=== PATIENT | male | born 1970 | race Caucasian/White ===

== ENCOUNTER 2021-11-05 10:22 | Emergency (ER) | payer SELFPAY ==
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
[2021-11-05 11:45] VITALS: BP 143/88; PULSE 98; RESP 16; TEMP 36.8; O2SAT 99; BMI 24.5
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
== END 2021-11-05 15:49 | disposition home or self-care (01) ==
PROVIDERS: Emergency Provider Student in an Organized Health Care Education/Training Program
DX: S06.0X9A Concussion with loss of consciousness of unspecified duration, initial encounter (principal); V89.2XXA Person injured in unspecified motor-vehicle accident, traffic, initial encounter; Y93.9 Activity, unspecified; Y92.410 Unspecified street and highway as the place of occurrence of the external cause; Y99.9 Unspecified external cause status
CPT/HCPCS: 70450; 72125; 99283; 99284

== ENCOUNTER → 2022-09-23 09:11 | Outpatient (BNVA) | payer OTHER, SELFPAY | PROVIDERS: Visit Provider Physician Assistant Medical | DX: S83.92XA Sprain of unspecified site of left knee, initial encounter (principal); X50.1XXA Overexertion from prolonged static or awkward postures, initial encounter | CPT/HCPCS: 73564; 99203 ==

== ENCOUNTER → 2022-09-30 14:13 | Outpatient (BNVA) | payer OTHER, SELFPAY | PROVIDERS: Visit Provider Physician Assistant Medical | DX: S83.92XA Sprain of unspecified site of left knee, initial encounter (principal); X50.1XXA Overexertion from prolonged static or awkward postures, initial encounter | CPT/HCPCS: 99213 ==

== ENCOUNTER 2022-10-08 19:29 | Outpatient (REF) | payer OTHER, SELFPAY ==
--- NOTE | ~2022-10-08 | MR_ITS ---
EXAMINATION: MR KNEE WITHOUT CONTRAST, LEFT CLINICAL INFORMATION: Left knee pain, swelling, numbness. Fall with twisting injury. COMPARISON: Left knee radiographs dated 09/23/2022. TECHNIQUE: MRI of the knee without contrast was performed using routine sequences on a high-field scanner. FINDINGS: MENISCI: Medial Meniscus: Nondisplaced oblique tibial articular surface tear through the posterior meniscal body extending to the posterior horn where there is minimal inner margin fraying. Lateral Meniscus: Intact. LIGAMENTS: Cruciate: Intact. Collateral: Edema adjacent to the medial collateral ligament consistent with a grade 1 sprain. Intact fibular collateral ligament. EXTENSOR MECHANISM: Intact. ARTICULAR CARTILAGE/BONE: Patellofemoral Compartment: Normal. Medial Compartment: Intact articular cartilage. Anterior marrow edema consistent with an osseous contusion. Lateral Compartment: Normal. JOINT FLUID AND BURSAE: Trace joint effusion and trace Neri's cyst. MR/MR knee LT wo con IMPRESSION: Nondisplaced oblique tibial articular surface tear through the posterior medial meniscal body extending to the posterior horn with minimal inner margin fraying. Grade 1 sprain of the medial collateral ligament. Osseous contusion at the anterior aspect of the medial femoral condyle. No articular cartilage defect. Trace joint effusion and trace Neri's cyst.
== END 2022-10-08 19:30 | disposition home or self-care (01) ==
LOC: HO.MRI 19:29
PROVIDERS: Visit Provider Internal Medicine
DX: M25.562 Pain in left knee (principal); R60.0 Localized edema
CPT/HCPCS: 73721

== ENCOUNTER → 2022-10-14 13:59 | Outpatient (BNVA) | payer OTHER, SELFPAY | PROVIDERS: Visit Provider Physician Assistant Medical | DX: M23.92 Unspecified internal derangement of left knee (principal); S86.21 Strain of muscle(s) and tendon(s) of anterior muscle group at lower leg level; S76.312D Strain of muscle, fascia and tendon of the posterior muscle group at thigh level, left thigh, subsequent encounter; X50.1XXD Overexertion from prolonged static or awkward postures, subsequent encounter | CPT/HCPCS: 73502; 99214 ==

== ENCOUNTER 2022-10-29 13:35 | Outpatient (REF) | payer OTHER, SELFPAY ==
--- NOTE | ~2022-10-29 | MR_ITS ---
EXAMINATION: MR HIP WITHOUT CONTRAST, LEFT CLINICAL INFORMATION: Fall. Pain. Numbness. COMPARISON: Pelvic and left hip radiograph dated 10/14/2022. TECHNIQUE: MRI of the left hip was obtained using routine sequences on a high-field magnet. FINDINGS: ACETABULAR LABRUM: No displaced labral tear. ARTICULAR CARTILAGE/BONE: Intact articular cartilage. No stress reaction, fracture, or avascular necrosis. No concerning lytic or blastic osseous lesion. The acetabular depth is within normal limits. MUSCLES/TENDONS: The visualized muscles and tendons are intact. No evidence of acute injury. JOINT FLUID/BURSA: No significant joint effusion. INTRAPELVIC STRUCTURES: Unremarkable. MR/MR hip LT wo con IMPRESSION: No displaced several tear. No acute osseous injury. No stress reaction, fracture, or avascular necrosis.
== END 2022-10-29 13:36 | disposition home or self-care (01) ==
LOC: HO.MRI 13:35
PROVIDERS: Visit Provider Internal Medicine
DX: M25.552 Pain in left hip (principal); Z91.81 History of falling
CPT/HCPCS: 73721

== ENCOUNTER 2022-10-30 10:00 | Outpatient (RCR) | payer OTHER, SELFPAY ==
--- NOTE | 2022-10-21 18:37 | MHC.PT.EP ---
[facility] [place] Office [place] Office [place] Office [address] Fany Gastelum [address] [phone] F: [phone] F: [phone] F: [phone] F: [phone] Physical Therapy Plan of Care Date of Evaluation: Date of Surgery: Diagnosis: L hip and thigh contusion/ sprain Assessment: Pt is a 52 y/o male referred to PT for eval and treat of L hip and thigh pain resulting in decreased tolerance for walking, standing, squatting, performing heavy HH chores, negotiating stairs as well as sitting for duration secondary to decreased L knee and hip ROM, gait abnormality, increased LE tissue tension, evidence of osseous contusion, MCL and medial meniscus involvement in L knee on MRI, and pain. Pt is deemed an appropriate candidate to receive skilled PT services to address their physical impairments in order to improve their functional ability. Frequency and Duration: The patient will be seen 2x/ wk x 8 wks Short Term Goals: Initiate HEP. Pt will ambulate w/o AD; current: x1 axillary crutch. Fci Goals: I with HEP. Improve L knee flexion and extension MMT by at least 1/2 MMT grade. Pt will negotiate 1 fl of stairs reciprocally; initial: non reciprocal. Pt will be able to walk 2 blocks with at most a little bit of difficulty; initial: unable or with extreme difficulty. Treatment Plan: Modalities to reduce pain, spasms and effusion. Manual therapy to restore motion and function. Therapeutic exercise to improve strength and flexibility. Neuromuscular re-education for posture and balance. Therapeutic activities to return to functional activities of daily living. Electronically signed by: Ray Douglas PT Please sign and return to therapist. Thank you for your referral.
--- NOTE | 2022-11-13 07:20 | MHC.PT.DC ---
[facility] [place] Office [place] Office [place] Office [address] Fany Gastelum [address] [phone] F: [phone] F: [phone] F: [phone] F: [phone] Physical Therapy Discharge Report Diagnosis: L hip and thigh contusion/ sprain Date of Surgery: Date of Evaluation: 10/21/22 Date of Discharge: 11/13/22 Treatments to Date: 2 Cancellations to Date: No Shows to Date: Discharge Status: Patient Elected to Stop Discharge Summary: Therapy informed Pt will be having surgery. Electronically signed by: Ray Douglas PT. Please sign and return to therapist. Thank you for your referral.
== END 2022-11-13 07:21 | disposition home or self-care (01) ==
LOC: HO.PTCHIC 10:00
PROVIDERS: Visit Provider Physician Assistant Medical
DX: S70.02XD Contusion of left hip, subsequent encounter (principal); S70.12XD Contusion of left thigh, subsequent encounter; S76.912D Strain of unspecified muscles, fascia and tendons at thigh level, left thigh, subsequent encounter
CPT/HCPCS: 97110; 97116; 97161

== ENCOUNTER → 2022-11-03 11:01 | Outpatient (BNVA) | payer OTHER, SELFPAY | PROVIDERS: Visit Provider Physician Assistant Medical | DX: S76.012D Strain of muscle, fascia and tendon of left hip, subsequent encounter (principal); S83.92XD Sprain of unspecified site of left knee, subsequent encounter; X50.1XXD Overexertion from prolonged static or awkward postures, subsequent encounter | CPT/HCPCS: 99213 ==

== ENCOUNTER 2022-12-17 10:00 | Outpatient (RCR) | payer OTHER, SELFPAY | END 2022-12-18 10:42 | disposition home or self-care (01) | LOC: HO.PTCHIC 10:00 | PROVIDERS: Visit Provider Orthopaedic Surgery | DX: S70.02XD Contusion of left hip, subsequent encounter (principal) | CPT/HCPCS: 97110; 97161 ==

== ENCOUNTER 2023-04-26 07:00 | Outpatient (RCR) | payer OTHER, SELFPAY | END 2023-05-07 14:40 | disposition home or self-care (01) | LOC: HO.PTCHIC 07:00 | PROVIDERS: Visit Provider Orthopaedic Surgery | DX: Z98.890 Other specified postprocedural states (principal) | CPT/HCPCS: 97110; 97112; 97140; 97161 ==

== ENCOUNTER 2023-11-23 10:50 | Emergency (ER) | payer MEDICAID, SELFPAY ==
--- NOTE | ~2023-11-23 | XR_ITS ---
EXAMINATION: XR CHEST 2 VIEW CLINICAL INFORMATION: Cough and fevers COMPARISON: None TECHNIQUE: PA and lateral views of the chest obtained. FINDINGS: The lungs are clear. There are no pleural effusions. The cardiomediastinal silhouette is normal. XR/XR chest 2V IMPRESSION: No acute cardiopulmonary disease.
[2023-11-23 10:53] VITALS: BP 146/97; PULSE 96; RESP 19; TEMP 36.6; O2SAT 98; BMI 22.7
[2023-11-23 11:31] LABS: IDNOW Serial# 08D9AD1C
[2023-11-23 11:32] LABS: COVID-19 Test Negative (Negative); IDNOW Serial# 152EDE1D; Influenza A Negative (Negative); Influenza B2 Negative (Negative)
--- NOTE | 2023-11-23 11:41 | ED_ITS ---
HPI - URI/Sore Throat General Chief Complaint: Upper Respiratory Symptoms Stated Complaint: Fever Body Aches Time Seen by Provider: 11/23/23 12:46 Source: patient Mode of arrival: ambulatory Limitations: no limitations History of Present Illness HPI Narrative: Patient is a 53-year-old male presenting to the emergency department with complaint of night sweats and chills for the past 4 days as well as nonproductive cough and body aches. Did not check temperature with thermometer. States that since November 01 he has had a an unintentional 10 lb weight loss as well as decreased appetite. Reports intermittent abdominal pain to all different quadrants of his abdomen. Reports 1 episode of diarrhea in the morning for the past 4 mornings, denies any nausea, vomiting, constipation. States that he was seen in [facility] Emergency Department on / and was referred to an outpatient doctor who ordered an ultrasound which he has scheduled for Wednesday. Currently does not have a PCP but is attempting to establish one. Denies chest pain, palpitations, dizziness, lightheadedness. Does report some dysuria, denies back or flank pain. MD elicited complaint: fever and cough Onset (ago): day(s) Associated symptoms: fever, chills and myalgias Treatments prior to arrival: none Related Data Allergies Allergy/AdvReac Type Severity Reaction Status Date / Time No Known Allergies Allergy Verified 11/05/21 11:48 Review of Systems 2 Review of Systems: As per HPI. Yes all other systems are reviewed and are negative Constitutional: Constitutional: Reports as per HPI [facility] Past Medical History Medical History (Updated 11/23/23 @ 14:14 by Ruthie Mccabe NP) No known health problems Social History Social History Smoked in Last 30 Days: No Use of substances other than those prescribed or required for medical reasons: No Advance Directives: No Physical Exam 2 Vital Signs: Vital Signs: Last Vital Signs Temp 98 F 11/23/23 10:53 Pulse 96 11/23/23 10:53 Resp 19 11/23/23 10:53 BP 146/97 H 11/23/23 10:53 Pulse Ox 98 11/23/23 10:53 O2 Del Method Room Air 11/23/23 10:53 BMI result Body Mass Index 22.7 Vital signs have been reviewed and appear to be correct. Blood pressure elevated. Heart rate normal. Respiratory rate normal. Temperature normal. Oxygen saturation normal. Const: General: cooperative, healthy appearing and no acute distress O rientation/consciousness: oriented to person, oriented to place, oriented to time and patient oriented x3 Limitations: no limitations HEENT: Head: Yes normocephalic and Yes atraumatic Ears: external ears normal General nose exam: Normal external nose present Face and sinus: Yes face symmetric Mouth: oropharynx normal and moist mucous membranes Throat: Yes uvula midline Eyes: Pupils: Equal, round and reactive pupils present Neck: Neck: Yes normal visual inspection and Yes supple Resp: Effort & Inspection: normal respiratory effort and able to speak in complete sentences Auscultation: clear to auscultation bilaterally and wheezes scattered wheezes Cardio: Rate: regular rate Rhythm: regular rhythm Heart sounds: S1 normal heart sound present and S2 normal heart sound present GI: Inspection: Yes normal to inspection Palpation (GI): Soft to palpation and nontender Auscultation: normoactive bowel sounds : General: Yes no CVA tenderness Back/Spine/Pelvis: Back: no CVA tenderness Skin: Other: very slight erythematous excoriation to right lateral ribs, no vesicles, no warmth General skin exam: elasticity normal and turgor normal Neuro: General: oriented to person, oriented to place, oriented to time, patient oriented x3, moves all extremities, no focal motor deficits and CN's II- XI intact bilaterally Cranial nerves: Yes Equal, round and reactive pupils present Cognition (Neuro): normal cognition Extrem: General: Yes full ROM, Yes no pedal edema and Yes no calf tenderness Psych: Mental Status: mental status grossly normal Affect: normal affect Thought process: Normal thought process present Course Course Course Narrative: RME: 53 year-old M w/ no sig PMHx presenting to the ED c/o chills, night sweats, mild SOB, rash x few days and 10lb weight loss since XM. Lungs CTA COVID & FLU neg tpday EKG, Labs, UA ordered Full HPI, ROS and PE to be performed by primary ED provider. Medical Decision Making Medical Decision Making [facility] Narrative: Patient is a 53-year-old male presenting to the emergency department with complaint of night sweats and chills for the past 4 days as well as nonproductive cough and body aches. On exam patient is awake, A+Ox3, VS WNL, afebrile, normal neurological exam without focal deficits, physical exam findings as above. Given reported symptoms and physical exam findings, initial differential includes viral illness, covid, influenza, UTI, bronchitis, pneumonia, contact dermatitis versus superficial abrasion. Rash not consistent with folliculitis, herpes zoster, bed bugs, scabies. Labs unremarkable. X-ray chest notable for no evidence of pneumonia. My interpretation is in agreement with the radiologist's interpretation. UA notable for trace blood, 6-10 RBCs. Results discussed with patient and all questions answered. Recent symptoms most consistent with viral illness however feel patient should be followed by PCP. Patient provided with resources for this in the ED. Advised patient to alternate Tylenol and ibuprofen for fever/discomfort. Return precautions discussed at bedside. Patient verbalized understanding of and agreement with plan. Differential Diagnosis Differential Diagnoses: The differential diagnosis associated with the presentation includes As per MDM. Lab Data [facility] Lab Attestation statement: I reviewed the patient's lab results. As per [facility]. 11/23/23 12:06 11/23/23 12:06 Labs: Lab Results 11/23/23 11/23/23 11/23/23 Range/Units 11:00 12:06 13:21 WBC 4.4 L (4.8-10.8) X10*3/uL RBC 5.08 (4.60-5.80) X10*6/uL Hgb 15.4 (14.0-18.0) g/dl Hct 44.7 (42.0-52.0) % MCV 88.0 (80.0-98.0) fL MCH 30.3 (27.0-33.0) pg MCHC 34.5 (31.0-36.0) g/dl RDW 12.3 (11.0-16.0) % Plt Count 214 (160-400) X10*3/uL MPV 9.4 (9.4-12.4) fL Immature Gran % (Auto) 0.2 (0.0-0.4) % Neut % (Auto) 50.0 (45-73) % Lymph % (Auto) 35.2 (20-40) % [place] % (Auto) 13.9 H (2-11) % Eos % (Auto) 0.5 (0-4) % Baso % (Auto) 0.2 (0-2) % Lymph # (Auto) 1.5 (1.2-4.9) X10*3/uL [place] # (Auto) 0.6 (0.1-1.2) X10*3/uL Eos # (Auto) 0.0 (0.0-0.4) X10*3/uL Baso # (Auto) 0.0 (0.0-0.2) X10*3/uL Abs Immat Gran (auto) 0.01 (0.00-0.03) X10*3/uL Absolute Neuts (auto) 2.2 (2.0-8.3) x10*3/uL Absolute Nucleated RBC 0.000 (0.0-0.012) X10*3/uL Nucleated RBC % (auto) 0.0 (0.0-0.2) /100WBC Sodium 141 (135-145) mmol/L Potassium 3.8 (3.3-5.1) mmol/L Chloride 108 (96-108) mmol/L Carbon Dioxide 27 (22-29) mmol/L Anion Gap 10 L (12-20) BUN 16 (9-16) mg/dL Creatinine 0.84 (0.5-1.4) mg/dL Estim Creat Clear Calc 96.7 Estimated GFR > 60 Random Glucose 103 (60-115) mg/dL Calcium 9.2 (8.4-10.2) mg/dL Magnesium 1.9 (1.6-2.6) mg/dL Total Bilirubin 0.8 (0.0-1.0) mg/dL Direct Bilirubin 0.3 (0.0-0.5) mg/dL AST 18 (5-37) U/L ALT 29 (0-40) U/L Alkaline Phosphatase 58 (39-117) U/L Total Protein 7.3 (6.5-8.0) g/dL Albumin 4.0 (3.5-5.0) g/dL Lipase 35 (8-78) U/L Urine Color Dark Yellow Urine Appearance Clear Urine pH 5.5 (5.0-9.0) Ur Specific [place] 1.025 (1.005-1.025) Urine Protein Trace (Neg-Trace) mg/dL Urine Glucose (UA) Negative (Negative) mg/dL Urine Ketones 15 (Negative) mg/dL Urine Blood Trace H (Negative) Urine Nitrite Negative (Negative) Ur Leukocyte Esterase Negative (Negative) Urine RBC 6-10 H (0-2) /HPF Urine WBC 0-5 (0-5) /HPF Ur Squamous Epith Cells 0-2 (0-2) /HPF Urine Bacteria None Seen (None Seen) Hyaline Casts 3-5 (0-2) /LPF COVID-19 (JOSE [facility] JESUS) Negative (Negative) COVID-19 Clin Com See Note Influenza Type A (MARIELA) Negative (Negative) Influenza Type B (MARIELA) Negative (Negative) Influenza A & B Note See Note Independent Interpretation I performed an independent interpretation of an: Plain X-Ray Interpretation: No evidence of pneumonia Radiology Impression Discussion of test interpretation with radiology: I have reviewed the radiologist's reading. Radiologist Impression: XR/XR chest 2V IMPRESSION: No acute cardiopulmonary disease. External Record Review External record reviewed: Inpatient record, Office record and Outpatient record Discharge Plan Discharge Clinical Impression: Viral infection Patient Disposition: Home, Self-Care Instructions: Viral Syndrome (ED) Additional Instructions: You were evaluated in the emergency department today for fever and cough. Your Covid and flu tests were negative. Your urinalysis did not show signs of infection. Your chest x-ray did not show evidence of pneumonia. Your symptoms are likely related to a viral illness which will resolve on its own with time and rest. You should ensure adequate fluid intake, and can use Tylenol 650 mg or ibuprofen 600 mg every 6 hours as needed for fever or discomfort. Please continue to attempt to establish care with a primary care for further evaluation of your ongoing symptoms. Return to the emergency department if you develop chest pain, worsening shortness of breath, difficulty swallowing, fever 100.4? F or greater or any other concerning symptoms.
[2023-11-23 12:11] LABS: MANUAL DIFF FLAG NO
[2023-11-23 12:14] LABS: Basophils Percent Auto 0.2 % (0-2); Eosinophils Percent Auto 0.5 % (0-4); Hematocrit 44.7 % (42.0-52.0); Hemoglobin 15.4 g/dl (14.0-18.0); Imm Gran Abs Auto 0.01 X10*3/uL (0.00-0.03); Imm Gran Pct Auto 0.2 % (0.0-0.4); Lymphocytes Absolute Auto 1.5 X10*3/uL (1.2-4.9); Lymphocytes Percent Auto 35.2 % (20-40); Mean Corpuscular HGB Conc 34.5 g/dl (31.0-36.0); Mean Corpuscular Hemoglobin 30.3 pg (27.0-33.0); Mean Platelet Volume 9.4 fL (9.4-12.4); Monocytes Absolute Auto 0.6 X10*3/uL (0.1-1.2); Monocytes Percent Auto 13.9 % (2-11); Neutrophils Absolute Auto 2.2 x10*3/uL (2.0-8.3); Platelet Count 214 X10*3/uL (160-400); Red Blood Count 5.08 X10*6/uL (4.60-5.80); Red Cell Distribution Width 12.3 % (11.0-16.0); White Blood Count 4.4 X10*3/uL (4.8-10.8)
[2023-11-23 12:29] LABS: Alanine Aminotransferase 29 U/L (0-40); Alkaline Phosphatase 58 U/L (39-117); Anion Gap 10 (12-20); Aspartate Amino Transferase 18 U/L (5-37); Bilirubin Direct 0.3 mg/dL (0.0-0.5); Bilirubin Total 0.8 mg/dL (0.0-1.0); Blood Urea Nitrogen 16 mg/dL (9-16); Calcium 9.2 mg/dL (8.4-10.2); Carbon Dioxide 27 mmol/L (22-29); Chloride 108 mmol/L (96-108); Creatinine Clr Calc Pharmacy 96.7; Estimated Glomerular Filt Rate > 60; Glucose Random 103 mg/dL (60-115); Lipase 35 U/L (8-78); Magnesium 1.9 mg/dL (1.6-2.6); Potassium 3.8 mmol/L (3.3-5.1); Sodium 141 mmol/L (135-145); Total Protein 7.3 g/dL (6.5-8.0)
--- NOTE | 2023-11-23 13:25 | PC.NURSE ---
pt from home reporting 4 nights of sweating, chills and red spots on ribs. pt noted to have a rash under the right armpit. pt reports he was told by a pcp he may have shingle. pt respirations even and unlabored.
--- NOTE | 2023-11-23 13:25 | PC.NURSE ---
urine sample obtained and sent at this time.
[2023-11-23 13:29] LABS: Appearance Urine Clear; Color Urine Dark Yellow; Glucose Urine UA Negative (Negative); Leukocyte Esterase Urine Negative (Negative); Nitrite Urine Negative (Negative); PH 5.5 (5.0-9.0); Specific Gravity - Urine 1.025 (1.005-1.025); UMIC TRIGGER UACC YES; Urine Blood Trace (Negative); Urine Ketones 15 mg/dL (Negative); Urine Protein Trace mg/dL (Neg-Trace)
[2023-11-23 13:31] LABS: Bacteria Urine None Seen (None Seen); Squamous Epithelial Cell Urine 0-2 /HPF (0-2); WBC Urine 0-5 /HPF (0-5)
== END 2023-11-23 16:12 | disposition home or self-care (01) ==
PROVIDERS: Physician Assistant; Emergency Provider Emergency Medicine Emergency Medical Services
DX: B34.9 Viral infection, unspecified (principal); Z11.52 Encounter for screening for COVID-19; R06.02 Shortness of breath; R30.0 Dysuria
CPT/HCPCS: 36415; 71046; 80048; 80076; 81001; 83690; 83735; 85025; 87502; 87635; 99283; 99284

== ENCOUNTER 2024-02-02 10:40 | Outpatient (REF) | payer MEDICAID, SELFPAY ==
[2024-02-02 14:15] LABS: MANUAL DIFF FLAG NO
[2024-02-02 14:18] LABS: Basophils Percent Auto 0.5 % (0-2); Eosinophils Absolute Auto 0.2 X10*3/uL (0.0-0.4); Eosinophils Percent Auto 4.2 % (0-4); Hematocrit 45.3 % (42.0-52.0); Hemoglobin 15.2 g/dl (14.0-18.0); Imm Gran Abs Auto 0.02 X10*3/uL (0.00-0.03); Imm Gran Pct Auto 0.3 % (0.0-0.4); Lymphocytes Absolute Auto 1.4 X10*3/uL (1.2-4.9); Lymphocytes Percent Auto 23.8 % (20-40); Mean Corpuscular HGB Conc 33.6 g/dl (31.0-36.0); Mean Corpuscular Hemoglobin 30.3 pg (27.0-33.0); Mean Corpuscular Volume 90.4 fL (80.0-98.0); Mean Platelet Volume 10.6 fL (9.4-12.4); Monocytes Absolute Auto 0.6 X10*3/uL (0.1-1.2); Monocytes Percent Auto 9.6 % (2-11); Neutrophils Absolute Auto 3.5 x10*3/uL (2.0-8.3); Neutrophils Percent Auto 61.6 % (45-73); Platelet Count 260 X10*3/uL (160-400); Red Blood Count 5.01 X10*6/uL (4.60-5.80); Red Cell Distribution Width 12.7 % (11.0-16.0); White Blood Count 5.8 X10*3/uL (4.8-10.8)
[2024-02-02 14:50] LABS: Alanine Aminotransferase 18 U/L (0-40); Albumin Level 4.2 g/dL (3.5-5.0); Alkaline Phosphatase 54 U/L (39-117); Anion Gap 10 (12-20); Aspartate Amino Transferase 13 U/L (5-37); Bilirubin Direct 0.3 mg/dL (0.0-0.5); Bilirubin Total 1.1 mg/dL (0.0-1.0); Blood Urea Nitrogen 18 mg/dL (9-16); Calcium 9.6 mg/dL (8.4-10.2); Carbon Dioxide 31 mmol/L (22-29); Chloride 104 mmol/L (96-108); Cholesterol 174 mg/dL (<200); Estimated Glomerular Filt Rate > 60; Glucose Random 101 mg/dL (60-115); HDL Cholesterol 41 mg/dL (>40); LDL Cholesterol Calculated 105 mg/dL (<100); Sodium 141 mmol/L (135-145); Total Protein 7.4 g/dL (6.5-8.0); Triglycerides 143 mg/dL (<150)
[2024-02-02 15:00] LABS: PSA,Total (Free>4and<10) 1.82 ng/mL (0.00-4.00)
[2024-02-02 15:06] LABS: TSH reflex Free T4 0.16 uIU/mL (0.32-4.0)
[2024-02-02 15:28] LABS: Appearance Urine Cloudy; Color Urine Yellow; Glucose Urine UA Negative (Negative); Leukocyte Esterase Urine Negative (Negative); Nitrite Urine Negative (Negative); PH 7.5 (5.0-9.0); Urine Blood Negative (Negative); Urine Ketones Negative (Negative); Urine Protein Negative (Neg-Trace)
[2024-02-02 16:04] LABS: Free T4 (Free Thyroxine) 0.93 ng/dL (0.71-1.85)
[2024-02-02 16:17] LABS: CT PCR NOT DETECTED (Not Detect.); NG PCR NOT DETECTED (Not Detect.)
[2024-02-03 07:05] LABS: HBc Num1 0.08 S/CO (0.00-0.79); HBsAGNum1 0.37 S/CO (0.00-0.99); HIV AB/AG Nonreactive (Nonreactive); HIV Num 1 0.05 S/CO (0.00-0.99); Hepatitis A Antibody IgM 0.12 Index (0-0.79); Hepatitis B Core Antibody Nonreactive (Nonreactive); Hepatitis B Surface Antigen Negative (Negative); ~HepC Num1 0.08 S/CO (0.00-0.79); ~Hepatitis A Antibody IgM Nonreactive (Nonreactive); ~Hepatitis B Surface Antibody NONREACTIVE (Nonreactive); ~Hepatitis C Antibody Nonreactive (Nonreactive)
[2024-02-03 07:17] LABS: Syphilis Screen Nonreactive (Nonreactive)
== END 2024-02-02 10:41 | disposition home or self-care (01) ==
LOC: HO.CHCLDS 10:40
PROVIDERS: Visit Provider Pediatrics
DX: Z11.4 Encounter for screening for human immunodeficiency virus [HIV] (principal); Z11.3 Encounter for screening for infections with a predominantly sexual mode of transmission; N20.0 Calculus of kidney; K40.90 Unilateral inguinal hernia, without obstruction or gangrene, not specified as recurrent
CPT/HCPCS: 0353U; 36415; 80053; 80061; 81003; 82248; 84153; 84439; 84443; 85025; 86704; 86706; 86709; 86780; 86803; 87340; 87389

== ENCOUNTER 2024-02-09 11:54 | Emergency (ER) | payer MEDICAID, SELFPAY ==
--- NOTE | ~2024-02-09 | CT_ITS ---
EXAMINATION: CT ABDOMEN AND PELVIS WITH CONTRAST CLINICAL INFORMATION: Right groin pain. COMPARISON: None available. TECHNIQUE: Multidetector volumetric images were obtained from the superior aspect of the liver through the pubic symphysis following administration 85 mL of Omnipaque 350 intravenous contrast. Sagittal and coronal reformatted images were obtained on the technologist's workstation. Oral contrast: No This CT examination was performed using dose optimization techniques as appropriate, variously including the following: *Automated exposure control *Adjustment of mA and/or kV according to patient size (this includes techniques or standardized protocols for targeted exams where dose is matched to indication/reason for exam; i.e. extremities or head) *Use of iterative reconstruction technique DLP: 415 mGy-cm FINDINGS: LUNG BASES: The visualized lung bases are unremarkable. LIVER, GALLBLADDER, AND BILIARY TREE: There are subcentimeter hypodensities within the liver too small to characterize but likely small cysts. There is no intrahepatic biliary duct dilatation. The gallbladder is unremarkable with no evidence of radiopaque gallstones, gallbladder wall thickening, or obvious pericholecystic inflammatory changes. PANCREAS: Unremarkable. SPLEEN: Unremarkable. ADRENAL GLANDS: Unremarkable. KIDNEYS AND URETERS: The kidneys are normal in size, shape, and attenuation. No hydronephrosis, hydroureter, or calculi seen. No perinephric stranding. There is a 3.1 cm cyst midpole right kidney and a 2 cm cyst lower pole left kidney. There is a subcentimeter hypodensity lower pole left kidney also likely a cyst. BLADDER: Unremarkable. GASTROINTESTINAL TRACT: The small and large bowel are unremarkable. The appendix is not seen. There is minimal infiltrative changes in the right lower quadrant extending toward the right groin likely postprocedural. ABDOMINAL WALL: There are surgical clips in the region of the right groin. There is no evidence for hernia recurrence or fluid collection. LYMPH NODES: Normal. VASCULAR: Unremarkable. PELVIC VISCERA: Unremarkable. OSSEOUS STRUCTURES: Unremarkable. CT/CT abdomen pelvis w IV con IMPRESSION: 1. Postsurgical changes in the right groin. No evidence for hernia recurrence or fluid collection. 2. Bilateral renal cysts. 3. Subcentimeter hypodensities in the liver too small to characterize but likely small cysts. Fleischner guidelines were followed.
[2024-02-09 12:30] VITALS: BP 151/92; PULSE 81; RESP 18; TEMP 36.6; O2SAT 98; BMI 23.4
--- NOTE | 2024-02-09 12:32 | ED_ITS ---
HPI - General Adult General Chief complaint: Abdominal Pain Stated complaint: Pain R Groin Area Time Seen by Provider: 02/09/24 22:05 Source: patient Mode of arrival: ambulatory Limitations: no limitations History of Present Illness HPI narrative: 54-year-old male who had a right groin hernia repair on 01/19/2024 (2 weeks prior) at [facility]. Patient states that since the surgery he has had constant right groin pain and he now believes that there is a mass in his right groin area. The patient is concerned that his hernia has recurred. He states he has not followed up with a surgeon yet. Patient states the pain is a constant, tightness which is 9/10 at its worst. Patient denied nausea vomiting. He states he did have a bowel movement today but otherwise as felt very constipated. He denies feeling bloated. Patient has been taking tramadol with only minimal relief his pain. Related Data Previous Rx's ?Medication ?Instructions ?Recorded oxycodone 5 mg tablet 5 mg PO Q6H PRN pain #10 tabs 02/10/24 Allergies Allergy/AdvReac Type Severity Reaction Status Date / Time No Known Allergies Allergy Verified 02/09/24 12:33 Review of Systems 2 Review of Systems: Yes all other systems are reviewed and are negative [facility] Past Medical History [facility] Narrative: Past medical history: None. Surgical history: Appendectomy, right groin hernia repair 2 weeks prior at [facility], 2 previous hernia repairs, testicular torsion. Social history: He denies tobacco use. He occasionally drinks alcohol. He denies drug use. Medical History (Updated 02/10/24 @ 02:49 by Salas Wasserman MD) No known health problems Social History Social History Advance Directives: No Advance Directives Information Provided: No Physical Exam ED Vital Signs: Vital Signs - 24 hr 02/09/24 12:30 02/09/24 16:56 02/09/24 21:50 Temperature 97.9 F 98.1 F 98.2 F Pulse Rate 81 73 83 Respiratory Rate 18 16 16 Blood Pressure 151/92 H 150/92 H 154/102 H Pulse Oximetry 98 100 98 Oxygen Delivery Method Room Air Room Air Room Air 02/10/24 00:11 Temperature 98.0 F Pulse Rate 79 Respiratory Rate 14 Blood Pressure 134/83 Pulse Oximetry 98 Oxygen Delivery Method Room Air BMI result Body Mass Index 23.4 Vital signs revealed an elevated blood pressure of 151/92 otherwise unremarkable Exam: General: Awake, alert in no distress Head: Normocephalic, atraumatic Lung: breath sounds symmetric, no wheezing, rales or rhonchi Heart: regular rate and rhythm, normal S1, S2 no murmurs or rubs Abdomen: Patient has evidence of laparoscopic surgery with ecchymosis in the periumbilical area, patient's right groin area does have a 2 x 2 cm mass which is tender to palpation. Patient's penis is uncircumcised and appears to be normal. There has no scrotal masses, testicles are descended bilaterally and nontender. Hernia exam revealed no indirect pulsation bilaterally Psych: Pleasant, cooperative Course Course Course Narrative: RME: 54 yo male here w/ right groin pain x weeks. had hernia repair on 01/27/24, had f/u appointment yesterday regarding continued right groin pain. he was discharged home with follow up appointment in march. here today with continued pain.?denies penile discharge, dysuria, hematuria, abdominal pain. exam limited in triage. labs ordered, UA +/- imaging per primary provider. Full HPI, ROS and PE to be performed by the primary ED provider. Medications Administered Discontinued Medications Generic Name Dose Route Start Last Admin Trade Name Savanna PRN Reason Stop Dose Admin Acetaminophen 650 mg 02/09/24 16:58 02/09/24 17:02 Acetaminophen 325 Mg Tablet PO 02/09/24 16:59 650 mg ONCE ONE Administration Sodium Chloride 1,000 mls @ 999 mls/hr 02/09/24 22:25 02/09/24 23:34 Ns IV 02/09/24 23:25 999 mls/hr .Q1H1M STA Administration Iohexol 85 ml 02/09/24 23:10 02/09/24 23:10 Iohexol 350 Mg/Ml 100 Ml Infus..Btl IV 02/09/24 23:11 85 ml ONCE ONE Administration Ketorolac Tromethamine 15 mg 02/09/24 22:25 02/09/24 23:33 Ketorolac Tromethamine 15 Mg/Ml Vial IVPUSH 02/09/24 22:26 15 mg ONCE STA Administration Ondansetron HCl 4 mg 02/09/24 22:30 02/09/24 23:33 Ondansetron Hcl 4 Mg/2 Ml Vial IVPUSH 02/09/24 22:31 4 mg ONCE ONE Administration Medical Decision Making Medical Decision Making [facility] Narrative: 54-year-old male 2 weeks status post right inguinal hernia repair at [facility] who presents emergency department for evaluation of constant right lower groin pain with a mass in the right groin area. Patient is concerned that his hernias repair was unsuccessfully now has a hernia again. Vital signs did reveal an elevated blood pressure otherwise unremarkable. The patient does have a mass in his right groin area which is tender but he does not have evidence for an indirect hernia. Differential diagnosis: ?Includes but is not limited to inguinal hernia, incarcerated inguinal hernia, hematoma, seroma Following evaluation was ordered: CBC, CMP, urinalysis, CT scan of the abdomen pelvis with IV contrast Patient was initially treated with the following: Normal saline IV x1 L, Toradol 15 mg IV, Zofran 4 mg IV Course: 22:38 My interpretation patient's laboratory evaluation as follows: CBC was normal. CMP was normal. Urinalysis was negative 02:46 Radiology interpretation of the patient's CT scan of the abdomen pelvis revealed no hernia, the patient has post surgical changes in the right groin with no hernia recurrence or fluid collection. I did discuss this with the patient. Patient was advised to continue taking ibuprofen for pain and for pain not relieved by ibuprofen he was prescribed oxycodone. He was given printed and verbal instructions and discharged home. Admission/Observation Consideration of admission/observation: Escalation of care including admission/observation considered Lab Data [facility] Lab Attestation statement: I reviewed the patient's lab results. 02/09/24 13:04 02/09/24 13:04 Labs: Lab Results 02/09/24 02/09/24 Range/Units 13:04 17:07 WBC 7.4 (4.8-10.8) X10*3/uL RBC 5.02 (4.60-5.80) X10*6/uL Hgb 15.2 (14.0-18.0) g/dl Hct 44.6 (42.0-52.0) % MCV 88.8 (80.0-98.0) fL MCH 30.3 (27.0-33.0) pg MCHC 34.1 (31.0-36.0) g/dl RDW 12.5 (11.0-16.0) % Plt Count 252 (160-400) X10*3/uL MPV 9.5 (9.4-12.4) fL Immature Gran % (Auto) 0.4 (0.0-0.4) % Neut % (Auto) 66.9 (45-73) % Lymph % (Auto) 22.6 (20-40) % [place] % (Auto) 8.1 (2-11) % Eos % (Auto) 1.3 (0-4) % Baso % (Auto) 0.7 (0-2) % Lymph # (Auto) 1.7 (1.2-4.9) X10*3/uL Alpine # (Auto) 0.6 (0.1-1.2) X10*3/uL Eos # (Auto) 0.1 (0.0-0.4) X10*3/uL Baso # (Auto) 0.1 (0.0-0.2) X10*3/uL Abs Immat Gran (auto) 0.03 (0.00-0.03) X10*3/uL Absolute Neuts (auto) 5.0 (2.0-8.3) x10*3/uL Absolute Nucleated RBC 0.000 (0.0-0.012) X10*3/uL Nucleated RBC % (auto) 0.0 (0.0-0.2) /100WBC Sodium 142 (135-145) mmol/L Potassium 4.7 (3.3-5.1) mmol/L Chloride 108 (96-108) mmol/L Carbon Dioxide 28 (22-29) mmol/L Anion Gap 11 L (12-20) BUN 20 H (9-16) mg/dL Creatinine 0.89 (0.5-1.4) mg/dL Estim Creat Clear Calc 87.6 Estimated GFR > 60 Random Glucose 106 (60-115) mg/dL Calcium 9.2 (8.4-10.2) mg/dL Total Bilirubin 0.6 (0.0-1.0) mg/dL AST 16 (5-37) U/L ALT 22 (0-40) U/L Alkaline Phosphatase 60 (39-117) U/L Total Protein 7.4 (6.5-8.0) g/dL Albumin 4.1 (3.5-5.0) g/dL Urine Color Yellow Urine Appearance Clear Urine pH 6.0 (5.0-9.0) Ur Specific [place] >= 1.030 H (1.005-1.025) Urine Protein Negative (Neg-Trace) mg/dL Urine Glucose (UA) Negative (Negative) mg/dL Urine Ketones Trace (Negative) mg/dL Urine Blood Negative (Negative) Urine Nitrite Negative (Negative) Ur Leukocyte Esterase Negative (Negative) Radiology Impression Discussion of test interpretation with radiology: I have reviewed the radiologist's reading. Radiologist Impression: CT abdomen pelvis w IV con IMPRESSION: 1. Postsurgical changes in the right groin. No evidence for hernia recurrence or fluid collection. 2. Bilateral renal cysts. 3. Subcentimeter hypodensities in the liver too small to characterize but likely small cysts. Fleischner guidelines were followed. Dictated By: Gopal Arroyo Discharge Plan Discharge Clinical Impression: Severe right groin pain Patient Disposition: Home, Self-Care Additional Instructions: Your blood work was normal The CT scan of your abdomen pelvis did not reveal recurrence of the hernia, fluid collection or infection in the right groin area which is reassuring. The bump and pain is consistent with postsurgical changes and should get better over time. Take ibuprofen 200 mg pills, 3 pills every 6 hours as needed for pain. For pain not relieved by ibuprofen or take oxycodone 5 mg pills, 1 pill every 4 hours as needed for pain. Do not drive or work while taking this medication since they can cause sleepiness. Oxycodone is a narcotic medication that can be addicting. If you are concerned about addiction you can ask the pharmacist for less pills or do not get this prescription filled. Apply ice to the groin area for 15 minutes 4 to 6 times a day that should help reduce the pain and swelling Follow-up with your doctor in 2 days. Please return to the emergency department if your symptoms get worse or if you develop any symptoms that are concerning to you. CT abdomen pelvis w IV con IMPRESSION: 1. Postsurgical changes in the right groin. No evidence for hernia recurrence or fluid collection. 2. Bilateral renal cysts. 3. Subcentimeter hypodensities in the liver too small to characterize but likely small cysts. Fleischner guidelines were followed. Dictated By: Gopal Arroyo Prescriptions: New oxycodone 5 mg tablet 5 mg PO Q6H PRN (Reason: pain) Qty: 10 0RF Rx Instructions: Patient may request partial refill; Partial Fill upon patient request. Print Language: Singaporean
[2024-02-09 13:09] LABS: MANUAL DIFF FLAG NO
[2024-02-09 13:11] LABS: Basophils Absolute Auto 0.1 X10*3/uL (0.0-0.2); Basophils Percent Auto 0.7 % (0-2); Eosinophils Absolute Auto 0.1 X10*3/uL (0.0-0.4); Eosinophils Percent Auto 1.3 % (0-4); Hematocrit 44.6 % (42.0-52.0); Hemoglobin 15.2 g/dl (14.0-18.0); Imm Gran Abs Auto 0.03 X10*3/uL (0.00-0.03); Imm Gran Pct Auto 0.4 % (0.0-0.4); Lymphocytes Absolute Auto 1.7 X10*3/uL (1.2-4.9); Lymphocytes Percent Auto 22.6 % (20-40); Mean Corpuscular HGB Conc 34.1 g/dl (31.0-36.0); Mean Corpuscular Hemoglobin 30.3 pg (27.0-33.0); Mean Corpuscular Volume 88.8 fL (80.0-98.0); Mean Platelet Volume 9.5 fL (9.4-12.4); Monocytes Absolute Auto 0.6 X10*3/uL (0.1-1.2); Monocytes Percent Auto 8.1 % (2-11); Neutrophils Percent Auto 66.9 % (45-73); Platelet Count 252 X10*3/uL (160-400); Red Blood Count 5.02 X10*6/uL (4.60-5.80); Red Cell Distribution Width 12.5 % (11.0-16.0); White Blood Count 7.4 X10*3/uL (4.8-10.8)
[2024-02-09 13:32] LABS: Alanine Aminotransferase 22 U/L (0-40); Albumin Level 4.1 g/dL (3.5-5.0); Alkaline Phosphatase 60 U/L (39-117); Anion Gap 11 (12-20); Aspartate Amino Transferase 16 U/L (5-37); Bilirubin Total 0.6 mg/dL (0.0-1.0); Blood Urea Nitrogen 20 mg/dL (9-16); Calcium 9.2 mg/dL (8.4-10.2); Carbon Dioxide 28 mmol/L (22-29); Chloride 108 mmol/L (96-108); Creatinine Clr Calc Pharmacy 87.6; Estimated Glomerular Filt Rate > 60; Glucose Random 106 mg/dL (60-115); Potassium 4.7 mmol/L (3.3-5.1); Sodium 142 mmol/L (135-145); Total Protein 7.4 g/dL (6.5-8.0)
[2024-02-09 16:56] VITALS: BP 150/92; PULSE 73; RESP 16; TEMP 36.7; O2SAT 100
[2024-02-09] MEDS: Acetaminophen 325 MG TABLET 650 MG PO (17:02)
[2024-02-09 17:25] LABS: Appearance Urine Clear; Color Urine Yellow; Glucose Urine UA Negative (Negative); Leukocyte Esterase Urine Negative (Negative); Nitrite Urine Negative (Negative); Specific Gravity - Urine >= 1.030 (1.005-1.025); Urine Blood Negative (Negative); Urine Ketones Trace mg/dL (Negative); Urine Protein Negative (Neg-Trace)
[2024-02-09 21:50] VITALS: BP 154/102; PULSE 83; RESP 16; TEMP 36.8; O2SAT 98
[2024-02-09] MEDS: iohexoL 350 MG/ML 100 ML INFUS..BTL 85 ML IV (23:10)
[2024-02-09] MEDS: ondansetron HCL 4 MG/2 ML VIAL IVPUSH (23:33)
[2024-02-09] MEDS: Ketorolac Tromethamine 15 MG/ML VIAL IVPUSH (23:33)
[2024-02-09] MEDS: 0.9 % Sodium Chloride 1,000 ML 999 ML IV (23:34)
[2024-02-10 00:11] VITALS: BP 134/83; PULSE 79; RESP 14; TEMP 36.7; O2SAT 98
[2024-02-10 03:26] VITALS: BP 141/95; PULSE 67; RESP 18; TEMP 36.6; O2SAT 98
== END 2024-02-10 03:27 | disposition home or self-care (01) ==
PROVIDERS: Physician Assistant Medical; Emergency Provider Emergency Medicine Emergency Medical Services; PCP Pediatrics
DX: R10.30 Lower abdominal pain, unspecified (principal); K59.00 Constipation, unspecified; N28.1 Cyst of kidney, acquired; Z79.899 Other long term (current) drug therapy
CPT/HCPCS: 36415; 74177; 80053; 81003; 85025; 96374; 96375; 99284; J1885; J2405; Q9967

== ENCOUNTER → 2024-04-14 08:33 | Outpatient (REF) | payer MEDICAID, SELFPAY ==
--- NOTE | 2024-04-14 08:36 | CA_ITS ---
Transthoracic Echocardiogram Patient (Last, First, Middle): Osei Fink, Gender: Male Date of : 1970 Age: 54 Procedure Date: 04/14/2024 Procedure Type: Transthoracic Echocardiogram Location: OP Height: 167.64 cm Weight: 65.77 kg BSA: 1.74 m2 Heart Rate: 72 bpm BP: 132 / 85 mmHg Fox Raiser: SB Referring MD: Nai Menendez MD Symptoms: I10 HTN R07.89 CHEST PAIN Study Quality: Adequate ECG Rhythm: Sinus Conclusions: - The left ventricular systolic function is normal. The calculated ejection fraction is 57% by biplane method. - There is moderate septal asymmetric hypertrophy. - No obvious valvular pathology seen on this study. Findings Left Ventricle Normal left ventricular cavity size. There is mildly increased left ventricular wall thickness. The left ventricular systolic function is normal. The calculated ejection fraction is 57% by biplane method. There is no evidence of regional wall motion abnormalities. Diastolic function is normal for age. There is moderate septal asymmetric hypertrophy. Right Ventricle Mildly increased right ventricular cavity size. There is normal right ventricular systolic function. Atria Both atria are normal in size. Aortic Valve There is a normal trileaflet aortic valve. There is no aortic valve stenosis. There is no aortic valve regurgitation. Mitral Valve The mitral valve appears normal. There is no mitral valve regurgitation. There is no mitral valve stenosis. Pulmonic Valve The pulmonic valve is likely normal. Tricuspid Valve Normal tricuspid valve structure. There is trace tricuspid valve regurgitation. There is no evidence of pulmonary hypertension. Great Vessels The asc aorta and aortic arch are normal in size. Venous The inferior vena cava is normal in size and collapses greater than 50% with inspiration. Pericardium/Pleural There is no evidence of pericardial effusion. Prior Study Comparison No prior study available for comparison. Recommendations, Care & Conclusions No obvious valvular pathology seen on this study. Measurements 2D Linear Measurements IVSd: 1.31 0.6-0.9/0.6-1.0 cm LVIDd: 4.22 3.9-5.3/4.2-5.9 cm LVIDd Index: 2.43 2.4-3.2/2.2-3.1 cm/m2 LVIDs: 3.00 2.0-3.6 cm LVPWd: 1.14 0.7-1.1 cm LA Diam: 3.00 2.7-3.8/3.0-4.0 cm LAIDs Index: 1.72 1.5-2.3 cm/m2 LV Mass: 230.45 67-162/88-224 g LV Mass Index: 132.44 43-95/49-115 g/m2 LVOT Diam: 2.30 3.0+(-)1.3 cm 2D Systolic Function EF 4C: 56.70 >55% EF 2C: 59.30 >55% EF BiP: 56.70 >55% Mitral Valve MV Pk E: 0.57 MV PK A: 0.51 MV Decel Time: 177.00 E/A: 1.10 E'Lateral: 8.16 E'Medial: 6.42 E/E' Med: 8.90 E/E' Lat: 7.00 PHT: 52.00 MVA PHT: 4.23 Decel [place]: 3.24 Aortic Valve AoV Pk Avinash: 1.28 AoV Pk Grad: 7.00 KIKE: 3.13 LVOT LVOT Pk Avinash: 0.98 LVOT Mn Avinash: 0.65 LVOT VTI: 0.18 LVOT Pk Grad: 4.00 LVOT Mn Grad: 2.00 LVOT Diam: 2.30 LVOT Area: 4.15 Diastolic Function MV Pk E: 0.57 MV Pk A: 0.51 E/A: 1.10 E'Medial: 6.42 E/E' Med: 8.90 E' Laterial: 8.16 E/E' Lat: 7.00 Right Ventricle TAPSE (mm): 17.80 TVS' Avinash: 11.00 Tricuspid Valve RA Press: 3.00 Great Vessels Aorta Sinus of Valsalva: 3.40 2.0-3.5 cm Ao Asc: 3.10 2.1-3.4 cm Ao Arch: 2.50 Pulmonary Veins Pulm Vein S/D 0.70 Pulmonary Valve PV Pk Avinash: 1.11 Peak PV Grad: 5.00 Updated in Other Vendor System with Status of Final Kyle Marr MD electronically signed on 04/15/2024 1:20:40 PM with status of Final
== END ==
LOC: HO.CARD 08:33
PROVIDERS: PCP Pediatrics; Visit Provider Internal Medicine
DX: R07.89 Other chest pain (principal); I10 Essential (primary) hypertension
CPT/HCPCS: 93306

== ENCOUNTER → 2024-04-14 08:36 | Outpatient (BNV) | payer MEDICAID, SELFPAY | PROVIDERS: PCP Pediatrics; Visit Provider Internal Medicine | DX: I42.2 Other hypertrophic cardiomyopathy (principal) | CPT/HCPCS: 93306 ==

== ENCOUNTER 2024-05-20 13:38 | Emergency (ER) | payer MEDICAID, SELFPAY ==
--- NOTE | ~2024-05-20 | XR_ITS ---
EXAMINATION: XR CHEST CLINICAL INFORMATION: Chest pain. COMPARISON: Chest radiograph 11/23/2023. TECHNIQUE: 2 views of the chest were obtained. FINDINGS: Normal appearance of the cardiomediastinal silhouette. No focal consolidation, pleural effusion or pneumothorax. No acute osseous findings. Visualized upper abdomen is within normal limits. XR/XR chest 2V IMPRESSION: No acute cardiopulmonary findings.
--- NOTE | 2024-05-20 13:39 | ECG_ITS ---
Test Reason : CHEST PAIN Blood Pressure : / mmHG Vent. Rate : 095 BPM Atrial Rate : 095 BPM P-R Int : 140 ms QRS Dur : 098 ms QT Int : 332 ms P-R-T Axes : 044 -31 027 degrees QTc Int : 417 ms Normal sinus rhythm Left axis deviation Incomplete right bundle branch block Minimal voltage criteria for LVH, may be normal variant ( R in aVL ) Abnormal ECG No previous ECGs available Referred By: Keshia Thurman Electronically Signed By:ERIK MCCONNELL MD
[2024-05-20 13:43] VITALS: BP 138/93; PULSE 94; RESP 18; TEMP 37.1; O2SAT 97; BMI 23.8
[2024-05-20 14:04] LABS: MANUAL DIFF FLAG NO
[2024-05-20 14:06] LABS: Basophils Percent Auto 0.4 % (0-2); Eosinophils Absolute Auto 0.1 X10*3/uL (0.0-0.4); Eosinophils Percent Auto 1.5 % (0-4); Hematocrit 41.8 % (42.0-52.0); Hemoglobin 14.6 g/dl (14.0-18.0); Imm Gran Abs Auto 0.02 X10*3/uL (0.00-0.03); Imm Gran Pct Auto 0.4 % (0.0-0.4); Lymphocytes Absolute Auto 1.6 X10*3/uL (1.2-4.9); Lymphocytes Percent Auto 29.1 % (20-40); Mean Corpuscular HGB Conc 34.9 g/dl (31.0-36.0); Mean Corpuscular Volume 88.7 fL (80.0-98.0); Mean Platelet Volume 9.7 fL (9.4-12.4); Monocytes Absolute Auto 0.4 X10*3/uL (0.1-1.2); Monocytes Percent Auto 7.8 % (2-11); Neutrophils Absolute Auto 3.4 x10*3/uL (2.0-8.3); Neutrophils Percent Auto 60.8 % (45-73); Platelet Count 218 X10*3/uL (160-400); Red Blood Count 4.71 X10*6/uL (4.60-5.80); Red Cell Distribution Width 12.9 % (11.0-16.0); White Blood Count 5.5 X10*3/uL (4.8-10.8)
--- NOTE | 2024-05-20 14:12 | ED_ITS ---
HPI - Chest Pain General Chief Complaint: Chest Pain Stated Complaint: Chest Pain Time Seen by Provider: 05/20/24 14:12 Source: patient Mode of arrival: ambulatory Limitations: no limitations History of Present Illness ED Provider: Keshia Thurman PA-C HPI narrative: Patient is a 54 year old assigned male at with a history of anxiety presenting to the emergency department today with chest pain. Patient states that he woke up with chest pain, left sided neck pain, and pain in his left arm. Patient states that it comes and goes, nothing makes it better and nothing makes it worse. Patient denies any dizziness, lightheadedness, abdominal pain, nausea, vomiting, fever, chills, blurry vision, double vision, loss of vision, difficulty breathing, shortness of breath, back pain, night sweats, pain with urination, increased urinary frequency, increased urinary urgency, blood in his urine or stool, syncope or a near syncopal episode, recent trauma or falls, bowel incontinence, bladder incontinence, or any other complaints at this time. Relieving factors: nothing Exacerbating factors: nothing Treatment prior to arrival: none Risk Factors Coronary artery disease risk factors: none Thoracic aortic dissection risk factors: none Related Data Previous Rx's ?Medication ?Instructions ?Recorded oxycodone 5 mg tablet 5 mg PO Q6H PRN pain #10 tabs 02/10/24 Allergies Allergy/AdvReac Type Severity Reaction Status Date / Time No Known Allergies Allergy Verified 05/20/24 13:44 Review of Systems 2 Constitutional: Constitutional: Reports no additional constitutional complaints, Denies chills, Denies fever(s) and Denies night sweats Eyes: Eyes: Reports no additional eye complaints, Denies blurry vision, Denies change in vision, Denies diplopia, Denies eye discharge, Denies loss of vision and Denies eye pain ENT: Denies dizziness and Reports neck pain Cardiovascular: Cardiovascular: Reports no additional cardiovascular complaints, Reports chest pain, Denies lightheadedness, Denies Loss of Consciousness and Denies dyspnea Respiratory: Respiratory: Reports no additional respiratory complaints and Denies dyspnea Gastrointestinal: Gastrointestinal: Reports no additional gastrointestinal complaints, Denies abdominal pain, Denies melena, Denies hematochezia, Denies change in bowel habits and Denies change in stool character Genitourinary: Genitourinary: Reports no additional male genitourinary complaints, Denies hematuria, Denies oliguria, Denies difficulty urinating, Denies dysuria, Denies urinary frequency, Denies urinary hesitancy, Denies urinary incontinence and Denies urinary urgency Musculoskeletal: Musculoskeletal: Reports no additional musculoskeletal complaints, Reports neck pain, Denies numbness and Denies tingling Neurologic: Denies dizziness, Denies loss of vision, Denies numbness and Denies tingling Psychiatric: Psychiatric: Reports no additional psychiatric complaints Endocrine: Endocrine: Reports no additional endocrine complaints Hematologic/Lymphatic: Hematologic/Lymphatic: Reports no additional hematologic/lymphatic complaints Allergic/Immunologic: Allergic/Immunologic: Reports no additional allergic/immunologic complaints PMFSH Past Medical History Attestation statement: The following information was validated with the patient. Source: old records reviewed and nursing notes reviewed Medical History No known health problems Social History Social History Advance Directives: No Advance Directives Information Provided: No Physical Exam 2 Vital Signs: Vital Signs: Last Vital Signs Temp 97.4 F 05/20/24 16:00 Pulse 55 05/20/24 16:00 Resp 12 05/20/24 16:00 BP 114/74 05/20/24 16:00 Pulse Ox 99 05/20/24 16:00 O2 Del Method Room Air 05/20/24 16:00 BMI result Body Mass Index 23.8 Const: General: cooperative, no acute distress, alert and awake Nutritional Appearance: well nourished Orientation/consciousness: patient oriented x3 Limitations: no limitations HEENT: Head: Yes normal to inspection and Yes atraumatic Ears: hearing grossly normal bilaterally and external ears normal General nose exam: Normal external nose present, no nasal discharge noted and no epistaxis Face and sinus: Yes normal facial exam, No abrasion and No laceration Mouth: Normal oral and palatal mucosa present, no drooling and no muffled voice Eyes: General: appearance normal, both eyes and all related structures P eriorbital: periorbital findings normal Eyelids: Yes eyelids normal C onjunctivae: conjunctivae normal Pupils: Equal, round and reactive pupils present EOM: EOMs intact bilaterally Neck: Neck: Yes normal visual inspection, Yes full ROM and Yes no lymphadenopathy Chest: Chest palpation & inspection: normal inspection of the chest Resp: Effort & Inspection: normal respiratory effort and able to speak in complete sentences GI: Inspection: Yes normal to inspection Neuro: General: patient oriented x3 and moves all extremities Cranial nerves: Yes Equal, round and reactive pupils present Cognition (Neuro): n ormal cognition Extrem: General: Yes normal to inspection, Yes full ROM and Yes capillary refill normal Psych: Appearance: grossly normal Mental Status: mental status grossly normal Affect: normal affect Attitude: cooperative Thought process: N ormal thought process present Thought content: Normal thought content present Insight: Good insight present (Psych) Medications Administered Discontinued Medications Generic Name Dose Route Start Last Admin Trade Name Freq PRN Reason Stop Dose Admin Ketorolac Tromethamine 15 mg 05/20/24 14:42 05/20/24 14:51 Ketorolac Tromethamine 15 Mg/Ml Vial IVPUSH 05/20/24 14:43 15 mg ONCE ONE Administration Medical Decision Making Medical Decision Making MDM Narrative: Patient is a 54 year old assigned male at with a history of anxiety presenting to the emergency department today with chest pain. Patient's physical exam was unremarkable. Patient's blood work was unremarkable. Patient's chest x- ray showed no acute process. I explained my physical exam findings as well as all test results to the patient. I answered all questions asked by the patient. I stressed the importance of the patient taking his medication as directed (either prescribed or as the over the counter packaging recommends). I stressed the importance of the patient following up with his primary care provider. I stressed the importance of the patient returning to the emergency department immediately if his symptoms were to worsen or if he were to develop any dizziness, shortness of breath, difficulty breathing, chest pain, blurry vision, loss of vision, nausea, vomiting, abdominal pain, fever, chills, back pain, or any other complaints. Patient verbalized agreement and understanding with this treatment plan and discharge. Differential Diagnosis Differential Diagnoses: The differential diagnosis associated with the presentation includes Chest pain NSTEMI STEMI Admission/Observation Consideration of admission/observation: Escalation of care including admission/observation considered Patient would have been admitted to the hospital had his work up had any findings where hospital admission was appropriate and his clinical presentation warranted hospital admission. Lab Data [facility] Lab Attestation statement: I reviewed the patient's lab results. My interpretation of these results are in the MDM Rationale portion of this note. 05/20/24 14:00 05/20/24 14:00 Labs: Lab Results 05/20/24 05/20/24 Range/Units 13:57 14:00 WBC 5.5 (4.8-10.8) X10*3/uL RBC 4.71 (4.60-5.80) X10*6/uL Hgb 14.6 (14.0-18.0) g/dl Hct 41.8 L (42.0-52.0) % MCV 88.7 (80.0-98.0) fL MCH 31.0 (27.0-33.0) pg MCHC 34.9 (31.0-36.0) g/dl RDW 12.9 (11.0-16.0) % Plt Count 218 (160-400) X10*3/uL MPV 9.7 (9.4-12.4) fL Immature Gran % (Auto) 0.4 (0.0-0.4) % Neut % (Auto) 60.8 (45-73) % Lymph % (Auto) 29.1 (20-40) % [place] % (Auto) 7.8 (2-11) % Eos % (Auto) 1.5 (0-4) % Baso % (Auto) 0.4 (0-2) % Lymph # (Auto) 1.6 (1.2-4.9) X10*3/uL [place] # (Auto) 0.4 (0.1-1.2) X10*3/uL Eos # (Auto) 0.1 (0.0-0.4) X10*3/uL Baso # (Auto) 0.0 (0.0-0.2) X10*3/uL Abs Immat Gran (auto) 0.02 (0.00-0.03) X10*3/uL Absolute Neuts (auto) 3.4 (2.0-8.3) x10*3/uL Absolute Nucleated RBC 0.000 (0.0-0.012) X10*3/uL Nucleated RBC % (auto) 0.0 (0.0-0.2) /100WBC Sodium 142 (135-145) mmol/L Potassium 4.0 (3.3-5.1) mmol/L Chloride 109 H (96-108) mmol/L Carbon Dioxide 21 L (22-29) mmol/L Anion Gap 16 (12-20) BUN 18 H (9-16) mg/dL Creatinine 1.03 (0.5-1.4) mg/dL Estim Creat Clear Calc 75.7 Estimated GFR > 60 Random Glucose 117 H (60-115) mg/dL Calcium 9.6 (8.4-10.2) mg/dL Total Bilirubin 0.8 (0.0-1.0) mg/dL AST 16 (5-37) U/L ALT 24 (0-40) U/L Alkaline Phosphatase 57 (39-117) U/L Troponin I High Sens < 2.7 (<3.5-35.0) ng/L B-Natriuretic Peptide < 10 (<100) pg/mL Total Protein 7.1 (6.5-8.0) g/dL Albumin 4.1 (3.5-5.0) g/dL Influenza Type A (PCR) NEGATIVE (Negative) Influenza Type B (PCR) NEGATIVE (Negative) RSV RNA Qual (PCR) NEGATIVE (Negative) SARS-CoV-2 RNA (RT-PCR) NEGATIVE (Negative) Independent Interpretation I performed an independent interpretation of an: EKG and Plain X-Ray Interpretation: My interpretation is in agreement with the radiologist's impression of this imaging study. - EXAMINATION: XR CHEST CLINICAL INFORMATION: Chest pain. COMPARISON: Chest radiograph 11/23/2023. TECHNIQUE: 2 views of the chest were obtained. FINDINGS: Normal appearance of the cardiomediastinal silhouette. No focal consolidation, pleural effusion or pneumothorax. No acute osseous findings. Visualized upper abdomen is within normal limits. XR/XR chest 2V IMPRESSION: No acute cardiopulmonary findings. Dictated By: Elisha Coulter Signed By: Electronically signed by Elisha Coulter 05/20/24 1550 - Vent. Rate: 095 BPM Atrial Rate: 095 BPM P-R Int: 140 ms QRS Dur: 098 ms QT Int: 332 ms P-R-T Axes: 044 -31 027 degrees QTc Int: 417 ms Normal sinus rhythm Left axis deviation Incomplete right bundle branch block Minimal voltage criteria for LVH, may be normal variant (R in aVL) Abnormal ECG No previous ECGs available DD/ 1336 Radiology Impression Discussion of test interpretation with radiology: I have reviewed the radiologist's reading. Discharge Plan Discharge Clinical Impression: Atypical chest pain Patient Disposition: Home, Self-Care Instructions: Chest Pain (ED) Additional Instructions: Follow up with your primary care provider. Return to the emergency department immediately if your symptoms worsen or if you develop any dizziness, shortness of breath, difficulty breathing, chest pain, blurry vision, loss of vision, nausea, vomiting, abdominal pain, fever, chills, back pain, or any other complaints. Prescriptions: No Action oxycodone 5 mg tablet 5 mg PO Q6H PRN (Reason: pain) Qty: 10 0RF Rx Instructions: Patient may request partial refill; Partial Fill upon patient request. Referrals: Analy Chen MD [Primary Care Provider] - Print Language: Georgian
[2024-05-20 14:22] LABS: Alanine Aminotransferase 24 U/L (0-40); Albumin Level 4.1 g/dL (3.5-5.0); Alkaline Phosphatase 57 U/L (39-117); Anion Gap 16 (12-20); Aspartate Amino Transferase 16 U/L (5-37); Bilirubin Total 0.8 mg/dL (0.0-1.0); Blood Urea Nitrogen 18 mg/dL (9-16); Calcium 9.6 mg/dL (8.4-10.2); Carbon Dioxide 21 mmol/L (22-29); Chloride 109 mmol/L (96-108); Creatinine Clr Calc Pharmacy 75.7; Estimated Glomerular Filt Rate > 60; Glucose Random 117 mg/dL (60-115); Sodium 142 mmol/L (135-145); Total Protein 7.1 g/dL (6.5-8.0)
[2024-05-20 14:28] LABS: B Type Natriuretic Peptide < 10 pg/mL (<100)
[2024-05-20 14:32] LABS: Troponin-I High Sensitivity < 2.7 ng/L (<3.5-35.0)
[2024-05-20] MEDS: Ketorolac Tromethamine 15 MG/ML VIAL IVPUSH (14:51)
[2024-05-20 15:36] LABS: Influenza A PCR NEGATIVE (Negative); Influenza B PCR NEGATIVE (Negative); Resp Syncy Virus RNA Qual PCR NEGATIVE (Negative); SARS COV2 PCR INHOUSE NEGATIVE (Negative)
[2024-05-20 16:00] VITALS: BP 114/74; PULSE 55; RESP 12; TEMP 36.3; O2SAT 99
[2024-05-20 16:15] VITALS: BP 114/74; PULSE 54; RESP 16; TEMP 36.9; O2SAT 100
== END 2024-05-20 16:20 | disposition home or self-care (01) ==
PROVIDERS: Emergency Provider Emergency Medicine; PCP Pediatrics
DX: R07.89 Other chest pain (principal); I45.10 Unspecified right bundle-branch block; Z03.818 Encounter for observation for suspected exposure to other biological agents ruled out
CPT/HCPCS: 0241U; 71046; 80053; 83880; 84484; 85025; 93005; 96374; 99284; J1885

== ENCOUNTER → 2024-05-20 13:39 | Outpatient (BNV) | payer MEDICAID, SELFPAY | PROVIDERS: Emergency Provider Emergency Medicine; PCP Pediatrics; Visit Provider Internal Medicine Cardiovascular Disease | DX: R94.31 Abnormal electrocardiogram [ECG] [EKG] (principal) | CPT/HCPCS: 93010 ==

== ENCOUNTER 2024-05-31 09:13 | Outpatient (REF) | payer MEDICAID, SELFPAY ==
[2024-05-31 15:14] LABS: PSA,Total (Free>4and<10) 1.62 ng/mL (0.00-4.00)
[2024-06-04 16:08] LABS: Testosterone, Free 90.3 pg/mL (35.0-155.0); Testosterone, Total 544 ng/dL (250-1100)
== END 2024-05-31 09:14 | disposition home or self-care (01) ==
LOC: HO.CHCLDS 09:13
PROVIDERS: Visit Provider Internal Medicine
DX: R39.9 Unspecified symptoms and signs involving the genitourinary system (principal); N52.8 Other male erectile dysfunction
CPT/HCPCS: 36415; 84153; 84402; 84403

== ENCOUNTER 2024-06-13 09:54 | Outpatient (REF) | payer MEDICAID, SELFPAY ==
[2024-06-13 15:26] LABS: TSH reflex Free T4 0.16 uIU/mL (0.32-4.0)
[2024-06-13 15:56] LABS: Free T4 (Free Thyroxine) 0.96 ng/dL (0.71-1.85)
== END 2024-06-13 09:55 | disposition home or self-care (01) ==
LOC: HO.CHCLDS 09:54
PROVIDERS: Visit Provider Internal Medicine
DX: R25.1 Tremor, unspecified (principal); R06.02 Shortness of breath; R07.9 Chest pain, unspecified; R00.2 Palpitations
CPT/HCPCS: 36415; 84439; 84443; 99212

== ENCOUNTER 2024-06-13 13:43 | Outpatient (AMB) | payer MEDICAID, SELFPAY ==
[2024-06-13 14:20] VITALS: BP 132/80; PULSE 63; BMI 23.8
--- NOTE | 2024-06-13 14:20 | A.OFFVIS_ITS ---
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 He was seen in the emergency room on 05/20/2024 for atypical chest pains. He has been experiencing some left-sided chest heaviness and discomfort that radiates to the neck and occasionally the arm accompanied with shortness of breath and blurry vision. He reports he gets fatigued quickly allow shortness of breath. He has occasional marijuana use, no alcohol or nicotine use. He no longer works due to injury. Reports otherwise healthy other than chronic pain from his injury. He is on lisinopril for high blood pressure. He reports his blood pressures are mostly systolic 120-150. Reports a family history in his grandmothers on both sides of cardiac issues. He does report he was told he had a small myocardial infarction when he was in his early 20s but does not have many details on that. Reports today he went to go get blood work and his shirt and chest felt a bubbling sensation and he could see his shirt moving. [facility] Medical History Palpitation Shortness of breath Chest pain Hernia No known health problems Surgical History H/O knee surgery Family History Maternal Grandmother Heart problem Paternal Grandmother Heart problem Social History Alcohol intake: never Patient Tobacco Use Status: Never used Tobacco Review of Systems Const Denies weakness ENT Denies dizziness Card Denies chest pain, Denies chest pain with activity, Denies syncope, Denies rapid heart rate, Denies pedal edema, Denies edema, Denies leg edema, Denies lightheadedness, Reports palpitations, Denies dyspnea, Denies dyspnea on exertion and Denies orthopnea Resp Denies cough, Denies dyspnea and Denies dyspnea on exertion GI Denies hematochezia and Denies change in stool character Musc Denies abnormal gait, Denies muscle cramps, Denies muscle weakness, Denies numbness, Denies radiating pain into limb and Denies tingling Neuro Denies abnormal gait, Denies dizziness, Denies syncope, Denies numbness, Denies tingling and Denies weakness Endo Reports palpitations Physical Exam Vital Signs: Last Vital Signs Pulse 63 06/13/24 14:20 BP 132/80 06/13/24 14:20 BMI result Body Mass Index 23.8 Const General: healthy appearing and no acute distress Orientation/consciousness: patient oriented x3 HEENT Head: Yes normal to inspection Eyes General: appearance normal, both eyes and all related structures Neck Neck: Yes normal visual inspection Chest Chest palpation & inspection: normal inspection of the chest Resp Effort & Inspection: normal respiratory effort Auscultation: clear to auscultation bilaterally Cardio Jugular venous distension: no JVD Palpation: normal PMI Rate: regular rate Rhythm: regular rhythm Heart sounds: S1 normal heart sound present, S2 normal heart sound present, no click, no gallops, no murmurs and no rubs GI Inspection: Yes normal to inspection Palpation (GI): Soft to palpation Skin General skin exam: no rashes or lesions noted Neuro General: patient oriented x3 Extrem General: Yes normal to inspection Psych Appearance: grossly normal Assessment & Plan Assessment & Plan (1) Shortness of breath: Code(s): R06.02 - Shortness of breath Category: Medical (2) Chest pain: Code(s): R07.9 - Chest pain, unspecified Category: Medical (3) Palpitation: Code(s): R00.2 - Palpitations Category: Medical Plan We will obtain echocardiogram to assess for structural changes, stress test with nuclear imaging to assess for ischemia, and Holter monitor to see if bubble sensation was related to arrhythmia. Patient has history of hip and knee injury and report of small TX in his 20s, we will do myocardial nuclear imaging to assess and possibly switch to pharmacological stress test if needed. Signs and symptoms of angina reviewed. Will follow-up after testing is completed. Emergency care if needed. Orders: Orders CA stress test 06/13/24 R06.02 - Shortness of breath, R07.9 - Chest pain, unspecified NM cardiolite stress test 06/13/24 R06.02 - Shortness of breath, R07.9 - Chest pain, unspecified CA echo transthoracic complete 06/13/24 R00.2 - Palpitations, R06.02 - Shortness of breath, R07.9 - Chest pain, unspecified ECG holter monitor 48 hour 06/13/24 R00.2 - Palpitations Coding Level of Care Code New Pt Level 4 (41171) Diagnoses Shortness of breath R06.02 Chest pain R07.9 Palpitation R00.2
== END 2024-06-13 15:26 | disposition home or self-care (01) ==
PROVIDERS: PCP Pediatrics; Visit Provider Nurse Practitioner
DX: R06.02 Shortness of breath (principal); R07.9 Chest pain, unspecified; R00.2 Palpitations
CPT/HCPCS: 99204

== ENCOUNTER → 2024-06-15 13:04 | Outpatient (REF) | payer MEDICAID, SELFPAY ==
--- NOTE | 2024-06-15 13:08 | HM_ITS ---
* Total monitoring time 2 days. * Underlying rhythm is sinus with an average rate of 76/Min. * Rare supraventricular and ventricular ectopy. * Possible junctional rhythm during sleep hours. * No significant pauses or AV blocks. * Patient markers used in association with sinus rhythm and sinus tachycardia. * Pain described in patient diary correlates with sinus rhythm and sinus tachycardia. MTDD
== END ==
LOC: HO.CARD 13:04
PROVIDERS: PCP Pediatrics; Visit Provider Nurse Practitioner
DX: R00.2 Palpitations (principal)
CPT/HCPCS: 93225

== ENCOUNTER → 2024-06-15 13:08 | Outpatient (BNV) | payer MEDICAID, SELFPAY | PROVIDERS: PCP Pediatrics; Visit Provider Internal Medicine | DX: R00.0 Tachycardia, unspecified (principal) | CPT/HCPCS: 93227 ==

== ENCOUNTER 2024-06-27 13:38 | Outpatient (AMB) | payer MEDICAID, SELFPAY ==
--- NOTE | 2024-06-27 13:39 | A.OFFVIS_ITS ---
Vital Signs 06/27/24 13:42 Height 5 ft 6 in Weight 152 lb 1.903 oz BMI 24.5 BP 134/84 Blood Pressure Location Rt brachial Position Sitting Pulse 75 Pulse Source Pulse Oximeter Intake Visit Reasons: Low TSH/CONFIRMED Intake Note: NEW Patient presents today to establish treatment for Low TSH Ethics Instructor Required: No Accompanied by: Self / Same As Patient Allergies No Known Allergies Allergy (Verified 06/27/24 13:49) HPI Comments Details: 54-year-old male coming in today for initial evaluation of subclinical hyperthyroidism. Lab workup from 06/13/2024 showed low TSH of 0.16 with normal free T4 of 0.96. Was checked because of tremors that have been worsening for a couple of years. Denies any exposure to contrast. No preceding viral illness. 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 Chest discomfort starts in jaw and radiates down. also endorses palpitations. No heat or cold intolerance. gets loose stools but he says this has been going on for 3 months. no diaphoresis. Feels tired. No skin or hair changes. ? Patient denies any difficulty swallowing, pain on swallowing. Feels voice is more raspy. difficulty breathing with walking but not at rest. Patient denies any history of childhood neck radiation. Denies having ever used lithium, amiodarone or biotin supplements. Patient denies any family history of thyroid cancer . Mother has thyroid disease. sister has thyroid disease. Maternal grandmother has some sort of cancer. No fractures recently. Broken humerus at the age of 12 years by slipping from a slide. Review of systems Constitutional: no fevers, chills or weight loss HEENT: no changes in vision Cardiac: Does have chest discomfort Pulmonary: Endorses dyspnea on exertion GI:No abdominal pain, no nausea or vomiting, no anorexia, no blood in stool : Has lower urinary tract symptoms, planning to see a urologist Neurologic: No dizziness, no weakness in extremities MSK: Back pain from herniated disc Physical exam General: sitting comfortably in bed in no acute distress HEENT: normocephalic/atraumatic, EOM intact, moist oral mucosa Neck: supple, symmetrical, palpable 1 cm left-sided thyroid nodule palpated medially , no dorsocervical or supraclavicular fat pads Cardiac: normal heart sounds Pulm: normal breath sounds B/L, no added breath sounds Abd: not distended, no tenderness Extremities: no edema, no signs of myxedema Neuro: AAO x3, Speech: normal, no facial droop, moving all 4 extremities Skin: no rash PFSH Medical History (Updated 06/27/24 @ 14:23 by Virginie Durate MD) Subclinical hyperthyroidism Palpitation Shortness of breath Chest pain Hernia No known health problems Surgical History (Updated 06/27/24 @ 13:51 by TIMO Jeffrey) Hx of hernia repair H/O knee surgery Family History Maternal Grandmother Heart problem Paternal Grandmother Heart problem Social History Alcohol intake: never Patient Tobacco Use Status: Never used Tobacco Results Reviewed Results Reviewed: Laboratory Tests 02/02/24 06/13/24 10:43 09:55 TSH 0.16 L 0.16 L Free T4 0.93 0.96 Assessment & Plan Assessment & Plan (1) Subclinical hyperthyroidism: Code(s): E05.90 - Thyrotoxicosis, unspecified without thyrotoxic crisis or storm Category: Medical Plan: Patient with low TSH of 0.1 size with normal free T4 of 0.96 from June 2024, w ith similar labs from December 2023, who is also reporting significant symptoms with palpitations, tremors. Explained to the patient that he has subclinical hyperthyroidism. We will also check a T3 level given his significant symptoms to assess for possibly T3 toxicosis. He is denying taking any exogenous supplementation. No goiter palpated. He does have a palpable 1 cm left-sided thyroid nodule that I could feel on my exam today. Explained to the patient that most common reason for subclinical hyperthyroidism is toxic thyroid nodules. Other differential includes Graves disease. I explained to him that well criteria for investigation and treatment of subclinical hyperthyroidism is TSH less than 0.1, cardiovascular disease, osteoporosis or age greater than 65 and though he does not fit in that criteria, he has been having significant symptoms plus he is getting evaluated by Cardiology. We will repeat his thyroid function tests along with TSI and total T3 levels. I will also order a thyroid ultrasound. Plan: -ordered thyroid ultrasound -ordered TSH, free T4, total T3, TSI -follow up in 8 weeks Plan I spent 30 minutes in reviewing the record, seeing the patient and documenting in the medical record. Orders: Orders Free T4 (Free Thyroxine) Today E05.90 - Thyrotoxicosis, unspecified without thyrotoxic crisis or storm, R00.2 - Palpitations Thyroid Stimulating Immunoglob Today E05.90 - Thyrotoxicosis, unspecified without thyrotoxic crisis or storm, R00.2 - Palpitations US thyroid Today E05.90 - Thyrotoxicosis, unspecified without thyrotoxic crisis or storm, R00.2 - Palpitations Triiodothyronine T3 Total Today E05.90 - Thyrotoxicosis, unspecified without thyrotoxic crisis or storm, R00.2 - Palpitations Thyroid Stimulating Hormone Today E05.90 - Thyrotoxicosis, unspecified without thyrotoxic crisis or storm, R00.2 - Palpitations Patient Instructions: Do blood work Do thyroid ultrasound Coding Level of Care Code New Pt Level 4 (12162) Diagnoses Subclinical hyperthyroidism E05.90 Time Spent (min) 30
[2024-06-27 13:42] VITALS: BP 134/84; PULSE 75; BMI 24.5
== END 2024-06-27 14:32 | disposition home or self-care (01) ==
PROVIDERS: PCP Pediatrics; Visit Provider Student in an Organized Health Care Education/Training Program
DX: E05.90 Thyrotoxicosis, unspecified without thyrotoxic crisis or storm (principal)
CPT/HCPCS: 99204

== ENCOUNTER → 2024-06-27 13:38 | Outpatient (BNVA) | payer MEDICAID, SELFPAY | PROVIDERS: PCP Pediatrics; Visit Provider Student in an Organized Health Care Education/Training Program | DX: E05.90 Thyrotoxicosis, unspecified without thyrotoxic crisis or storm (principal) | CPT/HCPCS: 99202 ==

== ENCOUNTER 2024-06-28 09:16 | Outpatient (REF) | payer MEDICAID, SELFPAY ==
[2024-06-28 15:22] LABS: Free T4 (Free Thyroxine) 0.84 ng/dL (0.71-1.85); Thyroid Stimulating Hormone 0.36 uIU/mL (0.32-4.0)
[2024-06-29 12:49] LABS: Triiodothyronine T3 Total 104 ng/dL (76-181)
[2024-07-04 15:53] LABS: Thyroid Stimulating Immunoglob <89 % baseline (<140)
== END 2024-06-28 09:17 | disposition home or self-care (01) ==
LOC: HO.CHCLDS 09:16
PROVIDERS: Visit Provider Student in an Organized Health Care Education/Training Program
DX: R00.2 Palpitations (principal); E05.90 Thyrotoxicosis, unspecified without thyrotoxic crisis or storm
CPT/HCPCS: 36415; 84439; 84443; 84445; 84480

== ENCOUNTER 2024-07-04 07:15 | Outpatient (REF) | payer MEDICAID, SELFPAY ==
--- NOTE | ~2024-07-04 | US_ITS ---
EXAMINATION: US THYROID CLINICAL INFORMATION: Low TSH. COMPARISON: None available. TECHNIQUE: Linear transducer grayscale and color Doppler examination with attention to the region of the thyroid. FINDINGS: SIZE: Measurements of the thyroid lobes and nodules are given in sagittal, anteroposterior and transverse dimensions respectively. Right Thyroid Lobe: 5.6 x 1.3 x 2.0 cm, volume 7.6 mL. Parenchyma: The gland echotexture is homogeneous. Thyroid vascularity is increased. Left Thyroid Lobe: 5.0 x 1.2 x 2.2 cm, volume 6.9 mL. Parenchyma: The gland echotexture is homogeneous. Thyroid vascularity is increased. Isthmus: 0.6 cm in maximum AP dimension. No focal thyroid nodule is seen. NODES: No lymphadenopathy is seen in the tissue surrounding the thyroid gland. US/US thyroid IMPRESSION: Normal-sized gland with hypervascularity and no nodule seen. ACR TI-RADS RECOMMENDATION REFERENCE: Ultrasound-guided fine-needle aspiration, followup ultrasound, no further follow up. * TR1 (0 point) and TR2 (2 points): No FNA or follow up. * TR3 (3 points): FNA if more than or equal to 2.5 cm in maximum dimension, followup ultrasound in 1, 3 and 5 years if 1.5 to 2.4 cm in maximum dimension. * TR4 (4-6 points): FNA if more than or equal to 1.5 cm in maximum dimension, followup ultrasound in 1, 2, 3 and 5 years if 1 to 1.4 cm in maximum dimension. * TR5 (more than or equal to 7 points): FNA if more than or equal to 1 cm in maximum dimension, followup ultrasound every year for 5 years if 0.5 to 0.9 cm in maximum dimension. * TR3, TR4 or TR5 nodules that are below the size threshold for followup receive no follow up. Electronically signed by: Ben Arroyo MD 07/12/2024 02:27 PM EDT
== END 2024-07-04 07:16 | disposition home or self-care (01) ==
LOC: HO.US 07:15
PROVIDERS: PCP Pediatrics; Visit Provider Student in an Organized Health Care Education/Training Program
DX: E05.90 Thyrotoxicosis, unspecified without thyrotoxic crisis or storm (principal); R00.2 Palpitations
CPT/HCPCS: 76536

== ENCOUNTER 2024-07-05 07:01 | Outpatient (AMB) | payer MEDICAID, SELFPAY ==
--- NOTE | 2024-07-05 07:35 | MHC.OFFVIS ---
Vital Signs 07/05/24 07:42 Height 5 ft 6 in Weight 151 lb BMI 24.4 BP 148/87 H Blood Pressure Location Rt brachial Position Sitting Pulse 69 Intake Visit Reasons: Unilateral inguinal hernia Intake Note: Patient referred by pcp Dr. Analy Chen for unilateral hernia. Patient c/o: pain while urinating. [employer] Required: No Accompanied by: Self / Same As Patient Allergies No Known Allergies Allergy (Verified 07/05/24 07:52) HPI Comments Details: Patient since her for evaluation of chronic right groin pain. Patient had laparoscopic inguinal hernia repair at [facility] in December. This was preceded in his youth with a pediatric hernia repair of the right groin. Patient also had an open appendectomy. Currently, patient has had persistent right inguinal pain radiating to the scrotum/right testicle. This symptom has been since prior to his laparoscopic hernia repair. He does not feel the original surgery corrected his symptoms. Patient also has associated urologic symptoms in the form of difficulty voiding as well as erectile dysfunction. He is scheduled to see Urology in early August. In the Meantime, patient is tolerating a diet, he is having regular bowel habits. He is not due overly strenuous activities. Patient was seen in the ER here and had a CT scan in December of this year which demonstrated no evidence of any recurrent hernia or any other abdominal wall and intra-abdominal pathology. Chart was reviewed and patient evaluated [facility] Medical History Subclinical hyperthyroidism Palpitation Shortness of breath Chest pain Hernia No known health problems Surgical History Hx of hernia repair H/O knee surgery Family History Maternal Grandmother Heart problem Paternal Grandmother Heart problem Social History Alcohol intake: never Patient Tobacco Use Status: Never used Tobacco Physical Exam Vital Signs: Last Vital Signs Pulse 69 07/05/24 07:42 BP 148/87 H 07/05/24 07:42 BMI result Body Mass Index 24.4 GI Other: Patient was examined both supine and standing with Valsalva. Abdomen is soft. Laparoscopic and open appendectomy and open right inguinal hernia scars well healed. Left groin negative. Genitalia within normal limits. Right groin no evidence of any hernia. Tender to palpation along spermatic cord. Assessment & Plan Assessment & Plan (1) Inguinodynia, right: Code(s): R10.31 - Right lower quadrant pain Category: Surgical Plan Discussed with the patient that at present there was no evidence of recurrent hernia. His symptoms may be related to scar tissue from the laparoscopic hernia repair, perhaps a misplaced Tacker, or totally unrelated to his hernia. He had these same symptoms prior to the hernia repair laparoscopically so precise etiology is unclear. At present, no acute surgical issues to be addressed. Patient is encouraged to see his urologist as scheduled. One option is that if his symptoms persist, he can consider chronic Pain Management evaluation. All questions answered. Patient will otherwise follow-up p.r.n. Coding Level of Care Code New Pt Level 4 (98252) Diagnoses Inguinodynia, right R10.31
[2024-07-05 07:42] VITALS: BP 148/87; PULSE 69; BMI 24.4
== END 2024-07-05 07:43 | disposition home or self-care (01) ==
PROVIDERS: PCP Pediatrics; Visit Provider Surgery
DX: R10.31 Right lower quadrant pain (principal)
CPT/HCPCS: 99203

== ENCOUNTER → 2024-07-05 07:01 | Outpatient (BNVA) | payer MEDICAID, SELFPAY | PROVIDERS: PCP Pediatrics; Visit Provider Surgery | DX: R10.31 Right lower quadrant pain (principal) | CPT/HCPCS: 99202 ==

== ENCOUNTER 2024-07-06 14:16 | Outpatient (REF) | payer MEDICAID, SELFPAY ==
[2024-07-06 17:46] LABS: Appearance Urine Clear; Color Urine Yellow; Glucose Urine UA Negative (Negative); Leukocyte Esterase Urine Negative (Negative); Nitrite Urine Negative (Negative); Specific Gravity - Urine 1.025 (1.005-1.025); Urine Blood Negative (Negative); Urine Ketones Negative (Negative); Urine Protein Negative (Neg-Trace)
[2024-07-06 17:52] LABS: Bacteria Urine None Seen (None Seen); Hyaline Casts Urine 0-2 /LPF (0-2); RBC Urine 0-2 /HPF (0-2); Squamous Epithelial Cell Urine 0-2 /HPF (0-2); WBC Urine 0-5 /HPF (0-5)
== END 2024-07-06 14:17 | disposition home or self-care (01) ==
LOC: HO.CHCLDS 14:16
PROVIDERS: Visit Provider Internal Medicine
DX: R30.0 Dysuria (principal)
CPT/HCPCS: 81001

== ENCOUNTER → 2024-07-19 08:47 | Outpatient (REF) | payer MEDICAID, SELFPAY ==
--- NOTE | ~2024-07-19 | NM_ITS ---
Lexiscan Myocardial perfusion study Indication: Chest pain Technique: The patient was brought in for a Lexiscan perfusion study on 07/19/2024 and was injected 0.4 mg of Lexiscan intravenously. Within a minute of this injection 25 mCi of sestamibi was given intravenously. Images were obtained using the SPECT gamma camera interlaced with the gating device. Images were obtained in supine position. Resting perfusion study was performed on 07/20/2024. Patient was administered 25 mCi of sestamibi intravenously at rest. Images were then obtained in supine position. Total DLP 91 mGy-cm. Images were processed with the software and compared side to side in short axis, horizontal long axis and vertical long axis views. Findings: Raw aquisition reviewed. The stress perfusion study showed diminished tracer uptake along the inferior wall. There is improvement in CT attenuation correction and hence could have components of diaphragmatic attenuation artifact. There is also adjacent subdiaphragmatic tracer uptake. The gated study shows normal LV systolic function with calculated LVEF of 56%. LV cavity is normal in size. The gated study shows diminished contractility in the basal inferior wall. Resting study shows decreased tracer uptake in the basal to mid part of inferior wall. There is some improvement with CT attenuation correction. There is also adjacent subdiaphragmatic tracer uptake. Gating at rest reveals possible diminished contractility in the basal part of inferior wall and LVEF 47%. The findings are consistent with fixed appearing perfusion defect.. Could be related to diaphragmatic attenuation artifact as well as subdiaphragmatic uptake. No clear was no defects. NM/NM cardiolite stress test Impression: 1. Myocardial perfusion imaging study shows no clear evidence of ischemia. Fixed inferior perfusion defect that could be related to diaphragmatic attenuation artifact, subdiaphragmatic uptake but cannot exclude any nontransmural infarct. 2. Gated LVEF is 56% during stress and 47% during rest. Correlate with echocardiogram. 3. Transient ischemic dilatation not present. EKG component of the test reported separately. Electronically signed by: Kyle Marr MD 07/20/2024 03:41 PM EDT
--- NOTE | 2024-07-19 08:49 | CA_ITS ---
Acquisition Time: 2024-07-19 08:48:08 Total Exercise Time: 00:01:08 Test Indications: CP, SOB Medications: SEE H Protocol: RAE Max HR: 120 BPM 71% of Pred: 168 BPM Max BP: 160/100 mmHG Max Work Load: 3.0 METS Exercise stress test exercise 1 min 8 sec of Rae protocol achieving 56% MPHR, with request to stop due to hip pain, with 4/10 stabbing left side chest, without arrythmias, with normotensive response. Test changed to pharmacolgical stress test. Pharmacolgical stress test with Lexiscan injection while walking slowly on the treadmill, with mild to modeate SOB, 4/10 stabbing left side chest at baseline with increase to 9/10 stabbing, without arrhythmias, with normotensive response to injection, with nondiagnosiitc EKGs. Aminophylline 75mg IVP given to reverse Lexiscan. Chest pain and breathing returned to baseline. Patient got diabetic BP of 100. He was shivering from the cold,anxious, along with back and hip pain. Nuclear images pending. Test reviewed with Dr. Batista Referred By: Alma Rosa Cruz Overread By: Alma Rosa Cruz
== END ==
LOC: HO.CARD 08:47
PROVIDERS: PCP Pediatrics; Visit Provider Nurse Practitioner
DX: R07.9 Chest pain, unspecified (principal); R06.02 Shortness of breath; R00.2 Palpitations
CPT/HCPCS: 78452; 93017; A9500; J0280; J2785

== ENCOUNTER → 2024-07-19 08:49 | Outpatient (BNV) | payer MEDICAID, SELFPAY | PROVIDERS: PCP Pediatrics; Visit Provider Nurse Practitioner | DX: R07.9 Chest pain, unspecified (principal) | CPT/HCPCS: 78452; 93016; 93018 ==

== ENCOUNTER 2024-08-01 08:45 | Outpatient (AMB) | payer MEDICAID, SELFPAY ==
--- NOTE | 2024-08-01 08:57 | A.OFFVIS_ITS ---
Intake Visit Reasons: erectile dysfunction/ urinary dribbling Intake Note: New Patient presents for initial visit for erectile dysfunction and urinary dribbling Urology Medications: Tamsulosin Blood Thinner: none PVR: 20ml's Clean In Places Operator Required: No Accompanied by: Self / Same As Patient Allergies No Known Allergies Allergy (Verified 08/01/24 09:36) Medication List - Last Reconciled 08/01/24 by RENO Urban diclofenac sodium 1% topical TID gabapentin 300 mg PO TID lidocaine 5% 1 patch topical DAILY lisinopril 20 mg PO DAILY mirtazapine 7.5 mg PO BEDTIME omeprazole 20 mg PO BID sumatriptan succinate mg PO DAILY tamsulosin mg PO DAILY tramadol 50 mg PO TID PRN HPI Comments Details: Osei is a 54-year-old male patient of . He has a past medical history of subclinical hyper thyroidism, palpitations, and hernia. He presents to the office today as a new patient for ongoing urological issues he has been experiencing. In discussion with the patient today he reports noting issues maintaining his erections, dysuria, and ongoing right groin pain that radiates to his right testicle. He reports symptoms have been present for quite some time. He discusses his history of a laparoscopic inguinal hernia repair at [facility] in December with Dr. Hart. This was preceded in his youth with a pediatric hernia repair of the right groin. Patient also had an open appendectomy. He reports having seeked emergency room care twice for ongoing right groin pain at which time a CT of the abdomen was ordered performed. These results were reviewed with the patient today. Postsurgical changes in the right groin. No evidence of hernia or recurrence fluid collection. Bilateral renal cysts. In assessment of the patient today upon palpation of right groin patient reporting significant pain however no abnormalities palpated. The penis is uncircumcised. No masses and or lumps palpated within the scrotum. We discussed at length potential causes of right groin and scrotal pain he has been experiencing as well as dysuria. In review of patient's chart it appears testosterone was ordered and performed. These results reviewed with the patient today. Testosterone 05/24 544 Free testosterone 05/24 90.3. He denies any previous trauma to the area. We discussed potential causes of dysuria as well as erectile dysfunction. In office urinalysis results reviewed with the patient today microscopic hematuria noted. Discussed further workup to include urine cytology, CT, and office cystoscopy for further assessment evaluation. When asked he does report smoking recreational marijuana daily. He denies any previous workplace chemical exposure. Patient with recent CT that notes the bladder is unremarkable. He discusses noting retrograde ejaculation however we discussed potential retrograde ejaculation with Flomax. PVR 20 mL. He denies incontinence, nocturia, hematuria, dysuria, foul smelling urine, changes to urinary stream, flank pain, fever, and or chills. He does report noting episodes of urinary urgency and frequency. He otherwise offers no other issues or concerns at this time. [facility] Medical History Subclinical hyperthyroidism Palpitation Shortness of breath Chest pain Hernia No known health problems Surgical History Hx of hernia repair H/O knee surgery Family History Maternal Grandmother Heart problem Paternal Grandmother Heart problem Social History Alcohol intake: never Patient Tobacco Use Status: Never used Tobacco Review of Systems Const All systems reviewed & are unremarkable except as noted in HPI and below Physical Exam Const General: cooperative, healthy appearing, comfortable, no acute distress, well developed, alert and awake Orientation/consciousness: patient oriented x3 Limitations: no limitations HEENT Head: Yes normal to inspection, Yes normocephalic and Yes atraumatic Ears: hearing grossly normal bilaterally Eyes General: appearance normal, both eyes and all related structures Neck Neck: Yes normal visual inspection and Yes trachea midline Chest Chest palpation & inspection: normal inspection of the chest Resp Effort & Inspection: normal respiratory effort and able to speak in complete sentences Cardio Rate: regular rate GI Inspection: Yes normal to inspection General: Yes no CVA tenderness Back/Spine/Pelvis Back: no CVA tenderness Skin General skin exam: no rashes or lesions noted Neuro General: patient oriented x3 Extrem General: Yes normal to inspection Psych Appearance: grossly normal and well kempt Mental Status: mental status grossly normal Speech and movement: Normal speech and movement present and Clear speech present Affect: normal affect Attitude: cooperative Thought process: Normal thought process present Thought content: Normal thought content present Insight: Fair insight present (Psych) Judgement: Fair judgement present (Psych) Office Procedures Post Void Residual Post Residual Void Post Void Residual (PVR): 20 [id number] Void Residual by ultrasound Results AMB Urinalysis, Automated UA Leukoctes 0 Lizabeth/uL Last Edit by SupplyBidabbe Daniellerogelio on 08/01/24 09:21 UA Nitrite Last Edit by Pako Lima on 08/01/24 09:21 UA Urobilinogen 0.2 mg/dL Last Edit by LeonAirtaskerabbe Daniellerogelio on 08/01/24 09:21 UA Protein 15 mg/dL Last Edit by LeonAirtaskerabbe Daniellerogelio on 08/01/24 09:21 UA pH 6.0 Last Edit by LeonAirtaskerabbe Daniellerogelio on 08/01/24 09:21 UA Blood 25 Julian/uL Last Edit by InstraGrok Lolisrogelio on 08/01/24 09:21 UA Specific [place] 1.025 Last Edit by SupplyBidabbe Daniellerogelio on 08/01/24 09:21 UA Ketone Negative Last Edit by LeonAirtaskerabbe Daniellerogelio on 08/01/24 09:21 UA Bilirubin 0 mg/dL Last Edit by SupplyBidabbe Daniellerogelio on 08/01/24 09:21 UA Glucose 0 mg/dL Last Edit by SupplyBidabbe Daniellerogelio on 08/01/24 09:21 Results Reviewed Results Reviewed: Laboratory Last Values Urine pH (Auto) 6.0 08/01/24 09:19 Specific [place] (Auto) 1.025 08/01/24 09:19 Urine Protein (Auto) 15 mg/dL 08/01/24 09:19 Glucose (UA)(Auto) 0 mg/dL 08/01/24 09:19 Urine Ketones (Auto) Negative 08/01/24 09:19 Urine Blood (Auto) 25 Julian/uL 08/01/24 09:19 Urine Bilirubin (Auto) 0 mg/dL 08/01/24 09:19 Urine Urobilinogen (Auto) 0.2 mg/dL 08/01/24 09:19 Leukocyte Esterase (Auto) 0 Lizabeth/uL 08/01/24 09:19 Date of Service: 02/09/24 EXAMINATION: CT ABDOMEN AND PELVIS WITH CONTRAST FINDINGS: LUNG BASES: The visualized lung bases are unremarkable. LIVER, GALLBLADDER, AND BILIARY TREE: There are subcentimeter hypodensities within the liver too small to characterize but likely small cysts. There is no intrahepatic biliary duct dilatation. The gallbladder is unremarkable with no evidence of radiopaque gallstones, gallbladder wall thickening, or obvious pericholecystic inflammatory changes. PANCREAS: Unremarkable. SPLEEN: Unremarkable. ADRENAL GLANDS: Unremarkable. KIDNEYS AND URETERS: The kidneys are normal in size, shape, and attenuation. No hydronephrosis, hydroureter, or calculi seen. No perinephric stranding. There is a 3.1 cm cyst midpole right kidney and a 2 cm cyst lower pole left kidney. There is a subcentimeter hypodensity lower pole left kidney also likely a cyst. BLADDER: Unremarkable. GASTROINTESTINAL TRACT: The small and large bowel are unremarkable. The appendix is not seen. There is minimal infiltrative changes in the right lower quadrant extending toward the right groin likely postprocedural. ABDOMINAL WALL: There are surgical clips in the region of the right groin. There is no evidence for hernia recurrence or fluid collection. LYMPH NODES: Normal. VASCULAR: Unremarkable. PELVIC VISCERA: Unremarkable. OSSEOUS STRUCTURES: Unremarkable. IMPRESSION: 1. Postsurgical changes in the right groin. No evidence for hernia recurrence or fluid collection. 2. Bilateral renal cysts. 3. Subcentimeter hypodensities in the liver too small to characterize but likely small cysts. Assessment & Plan Assessment & Plan (1) Inguinodynia, right: Code(s): R10.31 - Right lower quadrant pain Category: Surgical (2) Microscopic hematuria: Code(s): R31.29 - Other microscopic hematuria Category: Medical (3) Marijuana dependence: Code(s): F12.20 - Cannabis dependence, uncomplicated Category: Medical Plan In office urinalysis results reviewed with the patient today; as noted above; will send for urine cytology. Discussed at length potential causes of right groin pain, scrotal pain, lower urinary tract symptoms, and erectile dysfunction. Will obtain right-sided groin ultrasound as well as scrotal ultrasound for further assessment evaluation. Start Cialis 5 mg daily Prescription provided for p.r.n. dosing prior to sexual activity. Discussed, educated, and stressed the importance of limiting/quitting recreational marijuana for urological issues as well as overall health and well- being. Reviewed recent testosterone results with the patient today; as noted above. Reviewed most recent CT results with the patient today; as noted above. Discussed lifestyle modifications to assist with ED. Follow-up in 3 months with imaging to be completed prior; or sooner with any issues, concerns, and or questions. Orders: Orders AMB Urinalysis Automated Today Z13.9 - Encounter for screening, unspecified US scrotum Today N50.82 - Scrotal pain US extremity nonvascular ramirez Today R10.31 - Right lower quadrant pain AMB Post Void Residual by ultrasound Today Z13.9 - Encounter for screening, unspecified Medications: New tadalafil (Cialis) [facility] Group [facility] [address] [id number] 5 mg PO DAILY 30 tabs 3RF 30 days tadalafil (Cialis) Take 1-2 tablets administer approximately 30-60min before sexual activity; do not use more than 2 tablets per 24hrs [facility] Group [facility] [address] [id number] 10 mg PO DAILY PRN 30 tabs 2RF sexual activity 30 days Patient Instructions: The patient had an opportunity to ask questions regarding the treatment plan. All questions were answered. Physical exam, labs, and imaging were discussed and reviewed in detail. As well as risks, benefits, and discussion of treatment choices. No major barriers to understanding were identified. The patient expressed understanding and agreement with the above treatment plan. The patient was made aware they should contact our office by phone for worsening of their current condition, the appearance of new symptoms, or with any questions or concerns. Compliance is encouraged with any medications and follow up testing that is ordered. It is a privilege to be allowed the opportunity to participate in? your urological care.? Again, if you have any questions or concerns If you have any questions or concerns please do not hesitate to contact me. The office is [phone]. This note is constructed using voice recognition software. While every effort has been made to ensure accuracy laundry assistant errors may have been included. Yours sincerely, MARKUS Urban-BC Coding Level of Care Code New Pt Level 4 (29840) Diagnoses Inguinodynia, right R10.31 Microscopic hematuria R31.29 Marijuana dependence F12.20 CPT Codes Post Residual Void - PVR CPT Code: 78405-Yfby Void Residual by ultrasound ([id number])
== END 2024-08-01 09:39 | disposition home or self-care (01) ==
PROVIDERS: PCP Pediatrics; Visit Provider Nurse Practitioner Family
DX: R10.31 Right lower quadrant pain (principal); R31.29 Other microscopic hematuria; F12.20 Cannabis dependence, uncomplicated; Z13.9 Encounter for screening, unspecified
CPT/HCPCS: 99204

== ENCOUNTER 2024-08-01 08:45 | Outpatient (REF) | payer MEDICAID, SELFPAY ==
[2024-08-01 16:33] LABS: Urine Cytology See Pathology rpt
== END 2024-08-01 08:46 | disposition home or self-care (01) ==
LOC: HO.LNP 08:45
PROVIDERS: PCP Pediatrics; Visit Provider Nurse Practitioner Family
DX: R31.29 Other microscopic hematuria (principal); N52.9 Male erectile dysfunction, unspecified; R39.198 Other difficulties with micturition; R30.0 Dysuria; R10.31 Right lower quadrant pain; N50.82 Scrotal pain; F12.20 Cannabis dependence, uncomplicated; Z79.899 Other long term (current) drug therapy
CPT/HCPCS: 51798; 81003; 88112; 99212

== ENCOUNTER 2024-08-22 07:08 | Outpatient (AMB) | payer MEDICAID, SELFPAY ==
--- NOTE | 2024-08-22 07:30 | MHC.OFFVIS ---
Vital Signs 08/22/24 07:31 Height 5 ft 6 in Weight 153 lb 0.013 oz BMI 24.7 BP 118/90 H Blood Pressure Location Lt brachial Position Sitting Pulse 76 Pulse Source Pulse Oximeter Intake Visit Reasons: Low TSH Intake Note: Patient present today for low TSH. [employer] Required: No Accompanied by: Self / Same As Patient Allergies No Known Allergies Allergy (Verified 08/22/24 07:37) Medication List - Last Reconciled 08/22/24 by Virginie Duarte MD diclofenac sodium 1% topical TID gabapentin 300 mg PO TID lidocaine 5% 1 patch topical DAILY lisinopril 20 mg PO DAILY mirtazapine 7.5 mg PO BEDTIME omeprazole 20 mg PO BID sumatriptan succinate mg PO DAILY tadalafil (Cialis) 5 mg PO DAILY 30 days tadalafil (Cialis) 10 mg PO DAILY PRN 30 days tamsulosin mg PO DAILY tramadol 50 mg PO TID PRN HPI Comments Details: 54-year-old male coming in today for follow up of subclinical hyperthyroidism. HPI from prior visit Lab workup from 06/13/2024 showed low TSH of 0.16 with normal free T4 of 0.96. Was checked because of tremors that have been worsening for a couple of years. Denies any exposure to contrast. No preceding viral illness. 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 Chest discomfort starts in jaw and radiates down. also endorses palpitations. Workup reportedly has been unremarkable. No heat or cold intolerance. gets loose stools but he says this has been going on for 3 months. no diaphoresis. Feels tired. No skin or hair changes. ? Patient denies any difficulty swallowing, pain on swallowing. Feels voice is more raspy. difficulty breathing with walking but not at rest. Patient denies any history of childhood neck radiation. Denies having ever used lithium, amiodarone or biotin supplements. Patient denies any family history of thyroid cancer . Mother has thyroid disease. sister has thyroid disease. Maternal grandmother has some sort of cancer. No fractures recently. Broken humerus at the age of 12 years by slipping from a slide. Interval history Repeat lab workup from June 2024 showed all of his labs had normalized with normal TSH of 0.36 with free T4 of 0.84. TSI was undetectable. He also underwent thyroid ultrasound in July 2024, I reviewed the images myself and no nodules were seen, the gland is slightly hypervascular but homogeneous. He continues to have the tremors. He is pending an appointment with the Neurology. Review of systems Constitutional: no fevers, chills or weight loss HEENT: no changes in vision Cardiac: Does have chest discomfort Pulmonary: Endorses dyspnea on exertion GI:No abdominal pain, no nausea or vomiting, no anorexia, no blood in stool : Has lower urinary tract symptoms, planning to see a urologist Neurologic: No dizziness, no weakness in extremities MSK: Back pain from herniated disc Physical exam General: sitting comfortably in bed in no acute distress HEENT: normocephalic/atraumatic, EOM intact, moist oral mucosa Neck: supple, symmetrical, no thyromegaly , no dorsocervical or supraclavicular fat pads Cardiac: normal heart sounds Pulm: normal breath sounds B/L, no added breath sounds Abd: not distended, no tenderness Extremities: no edema, no signs of myxedema, does have a very mild tremor Neuro: AAO x3, Speech: normal, no facial droop, moving all 4 extremities Skin: no rash PFSH Medical History Subclinical hyperthyroidism Palpitation Shortness of breath Chest pain Hernia No known health problems Surgical History Hx of hernia repair H/O knee surgery Family History Maternal Grandmother Heart problem Paternal Grandmother Heart problem Social History Alcohol intake: never Patient Tobacco Use Status: Never used Tobacco Physical Exam Vital Signs: Last Vital Signs Pulse 76 08/22/24 07:31 BP 118/90 H 08/22/24 07:31 BMI result Body Mass Index 24.7 Results Reviewed Results Reviewed: Laboratory Tests 06/13/24 06/28/24 09:55 09:17 TSH 0.16 L 0.36 Free T4 0.96 0.84 Total T3 104 Laboratory Tests 06/28/24 09:17 Thyroid Stim Immunoglob <89 US THYROID 07/25 CLINICAL INFORMATION: Low TSH. COMPARISON: None available. TECHNIQUE: Linear transducer grayscale and color Doppler examination with attention to the region of the thyroid. FINDINGS: SIZE: Measurements of the thyroid lobes and nodules are given in sagittal, anteroposterior and transverse dimensions respectively. Right Thyroid Lobe: 5.6 x 1.3 x 2.0 cm, volume 7.6 mL. Parenchyma: The gland echotexture is homogeneous. Thyroid vascularity is increased. Left Thyroid Lobe: 5.0 x 1.2 x 2.2 cm, volume 6.9 mL. Parenchyma: The gland echotexture is homogeneous. Thyroid vascularity is increased. Isthmus: 0.6 cm in maximum AP dimension. No focal thyroid nodule is seen. NODES: No lymphadenopathy is seen in the tissue surrounding the thyroid gland. US/US thyroid IMPRESSION: Normal-sized gland with hypervascularity and no nodule seen. Assessment & Plan Assessment & Plan (1) Subclinical hyperthyroidism: Code(s): E05.90 - Thyrotoxicosis, unspecified without thyrotoxic crisis or storm Category: Medical Plan: Patient with labs from 06/13/2024 that showed low TSH of 0.16 with normal free T4 of 0.96 , with similar labs from December 2023, who is also reporting significant symptoms with palpitations, tremors. Least labs were consistent with subclinical hyperthyroidism and given significant symptoms of chest discomfort intermittently plus tremors that has been worsening with possible need for treatment needed further evaluation to figure out the etiology. TSI was negative. Also repeat labs from late June 2024 showed normalization of TSH to 0.36. He could have possibly had thyroiditis that has now resolved. He also underwent thyroid ultrasound in July 2024 that did not show any discrete nodules, showed a hypervascular gland however homogeneous in appearance. He is denying taking any exogenous supplementation. No goiter palpated. At this point given resolution of abnormalities on blood work, we will plan to repeat blood work in 5 months with follow up in 6 months' time. If at that time his blood work is still normal we will discharge back to primary care physician. I did food counselor him that if he starts having significantly worsening palpitations, worsening tremors, major weight changes, loose stools, heat intolerance or diaphoresis, he can get labs done sooner as these are signs of hyperthyroidism. Patient verbalized understanding. All questions were answered. Plan: -ordered TSH, free T4, total T3, to be done in 5 months -follow up in 6 months Plan see above Orders: Orders Thyroid Stimulating Hormone 5 Months E0. - Thyrotoxicosis, unspecified without thyrotoxic crisis or storm, R00.2 - Palpitations Free T4 (Free Thyroxine) 5 Months E0. - Thyrotoxicosis, unspecified without thyrotoxic crisis or storm, R00.2 - Palpitations Triiodothyronine T3 Total 5 Months E0. - Thyrotoxicosis, unspecified without thyrotoxic crisis or storm, R00.2 - Palpitations Coding Level of Care Code Est Pt Level 3 (15508) Diagnoses Subclinical hyperthyroidism E0
[2024-08-22 07:31] VITALS: BP 118/90; PULSE 76; BMI 24.7
== END 2024-08-22 07:57 | disposition home or self-care (01) ==
PROVIDERS: PCP Pediatrics; Visit Provider Student in an Organized Health Care Education/Training Program
DX: E05.90 Thyrotoxicosis, unspecified without thyrotoxic crisis or storm (principal)
CPT/HCPCS: 99213

== ENCOUNTER → 2024-08-22 07:08 | Outpatient (BNVA) | payer MEDICAID, SELFPAY | PROVIDERS: PCP Pediatrics; Visit Provider Student in an Organized Health Care Education/Training Program | DX: E05.90 Thyrotoxicosis, unspecified without thyrotoxic crisis or storm (principal); R00.2 Palpitations | CPT/HCPCS: 99212 ==

== ENCOUNTER 2024-09-20 13:44 | Outpatient (AMB) | payer MEDICAID, SELFPAY ==
--- NOTE | 2024-09-20 13:55 | MHC.OFFVIS ---
Vital Signs 09/20/24 13:56 Height 5 ft 6 in Weight 154 lb 5.177 oz BMI 24.9 BP 130/68 Blood Pressure Location Lt brachial Position Sitting Pulse 88 Pulse Source Pulse Oximeter Intake Visit Reasons: 3 mth fu echo/stress/holter Allergies No Known Allergies Allergy (Verified 08/22/24 07:37) Medication List - Last Reconciled 09/20/24 by Kyle Marr MD diclofenac sodium 1% topical TID gabapentin 300 mg PO TID lidocaine 5% 1 patch topical DAILY lisinopril 20 mg PO DAILY mirtazapine 7.5 mg PO BEDTIME omeprazole 20 mg PO BID sumatriptan succinate mg PO DAILY tadalafil (Cialis) 5 mg PO DAILY 30 days tadalafil (Cialis) 10 mg PO DAILY PRN 30 days tamsulosin mg PO DAILY tramadol 50 mg PO TID PRN HPI Comments Details: Osei returns for follow-up. Previously seen by our nurse practitioner. It seems that he has been having some left-sided chest discomfort. He describes a sensation of tightness/pressure that has been ongoing for the last several months. It seems he has been seen in the emergency room and then in our clinic. He still gets the same symptoms. No clear exertional patterns and can happen any time. He went for a stress test and only did just over a minute on the Redd protocol. He was complaining of hip pain and chest pain. Overall, apart from this atypical sounding chest pain no new complaints. No previously diagnosed coronary disease or any other cardiac issues. [facility] Medical History Subclinical hyperthyroidism Palpitation Shortness of breath Chest pain Hernia No known health problems Surgical History Hx of hernia repair H/O knee surgery Family History Maternal Grandmother Heart problem Paternal Grandmother Heart problem Social History Alcohol intake: never Patient Tobacco Use Status: Never used Tobacco Review of Systems Const Denies weakness ENT Reports dizziness Card Reports chest pain, Denies chest pain with activity, Denies syncope, Denies rapid heart rate, Denies pedal edema, Denies edema, Denies leg edema, Denies lightheadedness, Denies palpitations, Reports dyspnea, Denies dyspnea on exertion and Denies orthopnea Resp Denies cough, Reports dyspnea and Denies dyspnea on exertion GI Denies hematochezia and Denies change in stool character Musc Denies abnormal gait, Denies muscle cramps, Denies muscle weakness, Denies numbness, Denies radiating pain into limb and Denies tingling Neuro Denies abnormal gait, Reports dizziness, Denies syncope, Denies numbness, Denies tingling and Denies weakness Endo Denies palpitations Physical Exam Vital Signs: Last Vital Signs Pulse 88 09/20/24 13:56 BP 130/68 09/20/24 13:56 BMI result Body Mass Index 24.9 Const General: comfortable and no acute distress Orientation/consciousness: patient oriented x3 HEENT Other: Unremarkable Head: Yes normal to inspection Neck Neck: Yes normal visual inspection Chest Chest palpation & inspection: normal inspection of the chest Resp Auscultation: clear to auscultation bilaterally Cardio Palpation: normal PMI Heart sounds: S1 normal heart sound present, S2 normal heart sound present, no gallops, no murmurs and no rubs GI Palpation (GI): Soft to palpation Back/Spine/Pelvis Other: unremarkable Skin General skin exam: no rashes or lesions noted Neuro General: patient oriented x3 Extrem General: Yes normal to inspection Psych Mental Status: mental status grossly normal Assessment & Plan Assessment & Plan (1) Chest pain: Code(s): R07.9 - Chest pain, unspecified Category: Medical Plan Cardiac studies reviewed. EKG with underlying sinus rhythm at 95/Min; incomplete right bundle-branch block; leftward axis; normal ME and corrected QT. During the stress test, he did only 1+ minutes on the treadmill and was complaining of hip pain/chest pain. Then converted to pharmacological stress test. There was a fixed inferior defect thought to be artifactual but could not exclude infarct. In the echocardiogram, LVEF is 57%. Moderate septal hypertrophy. No significant valvular findings. Available high sensitivity troponin within normal limits. Overall, atypical sounding but continued chest pain of uncertain etiology with findings on noninvasive testing as above. Suggest proceeding with coronary CTA for definitive diagnosis. Discussed with patient about this and he agrees. Follow-up after the above. Total time spent including review of data, counseling, documentation, coordination of care-31 minutes. Orders: Orders CT Cardiac Coronary Angio Today I25.10 - Atherosclerotic heart disease of [place] coronary artery without angina pectoris Basic Metabolic Panel Today R07.9 - Chest pain, unspecified Coding Level of Care Code Est Pt Level 4 (02263) Diagnoses Chest pain R07.9
[2024-09-20 13:56] VITALS: BP 130/68; PULSE 88; BMI 24.9
== END 2024-09-20 14:18 | disposition home or self-care (01) ==
PROVIDERS: PCP Pediatrics; Visit Provider Internal Medicine
DX: R07.9 Chest pain, unspecified (principal)
CPT/HCPCS: 99214

== ENCOUNTER → 2024-09-20 13:44 | Outpatient (BNVA) | payer MEDICAID, SELFPAY | PROVIDERS: PCP Pediatrics; Visit Provider Internal Medicine | DX: R07.9 Chest pain, unspecified (principal) | CPT/HCPCS: 99212 ==

== ENCOUNTER 2024-09-25 15:35 | Outpatient (REF) | payer MEDICAID, SELFPAY ==
[2024-09-25 18:49] LABS: Anion Gap 12 (12-20); Blood Urea Nitrogen 20 mg/dL (9-16); Calcium 9.3 mg/dL (8.4-10.2); Carbon Dioxide 27 mmol/L (22-29); Chloride 106 mmol/L (96-108); Estimated Glomerular Filt Rate > 60; Glucose Random 96 mg/dL (60-115); Magnesium 2.1 mg/dL (1.6-2.6); Potassium 3.7 mmol/L (3.3-5.1); Sodium 141 mmol/L (135-145)
== END 2024-09-25 15:36 | disposition home or self-care (01) ==
LOC: HO.CHCLDS 15:35
PROVIDERS: Visit Provider Internal Medicine
DX: R25.9 Unspecified abnormal involuntary movements (principal)
CPT/HCPCS: 36415; 80048; 83735

== ENCOUNTER 2024-10-24 08:13 | Outpatient (REF) | payer MEDICAID, SELFPAY | END 2024-10-24 08:14 | disposition home or self-care (01) | LOC: HO.HMGCX 08:13 | PROVIDERS: PCP Internal Medicine; Visit Provider Nurse Practitioner Family | DX: N50.82 Scrotal pain (principal) | CPT/HCPCS: 76870 ==

== ENCOUNTER → 2024-10-24 08:16 | Outpatient (BNV) | payer MEDICAID, SELFPAY | PROVIDERS: PCP Internal Medicine; Visit Provider Radiology Diagnostic Radiology | DX: N50.3 Cyst of epididymis (principal); K46.9 Unspecified abdominal hernia without obstruction or gangrene | CPT/HCPCS: 76870 ==

== ENCOUNTER 2024-10-31 07:59 | Outpatient (AMB) | payer MEDICAID, SELFPAY ==
--- NOTE | 2024-10-31 08:23 | MHC.OFFVIS ---
Intake Visit Reasons: 3m/US/PSA Intake Note: Patient presents today for follow up on: microscopic hematuria and ultrasound results Imaging Completed: 10/24/24 Urology Medications: Tamsulosin, Tadalafil Blood Thinner: none Acidizer Required: No Accompanied by: Self / Same As Patient Allergies No Known Allergies Allergy (Verified 10/31/24 09:06) Medication List - Last Reconciled 10/31/24 by MARKUS Urban- diclofenac sodium 1% topical TID gabapentin 300 mg PO TID lidocaine 5% 1 patch topical DAILY lisinopril 20 mg PO DAILY mirtazapine 7.5 mg PO BEDTIME omeprazole 20 mg PO BID sumatriptan succinate mg PO DAILY tadalafil (Cialis) 5 mg PO DAILY 30 days tadalafil (Cialis) 10 mg PO DAILY PRN 30 days tamsulosin mg PO DAILY tramadol 50 mg PO TID PRN HPI Comments Details: Osei is a 54-year-old male patient of . He has a past medical history of subclinical hyper thyroidism, palpitations, and hernia. He presents to the office today for follow-up. Of note, patient was seen approximately 3 months ago at which time a scrotal ultrasound was ordered for further assessment evaluation. These unofficial results were reviewed with the patient today. Right-sided mildly complex epididymal cyst. Right pelvic lump runs into pelvis/hip from groin. Ultrasound in area of lump shows non complicated/tender mildly hypoechoic mildly vascular tubular structure going into pelvis question vas deferens verses noncomplicated hernia. In discussion with the patient today he continues to report bilateral testicular/scrotal discomfort right side greater than left. He discusses this pain being present for quite some time in discusses his history of a laparoscopic inguinal hernia repair at [facility] in December [address] Hart. This was preceded in his youth with a pediatric hernia repair of the right groin. Patient also had an open appendectomy. He reports having seeked emergency room care twice for ongoing right groin pain at which time a CT of the abdomen was ordered performed. CT 02/22 that notes Postsurgical changes in the right groin. No evidence of hernia or recurrence fluid collection. Bilateral renal cysts. In assessment of the patient today upon palpation of right groin patient reporting significant pain however no abnormalities palpated. The penis is uncircumcised. No masses and or lumps palpated within the scrotum. We discussed at length potential causes of right groin and scrotal pain he has been experiencing as well as dysuria. In review of patient's chart it appears testosterone was ordered and performed. Urological labs are as follows: Testosterone 05/24 544 Free testosterone 05/24 90.3 PSAs: 02/22 1.8, 05/24 1.6 Urine cytology 08/24 Negative for high-grade urothelial carcinoma He denies any previous trauma to the area. In office urinalysis results reviewed with the patient today microscopic hematuria again noted. Discussed further workup to include urine cytology, CT, and office cystoscopy for further assessment evaluation. When asked he does report smoking recreational marijuana daily. He denies any previous workplace chemical exposure. Patient with recent CT that notes the bladder is unremarkable. He discusses noting retrograde ejaculation however we discussed potential retrograde ejaculation with Flomax. He denies incontinence, nocturia,gross/visible hematuria, dysuria, foul smelling urine, changes to urinary stream, flank pain, fever, and or chills. He does report noting episodes of urinary urgency and frequency. During last office visit patient was prescribed low-dose Cialis to assist with maintaining his erections as well as p.r.n. dosing prior to sexual activity. He reports this has been helpful He otherwise offers no other issues or concerns at this time. [facility] Medical History Subclinical hyperthyroidism Palpitation Shortness of breath Chest pain Hernia No known health problems Surgical History Hx of hernia repair H/O knee surgery Family History Maternal Grandmother Heart problem Paternal Grandmother Heart problem Social History Alcohol intake: never Patient Tobacco Use Status: Never used Tobacco Review of Systems Const All systems reviewed & are unremarkable except as noted in HPI and below Physical Exam Const General: cooperative, healthy appearing, comfortable, no acute distress, well developed, alert and awake Orientation/consciousness: patient oriented x3 Limitations: no limitations HEENT Head: Yes normal to inspection, Yes normocephalic and Yes atraumatic Ears: hearing grossly normal bilaterally Eyes General: appearance normal, both eyes and all related structures Neck Neck: Yes normal visual inspection and Yes trachea midline Chest Chest palpation & inspection: normal inspection of the chest Resp Effort & Inspection: normal respiratory effort and able to speak in complete sentences Cardio Rate: regular rate GI Inspection: Yes normal to inspection General: Yes no CVA tenderness Back/Spine/Pelvis Back: no CVA tenderness Skin General skin exam: no rashes or lesions noted Neuro General: patient oriented x3 Extrem General: Yes normal to inspection Psych Appearance: grossly normal and well kempt Mental Status: mental status grossly normal Speech and movement: Normal speech and movement present and Clear speech present Affect: normal affect Attitude: cooperative Thought process: Normal thought process present Thought content: Normal thought content present Insight: Fair insight present (Psych) Judgement: Fair judgement present (Psych) Results AMB Urinalysis, Automated UA Leukoctes 0 Lizabeth/uL Last Edit by [employer] on 10/31/24 08:57 UA Nitrite Last Edit by [employer] on 10/31/24 08:57 UA Urobilinogen 0.2 mg/dL Last Edit by [employer] on 10/31/24 08:57 UA Protein 0 mg/dL Last Edit by [employer] on 10/31/24 08:57 UA pH 7.0 Last Edit by [employer] on 10/31/24 08:57 UA Blood 0 Julian/uL Last Edit by [employer] on 10/31/24 08:57 UA Specific [place] 1.010 Last Edit by [employer] on 10/31/24 08:57 UA Ketone Last Edit by [employer] on 10/31/24 08:57 UA Bilirubin 0 mg/dL Last Edit by [employer] on 10/31/24 08:57 UA Glucose 0 mg/dL Last Edit by [employer] on 10/31/24 08:57 Results Reviewed Results Reviewed: Laboratory Last Values Urine pH (Auto) 7.0 10/31/24 08:54 Specific [place] (Auto) 1.010 10/31/24 08:54 Urine Protein (Auto) 0 mg/dL 10/31/24 08:54 Glucose (UA)(Auto) 0 mg/dL 10/31/24 08:54 Urine Blood (Auto) 0 Julian/uL 10/31/24 08:54 Urine Bilirubin (Auto) 0 mg/dL 10/31/24 08:54 Urine Urobilinogen (Auto) 0.2 mg/dL 10/31/24 08:54 Leukocyte Esterase (Auto) 0 Lizabeth/uL 10/31/24 08:54 Assessment & Plan Assessment & Plan (1) Inguinodynia, right: Code(s): R10.31 - Right lower quadrant pain Category: Surgical (2) Microscopic hematuria: Code(s): R31.29 - Other microscopic hematuria Category: Medical (3) Marijuana dependence: Code(s): F12.20 - Cannabis dependence, uncomplicated Category: Medical Plan In office urinalysis results reviewed with the patient today; as noted above. Previous urine cytology results reviewed with the patient today; as noted above. We discussed at length potential causes of microscopic hematuria as well as further workup to include in office cystoscopy for further assessment evaluation however patient declines at this time and like to continue with surveillance monitoring. We discussed recent scrotal ultrasound results. Continue Cialis 5 mg daily as prescribed; refill provided on daily dosing as well as p.r.n. dosing. Discussed, educated, and stressed the importance of limiting/quitting recreational marijuana for urological issues as well as overall health and well-being. Discussed lifestyle modifications to assist with ED. Follow-up next available appointment with Dr. Dumont to further assess treatment options of scrotal discomfort; or sooner with any issues, concerns, and or questions. Orders: Orders AMB Urinalysis Automated 10/31/24 Z13.9 - Encounter for screening, unspecified Medications: Changed From tadalafil (Cialis) [facility] [employer] [facility]33 [id number] 5 mg PO DAILY 30 days 30 tabs 3RF To tadalafil (Cialis) [employer] N [employer] [facility] [address] [id number] 5 mg PO DAILY 90 days 90 tabs 0RF Patient Instructions: The patient had an opportunity to ask questions regarding the treatment plan. All questions were answered. Physical exam, labs, and imaging were discussed and reviewed in detail. As well as risks, benefits, and discussion of treatment choices. No major barriers to understanding were identified. The patient expressed understanding and agreement with the above treatment plan. The patient was made aware they should contact our office by phone for worsening of their current condition, the appearance of new symptoms, or with any questions or concerns. Compliance is encouraged with any medications and follow up testing that is ordered. It is a privilege to be allowed the opportunity to participate in? your urological care.? Again, if you have any questions or concerns If you have any questions or concerns please do not hesitate to contact me. The office is [phone]. This note is constructed using voice recognition software. While every effort has been made to ensure accuracy state federal relations deputy director errors may have been included. Yours sincerely, RENO Urban Coding Level of Care Code Est Pt Level 3 (98992) Diagnoses Inguinodynia, right R10.31 Microscopic hematuria R31.29 Marijuana dependence F12.20
== END 2024-10-31 09:25 | disposition home or self-care (01) ==
PROVIDERS: PCP Pediatrics; Visit Provider Nurse Practitioner Family
DX: Z13.9 Encounter for screening, unspecified (principal)
CPT/HCPCS: 99213

== ENCOUNTER → 2024-10-31 07:59 | Outpatient (BNVA) | payer MEDICAID, SELFPAY | PROVIDERS: PCP Pediatrics; Visit Provider Nurse Practitioner Family | DX: R31.29 Other microscopic hematuria (principal); R10.31 Right lower quadrant pain; F12.20 Cannabis dependence, uncomplicated | CPT/HCPCS: 81003; 99212 ==

== ENCOUNTER 2024-11-29 12:58 | Outpatient (AMB) | payer MEDICAID, SELFPAY ==
--- NOTE | 2024-11-29 13:01 | A.OFFVIS_ITS ---
Intake Visit Reasons: scrotal discomfort- Gayatri request Intake Note: Patient presents today for scrotal discomfort Urology Medications: Tamsulosin, Tadalafil Blood Thinner: none Petal Shaper Hand Required: No Accompanied by: Self / Same As Patient Allergies No Known Allergies Allergy (Verified 11/29/24 13:25) HPI Comments Details: Osei is a pleasant male. He is a patient of . He is seen for the following urologic conditions - right groin discomfort, testicular discomfort, left groin discomfort Patient reports workplace injury with left labrum damage. Walks with cane. Has pain in right groin and often pain runs down into right testicle Emergence of pain was associated with prior workplace injury per patient report Previously was evaluated for emergent hernia at [facility] and underwent laparoscopic inguinal repair right side 01/19/[address] Christie On exam there does appear to be some mild ballooning of skin over right inguinal area. On examination he has marked tenderness at rectus insertion site to symphysis pubis both the left and the right. The right vas deferens is also tender to palpation. Discussed entity known as inguinal disruption. This refers to micro trauma to structures of the inguinal canal such as the rectus abdominis on the medial wall and conjoined tendon. Disruption may well be secondary to hip injuries. Inguinal hernia repair is known for injury to ilioinguinal nerve and may result in tender vas deferens. We did discuss testicle denervation which is quite successful for managing persistent testicular pain Based on the tendinous and rectus incision sites recommended for trial of local anesthetic steroid injection. These were performed in office today. We will review effect in 2-3 days via my nurse Office procedure - Rectus Insertion Injection bilateral The inguinal ring was palpated with the left hand. Pain was elicited on medial aspect of the inguinal ring at the insertion of the rectus tendon into the symphysis pubis. Alcohol prep was applied. A 22 gauge 3.5 in Chiba needle was advanced and under tactile guidance the tip was placed through rectus tendon insertion. Negative aspiration was performed. A fan-like distribution for injection of a total of 10 cc was made. The injection consisted of 10 cc of 1% bupivacaine and 40 mg Kenalog. The injection was well tolerated with only transient pain. Left insertion managed initially, 2nd injection into right insertion CPT 17321 ICD M77.8 Enthesopathy [facility] Medical History Subclinical hyperthyroidism Palpitation Shortness of breath Chest pain Hernia No known health problems Surgical History Hx of hernia repair H/O knee surgery Family History Maternal Grandmother Heart problem Paternal Grandmother Heart problem Social History Alcohol intake: never Patient Tobacco Use Status: Never used Tobacco Review of Systems Const Denies chills and Denies fever(s) Card Reports no additional complaints and Denies syncope Resp Denies cough GI Denies abdominal pain and Denies heartburn Reports as per HPI and Denies change in libido Neuro Denies syncope Psych Denies change in libido Endo Denies change in libido Physical Exam Const General: cooperative, healthy appearing, comfortable and no acute distress Orientation/consciousness: patient oriented x3 HEENT Face and sinus: Yes normal facial exam Mouth: moist mucous membranes Neck Neck: Yes normal visual inspection, Yes full ROM and Yes trachea midline Chest Chest palpation & inspection: normal inspection of the chest Resp Effort & Inspection: normal respiratory effort, able to speak in complete sentences and no respiratory distress GI Inspection: Yes normal to inspection Back/Spine/Pelvis Cervical Spine: normal cervical lordosis Thoracic/Lumbar Spine: thoracic and lumbar spine normal to inspection Skin General skin exam: no rashes or lesions noted Neuro General: patient oriented x3, gait normal, tone normal and moves all extremities Extrem General: Yes normal to inspection and Yes capillary refill normal Assessment & Plan Assessment & Plan (1) Inguinal bulge: Code(s): R19.09 - Other intra-abdominal and pelvic swelling, mass and lump Category: Medical (2) Inguinal pain of both sides: Code(s): R10.31 - Right lower quadrant pain; R10.32 - Left lower quadrant pain Category: Medical Plan Nurse follow-up Patient Instructions: Imaging studies, laboratory and physical exam results were discussed and reviewed in detail. No major barriers to patient understanding were identified. An opportunity to ask questions regarding the treatment plan was provided. All questions were answered. The patient expressed understanding and agreement with the above treatment plan. The patient is aware they should contact our office by phone for worsening of their current condition or the appearance of new urologic symptoms. Compliance is encouraged with any medications and followup testing that is ordered. It is a privilege to participate in the urologic care of your patient. If you have any questions or concerns regarding treatment for the above conditions, or other urologic issues, please do not hesitate to contact me. The office telephone contact is [phone]. This note is constructed using voice recognition software. While every effort francis s been made to ensure accuracy superintendent seed mill errors may have been included. Yours sincerely, Dr Lew Dumont MD, [facility] - Urology Providers of Expert, Compassionate Care for the Genitourinary System Coding Level of Care Code Est Pt Level 4 (37176) Diagnoses Inguinal bulge R19.09 Inguinal pain of both sides R10.31; R10.32
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
--- OUTSIDE RECORDS SUMMARY | 2024-11-29 15:04 | XMS_ITS | Encounter Summary ---
Author Organization [employer] Address [address] [facility] [address], [place] [address] Care Team Providers Care Bakery Helper Name Role Phone Analy Chen MD Primary Care Provider [phone] Nai Menendez MD Primary Care Provider [phone] Reason for Referral * Consultation (Routine) - Closed Specialty Diagnoses / Procedures Referred By Contac t Referred To Contact Cardiology Diagnoses Primary hypertension Other chest pain Nai Menendez MD [address] [place] [phone] Phone: tel: fax: Stephan Batista MD [address] [place] [phone] Phone: tel: fax: Referral ID Status Reason Start Date Expiration Date V isits Requested Visits Authorized [id number] Closed Specialty Services Required 04/17/2024 04/17/2025 1 1 Encounter Details Date Type Department Care Team (Late st Contact Info) Description 04/17/2024 Orders Only C [facility] [address] [place] [address] [phone] Nai Menendez MD [address] [place] [phone] Primary hypertension (Primary Dx); Other chest pain Social History Tobacco Use Types Packs/Day Years Used Date Smoking Tobacco: Never Smokeless Tobacco: Never Alcohol Use Standard Drinks/Week Comments Never 0 [...] Orientation Straight 01/19/2024 10 :51 AM EDT documented as of this encounter Plan of Treatment Upcoming Encounters Date Type Department Care Team (Late st Contact Info) Description 11/30/2024 1:45 PM EST Office Visit [facility] [address] [place] [address] Nai Menendez MD [address] [place] [address] Scheduled Referrals Name Type Priority Associated Diagnoses Order Schedule Referral to Cardiology Outpatient Referral Routine Primary hypertension Other chest pain Expected: 04/17/2024 (Approximate), Expires: 04/17/2025 documented as of this encounter Visit Diagnoses Diagnosis Primary hypertension- Primary Unspecified essential hypertension Other chest pain documented in this encounter Additional Health Concerns Assessment Noted Time PHQ-9 Depression Total Score: 4 02/02/20 24 9:37 AM EDT documented as of this encounter Care Teams Bakery Helper Relationship Specialty Start Date End Date Analy Chen MD [address] [place] [address] PCP - General Internal Medicine 02/02/24 09/24/24 Nai Menendez MD [address] [place] [address] PCP - General Internal Medicine 09/25/24 documented as of this encounter
--- OUTSIDE RECORDS SUMMARY | 2024-11-29 15:04 | XMS_ITS | Encounter Summary ---
Author Organization [employer] Address [address] [facility] 7t [place] [address] Care Team Providers Care Supervisor Model Making Name Role Phone Analy Chen MD Primary Care Provider [phone] Nai Menendez MD Primary Care Provider [phone] Encounter Details Date Type Department Care Team ([facility] st Contact Info) Description 06/14/2024 Orders Only [facility] MED & PEDS [address] [place], [place] [id number] Nai Menendez MD [address] [place] [address] Tremor (Primary Dx); Low TSH level Social History Tobacco Use Types Packs/Day Years [...] Description 11/30/2024 1:45 PM EST Office Visit [facility] MED & PEDS [address] [place] [address] Nai Menendez MD [address] [place] [address] documented as of this encounter Visit Diagnoses Diagnosis Tremor- Primary Abnormal involuntary movements Low TSH level documented in this encounter Additional Health Concerns Assessment Noted Time PHQ-9 Depression Total Score: 4 02/02/20 24 9:37 AM EDT documented as of this encounter Care Teams Supervisor Model Making Relationship Specialty Start Date End Date Analy Chen MD [address] [place] [address] PCP - General Internal Medicine 02/02/24 09/24/24 Nai Menendez MD [address] [place] [address] PCP - General Internal Medicine 09/25/24 documented as of this encounter
--- OUTSIDE RECORDS SUMMARY | 2024-11-29 15:04 | XMS_ITS | Encounter Summary ---
Author Organization [employer] Address [address] [facility] [address] 7[address] [place] [address] Care Team Providers Care Career Services Director Name Role Phone Nai Menendez MD Primary Care Provider [phone] Encounter Details Date Type Department Care Team (Latest Contact Info) Description 11/24/2024 Travel Social History Tobacco Use Types Packs/Day Years [...] Description 11/30/2024 1:45 PM EST Office Visit [facility] MED & PEDS [address] [place] [address] Nai Menendez MD [address] [place] [address] documented as of this encounter Visit Diagnoses Not on filedocumented in this encounter Additional Health Concerns Assessment Noted Time PHQ-9 Depression Total Score: 4 02/02/20 24 9:37 AM EDT documented as of this encounter Care Teams Career Services Director Relationship Specialty Start Date End Date Nai Menendez MD [address] [place] [address] PCP - General Internal Medicine 09/25/24 documented as of this encounter
--- OUTSIDE RECORDS SUMMARY | 2024-11-29 15:04 | XMS_ITS | Encounter Summary ---
Author Organization [employer] Address [address] [facility] 7t [place] [address] Care Team Providers Care Pattern Generator Operator Name Role Phone Analy Chen MD Primary Care Provider [phone] Nai Menendez MD Primary Care Provider [phone] Reason for Visit * Reason Onset Date Comments ER Follow-up 02/11/2024 Encounter Details Date Type Department Care Team (Late st Contact Info) Description 02/11/2024 Telephone [facility] [address] [place] [address] Analy Chen MD [address] [place], [place] [phone] ER Follow-up Social History Tobacco Use Types Packs/Day Years Used Date Smoking Tobacco: Never Smokeless Tobacco: Never Alcohol Use Standard Drinks/Week Comments Not Currently 0 (1 standard drink = 0.6 oz pur e alcohol) Depression Answer Date Recorded Patient Health Questionnaire-9 Score 4 02/02/2024 Patient Health Questionnaire-9 Score 4 02/02/2024 Last PHQ-9: Questionnaire Data Not on file 0 02/02/2024 Housing Stability Answer Date Recorded What is your housing situation today? I have [place] [employer] [address] you li [...] AM EDT documented as of this encounter Miscellaneous Notes * Telephone Encounter - Wing Marisol RN - 02/11/2024 4:21 PM EDT Tc to pt regarding ED visit on 02/08. Pt states that ED told him there is no recurring hernia and that rest and time will make it feel better. Pt reports pain is not getting better or worse and is using hot pads as recommended by ED along with oxycodone prescribed by ED. Pt reports pain on right testicle to be a 10/10. Scheduled appt with PCP as pt requested to be seen by his PCP specifically for 03/01 at 9:15 am. Advised pt to go back to ED if pain worsens or does not improve. Pt verbalized understanding and agreement with plan. Printed out ED note, will have medical records scan. * Telephone Encounter - Yassine Gonzales - 02/11/2024 8:31 AM EDT Patient calling to report ED visit on : Date: 02/08 Hospital: [facility] Seen for: Skin Lump had surgery on 01/26 for hernia and still had pain with a lump Patient advised will forward to team nurse for follow up documented in this encounter Plan of Treatment Upcoming Encounters Date Type Department Care Team (Late st Contact Info) Description 11/30/2024 1:45 PM EST Office Visit [facility] MED & PEDS [address] [place] [address] Nai Menendez MD [address] [place] [address] documented as of this encounter Visit Diagnoses Not on filedocumented in this encounter Additional Health Concerns Assessment Noted Time PHQ-9 Depression Total Score: 4 02/02/20 24 9:37 AM EDT documented as of this encounter Care Teams Pattern Generator Operator Relationship Specialty Start Date End Date Analy Chen MD [address] [place] [address] PCP - General Internal Medicine 02/02/24 09/24/24 Nai Menendez MD [address] [place] [address] PCP - General Internal Medicine 09/25/24 documented as of this encounter
--- OUTSIDE RECORDS SUMMARY | 2024-11-29 15:04 | XMS_ITS | Clinical Summary ---
Author Organization [facility] Address [address] [place] [address] Care Team Providers Care Merchandise Flow Team Leader Name Role Phone Unavailable Primary Care Provider Unavailabl e Source Comments PLEASE NOTE, if this patient is a minor, it may be UNLAWFUL to discuss sensitive information that is contained in these records (such as FAMILY PLANNING, MENTAL HEALTH or SUBSTANCE ABUSE) with the minor patient's parent or other person without the patient's specific authorization.[facility] Immunizations Name Administration Dates Next Due PFIZER COVID VACCINE, PURPLE CAP, 12+ 04/03/2021 ,03/06/2021 Social History Tobacco Use Types Packs/Day Years Used Date Smoking Tobacco: Never Assessed Social Connections Answer Date Recorded Social Connections and Isolation 0 03/06/2021 Financial Resource Strain Answer Date R ecorded Financial Resource Strain 0 2020 Stress Answer Date Recorded Stress 0 03/06/2021 Physical Activity Answer Date Recorded Physical Activity 0 03/06/2021 Food Insecurity Answer Date Recorded Food 0 03/06/2021 Transportation Needs Answer Date Record ed Transportation 0 03/06/2021 Housing Stability Answer Date Recorded Housing 0 03/06/2021 Safety and Environment Answer Date Hernando rded Safety 0 03/06/2021 Utilities Answer Date Recorded Utilities 0 03/06/2021 Employment Answer Date Recorded Employment 0 03/06/2021 Sex and Gender Information Value Date Recorded Sex Assigned at Not on file Legal Sex Male 1:55 PM PDT Gender Identity Not on file Sexual Orientation Not on file Plan of Treatment Health Maintenance Due Date Last Done Comments Diabetes Screening 1972 Hepatitis C Screening 1972 Lipid Screening 1972 Tobacco Screening 1972 HIV Screening 01/23/1987 Hypertension Screening (#1) 01/23/1990 Imm-DTaP/Tdap/Td (1 - Tdap) 01/23/1991 Imm-Hepatitis B (1 of 3 - 19 + 3-dose series) 01/23/1991 CT Colonography 01/23/2017 Colonoscopy 01/23/2017 Colorectal Cancer Screening 01/23/2017 FIT/gFOBT 01/23/2017 Fecal DNA 01/23/2017 Flexible Sigmoidoscopy 01/23/2017 Imm-Zoster, Recombinant (1 of 2) 01/23/2022 [id number] (3 - season) 2024 021, 03/06/2021 Imm-Influenza (#1) 2024 Alcohol and Drug Screen 11/01/2024 Depression Annual Screen 11/01/2024 Insurance COVID19 [facility] UNINSURED TESTING AND TREATMENT FUND
--- OUTSIDE RECORDS SUMMARY | 2024-11-29 15:04 | XMS_ITS | Encounter Summary ---
Author Organization [employer] Address [address] [facility] 7 [place] [address] Care Team Providers Care Electronic Design Engineer Name Role Phone Nai Menendez MD Primary Care Provider [phone] Reason for Visit * Reason Onset Date Comments PT-1 10/04/2024 Encounter Details Date Type Department Care Team (Late st Contact Info) Description 10/04/2024 Telephone [facility] MEDICINE [address] [place] [address] Nai Menendez MD [address] [place] [address] PT-1 Social History Tobacco Use Types Packs/Day Years [...] encounter Miscellaneous Notes * Telephone Encounter - Shana Abrams - 10/04/2024 10:13 AM EST Patient calling requesting PT1 Home Address verified: Y/N: Yes Provider name or facility name: [facility] Facility Address: [address] [facility] Escort needed: Y/N: Yes Do you have a wheelchair: Y/N: No If yes- Manual or electric: Visits: 3 times a month Provider name or facility name: [facility] Facility Address: [address] [place] [address] Escort needed: Y/N: No Do you have a wheelchair: Y/N: No If yes- Manual or electric: Provider name or facility name: [facility] ( daily building ) Facility Address: [address] [place] [address] Escort needed: Y/N: No Do you have a wheelchair: Y/N: No If yes- Manual or electric: Visits: 3 times a month Date: 12/06/23 Time:9:30am Provider name or facility name: [facility] Facility Address: [address] [place] [address] Escort needed: Y/N: No Do you have a wheelchair: Y/N: No If yes- Manual or electric: Visits: 3 times a month documented in this encounter Plan of Treatment Upcoming Encounters Date Type Department Care Team ([facility] st Contact Info) Description 11/30/2024 1:45 PM EST Office Visit [facility] CH[facility] MED & PEDS [address] [place] [address] Nai Menendez MD [address] [place] [address] documented as of this encounter Visit Diagnoses Not on filedocumented in this encounter Additional Health Concerns Assessment Noted Time PHQ-9 Depression Total Score: 4 02/02/20 24 9:37 AM EDT documented as of this encounter Care Teams Electronic Design Engineer Relationship Specialty Start Date End Date Nai Menendez MD [address] [place] [address] PCP - General Internal Medicine 09/25/24 documented as of this encounter
--- OUTSIDE RECORDS SUMMARY | 2024-11-29 15:04 | XMS_ITS | Encounter Summary ---
Author Organization [employer] Address [address] [facility] 7 [place] [address] Care Team Providers Care Brinell Tester Name Role Phone Nai Menendez MD Primary Care Provider [phone] Reason for Visit * Reason Onset Date Comments Pt1 10/10/2024 Encounter Details Date Type Department Care Team ([facility] Contact Info) Description 10/10/2024 Telephone [facility] CHC MED & PEDS [address] [place] [address] Nai Menendez MD [address] [place] [address] Pt1 Social History Tobacco Use Types Packs/Day Years [...] encounter Miscellaneous Notes * Telephone Encounter - Michelle Garcia - 10/10/2024 1:02 PM EST Patient calling requesting PT1 Home Address verified: Y/N: Yes Provider name or facility name: [facility] Facility Address: [address] [place] [address] [place] [address] Escort needed: Y/N: No Do you have a wheelchair: Y/N: No If yes- Manual or electric: n/a Visits: 2-3 times a month for 6 months documented in this encounter Plan of Treatment Upcoming Encounters Date Type Department Care Team ([facility] st Contact Info) Description 11/30/2024 1:45 PM EST Office Visit [facility] CH[facility] MED & PEDS [address] [place] [address] Nai Menendez MD [address] [place] [address] documented as of this encounter Visit Diagnoses Not on filedocumented in this encounter Additional Health Concerns Assessment Noted Time PHQ-9 Depression Total Score: 4 02/02/20 24 9:37 AM EDT documented as of this encounter Care Teams Brinell Tester Relationship Specialty Start Date End Date Nai Menendez MD [address] [place] [address] PCP - General Internal Medicine 09/25/24 documented as of this encounter
--- OUTSIDE RECORDS SUMMARY | 2024-11-29 15:04 | XMS_ITS | Clinical Summary ---
Author Organization [facility] Address [address] [place] [address] Care Team Providers Care Offset Machine Operator Name Role Phone Unavailable Primary Care Provider Unavailabl e Social History Tobacco Use Types Packs/Day Years Used Date Smoking Tobacco: Never Assessed Sex and Gender Information Value Date Recorded Sex Assigned at Not on file Gender Identity Not on file Sexual Orientation Not on file Plan of Treatment Health Maintenance Due Date Last Done Comments DTaP,Tdap,and Td Vaccines (1 - Tdap) 01/23/1991 Hepatitis B Vaccines (1 of 3 - 19+ 3-dose series) 01/23/1991 Zoster Vaccines (1 of 2) 01/23/2022 COVID-19 Vaccine ( - 2023-2 5 season) 2024 Influenza Vaccine (#1) 2024 Cholesterol Screening (Lipid Panel) 08/09/2024 Colorectal Cancer Screening: Colonoscopy 08/09/2024 Depression Screening 08/09/2024 HIV Screening 08/09/2024 Hepatitis C Screening 08/09/2024 Social Influencers of Health Screening 08/09/2024 HIB Vaccines Aged Out No longer eligi ble based on patient's age to complete this topic HPV Vaccines Aged Out No longer eligi ble based on patient's age to complete this topic Hepatitis A Vaccines Aged Out No long er eligible based on patient's age to complete this topic IPV Vaccines Aged Out No longer eligi ble based on patient's age to complete this topic MMR Vaccines Aged Out No longer eligi ble based on patient's age to complete this topic Meningococcal ACWY Vaccine Aged Out N o longer eligible based on patient's age to complete this topic Pneumococcal Vaccine: Pediat rics (0 to 5 Years) and At-Risk Patients (6 to 64 Years) Aged Out No longer eligible b ased on patient's age to complete this topic RSV Immunization Patients Un jon 20 months Aged Out No longer eligible b ased on patient's age to complete this topic Varicella Vaccines Aged Out No longer eligible based on patient's age to complete this topic
--- OUTSIDE RECORDS SUMMARY | 2024-11-29 15:04 | XMS_ITS | Encounter Summary ---
Author Organization [employer] Address [address] [facility] [address] [place] [address] Care Team Providers Care Travel Ticketing Reviewer Name Role Phone Nai Menendez MD Primary Care Provider [phone] Reason for Visit * Reason Onset Date Comments recall appt 11/23/2024 Pt needs appt Encounter Details Date Type Department Care Team ([facility] st Contact Info) Description 11/23/2024 Telephone [facility] CHC MED & PEDS [address] [place], [place] [phone] Nai Menendez MD [address] [place] [address] recall appt (Pt needs appt) Social History Tobacco Use Types Packs/Day Years [...] encounter Miscellaneous Notes * Telephone Encounter - Dorota Wallace MA - 11/23/2024 9:35 AM EST Called pt to schedule appt wit dr. Menendez f/u htn LVM ok for call center to schedule appt next available documented in this encounter Plan of Treatment Upcoming Encounters Date Type Department Care Team (Late st Contact Info) Description 11/30/2024 1:45 PM EST Office Visit [facility] CH[facility] MED & PEDS [address] [place] [address] Nai Menendez MD [address] [place] [address] documented as of this encounter Visit Diagnoses Not on filedocumented in this encounter Additional Health Concerns Assessment Noted Time PHQ-9 Depression Total Score: 4 02/02/20 9:37 AM EDT documented as of this encounter Care Teams Travel Ticketing Reviewer Relationship Specialty Start Date End Date Nai Menendez MD [address] [place] [address] PCP - General Internal Medicine 09/25/24 documented as of this encounter
--- OUTSIDE RECORDS SUMMARY | 2024-11-29 15:04 | XMS_ITS | Encounter Summary ---
Author Organization [employer] Address [address] [facility] [address] [place] [address] Care Team Providers Care Education Nurse Name Role Phone Analy Chen MD Primary Care Provider [phone] Nai Menendez MD Primary Care Provider [phone] Reason for Visit * Reason Onset Date Comments Nurse Triage 09/12/2024 Encounter Details Date Type Department Care Team (Late st Contact Info) Description 09/12/2024 Telephone [facility] MEDICINE [address] [place] [address] Analy Chen MD [address] [place] [address] Nurse Triage Social History Tobacco Use Types Packs/Day Years [...] encounter Miscellaneous Notes * Telephone Encounter - Maritza Chandra RN - 09/12/2024 9:25 AM EST Triage call Pt reports dizziness and restricted movement of neck which has been happening for months. Pt denies injury. Pt reports was taking a shower and felt a pain shoot up spine and then the neckpain started. Pt is at Physical Therapy at time of call. Pt reports unable to turn head from left to right and vice versa. Pt can try to touch chin to chest but, when lifting head back up has much pain. Pt is neg for fever. Pt reports dizziness comes and goes. Pt reports difficulty with balance as well. Pt reports drinking adequate liquids. Pt is taking motrin for pain which only helps a little.Pt is also using a heating pad on neck at rest with some relief. Pt does have transfer Pt apt 09/25/24 but, requests to be seen for this neck pain as soon as possible. Pt prefers male providers. ASK apt with Dr. Lee. 1115pm 09/12/24. Pt agrees with this disposition. Insurance is verified as active prior to booking. Protocol Used: Neck Pain or Stiffness (Adult) Protocol-Based Disposition: See in Office or Video Visit Today Video visit not offered Positive Triage Question: * Patient wants to be seen * All higher-acuity triage questions were negative Care Advice Discussed: * Reassurance and Education - Neck Pain or Stiffness * Pain Medicines * Pain Medicines - Extra Notes and Warnings * Sleep * Activity * Stretching Exercises * Reasons To Call Back - Moderate pain (such as interferes with normal activities) lasts over 3 days - Pain lasts over 2 weeks - Pain begins to shoot into the arms - Numbness or weakness occurs in your arms or legs - You become worse * Telephone Encounter - Jules Mcqueen - 09/12/2024 8:48 AM EST Symptoms: Headache, Neck Pain - Not From Injury, Dizziness Outcome: Talk to a nurse or provider within 15 minutes Reason: Can't move the neck normally documented in this encounter Plan of Treatment Upcoming Encounters Date Type Department Care Team ([facility] st Contact Info) Description 11/30/2024 1:45 PM EST Office Visit [facility] MED & PEDS [address] [place] [address] Nai Menendez MD [address] [place] [address] documented as of this encounter Visit Diagnoses Not on filedocumented in this encounter Additional Health Concerns Assessment Noted Time PHQ-9 Depression Total Score: 4 02/02/20 24 9:37 AM EDT documented as of this encounter Care Teams Education Nurse Relationship Specialty Start Date End Date Analy Chen MD [address] [place] [address] PCP - General Internal Medicine 02/02/24 09/24/24 Nai Menendez MD [address] [place] [address] PCP - General Internal Medicine 09/25/24 documented as of this encounter
--- OUTSIDE RECORDS SUMMARY | 2024-11-29 15:04 | XMS_ITS | Encounter Summary ---
Author Organization [employer] Address [address] [facility] 7 [place] [address] Care Team Providers Care Bistro Attendant Name Role Phone Nai Menendez MD Primary Care Provider [phone] Reason for Visit * Reason Onset Date Comments CHART PREP 11/29/2024 Encounter Details Date Type Department Care Team ([facility] Contact Info) Description 11/29/2024 Telephone [facility] CHC MED & PEDS [address] [place] [address] Nai Menendez MD [address] [place] [address] CHART PREP Social History Tobacco Use Types Packs/Day Years [...] encounter Miscellaneous Notes * Telephone Encounter - Lucero Curry MA - 11/29/2024 11:40 AM EST Chart Prep Labs: done Images: done Vaccines due: yes Referrals: complete Screenings: Overdue care gaps: Sbirt, SDOH, PHQ-9 documented in this encounter Plan of Treatment Upcoming Encounters Date Type Department Care Team (Late st Contact Info) Description 11/30/2024 1:45 PM EST Office Visit [facility] CH[facility] MED & PEDS [address] [place] [address] Nai Menendez MD [address] [place] [address] documented as of this encounter Visit Diagnoses Not on filedocumented in this encounter Additional Health Concerns Assessment Noted Time PHQ-9 Depression Total Score: 4 02/02/20 9:37 AM EDT documented as of this encounter Care Teams Bistro Attendant Relationship Specialty Start Date End Date Nai Menendez MD [address] [place] [address] PCP - General Internal Medicine 09/25/24 documented as of this encounter
--- OUTSIDE RECORDS SUMMARY | 2024-11-29 15:05 | XMS_ITS | Encounter Summary ---
Author Organization [employer] Address [address] [facility] 7t [place] [address] Care Team Providers Care Connie Scratcher Name Role Phone Analy Chen MD Primary Care Provider [phone] Nai Menendez MD Primary Care Provider [phone] Reason for Visit * Reason Onset Date Comments FYI 05/23/2024 Encounter Details Date Type Department Care Team (Late st Contact Info) Description 05/23/2024 Telephone [facility] MEDICINE [address] [place] [address] Analy Chen MD [address] [place] [address] FYI Social History Tobacco Use Types Packs/Day Years [...] encounter Miscellaneous Notes * Telephone Encounter - Carole Perkins RN - 05/23/2024 12:49 PM EDT Noted. * Telephone Encounter - Shana Abrams - 05/23/2024 12:09 PM EDT Tc from pt would like to inform PCP that they are scheduled at [facility] 06/01/[address] scan =. Advised will leave message as FYI. documented in this encounter Plan of Treatment Upcoming Encounters Date Type Department Care Team (Late st Contact Info) Description 11/30/2024 1:45 PM EST Office Visit [facility] MED & PEDS [address] [place] [address] Nai Menendez MD [address] [place] [address] documented as of this encounter Visit Diagnoses Not on filedocumented in this encounter Additional Health Concerns Assessment Noted Time PHQ-9 Depression Total Score: 4 02/02/20 9:37 AM EDT documented as of this encounter Care Teams Connie Scratcher Relationship Specialty Start Date End Date Analy Chen MD [address] [place] [address] PCP - General Internal Medicine 02/02/24 09/24/24 Nai Menendez MD [address] [place] [address] PCP - General Internal Medicine 09/25/24 documented as of this encounter
--- OUTSIDE RECORDS SUMMARY | 2024-11-29 15:05 | XMS_ITS | Encounter Summary ---
Author Organization [employer] Address [address] [facility] 7t [place] [address] Care Team Providers Care Superintendent Stations Name Role Phone Analy Chen MD Primary Care Provider [phone] Nai Menendez MD Primary Care Provider [phone]- [phone] Reason for Visit * Reason Onset Date Comments Nurse Triage 02/09/2024 Encounter Details Date Type Department Care Team (Late st Contact Info) Description 02/09/2024 Telephone [facility] MEDICINE [address] [place] [address] Analy Chen MD [address] [place] [address] Nurse Triage Social History Tobacco Use Types [...] Telephone Encounter - Maritza Chandra RN - 02/09/2024 9:59 AM EDT Triage call Pt reports hernia repair surgery 01/27/24. Pt reports continues to have lump in right groin area. Pt reports much pain from this area. Pt has seen Dr. Thomas 02/08/24 in regards to this concern. Pt was advised to contact surgeon for follow up. Pt contacted surgeon Dr. Christie and has an apt 03/03/24. Prescription for naproxen was obtained 02/08/24 and taken x2 with good effect especially during the night. In the mean time Pt is reporting much pain, and is very upset about the possibility of the hernia remaining at this time. Pt is requesting an ultra sound and is concerned about effectiveness of previous surgery. No apts available in [facility] today or tomorrow. Pt is advised to come [facility] today for provider to see Pt and Pt agrees with disposition. Insurance is verified as active prior to booking. Protocol Used: Abdominal Pain - Male (Adult) Protocol-Based Disposition: See in Office or Video Visit Today Video visit not offered Positive Triage Question: * Patient wants to be seen * All higher-acuity triage questions were negative Care Advice Discussed: * Rest * Drink Clear Fluids * Diet * Pass a Stool * Reasons To Call Back - Severe pain lasts over 1 hour - Constant pain lasts over 2 hours - Intermittent pains (e.g., comes and goes, cramps) lasts over 48 hours - You become worse * Telephone Encounter - Jules Mcqueen - 02/09/2024 9:10 AM EDT Symptom: Abdominal Pain - Male Outcome: Talk to a nurse or provider within 15 minutes Reason: Pain in the scrotum documented in this encounter Plan of Treatment Upcoming Encounters Date Type Department Care Team (Late st Contact Info) Description 11/30/2024 1:45 PM EST Office Visit [facility] CHC MED & PEDS [address] [place] [address] Nai Menendez MD [address] [place] [address] documented as of this encounter Visit Diagnoses Not on filedocumented in this encounter Additional Health Concerns Assessment Noted Time PHQ-9 Depression Total Score: 4 02/02/20 24 9:37 AM EDT documented as of this encounter Care Teams Superintendent Stations Relationship Specialty Start Date End Date Analy Chen MD [address] [place] [address] PCP - General Internal Medicine 02/02/24 09/24/24 Nai Menendez MD [address] [place] [address] PCP - General Internal Medicine 09/25/24 documented as of this encounter
--- OUTSIDE RECORDS SUMMARY | 2024-11-29 15:05 | XMS_ITS | Encounter Summary ---
Author Organization [employer] Address 75 [facility] 7t [place] [address] Care Team Providers Care Canvas Baster Name Role Phone Analy Chen MD Primary Care Provider [phone] Nai Menendez MD Primary Care Provider [phone]- [phone] Reason for Visit * Reason Onset Date Comments Call Back Request 06/09/2024 Encounter Details Date Type Department Care Team (Late st Contact Info) Description 06/09/2024 Telephone [facility] MEDICINE [address] [place] [address] Analy Chen MD [address] [place] [address] Call Back Request Social History Tobacco Use Types Packs/Day Years [...] Telephone Encounter - Wing Marisol RN - 06/09/2024 12:13 PM EDT FYI to provider, tc from pt reporting continued issue with right lump of testicle. Was seen in ED for this and was referred to Dr. Gary Christie. Dr. Christie did a procedure on pt on 01/26 for a supposed hernia and pt thought it was for the lump. Pt was told by Dr. Christie that he would like to do another procedure on pt after a CAT scan came back normal. Pt refused and does not want to see Dr. Christie again. Pt reports continued right lump pain and will see Dr. Menendez on 06/12 at 11:30 am. Pt verbalized understanding and agreement with plan. * Telephone Encounter - Yassine Gonzales - 06/09/2024 10:49 AM EDT Tc from patient calling request a call back states is very frustrated with the out come of the apptwith the radiologist states had a procedure don moon 01/26 and was told would need to under go the same operation patient feels like it is malpractice and would like to discuss with provider documented in this encounter Plan of Treatment Upcoming Encounters Date Type Department Care Team (Late st Contact Info) Description 11/30/2024 1:45 PM EST Office Visit [facility] CHC MED & PEDS [address] [place] [address] Nai Menendez MD [address] [place] [address] documented as of this encounter Visit Diagnoses Not on filedocumented in this encounter Additional Health Concerns Assessment Noted Time PHQ-9 Depression Total Score: 4 02/02/20 24 9:37 AM EDT documented as of this encounter Care Teams Canvas Baster Relationship Specialty Start Date End Date Analy Chen MD [address] [place] [address] PCP - General Internal Medicine 02/02/24 09/24/24 Nai Menendez MD [address] [place] [address] PCP - General Internal Medicine 09/25/24 documented as of this encounter
== END 2024-11-29 13:56 | disposition home or self-care (01) ==
PROVIDERS: PCP Pediatrics; Visit Provider Urology
DX: R19.09 Other intra-abdominal and pelvic swelling, mass and lump (principal); R10.31 Right lower quadrant pain; R10.32 Left lower quadrant pain
CPT/HCPCS: 99214

== ENCOUNTER → 2024-11-29 12:58 | Outpatient (BNVA) | payer MEDICAID, SELFPAY | PROVIDERS: PCP Pediatrics; Visit Provider Urology | DX: R19.09 Other intra-abdominal and pelvic swelling, mass and lump (principal); R10.31 Right lower quadrant pain; R10.32 Left lower quadrant pain | CPT/HCPCS: 99212 ==

== ENCOUNTER 2024-11-30 14:44 | Outpatient (REF) | payer MEDICAID, SELFPAY ==
[2024-11-30 17:57] LABS: Anion Gap 12 (12-20); Blood Urea Nitrogen 21 mg/dL (9-16); Calcium 9.9 mg/dL (8.4-10.2); Carbon Dioxide 26 mmol/L (22-29); Chloride 107 mmol/L (96-108); Estimated Glomerular Filt Rate > 60; Glucose Random 100 mg/dL (60-115); Potassium 3.7 mmol/L (3.3-5.1); Sodium 141 mmol/L (135-145)
--- OUTSIDE RECORDS SUMMARY | 2024-11-30 18:38 | XMS_ITS | Encounter Summary ---
Author Organization [employer] Address 75 [facility] 7t [place] [address] Care Team Providers Care Ct Technician Name Role Phone Analy Chen MD Primary Care Provider [phone] Nai Menendez MD Primary Care Provider [phone] Reason for Visit * Reason Onset Date Comments Nurse Triage 02/09/2024 Encounter Details Date Type Department Care Team (Late st Contact Info) Description 02/09/2024 Telephone [facility] MEDICINE [address] [place] [address] Analy Chen MD [address] [place] [address] Nurse Triage Social History Tobacco Use Types [...] of previous surgery. No apts available in [facility] today or tomorrow. Pt is advised to come [facility] today for provider to see Pt and [...] documented in this encounter Plan of Treatment Not on file documented as of this encounter Visit Diagnoses Not on filedocumented in this encounter Additional Health Concerns Assessment Noted Time PHQ-9 Depression Total Score: 4 02/02/20 9:37 AM EDT documented as of this encounter Care Teams Ct Technician Relationship Specialty Start Date End Date Analy Chen MD [address] [place] [address] PCP - General Internal Medicine 02/02/24 09/24/24 Nai Menendez MD [address] [place] [address] PCP - General Internal Medicine 09/25/24 documented as of this encounter
--- OUTSIDE RECORDS SUMMARY | 2024-11-30 18:38 | XMS_ITS | Encounter Summary ---
Author Organization [employer] Address 75 [facility] [address] [address] Care Team Providers Care Sports Team Manager Name Role Phone Analy Chen MD Primary Care Provider [phone] Nai Menendez MD Primary Care Provider [phone] Reason for Referral * Consultation (Routine) - Closed Specialty Diagnoses / Procedures Referred By Contac t Referred To Contact Cardiology Diagnoses Primary hypertension Other chest pain Nai Menendez MD [address] [place] [address] Phone: tel: fax: Stephan Batista MD [address] [place] [address] Phone: tel: fax: Referral ID Status Reason Start Date Expiration Date V isits Requested Visits Authorized [id number] Closed Specialty Services Required 04/17/2024 04/17/2025 1 1 Encounter Details Date Type Department Care Team (Late st Contact Info) Description 04/17/2024 Orders Only C [facility]S [address] [place] [address] [phone] Nai Menendez MD [address] [place] [address] Primary hypertension (Primary Dx); Other chest pain [...] as of this encounter Plan of Treatment Scheduled Referrals Name Type Priority Associated Diagnoses [...] documented as of this encounter Care Teams Sports Team Manager Relationship Specialty Start Date End Date Analy Chen MD [address] [place], [place] [phone] PCP - General Internal Medicine 02/02/24 09/24/24 Nai Menendez MD [address] [place] [address] PCP - General Internal Medicine 09/25/24 documented as of this encounter
--- OUTSIDE RECORDS SUMMARY | 2024-11-30 18:38 | XMS_ITS | Encounter Summary ---
Author Organization [employer] Address [address] [facility] [address] 7t [place] [address] Care Team Providers Care Legal Stenographer Name Role Phone Nai Menendez MD Primary Care Provider [phone] Encounter Details Date Type Department Care Team (Latest Contact Info) Description 11/30/2024 Travel Social History Tobacco Use Types Packs/Day [...] as of this encounter Plan of Treatment Not on file documented as of this encounter Visit Diagnoses Not on filedocumented in this encounter Additional Health Concerns Assessment Noted Time PHQ-9 Depression Total Score: 4 02/02/20 9:37 AM EDT documented as of this encounter Care Teams Legal Stenographer Relationship Specialty Start Date End Date Nai Menendez MD [address] [place] [address] PCP - General Internal Medicine 09/25/24 documented as of this encounter
--- OUTSIDE RECORDS SUMMARY | 2024-11-30 18:38 | XMS_ITS | Encounter Summary ---
Author Organization [employer] Address 75 [facility] 7t [place] [address] Care Team Providers Care Ambulance Mechanic Name Role Phone Analy Chen MD Primary Care Provider [phone] Nai Menendez MD Primary Care Provider [phone] Encounter Details Date Type Department Care Team ([facility] st Contact Info) Description 06/14/2024 Orders Only [facility] CHC MED & PEDS [address] [place], [place] [phone] Nai Menendez MD [address] [place] [address] Tremor (Primary Dx); Low TSH level Social [...] documented as of this encounter Care Teams Ambulance Mechanic Relationship Specialty Start Date End Date Analy Chen MD [address] [place] [address] PCP - General Internal Medicine 02/02/24 09/24/24 Nai Menendez MD [address] [place] [address] PCP - General Internal Medicine 09/25/24 documented as of this encounter
--- OUTSIDE RECORDS SUMMARY | 2024-11-30 18:38 | XMS_ITS | Encounter Summary ---
Author Organization [employer] Address 75 [facility] 7 [place] [address] Care Team Providers Care Placement Coordinator Name Role Phone Nai Menendez MD Primary Care Provider [phone] Reason for Visit * Reason Onset Date Comments CHART PREP 11/29/2024 Encounter Details Date Type Department Care Team ([facility] Contact Info) Description 11/29/2024 Telephone [facility] CHC MED & PEDS [address] [place] [address] Nai Menendez MD [address] [place] [address] CHART PREP Social History Tobacco Use Types [...] documented as of this encounter Care Teams Placement Coordinator Relationship Specialty Start Date End Date Nai Menendez MD [address] [place] [address] PCP - General Internal Medicine 09/25/24 documented as of this encounter
--- OUTSIDE RECORDS SUMMARY | 2024-11-30 18:38 | XMS_ITS | Encounter Summary ---
Author Organization [employer] Address [address] 7t [place] [address] Care Team Providers Care Admin Prog Coord Name Role Phone Nai Menendez MD Primary Care Provider [phone] Encounter Details Date Type Department Care Team [...] documented as of this encounter Care Teams Admin Prog Coord Relationship Specialty Start Date End Date Nai Menendez MD [address] [place] [address] PCP - General Internal Medicine 09/25/24 documented as of this encounter
--- OUTSIDE RECORDS SUMMARY | 2024-11-30 18:38 | XMS_ITS | Clinical Summary ---
Author Organization [facility] Address [address] [place] [address] Care Team Providers Care Panel Edge Sealer Name Role Phone Unavailable Primary Care Provider [...]
--- OUTSIDE RECORDS SUMMARY | 2024-11-30 18:38 | XMS_ITS | Encounter Summary ---
Author Organization [employer] Address [address] [facility] 7 [place] [address] Care Team Providers Care Electrical Engineering Designer Name Role Phone Nai Menendez MD Primary Care Provider [phone] Reason for Visit * Reason Onset Date Comments recall appt 11/23/2024 Pt needs appt Encounter Details Date Type Department Care Team ([facility] st Contact Info) Description 11/23/2024 Telephone [facility] CHC MED & PEDS [address] [place], [place] [phone] Nai Menendez MD [address] [place] [address] recall appt (Pt needs appt) Social History [...] documented as of this encounter Care Teams Electrical Engineering Designer Relationship Specialty Start Date End Date Nai Menendez MD [address] [place] [address] PCP - General Internal Medicine 09/25/24 documented as of this encounter
--- OUTSIDE RECORDS SUMMARY | 2024-11-30 18:38 | XMS_ITS | Encounter Summary ---
Author Organization [employer] Address [address] [place] [address] [address] [address] Care Team Providers Care Field Counsel Name Role Phone Nai Menendez MD Primary Care Provider [phone] Reason for Referral * Consultation (Routine) - Pending Review Specialty Diagnoses / Procedures Referred By Contac t Referred To Contact Orthopaedic Surgery Diagnoses Left hip pain Nai Menendez MD [address] [place] [address] Phone: tel: fax: Referral ID Status Reason Start Date Expiration Date Visits Requested Visits Authorized [id number] Pending Review Specialty Services Required 11/30/2024 11/30/2025 1 1 * Consultation (Routine) - Pending Review Specialty Diagnoses / Procedures Referred By Contac t Referred To Contact Otolaryngology Diagnoses Nasal congestion Nai Menendez MD [address] [place] [address] Phone: tel: fax: Referral ID Status Reason Start Date Expiration Date Visits Requested Visits Authorized [id number] Pending Review Specialty Services Required 11/30/2024 11/30/2025 1 1 * Imaging (Routine) - Pending Review Specialty Diagnoses / Procedures Referred By Contac t Referred To Contact Radiology Diagnoses Right upper quadrant pain Procedures US Abdomen Complete Nai Menendez MD [address] [place] [address] Phone: tel: fax: Referral ID Status Reason Start Date Expiration Date V isits Requested Visits Authorized [id number] Pending Review 11/30/2024 11/30/2025 1 1 * Consultation (Routine) - Authorized Specialty Diagnoses / Procedures Referred By Contsarah t Referred To Contact Behavioral Health Diagnoses Anxiety Adjustment insomnia Nai Menendez MD [address] [place] [address] Phone: tel: fax: Referral ID Status Reason Start Date Expiration Date Visits Requested Visits Authorized [id number] Authorized Specialty Services Required 11/30/2024 11/30/2025 1 1 Reason for Visit * Reason Comments Follow-up Encounter Details Date Type Department Care Team ([facility] Contact Info) Description 11/30/2024 1:45 PM EST Office Visit [facility] CHC MED & PEDS [address] [place] [address] Nai Menendez MD [address] [place] [address] Severe right groin pain (Primary Dx); Primary hypertension; Nasal congestion; Gastroesophageal reflux disease without esophagitis; Anxiety; Adjustment insomnia; Left hip pain; Right upper quadrant pain Social History Tobacco Use Types Packs/Day [...] AM EDT documented as of this encounter Last Filed Vital Signs Vital Sign Reading Time Taken Comments Blood Pressure 142/82 11/30/2024 1:35 PM EST Pulse 97 11/30/2024 1:35 PM EST Temperature 36.9 ??C (98.4 ??F) 11/30/2024 1:35 PM ES T Respiratory Rate 20 11/30/2024 1:35 PM EST Oxygen Saturation 98% 11/30/2024 1:35 PM EST Inhaled Oxygen Concentration - - Weight 70.8 kg (156 lb) 11/30/2024 1:35 PM EST Height 167.6 cm (5' 6 ) 11/30/2024 1:35 PM EST Body Mass Index 25.18 11/30/2024 1:35 PM EST documented in this encounter Plan of Treatment Scheduled Orders Name Type Priority Associated Diagnoses Orde r Schedule US Abdomen Complete Imaging Routine Right upper quadrant pain Expected: 11/30/2024, Expires: 11/30/2025 Scheduled Referrals Name Type Priority Associated Diagnoses Order Schedule Referral to Behavioral Health Outpatient Referral Routine Anxiety Adjustment insomnia Expected: 11/30/2024 (Approximate), Expires: 11/30/2025 Referral to ENT Outpatient Referral Routine Nasal congestion Expected: 11/30/2024 (Approximate), Expires: 11/30/2025 Referral to Orthopaedic Surgery Outpatient Referral Routine Left hip pain Expected: 11/30/2024 (Approximate), Expires: 11/30/2025 documented as of this encounter Visit Diagnoses Diagnosis Severe right groin pain- Primary Abdominal pain, right lower quadrant Primary hypertension Unspecified essential hypertension Nasal congestion Other diseases of nasal cavity and sinuses Gastroesophageal reflux disease without esophagitis Esophageal reflux Anxiety Anxiety state, unspecified Adjustment insomnia Insomnia, unspecified Left hip pain Pain in joint, pelvic region and thigh Right upper quadrant pain Abdominal pain, right upper quadrant documented in this encounter Additional Health Concerns Assessment Noted Time PHQ-9 Depression Total Score: 4 02/02/20 24 9:37 AM EDT documented as of this encounter Care Teams Field Counsel Relationship Specialty Start Date End Date Nai Menendez MD [address] [place] [address] PCP - General Internal Medicine 09/25/24 documented as of this encounter
--- OUTSIDE RECORDS SUMMARY | 2024-11-30 18:38 | XMS_ITS | Clinical Summary ---
Author Organization [facility] Address [address] [place] [address] Care Team Providers Care Console Manager Name Role Phone Unavailable Primary Care Provider [...] 01/23/2017 Imm-Zoster, Recombinant (1 of 2) 01/23/2022 Fts-ROSCP-38 (3 - season) 2024 021, 03/06/2021 Imm-Influenza (#1) 2024 Alcohol and Drug Screen 11/01/2024 Depression Annual Screen 11/01/2024 Insurance COVID19 [facility] [employer] [place] [address]
--- OUTSIDE RECORDS SUMMARY | 2024-11-30 18:38 | XMS_ITS | Encounter Summary ---
Author Organization [employer] Address 75 [facility] 7 [place] [address] Care Team Providers Care Voice Network Engineer Name Role Phone Nai Menendez MD Primary Care Provider [phone] Reason for Visit * Reason Onset Date Comments PT-1 10/04/2024 Encounter Details Date Type Department Care Team (Late st Contact Info) Description 10/04/2024 Telephone [facility] MEDICINE [address] [place] [address] Nai Menendez MD [address] [place] [address] PT-1 Social History Tobacco Use Types Packs/Day [...] Y/N: Yes Provider name or facility name: [facility] Facility Address: [address] [place] [address] Escort needed: Y/N: Yes Do you have a wheelchair: Y/N: No If yes- Manual or electric: Visits: 3 times a month Provider name or facility name: [facility] Facility Address: [address] [place] [address] Escort needed: Y/N: No Do you have a wheelchair: Y/N: No If yes- Manual or electric: Provider name or facility name: [facility] ( daily building ) Facility Address: [address] [place] [address] Escort needed: Y/N: No Do you have a wheelchair: Y/N: No If yes- Manual or electric: Visits: 3 times a month Date: 12/06/23 Time:9:30am Provider name or facility name: [facility] Facility Address: [address] [place] [address] Escort needed: Y/N: No Do you have [...] documented as of this encounter Care Teams Voice Network Engineer Relationship Specialty Start Date End Date Nai Menendez MD [address] [place] [address] PCP - General Internal Medicine 09/25/24 documented as of this encounter
--- OUTSIDE RECORDS SUMMARY | 2024-11-30 18:38 | XMS_ITS | Encounter Summary ---
Author Organization [employer] Address 75 [facility] 7 [place] [address] Care Team Providers Care Director Sports Name Role Phone Nai Menendez MD Primary Care Provider [phone] Reason for Visit * Reason Onset Date Comments Pt1 10/10/2024 Encounter Details Date Type Department Care Team ([facility] Contact Info) Description 10/10/[address] [facility] CHC MED & PEDS [address] [place] [address] Nai Menendez MD [address] [place] [address] Pt1 Social History Tobacco Use Types Packs/Day [...] Y/N: Yes Provider name or facility name: [facility] Facility Address: [address] [place] [address] [place] [address] Escort needed: Y/N: No Do you have [...] documented as of this encounter Care Teams Director Sports Relationship Specialty Start Date End Date Nai Menendez MD [address] [place] [address] [place] [address] PCP - General Internal Medicine 09/25/24 documented as of this encounter
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
--- OUTSIDE RECORDS SUMMARY | 2024-11-30 18:38 | XMS_ITS | Encounter Summary ---
Author Organization [employer] Address [address] [facility] [address] [place] [address] Care Team Providers Care Customer Care Associate Name Role Phone Analy Chen MD Primary Care Provider [phone] Nai Menendez MD Primary Care Provider [phone] Reason for Visit * Reason Onset Date Comments Nurse Triage 09/12/2024 Encounter Details Date Type Department Care Team (Late st Contact Info) Description 09/12/2024 Telephone [facility] [address] [place] [address] Analy Chen MD [address] [place] [address] Nurse Triage Social History Tobacco Use Types [...] become worse * Telephone Encounter - Jules Richar - 09/12/2024 8:48 AM EST Symptoms: Headache, [...] documented as of this encounter Care Teams Customer Care Associate Relationship Specialty Start Date End Date Analy Chen MD [address] [place] [address] PCP - General Internal Medicine 02/02/24 09/24/24 Nai Menendez MD [address] [place] [address] PCP - General Internal Medicine 09/25/24 documented as of this encounter
--- OUTSIDE RECORDS SUMMARY | 2024-11-30 18:38 | XMS_ITS | Encounter Summary ---
Author Organization [employer] Address [address] [facility] [address] [place] [address] Care Team Providers Care Dressed Poultry Grader Name Role Phone Analy Chen MD Primary Care Provider [phone] Nai Menendez MD Primary Care Provider [phone] Reason for Visit * Reason Onset Date Comments ER Follow-up 02/11/2024 Encounter Details Date Type Department Care Team (Late st Contact Info) Description 02/11/[address] [facility] [address] [place] [address] Analy Chen MD [address] [place], [place] [phone] ER Follow-up Social History Tobacco Use Types [...] ED visit on : Date: 02/08 [place] [facility] [place] for: Skin Lump had surgery on [...] documented as of this encounter Care Teams Dressed Poultry Grader Relationship Specialty Start Date End Date Analy Chen MD [address] [place] [address] PCP - General Internal Medicine 02/02/24 09/24/24 Nai Menendez MD [address] [place] [address] PCP - General Internal Medicine 09/25/24 documented as of this encounter
--- OUTSIDE RECORDS SUMMARY | 2024-11-30 18:38 | XMS_ITS | Encounter Summary ---
Author Organization [employer] Address [address] [facility] [address] [place] [address] Care Team Providers Care Business Line Controller Name Role Phone Analy Chen MD Primary Care Provider [phone] Nai Menendez MD Primary Care Provider [phone] Reason for Visit * Reason Onset Date Comments FYI 05/23/2024 Encounter Details Date Type Department Care Team (Late st Contact Info) Description 05/23/2024 Telephone [facility] [address] [place] [address] Analy Chen MD [address] [place] [address] FYI Social History Tobacco Use Types Packs/Day [...] inform PCP that they are scheduled at [facility] 06/01/[address] scan =. Advised will leave message as FYI. documented in this encounter Plan of Treatment Not on file documented as of this encounter Visit Diagnoses Not on filedocumented in this encounter Additional Health Concerns Assessment Noted Time PHQ-9 Depression Total Score: 4 02/02/20 9:37 AM EDT documented as of this encounter Care Teams Business Line Controller Relationship Specialty Start Date End Date Analy Chen MD [address] [place] [address] PCP - General Internal Medicine 02/02/24 09/24/24 Nai Menendez MD [address] [place] [address] PCP - General Internal Medicine 09/25/24 documented as of this encounter
--- OUTSIDE RECORDS SUMMARY | 2024-11-30 18:39 | XMS_ITS | Encounter Summary ---
Author Organization [employer] Address [address] [facility] [address] [place] [address] Care Team Providers Care Barrel Burner Name Role Phone Analy Chen MD Primary Care Provider [phone] Nai Menendez MD Primary Care Provider [phone] Reason for Visit * Reason Onset Date Comments Call Back Request 06/09/2024 Encounter Details Date Type Department Care Team (Late st Contact Info) Description 06/09/2024 Telephone [facility] [address] [place] [address] Analy Chen MD [address] [place] [address] Call Back Request Social History Tobacco Use [...] documented as of this encounter Care Teams Barrel Burner Relationship Specialty Start Date End Date Analy Chen MD [address] [place] [address] PCP - General Internal Medicine 02/02/24 09/24/24 Nai Menendez MD [address] [place] [address] PCP - General Internal Medicine 09/25/24 documented as of this encounter
== END 2024-11-30 14:45 | disposition home or self-care (01) ==
LOC: HO.CHCLDS 14:44
PROVIDERS: Visit Provider Internal Medicine
DX: R07.9 Chest pain, unspecified (principal)
CPT/HCPCS: 36415; 80048

== ENCOUNTER 2024-12-12 08:17 | Outpatient (AMB) | payer MEDICAID, SELFPAY ==
[2024-12-12 08:39] VITALS: BP 110/68; PULSE 73; BMI 25.1
--- NOTE | 2024-12-12 08:39 | MHC.OFFVIS ---
Vital Signs 12/12/24 08:39 Height 5 ft 6 in Weight 155 lb 10.342 oz BMI 25.1 BP 110/68 Blood Pressure Location Lt brachial Position Sitting Pulse 73 Intake Visit Reasons: 3 mth f/upmibi/ holter/ echo AC Appeals Referee Required: No Accompanied by: Self / Same As Patient Allergies No Known Allergies Allergy (Verified 11/29/24 13:25) Medication List - Last Reconciled 12/12/24 by Kyle Marr MD diclofenac sodium 1% topical TID gabapentin 300 mg PO TID lidocaine 5% 1 patch topical DAILY lisinopril 20 mg PO DAILY mirtazapine 7.5 mg PO BEDTIME omeprazole 20 mg PO BID sumatriptan succinate mg PO DAILY tadalafil (Cialis) 10 mg PO DAILY PRN 30 days tadalafil (Cialis) 5 mg PO DAILY 90 days tamsulosin mg PO DAILY tramadol 50 mg PO TID PRN HPI Comments Details: Osei returns for follow-up. Continues to have some sharp pains in the left chest which can happen any time. Today, he is also describing some pain in the left thigh. He has had an extensive workup including stress test, echocardiogram, coronary CTA. The pain he describes nonexertional and can happen randomly. Overall, feels just about the same as before. [facility] Medical History Subclinical hyperthyroidism Palpitation Shortness of breath Chest pain Hernia No known health problems Surgical History Hx of hernia repair H/O knee surgery Family History Maternal Grandmother Heart problem Paternal Grandmother Heart problem Social History Alcohol intake: never Patient Tobacco Use Status: Never used Tobacco Review of Systems Const Denies chills, Denies fatigue, Denies fever(s), Denies weight gain and Denies weight loss ENT Denies dizziness Card Reports chest pain, Reports irregular heart rhythm, Denies leg edema, Denies lightheadedness, Denies palpitations, Denies dyspnea on exertion, Denies orthopnea and Denies other Resp Denies cough and Denies dyspnea on exertion GI Denies hematochezia and Denies change in stool character Musc Denies abnormal gait, Denies muscle weakness, Denies numbness, Denies radiating pain into limb and Denies tingling Neuro Denies abnormal gait, Denies dizziness, Denies numbness and Denies tingling Endo Denies fatigue and Denies palpitations Physical Exam Vital Signs: Last Vital Signs Pulse 73 12/12/24 08:39 BP 110/68 12/12/24 08:39 BMI result Body Mass Index 25.1 Const General: comfortable and no acute distress Orientation/consciousness: patient oriented x3 HEENT Other: Unremarkable Head: Yes normal to inspection Neck Neck: Yes normal visual inspection Chest Chest palpation & inspection: normal inspection of the chest Resp Auscultation: clear to auscultation bilaterally Cardio Palpation: normal PMI Heart sounds: S1 normal heart sound present, S2 normal heart sound present, no gallops, no murmurs and no rubs GI Palpation (GI): Soft to palpation Back/Spine/Pelvis Other: unremarkable Skin General skin exam: no rashes or lesions noted Neuro General: patient oriented x3 Extrem General: Yes normal to inspection Psych Mental Status: mental status grossly normal Office Procedures EKG Details: EKG with underlying sinus rhythm at 73/Min; minimal criteria for LVH; [place] [address]-Gnoznreypzcgkxrqm, Complete Assessment & Plan Assessment & Plan (1) Chest pain: Code(s): R07.9 - Chest pain, unspecified Category: Medical Qualifiers: Chest pain type: precordial pain Qualified Code(s): R07.2 - Precordial pain (2) Primary hypertension: Code(s): I10 - Essential (primary) hypertension Category: Medical Plan Cardiac studies reviewed. During the stress test, he did only 1+ minutes on the treadmill and was complaining of hip pain/chest pain. Then converted to pharmacological stress test. There was a fixed inferior defect thought to be artifactual but could not exclude infarct. In the echocardiogram, LVEF is 57%. Moderate septal hypertrophy. No significant valvular findings. Coronary CTA reported have normal coronary arteries. No coronary artery calcification. Available high sensitivity troponin within normal limits. Based on the above information, chest pain is noncardiac in nature. Could be musculoskeletal but not clear. No further workup necessary. Reassured. Septal hypertrophy could be related to hypertension. He is on lisinopril and blood pressure is controlled. Coding Level of Care Code Est Pt Level 3 (78150) Diagnoses Precordial pain R07.2 Chest pain type: precordial pain Primary hypertension I10 CPT Codes EKG - CPT: 51025-Solumkbyjcvradtjr, Complete ([id number])
== END 2024-12-12 08:55 | disposition home or self-care (01) ==
PROVIDERS: PCP Pediatrics; Visit Provider Internal Medicine
DX: R07.2 Precordial pain (principal); I10 Essential (primary) hypertension
CPT/HCPCS: 93010; 99213

== ENCOUNTER → 2024-12-12 08:17 | Outpatient (BNVA) | payer MEDICAID, SELFPAY | PROVIDERS: PCP Pediatrics; Visit Provider Internal Medicine | DX: I10 Essential (primary) hypertension (principal); R07.2 Precordial pain | CPT/HCPCS: 93005; 99212 ==

== ENCOUNTER 2024-12-15 09:58 | Outpatient (REF) | payer MEDICAID, SELFPAY ==
--- NOTE | ~2024-12-15 | US_ITS ---
CLINICAL HISTORY: Right upper quadrant pain US abdomen complete Comparison: None Findings: The visualized pancreas is normal. The aorta and inferior vena cava are normal caliber. The appearance of the liver suggests fatty infiltration. There are likely benign incidental cysts in the left lobe measuring 1.3 x 1.1 x 0.7 cm, 1.4 x 1.0 x 0.8 cm, and 0.3 x 0.3 x 0.2 cm There is no intrahepatic bile duct dilatation. The common duct is 3.0 mm in diameter. The gallbladder is normal. There is no sonographic Valdes sign. The main portal vein is antegrade. The right kidney is 10.9 cm in length. The left kidney is 11.1 cm in length. The spleen is normal. No ascites. IMPRESSION: 1. Hepatic steatosis. This document has been electronically signed by: Emiliano Roberts MD on 12/16/2024 08:38:53
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
--- OUTSIDE RECORDS SUMMARY | 2024-12-15 10:35 | XMS_ITS | Encounter Summary ---
Author Organization [employer] Address [address] [place] [address] Care Team Providers Care Phytopathologist Name Role Phone Nai Menendez MD Primary Care Provider [phone] Encounter Details Date Type Department Care Team [...] 9:00 AM EDT Office Visit [facility] MED & PEDS [address] [place] [address] Nai Menendez MD [address] [place] [address] documented as of this encounter Visit Diagnoses Not on filedocumented in this encounter Additional Health Concerns Assessment Noted Time PHQ-9 Depression Total Score: 4 02/02/20 9:37 AM EDT documented as of this encounter Care Teams Phytopathologist Relationship Specialty Start Date End Date Nai Menendez MD [address] [place] [address] PCP - General Internal Medicine 09/25/24 documented as of this encounter
--- OUTSIDE RECORDS SUMMARY | 2024-12-15 10:35 | XMS_ITS | Encounter Summary ---
Author Organization [employer] Address [address] [facility] [address], [place] [address] Care Team Providers Care Loom Fixer Supervisor Name Role Phone Analy Chen MD Primary Care Provider [phone] Nai Menendez MD Primary Care Provider [phone] Reason for Referral * Consultation (Routine) - Closed Specialty Diagnoses / Procedures Referred By Contac t Referred To Contact Cardiology Diagnoses Primary hypertension Other chest pain Nai Menendez MD [address] [place] [address] Phone: tel: fax: Stephan Batista MD [address] [place] [address] Phone: tel: fax: Referral ID Status Reason Start Date Expiration Date V isits Requested Visits Authorized [id number] Closed Specialty Services Required 04/17/2024 04/17/2025 1 1 Encounter Details Date Type Department Care Team (Late st Contact Info) Description 04/17/2024 Orders Only [facility] [address] [place] [phone] Nai Menendez MD [address] [place] [phone] Primary hypertension (Primary Dx); Other chest pain [...] Description 02/12/2025 9:00 AM EDT Office Visit [facility]S [address] [place] [address] Nai Menendez MD [address] [place] [address] Scheduled Referrals Name Type Priority Associated Diagnoses [...] documented as of this encounter Care Teams Loom Fixer Supervisor Relationship Specialty Start Date End Date Analy Chen MD [address] [place] [address] PCP - General Internal Medicine 02/02/24 09/24/24 Nai Menendez MD [address] [place] [address] PCP - General Internal Medicine 09/25/24 Phuong Fink Fruit CheckerChristian Education Director 12/05/24 documented as of this encounter
--- OUTSIDE RECORDS SUMMARY | 2024-12-15 10:36 | XMS_ITS | Encounter Summary ---
Author Organization [employer] Address [address] [facility] 7[address] [place] [address] Care Team Providers Care Patent Solicitor Name Role Phone Nai Menendez MD Primary Care Provider [phone] Encounter Details Date Type Department Care Team (Late st Contact Info) Description 10/24/2024 Orders Only [facility] External Provider, [facility] Social History Tobacco Use Types Packs/Day Years [...] Description 02/12/2025 9:00 AM EDT Office Visit [facility] & PEDS [address] [facility] [place] [address] Nai Menendez MD [address] [place] [place] [address] documented as of this encounter Procedures Procedure Name Priority Date/Time Associated Diagnosis Comments US SCROTUM Routine 10/24/2024 8:25 AM EST documented in this encounter Results * US Scrotum (10/24/2024 8:25 AM EST) Anatomical Region Laterality Modality Body Ultrasound 10/24/2024 8:25 AM EST Narrative 12/05/2024 11:39 AM EST ? [facility] [place] ?[address] ? [place] [address] ? Ultrasound Report ? Signed ? Patient: Osei Fink ?MR#: [id number] ?? 9 ? : 1970 ?Acct:[id number] ? Age/Sex: 54 / M ?ADM Date: 10/24/24 ? Loc: HO.HMGCX ? Attending Dr: Gayatri ALARCONP-BC ? Ordering Physician: Gayatri Ribeiro ?? Date of Service: 10/24/24 ?? Procedure(s): US scrotum ?? Accession Number(s): [id number] ? cc: Nai Menendez MD; Gayatri Ribeiro [facility] ? EXAMINATION: ?? US SCROTUM ? CLINICAL INFORMATION: ?? Scrotal pain. ? COMPARISON: ?? None available. ? TECHNIQUE: ?? A sonogram of the scrotum was performed assessing shine-scale appearance ?? and color Doppler flow. Spectral Doppler analysis of the arterial and ?? venous flow were performed in the testes bilaterally. ? FINDINGS: ? RIGHT: Right testicle measures 4.6 x 2.2 x 2.9 cm, volume 15.4 mL. No ?? focal testicular parenchymal lesions are visualized. Spectral Doppler ?? analysis of the arterial and venous flow is normal in the right testis. ? Right epididymal head is normal in size. There is a complex anechoic ?? cyst right epididymal head with echogenic debris within measuring 0.8 x ?? 1.2 x 1.1 cm. No right hydrocele or varicocele is seen. Right ?? epididymal Doppler flow is normal. There is an 8 echogenic tubular ?? structure seen mass fat within the inguinal canal extending to the ?? pelvis with mild vascularity. There is most suspicious for a inguinal ?? hernia. ? LEFT: Left testicle measures 4.3 x 2.0 x 2.9 cm, volume 13.1 mL. No ?? focal testicular parenchymal lesions are visualized. Spectral Doppler ?? analysis of the arterial and venous flow is normal in the left testis. ? Left epididymal head is normal in size. No left hydrocele or varicocele ?? is seen. Left epididymal Doppler flow is normal. There is a echogenic ?? areas ramus fat within the proximal inguinal ring question small hernia. ? US/US scrotum ?? IMPRESSION: ?? Moderate-sized right internal hernia and question small left proximal ?? inguinal hernia. ? Complex cyst right epididymal head with echogenic debris. ? Normal arterial and venous vascular flow seen to both testes and ?? epididymis. ? Electronically signed by: ??Jeffrey Mendoza MD ??12/05/2024 11:36 AM EST RP ? Dictated By: ?Jeffrey Mendoza MD ? Signed By: ?<Electronically signed by Jeffrey Mendoza MD in OV> ?12/05/24 1136 ? DD/ 0825 ? TD/TT: 10/24/24 0844 ? Crab Picker: MSM ? Procedure Note Guy, Image - 12/05/2024 [facility] [place] [facility] [address] [place] [address] Ultrasound Report Signed Patient: Osei Fink#: [id number] 9 : 1970Acct:[id number] Age/Sex: 54 / MADM Date: 10/24/24 Loc: HO.HMGCX Attending Dr: Gayatri Ribeiro [facility] Ordering Physician: Gayatri Ribeiro Date of Service: 10/24/24 Procedure(s): US scrotum Accession Number(s): [id number] cc: Nai Menendez MD; Gayatri Ribeiro EXAMINATION: US SCROTUM CLINICAL INFORMATION: Scrotal pain. COMPARISON: None available. TECHNIQUE: A sonogram of the scrotum was performed assessing shine-scale appearance and color Doppler flow. Spectral Doppler analysis of the arterial and venous flow were performed in the testes bilaterally. FINDINGS: RIGHT: Right testicle measures 4.6 x 2.2 x 2.9 cm, volume 15.4 mL. No focal testicular parenchymal lesions are visualized. Spectral Doppler analysis of the arterial and venous flow is normal in the right testis. Right epididymal head is normal in size. There is a complex anechoic cyst right epididymal head with echogenic debris within measuring 0.8 x 1.2 x 1.1 cm. No right hydrocele or varicocele is seen. Right epididymal Doppler flow is normal. There is an 8 echogenic tubular structure seen mass fat within the inguinal canal extending to the pelvis with mild vascularity. There is most suspicious for a inguinal hernia. LEFT: Left testicle measures 4.3 x 2.0 x 2.9 cm, volume 13.1 mL. No focal testicular parenchymal lesions are visualized. Spectral Doppler analysis of the arterial and venous flow is normal in the left testis. Left epididymal head is normal in size. No left hydrocele or varicocele is seen. Left epididymal Doppler flow is normal. There is a echogenic areas ramus fat within the proximal inguinal ring question small hernia. US/US scrotum IMPRESSION: Moderate-sized right internal hernia and question small left proximal inguinal hernia. Complex cyst right epididymal head with echogenic debris. Normal arterial and venous vascular flow seen to both testes and epididymis. Electronically signed by: Jeffrey Mendoza MD 12/05/2024 11:36 AM EST RP Dictated By: Jfefrey Mendoza MD Signed By: <Electronically signed by Jeffrey Mendoza MD in OV> 12/05/24 1136 DD/ 0825 TD/TT: 10/24/24 0844 Crab Picker: SATISH [facility] External Provider IMG US PROCEDURES Final Result documented in this encounter Visit Diagnoses Not on filedocumented in this encounter Additional Health Concerns Assessment Noted Time PHQ-9 Depression Total Score: 4 02/02/20 24 9:37 AM EDT documented as of this encounter Care Teams Patent Solicitor Relationship Specialty Start Date End Date Nai Menendez MD [address] [place] [phone] PCP - General Internal Medicine 09/25/24 Phuong Fink Director AutomotiveDirector Automotive 12/05/24 documented as of this encounter
--- OUTSIDE RECORDS SUMMARY | 2024-12-15 10:36 | XMS_ITS | Encounter Summary ---
Author Organization [employer] Address [address] [facility] [facility] 7[address] [place] [address] Care Team Providers Care Business Applications Developer Name Role Phone Analy Chen MD Primary Care Provider [phone] Nai Menendez MD Primary Care Provider [phone] Reason for Visit * Reason Onset Date Comments Nurse Triage 09/12/2024 Encounter Details Date Type Department Care Team (Late st Contact Info) Description 09/12/2024 Telephone [facility] [address] [place] [address] Analy Chen MD [address] [place] [address] Nurse Triage Social History Tobacco Use Types [...] You become worse * Telephone Encounter - Julessandro Mcqueen - 09/12/2024 8:48 AM EST Symptoms: Headache, Neck Pain - Not From Injury, Dizziness Outcome: Talk to a nurse or provider within 15 minutes Reason: Can't move the neck normally documented in this encounter Plan of Treatment Upcoming Encounters Date Type Department Care Team ([facility] st Contact Info) Description 02/12/2025 9:00 AM EDT Office Visit [facility] [address] [place] [address] Nai Menendez MD [address] [place] [address] documented as of this encounter Visit Diagnoses Not on filedocumented in this encounter Additional Health Concerns Assessment Noted Time PHQ-9 Depression Total Score: 4 02/02/20 24 9:37 AM EDT documented as of this encounter Care Teams Business Applications Developer Relationship Specialty Start Date End Date Analy Chen MD [address] [place] [address] PCP - General Internal Medicine 02/02/24 09/24/24 Nai Menendez MD [address] [place] [address] PCP - General Internal Medicine 09/25/24 Phuong Fink Automobile Mechanic MotorUtility Sales Representative 12/05/24 documented as of this encounter
--- OUTSIDE RECORDS SUMMARY | 2024-12-15 10:36 | XMS_ITS | Clinical Summary ---
Author Organization [employer] Address [address] [facility] [address] [place] [address] Care Team Providers Care Stencil Cutter Name Role Phone Nai Menendez MD Primary Care Provider [phone] Allergies No known active allergies Medications * This document contains information received from the source organization and may not represent a complete record from that organization. omeprazole (PriLOSEC) [address] capsule Take 20 mg by mouth 2 times daily. Active oxyCODONE (Roxicodone) 5 MG immediate release tablet Take 5 mg by mouth every 6 (six) hours if needed. 024 Active Senna-Time 8.6 MG tablet TAKE 1 TABLET BY MOUTH TWO TIMES A DAY NEEDED FOR CONSTIPATION Active Sod Fluoride-Potass ium Nitrate 1.1-5 % pasteIndication s:Dental caries [place] teeth for 2 minutes, morning and night. [...] minutes following use. 473 mL 024 Active lidocaine (Lidoderm) 5 % patch [...] split. 90 tablet 3 025 2024 Active cyclobenzaprine (Flexeril) 10 MG tablet Take 1 tablet (10 mg) by mouth 3 times daily for 10 days. 30 tablet 025 2024 Active gabapentin (Neurontin) 300 MG capsuleIndicati ons:Left hip pain Take 1 capsule (300 mg) by mouth 3 times daily. 90 capsule 3 Active amLODIPine (Norvasc) 5 MG tabletIndicatio ns:Primary hypertension Take 1 tablet (5 mg) by mouth Once per day. 30 tablet 11 025 2025 Active gabapentin (Neurontin) 300 MG capsule Take 300 mg by mouth 3 times daily. 024 2024 Discontinued(R eorder (will not trigger notification to Pharmacy)) mirtazapine (Remeron) 7.5 MG tabletIndicatio ns:Anxiety,Adju stment insomnia TAKE 1 TABLET(7.5 MG) BY MOUTH AT BEDTIME 30 tablet 1 024 2024 Discontinued(R eorder (will not trigger notification to Pharmacy)) cyclobenzaprine (Flexeril) 10 MG tablet Take 1 tablet (10 mg) by mouth 3 times daily for 10 days. 30 tablet 024 2024 Discontinued(R eorder (will not trigger [...] 02/02/2024 Nephrolithiasis 01/19/2024 Liver cyst 01/19/2024 Encounters * This document contains information received from the source organization and may not represent a complete record from that organization. Date Type Department Care Team Description 12/12/2024 10:45 AM EST Office Visit [facility] [address] [place] [address] Nai Menendez MD Left hip pain (Primary Dx); Primary hypertension; Bulge in groin area; Severe right groin pain; Dysuria 12/11/2024 Travel 12/11/[address] [address] Nai Menendez MD Nurse Triage 12/05/2024 Telephone [facility] [address] [place] [address] Nai Menendez MD Care Coordination ([facility] Cloth Hauler) 12/01/[address] [address] Nai Menendez MD Medication Question 11/30/2024 1:45 PM EST Office Visit [facility] [address] [place] [address] Nai Menendez MD Severe right groin pain (Primary Dx); Primary hypertension; Nasal congestion; Gastroesophageal reflux disease without esophagitis; Anxiety; Adjustment insomnia; Left hip pain; Right upper quadrant pain 11/30/2024 Travel 11/29/2024 Telephone [facility] [address] [place] [address] Nai Menendez MD CHART PREP 11/24/2024 Travel 11/23/2024 Telephone [facility] [address] [place] [address] Nai Menendez MD recall appt (Pt needs appt) 10/24/2024 Orders Only [facility] External Provider, [facility] 10/10/2024 Patient Outreach [facility] [address] [place] [address] Nai Menendez MD 10/10/2024 Patient Outreach [facility] [address] [place] [address] Nai Menendez MD Care Coordination ([facility] outreach for SDOH PT-1 and food needs-referral completed /) 10/10/2024 Telephone [facility] [address] [place] [address] Nai Menendez MD Pt1 10/04/2024 Patient Outreach [facility] [address] [place] [address] Nai Menendez MD Care Coordination ([facility] outreach for SDOH PT-1 and food needs-referral completed /) 10/04/[address] [address] Nai Menendez MD PT-1 09/30/2024 Refill [facility] [address] [place] [address] Analy Chen MD 09/26/2024 Telephone [facility] [address] [place] [address] Renate De Souza, RN Results 09/25/2024 2:45 PM EST Office Visit [facility] [address] [place] [address] Nai Menendez MD Nephrolithiasis (Primary Dx); Atypical chest pain; Neck pain; Primary hypertension; Other chest pain; Encounter for immunization; IFG (impaired fasting glucose); Abnormal movement; Epidermoid cyst 09/25/2024 Travel 09/18/2024 Travel 09/14/2024 Patient Outreach [facility] [address] [place] [address] Analy Chen MD Pre-visit Planning ([facility] unable to reach [facility]) from Last 3 Months Immunizations Name Administration [...] Sign Reading Time Taken Comments Blood Pressure 142/95 12/12/2024 11:11 AM EST Pulse 88 12/12/2024 11:11 AM EST Temperature 36.9 ??C (98.4 ??F) 12/12/2024 11:[address] Respiratory Rate 20 12/12/2024 11:11 AM EST Oxygen Saturation 98% 12/12/2024 11:11 AM EST Inhaled Oxygen Concentration - - Weight 70.3 kg (155 lb) 12/12/2024 11:11 AM EST Height 167.6 cm (5' 6 ) 12/12/2024 11:11 AM EST Body Mass Index 25.02 12/12/2024 11:11 AM EST Plan of Treatment Upcoming Encounters Date Type Department Care Team ([facility] st Contact Info) Description 02/12/2025 9:00 AM EDT Office Visit [facility] [address] [place] [address] Nai Menendez MD [address] [place] [address] Health Maintenance Due Date Last Done Comments [...] tponed from 01/23/2022 (Patient Refused) Tobacco Screening 12/12/2025 12/12/2024 Colorectal Cancer Screening 02/20/2027 FIT DNA/Cologuard 02/20/2027 [...] US SCROTUM Routine 10/24/2024 8:25 AM EST POCT GLYCATED HEMOGLOBIN, TOTAL Routine 09/25/2024 4:21 PM EST IFG (impaired fasting glucose) POCT GLUCOSE Routine 09/25/2024 4:20 PM EST IFG (impaired fasting glucose) MAGNESIUM Routine 09/25/2024 3:40 PM EST Abnormal movement BASIC METABOLIC PANEL Routine 09/25/2024 3:40 PM EST Abnormal movement PERIODIC ORAL EVALUATION - ESTABLISHED PATIENT Routine 08/15/2024 9:30 AM EDT Periodontal disease Defective dental jew Symptomatic irreversible pulpitis PROPHYLAXIS - ADULT Routine 04/20/2024 9 :00 AM EDT INTRAORAL - COMPLETE SERIES OF RADIOGRAPHIC IMAGES Routine 03/15/2024 8:00 [...] Recently Relevant to Health Maintenance Results * US Scrotum (10/24/2024 8:25 AM EST) Anatomical Region Laterality Modality Body Ultrasound 10/24/2024 8:25 AM EST Narrative 12/05/2024 11:39 AM EST ? [facility] ?[address] ? [place] [address] ? Ultrasound Report ? Signed ? Patient: Osei Fink ?MR#: [id number] ?? 9 ? : 1970 ?Acct:[id number] ? Age/Sex: 54 / M ?ADM Date: 10/24/24 ? Loc: HO.HMGCX ? Attending Dr: Gayatri ALARCONP-BC ? Ordering Physician: Gayatri RibeiroBC ?? Date of Service: 10/24/24 ?? Procedure(s): US scrotum ?? Accession Number(s): [id number] ? cc: Nai Menendez MD; Gayatri Ribeiro-BC ? EXAMINATION: ?? US SCROTUM ? CLINICAL [...] ? Signed By: ?<Electronically signed by Jeffrey Harjeet Mendoza MD in OV> ?12/05/24 1136 ? DD/ 4 ? TD/TT: 10/24/2444 ? Yield Improvement Engineer: MSM ? Procedure Note Guy, Image - 12/05/2024 [facility] [address] [place] [address] [place] [address] Ultrasound Report Signed Patient: Antoine Fink#: [id number] 9 : 1970Acct:[id number] Age/Sex: 54 / MADM Date: 10/24/24 Loc: [facility] Attending Dr: Gayatri Ribeiro [facility] Ordering Physician: Gayatri Ribeiro [facility] Date of Service: 10/24/24 Procedure(s): US scrotum Accession Number(s): [id number] cc: Nai Menendez MD; Gayatri Ribeiro [facility] EXAMINATION: US SCROTUM CLINICAL INFORMATION: Scrotal pain. [...] by: Jeffrey Mendoza MD 12/05/2024 11:36 AM [facility] Dictated By: Jeffrey Mendoza MD Signed By: <Electronically signed by Jeffrey Mendoza MD in OV> 12/05/24 1136 DD/ 0825 TD/TT: 10/24/24 0844 Yield Improvement Engineer: [facility] External Provider IMG US PROCEDURES Final Result * POCT HGB A1C (09/25/2024 4:21 PM EST) [facility] Hemoglobin A1C 5.5 4.0 - 6.0 % QC Media Lot # [id number] Lot# Expiration Date 81, Blood 09/25/2024 4:21 PM EST Nai Menendez MD POINT OF CARE TEST ENTER/ED IT ORDERABLES Final Result * POCT Glucose (09/25/2024 4:20 PM EST) [facility] Glucose Blood, POC 126 60 - 200 mg/dL QC Media Lot # [id number] Lot# Expiration Date Blood Capillary blood specimen / Unknown 09/25/2024 4:20 PM EST Result [facility] Nai Menendez MD POINT OF CARE TEST ENTER/ED IT ORDERABLES Final Result * Magnesium (09/25/2024 3:40 PM EST) [facility] Magnesium 2.1 1.6 - 2.6 mg/dL [facility] Blood Venous blood specimen / Unknown 09/25/2024 3:40 PM EST 09/25/2024 6:27 PM EST Nai Menendez MD LAB BLOOD ORDERABLES Final Result [facility] [address] [place] [phone] * (ABNORMAL) Basic Metabolic Panel (09/25/2024 3:40 PM EST) [facility] Sodium 141 135 - 145 mmol/L [facility] Potassium 3.7 3.3 - 5.1 mmol/L [facility] Chloride 106 96 - 108 mmol/L [facility] Carbon Dioxide 27 22 - 29 mmol/L [facility] Anion Gap 12 12 - 20 [facility] Urea Nitrogen (BUN) 20(H) 9 - 16 mg/dL [facility] Creatinine, Serum 0.97 0.5 - 1.4 mg/dL [facility] Estimated Glomerular Filt Rate >60 [facility] Comment:Chronic Kidney Disea se: Estimated GFR < 60 mL/min/1.71l6Lwneeu Kidney Disease: Estimated GFR < 15 mL/min/1.73m2 Glucose 96 60 - 115 mg/dL [facility] Calcium 9.3 8.4 - 10.2 mg/dL [facility] Blood Venous blood specimen / Unknown 09/25/2024 3:40 PM EST 09/25/2024 6:27 PM EST us Nai Menendez MD LAB BLOOD ORDERABLES Final Result [facility] [address] [place] [phone] * Cologuard?? colon cancer screening (02/21/2024 7:45 AM EDT) Cologuard Result Negative Negative 03/01/20 24 3:29 AM EDT [employer] (CLIA #:[id number]) Comment: NEGATIVE TEST RESULT. A negative Cologuard [...] cancer. ??Following a negative Cologuard result, the [employer] Cancer Society and U.S. Multi-Society Task Force screening guidelines recommend a Cologuard re-screening interval of 3 years. References: [employer] Cancer Society Guideline for Colorectal Cancer Screening: https://www.cancer.org/cancer/wedbm-rzjimg-uhypms/tvveyypuf-nhgqirido-svtsgai/ac s-rec ommendations.html.; Peña DK, Ra CR, Alisa BakerK, Colorectal Cancer Screening: Recommendations for Physicians and Patients from the U.S. Multi-Society Task Force on Colorectal Cancer Screening , Am J Gastroenterology 2017; 112:7469-7292. TEST DESCRIPTION: Composite algorithmic analysis of stool [...] (Lela Jones al, N Engl J Med 2014;370(14):1900-8422.) Cologuard may produce a false negative or false positive result (no colorectal cancer or precancerous polyp present at colonoscopy follow up). A negative Cologuard test result does not guarantee the absence of CRC or advanced adenoma (pre-cancer). The current Cologuard screening interval is every 3 years. ([employer] Cancer Society and U.S. Multi-Society Task Force). Cologuard performance data in a 10,000 patient pivotal study using colonoscopy as the reference method can be accessed at the following location: www.[employer].TripMark/results. Additional description of the Cologuard test process, warnings and precautions can be found at www.cologuard.com. Stool specimen (specimen) 02/21/2024 7:45 AM EDT 02/23/2024 10:44 AM EDT Analy Chen MD LAB MOLECULAR DIAGNOSTICS ORD ERABLES Final Result Performing Organization Address City/[facility]/ZIP Co de Phone Number [employer] (CLIA #:[id number]) [place] [address], [place] [phone] * Hepatitis A,B,C Profile (02/02/2024 10:43 AM EDT) Hepatitis A IgM Nonreactive Nonreactive [facility] Comment:IgM antibodies to QUINTANILLA V not detected; does not exclude earlyacute or recovered HAV infection. ~Hepatitis B Surface Antibody NONREACTIVE Nonreactive [facility] Comment:Nonreactive: < 8.00 mIU/mL Hepatitis B Core Antibody Nonreactive Nonreactive [facility] Hepatitis C Antibody Nonreactive Nonreactive [facility] Comment:Antibodies to HCV no t detected; does not exclude early acuteHCV infection. Hepatitis B Surface Ag Negative Negative [facility] Blood Venous blood specimen / Unknown 02/02/2024 10:43 AM EDT 02/02/2024 2:10 PM EDT Analy Chen MD LAB BLOOD ORDERABLES Final Re sult Performing Organization Address [facility]/[employer] Co de Phone Number [facility] [address] [place] [phone] * HIV-1/2 Antigen and Antibodies, Fourth Generation, with Reflexes (02/02/2024 10:43 AM EDT) HIV AB/AG Nonreactive Nonreactive [facility] Comment:HIV-1 p24 Ag and/or HIV-1/HIV-2 Ab not detected.A test result that is nonreactive does not exclude thepossibility of exposure to or infection with HIV-1 and/orHIV-2. Nonreactive results in this assay for individualswith prior exposure to HIV-1 and/or HIV-2 may be due toantigen and antibody levels that are below the limit ofdetection of this assay.The [place] [employer] ([employer]) HIV Ag/Ab Combo assay result andsupplemental assay results should be interpreted inconjunction with the patient's clinical presentation,history and other laboratory results. If the results areinconsistent with clinical evidence, additional testing issuggested to confirm the result. Blood Venous blood specimen / Unknown 02/02/2024 10:43 AM EDT 02/02/2024 2:10 PM EDT us Analy Chen MD LAB BLOOD ORDERABLES Final Re sult [facility] [address] [place] [phone] * (ABNORMAL) Lipid Panel, Standard (02/02/2024 10:43 AM EDT) Pathologist [facility] Triglycerides 143 <150 mg/dL [facility] Comment:Desirable Triglyceri de: less than 150 mg/dLBorderline High Triglyceride 150-199 mg/dLHigh Triglyceride: 200-499 mg/dLVery High Triglyceride: greater than or equal to 5OO mg/dL Cholesterol 174 <200 mg/dL [facility] Comment:Desirable Cholestero l: less than 200 mg/dLBorderline High Cholesterol: 200-239 mg/dLHigh Cholesterol: greater than 239 mg/dL LDL Cholesterol Calculated 105(H) <100 mg/dL [facility] Comment:Desirable LDL: less than 100 mg/dLNear Optimal/Above Optimal LDL: 110- 129 mg/dLBorderline High LDL: 130-159 mg/dLHigh LDL: 160-189 mg/dLVery High LDL: greater than or equal to 190 mg/dL HDL Cholesterol 41 >40 mg/dL [facility] Comment:Desirable HDL: great er than 40 mg/dL Note: This HDL assay may give artificially low results in patients with liver disease. Blood Venous blood specimen / Unknown 02/02/2024 10:43 AM EDT 02/02/2024 2:10 PM EDT us Analy Chen MD LAB BLOOD ORDERABLES Final Re sult [facility] [address] [place] [phone] [phone] from Last 3 Months or Most Recently Relevant to Health Maintenance Insurance [facility] C3 DENTAL-[facility] MEDICAID STAND ADULT Care Teams Stencil Cutter Relationship Specialty Start Date End Date Nai Menendez MD [address] [place] [phone] PCP - General Internal Medicine 09/25/24 Phuong Fink Paid Search Marketing StrategistSuperintendent Drivers 12/05/24
--- OUTSIDE RECORDS SUMMARY | 2024-12-15 10:36 | XMS_ITS | Encounter Summary ---
Author Organization [employer] Address [address] [facility] 7 [place] [address] Care Team Providers Care Nut Process Helper Name Role Phone Nai Menendez MD Primary Care Provider [phone] Reason for Visit * Reason Onset Date Comments Pt1 10/10/2024 Encounter Details Date Type Department Care Team ([facility] Contact Info) Description 10/10/2024 Telephone [facility] [address] [place] [address] Nai Menendez MD [address] [place] [address] Pt1 Social History Tobacco Use Types Packs/Day [...] Y/N: Yes Provider name or facility name: [facility] Address: [address] [place] [address] [place] [address] Escort needed: Y/N: No Do you have a wheelchair: Y/N: No If yes- Manual or electric: n/a Visits: 2-3 times a month for 6 months documented in this encounter Plan of Treatment Upcoming Encounters Date Type Department Care Team ([facility] st Contact Info) Description 02/12/2025 9:00 AM EDT Office Visit [facility] [address] [place] [address] Nai Menendez MD [address] [place] [address] documented as of this encounter Visit Diagnoses Not on filedocumented in this encounter Additional Health Concerns Assessment Noted Time PHQ-9 Depression Total Score: 4 02/02/20 24 9:37 AM EDT documented as of this encounter Care Teams Nut Process Helper Relationship Specialty Start Date End Date Nai Menendez MD [address] [place] [address] PCP - General Internal Medicine 09/25/24 Phuong Fink Director Group SalesRaymond Mill Operator 12/05/24 documented as of this encounter
--- OUTSIDE RECORDS SUMMARY | 2024-12-15 10:36 | XMS_ITS | Encounter Summary ---
Author Organization [employer] Address [address] [facility] [address] [place] [address] Care Team Providers Care Glass Loading Equipment Tender Name Role Phone Nai Menendez MD Primary Care Provider [phone] Reason for Visit * Reason Onset Date Comments Medication Question 12/01/2024 Encounter Details Date Type Department Care Team ([facility] st Contact Info) Description 12/01/2024 Telephone [facility] [address] [place] [address] Nai Menendez MD [address] [place], [place] [phone] Medication Question Social History Tobacco Use Types Packs/Day Years [...] Telephone Encounter - Maritza Chandra RN - 12/04/2024 10:36 AM EST Triage call Pt has questions regarding medication prescribed on 11/30/24. Gypsum Calciner explained cetirizine 10mg for allergies/post nasal drip, remeron 7.2mg two tablets to be taken at bed time for sleep/anxiety, acetaminophen is tylenol take as prescribed, omeprazole for Gerd. Pt had no further questions and will call back if needed. Agreed with disposition. Protocol Used: Medication Question Call (Adult) Protocol-Based Disposition: Home Care Positive Triage Question: * Caller has medicine question only, adult not sick, and triager answers question * All higher-acuity triage questions were negative Care Advice Discussed: * Reasons To Call Back - You have any more questions - You become worse * Telephone Encounter - Meliton Manzo - 12/01/2024 12:09 PM EST TC from pt requesting call back to discuss medication and also pain on right groin. Pt states that they dont need Physical Therapy. Pt Contact: documented in this encounter Plan of Treatment Upcoming Encounters Date Type Department Care Team (Late st Contact Info) Description 02/12/2025 9:00 AM EDT Office Visit [facility] [address] [place] [address] Nai Menendez MD [address] [place] [address] documented as of this encounter Visit Diagnoses Not on filedocumented in this encounter Additional Health Concerns Assessment Noted Time PHQ-9 Depression Total Score: 4 02/02/20 24 9:37 AM EDT documented as of this encounter Care Teams Glass Loading Equipment Tender Relationship Specialty Start Date End Date Nai Menendez MD [address] [place] [address] PCP - General Internal Medicine 09/25/24 Phuong Fink Vacuum Drier TenderRailroad Dining Car Stewardess 12/05/24 documented as of this encounter
--- OUTSIDE RECORDS SUMMARY | 2024-12-15 10:36 | XMS_ITS | Encounter Summary ---
Author Organization [employer] Address [address] [place] [address] Care Team Providers Care At Risk Paraprofessional Name Role Phone Nai Menendez MD Primary Care Provider [phone] Encounter Details Date Type Department Care Team [...] Description 02/12/2025 9:00 AM EDT Office Visit [facility] [address] [place] [address] Nai Menendez MD [address] [place] [address] documented as of this encounter Visit Diagnoses Not on filedocumented in this encounter Additional Health Concerns Assessment Noted Time PHQ-9 Depression Total Score: 4 02/02/20 9:37 AM EDT documented as of this encounter Care Teams At Risk Paraprofessional Relationship Specialty Start Date End Date Nai Menendez MD [address] [place] [address] PCP - General Internal Medicine 09/25/24 documented as of this encounter
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
--- OUTSIDE RECORDS SUMMARY | 2024-12-15 10:36 | XMS_ITS | Encounter Summary ---
Author Organization [employer] Address [address] [facility] [address] [place] [address] Care Team Providers Care Camp Guard Name Role Phone Nai Menendez MD Primary Care Provider [phone] Encounter Details Date Type Department Care Team (Latest Contact Info) Description 12/11/2024 Travel Social History Tobacco Use Types Packs/Day [...] Description 02/12/2025 9:00 AM EDT Office Visit [facility] MED & PEDS [address] [place] [address] Nai Menendez MD [address] [place] [address] documented as of this encounter Visit Diagnoses Not on filedocumented in this encounter Additional Health Concerns Assessment Noted Time PHQ-9 Depression Total Score: 4 02/02/20 9:37 AM EDT documented as of this encounter Care Teams Camp Guard Relationship Specialty Start Date End Date Nai Menendez MD [address] [place] [address] PCP - General Internal Medicine 09/25/24 Phuong Fink Revenue Research AnalystCarding Machine Feeder 12/05/24 documented as of this encounter
--- OUTSIDE RECORDS SUMMARY | 2024-12-15 10:36 | XMS_ITS | Clinical Summary ---
Author Organization [facility] Address [address] [place] [address] Care Team Providers Care Offshore Wind Operations Manager Name Role Phone Unavailable Primary Care [...] 01/23/2017 Imm-Zoster, Recombinant (1 of 2) 01/23/2022 Eoj-NLPWD-20 (3 - season) 2024 021, 03/06/2021 Imm-Influenza (#1) 2024 Alcohol and Drug Screen 11/01/2024 Depression Annual Screen 11/01/2024 Insurance COVID19 [facility] UNINSURED TESTING AND TREATMENT FUND
--- OUTSIDE RECORDS SUMMARY | 2024-12-15 10:36 | XMS_ITS | Encounter Summary ---
Author Organization [employer] Address 75 [facility] 7t [place] [address] Care Team Providers Care Barking Machine Feeder Name Role Phone Analy Chen MD Primary Care Provider [phone] Nai Menendez MD Primary Care Provider [phone] Reason for Visit * Reason Onset Date Comments ER Follow-up 02/11/2024 Encounter Details Date Type Department Care Team (Late st Contact Info) Description 02/11/2024 Telephone [facility] MEDICINE [address] [place] [address] Analy Chen MD [address] [place], [place] [phone] ER Follow-up Social History Tobacco Use Types [...] ED visit on : Date: 02/08 Hospital: [facility] Seen for: Skin Lump had surgery on 01/26 for hernia and still had pain with a lump Patient advised will forward to team nurse for follow up documented in this encounter Plan of Treatment Upcoming Encounters Date Type Department Care Team (Late st Contact Info) Description 02/12/2025 9:00 AM EDT Office Visit [facility] MED & PEDS [address] [place] [address] Nai Menendez MD [address] [place] [address] documented as of this encounter Visit Diagnoses Not on filedocumented in this encounter Additional Health Concerns Assessment Noted Time PHQ-9 Depression Total Score: 4 02/02/20 24 9:37 AM EDT documented as of this encounter Care Teams Barking Machine Feeder Relationship Specialty Start Date End Date Analy Chen MD [address] [place] [address] PCP - General Internal Medicine 02/02/24 09/24/24 Nai Menendez MD [address] [place] [address] PCP - General Internal Medicine 09/25/24 Phuong Fink Tomahawk Weapon System OperatorAssistant Portfolio Manager 12/05/24 documented as of this encounter
--- OUTSIDE RECORDS SUMMARY | 2024-12-15 10:36 | XMS_ITS | Encounter Summary ---
Author Organization [employer] Address 75 [facility] 7 [place] [address] Care Team Providers Care Quality Review Trainer Name Role Phone Nai Menendez MD Primary Care Provider [phone] Reason for Visit * Reason Onset Date Comments recall appt 11/23/2024 Pt needs appt Encounter Details Date Type Department Care Team ([facility] st Contact Info) Description 11/23/2024 Telephone [facility] CHC MED & PEDS [address] [place], [place] [phone] Nai Menendez MD [address] [place] [address] recall appt (Pt needs appt) Social History [...] Description 02/12/2025 9:00 AM EDT Office Visit [facility] MED & PEDS [address] [place] [address] Nai Menendez MD [address] [place] [address] documented as of this encounter Visit Diagnoses Not on filedocumented in this encounter Additional Health Concerns Assessment Noted Time PHQ-9 Depression Total Score: 4 02/02/20 9:37 AM EDT documented as of this encounter Care Teams Quality Review Trainer Relationship Specialty Start Date End Date Nai Menendez MD [address] [place] [address] PCP - General Internal Medicine 09/25/24 documented as of this encounter
--- OUTSIDE RECORDS SUMMARY | 2024-12-15 10:36 | XMS_ITS | Encounter Summary ---
Author Organization [employer] Address 75 [facility] 7 [place] [address] Care Team Providers Care Feather Drying Machine Operator Name Role Phone Nai Menendez MD Primary Care Provider [phone] Reason for Visit * Reason Onset Date Comments Nurse Triage 12/11/2024 Encounter Details Date Type Department Care Team ([facility] st Contact Info) Description 12/11/[address] [facility] MEDICINE [address] [place] [address] Nai Menendez MD [address] [place] [address] Nurse Triage Social History Tobacco Use Types [...] encounter Miscellaneous Notes * Telephone Encounter - Shazia Martino RN - 12/11/2024 2:00 PM EST Call returned to Osei Fink to triage below. Reports having pain in scrotum x 1 year. Per pt had2 cortisone injections placed to groin by Urologist 11/30/24. Per pt having swelling on right side. No redness, rash or bruising. Pt denies any pain with passing urine. Pt reports bladder still feels full even after having voided normal amount. Per pt did mention to urologist and was advised not related to groin pain. Per pt does not wish to continue with that urologist. Pt denies any blood in urine. Pt advised of disposition, agrees to sick on site tomorrow with PCP. Reviewed home care advise, ER precautions and reasons to call back. Protocol Used: Scrotum Pain (Adult) Protocol-Based Disposition: See in Office or Video Visit Today Override (Final) Disposition: See in Office or Video Visit Today or Tomorrow Override Reason: No appointments available Future Appointments Date Time Provider Department Center 12/12/2024 10:45 AM Nai Menendez MD [facility] 12/25/2024 9:00 AM Jayson Phillips [facility] 02/12/2025 9:00 AM Nai Menendez MD [facility] Insurance verified as active per Real Time Eligibility in [facility]. Positive Triage Question: * Pain comes and goes (intermittent) and present > 24 hours * All higher-acuity triage questions were negative Care Advice Discussed: * Reasons To Call Back - You become worse * Telephone Encounter - Zack Miller - 12/11/2024 1:57 PM EST Symptom: Scrotum Symptoms Outcome: Talk to a nurse or provider within 15 minutes Reason: Pain in the scrotum The caller accepted this outcome. documented in this encounter Plan of Treatment Upcoming Encounters Date Type Department Care Team (Late st Contact Info) Description 02/12/2025 9:00 AM EDT Office Visit [facility] MED & PEDS [address] [place] [address] Nai Menendez MD [address] [place] [address] documented as of this encounter Visit Diagnoses Not on filedocumented in this encounter Additional Health Concerns Assessment Noted Time PHQ-9 Depression Total Score: 4 02/02/20 24 9:37 AM EDT documented as of this encounter Care Teams Feather Drying Machine Operator Relationship Specialty Start Date End Date Nai Menendez MD [address] [place] [address] PCP - General Internal Medicine 09/25/24 Phuong Fink Cold Type Composing Machine OperatorMarketing Assistant 12/05/24 documented as of this encounter
--- OUTSIDE RECORDS SUMMARY | 2024-12-15 10:36 | XMS_ITS | Encounter Summary ---
Author Organization [employer] [facility] [employer] Address 75 [facility] 7t [place] [address] Care Team Providers Care Coach Cleaner Name Role Phone Analy Chen MD Primary Care Provider [phone] Nai Menendez MD Primary Care Provider [phone] Encounter Details Date Type Department Care Team ([facility] st Contact Info) Description 06/14/2024 Orders Only [facility] MED & PEDS [address] [place], [place] [phone] Nai Menendez MD [address] [place] [address] Tremor (Primary Dx); Low TSH level Social [...] Description 02/12/2025 9:00 AM EDT Office Visit [facility] MED & PEDS [address] [place] [address] Nai Menendez MD [address] [place] [address] documented as of this encounter Visit Diagnoses Diagnosis Tremor- Primary Abnormal involuntary movements Low TSH level documented in this encounter Additional Health Concerns Assessment Noted Time PHQ-9 Depression Total Score: 4 02/02/20 24 9:37 AM EDT documented as of this encounter Care Teams Coach Cleaner Relationship Specialty Start Date End Date Analy Chen MD [address] [place] [address] PCP - General Internal Medicine 02/02/24 09/24/24 Nai Menendez MD [address] [place] [address] PCP - General Internal Medicine 09/25/24 Phuong Fink Coding Quality AnalystSetup Operator 12/05/24 documented as of this encounter
--- OUTSIDE RECORDS SUMMARY | 2024-12-15 10:36 | XMS_ITS | Clinical Summary ---
Author Organization [facility] Address [address] [place] [phone] Phone Care Team Providers Care Special Procedure Tech Name Role Phone Nai Menendez MD Primary Care Provider [phone] Social History Tobacco Use Types Packs/Day Years Used Date Smoking Tobacco: Never Assessed Sex and Gender Information Value Date Recorded Sex Assigned at Not on file Legal Sex Male 11:39 AM EDT Gender Identity Not on file Sexual Orientation Not on file Plan of Treatment Upcoming Encounters Date Type Department Care Team ([facility] Contact Info) Description 12/20/2024 8:45 AM EST Office Visit Bariatric Surgery - [address] [address] Zayra Cuevas MD [address] [address] Health Maintenance Due Date Last Done Comments DTaP,Tdap,and Td Vaccines (1 - Tdap) 01/23/1991 Hepatitis B Vaccines (1 of 3 - 19+ 3-dose series) 01/23/1991 Pneumococcal Vaccine: 50+ Ye ars (1 of 1 - PCV) 01/23/2022 Zoster Vaccines (1 of 2) 01/23/2022 COVID-19 Vaccine (2023-2 5 season) 2024 Influenza Vaccine (#1) 2024 [...] patient's age to complete this topic Meningococcal B Vacine Aged Out No lo nger eligible based on patient's age to complete [...] on patient's age to complete this topic Insurance [place]ICA[place] - [place] Care Teams Special Procedure Tech Relationship Specialty Start Date End Date Nai Menendez MD [address] [place] [address] PCP - General Internal Medicine 12/14/24
--- OUTSIDE RECORDS SUMMARY | 2024-12-15 10:36 | XMS_ITS | Encounter Summary ---
Author Organization [employer] Address 75 [facility] 7 [place] [address] Care Team Providers Care Clinical Informatics Strategist Name Role Phone Nai Menendez MD Primary Care Provider [phone] Reason for Visit * Reason Comments Care Coordination ICP Care Coordina tor Encounter Details Date Type Department Care Team ([facility] st Contact Info) Description 12/05/2024 Telephone [facility] MED & PEDS [address] [place], [place] [phone] Nai Menendez MD [address] [place], [place] [phone] Care Coordination ( ICP Real Estate Assistant) Social History Tobacco Use Types Packs/Day Years [...] AM EDT documented as of this encounter Progress Notes * Nevaeh Belle - 12/05/2024 1:13 PM EST PCP Designee has received and reviewed Care Plan from CP: Real Estate Assistant: Phuong Fink Contact Information: [phone] Care Plan scanned into patient's EHR and notification sent to PCP. documented in this encounter Plan of Treatment Upcoming Encounters Date Type Department Care Team ([facility] st Contact Info) Description 02/12/2025 9:00 AM EDT Office Visit [facility] CHC MED & PEDS [address] [place] [address] Nai Menendez MD [address] [place] [address] documented as of this encounter Visit Diagnoses Not on filedocumented in this encounter Additional Health Concerns Assessment Noted Time PHQ-9 Depression Total Score: 4 02/02/20 9:37 AM EDT documented as of this encounter Care Teams Clinical Informatics Strategist Relationship Specialty Start Date End Date Nai Menendez MD [address] [place] [address] PCP - General Internal Medicine 09/25/24 Phuong Fink Reliability TechnicianSquaring Machine Operator 12/05/24 documented as of this encounter
--- OUTSIDE RECORDS SUMMARY | 2024-12-15 10:36 | XMS_ITS | Encounter Summary ---
Author Organization [employer] Address 75 [facility] 7 [place] [address] Care Team Providers Care Medical Records Clerk Name Role Phone Nai Menendez MD Primary Care Provider [phone] Reason for Visit * Reason Onset Date Comments CHART PREP 11/29/2024 Encounter Details Date Type Department Care Team ([facility] Contact Info) Description 11/29/2024 Telephone [facility] CHC MED & PEDS [address] [place] [address] Nai Menendez MD [address] [place] [address] CHART PREP Social History Tobacco Use Types [...] Description 02/12/2025 9:00 AM EDT Office Visit [facility] CHC MED & PEDS [address] [place] [address] Nai Menendez MD [address] [place] [address] documented as of this encounter Visit Diagnoses Not on filedocumented in this encounter Additional Health Concerns Assessment Noted Time PHQ-9 Depression Total Score: 4 02/02/20 9:37 AM EDT documented as of this encounter Care Teams Medical Records Clerk Relationship Specialty Start Date End Date Nai Menendez MD [address] [place] [address] PCP - General Internal Medicine 09/25/24 documented as of this encounter
--- OUTSIDE RECORDS SUMMARY | 2024-12-15 10:36 | XMS_ITS | Encounter Summary ---
Author Organization [employer] Address 75 [facility] 7t [place] [address] Care Team Providers Care Spa Director Name Role Phone Analy Chen MD Primary Care Provider [phone] Nai Menendez MD Primary Care Provider [phone] Reason for Visit * Reason Onset Date Comments Nurse Triage 02/09/2024 Encounter Details Date Type Department Care Team (Late st Contact Info) Description 02/09/2024 Telephone [facility] MEDICINE [address] [place] [address] Analy Chen MD [address] [place] [address] Nurse Triage Social History Tobacco Use Types [...] of previous surgery. No apts available in [facility] today or tomorrow. Pt is advised to come [facility] today for provider to see Pt and [...] 9:00 AM EDT Office Visit [facility] MED & PEDS [address] [place] [address] Nai Menendez MD [address] [place] [address] documented as of this encounter Visit Diagnoses Not on filedocumented in this encounter Additional Health Concerns Assessment Noted Time PHQ-9 Depression Total Score: 4 02/02/20 24 9:37 AM EDT documented as of this encounter Care Teams Spa Director Relationship Specialty Start Date End Date Analy Chen MD [address] [place] [address] PCP - General Internal Medicine 02/02/24 09/24/24 Nai Menendez MD [address] [place] [address] PCP - General Internal Medicine 09/25/24 Phuong Fink Child Welfare WorkerOrder Entry 12/05/24 documented as of this encounter
--- OUTSIDE RECORDS SUMMARY | 2024-12-15 10:36 | XMS_ITS | Encounter Summary ---
Author Organization [employer] Address [address] [facility] 7[address] [place] [address] Care Team Providers Care Pole Framer Machine Name Role Phone Analy Chen MD Primary Care Provider [phone] Nai Menendez MD Primary Care Provider [phone] Reason for Visit * Reason Onset Date Comments Call Back Request 06/09/2024 Encounter Details Date Type Department Care Team (Late st Contact Info) Description 06/09/2024 Telephone [facility] MEDICINE [address] [place] [address] Analy Chen MD [address] [place] [address] Call Back Request Social History Tobacco Use [...] Description 02/12/2025 9:00 AM EDT Office Visit [facility] MED & PEDS [address] [place] [address] Nai Menendez MD [address] [place] [address] documented as of this encounter Visit Diagnoses Not on filedocumented in this encounter Additional Health Concerns Assessment Noted Time PHQ-9 Depression Total Score: 4 02/02/20 24 9:37 AM EDT documented as of this encounter Care Teams Pole Framer Machine Relationship Specialty Start Date End Date Analy Chen MD [address] [place] [id number] PCP - General Internal Medicine 02/02/24 09/24/24 Nai Menendez MD [address] [place] [address] PCP - General Internal Medicine 09/25/24 Phuong Fink Electric Meter RepairerCollection Teller 12/05/24 documented as of this encounter
== END 2024-12-15 09:59 | disposition home or self-care (01) ==
LOC: HO.HMGCX 09:58
PROVIDERS: PCP Internal Medicine; Visit Provider Internal Medicine
DX: R10.11 Right upper quadrant pain (principal)
CPT/HCPCS: 76700

== ENCOUNTER → 2024-12-15 10:01 | Outpatient (BNV) | payer MEDICAID, SELFPAY | PROVIDERS: PCP Internal Medicine; Visit Provider Specialist | DX: R10.11 Right upper quadrant pain (principal) | CPT/HCPCS: 76700 ==

== ENCOUNTER 2025-01-09 13:47 | Outpatient (AMB) | payer MEDICAID, SELFPAY ==
--- NOTE | 2025-01-09 14:02 | A.OFFVIS_ITS ---
Vital Signs 01/09/25 14:08 Height 5 ft 6 in Weight 155 lb BMI 25.0 Handedness Right Intake Visit Reasons: New Pt - left hip pain Intake Note: Osei is a 54 year old male who presents today as a new patient for a evaluation of his left hip pain. Patient states ongoing pain for 2 years, DOI 09/22/22. He notices that his pain is getting worse when he is getting in his car, sitting for too long, and walking. Patient expresses that his pain is on the lateral aspect of the hip and it moves to his groin. He has tried and failed a couple pain medications with no relief. Allergies No Known Allergies Allergy (Verified 01/09/25 14:07) HPI HPI New Pt - left hip pain: Details: Mr. Fink is a 54-year-old male who presents to the office today for evaluation of left hip and back pain. He reports that he has had ongoing pain for the past 2 years after he fell resulting in extreme adduction of the left lower extremity. According to the patient, during this incident he developed a left knee meniscal tear, left hip labral tear, and disc bulging of the cervical spine. He reports that his pain is worse when he is getting in a car, sitting for too long and walking for long periods of time. He does endorse some groin pain but the majority of the pain is located on the posterolateral aspect of his lower back and glute. [facility] Medical History Subclinical hyperthyroidism Palpitation Shortness of breath Chest pain Hernia No known health problems Surgical History Hx of hernia repair H/O knee surgery Family History Maternal Grandmother Heart problem Paternal Grandmother Heart problem Social History (Updated 01/09/25 @ 14:07 by Helen Mcqueen) Alcohol intake: never Patient Tobacco Use Status: Never used Tobacco Current occupational status: unemployed Review of Systems Const All systems reviewed & are unremarkable except as noted in HPI and below Physical Exam Vital Signs: BMI result Body Mass Index 25.0 Const General: cooperative, healthy appearing and no acute distress Resp Effort & Inspection: normal respiratory effort and able to speak in complete sentences Cardio Rate: regular rate Peripheral pulses: Peripheral pulses 2+ throughout Skin Lesions: no lesions Rashes: no rashes Extrem Other: Right/Left hip: Normal to inspection. No ecchymosis, erythema, or edema. Full hip ROM in all planes. Mild tenderness to palpation over the greater trochanteric bursa. Denies groin pain with internal external rotation. 5/5 strength with resisted hip flexion, knee extension, abduction, and abduction. Able to perform straight leg raise. NVI. Assessment & Plan Assessment & Plan (1) Lumbar radiculopathy: Code(s): M54.16 - Radiculopathy, lumbar region Category: Medical Plan Mr. Fink is a 54-year-old male who presents to the office today for evaluation of left hip and back pain. He reports that he has had ongoing pain for the past 2 years after he fell resulting in extreme adduction of the left lower extremity. According to the patient, during this incident he developed a left knee meniscal tear, left hip labral tear, and disc bulging of the cervical spine. He reports that his pain is worse when he is getting in a car, sitting for too long and walking for long periods of time. He does endorse some groin pain but the majority of the pain is located on the posterolateral aspect of his lower back and glute. He also reports numbness and tingling down the entire left lower extremity. While in the office today, we did discuss the role of labral tear that he reports was found on MRI imaging in the past. Unfortunately an arthroscopic labral debridement is not something that is performed in this office. However, it does not appear that his symptoms are slowly based off of this diagnosis. I do suspect that there is some lumbar spine involvement causing his pain. Therefore, I have placed a referral to Dr. Lorenzana for further evaluation and treatment. X-rays of the left hip and pelvis which were obtained while in the office today and were reviewed by me, Amairani Ellison PA-C, revealed no acute fracture dislocation. Orders: Orders XR hip LT min 2V Today M25.559 - Pain in unspecified hip Coding Level of Care Code New Pt Level 3 (87707) Diagnoses Lumbar radiculopathy M54.16
[2025-01-09 14:08] VITALS: BMI 25.0
--- OUTSIDE RECORDS SUMMARY | 2025-01-09 16:47 | XMS_ITS | Encounter Summary ---
Author Organization [employer] Address [address] [facility] 7[address] [place] [address] Care Team Providers Care Batch Freezer Operator Name Role Phone Analy Chen MD Primary Care Provider [phone] Nai Menendez MD Primary Care Provider [phone] Encounter Details Date Type Department Care Team ([facility] st Contact Info) Description 06/14/2024 Orders Only [facility] MED & PEDS [address] [place], [place] [phone] Nai Menendez MD [address] [place] [address] Tremor (Primary Dx); Low TSH level Social [...] Care Team (Late st Contact Info) Description 01/11/2025 1:30 PM EDT Office Visit [facility] MED & PEDS [address] [place] [address] Analy Chen MD [address] [place] [address] 02/12/2025 9:00 AM EDT Office Visit [facility] MED & PEDS [address] [place] [address] Nai Menendez MD [address] [place] [address] documented as of this encounter Visit Diagnoses Diagnosis Tremor- Primary Abnormal involuntary movements Low TSH level documented in this encounter Additional Health Concerns Assessment Noted Time PHQ-9 Depression Total Score: 4 02/02/20 9:37 AM EDT documented as of this encounter Care Teams Batch Freezer Operator Relationship Specialty Start Date End Date Analy Chen MD [address] [place] [address] PCP - General Internal Medicine 02/02/24 09/24/24 Nai Menendez MD [address] [place] [address] PCP - General Internal Medicine 09/25/24 Phuong Fink Set Up WorkerPlant Production Worker 12/05/24 documented as of this encounter
--- OUTSIDE RECORDS SUMMARY | 2025-01-09 16:47 | XMS_ITS | Encounter Summary ---
Author Organization [employer] Address [address] [facility] [address] [place] [address] Care Team Providers Care Nuclear Reactor Technician Name Role Phone Nai Menendez MD Primary Care Provider [phone] Reason for Visit * Reason Comments Med Refill Encounter Details Date Type Department Care Team ([facility] Contact Info) Description 12/27/2024 Refill [facility] MED & PEDS [address] [place], [place] [phone] Analy Chen MD [address] [place] [address] Anxiety; Adjustment insomnia Social History Tobacco Use Types Packs/Day Years Used Date Smoking Tobacco: Never Smokeless Tobacco: Never Alcohol Use Standard Drinks/Week Comments Never 0 (1 standard drink = 0.6 oz pur e alcohol) Depression Answer Date Recorded Patient Health Questionnaire-9 Score 10 12/25/2024 Patient Health Questionnaire-9 Score 10 12/25/2024 Last PHQ-9: Questionnaire Data Not on file 0 12/25/2024 Housing Stability Answer Date Recorded What is [...] Date Recorded Patient Health Questionnaire-2 Score 1 12/25/2024 Sex and Gender Information Value Date Recorded Sex Assigned at Male 01/19/2024 10:51 AM EDT Legal Sex Male 1:23 PM EST Gender Identity Male 01/19/2024 10:51 AM EDT Sexual Orientation Straight 01/19/2024 10 :51 AM EDT documented as of this encounter Plan of Treatment Upcoming Encounters Date Type Department Care Team (Late st Contact Info) Description 01/11/2025 1:30 PM EDT Office Visit [facility] MED & PEDS [address] [place] [address] Analy Chen MD [address] [place] [address] 02/12/2025 9:00 AM EDT Office Visit [facility] MED & PEDS [address] [place] [address] Nai Menendez MD [address] [place] [address] documented as of this encounter Visit Diagnoses Diagnosis Anxiety Anxiety state, unspecified Adjustment insomnia Insomnia, unspecified documented in this encounter Additional Health Concerns Assessment Noted Time PHQ-9 Depression Total Score: 10 025 9:07 AM EST documented as of this encounter Care Teams Nuclear Reactor Technician Relationship Specialty Start Date End Date Nai Menendez MD [address] [place] [address] PCP - General Internal Medicine 09/25/24 Phuong Fink Electrician SubstationSaddle And Side Wire Stitcher 12/05/24 documented as of this encounter
--- OUTSIDE RECORDS SUMMARY | 2025-01-09 16:47 | XMS_ITS | Encounter Summary ---
Author Organization [employer] Address [address] [facility] [address] [place] [address] Care Team Providers Care Golf Course Superintendent Name Role Phone Analy Chen MD Primary Care Provider [phone] Nai Menendez MD Primary Care Provider [phone] Reason for Visit * Reason Onset Date Comments Call Back Request 06/09/2024 Encounter Details Date Type Department Care Team (Late st Contact Info) Description 06/09/2024 Telephone [facility] MEDICINE [address] [place] [address] Analy Chen MD [address] [place] [address] Call Back Request Social History Tobacco Use [...] Description 01/11/2025 1:30 PM EDT Office Visit [facility] MED & PEDS [address] [place] [address] Analy Chen MD [address] [place] [address] 02/12/2025 9:00 AM EDT Office Visit [facility] MED & PEDS [address] [place] [address] Nai Menendez MD [address] [place] [address] documented as of this encounter Visit Diagnoses Not on filedocumented in this encounter Additional Health Concerns Assessment Noted Time PHQ-9 Depression Total Score: 4 02/02/20 9:37 AM EDT documented as of this encounter Care Teams Golf Course Superintendent Relationship Specialty Start Date End Date Analy Chen MD [address] [place] [address] PCP - General Internal Medicine 02/02/24 09/24/24 Nai Menendez MD [address] [place] [address] PCP - General Internal Medicine 09/25/24 Phuong Fink Structural Steel Trades WorkerAircraft Engine Technician 12/05/24 documented as of this encounter
--- OUTSIDE RECORDS SUMMARY | 2025-01-09 16:47 | XMS_ITS | Encounter Summary ---
Author Organization [employer] Address [address] [facility] 7 [place] [address] Care Team Providers Care Docket Specialist Name Role Phone Nai Menendez MD Primary Care Provider [phone] Reason for Visit * Reason Comments Med Refill Encounter Details Date Type Department Care Team ([facility] Contact Info) Description 01/02/[address] [facility] CHC MED & PEDS [address] [place], [place] [phone] Nai Menendez MD [address] [place] [address] Dysuria Social History Tobacco Use Types Packs/Day [...] Description 01/11/2025 1:30 PM EDT Office Visit [facility] MED & PEDS [address] [place] [address] Analy Chen MD [address] [place] [address] 02/12/2025 9:00 AM EDT Office Visit [facility] MED & PEDS [address] [place] [address] Nai Menendez MD [address] [place] [address] documented as of this encounter Visit Diagnoses Diagnosis Dysuria documented in this encounter Additional Health Concerns Assessment Noted Time PHQ-9 Depression Total Score: 10 025 9:07 AM EST documented as of this encounter Care Teams Docket Specialist Relationship Specialty Start Date End Date Nai Menendez MD [address] [place] [address] PCP - General Internal Medicine 09/25/24 Phuong Fink Fire Prevention Bureau CaptainCart Attendant 12/05/24 documented as of this encounter
--- OUTSIDE RECORDS SUMMARY | 2025-01-09 16:47 | XMS_ITS | Clinical Summary ---
Author Organization [employer] Address [address] [facility] [address] [place] [address] Care Team Providers Care Obgyn Nurse Name Role Phone Nai Menendez MD Primary Care Provider [phone] Allergies No known active allergies Medications * [...] ium Nitrate 1.1-5 % pasteIndication s:Dental caries Sixes teeth for 2 minutes, morning and night. [...] TIMES DAILY 100 g 3 024 Active chlorhexidine (Peridex) 0.12 % solutionIndicat [...] by mouth Once per day. 30 tablet 025 2025 Active Omeprazole 20 MG tablet delayed-release Indications:Gas troesophageal reflux disease without esophagitis Take 1 tablet (20 mg) by mouth Once per day. 30 tablet 3 025 Active acetaminophen (Tylenol 8 Hour) 650 MG ER tabletIndicatio ns:Severe right groin pain,Primary hypertension Take 1 tablet (650 mg) by mouth every 8 (eight) hours if needed for mild pain. Do not crush, chew, or split. 90 tablet 025 2024 Active cyclobenzaprine (Flexeril) 10 MG tablet Take 1 tablet (10 mg) by mouth 3 times daily for 10 days. 30 tablet 025 Active gabapentin (Neurontin) 300 MG capsuleIndicati ons:Left hip pain Take 1 capsule (300 mg) by mouth 3 times daily. 90 capsule 3 Active amLODIPine (Norvasc) 5 MG tabletIndicatio ns:Primary hypertension Take 1 tablet (5 mg) by mouth Once per day. 30 tablet 11 025 2025 Active mirtazapine (Remeron) 7.5 MG tabletIndicatio ns:Anxiety,Adju stment insomnia TAKE 1 TABLET(7.5 MG) BY MOUTH AT BEDTIME 30 tablet 1 Active tamsulosin (Flomax) 0.4 MG 24 hr capsuleIndicati ons:Dysuria TAKE 2 CAPSULES(0.8 MG) BY MOUTH DAILY 30 capsule 11 Active gabapentin (Neurontin) 300 MG capsule Take 300 mg by mouth 3 times daily. 024 2024 Discontinued(R eorder (will not trigger notification to Pharmacy)) tamsulosin (Flomax) 0.4 MG 24 hr capsuleIndicati ons:Dysuria Take 2 capsules (0.8 mg) by mouth Once per day. 30 capsule 11 024 2024 Discontinued cyclobenzaprine (Flexeril) 10 MG tablet Take 1 tablet (10 mg) by mouth 3 times daily for 10 days. 30 tablet 024 2024 Discontinued(R eorder (will not trigger notification to Pharmacy)) mirtazapine (Remeron) 7.5 MG tabletIndicatio ns:Anxiety,Adju stment insomnia Take 2 tablets (15 mg) by mouth at bedtime. 30 tablet 1 025 2024 Discontinued Active Problems Problem Noted Date Diagnosed Date Adjustment disorder with mixed anxiety and depre ssed mood 12/25/2024 Primary hypertension 09/25/2024 Neck pain 09/12/2024 Benign [...] organization. Date Type Department Care Team Description 01/02/2025 Orders Only Count Includes [facility] Information Management [address] [place] [phone] Darrian Freeman MD 01/02/2025 Refill [facility] [address] [place] [address] Nai Menendez MD Dysuria 12/27/2024 Travel 12/27/2024 Refill [facility] [address] [place] [address] Analy Chen MD Anxiety; Adjustment insomnia 12/21/2024 Telephone [facility] [address] [place] [address] Nai Menendez MD pre op 12/21/2024 Telephone [facility] [address] [place] [phone] Nai Menendez MD 12/20/2024 Telephone [facility] [address] [place] [phone] Nai Menendez MD Results 12/18/2024 Travel 12/12/2024 10:45 AM EST Office Visit [facility] [address] [place] [address] [phone] Nai Menendez MD Left hip pain (Primary Dx); Primary hypertension; Bulge in groin area; Severe right groin pain; Dysuria 12/11/2024 Travel 12/11/2024 Telephone [facility] [address] [place] [phone] Nai Menendez MD Nurse Triage 12/05/2024 Telephone [facility] [address], [place] [phone] Nai Menendez MD Care Coordination ([facility] [employer]) 12/01/[address] [phone] Nai Menendez MD Medication Question 11/30/2024 1:45 PM EST Office Visit [facility] [address] [place] [address] Nai Menendez MD Severe right groin pain (Primary Dx); Primary hypertension; Nasal congestion; Gastroesophageal reflux disease without esophagitis; Anxiety; Adjustment insomnia; Left hip pain; Right upper quadrant pain 11/30/2024 Travel 11/29/2024 Telephone [facility] [address] [place] [address] Nai Menendez MD CHART PREP 11/24/2024 Travel 11/23/2024 Telephone [facility] [address] [place] [address] Nai Menendez MD recall appt (Pt needs appt) 10/24/2024 Orders Only [facility] External Provider, [facility] from Last 3 Months Immunizations Name Administration [...] Description 01/11/2025 1:30 PM EDT Office Visit [facility] [address] [place] [address] Analy Chen MD [address] [place] [address] 02/12/2025 9:00 AM EDT Office Visit [facility] [address] [place] [address] Nai Menendez MD [address] [place] [address] Health Maintenance Due Date Last Done Comments [...] 10/21/2024 04/20/2024 Alcohol/Substance Use Screening 02/01/2025 02/02/2024 SDOH Screening 02/01/2025 02/02/2024 Dental Oral Exam 02/14/2025 08/15/2024, 03/15/2024 Dental X-Ray: Bitewings 03/16/2025 03/15/20, 02/09/2024 Depression Monitoring (PHQ-9) 06/24/2025, 12/25/2024 COVID-19 Vaccine (3 - 2023-2 5 season) 2025 04/03/2021, 03/06/2021 Postponed from 07/02/2024 (Patient Refused) Zoster Vaccines (1 of 2) 09/25/2025 Pos tponed from 01/23/2022 (Patient Refused) Tobacco Screening 12/12/2025 12/12/2024 Depression Screening 12/25/2025 12/25/2024, 12/25/2024 Colorectal Cancer Screening 02/20/2027 FIT DNA/Cologuard 02/20/2027 [...] Procedure Name Priority Date/Time Associated Diagnosis Comments ECG 12-LEAD Routine 01/01/2025 3:54 PM EST AMB REFERRAL TO GENERAL SURGERY Routine 12/20/2024 Bulge in groin area US ABDOMEN COMPLETE Routine 12/16/2024 8 :38 AM EST Right upper quadrant pain US SCROTUM Routine 10/24/2024 8:25 AM EST PERIODIC ORAL EVALUATION - ESTABLISHED PATIENT Routine 08/15/2024 9:30 AM EDT Periodontal disease Defective dental yarsani Symptomatic irreversible pulpitis PROPHYLAXIS - ADULT Routine [...] Recently Relevant to Health Maintenance Results * ECG 12 lead (01/01/2025 3:54 PM EST) us Historical Provider ECG ORDERABLES Final Res ult * Referral to General Surgery (12/20/2024) us Nai Menendez MD OUTPATIENT REFERRAL ORDERAB LES Final Result * US Abdomen Complete (12/16/2024 8:38 AM EST) Anatomical Region Laterality Modality Abdomen Ultrasound 12/16/2024 8:38 AM EST Narrative 12/16/2024 8:39 AM EST ? [facility] ?[address] ? [place] [address] ? Ultrasound Report ? Signed ? Patient: FinkOsei ?MR#: [id number] ?? 9 ? : 1970 ?Acct:[id number] ? Age/Sex: 54 / M ?ADM Date: 12/15/24 ? Loc: HO.HMGCX ? Attending Dr: Nai Menendez MD ? Ordering Physician: Nai Menendez MD ?? Date of Service: 12/15/24 ?? Procedure(s): US abdomen complete ?? Accession Number(s): [id number] ? cc: Nai Menendez MD ? CLINICAL HISTORY: Right upper quadrant pain ? US abdomen complete ? Comparison: None ? Findings: ?? The visualized pancreas is normal. ?? The aorta and inferior vena cava are normal caliber. ? The appearance of the liver suggests fatty infiltration. ?? There are likely benign incidental cysts in the left lobe measuring 1.3 x ?? 1.1 x 0.7 cm, 1.4 x 1.0 x 0.8 cm, and 0.3 x 0.3 x 0.2 cm ?? There is no intrahepatic bile duct dilatation. ?? The common duct is 3.0 mm in diameter. ?? The gallbladder is normal. There is no sonographic Valdes sign. ?? The main portal vein is antegrade. ? The right kidney is 10.9 cm in length. ?? The left kidney is 11.1 cm in length. ?? The spleen is normal. ?? No ascites. ? IMPRESSION: ?? 1. Hepatic steatosis. ? This document has been electronically signed by: Emiliano Roberts MD on ?? 12/16/2024 08:38:53 ? Dictated By: ?Emiliano Roberts MD ? Signed By: ?<Electronically signed by Emiliano Roberts MD in OV> ?12/16/24838 ? DD/ 7 ? TD/TT: 12/16/24 0838 ? Records And Tape Recordings Engineer: ? Procedure Note Donotdanielter, Image - 12/16/2024 [facility] [address] [place] [address] [place] [address] Ultrasound Report Signed Patient: Osei Fink#: [id number] 9 : 1970Acct:[id number] Age/Sex: 54 / MADM Date: 12/15/24 Loc: HO.HMGCX Attending Dr: Nai Menendez MD Ordering Physician: Nai Menendez MD Date of Service: 12/15/24 Procedure(s): US abdomen complete Accession Number(s): [id number] cc: Nai Menendez MD CLINICAL HISTORY: Right upper quadrant pain US abdomen complete Comparison: None Findings: The visualized pancreas is normal. The aorta and inferior vena cava are normal caliber. The appearance of the liver suggests fatty infiltration. There are likely benign incidental cysts in the left lobe measuring 1.3 x 1.1 x 0.7 cm, 1.4 x 1.0 x 0.8 cm, and 0.3 x 0.3 x 0.2 cm There is no intrahepatic bile duct dilatation. The common duct is 3.0 mm in diameter. The gallbladder is normal. There is no sonographic Valdes sign. The main portal vein is antegrade. The right kidney is 10.9 cm in length. The left kidney is 11.1 cm in length. The spleen is normal. No ascites. IMPRESSION: 1. Hepatic steatosis. This document has been electronically signed by: Emiliano Roberts MD on 12/16/2024 08:38:53 Dictated By: Emiliano Roberts MD Signed By: <Electronically signed by Emiliano Roberts MD in OV> 12/16/2439 DD/ 7 TD/TT: 12/16/24837 Records And Tape Recordings Engineer: us Nai Menendez MD IMG US PROCEDURES Edited Re sult - Final * US Scrotum (10/24/2024 8:25 AM EST) Anatomical Region Laterality Modality Body Ultrasound 10/24/2024 8:25 AM EST Narrative 12/05/2024 11:39 AM EST ? [facility] ?[address] ? [place] [address] ? Ultrasound Report ? Signed ? Patient: Osei Fink ?MR#: [id number] ?? 9 ? : 1970 ?Acct:[id number] ? Age/Sex: 54 / M ?ADM Date: 10/24/24 ? Loc: HO.HMGCX ? Attending Dr: Gayatri BOJORQUEZ ? Ordering Physician: Gayatri Ribeiro ?? Date of Service: 10/24/24 ?? Procedure(s): US scrotum ?? Accession Number(s): [id number] ? cc: Nai Menendez MD; Gayatri Ribeiro ? EXAMINATION: ?? US SCROTUM ? CLINICAL [...] signed by Jeffrey Mendoza MD in OV> ?12/05/241135 ? DD/ ? TD/TT: 10/24/24843 ? Records And Tape Recordings Engineer: MSM ? Procedure Note Guy, Angelica - 12/05/2024 [facility] [address] [place] [address] [place] [address] Ultrasound Report Signed Patient: Osei Fink#: [id number] 9 : 1970Acct:[id number] Age/Sex: 54 / MADM Date: 10/24/24 Loc: HO.HMGCX Attending Dr: Gayatri BOJORQUEZ Ordering Physician: Gayatri Ribeiro Date of Service: 10/24/24 Procedure(s): US scrotum Accession Number(s): [id number] cc: Nai Menendez MD; Gayatri Ribeiro EXAMINATION: [...] by: Jeffrey Mendoza MD 12/05/2024 11:36 AM [facility] Dictated By: Jeffrey Mendoza MD Signed By: <Electronically signed by Jeffrey Mendoza MD in OV> 12/05/24 1136 DD/ 0825 TD/TT: 10/24/24 0844 Records And Tape Recordings Engineer: SATISH [facility] External Provider IMG US PROCEDURES Final Result * Cologuard?? colon cancer screening (02/21/2024 7:45 AM EDT) Cologuard Result Negative Negative 03/01/20 3:29 AM EDT [facility] (CLIA #:[id number]) Comment: NEGATIVE TEST RESULT. A negative Cologuard [...] cancer. ??Following a negative Cologuard result, the [employer] Cancer Society and U.S. Multi-Society Task Force screening guidelines recommend a Cologuard re-screening interval of 3 years. References: [employer] Cancer Society Guideline for Colorectal Cancer Screening: https://www.cancer.org/cancer/hwdyf-mlpgns-sngjgs/gqamgmzbe-jpmbucrot-wasbpvv/ac s-rec ommendations.html.; Peña DK, Ra WILEY, Alisa BakerK, Colorectal Cancer Screening: Recommendations for Physicians and Patients from the U.S. Multi-Society Task Force on Colorectal Cancer Screening , Am J Gastroenterology 2017; 112:1462-6065. TEST DESCRIPTION: Composite algorithmic analysis of stool [...] (Lela Jones al, N Engl J Med 2014;370(14):3297-6739.) Cologuard may produce a false negative or false positive result (no colorectal cancer or precancerous polyp present at colonoscopy follow up). A negative Cologuard test result does not guarantee the absence of CRC or advanced adenoma (pre-cancer). The current Cologuard screening interval is every 3 years. ([employer] Cancer Society and U.S. Multi-Society Task Force). Cologuard performance data in a 10,000 patient pivotal study using colonoscopy as the reference method can be accessed at the following location: www.[employer].com/results. Additional description of the Cologuard test process, warnings and precautions can be found at www.bttnogimgfaverd.com. Stool specimen (specimen) 02/21/2024 7:45 AM EDT 02/23/2024 10:44 AM EDT us Analy Chen MD LAB MOLECULAR DIAGNOSTICS ORD ERABLES Final Result [facility] (CLIA #:[id number]) [place] [address], * Hepatitis A,B,C Profile (02/02/2024 10:43 AM EDT) Hepatitis A IgM Nonreactive Nonreactive [facility] Comment:IgM antibodies to QUINTANILLA V not detected; does not exclude earlyacute or recovered HAV infection. ~Hepatitis B Surface Antibody NONREACTIVE Nonreactive [facility] Comment:Nonreactive: < 8.00 mIU/mL Hepatitis B Core Antibody Nonreactive Nonreactive [facility] Hepatitis C Antibody Nonreactive Nonreactive [facility] Comment:Antibodies to HCV no t detected; does not exclude early acuteHCV infection. Hepatitis B Surface Ag Negative Negative [facility] Blood Venous blood specimen / Unknown 02/02/2024 10:43 AM EDT 02/02/2024 2:10 PM EDT us Analy Chen MD LAB BLOOD ORDERABLES Final Re sult Performing Organization Address [facility]/ZIP Co de Phone Number [facility] [address] [place] [address] [phone] * HIV-1/2 Antigen and Antibodies, Fourth Generation, with Reflexes (02/02/2024 10:43 AM EDT) HIV AB/AG Nonreactive Nonreactive [facility] Comment:HIV-1 p24 Ag and/or HIV-1/HIV-2 Ab not detected.A test result that is nonreactive does not exclude thepossibility of exposure to or infection with HIV-1 and/orHIV-2. Nonreactive results in this assay for individualswith prior exposure to HIV-1 and/or HIV-2 may be due toantigen and antibody levels that are below the limit ofdetection of this assay.The [employer] HIV Ag/Ab Combo assay result andsupplemental assay results should be interpreted inconjunction with the patient's clinical presentation,history and other laboratory results. If the results areinconsistent with clinical evidence, additional testing issuggested to confirm the result. Blood Venous blood specimen / Unknown 02/02/2024 10:43 AM EDT 02/02/2024 2:10 PM EDT Analy Chen MD LAB BLOOD ORDERABLES Final Re sult Performing Organization Address [facility]/ZIP Co de Phone Number [facility] [address] [place] [address] [phone] * (ABNORMAL) Lipid Panel, Standard (02/02/2024 10:43 AM EDT) Triglycerides 143 <150 mg/dL [facility] Comment:Desirable Triglyceri de: less than 150 mg/dLBorderline High Triglyceride 150-199 mg/dLHigh Triglyceride: 200-499 mg/dLVery High Triglyceride: greater than or equal to 5OO mg/dL Cholesterol 174 <200 mg/dL [facility] Comment:Desirable Cholestero l: less than 200 mg/dLBorderline High Cholesterol: 200-239 mg/dLHigh Cholesterol: greater than 239 mg/dL LDL Cholesterol Calculated 105(H) <100 mg/dL [facility] Comment:Desirable LDL: less than 100 mg/dLNear Optimal/Above Optimal LDL: 110- 129 mg/dLBorderline High LDL: 130-159 mg/dLHigh LDL: 160-189 mg/dLVery High LDL: greater than or equal to 190 mg/dL HDL Cholesterol 41 >40 mg/dL [facility] Comment:Desirable HDL: great er than 40 mg/dL Note: This HDL assay may give artificially low results in patients with liver disease. Blood Venous blood specimen / Unknown 02/02/2024 10:43 AM EDT 02/02/2024 2:10 PM EDT us Analy Chen MD LAB BLOOD ORDERABLES Final Re sult [facility] [address] [place] [phone] from Last 3 Months or Most Recently Relevant to Health Maintenance Insurance [facility] C3 DENT[facility] MEDICAID STAND ADULT Care Teams Obgyn Nurse Relationship Specialty Start Date End Date Nai Menendez MD [address] [place] [phone] PCP - General Internal Medicine 09/25/24 Phuong Fink Postpartum NurseCertified Nursing Assistant 12/05/24
--- OUTSIDE RECORDS SUMMARY | 2025-01-09 16:47 | XMS_ITS | Clinical Summary ---
Author Organization [facility] Address [address] [place] [address] Care Team Providers Care Brazing Machine Operator Name Role Phone Unavailable Primary [...] 01/23/2017 Imm-Zoster, Recombinant (1 of 2) 01/23/2022 [id number] (3 - season) 2024 021, 03/06/2021 Imm-Influenza (#1) 2024 Alcohol and Drug Screen 11/01/2024 Depression Annual Screen 11/01/2024 Insurance COVID19 [facility] UNINSURED TESTING AND TREATMENT FUND
--- OUTSIDE RECORDS SUMMARY | 2025-01-09 16:47 | XMS_ITS | Encounter Summary ---
Author Organization [facility] Address [address] [place] [address] Care Team Providers Care Delivery Clerk Name Role Phone Nia Menendez MD Primary Care Provider +1 [phone] Reason for Visit * Reason Comments Consult New patient Bulge In groin area Encounter Details Date Type Department Care Team ([facility] st Contact Info) Description 12/20/2024 8:45 AM EST Office Visit Bariatric Surgery - [place] [address] [place] [address] Zayra Cuevas MD [address] [place] [address] Recurrent inguinal hernia of right side without obstruction or gangrene (Primary Dx); Inguinal pain, unspecified laterality Social History Tobacco Use Types Packs/Day Years Used Date Smoking Tobacco: Never Assessed Sex and Gender Information Value Date Recorded Sex Assigned at Male 12/27/2024 2:37 PM EST Legal Sex Male 11:39 AM EDT Gender Identity Male 12/27/2024 2:37 PM EST Sexual Orientation Straight 12/27/2024 2: 37 PM EST documented as of this encounter Last Filed Vital Signs Vital Sign Reading Time Taken Comments Blood Pressure 144/88 12/20/2024 8:52 AM EST Pulse 81 12/20/2024 8:52 AM EST Temperature 37.1 ??C (98.7 ??F) 12/20/2024 8:52 AM ES T Respiratory Rate - - Oxygen Saturation - - Inhaled Oxygen Concentration - - Weight 71.7 kg (158 lb) 12/20/2024 8:52 AM EST Height 167.6 cm (5' 6 ) 12/20/2024 8:52 AM EST Body Mass Index 25.5 12/20/2024 8:52 AM EST documented in this encounter Progress Notes * Zayra Cuevas MD - 12/20/2024 8:45 AM EST Referring MD:Nai Menendez MD Osei Fink is a 54 y.o. year old male who presents for outpatient consultation regarding the management of an inguinal hernia. He has multiple complaints today. After an extensive discussion and history, it appears that he had bilateral open repair of inguinalhernias as a child (about 4 years ago). He also has a history of repair of right testicular torsion. After this he was doing well, then 2 years ago, had severe right groin pain associate with a largelump which after workup was found to be a right inguinal hernia. He underwent laparoscopic repair, however after waking up from surgery patient states that the lump was still present. Did not want toreturn to his original surgeon for any additional surgery at that time. Today he states that the pain and lump are still present. Continues to have significant pain. Thinks it's the vas deferense, causing his pain, as he found this on [employer]. Had 2 cortisone injections, bilaterally. No improvement in pain. About a month ago had U/S at [facility] which the patient states showed bilateral ing hernia. Of note, he also has a left hip labral tear. Is seeing the orthopedic surgeon in December about this. Has pain in a lot of places , so difficult for him to tell where exactly the pain is located. He does mention that he sees a lump on the right groin but none on the left, but does have pain on both sides. He is unsure if anything improves or worsens the pain. He wakes up in pain in the morning. No n/v. Does have a lot of constipation. Says he doesn't take anything for it and tries not to pushor strain. ROS: GENERAL: No significant weight loss or fever HEENT: No nose bleeds or scleral icterus NECK: No cervical or supraclavicular lymphadenopathy RESPIRATORY: No cough or shortness of breath CARDIOVASCULAR: No chest pain or palpitations GI: see HPI SKIN: No lesions, rash, jaundice HEMATOLOGY/LYMPHOLOGY No prolonged bleeding, easy bruisability or swollen nodes PAST MEDICAL HISTORY: There are no active problems to display for this patient. Orthopedic issues HTN Kidney stones, Liver cysts Fatty liver PAST SURGICAL HISTORY: No past surgical history on file. Open appendectomy Repair of right testicular torsion Laparoscopic repair of recurrent right inguinal hernia SOCIAL HISTORY: Social History Tobacco Use Smoking status: Not on file Smokeless tobacco: Not on file Substance Use Topics Alcohol use: Not on file FAMILY HISTORY: No family history on file. No family status information on file. ACTIVE MEDICATIONS: No outpatient medications have been marked as taking for the 12/20/24 encounter (Office Visit) with Zayra Cuevas MD. ALLERGIES: No Known Allergies PHYSICAL EXAM: Vitals: 12/20/24 0852 BP: (!) 144/88 Pulse: 81 Temp: 37.1 ??C (98.7 ??F) TempSrc: Temporal Weight: 71.7 kg (158 lb) Height: 1.676 m (66 ) APPEARANCE: Alert and in no acute distress. Walks with a cane, but is able to walk and sit up on the examination table without difficulty EYES: conjunctiva and sclera normal. HEART: RRR LUNG: non-labored respirations, patient is comfortable on room air without wheezing or crackles ABDOMEN: soft, non-distended. No palpable masses or organomegaly. Well healed scars from appendectomy, infraumbilical laparoscopic scar, and bilat diagonal inguinal scars. : Very tender on examination of bilateral inguinal canals. So exam is difficult, and I did not clearly appreciate any significant impulse on Valsalva either the right or left inguinal canal. Externally, starting from the right ASIS diagonally toward the inguinal canal there appears to be a thin elongated subcutaneous structure which is soft, lipomatous and nontender. EXTREMITIES: Extremities warm and well perfused without edema NEURO: Awake, alert and oriented, moves all extremities SKIN: Skin color, texture normal LABS: No results found for: WBC , HGB , HCT , MCV No results found for: NA , K , CO2 , CL , BUN , GLU , ALB , ALKPHOS , TP IMAGING: RESULT: CT Abd/Pelvis W/ IV + Oral Contrast CT Abd/Pelvis W/ IV + Oral Contrast Reason: Pain. Clinical Question(s): Pancreatitis. TECHNIQUE: Spiral CT through the abdomen and pelvis with IV contrast formatted in 3 planes. 100 cc of Omnipaque 300 was administered intravenously. This study was performed with oral contrast. Weight-based protocol using automatic tube modulation was used to optimize exposure parameters. CTDIvol Body: 8.60 mGy, DLP Body: 431 mGy*cm. COMPARISON: 11/17/2023, 11/01/2023. FINDINGS: Railroad Dispatcher View Findings, Lines and Tubes: None. Visualized Chest: Mild bibasilar atelectasis. No pleural effusion. Diaphragm: Normal. Liver: Diffuse low-attenuation throughout the liver parenchyma consistent with hepatic steatosis. No evidence of mass. Unchanged subcentimeter hypodense lesions scattered throughout the hepatic parenchyma, two of which in hepatic segment 2 (601:18) and hepatic segment 3 (601:20), demonstrate internal septations. Gallbladder: No CT evidence of gallbladder pathology. Bile ducts: No biliary ductal dilation. Spleen: Normal. Pancreas: Normal. Adrenal glands: Normal. Kidneys and ureters: No hydronephrosis, stones, or suspicious masses. Simple appearing renal cysts measuring up to 2.9 cm and the right interpolar region and additional scattered bilateral hypodensities that are too small to characterize are noted, requiring no dedicated follow up. Bladder: Normal. Reproductive organs: Unremarkable. Stomach, small bowel, and large bowel: Oral contrast reaches the rectum. No pericolonic fluid collection or inflammatory stranding. No evidence of small bowel obstruction. The stomach is normal. Appendix: Surgically absent. Peritoneum and retroperitoneum: No ascites or pneumoperitoneum. No omental or mesenteric lesions. Lymph nodes: No enlarged lymph nodes. Blood vessels: Normal. No aneurysm. No evidence of venous thrombosis. Abdominal and pelvic wall: Unremarkable. Bones: No acute abnormality. IMPRESSION: 1. No acute findings in the abdomen or pelvis. Specifically no complications of acute pancreatitis. 2. Unchanged indeterminate hypodense lesions in the left lobe of the liver with a few internal septations. Further evaluation and characterization with nonurgent MRI liver protocol can be considered. I have personally reviewed the images and I agree with this report. WSN: [id number] Ordering Physician: Gary Christie Signature Line Dictated By: Raman Deutsch MD Dictated Date/Time: 06/01/24 8:43 am Reviewed By: Kim Murillo MD Signed By: Kim Murillo MD Signed Date/Time: 06/01/24 8:48 am Transcribed By: BENNETT Transcribed Date/Time: 06/01/24 8:08 am RESULT: US Soft Tissue Pelvis/ Buttocks US Soft Tissue Pelvis/ Buttocks Reason: Pain; Right groin pain, history of right inguinal hernia repair; Clinical Question(s): Mass- Cyst vs Solid; Question recurrent right inguinal hernia COMPARISON: CT abdomen and pelvis 11/17/2023. FINDINGS: High-resolution, linear array imaging of the superficial soft tissues of the right groin was performed in the area of the patient's palpable finding. 2.6 x 3.5 x 0.9 cm fat-containing right inguinal hernia with neck measuring 1.0 cm. The hernia is observed to enlarge slightly with Valsalva maneuver. No fluid collection. IMPRESSION: 3.5 cm fat-containing right inguinal hernia. I have personally reviewed the images and I agree with this report. WSN: [id number] Ordering Physician: Pj Thomas Signature Line Dictated By: Tracy Ann MD Dictated Date/Time: 11/26/23 2:48 pm Reviewed By: Jordan Farias MD Signed By: Jordan Farias MD Signed Date/Time: 11/26/23 2:53 pm Transcribed By: BENNETT Transcribed Date/Time: 11/26/23 2:09 pm Reason For Exam RLQ abdominal pain;Other: RESULT: CT Abd/Pelvis W/ IV Contrast Only CT Abd/Pelvis W/ IV Contrast Only Hx of Present Illness: Patient reports right groin pain x 3 days. No known traumatic injury. Deniesdysuria. Reason: RLQ abdominal pain. Clinical Question(s): Obstruction; Incarcerated hernia. TECHNIQUE: Spiral CT through the abdomen and pelvis with IV contrast formatted in 3 planes. 100 cc of Omnipaque 300 was administered intravenously. This study was performed without oral contrast. Weight-based protocol using automatic tube modulation was used to optimize exposure parameters. COMPARISON: None. FINDINGS: Railroad Dispatcher View Findings, Lines and Tubes: None. Visualized Chest: Lung bases are clear. No pleural effusion. The heart is normal in size. No pericardial effusion. Diaphragm: Normal. Liver: Mildly fatty liver. Several well-circumscribed hypodense lesions scattered throughout the hepatic parenchyma, the largest measuring 1.3 cm in hepatic segment 2. Some of these probably represent represent cysts, however there are 2 with apparent internal septations (201:17, 201:21) that are te chnically indeterminate. Gallbladder: No CT evidence of gallbladder pathology. Bile ducts: No biliary ductal dilation. Spleen: Normal. Pancreas: Normal. Adrenal glands: Normal. Kidneys and ureters: 0.2 cm nonobstructing calculus in the left interpolar region (202:53). No hydronephrosis or suspicious masses. Simple appearing renal cortical and parapelvic cysts and hypodensities that are too small to characterize are noted, requiring no dedicated follow up. Bladder: Normal. Reproductive organs: Unremarkable. Note, the scrotum or testicles are not imaged on this examination. Stomach, small bowel, and large bowel: The stomach is normal. The small bowel is normal in caliber,with no evidence of bowel obstruction. The rectum is normal. Several colonic diverticula. The colonis otherwise normal. Appendix: Not seen, but no evidence of appendicitis. Peritoneum and retroperitoneum: No ascites or pneumoperitoneum. No omental or mesenteric lesions. Lymph nodes: No pathologically enlarged lymph nodes. Blood vessels: Mild vascular calcifications but no aneurysm. No evidence of venous thrombosis. Abdominal and pelvic wall: Unremarkable. No inguinal hernia is seen. Bones: No acute abnormality. IMPRESSION: No acute findings in the abdomen or pelvis. No right inguinal hernia is seen. 0.2 cm nonobstructing calculus in the interpolar region of the left kidney. No hydronephrosis. Several well-circumscribed hypodense lesions scattered throughout the hepatic parenchyma measuring up to 1.3 cm in hepatic segment 2. Two of the cystic lesions appear to contain septations and although a likely benign are technically indeterminate. Consider further characterization with nonemergent liver mass protocol MRI if these have not been previously imaged and found to be stable. Mildly fatty liver. Results were relayed by [employer] by Dr. Deutsch to Sydnie Solitario DO on 11/01/2023 6:30 AM. I have personally reviewed the images and I agree with this report. WSN: [id number] Ordering Physician: Sydnie Solitario Signature Line Dictated By: Raman Deutsch MD Dictated Date/Time: 11/01/23 7:43 am Reviewed By: Chace Gaspar MD Signed By: Chace Gaspar MD Signed Date/Time: 11/01/23 7:48 am Transcribed By: BENNETT Transcribed Date/Time: 11/01/23 6:31 am IMPRESSION: 1. Recurrent inguinal hernia of right side without obstruction or gangrene 2. Inguinal pain, unspecified laterality Plan: Inguinal hernia only found on U/S, not on CT. Osei presents with complaints of significant groin pain. His history is somewhat difficult as he continues to jump from 1 complaint to the other. From his medical record at [facility], it appears that he has seen the surgeon last summer and had been offered surgery but patient then wanted to hold off. I reviewed his imaging. Although he has had several CT scans of the abdomen and pelvis which did not reveal any hernia, he did have an ultrasound which showed a hernia recurrence on the right. Exam was difficult due to significant pain so unable to clearly correlate imaging with clinical findings. We had an extensive discussion regarding the possible etiology of his pain including the recurrent right inguinal hernia found on ultrasound, pain from mesh and nerve irritation, pain from multiple surgeries and scar tissue. On the left he also has a labral tear which may be causing referred pain to his left groin. He is seeing an orthopedist in December for this. We discussed the risks and benefits of repairing the recurrent right inguinal hernia. Since he already had both an open and laparoscopic repair and he may have a left inguinal hernia as well, I wouldrecommend a intra-abdominal approach, preferably with the robot with the goal of removing the rightinguinal mesh, and repairing the recurrent hernia with a new mesh on the right and possibly on the left is a hernia is appreciated there as well. I did discuss with the patient that it is possible that this will not improve his pain especially if due to scar tissue. Could again do a trial of injections, or possibly refer him for a neurectomy. Regarding the subcutaneous mass of the right hip, this is lateral to the inguinal canal, not associated with his hernia. Perhaps a small lipoma. Continue to observe. Finally, he continued to mention that his initial surgeon did not look into his scrotum during the herniorrhaphy, which I agreed to, this is the normal proceeding of a laparoscopic intra-abdominal hernia repair, and especially involving that I as well will not be looking into his scrotum. If he c ontinues to have pain there after surgery, will refer him to urology. I wanted him to have very clear expectations of the surgery and be aware that there is quite real possibility that even with repairing his hernia, he may continue to have significant pain. Patient agrees to proceed. He will need a preoperative evaluation by his PCP. We discussed the anticipated post-operative course, and potential complications, including but not limited to: recurrence, infection, mesh infection, urinary retention, bleeding, seroma, nerve injury, chronic pain and/or paresthesias, injury to the internal organs, injury to the spermatic cord thatmay affect fertility. We will schedule a robotic removal of right inguinal mesh, and robotic repair of recurrent right inguinal, and possible left inguinal hernia repair at the patients convenience. The signs and symptomsof incarceration were reviewed with the patient and he understands to contact the office or report to the Emergency Room if these were to occur. Medication and lab orders: No orders of the defined types were placed in this encounter. It was a pleasure seeing Osei Fink at [facility] today. The patient has been instructed to call with any additional questions or concerns. cc: Nai Menendez MD documented in this encounter Plan of Treatment Upcoming Encounters Date Type Department Care Team (Late st Contact Info) Description 01/18/2025 10:30 AM EDT Hospital Encounter [facility] OR [address] [place] [phone] Zayra Cuevas MD [address] [address] 01/18/2025 10:30 AM EDT - 01/18/2025 1:00 PM EDT Surgery [facility] OR [address] [place] [phone] Zayra Cuevas MD [address] [address] DAVINCI REPAIR RECURRENT RIGHT INGUINAL HERNIA; ? LEFT W/MESH REMOVAL OF RIGHT INGUINAL REGION [50116 (CPT??)] 02/05/2025 9:15 AM EDT Office Visit Bariatric Surgery - [place] [address] [facility] [address] [place] [address] Zayra Cuevas MD [address] [facility] [address] [place] [address] Scheduled Procedures Name Priority Associated Diagnoses Date/Ti me REPAIR HERNIA INGUINAL BILATERAL ROBOT Recurrent right inguinal hernia Hx of bilateral inguinal hernia repair 01/18/2025 10:30 AM EDT documented as of this encounter Visit Diagnoses Diagnosis Recurrent inguinal hernia of right side without obstruction or gangrene- Primary Inguinal pain, unspecified laterality Recurrent right inguinal hernia Hx of bilateral inguinal hernia repair documented in this encounter Care Teams Delivery Clerk Relationship Specialty Start Date End Date Nai Menendez MD [address] [place] [address] PCP - General Internal Medicine 12/14/24 documented as of this encounter
--- OUTSIDE RECORDS SUMMARY | 2025-01-09 16:47 | XMS_ITS | Encounter Summary ---
Author Organization [employer] Address [address] [facility] 7 [place] [address] Care Team Providers Care Group Controller Name Role Phone Nai Menendez MD Primary Care Provider [phone]- [phone] Reason for Visit * Reason Onset Date Comments Pt1 10/10/2024 Encounter Details Date Type Department Care Team ([facility] Contact Info) Description 10/10/2024 Telephone [facility] [address] [place] [address] Nai Menendez MD [address] [place] [address] Pt1 Social History Tobacco Use Types Packs/Day [...] Y/N: Yes Provider name or facility name: [facility] Physical Therapy Facility Address: [address] [place] [address] [place] [address] Escort needed: Y/N: No Do you have a wheelchair: Y/N: No If yes- Manual or electric: n/a Visits: 2-3 times a month for 6 months documented in this encounter Plan of Treatment Upcoming Encounters Date Type Department Care Team (Late st Contact Info) Description 01/11/2025 1:30 PM EDT Office Visit [facility] [address] [place] [address] Analy Chen MD [address] [place] [address] 02/12/2025 9:00 AM EDT Office Visit [facility] [address] [place] [address] Nai Menendez MD [address] [place] [address] documented as of this encounter Visit Diagnoses Not on filedocumented in this encounter Additional Health Concerns Assessment Noted Time PHQ-9 Depression Total Score: 4 02/02/20 24 9:37 AM EDT documented as of this encounter Care Teams Group Controller Relationship Specialty Start Date End Date Nai Menendez MD [address] [place] [address] PCP - General Internal Medicine 09/25/24 Phuong Fink Database SupportPathology Specialist 12/05/24 documented as of this encounter
--- OUTSIDE RECORDS SUMMARY | 2025-01-09 16:47 | XMS_ITS | Encounter Summary ---
Author Organization [facility] Address [address] [place] [address] Care Team Providers Care Tobacco Packing Machine Operator Name Role Phone Nai Menendez MD Primary Care Provider +1 [phone] Encounter Details Date Type Department Care Team (Late st Contact Info) Description 12/20/2024 Telephone General Surgery [place] [address] [address] Yolande Avendano [place] Social History Tobacco Use Types Packs/Day Years Used Date Smoking Tobacco: Never Assessed Sex and Gender Information Value Date Recorded Sex Assigned at Male 12/27/2024 2:37 PM EST Legal Sex Male 11:39 AM EDT Gender Identity Male 12/27/2024 2:37 PM EST Sexual Orientation Straight 12/27/2024 2: 37 PM EST documented as of this encounter Plan of Treatment Upcoming Encounters Date Type Department Care Team (Late st Contact Info) Description 01/18/2025 10:30 AM EDT Hospital Encounter [facility] OR [address] [place] [address] Zayra Cuevas MD [address] [address] 01/18/2025 10:30 AM EDT - 01/18/2025 1:00 PM EDT Surgery [facility] OR [address] [place] [phone] Zayra Cuevas MD [address] [address] DAVINCI REPAIR RECURRENT RIGHT INGUINAL HERNIA; ? LEFT W/MESH REMOVAL OF RIGHT INGUINAL REGION [71076 (CPT??)] 02/05/2025 9:15 AM EDT Office Visit Bariatric Surgery [place] 175 [facility] [address] [place] [address] Zayra Cuevas MD 175 [facility] [address] [place] [address] Scheduled Procedures Name Priority Associated Diagnoses Date/Ti me REPAIR HERNIA INGUINAL BILATERAL ROBOT Recurrent right inguinal hernia Hx of bilateral inguinal hernia repair 01/18/2025 10:30 AM EDT documented as of this encounter Visit Diagnoses Not on filedocumented in this encounter Care Teams Tobacco Packing Machine Operator Relationship Specialty Start Date End Date Nai Menendez MD [address] [place] [address] PCP - General Internal Medicine 12/14/24 documented as of this encounter
--- OUTSIDE RECORDS SUMMARY | 2025-01-09 16:47 | XMS_ITS | Encounter Summary ---
Author Organization [employer] Address [address] [facility] [place] [address] Care Team Providers Care Credit Administration Officer Name Role Phone Nai Menendez MD Primary Care Provider [phone] Encounter Details Date Type Department Care Team [...] Description 01/11/2025 1:30 PM EDT Office Visit [facility] [address] [place] [address] Analy Chen MD [address] [place] [address] 02/12/2025 9:00 AM EDT Office Visit [facility] [address] [place] [address] Nai Menendze MD [address] [place] [address] documented as of this encounter Visit Diagnoses Not on filedocumented in this encounter Additional Health Concerns Assessment Noted Time PHQ-9 Depression Total Score: 4 02/02/20 9:37 AM EDT documented as of this encounter Care Teams Credit Administration Officer Relationship Specialty Start Date End Date Nai Menendez MD [address] [place] [address] PCP - General Internal Medicine 09/25/24 Phuong Fink Guest Relations OfficerAssistant Merchandiser 12/05/24 documented as of this encounter
--- OUTSIDE RECORDS SUMMARY | 2025-01-09 16:47 | XMS_ITS | Encounter Summary ---
Author Organization [employer] Address [address] [facility] 7 [place] [address] Care Team Providers Care Picture Enlarger Name Role Phone Nai Menendez MD Primary Care Provider [phone] Reason for Visit * Reason Onset Date Comments Nurse Triage 12/11/2024 Encounter Details Date Type Department Care Team ([facility] st Contact Info) Description 12/11/2024 Telephone [facility] MEDICINE [address] [place] [address] Nai Menendez MD [address] [place] [address] Nurse Triage Social History Tobacco Use Types [...] Center 12/12/2024 10:45 AM Nai Menendez MD [facility] 12/25/2024 9:00 AM Jayson Phillips [facility] 02/12/2025 9:00 AM Nai Menendez MD [facility] Insurance verified as active per Real Time Eligibility in [facility]. Positive Triage Question: * Pain comes and [...] Description 01/11/2025 1:30 PM EDT Office Visit [facility] [address] [place] [address] Analy Chen MD [address] [place] [address] 02/12/2025 9:00 AM EDT Office Visit [facility] [address] [place] [address] Nai Menendez MD [address] [place] [address] documented as of this encounter Visit Diagnoses Not on filedocumented in this encounter Additional Health Concerns Assessment Noted Time PHQ-9 Depression Total Score: 4 02/02/20 24 9:37 AM EDT documented as of this encounter Care Teams Picture Enlarger Relationship Specialty Start Date End Date Nai Menendez MD [address] [place] [address] PCP - General Internal Medicine 09/25/24 Phuong Fink Horse RancherAssociate Engineer 12/05/24 documented as of this encounter
--- OUTSIDE RECORDS SUMMARY | 2025-01-09 16:47 | XMS_ITS | Clinical Summary ---
Author Organization 175 [facility] Address [address] [place] [address] Phone Care Team Providers Care Parking Analyst Name Role Phone Nai Menendez MD Primary Care Provider [phone] Allergies No known active allergies Medications amLODIPine (NORVASC) 5 mg tablet Take 1 tablet (5 mg total) by mouth daily. 12/12/2024 12/12/19 26 Active celecoxib (CeleBREX) 100 mg capsule 08/15/2024 Active cetirizine (ZyrTEC) 10 mg tablet Take 1 tablet (10 mg total) by mouth daily. 11/30/2024 11/30/19 26 Active cyclobenzaprine (FLEXERIL) 10 mg tablet Take 1 tablet (10 mg total) by mouth 3 times daily. 12/12/2024 Active gabapentin (NEURONTIN) 300 mg capsule Take 1 capsule (300 mg total) by mouth 3 times daily. 06/09/2024 Active lisinopriL (PRINIVIL,ZESTR IL) 20 mg tablet Take 1 tablet (20 mg total) by mouth 1 (one) time each day. 05/30/2024 Active omeprazole (PRILOSEC) 20 mg tablet,delayed release (DR/EC) Take 1 tablet (20 mg total) by mouth daily. 11/30/2024 Active Imitrex 25 mg tablet Take 1 tablet (25 mg total) by mouth 1 (one) time if needed. 04/06/2024 Active tamsulosin (FLOMAX) 0.4 mg 24 hr capsule Take 2 capsules (0.8 mg total) by mouth daily. 07/06/2024 Active Active Problems Problem Noted Date Diagnosed Date Recurrent right inguinal hernia 12/20/2024 Hx of bilateral inguinal hernia repair Encounters Date Type Department Care Team Description 12/20/2024 8:45 AM EST Office Visit [facility] - [place] 175 [facility] [address] [place] [address] Zayra Cuevas MD Recurrent inguinal hernia of right side without obstruction or gangrene (Primary Dx); Inguinal pain, unspecified laterality 12/20/2024 Telephone General Surgery [facility] 175 [facility] [address] [place] [address] Yolande Avendano MA from Last 3 Months Surgical History Surgery Date Site/Laterality Comments MENISCECTOMY HERNIA REPAIR Medical History Medical History Date Comments Hypertension GERD (gastroesophageal reflux disease) Liver disease Kidney stones Social History Tobacco Use Types Packs/Day Years Used Date Smoking Tobacco: Never Assessed Sex and Gender Information Value Date Recorded Sex Assigned at Male 12/27/2024 2:37 PM EST Legal Sex Male 11:39 AM EDT Gender Identity Male 12/27/2024 2:37 PM EST Sexual Orientation Straight 12/27/2024 2: 37 PM EST Obstetrics History Last Filed Vital Signs Vital Sign Reading Time Taken Comments Blood Pressure 144/88 12/20/2024 8:52 AM EST Pulse 81 12/20/2024 8:52 AM EST Temperature 37.1 ??C (98.7 ??F) 12/20/2024 8:52 AM ES T Respiratory Rate - - Oxygen Saturation - - Inhaled Oxygen Concentration - - Weight 71.7 kg (158 lb) 12/25/2024 2:00 PM EST Height 167.6 cm (5' 5.98 ) 12/25/2024 2:00 PM ES T Body Mass Index 25.51 12/25/2024 2:00 PM EST Plan of Treatment Upcoming Encounters Date Type Department Care Team (Late st Contact Info) Description 01/18/2025 10:30 AM EDT Hospital Encounter [facility] Main OR [address] [place] [address] Zayra Cuevas MD 175 [facility] [address] [place] [address] 01/18/2025 10:30 AM EDT - 01/18/2025 1:00 PM EDT Surgery [facility] Main OR [address] [place] [address] Zayra Cuevas MD [address] [address] DAVINCI REPAIR RECURRENT RIGHT INGUINAL HERNIA; ? LEFT W/MESH REMOVAL OF RIGHT INGUINAL REGION [15349 (CPT??)] 02/05/2025 9:15 AM EDT Office Visit [facility] [place] [address] [address] Zayra Cuevas MD [address] [address] Scheduled Procedures Name Priority Associated Diagnoses Date/Ti me REPAIR HERNIA INGUINAL BILATERAL ROBOT Recurrent right inguinal hernia Hx of bilateral inguinal hernia repair 01/18/2025 10:30 AM EDT Health Maintenance Due Date Last Done Comments Hepatitis A Vaccines (1 of 2 - Risk 2-dose series) 01/23/1991 Hepatitis B Vaccines (1 of 3 - 19+ 3-dose series) 01/23/1991 Pneumococcal Vaccine: 50+ Years (1 of 1 - PCV) 01/23/2022 Zoster Vaccines (1 of 2) 01/23/2022 COVID-19 Vaccine (3 - 2023-2 5 season) 2024 04/03/2021, 03/06/2021 Influenza Vaccine (#1) 2024 Hepatitis C Screening 08/09/2024 Social Influencers of Health Screening 08/09/2024 Depression Screening 02/01/2025 02/02/2024 Hypertension/CHF/CAD Annual BMP Blood Test 09/25/2025 09/25/2024 Colorectal Cancer Screening: FIT-DNA (Cologuard) 02/20/2027 02/21/2024 Cholesterol Screening (Lipid Panel) 02/01/2029 02/02/2024 DTaP,Tdap,and Td Vaccines (2 - Td or Tdap) 09/25/2034 09/25/2024 HIV Screening Completed 02/02/2024 HIB Vaccines Aged Out [...] age to complete this topic Pneumococcal Vaccine: Pediatrics (0 to 5 Years) and At-Risk Patients (6 to 64 Years) Aged Out No longer eligible b ased on patient's age to complete this topic RSV Immunization Patients Under 20 months Aged Out No longer eligible b ased on patient's age to complete this topic Varicella Vaccines Aged Out No longer eligible based on patient's age to complete this topic Procedures Procedure Name Priority Date/Time Associated Diagnosis Comments PROCEDURAL ECG Routine 01/01/2025 11:22 AM EST from Last 3 Months Results * ECG 12 lead - Procedural (No Charge) (01/01/2025 11:22 AM EST) Ventricular Rate ECG 69 BPM GEMUSE Atrial Rate 69 BPM GEMUSE P-R Interval 148 ms GEMUSE QRS Duration 104 ms GEMUSE Q-T Interval 370 ms GEMUSE QTc 396 ms GEMUSE P Wave [place] 58 degrees GEMUSE R [place] 6 degrees GEMUSE T [place] 42 degrees GEMUSE ECG Interpretation Normal sinus rhythm Normal ECG When compared with ECG of 23-MAY-2024 14:03, QRS axis Shifted right Confirmed by Edgar CHEW JOHN ([id number]) on 01/01/2025 8:08:21 PM GEMUSE 01/01/2025 11:2 2 AM EST 01/01/2025 8:08 PM EST us Zayra Cuevas MD ECG ORDERABLES Final R esult GEMUSE from Last 3 Months Insurance MEDICAID - [place] Care Teams Parking Analyst Relationship Specialty Start Date End Date Nai Menendez MD [address] [place] [address] PCP - General Internal Medicine 12/14/24
--- OUTSIDE RECORDS SUMMARY | 2025-01-09 16:47 | XMS_ITS | Encounter Summary ---
Author Organization [employer] Address [address] [facility] [address] 7[address] [place] [address] Care Team Providers Care Vat Packer Name Role Phone Nai Menendez MD Primary Care Provider [phone] Encounter Details Date Type Department Care Team (Latest Contact Info) Description 12/27/2024 Travel Social History Tobacco Use Types Packs/Day [...] Visit [facility] [address] [place] [address] Analy Chen MD [address] [place] [address] 02/12/2025 9:00 AM EDT Office Visit [facility] [address] [place] [address] Nai Menendez MD 505 [place] [address] documented as of this encounter Visit Diagnoses Not on filedocumented in this encounter Additional Health Concerns Assessment Noted Time PHQ-9 Depression Total Score: 10 025 9:07 AM EST documented as of this encounter Care Teams Vat Packer Relationship Specialty Start Date End Date Nai Menendez MD [address] [place] [address] PCP - General Internal Medicine 09/25/24 Phuong Fink Central Sterilization TechnicianTechnology Trainer 12/05/24 documented as of this encounter
--- OUTSIDE RECORDS SUMMARY | 2025-01-09 16:47 | XMS_ITS | Encounter Summary ---
Author Organization [employer] Address 75 [facility] 7 [place] [address] Care Team Providers Care Pile Driver Operator Barge Mounted Name Role Phone Nai Menendez MD Primary Care Provider [phone] Reason for Visit * Reason Onset Date Comments pre op 12/21/2024 Encounter Details Date Type Department Care Team ([facility] Contact Info) Description 12/21/2024 Telephone [facility] MED & PEDS [address] [place] [address] Nai Menendez MD [address] [place] [address] pre op Social History Tobacco Use Types Packs/Day Years [...] encounter Miscellaneous Notes * Telephone Encounter - Josef Muhammad - 12/22/2024 12:13 PM EST Pt called in regarding missed call... Advised of pre-op scheduled on 01/[address] Chen * Telephone Encounter - Sima Ferraro - 12/21/2024 12:50 PM EST Date of Surgery: 01/18/25 Surgical procedure being done: repair of recurrence of hernia with removal of old mesh Type of anesthesia: general anesthesia Lab needed: Yes EKG: Yes Surgeon's name: Facility name: [facility]. Procedure will be done at [facility] Surgeon's office number: [phone] Surgeon's office fax number: [phone] Contact name (person you spoke with): Kim Last office note from surgeon requested: No Send Message to Sima Ferraro and Josef Muhammad documented in this encounter Plan of Treatment Upcoming Encounters Date Type Department Care Team ([facility] st Contact Info) Description 01/11/2025 1:30 PM EDT Office Visit [facility]EDS [address] [place], [place] [id number] Analy Chen MD [address] [place] [address] 02/12/2025 9:00 AM EDT Office Visit [facility] MED & PEDS [address] [place] [address] Nai Menendez MD [address] [place] [address] documented as of this encounter Visit Diagnoses Not on filedocumented in this encounter Additional Health Concerns Assessment Noted Time PHQ-9 Depression Total Score: 4 02/02/20 24 9:37 AM EDT documented as of this encounter Care Teams Pile Driver Operator Barge Mounted Relationship Specialty Start Date End Date Nai Menendez MD [address] [place] [address] PCP - General Internal Medicine 09/25/24 Phuong Fink Lyft DriverClient Service Representative 12/05/24 documented as of this encounter
--- OUTSIDE RECORDS SUMMARY | 2025-01-09 16:47 | XMS_ITS | Encounter Summary ---
Author Organization [employer] Address 75 [facility] 7t [place] [address] Care Team Providers Care Asphalt Tamping Machine Operator Name Role Phone Nai Menendez MD Primary Care Provider [phone] Encounter Details Date Type Department Care Team (Late st Contact Info) Description 12/21/2024 Telephone [facility] MEDICINE [address] [place] [address] Nai Menendez MD 505 [place], [place] [id number] Social History Tobacco Use Types Packs/Day Years [...] 01/11/2025 1:30 PM EDT Office Visit [facility] [address] [place] [address] Analy Chen MD [address] [place] [address] 02/12/2025 9:00 AM EDT Office Visit [facility] [address] [place] [address] Nai Menendez MD [address] [place] [address] documented as of this encounter Visit Diagnoses Not on filedocumented in this encounter Additional Health Concerns Assessment Noted Time PHQ-9 Depression Total Score: 4 02/02/20 9:37 AM EDT documented as of this encounter Care Teams Asphalt Tamping Machine Operator Relationship Specialty Start Date End Date Nai Menendez MD [address] [place] [address] PCP - General Internal Medicine 09/25/24 Phuong Fink Assistant Professor Of BusinessAssembler Dielectric Heater 12/05/24 documented as of this encounter
--- OUTSIDE RECORDS SUMMARY | 2025-01-09 16:47 | XMS_ITS | Encounter Summary ---
Author Organization [employer] Address 75 [facility] 7 [place] [address] Care Team Providers Care Product Development Manager Name Role Phone Nai Menendez MD Primary Care Provider [phone] Reason for Referral * Consultation (Routine) - Authorized Specialty Diagnoses / Procedures Referred By Rolando leyva Referred To Contact Urology Diagnoses Bulge in groin area Severe right groin pain Dysuria Nai Menendez MD [address] [place] [address] Phone: tel: fax: [facility] [address] [place] [address] Phone: tel: fax: Referral ID Status Reason Start Date Expiration Date Visits Requested Visits Authorized [id number] Authorized Specialty Services Required 12/12/2024 12/12/2025 1 1 * Consultation (Routine) - Closed Specialty Diagnoses / Procedures Referred By Rolando leyva Referred To Contact General Surgery Diagnoses Bulge in groin area Nai Menendez MD [address] [place] [address] Phone: tel: fax: [address] Phone: tel: fax: Referral ID Status Reason Start Date Expiration Date V isits Requested Visits Authorized [id number] Closed Specialty Services Required 12/12/2024 12/12/2025 1 1 Reason for Visit * Reason Comments Groin Pain Encounter Details Date Type Department Care Team ([facility] st Contact Info) Description 12/12/2024 10:45 AM EST Office Visit [facility] MED & PEDS [address] [place] [address] Nai Menendez MD [address] [place] [address] Left hip pain (Primary Dx); Primary hypertension; [...] CONSTIPATION Sod Fluoride-Potassium Nitrate 1.1-5 % paste [place] teeth for 2 minutes, morning and night. [...] mg) by mouth Once per day. 30 [id number] [DISCONTINUED] cyclobenzaprine (Flexeril) 10 MG tablet Take [...] Description 01/11/2025 1:30 PM EDT Office Visit [facility] [address] [place] [address] Analy Chen MD [address] [place] [address] 02/12/2025 9:00 AM EDT Office Visit [facility] [address] [place] [address] Nai Menendez MD [address] [place] [address] Scheduled Referrals Name Type Priority Associated Diagnoses Orde r Schedule Referral to Urology Outpatient Referral Routine Bulge in groin area Severe right groin pain Dysuria Expected: 12/12/2024 (Approximate), Expires: 12/12/2025 documented as of this encounter Procedures Procedure Name Priority Date/Time Associated Diagnosis Comments AMB REFERRAL TO GENERAL SURGERY Routine Bulge in groin area documented in this encounter Results * Referral to General Surgery (12/20/2024) us Nai Menendez MD OUTPATIENT REFERRAL ORDERAB LES Final Result documented in this encounter Visit Diagnoses Diagnosis Left hip pain- Primary Pain in joint, pelvic region and thigh Primary hypertension Unspecified essential hypertension Bulge in groin area Severe right groin pain Abdominal pain, right lower quadrant Dysuria documented in this encounter Additional Health Concerns Assessment Noted Time PHQ-9 Depression Total Score: 4 02/02/20 24 9:37 AM EDT documented as of this encounter Care Teams Product Development Manager Relationship Specialty Start Date End Date Nai Menendez MD [address] [place] [address] PCP - General Internal Medicine 09/25/24 Phuong Fink Syrup Maker CookWeb Applications Developer 12/05/24 documented as of this encounter
--- OUTSIDE RECORDS SUMMARY | 2025-01-09 16:47 | XMS_ITS | Encounter Summary ---
Author Organization [employer] Address [address] [facility] 7t [place] [address] Care Team Providers Care Decay Control Operator Name Role Phone Nai Menendez MD Primary Care Provider [phone] Encounter Details Date Type Department Care Team (Latest Contact Info) Description 12/18/2024 Travel Social History Tobacco Use Types Packs/Day [...] Description 01/11/2025 1:30 PM EDT Office Visit [facility] MED & PEDS [address] [place] [address] Analy Chen MD [address] [place] [address] 02/12/2025 9:00 AM EDT Office Visit [facility] MED & PEDS [address] [place] [address] Nai Menendez MD [address] [place] [address] documented as of this encounter Visit Diagnoses Not on filedocumented in this encounter Additional Health Concerns Assessment Noted Time PHQ-9 Depression Total Score: 4 02/02/20 9:37 AM EDT documented as of this encounter Care Teams Decay Control Operator Relationship Specialty Start Date End Date Nai Menendez MD [address] [place] [address] PCP - General Internal Medicine 09/25/24 Phuong Fink Speedometer InspectorDisplay Artist 12/05/24 documented as of this encounter
--- OUTSIDE RECORDS SUMMARY | 2025-01-09 16:47 | XMS_ITS | Encounter Summary ---
Author Organization [employer] Address 75 [facility] 7t [place] [address] Care Team Providers Care Registered Midwife Name Role Phone Analy Chen MD Primary Care Provider [phone] Nai Menendez MD Primary Care Provider [phone] Reason for Visit * Reason Onset Date Comments Nurse Triage 02/09/2024 Encounter Details Date Type Department Care Team (Late st Contact Info) Description 02/09/2024 Telephone [facility] MEDICINE [address] [place] [address] Analy Chen MD [address] [place] [address] Nurse Triage Social History Tobacco Use Types [...] of previous surgery. No apts available in [facility] today or tomorrow. Pt is advised to come [facility] today for provider to see Pt and [...] Description 01/11/2025 1:30 PM EDT Office Visit [facility] MED & PEDS [address] [place] [address] Analy Chen MD [address] [place] [address] 02/12/2025 9:00 AM EDT Office Visit [facility] MED & PEDS [address] [place] [address] Nai Menendez MD [address] [place] [address] documented as of this encounter Visit Diagnoses Not on filedocumented in this encounter Additional Health Concerns Assessment Noted Time PHQ-9 Depression Total Score: 4 02/02/20 24 9:37 AM EDT documented as of this encounter Care Teams Registered Midwife Relationship Specialty Start Date End Date Analy Chen MD [address] [place] [address] PCP - General Internal Medicine 02/02/24 09/24/24 Nai Menendez MD [address] [place] [address] PCP - General Internal Medicine 09/25/24 Phuong Fink Construction Project CoordinatorPerformance Improvement Director 12/05/24 documented as of this encounter
--- OUTSIDE RECORDS SUMMARY | 2025-01-09 16:47 | XMS_ITS | Encounter Summary ---
Author Organization [employer] Address 75 [facility] 7 [place] [address] Care Team Providers Care Casino Slot Supervisor Name Role Phone Nai Menendez MD Primary Care Provider [phone] Reason for Visit * Reason Onset Date Comments Results 12/20/2024 Encounter Details Date Type Department Care Team ([facility] Contact Info) Description 12/20/2024 Telephone [facility] MED & PEDS [address] [place], [place] [phone] Nai Menendez MD [address] [place] [address] Results Social History Tobacco Use Types Packs/Day Years [...] encounter Miscellaneous Notes * Telephone Encounter - Adenike Zamorano RN - 12/20/2024 6:09 PM EST TC placed to patient and the message below was discussed, pt advised to reduce fatty foods, red meat, alcohol, APAP if taking regularly ( patient states he does not) discussed increasing exercise, fruits, vegetables. Patient states that he saw a general surgeon has 2 hernia and is being scheduled for surgery which he may need a pre-op. Patient advised to contact [facility] for an apt if pre-op needed and to focus on diet right now after surgery and healing exercise program. ----- Message from Nai Menendez MD sent at 12/19/2024 2:59 PM EST ----- Please call. The ultrasound of the abdomen reveals fatty infiltration of the liver. Please advise patient to avoid any hepatotoxic products/medication, to be on a healthy diet with regular exercise as tolerated. Goal: 150 minutes of low impact exercise a week ----- Message ----- From: Shani, Ris Results In Sent: 12/16/2024 8:40 AM EST To: Nai Menendez MD documented in this encounter Plan of Treatment Upcoming Encounters Date Type Department Care Team (Late st Contact Info) Description 01/11/2025 1:30 PM EDT Office Visit [facility] MED & PEDS [address] [place] [address] Analy Chen MD [address] [place] [address] 02/12/2025 9:00 AM EDT Office Visit [facility] MED & PEDS [address] [place] [address] Nai Menendez MD [address] [place] [address] documented as of this encounter Visit Diagnoses Not on filedocumented in this encounter Additional Health Concerns Assessment Noted Time PHQ-9 Depression Total Score: 4 02/02/20 24 9:37 AM EDT documented as of this encounter Care Teams Casino Slot Supervisor Relationship Specialty Start Date End Date Nai Menendez MD [address] [place] [address] PCP - General Internal Medicine 09/25/24 Phuong Fink Pipe JeeperCasting Sorter 12/05/24 documented as of this encounter
--- OUTSIDE RECORDS SUMMARY | 2025-01-09 16:47 | XMS_ITS | Encounter Summary ---
Author Organization [employer] Address 75 [facility] 7t [place] [address] Care Team Providers Care Lead Pl Sql Developer Name Role Phone Analy Chen MD Primary Care Provider [phone] Nai Menendez MD Primary Care Provider [phone] Reason for Visit * Reason Onset Date Comments Nurse Triage 09/12/2024 Encounter Details Date Type Department Care Team (Late st Contact Info) Description 09/12/[address] [facility] MEDICINE [address] [place] [address] Analy Chen MD [address] [place] [address] Nurse Triage Social History Tobacco Use Types [...] motrin for pain which only helps a little. Pt is also using a heating pad on [...] 01/11/2025 1:30 PM EDT Office Visit [facility] MED & PEDS [address] [place] [address] Analy Chen MD 505 [place] [address] 02/12/2025 9:00 AM EDT Office Visit [facility] MED & PEDS [address] [place] [address] Nai Menendez MD [address] [place] [address] documented as of this encounter Visit Diagnoses Not on filedocumented in this encounter Additional Health Concerns Assessment Noted Time PHQ-9 Depression Total Score: 4 02/02/20 9:37 AM EDT documented as of this encounter Care Teams Lead Pl Sql Developer Relationship Specialty Start Date End Date Analy Chen MD [address] [place] [address] PCP - General Internal Medicine 02/02/24 09/24/24 Nai Menendez MD [address] [place] [address] PCP - General Internal Medicine 09/25/24 Phuong Fink Pressing Machine OperatorBlow Molding Machine Tender 12/05/24 documented as of this encounter
--- OUTSIDE RECORDS SUMMARY | 2025-01-09 16:47 | XMS_ITS | Encounter Summary ---
Author Organization [employer] Address 75 [facility] 7t [place] [address] Care Team Providers Care Car Dumper Name Role Phone Analy Chen MD Primary Care Provider [phone] Nai Menendez MD Primary Care Provider [phone] Reason for Visit * Reason Onset Date Comments ER Follow-up 02/11/2024 Encounter Details Date Type Department Care Team (Late st Contact Info) Description 02/11/2024 Telephone [facility] [address] [place] [address] Analy Chen MD 505 [place], [place] [phone] ER Follow-up Social History Tobacco Use Types [...] ED visit on : Date: 02/08 Hospital: [facility] Seen for: Skin Lump had surgery on 01/26 for hernia and still had pain with a lump Patient advised will forward to team nurse for follow up documented in this encounter Plan of Treatment Upcoming Encounters Date Type Department Care Team (Late st Contact Info) Description 01/11/2025 1:30 PM EDT Office Visit [facility] 505 [place] [address] Analy Chen MD 505 [facility] [place] [address] 02/12/2025 9:00 AM EDT Office Visit [facility] 505 [facility] [place] [address] Nai Menendez MD 505 [facility] [place] [address] documented as of this encounter Visit Diagnoses Not on filedocumented in this encounter Additional Health Concerns Assessment Noted Time PHQ-9 Depression Total Score: 4 02/02/20 24 9:37 AM EDT documented as of this encounter Care Teams Car Dumper Relationship Specialty Start Date End Date Analy Chen MD [address] [place] [address] [place] [address] PCP - General Internal Medicine 02/02/24 09/24/24 Nai Menendez MD [address] [place], [place] [address] [address] PCP - General Internal Medicine 09/25/24 Phuong Fink Plate RollerFabric Lay Out Worker 12/05/24 documented as of this encounter
--- OUTSIDE RECORDS SUMMARY | 2025-01-09 16:47 | XMS_ITS | Encounter Summary ---
Author Organization [employer] Address 75 [facility] [address] [address] Care Team Providers Care Job Order Clerk Name Role Phone Analy Chen MD Primary Care Provider [phone] Nai Menendez MD Primary Care Provider [phone] Reason for Referral * Consultation (Routine) - Closed Specialty Diagnoses / Procedures Referred By Contac t Referred To Contact Cardiology Diagnoses Primary hypertension Other chest pain Nai Menendez MD [address] [place] [address] Phone: tel: fax: Stephan Batista MD [address] [place] [address] Phone: tel: fax: Referral ID Status Reason Start Date Expiration Date V isits Requested Visits Authorized [id number] Closed Specialty Services Required 04/17/2024 04/17/2025 1 1 Encounter Details Date Type Department Care Team (Late st Contact Info) Description 04/17/2024 Orders Only [facility] [address] [place] [address] [phone] Nai Menendez MD [address] [place] [address] Primary hypertension (Primary Dx); Other chest pain [...] Description 01/11/2025 1:30 PM EDT Office Visit [facility] MED & PEDS 505 [place] [address] Analy Chen MD 505 [place] [address] 02/12/2025 9:00 AM EDT Office Visit [facility]ED[facility] [address] [place] [address] Nai Menendez MD 505 [place] [address] Scheduled Referrals Name Type Priority Associated Diagnoses [...] documented as of this encounter Care Teams Job Order Clerk Relationship Specialty Start Date End Date Analy Chen MD 505 [place] [address] PCP - General Internal Medicine 02/02/24 09/24/24 Nai Menendez MD 505 [place] [address] PCP - General Internal Medicine 09/25/24 Phuong Fink Summer AssociateCommunity Arts Centre Manager 12/05/24 documented as of this encounter
--- OUTSIDE RECORDS SUMMARY | 2025-01-09 16:47 | XMS_ITS | Encounter Summary ---
Author Organization [employer] Address 75 [facility] 7t [place] [address] Care Team Providers Care E Commerce Solution Architect Name Role Phone Nai Menendez MD Primary Care Provider [phone] Encounter Details Date Type Department Care Team (Late st Contact Info) Description 01/02/2025 Orders Only [facility] [address] [place] [address] ProviderDarrian MD Social History Tobacco Use Types Packs/Day Years [...] Description 01/11/2025 1:30 PM EDT Office Visit [facility] MED & PEDS 505 [place] [address] Analy Chen MD 505 [place] [address] 02/12/2025 9:00 AM EDT Office Visit [facility] MED [facility]ED[facility] 505 [place] [address] Nai Menendez MD 505 [place] [address] documented as of this encounter Procedures Procedure Name Priority Date/Time Associated Diagnosis Comments ECG 12-LEAD Routine 01/01/2025 3:54 PM EST documented in this encounter Results * ECG 12 lead (01/01/2025 3:54 PM EST) us Historical Provider ECG ORDERABLES Final Res ult documented in this encounter Visit Diagnoses Not on filedocumented in this encounter Additional Health Concerns Assessment Noted Time PHQ-9 Depression Total Score: 10 025 9:07 AM EST documented as of this encounter Care Teams E Commerce Solution Architect Relationship Specialty Start Date End Date Nai Menendez MD 505 [place] [address] PCP - General Internal Medicine 09/25/24 Phuong Fink Vallez Filter OperatorCivil Division Commander Deputy Sheriff 12/05/24 documented as of this encounter
--- OUTSIDE RECORDS SUMMARY | 2025-01-09 16:47 | XMS_ITS | Encounter Summary ---
Author Organization [employer] Address 75 [facility] 7 [place] [address] Care Team Providers Care Lens Block Gauger Name Role Phone Nai Menendez MD Primary Care Provider [phone] Reason for Visit * Reason Onset Date Comments Medication Question 12/01/2024 Encounter Details Date Type Department Care Team ([facility] st Contact Info) Description 12/01/2024 Telephone [facility]INE 230 [place] [address] Nai Menendez MD 505 [place], [place] [phone] Medication Question Social History Tobacco Use Types [...] has questions regarding medication prescribed on 11/30/24. Dairy Truck Driver explained cetirizine 10mg for allergies/post nasal drip, [...] PM EDT Office Visit [facility] [address] [place] [address] Analy Chen MD 505 [place] [address] 02/12/2025 9:00 AM EDT Office Visit [facility] [address] [place] [address] Nai Menendez MD 505 [place] [address] documented as of this encounter Visit Diagnoses Not on filedocumented in this encounter Additional Health Concerns Assessment Noted Time PHQ-9 Depression Total Score: 4 02/02/20 24 9:37 AM EDT documented as of this encounter Care Teams Lens Block Gauger Relationship Specialty Start Date End Date Nai Menendez MD 505 [place] [address] PCP - General Internal Medicine 09/25/24 Phuong Fink Geological SpecialistTopline Beading Machine Tender 12/05/24 documented as of this encounter
== END 2025-01-09 14:43 | disposition home or self-care (01) ==
LOC: HO.HOS 13:48
PROVIDERS: PCP Internal Medicine; Visit Provider Physician Assistant
DX: M54.16 Radiculopathy, lumbar region (principal); M25.552 Pain in left hip
CPT/HCPCS: 99203

== ENCOUNTER → 2025-01-09 13:51 | Outpatient (BNV) | payer MEDICAID, SELFPAY | PROVIDERS: Visit Provider Radiology Diagnostic Radiology | DX: M25.552 Pain in left hip (principal) | CPT/HCPCS: 73502 ==

== ENCOUNTER 2025-01-09 15:09 | Outpatient (REF) | payer MEDICAID, SELFPAY ==
--- NOTE | ~2025-01-09 | XR_ITS ---
EXAMINATION: XR HIP 2 OR MORE VIEWS LEFT HISTORY: M25.559 - Pain in unspecified hip COMPARISON: Comparison is made with the prior examination dated 10/14/2022. FINDINGS: A single AP view of the pelvis and an additional view of the left hip are submitted. Osseous mineralization is normal. There is no fracture or dislocation. There is mild superior joint space narrowing. The soft tissues are unremarkable. XR/XR hip LT min 2V IMPRESSION: Mild superior joint space narrowing. Electronically signed by: Gopal Martinez MD 01/10/2025 08:11 AM EDT
--- OUTSIDE RECORDS SUMMARY | 2025-01-10 17:51 | XMS_ITS | Encounter Summary ---
Author Organization [employer] Address 75 [facility] 7 [place] [address] Care Team Providers Care Horticultural Farm Manager Name Role Phone Nai Menendez MD Primary Care Provider [phone] Reason for Referral * Consultation (Routine) - Authorized Specialty Diagnoses / Procedures Referred By Rolando leyva Referred To Contact Urology Diagnoses Bulge in groin area Severe right groin pain Dysuria Nai Menendez MD [address] [place] [address] Phone: tel: fax: [facility] [address] [place] [address] Phone: tel: fax: Referral ID Status Reason Start Date Expiration Date Visits Requested Visits Authorized [id number] Authorized Specialty Services Required 12/12/2024 12/12/2025 1 1 * Consultation (Routine) - Closed Specialty Diagnoses / Procedures Referred By Rolando leyva Referred To Contact General Surgery Diagnoses Bulge in groin area Nai Menendez MD [address] [place] [address] Phone: tel: fax: [address] Phone: tel: fax: Referral ID Status Reason Start Date Expiration Date V isits Requested Visits Authorized [id number] Closed Specialty Services Required 12/12/2024 12/12/2025 1 1 Reason for Visit * Reason Comments Groin Pain Encounter Details Date Type Department Care Team ([facility] st Contact Info) Description 12/12/2024 10:45 AM EST Office Visit [facility]S 505 [place] [address] Nai Menendez MD 505 [place] [address] Left hip pain (Primary Dx); Primary hypertension; [...] CONSTIPATION Sod Fluoride-Potassium Nitrate 1.1-5 % paste Cornelius teeth for 2 minutes, morning and night. [...] mg) by mouth Once per day. 30 [id number] [DISCONTINUED] cyclobenzaprine (Flexeril) 10 MG tablet Take [...] Visit [facility] [address] [place] [address] Analy Chen MD [address] [place] [address] 02/12/2025 9:00 AM EDT Office Visit [facility] 505 [place] [address] Nai Menendez MD 505 [place] [address] Scheduled Referrals Name Type Priority Associated Diagnoses [...] documented as of this encounter Care Teams Horticultural Farm Manager Relationship Specialty Start Date End Date Nai Menendez MD [address] [place] [address] PCP - General Internal Medicine 09/25/24 Phuong Fink Internet Project ManagerAix Architect 12/05/24 documented as of this encounter
--- OUTSIDE RECORDS SUMMARY | 2025-01-10 17:51 | XMS_ITS | Clinical Summary ---
Author Organization [employer] Address [address] [facility] 7t [place] [address] Care Team Providers Care Auto Seat Cover Installer Name Role Phone Nai Menendez MD Primary Care Provider [phone] Allergies No known active allergies Medications * [...] ium Nitrate 1.1-5 % pasteIndication s:Dental caries Ray teeth for 2 minutes, morning and night. [...] Department Care Team Description 01/02/2025 Orders Only [facility] Information Management [address] [place] [address] Darrian Freeman MD 01/02/2025 Refill [facility]S [address] [place] [address] Nai Menenedz MD Dysuria 12/27/2024 Travel 12/27/2024 Refill [facility] [address] [place] [address] Analy Chen MD Anxiety; Adjustment insomnia 12/21/2024 Telephone [facility] [address] [place] [address] Nai Menendez MD pre op 12/21/2024 Telephone [facility] [address] [place] [address] Nai Menendez MD 12/20/2024 Telephone [facility] [address] [place] [address] Nai Menendez MD Results 12/18/2024 Travel 12/12/2024 10:45 AM EST Office Visit [facility] [address] [place] [address] [phone] Nai Menendez MD Left hip pain (Primary Dx); Primary hypertension; Bulge in groin area; Severe right groin pain; Dysuria 12/11/2024 Travel 12/11/2024 Telephone [facility] [address] [place] [address] Nai Menendez MD Nurse Triage 12/05/2024 Telephone [facility] [address] [place], [place] [phone] Nai Menendez MD Care Coordination ([facility] Landscape Foreman) 12/01/[address] [phone] Nai Menendez MD Medication Question 11/30/2024 1:45 PM EST Office Visit [facility] [address] [place] [address] Nai Menendez MD Severe right groin pain (Primary Dx); Primary hypertension; Nasal congestion; Gastroesophageal reflux disease without esophagitis; Anxiety; Adjustment insomnia; Left hip pain; Right upper quadrant pain 11/30/2024 Travel 11/29/2024 Telephone [facility] [address] [place] [address] Nai Menendez MD CHART PREP 11/24/2024 Travel 11/23/2024 Telephone [facility] 505 [place] [address] Nai Menendez MD recall appt (Pt needs appt) 10/24/2024 Orders Only [facility] External Provider, [facility] from Last 3 Months Immunizations Name [...] EDT Office Visit [facility] [address] [place] [address] Analy Chen MD [address] [place] [address] 02/12/2025 9:00 AM EDT Office Visit [facility] PEDS [address] [place] [address] Nai Menendez MD [address] [place] [address] Health Maintenance Due Date Last Done Comments [...] 9:30 AM EDT Periodontal disease Defective dental bahai Symptomatic irreversible pulpitis PROPHYLAXIS - ADULT Routine [...] Adult Primary Care ?[address] ? [place] [address] ? Ultrasound Report ? Signed ? Patient: FinkOsei ?MR#: [id number] ?? 9 ? : 1970 ?Acct:[id number] ? Age/Sex: 54 / M ?ADM Date: 12/15/24 ? Loc: HO.HMGCX ? Attending Dr: Nai Menendez MD ? Ordering Physician: Nai Menendez MD ?? Date of Service: 12/15/24 ?? Procedure(s): US abdomen complete ?? Accession Number(s): [id number] ? cc: Nai Menendez MD ? CLINICAL [...] DD/ 7 ? TD/TT: 12/16/24 0838 ? Fence Installer Foreman: ? Procedure Note Donotdanielter, Image - 12/16/2024 [facility] [address] [place] [address] [place] [address] Ultrasound Report Signed Patient: Osei Fink#: [id number] 9 : 1970Acct:[id number] Age/Sex: 54 / MADM Date: 12/15/24 Loc: HO.HMGCX Attending Dr: Nai Menendez MD Ordering Physician: Nai Menendez MD Date of Service: 12/15/24 Procedure(s): US abdomen complete Accession Number(s): [id number] cc: Nai Menenedz MD CLINICAL HISTORY: Right upper quadrant pain [...] in OV> 12/16/2439 DD/ 7 TD/TT: 12/16/24837 Fence Installer Foreman: us Nai Menendez MD IMG US PROCEDURES Edited Re sult - Final * US Scrotum (10/24/2024 8:25 AM EST) Anatomical Region Laterality Modality Body Ultrasound 10/24/2024 8:25 AM EST Narrative 12/05/2024 11:39 AM EST ? [facility] Adult Primary Care ?[address] ? [place] [address] ? Ultrasound Report ? Signed ? Patient: Osei Fink ?MR#: [id number] ?? 9 ? : 1970 ?Acct:[id number] ? Age/Sex: 54 / M ?ADM Date: 10/24/24 ? Loc: HO.HMGCX ? Attending Dr: Gayatri BOJORQUEZ ? Ordering Physician: Gayatri Ribeiro ?? Date of Service: 10/24/24 ?? Procedure(s): US scrotum ?? Accession Number(s): [id number] ? cc: Nai Menendez MD; Gayatri Ribeiro [...] ?12/05/241135 ? DD/ ? TD/TT: 10/24/24843 ? Fence Installer Foreman: MSM ? Procedure Note Guy, Angelica - 12/05/2024 [facility] [address] [place] [address] [place] [address] Ultrasound Report Signed Patient: Osei Fink#: [id number] 9 : 1970Acct:[id number] Age/Sex: 54 / MADM Date: 10/24/24 Loc: HO.HMGCX Attending Dr: Gayatri BOJORQUEZ Ordering Physician: Gayatri Ribeiro Date of Service: 10/24/24 Procedure(s): US scrotum Accession Number(s): [id number] cc: Nai Menendez MD; Gayatri Ribeiro EXAMINATION: [...] by: Jeffrey Mendoza MD 12/05/2024 11:36 AM [facility] Dictated By: Jeffrey Mendoza MD Signed By: <Electronically signed by Jeffrey Mendoza MD in OV> 12/05/24 1136 DD/ 0825 TD/TT: 10/24/24 0844 Fence Installer Foreman: SATISH [facility] External Provider IMG US PROCEDURES Final Result * Cologuard?? colon cancer screening (02/21/2024 7:45 AM EDT) Cologuard Result Negative Negative 03/01/20 3:29 AM EDT [facility] (CLIA #:[id number]) Comment: NEGATIVE TEST RESULT. A negative Cologuard [...] cancer. ??Following a negative Cologuard result, the [place] Cancer Society and U.S. Multi-Society Task Force screening guidelines recommend a Cologuard re-screening interval of 3 years. References: [place] [employer] Guideline for Colorectal Cancer Screening: https://www.cancer.org/cancer/bqvup-rgnaic-pbjedq/bjvnrjcga-rstdhzcqs-qpfdlap/ac s-rec ommendations.html.; Peña DK, Ra WILEY, Alisa BakerK, Colorectal Cancer Screening: Recommendations for Physicians and Patients from the U.S. Multi-Society Task Force on Colorectal Cancer Screening , Am J Gastroenterology 2017; 112:1431-8915. TEST DESCRIPTION: Composite algorithmic analysis of stool [...] (Lela Jones al, N Engl J Med 2014;370(14):1527-4020.) Cologuard may produce a false negative or false positive result (no colorectal cancer or precancerous polyp present at colonoscopy follow up). A negative Cologuard test result does not guarantee the absence of CRC or advanced adenoma (pre-cancer). The current Cologuard screening interval is every 3 years. ([place] [employer] Society and U.S. Multi-Society Task Force). Cologuard performance data in a 10,000 patient pivotal study using colonoscopy as the reference method can be accessed at the following location: www.Dispatch.com/results. Additional description of the Cologuard test process, warnings and precautions can be found at www.[employer]TriviaPadrd.com. Stool specimen (specimen) 02/21/2024 7:45 AM EDT 02/23/2024 10:44 AM EDT us Analy Chen MD LAB MOLECULAR DIAGNOSTICS ORD ERABLES Final Result [facility] (CLIA #:[id number]) [place] [address], * Hepatitis A,B,C Profile (02/02/2024 10:43 AM EDT) Hepatitis A IgM Nonreactive Nonreactive [facility] Comment:IgM antibodies to QUINTANILLA V not detected; does not exclude earlyacute or recovered HAV infection. ~Hepatitis B Surface Antibody NONREACTIVE Nonreactive [facility] Comment:Nonreactive: < 8.00 mIU/mL Hepatitis B Core Antibody Nonreactive Nonreactive [facility] Hepatitis C Antibody Nonreactive Nonreactive [facility] Comment:Antibodies to HCV no t detected; does not exclude early acuteHCV infection. Hepatitis B Surface Ag Negative Negative [facility] Blood Venous blood specimen / Unknown 02/02/2024 10:43 AM EDT 02/02/2024 2:10 PM EDT us Analy Chen MD LAB BLOOD ORDERABLES Final Re sult Performing Organization Address [facility]/ZIP Co de Phone Number [facility] [address] [place] [address] [phone] * HIV-1/2 Antigen and Antibodies, Fourth Generation, with Reflexes (02/02/2024 10:43 AM EDT) HIV AB/AG Nonreactive Nonreactive [facility] Comment:HIV-1 p24 Ag and/or HIV-1/HIV-2 Ab not detected.A test result that is nonreactive does not exclude thepossibility of exposure to or infection with HIV-1 and/orHIV-2. Nonreactive results in this assay for individualswith prior exposure to HIV-1 and/or HIV-2 may be due toantigen and antibody levels that are below the limit ofdetection of this assay.The [employer] HIV Ag/Ab Combo assay result andsupplemental assay results should be interpreted inconjunction with the patient's clinical presentation,history and other laboratory results. If the results areinconsistent with clinical evidence, additional testing issuggested to confirm the result. Blood Venous blood specimen / Unknown 02/02/2024 10:43 AM EDT 02/02/2024 2:10 PM EDT Analy Chen MD LAB BLOOD ORDERABLES Final Re sult Performing Organization Address [facility]/ZIP Co de Phone Number [facility] [address] [place] [address] [phone] * (ABNORMAL) Lipid Panel, Standard (02/02/2024 10:43 AM EDT) Triglycerides 143 <150 mg/dL [facility] Comment:Desirable Triglyceri de: less than 150 mg/dLBorderline High Triglyceride 150-199 mg/dLHigh Triglyceride: 200-499 mg/dLVery High Triglyceride: greater than or equal to 5OO mg/dL Cholesterol 174 <200 mg/dL [facility] Comment:Desirable Cholestero l: less than 200 mg/dLBorderline High Cholesterol: 200-239 mg/dLHigh Cholesterol: greater than 239 mg/dL LDL Cholesterol Calculated 105(H) <100 mg/dL [facility] Comment:Desirable LDL: less than 100 mg/dLNear Optimal/Above Optimal LDL: 110- 129 mg/dLBorderline High LDL: 130-159 mg/dLHigh LDL: 160-189 mg/dLVery High LDL: greater than or equal to 190 mg/dL HDL Cholesterol 41 >40 mg/dL [facility] Comment:Desirable HDL: great er than 40 mg/dL Note: This HDL assay may give artificially low results in patients with liver disease. Blood Venous blood specimen / Unknown 02/02/2024 10:43 AM EDT 02/02/2024 2:10 PM EDT us Analy Chen MD LAB BLOOD ORDERABLES Final Re sult [facility] [address] [place] [phone] from Last 3 Months or Most Recently Relevant to Health Maintenance Insurance [facility] C3 [facility] MEDICAID STAND ADULT Care Teams Auto Seat Cover Installer Relationship Specialty Start Date End Date Nai Menendez MD [address] [place] [phone] PCP - General Internal Medicine 09/25/24 Phuong Fink [facility] Office SupervisorInstructor Military Science 12/05/24
--- OUTSIDE RECORDS SUMMARY | 2025-01-10 17:51 | XMS_ITS | Encounter Summary ---
Author Organization [employer] Address 75 [facility] 7 [place] [address] Care Team Providers Care Engagement Quality Consultant Name Role Phone Nai Menendez MD Primary Care Provider [phone] Reason for Visit * Reason Onset Date Comments Pt1 10/10/2024 Encounter Details Date Type Department Care Team ([facility] Contact Info) Description 10/10/2024 Telephone [facility] MED & PEDS [address] [place] [address] Nai Menendez MD [address] [place] [address] Pt1 Social History Tobacco Use Types Packs/Day [...] Y/N: Yes Provider name or facility name: [facility] Physical Therapy Facility Address: [address] [place] [address] [place] [address] Escort needed: Y/N: No Do you have a wheelchair: Y/N: No If yes- Manual or electric: n/a Visits: 2-3 times a month for 6 months documented in this encounter Plan of Treatment Upcoming Encounters Date Type Department Care Team (Late st Contact Info) Description 01/11/2025 1:30 PM EDT Office Visit [facility] MED & PEDS [address] [place] [address] Analy Chen MD [address] [place] [address] 02/12/2025 9:00 AM EDT Office Visit [facility] MED & PEDS [address] [place] [address] Nai Menendez MD [address] [place] [address] documented as of this encounter Visit Diagnoses Not on filedocumented in this encounter Additional Health Concerns Assessment Noted Time PHQ-9 Depression Total Score: 4 02/02/20 24 9:37 AM EDT documented as of this encounter Care Teams Engagement Quality Consultant Relationship Specialty Start Date End Date Nai Menendez MD [address] [place] [phone] PCP - General Internal Medicine 09/25/24 Phuong Fink Heavy Forging Machine OperatorOffice Assistant 12/05/24 documented as of this encounter
--- OUTSIDE RECORDS SUMMARY | 2025-01-10 17:51 | XMS_ITS | Encounter Summary ---
Author Organization [employer] Address 75 [facility] [address] 7t [place] [address] Care Team Providers Care Linen Aide Name Role Phone Nai Menendez MD Primary Care Provider [phone] Encounter Details Date Type Department Care Team [...] - [facility] 505 [place] [address] Analy Chen MD 505 [place] [address] 02/12/2025 9:00 AM EDT Office Visit [facility] 505 [place] [address] Nai Menendez MD 505 [place] [address] documented as of this encounter Visit Diagnoses Not on filedocumented in this encounter Additional Health Concerns Assessment Noted Time PHQ-9 Depression Total Score: 4 02/02/20 9:37 AM EDT documented as of this encounter Care Teams Linen Aide Relationship Specialty Start Date End Date Nai Menendez MD 505 [place] [address] PCP - General Internal Medicine 09/25/24 Ph[employer]ong Fink Pin Machine OperatorLicensed Sales Producer 12/05/24 documented as of this encounter
--- OUTSIDE RECORDS SUMMARY | 2025-01-10 17:51 | XMS_ITS | Encounter Summary ---
Author Organization [employer] Address 75 [facility] 7 [place] [address] Care Team Providers Care Timber Skidder Name Role Phone Nai Menendez MD Primary Care Provider [phone] Reason for Visit * Reason Onset Date Comments Nurse Triage 12/11/2024 Encounter Details Date Type Department Care Team ([facility] st Contact Info) Description 12/11/2024 Telephone [facility] [address] [place] [address] Nai Menendez MD 505 [place] [address] Nurse Triage Social History Tobacco Use Types [...] Center 12/12/2024 10:45 AM Nai Menendez MD [facility] 12/25/2024 9:00 AM Jayson Phillips [facility] 02/12/2025 9:00 AM Nai Menendez MD [facility] Insurance verified as active per Real Time Eligibility in [facility]. Positive Triage Question: * Pain comes and [...] 01/11/2025 1:30 PM EDT Office Visit [facility] 505 [place] [address] Analy Chen MD 505 [place] [address] 02/12/2025 9:00 AM EDT Office Visit [facility] 505 [place] [address] Nai Menendez MD 505 [place] [address] documented as of this encounter Visit Diagnoses Not on filedocumented in this encounter Additional Health Concerns Assessment Noted Time PHQ-9 Depression Total Score: 4 02/02/20 24 9:37 AM EDT documented as of this encounter Care Teams Timber Skidder Relationship Specialty Start Date End Date Nai Menendez MD [address] [place] [address] PCP - General Internal Medicine 09/25/24 Phuong Fink Biosecurity OfficerIdea Worker 12/05/24 documented as of this encounter
--- OUTSIDE RECORDS SUMMARY | 2025-01-10 17:51 | XMS_ITS | Encounter Summary ---
Author Organization [employer] Address 75 [facility] 7 [place] [address] Care Team Providers Care Associate Director Financial Aid Name Role Phone Nai Menendez MD Primary Care Provider [phone] Reason for Visit * Reason Onset Date Comments Medication Question 12/01/2024 Encounter Details Date Type Department Care Team ([facility] st Contact Info) Description 12/01/2024 Telephone [facility] 230 [place] [address] Nai Menendez MD 505 [place], [place] [phone] Medication Question Social History Tobacco Use Types [...] has questions regarding medication prescribed on 11/30/24. Senior Branch Manager explained cetirizine 10mg for allergies/post nasal drip, [...] Description 01/11/2025 1:30 PM EDT Office Visit [facility] 505 [place] [address] Analy Chen MD 505 [place] [address] 02/12/2025 9:00 AM EDT Office Visit [facility] [address] [place] [address] Nai Menendez MD [address] [place] [address] documented as of this encounter Visit Diagnoses Not on filedocumented in this encounter Additional Health Concerns Assessment Noted Time PHQ-9 Depression Total Score: 4 02/02/20 24 9:37 AM EDT documented as of this encounter Care Teams Associate Director Financial Aid Relationship Specialty Start Date End Date Nai Menendez MD 505 [place] [address] PCP - General Internal Medicine 09/25/24 Phuong Fink Gas Leak TesterMorning Caregiver 12/05/24 documented as of this encounter
--- OUTSIDE RECORDS SUMMARY | 2025-01-10 17:52 | XMS_ITS | Encounter Summary ---
Author Organization [employer] Address 75 [facility] 7t [place] [address] Care Team Providers Care Patented Hogshead Assembler Name Role Phone Nai Menendez MD Primary Care Provider [phone] Encounter Details Date Type Department Care Team (Late st Contact Info) Description 01/02/2025 Orders Only [facility] [address] [place] [address] ProviderDarrian MD Social History Tobacco Use Types [...] [facility] 505 [place] [address] Analy Chen MD 505 [place] [address] 02/12/2025 9:00 AM EDT Office Visit [facility] [address] [place] [address] Nai Menendez MD 505 [place] [address] documented as of this encounter Procedures Procedure [...] documented as of this encounter Care Teams Patented Hogshead Assembler Relationship Specialty Start Date End Date Nai Menendez MD 505 [place] [address] PCP - General Internal Medicine 09/25/24 Phuong Fink Creative InternStone Layout Marker 12/05/24 documented as of this encounter
--- OUTSIDE RECORDS SUMMARY | 2025-01-10 17:52 | XMS_ITS | Encounter Summary ---
Author Organization [employer] Address 75 [facility] [address], [place] [address] Care Team Providers Care Director Of Math Name Role Phone Analy Chen MD Primary Care Provider [phone] Nai Menendez MD Primary Care Provider [phone] Reason for Referral * Consultation (Routine) - Closed Specialty Diagnoses / Procedures Referred By Contac t Referred To Contact Cardiology Diagnoses Primary hypertension Other chest pain Nai Menendez MD [address] [place] [address] Phone: tel: fax: Stephan Batista MD [address] [place] [address] Phone: tel: fax: Referral ID Status Reason Start Date Expiration Date V isits Requested Visits Authorized [id number] Closed Specialty Services Required 04/17/2024 04/17/2025 1 1 Encounter Details Date Type Department Care Team (Late st Contact Info) Description 04/17/2024 Orders Only [facility] [address] [place] [address] [phone] Nai Menendez MD [address] [place] [address] Primary hypertension (Primary Dx); Other chest pain [...] - [facility] 505 [place] [address] Analy Chen MD 505 [place] [address] 02/12/2025 9:00 AM EDT Office Visit [facility] 505 [place] [address] Nai Menendez MD 505 [place] [address] Scheduled Referrals Name Type Priority Associated Diagnoses [...] as of this encounter Care Teams Director Of Math Relationship Specialty Start Date End Date Analy Chen MD 505 [place] [address] PCP - General Internal Medicine 02/02/24 09/24/24 Nai Menendez MD 505 [place] [address] PCP - General Internal Medicine 09/25/24 Phuong Fink Instructor Military ScienceTurfgrass Technician 12/05/24 documented as of this encounter
--- OUTSIDE RECORDS SUMMARY | 2025-01-10 17:52 | XMS_ITS | Encounter Summary ---
Author Organization [employer] Address 75 [employer] 7t [place] [address] Care Team Providers Care Director Of Math Name Role Phone Analy Chen MD Primary Care Provider [phone] Nai Menendez MD Primary Care Provider [phone] Reason for Visit * Reason Onset Date Comments Nurse Triage 09/12/2024 Encounter Details Date Type Department Care Team (Late st Contact Info) Description 09/12/2024 Telephone [facility] MEDICINE 230 [place] [address] Analy Chen MD 505 [place] [address] Nurse Triage Social History Tobacco Use Types [...] Description 01/11/2025 1:30 PM EDT Office Visit [facility]ED[facility] 505 [place] [address] Analy Chen MD 505 [place] [address] 02/12/2025 9:00 AM EDT Office Visit [facility] PEDS 505 [place] [address] Nai Menendez MD 505 [place] [address] documented as of this encounter Visit Diagnoses Not on filedocumented in this encounter Additional Health Concerns Assessment Noted Time PHQ-9 Depression Total Score: 4 02/02/20 9:37 AM EDT documented as of this encounter Care Teams Director Of Math Relationship Specialty Start Date End Date Analy Chen MD 505 [place] [address] PCP - General Internal Medicine 02/02/24 09/24/24 Nai Menendez MD 505 [place] [address] PCP - General Internal Medicine 09/25/24 Phuong Fink Trailer ChiefFront Desk Agent 12/05/24 documented as of this encounter
--- OUTSIDE RECORDS SUMMARY | 2025-01-10 17:52 | XMS_ITS | Encounter Summary ---
Author Organization [employer] Address [address] [facility] [address] 7t [place] [address] Care Team Providers Care Network Security Administrator Name Role Phone Nai Menendez MD Primary Care Provider [phone] Encounter Details Date Type Department Care Team [...] Description 01/11/2025 1:30 PM EDT Office Visit [facility] 505 [place] [address] Analy Chen MD 505 [place] [address] 02/12/2025 9:00 AM EDT Office Visit [facility] 505 [place] [address] Nai Menendez MD 505 [place] [address] documented as of this encounter Visit Diagnoses Not on filedocumented in this encounter Additional Health Concerns Assessment Noted Time PHQ-9 Depression Total Score: 4 02/02/20 9:37 AM EDT documented as of this encounter Care Teams Network Security Administrator Relationship Specialty Start Date End Date Nai Menendez MD 505 [place] [address] PCP - General Internal Medicine 09/25/24 Phuong Fink Religious HealerIn Tube Conversion Technician 12/05/24 documented as of this encounter
--- OUTSIDE RECORDS SUMMARY | 2025-01-10 17:52 | XMS_ITS | Encounter Summary ---
Author Organization [employer] Address 75 [facility] 7 [place] [address] Care Team Providers Care Body Designer Name Role Phone Nai Menendez MD Primary Care Provider [phone] Reason for Visit * Reason Comments Med Refill Encounter Details Date Type Department Care Team ([facility] Contact Info) Description 12/27/2024 Refill [facility] 505 [place], [place] [phone] Analy Chen MD 505 [place] [address] Anxiety; Adjustment insomnia Social History Tobacco Use [...] Description 01/11/2025 1:30 PM EDT Office Visit [facility] 505 [place] [address] Analy Chen MD 505 [place] [address] 02/12/2025 9:00 AM EDT Office Visit [facility] [address] [place] [address] Nai Menendez MD 505 [place] [address] documented as of this encounter Visit Diagnoses Diagnosis Anxiety Anxiety state, unspecified Adjustment insomnia Insomnia, unspecified documented in this encounter Additional Health Concerns Assessment Noted Time PHQ-9 Depression Total Score: 10 025 9:07 AM EST documented as of this encounter Care Teams Body Designer Relationship Specialty Start Date End Date Nai Menendez MD 505 [place] [address] PCP - General Internal Medicine 09/25/24 Phuong Fink Assembling Machine OperatorEl Teacher 12/05/24 documented as of this encounter
--- OUTSIDE RECORDS SUMMARY | 2025-01-10 17:52 | XMS_ITS | Clinical Summary ---
Author Organization 175 [facility] Address 175 [place] [address] Phone Care Team Providers Care Manager Core Name Role Phone Nai Menendez MD Primary Care Provider [phone] Allergies No known active allergies Medications amLODIPine [...] AM EST Office Visit [facility] [place] 175 [facility] [address] [place] [address] Zayra Cuevas MD Recurrent inguinal hernia of right side without obstruction or gangrene (Primary Dx); Inguinal pain, unspecified laterality 12/20/2024 Telephone General Surgery [facility] 175 [facility] [address] [place] [address] Yolande Avendano MA from Last [...] Description 01/18/2025 10:30 AM EDT Hospital Encounter [facility] Main OR [address] [place] [address] Zayra Cuevas MD 175 [facility] [address] [place] [address] 01/18/2025 10:30 AM EDT - 01/18/2025 1:00 PM EDT Surgery [facility] Main OR [address] [place] [address] Zayra Cuevas MD [address] [address] DAVINCI REPAIR RECURRENT RIGHT INGUINAL HERNIA; ? LEFT W/MESH REMOVAL OF RIGHT INGUINAL REGION [78374 (CPT??)] 02/05/2025 9:15 AM EDT Office Visit [facility] [place] [address] [address] Zayra Cuevas MD [address] [address] Scheduled Procedures Name Priority Associated [...] GEMUSE QTc 396 ms GEMUSE P Wave Avon 58 degrees GEMUSE R Avon 6 degrees GEMUSE T Avon 42 degrees GEMUSE ECG Interpretation Normal sinus rhythm Normal ECG When compared with ECG of 23-MAY-2024 14:03, QRS axis Shifted right Confirmed by Edgar CHEW JOHN ([id number]) on 01/01/2025 8:08:21 PM GEMUSE 01/01/2025 11:2 2 AM EST 01/01/2025 8:08 PM EST us Zayra Cuevas MD ECG ORDERABLES Final R esult GEMUSE from Last 3 Months Insurance [place] - [place] Care Teams Manager Core Relationship Specialty Start Date End Date Nai Menendez MD [address] [place] [address] PCP - General Internal Medicine 12/14/24
--- OUTSIDE RECORDS SUMMARY | 2025-01-10 17:52 | XMS_ITS | Encounter Summary ---
Author Organization [employer] Address 75 [facility] 7t [place] [address] Care Team Providers Care Deburrer Name Role Phone Analy Chen MD Primary Care Provider [phone] Nai Menendez MD Primary Care Provider [phone] Encounter Details Date Type Department Care Team ([facility] st Contact Info) Description 06/14/2024 Orders Only [facility] [address] [place], [place] [phone] Nai Menendez MD 505 [place] [address] Tremor (Primary Dx); Low TSH level Social [...] [facility] [address] [place] [address] Analy Chen MD 505 [place] [address] 02/12/2025 9:00 AM EDT Office Visit [facility] MED & PEDS [address] [place] [address] Nai Menendez MD [address] [place] [address] documented as of this encounter Visit Diagnoses Diagnosis Tremor- Primary Abnormal involuntary movements Low TSH level documented in this encounter Additional Health Concerns Assessment Noted Time PHQ-9 Depression Total Score: 4 02/02/20 9:37 AM EDT documented as of this encounter Care Teams Deburrer Relationship Specialty Start Date End Date Analy Chen MD [address] [place] [address] PCP - General Internal Medicine 02/02/24 09/24/24 Nai Menendez MD 505 [place] [address] PCP - General Internal Medicine 09/25/24 Phuong Fink Etymology ProfessorSupply Chain Development Manager 12/05/24 documented as of this encounter
--- OUTSIDE RECORDS SUMMARY | 2025-01-10 17:52 | XMS_ITS | Encounter Summary ---
Author Organization [employer] Address 75 [facility] 7 [place] [address] Care Team Providers Care Piece Maker Name Role Phone Nai Menendez MD Primary Care Provider [phone] Reason for Visit * Reason Onset Date Comments pre op 12/21/2024 Encounter Details Date Type Department Care Team ([facility] Contact Info) Description 12/21/2024 Telephone [facility]S [address] [place] [address] Nai Menendez MD [address] [place] [address] pre op Social History Tobacco Use Types [...] Yes EKG: Yes Surgeon's name: Facility name: [facility]. Procedure will be done at [facility] Surgeon's office number: [phone] Surgeon's office fax number: [phone] Contact name (person you spoke with): Kim Last office note from surgeon requested: No Send Message to Sima Ferraro and Josef Muhammad documented in this encounter Plan of Treatment Upcoming Encounters Date Type Department Care Team ([facility] st Contact Info) Description 01/11/2025 1:30 PM EDT Office Visit [facility] MED & PEDS 505 [place], [place] [phone] Analy Chen MD [address] [place] [address] 02/12/2025 9:00 AM EDT Office Visit [facility] 505 [facility] [place] [address] Nai Menendez MD [address] [place] [address] documented as of this encounter Visit Diagnoses Not on filedocumented in this encounter Additional Health Concerns Assessment Noted Time PHQ-9 Depression Total Score: 4 02/02/20 24 9:37 AM EDT documented as of this encounter Care Teams Piece Maker Relationship Specialty Start Date End Date Nai Menendez MD [address] [place] [address] PCP - General Internal Medicine 09/25/24 Phuong Fink Sales Enablement ManagerSegregator 12/05/24 documented as of this encounter
--- OUTSIDE RECORDS SUMMARY | 2025-01-10 17:52 | XMS_ITS | Encounter Summary ---
Author Organization [employer] Address 75 [facility] 7t [place] [address] Care Team Providers Care Limousine Rental Clerk Name Role Phone Analy Chen MD Primary Care Provider [phone] Nai Menendez MD Primary Care Provider [phone] Reason for Visit * Reason Onset Date Comments Call Back Request 06/09/2024 Encounter Details Date Type Department Care Team (Late st Contact Info) Description 06/09/2024 Telephone [facility] MEDICINE 230 [place] [address] Analy Chen MD 505 [place] [address] Call Back Request Social History Tobacco Use [...] Description 01/11/2025 1:30 PM EDT Office Visit [facility] MED & PEDS [address] [place] [address] Analy Chen MD 505 [place] [address] 02/12/2025 9:00 AM EDT Office Visit [facility]ED[facility] [address] [place] [address] Nai Menendez MD 505 [place] [address] documented as of this encounter Visit Diagnoses Not on filedocumented in this encounter Additional Health Concerns Assessment Noted Time PHQ-9 Depression Total Score: 4 02/02/20 9:37 AM EDT documented as of this encounter Care Teams Limousine Rental Clerk Relationship Specialty Start Date End Date Analy Chen MD [address] [place] [address] PCP - General Internal Medicine 02/02/24 09/24/24 Nai Menendez MD [address] [place] [address] PCP - General Internal Medicine 09/25/24 Phuong Fink Marketing Automation ManagerCommunity Health Counselor 12/05/24 documented as of this encounter
--- OUTSIDE RECORDS SUMMARY | 2025-01-10 17:52 | XMS_ITS | Encounter Summary ---
Author Organization [employer] Address 75 [facility] 7t [place] [address] Care Team Providers Care Top Trimmer Name Role Phone Nai Menendez MD Primary Care Provider [phone] Encounter Details Date Type Department Care Team (Late st Contact Info) Description 12/21/2024 Telephone [facility] MEDICINE [address] [place] [address] Nai Menendez MD 505 [place], [place] [phone] Social History Tobacco Use Types Packs/Day Years [...] - [facility] [address] [place] [address] Analy Chen MD 505 [place] [address] 02/12/2025 9:00 AM EDT Office Visit [facility] [address] [place] [address] Nai Menendez MD 505 [place] [address] documented as of this encounter Visit Diagnoses Not on filedocumented in this encounter Additional Health Concerns Assessment Noted Time PHQ-9 Depression Total Score: 4 02/02/20 9:37 AM EDT documented as of this encounter Care Teams Top Trimmer Relationship Specialty Start Date End Date Nai Menendez MD 505 [place] [address] PCP - General Internal Medicine 09/25/24 Phuong Fink Theatrical AgentStructural Steel Worker Helper 12/05/24 documented as of this encounter
--- OUTSIDE RECORDS SUMMARY | 2025-01-10 17:52 | XMS_ITS | Encounter Summary ---
Author Organization [employer] Address 75 [facility] 7 [place] [address] Care Team Providers Care Application Support Name Role Phone Nai Menendez MD Primary Care Provider [phone] Reason for Visit * Reason Onset Date Comments Results 12/20/2024 Encounter Details Date Type Department Care Team ([facility] Contact Info) Description 12/20/2024 Telephone [facility]S 505 [place], [place] [phone] Nai Menendez MD 505 [place] [address] Results Social History Tobacco Use Types Packs/Day [...] Description 01/11/2025 1:30 PM EDT Office Visit [facility] MED & PEDS 505 [place] [address] Analy Chen MD [address] [place] [address] 02/12/2025 9:00 AM EDT Office Visit [facility] MED & PEDS 505 [place] [address] Nai Menendez MD 505 [place] [address] documented as of this encounter Visit Diagnoses Not on filedocumented in this encounter Additional Health Concerns Assessment Noted Time PHQ-9 Depression Total Score: 4 02/02/20 24 9:37 AM EDT documented as of this encounter Care Teams Application Support Relationship Specialty Start Date End Date Nai Menendez MD [address] [place] [address] PCP - General Internal Medicine 09/25/24 Phuong Fink Manager Of Disaster RecoveryChief Lending Officer 12/05/24 documented as of this encounter
--- OUTSIDE RECORDS SUMMARY | 2025-01-10 17:53 | XMS_ITS | Encounter Summary ---
Author Organization [facility] Address [address] [place] [address] Care Team Providers Care Field Tech Name Role Phone Nai Menendez MD Primary Care Provider [phone] Reason for Visit * Reason Comments Consult New patient Bulge In groin area Encounter Details Date Type Department Care Team ([facility] st Contact Info) Description 12/20/2024 8:45 AM EST Office Visit Bariatric Surgery - [place] [address] [facility] [address] [place] [address] Zayra Ceuvas MD [address] [facility] [address] [place] [address] Recurrent inguinal hernia of right [...] About a month ago had U/[facility] at [facility] which the patient states showed bilateral ing [...] Body: 431 mGy*cm. COMPARISON: 11/17/2023, 11/01/2023. FINDINGS: Salvage Mend Worker View Findings, Lines and Tubes: None. Visualized [...] and I agree with this report. WSN: [id number] Ordering Physician: Gary Christie Signature Line Dictated [...] and I agree with this report. WSN: [id number] Ordering Physician: Pj Thomas Signature Line Dictated [...] to optimize exposure parameters. COMPARISON: None. FINDINGS: Salvage Mend Worker View Findings, Lines and Tubes: None. Visualized [...] Mildly fatty liver. Results were relayed by [facility] by Dr. Deutsch to Sydnie Solitario DO on 11/01/2023 6:30 AM. I have personally reviewed the images and I agree with this report. WSN: [id number] Ordering Physician: Sydnie Solitario Signature Line Dictated [...] the other. From his medical record at [facility], it appears that he has seen [...] Description 01/18/2025 10:30 AM EDT Hospital Encounter [facility] OR [address] [place] [phone] Zayra Cuevas MD [address] [address] 01/18/2025 10:30 AM EDT - 01/18/2025 1:00 PM EDT Surgery [facility] OR [address] [place] [phone] Zayra Cuevas MD [address] [address] DAVINCI REPAIR RECURRENT RIGHT INGUINAL HERNIA; ? LEFT W/MESH REMOVAL OF RIGHT INGUINAL REGION [70712 (CPT??)] 02/05/2025 9:15 AM EDT Office Visit Bariatric Surgery - [place] 175 [facility] [address] [place] [address] Zayra Cuevas MD 175 [facility] [address] [place] [address] Scheduled Procedures Name Priority Associated [...] repair documented in this encounter Care Teams Field Tech Relationship Specialty Start Date End Date Nai Menendez MD [address] [place] [address] PCP - General Internal Medicine 12/14/24 documented as of this encounter
--- OUTSIDE RECORDS SUMMARY | 2025-01-10 17:53 | XMS_ITS | Encounter Summary ---
Author Organization [employer] Address 75 [facility] 7 [place] [address] Care Team Providers Care Sanitary Plumber Name Role Phone Nai Menendez MD Primary Care Provider [phone] Reason for Visit * Reason Comments Med Refill Encounter Details Date Type Department Care Team ([facility] Contact Info) Description 01/02/2025 Refill [facility] MED & PEDS [address] [place], [place] [phone] Nai Menendez MD 505 [place] [address] Dysuria Social History Tobacco Use Types Packs/Day [...] 1:30 PM EDT Office Visit [facility] MED & PEDS [address] [place] [address] Analy Chen MD [address] [place] [address] 02/12/2025 9:00 AM EDT Office Visit [facility] MED & PED[facility] [address] [place] [address] Nai Menendez MD [address] [place] [address] documented as of this encounter Visit Diagnoses Diagnosis Dysuria documented in this encounter Additional Health Concerns Assessment Noted Time PHQ-9 Depression Total Score: 10 025 9:07 AM EST documented as of this encounter Care Teams Sanitary Plumber Relationship Specialty Start Date End Date Nai Menendez MD [address] [place] [address] PCP - General Internal Medicine 09/25/24 Phuong Fink Configuration DeveloperMedical Office Manager 12/05/24 documented as of this encounter
--- OUTSIDE RECORDS SUMMARY | 2025-01-10 17:53 | XMS_ITS | Encounter Summary ---
Author Organization [facility] Address [address] [place] [address] Care Team Providers Care Automobile Accessories Installer Name Role Phone Nai Menendez MD Primary Care Provider [phone] Encounter Details Date Type Department Care Team (Late st Contact Info) Description 12/20/2024 Telephone General Surgery - [place] [address] [address] Yolande Avendano [place] Social History [...] Description 01/18/2025 10:30 AM EDT Hospital Encounter [facility] OR [address] [place] [address] Zayra Cuevas MD [address] [address] 01/18/2025 10:30 AM EDT - 01/18/2025 1:00 PM EDT Surgery [facility] OR [address] [place] [phone] Zayra Cuevas MD [address] [address] DAVINCI REPAIR RECURRENT RIGHT INGUINAL HERNIA; ? LEFT W/MESH REMOVAL OF RIGHT INGUINAL REGION [55296 (CPT??)] 02/05/2025 9:15 AM EDT Office Visit Bariatric Surgery - [place] 175 [facility] 120 [place] [address] Zayra Cuevas MD 175 [facility] 120 [place] [address] Scheduled Procedures Name Priority Associated Diagnoses Date/Ti me REPAIR HERNIA INGUINAL BILATERAL ROBOT Recurrent right inguinal hernia Hx of bilateral inguinal hernia repair 01/18/2025 10:30 AM EDT documented as of this encounter Visit Diagnoses Not on filedocumented in this encounter Care Teams Automobile Accessories Installer Relationship Specialty Start Date End Date Nai Menendez MD [address] [place] [address] PCP - General Internal Medicine 12/14/24 documented as of this encounter
--- OUTSIDE RECORDS SUMMARY | 2025-01-10 17:53 | XMS_ITS | Clinical Summary ---
Author Organization [facility] Address [address] [place] [address] Care Team Providers Care Captain Assistant Name Role Phone Unavailable Primary Care Provider [...] 01/23/2017 Imm-Zoster, Recombinant (1 of 2) 01/23/2022 Ovr-KSUJR-33 (3 - season) 2024 021, 03/06/2021 Imm-Influenza (#1) 2024 Alcohol and Drug Screen 11/01/2024 Depression Annual Screen 11/01/2024 Insurance COVID19 [facility] UNINSURED TESTING AND TREATMENT FUND
--- OUTSIDE RECORDS SUMMARY | 2025-01-10 17:53 | XMS_ITS | Encounter Summary ---
Author Organization [employer] Address [address] [facility] [address] 7t [place] [address] Care Team Providers Care Quality Assurance Clerk Name Role Phone Nai Menendez MD Primary Care Provider [phone] Encounter Details Date Type Department Care Team [...] Description 01/11/2025 1:30 PM EDT Office Visit [facility] MED & PEDS 505 [place] [address] Analy Chen MD 505 [place] [address] 02/12/2025 9:00 AM EDT Office Visit [facility] MED & PEDS 505 [place] [address] Nai Menendez MD 505 [place] [address] documented as of this encounter Visit Diagnoses Not on filedocumented in this encounter Additional Health Concerns Assessment Noted Time PHQ-9 Depression Total Score: 10 025 9:07 AM EST documented as of this encounter Care Teams Quality Assurance Clerk Relationship Specialty Start Date End Date Nai Menendez MD [address] [place] [address] PCP - General Internal Medicine 09/25/24 Phuong Fink Primary School PrincipalBrewery Technician 12/05/24 documented as of this encounter
--- OUTSIDE RECORDS SUMMARY | 2025-01-10 17:53 | XMS_ITS | Encounter Summary ---
Author Organization [employer] Address 75 [facility] 7t [place] [address] Care Team Providers Care Bottom Polisher Name Role Phone Analy Chen MD Primary Care Provider [phone] Nai Menendez MD Primary Care Provider [phone] Reason for Visit * Reason Onset Date Comments ER Follow-up 02/11/2024 Encounter Details Date Type Department Care Team (Late st Contact Info) Description 02/11/2024 Telephone [facility] MEDICINE [address] [place] [address] Analy Chen MD 505 [place], [place] [phone] ER Follow-up Social History Tobacco Use Types [...] ED visit on : Date: 02/08 Hospital: [facility] Seen for: Skin Lump had surgery on 01/26 for hernia and still had pain with a lump Patient advised will forward to team nurse for follow up documented in this encounter Plan of Treatment Upcoming Encounters Date Type Department Care Team (Late st Contact Info) Description 01/11/2025 1:30 PM EDT Office Visit [facility] MED & PEDS 505 [place] [address] Analy Chen MD 505 [facility] [place] [place] [address] 02/12/2025 9:00 AM EDT Office Visit [facility] MED & PEDS 505 [facility] [place] [address] Nai Menendez MD [address] [facility] [place] [place] [address] documented as of this encounter Visit Diagnoses Not on filedocumented in this encounter Additional Health Concerns Assessment Noted Time PHQ-9 Depression Total Score: 4 02/02/20 24 9:37 AM EDT documented as of this encounter Care Teams Bottom Polisher Relationship Specialty Start Date End Date Analy Chen MD [address] [place] [address] [place] [address] PCP - General Internal Medicine 02/02/24 09/24/24 Nai Menendez MD [address] [place], [place] [address] [place] [address] PCP - General Internal Medicine 09/25/24 Phuong Fink Websphere DeveloperFuneral Counselor 12/05/24 documented as of this encounter
--- OUTSIDE RECORDS SUMMARY | 2025-01-10 17:53 | XMS_ITS | Encounter Summary ---
Author Organization [employer] Address 75 [facility] 7t [place] [address] Care Team Providers Care Burrer Machine Name Role Phone Analy Chen MD Primary Care Provider [phone] Nai Menendez MD Primary Care Provider [phone] Reason for Visit * Reason Onset Date Comments Nurse Triage 02/09/2024 Encounter Details Date Type Department Care Team (Late st Contact Info) Description 02/09/2024 Telephone [facility] MEDICINE 230 [place] [address] Analy Chen MD 505 [place] [address] Nurse Triage Social History Tobacco Use Types [...] of previous surgery. No apts available in [facility] today or tomorrow. Pt is advised to come [facility] today for provider to see Pt [...] [facility] [address] [place] [address] Analy Chen MD 505 [place] [address] 02/12/2025 9:00 AM EDT Office Visit [facility] MED & PEDS [address] [place] [address] Nai Menendez MD 505 [place] [address] documented as of this encounter Visit Diagnoses Not on filedocumented in this encounter Additional Health Concerns Assessment Noted Time PHQ-9 Depression Total Score: 4 02/02/20 24 9:37 AM EDT documented as of this encounter Care Teams Burrer Machine Relationship Specialty Start Date End Date Analy Chen MD 505 [place] [address] PCP - General Internal Medicine 02/02/24 09/24/24 Nai Menendez MD 505 [place] [address] PCP - General Internal Medicine 09/25/24 Phuong Fink Drop Count AssociateMeter Changes Records Clerk 12/05/24 documented as of this encounter
== END 2025-01-09 15:10 | disposition home or self-care (01) ==
LOC: HO.HOSX 15:09
PROVIDERS: Visit Provider Physician Assistant
DX: M25.552 Pain in left hip (principal); M54.16 Radiculopathy, lumbar region
CPT/HCPCS: 73502; 99212

== ENCOUNTER 2025-01-11 14:09 | Outpatient (REF) | payer MEDICAID, SELFPAY ==
[2025-01-11 17:43] LABS: MANUAL DIFF FLAG NO
[2025-01-11 17:54] LABS: INTERNATIONAL NORM RATIO 1.1 (0.9-1.1); Prothrombin Time 12.4 SEC (10.9-12.4)
--- OUTSIDE RECORDS SUMMARY | 2025-01-11 17:57 | XMS_ITS | Encounter Summary ---
Author Organization [employer] Address 75 [facility] [address], [place] [address] Care Team Providers Care Automotive Technician Name Role Phone Analy Chen MD Primary Care Provider [phone] Nai Menendez MD Primary Care Provider [phone] Reason for Referral * Consultation (Routine) - Closed Specialty Diagnoses / Procedures Referred By Contac t Referred To Contact Cardiology Diagnoses Primary hypertension Other chest pain Nai Menendez MD [address] [place] [address] Phone: tel: fax: Stephan Batista MD [address] [place] [address] Phone: tel: fax: Referral ID Status Reason Start Date Expiration Date V isits Requested Visits Authorized [id number] Closed Specialty Services Required 04/17/2024 04/17/2025 1 1 Encounter Details Date Type Department Care Team (Late st Contact Info) Description 04/17/2024 Orders Only [facility] [address] [place] [address] [phone] Nai Menendez MD [address] [place] [phone] Primary hypertension (Primary Dx); Other chest pain [...] 02/12/2025 9:00 AM EDT Office Visit [facility] CHC MED & PEDS 505 [place] [address] Nai Menendez MD 505 [place] [address] Scheduled Referrals Name Type Priority Associated Diagnoses [...] documented as of this encounter Care Teams Automotive Technician Relationship Specialty Start Date End Date Analy Chen MD 505 [place] [address] PCP - General Internal Medicine 02/02/24 09/24/24 Nai Menendez MD 505 [place] [address] PCP - General Internal Medicine 09/25/24 Phuong Fink Devulcanizer OperatorProgram Support Clerk 12/05/24 documented as of this encounter
--- OUTSIDE RECORDS SUMMARY | 2025-01-11 17:57 | XMS_ITS | Encounter Summary ---
Author Organization [employer] Address 75 [facility] 7 [place] [address] Care Team Providers Care Hammer Setter Name Role Phone Nai Menendez MD Primary Care Provider [phone] Reason for Visit * Reason Onset Date Comments Medication Question 12/01/2024 Encounter Details Date Type Department Care Team ([facility] st Contact Info) Description 12/01/2024 Telephone [facility] MEDICINE 230 [place] [address] Nai Menendez MD 505 [place] [address] Medication Question Social History Tobacco Use Types [...] has questions regarding medication prescribed on 11/30/24. News Director explained cetirizine 10mg for allergies/post nasal drip, [...] - [facility] [facility]S 505 [place] [address] Nai Menendez MD 505 [place] [address] documented as of this encounter Visit Diagnoses Not on filedocumented in this encounter Additional Health Concerns Assessment Noted Time PHQ-9 Depression Total Score: 4 02/02/20 24 9:37 AM EDT documented as of this encounter Care Teams Hammer Setter Relationship Specialty Start Date End Date Nai Menenedz MD 505 [place] [address] PCP - General Internal Medicine 09/25/24 Phuong Fink Operations Team LeaderKiln Remover 12/05/24 documented as of this encounter
--- OUTSIDE RECORDS SUMMARY | 2025-01-11 17:57 | XMS_ITS | Encounter Summary ---
Author Organization [employer] Address 75 [facility] 7 [place] [address] Care Team Providers Care Aluminum Molder Name Role Phone Nai Menendez MD Primary Care Provider [phone] Reason for Visit * Reason Onset Date Comments pre op 12/21/2024 Encounter Details Date Type Department Care Team ([facility] Contact Info) Description 12/21/2024 Telephone [facility] CHC MED & PEDS [address] [place] [address] Nai Menendez MD 505 [place] [address] pre op Social History Tobacco Use Types [...] Yes EKG: Yes Surgeon's name: Facility name: [facility]. Procedure will be done at [facility] Surgeon's office number: [phone] Surgeon's office fax number: [phone] Contact name (person you spoke with): Kim Last office note from surgeon requested: No Send Message to Sima Ferraro and Josef Muhammad documented in this encounter Plan of Treatment Upcoming Encounters Date Type Department Care Team ([facility] st Contact Info) Description 02/12/2025 9:00 AM EDT Office Visit [facility] MED & PEDS [address] [place] [address] Nai Menendez MD 505 [place] [address] documented as of this encounter Visit Diagnoses Not on filedocumented in this encounter Additional Health Concerns Assessment Noted Time PHQ-9 Depression Total Score: 4 02/02/20 24 9:37 AM EDT documented as of this encounter Care Teams Aluminum Molder Relationship Specialty Start Date End Date Nai Menendez MD 505 [place] [address] PCP - General Internal Medicine 09/25/24 Phuong Fink Client Care RepresentativeDiversity Intern 12/05/24 documented as of this encounter
--- OUTSIDE RECORDS SUMMARY | 2025-01-11 17:57 | XMS_ITS | Encounter Summary ---
Author Organization [employer] Address 75 [facility] [address] 7t [place] [address] Care Team Providers Care Employment Director Name Role Phone Nai Menendez MD Primary Care Provider [phone] Encounter Details Date Type Department Care Team (Latest Contact Info) Description 01/11/2025 Travel Social History Tobacco Use Types Packs/Day [...] Description 02/12/2025 9:00 AM EDT Office Visit [facility] MED & PEDS 505 [place] [address] Nai Menendez MD 505 [place] [address] documented as of this encounter Visit Diagnoses Not on filedocumented in this encounter Additional Health Concerns Assessment Noted Time PHQ-9 Depression Total Score: 10 025 9:07 AM EST documented as of this encounter Care Teams Employment Director Relationship Specialty Start Date End Date Nai Menendez MD 505 [place] [address] PCP - General Internal Medicine 09/25/24 Phuong Fink Fitter [employer] Clinical Marketer 12/05/24 documented as of this encounter
--- OUTSIDE RECORDS SUMMARY | 2025-01-11 17:57 | XMS_ITS | Encounter Summary ---
Author Organization [employer] Address [address] [facility] [address] 7t [place] [address] Care Team Providers Care Efficiency Engineer Name Role Phone Nai Menendez MD Primary Care Provider [phone] Encounter Details Date Type Department Care Team [...] [facility] MED & PEDS 505 [place] [address] Nai Menendez MD 505 [place] [address] documented as of this encounter Visit Diagnoses Not on filedocumented in this encounter Additional Health Concerns Assessment Noted Time PHQ-9 Depression Total Score: 4 02/02/20 9:37 AM EDT documented as of this encounter Care Teams Efficiency Engineer Relationship Specialty Start Date End Date Nai Menendez MD 505 [place] [address] PCP - General Internal Medicine 09/25/24 Phuong Fink Visiting HousekeeperAmmunition Components Inspector 12/05/24 documented as of this encounter
--- OUTSIDE RECORDS SUMMARY | 2025-01-11 17:57 | XMS_ITS | Encounter Summary ---
Author Organization [employer] Address 75 [facility] 7t [place] [address] Care Team Providers Care Lay Ups Assembler Name Role Phone Analy Chen MD Primary Care Provider [phone] Nai Menendez MD Primary Care Provider [phone] Reason for Visit * Reason Onset Date Comments Nurse Triage 09/12/2024 Encounter Details Date Type Department Care Team (Late st Contact Info) Description 09/12/2024 Telephone [facility] MEDICINE [address] [place] [address] Analy Chen MD 505 [place] [address] Nurse Triage Social History Tobacco Use Types [...] Upcoming Encounters Date Type Department Care Team ([facility] st Contact Info) Description 02/12/2025 9:00 AM EDT Office Visit [facility] MED & PEDS 505 [place] [address] Nai Menendez MD 505 [place] [address] documented as of this encounter Visit Diagnoses Not on filedocumented in this encounter Additional Health Concerns Assessment Noted Time PHQ-9 Depression Total Score: 4 02/02/20 24 9:37 AM EDT documented as of this encounter Care Teams Lay Ups Assembler Relationship Specialty Start Date End Date Analy Chen MD 505 [place] [address] PCP - General Internal Medicine 02/02/24 09/24/24 Nai Menendez MD 505 [place] [address] PCP - General Internal Medicine 09/25/24 Phuong Fink Clerical GraderDirector Educational Radio 12/05/24 documented as of this encounter
--- OUTSIDE RECORDS SUMMARY | 2025-01-11 17:57 | XMS_ITS | Encounter Summary ---
Author Organization [employer] Address 75 [facility] 7t [place] [address] Care Team Providers Care Field Naturalist Name Role Phone Analy Chen MD Primary Care Provider [phone] Nai Menendez MD Primary Care Provider [phone] Encounter Details Date Type Department Care Team ([facility] st Contact Info) Description 06/14/2024 Orders Only [facility] CHC MED & PEDS 505 [place], [place] [phone] Nai Menendez MD 505 [place] [address] Tremor (Primary Dx); Low TSH level Social [...] Description 02/12/2025 9:00 AM EDT Office Visit [facility] MED & PEDS 505 [place] [address] Nai Menendez MD 505 [place] [address] documented as of this encounter Visit Diagnoses Diagnosis Tremor- Primary Abnormal involuntary movements Low TSH level documented in this encounter Additional Health Concerns Assessment Noted Time PHQ-9 Depression Total Score: 4 02/02/20 24 9:37 AM EDT documented as of this encounter Care Teams Field Naturalist Relationship Specialty Start Date End Date Analy Chen MD 505 [place] [address] PCP - General Internal Medicine 02/02/24 09/24/24 Nai Menendez MD 505 [place] [address] PCP - General Internal Medicine 09/25/24 Phuong Fink Local Bulk DriverWelder Fabricator 12/05/24 documented as of this encounter
--- OUTSIDE RECORDS SUMMARY | 2025-01-11 17:57 | XMS_ITS | Encounter Summary ---
Author Organization [employer] Address 75 [facility] 7t [place] [address] Care Team Providers Care Edge Stainer Name Role Phone Nai Menendez MD Primary Care Provider [phone] Encounter Details Date Type Department Care Team (Late st Contact Info) Description 01/02/2025 Orders Only [facility] [address] [place] [address] ProviderDarrian MD Social History Tobacco Use Types [...] 9:00 AM EDT Office Visit [facility] MED & PEDS 505 [place] [address] Nai Menendez MD 505 [place] [address] documented as of this encounter Procedures Procedure [...] documented as of this encounter Care Teams Edge Stainer Relationship Specialty Start Date End Date Nai Menendez MD 505 [place] [address] PCP - General Internal Medicine 09/25/24 Phuong Fink Radial Drill Press OperatorRougher Machine Operator 12/05/24 documented as of this encounter
--- OUTSIDE RECORDS SUMMARY | 2025-01-11 17:57 | XMS_ITS | Clinical Summary ---
Author Organization 175 [facility] Address 175 [place] [address] Phone Care Team Providers Care Furnace Repair Mechanic Name Role Phone Nai Menendez MD Primary Care Provider [phone] Allergies No known active allergies Medications amLODIPine [...] AM EST Office Visit Bariatric Surgery - [place] 175 [facility] [address] [place] [address] Zayra Cuevas MD Recurrent inguinal hernia of right side without obstruction or gangrene (Primary Dx); Inguinal pain, unspecified laterality 12/20/2024 Telephone General Surgery [facility] 175 [facility] [address] [place] [address] Yolande Avendano MA from Last [...] Description 01/18/2025 10:30 AM EDT Hospital Encounter [facility] Main OR [address] [place] [address] Zayra Cuevas MD 175 [facility] [address] [place] [address] 01/18/2025 10:30 AM EDT - 01/18/2025 1:00 PM EDT Surgery [facility] Main OR [address] [place] [address] Zayra Cuevas MD [address] [address] DAVINCI REPAIR RECURRENT RIGHT INGUINAL HERNIA; ? LEFT W/MESH REMOVAL OF RIGHT INGUINAL REGION [[address]150 (CPT??)] 02/05/2025 9:15 AM EDT Office Visit [facility] [place] [address] [address] Zayra Cuevas MD [address] [address] Scheduled Procedures Name Priority Associated [...] GEMUSE QTc 396 ms GEMUSE P Wave [place] 58 degrees GEMUSE R [place] 6 degrees GEMUSE T [place] 42 degrees GEMUSE ECG Interpretation Normal sinus rhythm Normal ECG When compared with ECG of 23-MAY-2024 14:03, QRS axis Shifted right Confirmed by Edgar CHEW JOHN ([id number]) on 01/01/2025 8:08:21 PM GEMUSE 01/01/2025 11:2 2 AM EST 01/01/2025 8:08 PM EST us Zayra Cuevas MD ECG ORDERABLES Final R esult GEMUSE from Last 3 Months Insurance MEDICAID - [place] Care Teams Furnace Repair Mechanic Relationship Specialty Start Date End Date Nai Menendez MD [address] [place] [address] PCP - General Internal Medicine 12/14/24
--- OUTSIDE RECORDS SUMMARY | 2025-01-11 17:57 | XMS_ITS | Encounter Summary ---
Author Organization [employer] Address [address] [facility] 7t [place] [address] Care Team Providers Care Rn Surgical Name Role Phone Nai Menendez MD Primary Care Provider [phone] Encounter Details Date Type Department Care Team ([facility] st Contact Info) Description 01/11/2025 1:30 PM EDT Office Visit [facility] CHC MED & PEDS [address] [place], [place] [phone] Analy Chen MD [address] [place] [address] Preop examination (Primary Dx) Social History Tobacco Use Types Packs/Day Years [...] Sign Reading Time Taken Comments Blood Pressure 134/84 01/11/2025 1:47 PM EDT Pulse 64 01/11/2025 1:47 PM EDT Temperature 36.6 ??C (97.8 ??F) 01/11/2025 1:47 PM ED T Respiratory Rate 20 01/11/2025 1:47 PM EDT Oxygen Saturation 98% 01/11/2025 1:47 PM EDT Inhaled Oxygen Concentration - - Weight 71 kg (156 lb 9.6 oz) 01/11/2025 1:47 PM EDT Height 167.6 cm (5' 6 ) 01/11/2025 1:47 PM EDT Body Mass Index 25.28 01/11/2025 1:47 PM EDT documented in this encounter Plan of Treatment Upcoming Encounters Date Type Department Care Team (Late st Contact Info) Description 02/12/2025 9:00 AM EDT Office Visit [facility] MED & PEDS [address] [place] [address] Nai Menendez MD [address] [place] [address] Scheduled Orders Name Type Priority Associated Diagnoses Orde r Schedule CBC auto differential Lab Routine Preop examination Expected: 01/11/2025 (Approximate), Expires: 01/11/2026 Basic Metabolic Panel Lab Routine Preop examination Expected: 01/11/2025 (Approximate), Expires: 01/11/2026 Urinalysis Complete Lab Routine Preop examination Expected: 01/11/2025, Expires: 01/11/2026 Hepatic Function Panel Lab Routine Preop examination Expected: 01/11/2025 (Approximate), Expires: 01/11/2026 ECG 12 lead ECG Routine Preop examination Ordered: 01/11/2025 documented as of this encounter Procedures Procedure Name Priority Date/Time Associated Diagnosis Comments PROTHROMBIN TIME-INR Routine 01/11/2025 2:10 PM EDT Preop examination ECG 12-LEAD Routine 01/11/2025 1:48 PM EDT Preop examination documented in this encounter Results * Prothrombin Time-INR (01/11/2025 2:10 PM EDT) Prothrombin Time 12.4 10.9 - 12.4 SEC [facility] INTERNATIONAL NORM RATIO 1.1 0.9 - 1.1 [facility] Comment:INTERNATIONAL NORMAL IZED RATIO (INR) REFERENCE RANGES Reference RangeFor patients not on anticoagulant therapy: 0.9 - 1.1INR ranges for oral anticoagulanttherapy:For prevention and treatment of venous thrombosis and pulmonary embolism: 2.0 - 3.0For acute myocardial infarction with aspirin therapy: 2.0 - 3.0For acute myocardial infarction without aspirin therapy: 3.0 - 4.0For patients with mechanical prosthetic heart valves: 2.5 - 3.5 Blood Venous blood specimen / Unknown 01/11/2025 2:10 PM EDT 01/11/2025 5:37 PM EDT us Analy Chen MD LAB BLOOD ORDERABLES Final Re sult [facility] [address] [place] [address] [phone] * ECG 12 lead (01/11/2025 1:48 PM EDT) Narrative Analy Chen MD - 01/11/2025 1:48 PM EDT Simus arrhythmia,RSR inv1 HR 75 bpm, normal variant us Analy Chen MD ECG ORDERABLES Final Result documented in this encounter Visit Diagnoses Diagnosis Preop examination- Primary Unspecified pre-operative examination documented in this encounter Additional Health Concerns Assessment Noted Time PHQ-9 Depression Total Score: 10 12/25/ 025 9:07 AM EST documented as of this encounter Care Teams Rn Surgical Relationship Specialty Start Date End Date Nai Menendez MD [address] [place] [id number] PCP - General Internal Medicine 09/25/24 Phuong Fink Speech Lang PathElevator Constructor Hydraulic 12/05/24 documented as of this encounter
--- OUTSIDE RECORDS SUMMARY | 2025-01-11 17:57 | XMS_ITS | Encounter Summary ---
Author Organization [employer] Address [address] [facility] 7 [place] [address] Care Team Providers Care Outside Sales Consultant Name Role Phone Nai Menendez MD Primary Care Provider [phone] Reason for Visit * Reason Onset Date Comments Results 12/20/2024 Encounter Details Date Type Department Care Team ([facility] Contact Info) Description 12/20/2024 Telephone [facility] CHC MED & PEDS [address] [place] [address] Nai Menendez MD [address] [place] [address] Results Social History Tobacco Use Types Packs/Day [...] 9:00 AM EDT Office Visit [facility] CHC MED & PEDS [address] [place] [address] Nai Menendez MD [address] [place] [address] documented as of this encounter Visit Diagnoses Not on filedocumented in this encounter Additional Health Concerns Assessment Noted Time PHQ-9 Depression Total Score: 4 02/02/20 24 9:37 AM EDT documented as of this encounter Care Teams Outside Sales Consultant Relationship Specialty Start Date End Date Nai Menendez MD [address] [place] [address] PCP - General Internal Medicine 09/25/24 Phuong Fikn Director Of Retail OperationsMetal Furniture Assembler 12/05/24 documented as of this encounter
--- OUTSIDE RECORDS SUMMARY | 2025-01-11 17:57 | XMS_ITS | Encounter Summary ---
Author Organization [employer] Address [address] [facility] 7t [place] [address] Care Team Providers Care Bioinformatics Specialist Name Role Phone Nai Menendez MD Primary Care Provider [phone] Encounter Details Date Type Department Care Team (Late st Contact Info) Description 12/21/2024 Telephone [facility] MEDICINE [address] [place] [address] Nai Menendez MD [address] [place], [place] [phone] Social History Tobacco Use Types Packs/Day Years [...] Upcoming Encounters Date Type Department Care Team ([facility] st Contact Info) Description 02/12/2025 9:00 AM EDT Office Visit [facility] MED & PEDS [address] [place] [address] Nai Menendez MD [address] [place] [address] documented as of this encounter Visit Diagnoses Not on filedocumented in this encounter Additional Health Concerns Assessment Noted Time PHQ-9 Depression Total Score: 4 02/02/20 9:37 AM EDT documented as of this encounter Care Teams Bioinformatics Specialist Relationship Specialty Start Date End Date Nai Menendez MD [address] [place] [address] PCP - General Internal Medicine 09/25/24 Phuong Fink Linux Systems AnalystField Handyman 12/05/24 documented as of this encounter
--- OUTSIDE RECORDS SUMMARY | 2025-01-11 17:57 | XMS_ITS | Encounter Summary ---
Author Organization [employer] Address [address] [facility] 7 [place] [address] Care Team Providers Care Plant Security Guard Name Role Phone Nai Menendez MD Primary Care Provider [phone] Reason for Visit * Reason Onset Date Comments Pt1 10/10/2024 Encounter Details Date Type Department Care Team ([facility] Contact Info) Description 10/10/2024 Telephone [facility] CHC MED & PEDS [address] [place] [address] Nai Menendez MD [address] [place] [address] Pt1 Social History Tobacco Use Types Packs/Day [...] Provider name or facility name: [facility] Address: [address] [place] [address] [place] [address] Escort needed: Y/N: No Do you have a wheelchair: Y/N: No If yes- Manual or electric: n/a Visits: 2-3 times a month for 6 months documented in this encounter Plan of Treatment Upcoming Encounters Date Type Department Care Team ([facility] st Contact Info) Description 02/12/2025 9:00 AM EDT Office Visit [facility] CHC MED & PEDS [address] [place] [address] Nai Menendez MD [address] [place] [address] documented as of this encounter Visit Diagnoses Not on filedocumented in this encounter Additional Health Concerns Assessment Noted Time PHQ-9 Depression Total Score: 4 02/02/20 24 9:37 AM EDT documented as of this encounter Care Teams Plant Security Guard Relationship Specialty Start Date End Date Nai Menendez MD [address] [place] [address] PCP - General Internal Medicine 09/25/24 Phuong Fink Oil Burner MechanicJava Web Developer 12/05/24 documented as of this encounter
--- OUTSIDE RECORDS SUMMARY | 2025-01-11 17:57 | XMS_ITS | Encounter Summary ---
Author Organization [employer] Address [address] [facility] 7t [place] [address] Care Team Providers Care Relations Director Name Role Phone Analy Chen MD Primary Care Provider [phone] Nai Menendez MD Primary Care Provider [phone] Reason for Visit * Reason Onset Date Comments Call Back Request 06/09/2024 Encounter Details Date Type Department Care Team (Late st Contact Info) Description 06/09/2024 Telephone [facility] MEDICINE [address] [place] [address] Analy Chen MD [address] [place] [address] Call Back Request Social History Tobacco Use [...] [facility] MED & PEDS [address] [place] [address] Nai Menendez MD [address] [place] [address] documented as of this encounter Visit Diagnoses Not on filedocumented in this encounter Additional Health Concerns Assessment Noted Time PHQ-9 Depression Total Score: 4 02/02/20 24 9:37 AM EDT documented as of this encounter Care Teams Relations Director Relationship Specialty Start Date End Date Analy Chen MD [address] [place] [id number] PCP - General Internal Medicine 02/02/24 09/24/24 Nai Menendez MD [address] [place] [address] PCP - General Internal Medicine 09/25/24 Phuong Fink Marketing Project ManagerPhysical Education Aide 12/05/24 documented as of this encounter
--- OUTSIDE RECORDS SUMMARY | 2025-01-11 17:57 | XMS_ITS | Encounter Summary ---
Author Organization [employer] Address [address] [facility] 7 [place] [address] Care Team Providers Care Cruise Director Name Role Phone Nai Menendez MD Primary Care Provider [phone] Reason for Referral * Consultation (Routine) - Authorized Specialty Diagnoses / Procedures Referred By Rolando leyva Referred To Contact Urology Diagnoses Bulge in groin area Severe right groin pain Dysuria Nai Menendez MD [address] [place] [address] Phone: tel: fax: [facility]rology [address] [place] [address] Phone: tel: fax: Referral ID Status Reason Start Date Expiration Date Visits Requested Visits Authorized [id number] Authorized Specialty Services Required 12/12/2024 12/12/2025 1 1 * Consultation (Routine) - Closed Specialty Diagnoses / Procedures Referred By Rolando leyva Referred To Contact General Surgery Diagnoses Bulge in groin area Nai Menendez MD [address] [place] [address] Phone: tel: fax: [address] Phone: tel: fax: Referral ID Status Reason Start Date Expiration Date V isits Requested Visits Authorized [id number] Closed Specialty Services Required 12/12/2024 12/12/2025 1 1 Reason for Visit * Reason Comments Groin Pain Encounter Details Date Type Department Care Team ([facility] st Contact Info) Description 12/12/2024 10:45 AM EST Office Visit [facility] CHC MED & PEDS [address] [place] [address] Nai Menendez MD [address] [place] [address] Left hip pain (Primary Dx); Primary hypertension; [...] CONSTIPATION Sod Fluoride-Potassium Nitrate 1.1-5 % paste [place] teeth for 2 minutes, morning and night. [...] mg) by mouth Once per day. 30 [id number] [DISCONTINUED] cyclobenzaprine (Flexeril) 10 MG tablet Take [...] Description 02/12/2025 9:00 AM EDT Office Visit [facility] CHC MED & PEDS [address] [place] [address] Nai Menendez MD [address] [place] [address] Scheduled Referrals Name Type Priority Associated Diagnoses [...] documented as of this encounter Care Teams Cruise Director Relationship Specialty Start Date End Date Nai Menendez MD [address] [place] [address] PCP - General Internal Medicine 09/25/24 Phuong Fink Refining Machine OperatorRailroad Firer 12/05/24 documented as of this encounter
--- OUTSIDE RECORDS SUMMARY | 2025-01-11 17:57 | XMS_ITS | Clinical Summary ---
Author Organization [employer] Address [address] [facility] 7t [place] [address] Care Team Providers Care Director Maternal Child Name Role Phone Nai Menendez MD Primary Care Provider [phone] Allergies No known active allergies Medications * This document contains information received from the source organization and may not represent a complete record from that organization. omeprazole (PriLOSEC) [address] capsule Take 20 mg by mouth 2 times daily. 01/27/20 24 Active oxyCODONE (Roxicodone) 5 MG immediate release tablet Take 5 mg by mouth every 6 (six) hours if needed. 01/28/20 24 Active Senna-Time 8.6 MG tablet TAKE 1 TABLET BY MOUTH TWO TIMES A DAY NEEDED FOR CONSTIPATION 01/27/20 24 Active Sod Fluoride-Potass ium Nitrate 1.1-5 % pasteIndication s:Dental caries [place] teeth for 2 minutes, morning and night. Spit, do not rinse. Do not eat or drink anything for 30 minutes following brushing. 112 g 3 03/15/20 24 Active Blood Pressure kitIndications: Primary hypertension,Ot her chest pain To check the BP Daily. Keep the log for the next visit. 1 kit 03/20/20 24 Active SUMAtriptan (Imitrex) 25 MG tabletIndicatio ns:Migraine with aura and without status migrainosus, not intractable Take 1 tablet (25 mg) by mouth 1 (one) time if needed for migraine for up to 36 doses. May repeat dose once in 2 hours if no relief. Do not exceed 2 doses in 24 hours. 9 tablet 3 04/07/20 24 Active chlorhexidine (Peridex) 0.12 % solution Swish 15 mL morning and night for 1 minute. Spit, do not swallow. Do not eat or drink for 30 minutes following use. 473 mL 05/18/20 24 Active tadalafil (Cialis) 5 MG tabletIndicatio ns:Erectile disorder,Dysuri a Take 1 tablet (5 mg) by mouth Once per day. 30 tablet 3 05/30/20 24 Active lisinopril (Prinivil) 20 MG tabletIndicatio ns:Primary hypertension Take 1 tablet (20 mg) by mouth Once per day. 30 tablet 11 05/30/20 24 2024 Active Diclofenac Sodium 1 % gelIndications: Right inguinal pain APPLY TOPICALLY TO THE AFFECTED AREA THREE TIMES DAILY 100 g 3 06/14/20 24 Active chlorhexidine (Peridex) 0.12 % solutionIndicat ions:History of tooth extraction, unspecified edentulism class Swish 15 mL morning and night for 1 minute. Spit, do not swallow. Do not eat or drink for 30 minutes following use. 473 mL 07/14/20 24 Active lidocaine (Lidoderm) 5 % patch APPLY 1 PATCH TOPICALLY EVERY MORNING AND REMOVE AND DISCARD AFTER 12 HOURS 30 patch 3 10/02/20 24 Active cetirizine (ZyrTEC) 10 MG tabletIndicatio ns:Nasal congestion Take 1 tablet (10 mg) by mouth Once per day. 30 tablet 11/30/19 25 2025 Active Omeprazole 20 MG tablet delayed-release Indications:Gas troesophageal reflux disease without esophagitis Take 1 tablet (20 mg) by mouth Once per day. 30 tablet 11/30/19 25 Active acetaminophen (Tylenol 8 Hour) 650 MG ER tabletIndicatio ns:Severe right groin pain,Primary hypertension Take 1 tablet (650 mg) by mouth every 8 (eight) hours if needed for mild pain. Do not crush, chew, or split. 90 tablet 11/30/19 25 2024 Active cyclobenzaprine (Flexeril) 10 MG tablet Take 1 tablet (10 mg) by mouth 3 times daily for 10 days. 30 tablet 12/12/19 25 Active gabapentin (Neurontin) 300 MG capsuleIndicati ons:Left hip pain Take 1 capsule (300 mg) by mouth 3 times daily. 90 capsule 3 12/12/19 25 Active amLODIPine (Norvasc) 5 MG tabletIndicatio ns:Primary hypertension Take 1 tablet (5 mg) by mouth Once per day. 30 tablet 11 12/12/19 25 2025 Active mirtazapine (Remeron) 7.5 MG tabletIndicatio ns:Anxiety,Adju stment insomnia TAKE 1 TABLET(7.5 MG) BY MOUTH AT BEDTIME 30 tablet 1 12/27/19 25 Active tamsulosin (Flomax) 0.4 MG 24 hr capsuleIndicati ons:Dysuria TAKE 2 CAPSULES(0.8 MG) BY MOUTH DAILY 30 capsule 11 01/04/20 25 Active omeprazole OTC (PriLOSEC OTC) 20 MG EC tablet Take 20 mg by mouth. 01/27/20 24 Active tamsulosin (Flomax) 0.4 MG 24 hr capsuleIndicati ons:Dysuria Take 2 capsules (0.8 mg) by mouth Once per day. 30 capsule 11 07/06/20 24 2024 Discontinued mirtazapine (Remeron) 7.5 MG tabletIndicatio ns:Anxiety,Adju stment insomnia Take 2 tablets (15 mg) by mouth at bedtime. 30 tablet 1 11/30/19 25 2024 Discontinued Active Problems Problem Noted Date [...] organization. Date Type Department Care Team Description 01/11/2025 1:30 PM EDT Office Visit [facility] [address] [place] [address] Analy Chen MD Preop examination (Primary Dx) 01/11/2025 Travel 01/02/2025 [facility] Only [facility] [address] [place] [address] ProviderDarrian MD 01/02/2025 Refill [facility] [address] [place] [address] Nai Menendez MD Dysuria 12/27/2024 Travel 12/27/2024 Refill [facility] [address] [place] [address] Analy Chen MD Anxiety; Adjustment insomnia 12/21/2024 Telephone [facility] [address] [place] [address] Nai Menendez MD pre op 12/21/2024 Telephone [facility] [address] [place] [address] Nai Menendez MD 12/20/2024 Telephone [facility] [address] [place] [address] [phone] Nai Menendez MD Results 12/18/2024 Travel 12/12/2024 10:45 AM EST Office Visit [facility] [address] [place] [address] Nai Menendez MD Left hip pain (Primary Dx); Primary hypertension; Bulge in groin area; Severe right groin pain; Dysuria 12/11/2024 Travel 12/11/2024 Telephone [facility] [address] [place] [address] Nai Menendez MD Nurse Triage 12/05/2024 Telephone [facility] [address] [place] [address] Nai Menendez MD Care Coordination ([facility] Service Officer) 12/01/[address] [address] Nai Menendez MD Medication Question 11/30/2024 1:45 PM EST Office Visit [facility] [address] [place] [address] Nai Menendez MD Severe right groin pain (Primary Dx); Primary hypertension; Nasal congestion; Gastroesophageal reflux disease without esophagitis; Anxiety; Adjustment insomnia; Left hip pain; Right upper quadrant pain 11/30/2024 Travel 11/29/2024 Telephone [facility] [address] [place] [address] Nai Menendez MD CHART PREP 11/24/2024 Travel 11/23/2024 Telephone [facility] [address] [place] [address] Nai Menendez MD recall appt (Pt needs appt) 10/24/2024 Orders Only [facility] External Provider, [facility] from Last 3 Months Immunizations Name Administration [...] Mass Index 25.28 01/11/2025 1:47 PM EDT Plan of Treatment Upcoming Encounters Date Type Department Care Team (Late st Contact Info) Description 02/12/2025 9:00 AM EDT Office Visit [facility] [address] [place] [address] Nai Menendez MD [address] [place] [address] Health Maintenance Due Date Last Done Comments [...] Routine 01/11/2025 1:48 PM EDT Preop examination ECG 12-LEAD Routine 01/01/2025 3:54 PM EST AMB REFERRAL TO GENERAL SURGERY Routine 12/20/2024 Bulge in groin area US ABDOMEN COMPLETE Routine 12/16/2024 8 :38 AM EST Right upper quadrant pain US SCROTUM Routine 10/24/2024 8:25 AM EST PERIODIC ORAL EVALUATION - ESTABLISHED PATIENT Routine 08/15/2024 9:30 AM EDT Periodontal disease Defective dental shinto Symptomatic irreversible pulpitis PROPHYLAXIS - ADULT Routine [...] Recently Relevant to Health Maintenance Results * Prothrombin Time-INR (01/11/2025 2:10 PM EDT) Prothrombin Time 12.4 10.9 - 12.4 SEC [facility] INTERNATIONAL NORM RATIO 1.1 0.9 - 1.1 [facility] Comment:INTERNATIONAL NORMAL IZED RATIO (INR) REFERENCE [...] MD LAB BLOOD ORDERABLES Final Re sult [facility] [address] [place] [address] [phone] * ECG 12 lead (01/11/2025 1:48 PM EDT) Only the most recent of2 resultswithin the time period is included. Narrative Analy Chen MD - 01/11/2025 1:48 PM EDT Simus arrhythmia,RSR inv1 HR 75 bpm, normal variant us Analy Chen MD ECG ORDERABLES Final Result * Referral to General Surgery (12/20/2024) us Nai Menendez MD OUTPATIENT REFERRAL ORDERAB LES Final Result * US Abdomen Complete (12/16/2024 8:38 AM EST) Anatomical Region Laterality Modality Abdomen Ultrasound 12/16/2024 8:38 AM EST Narrative 12/16/2024 8:39 AM EST ? [facility] ?[address] ? [place] [address] ? Ultrasound Report ? Signed ? Patient: Danae,Osei ?MR#: [id number] ?? 9 ? : 1970 ?Acct:[id number] ? Age/Sex: 54 / M ?ADM Date: 14/25 ? Loc: HO.HMGCX ? Attending Dr: Nai Menendez MD ? Ordering Physician: Nai Menendez MD ?? Date of Service: 12/15/24 ?? Procedure(s): US abdomen complete ?? Accession Number(s): [id number] ? cc: Nai Menendez MD ? CLINICAL [...] on ?? 12/16/2024 08:38:53 ? Dictated By: ?Emiliaon Roberts MD ? Signed By: ?<Electronically signed by Emiliano Roberts MD in OV> ?12/16/24 0839 ? DD/ 0838 ? TD/TT: 12/16/24 0838 ? Consumer Loan Underwriter: ? Procedure Note Angelica Tovar - 12/16/2024 [facility] [address] [place] [address] Ultrasound Report Signed Patient: Osei Fink#: [id number] 9 : 1970Acct:[id number] Age/Sex: 54 / MADM Date: 12/15/24 Loc: HO.HMGCX Attending Dr: Nai Menendez MD Ordering Physician: Nai Menendez MD Date of Service: 12/15/24 Procedure(s): US abdomen complete Accession Number(s): [id number] cc: Nai Menendez MD CLINICAL HISTORY: Right [...] signed by Emiliano Roberts MD in OV> 12/16/24 0839 DD/ TD/TT: 12/16/24837 Consumer Loan Underwriter: Nai Menendez MD IMG US PROCEDURES Edited Re sult - Final * US Scrotum (10/24/2024 8:25 AM EST) Anatomical Region Laterality Modality Body Ultrasound 10/24/2024 8:25 AM EST Narrative 12/05/2024 11:39 AM EST ? [facility] ?[address] ? [place] [address] ? Ultrasound Report ? Signed ? Patient: Danae,Osei ?MR#: [id number] ?? 9 ? : 1970 ?Acct:[id number] ? Age/Sex: 54 / M ?ADM Date: 12/24/24 ? Loc: HO.HMGCX ? Attending Dr: Gayatri BOJORQUEZ ? Ordering Physician: Gayatri Ribeiro ?? Date of Service: 10/24/24 ?? Procedure(s): US scrotum ?? Accession Number(s): [id number] ? cc: Nai Menendez MD; Gayatri Ribeiro [...] 11:36 AM EST RP ? Dictated By: ?Kelly,Jeffrey S MD ? Signed By: ?<Electronically signed by Jeffrey S MD Kelly in OV> ?12/05/24 1136 ? DD/ 0825 ? TD/TT: 10/24/24 0844 ? Consumer Loan Underwriter: MSM ? Procedure Note Donotuseinterpreter, Image - 12/05/2024 [facility] [place] [place] [facility] [address] [place], [place] [address] Ultrasound Report Signed Patient: Antoine Fink#: [id number] 9 : 1970Acct:[id number] Age/Sex: 54 / MADM Date: 10/24/24 Loc: HO.HMGCX Attending Dr: Gayatri BOJORQUEZ Ordering Physician: Gayatri Ribeiro Date of Service: 10/24/24 Procedure(s): US scrotum Accession Number(s): [id number] cc: Nai Menendez MD; Gayatri Ribeiro EXAMINATION: [...] 12/05/2024 11:36 AM EST RP Dictated By: Jeffrey Mendoza MD Signed By: <Electronically signed by Jeffrey Mendoza MD in OV> 12/05/24 1136 DD/ 0825 TD/TT: 10/24/24 0844 Consumer Loan Underwriter: SAT[facility] External Provider IMG US PROCEDURES Final Result * Cologuard?? colon cancer screening (02/21/2024 7:45 AM EDT) Cologuard Result Negative Negative 03/01/20 3:29 AM EDT [facility] (CLIA #:[id number]) Comment: NEGATIVE TEST RESULT. A negative Cologuard [...] cancer. ??Following a negative Cologuard result, the [place] [employer] Society and U.S. Multi-Society Task Force screening guidelines recommend a Cologuard re-screening interval of 3 years. References: [place] [employer] Guideline for Colorectal Cancer Screening: https://www.cancer.org/cancer/hqavn-lfrwaq-xheugd/xganukhwi-djwdxzawa-bmhtejq/ac s-rec ommendations.html.; Peña DK, Ra CR, Alisa BakerK, Colorectal Cancer Screening: Recommendations for Physicians and Patients from the U.S. Multi-Society Task Force on Colorectal Cancer Screening , Am J Gastroenterology 2017; 112:3186-2073. TEST DESCRIPTION: Composite algorithmic analysis of stool [...] (Lela Jones al, N Engl J Med 2014;370(14):9225-4589.) Cologuard may produce a false negative or false positive result (no colorectal cancer or precancerous polyp present at colonoscopy follow up). A negative Cologuard test result does not guarantee the absence of CRC or advanced adenoma (pre-cancer). The current Cologuard screening interval is every 3 years. ([place] [employer] Society and U.S. Multi-Society Task Force). Cologuard performance data in a 10,000 patient pivotal study using colonoscopy as the reference method can be accessed at the following location: www.DocuSpeak.ENDOGENX/results. Additional description of the Cologuard test process, warnings and precautions can be found at www.[employer] Mediard.com. Stool specimen (specimen) 02/21/2024 7:45 AM EDT 02/23/2024 10:44 AM EDT Analy Chen MD LAB MOLECULAR DIAGNOSTICS ORD ERABLES Final Result [facility] (CLIA #:[id number]) [place] [address] [place] [address], * Hepatitis A,B,C Profile (02/02/2024 10:43 AM EDT) Hepatitis A IgM Nonreactive Nonreactive [facility] Comment:IgM antibodies to QUINTANILLA V not detected; does not exclude earlyacute or recovered HAV infection. ~Hepatitis B Surface Antibody NONREACTIVE Nonreactive [facility] Comment:Nonreactive: < 8.00 mIU/mL Hepatitis B Core Antibody Nonreactive Nonreactive [facility] Hepatitis C Antibody Nonreactive Nonreactive [facility] Comment:Antibodies to HCV no t detected; does not exclude early acuteHCV infection. Hepatitis B Surface Ag Negative Negative [facility] Blood Venous blood specimen / Unknown 02/02/2024 10:43 AM EDT 02/02/2024 2:10 PM EDT Analy Chen MD LAB BLOOD ORDERABLES Final Re sult Performing Organization Address City/[facility]/ZIP Co de Phone Number [facility] [address] [place] [phone] * HIV-1/2 Antigen and Antibodies, Fourth Generation, with Reflexes (02/02/2024 10:43 AM EDT) HIV AB/AG Nonreactive Nonreactive [facility] Comment:HIV-1 p24 Ag and/or HIV-1/HIV-2 Ab not detected.A test result that is nonreactive does not exclude thepossibility of exposure to or infection with HIV-1 and/orHIV-2. Nonreactive results in this assay for individualswith prior exposure to HIV-1 and/or HIV-2 may be due toantigen and antibody levels that are below the limit ofdetection of this assay.The [employer] HIV Ag/Ab Combo assay result andsupplemental assay results should be interpreted inconjunction with the patient's clinical presentation,history and other laboratory results. If the results areinconsistent with clinical evidence, additional testing issuggested to confirm the result. Blood Venous blood specimen / Unknown 02/02/2024 10:43 AM EDT 02/02/2024 2:10 PM EDT us Analy Chen MD LAB BLOOD ORDERABLES Final Re sult [facility] [address] [place] [phone] * (ABNORMAL) Lipid Panel, Standard (02/02/2024 10:43 AM EDT) Triglycerides 143 <150 mg/dL [facility] Comment:Desirable Triglyceri de: less than 150 mg/dLBorderline High Triglyceride 150-199 mg/dLHigh Triglyceride: 200-499 mg/dLVery High Triglyceride: greater than or equal to 5OO mg/dL Cholesterol 174 <200 mg/dL [facility] Comment:Desirable Cholestero l: less than 200 mg/dLBorderline High Cholesterol: 200-239 mg/dLHigh Cholesterol: greater than 239 mg/dL LDL Cholesterol Calculated 105(H) <100 mg/dL [facility] Comment:Desirable LDL: less than 100 mg/dLNear Optimal/Above Optimal LDL: 110- 129 mg/dLBorderline High LDL: 130-159 mg/dLHigh LDL: 160-189 mg/dLVery High LDL: greater than or equal to 190 mg/dL HDL Cholesterol 41 >40 mg/dL [facility] Comment:Desirable HDL: great er than 40 mg/dL Note: This HDL assay may give artificially low results in patients with liver disease. Blood Venous blood specimen / Unknown 02/02/2024 10:43 AM EDT 02/02/2024 2:10 PM EDT us Analy Chen MD LAB BLOOD ORDERABLES Final Re sult [facility] [address] [place] [address] [phone] from Last 3 Months or Most Recently Relevant to Health Maintenance [place] [facility] STAND ADULT Care Teams Director Maternal Child Relationship Specialty Start Date End Date Nai Menendez MD [address] [place] [phone] PCP - General Internal Medicine 09/25/24 Phuong Fink Chief Of PlanningCable Armorer 12/05/24
--- OUTSIDE RECORDS SUMMARY | 2025-01-11 17:57 | XMS_ITS | Encounter Summary ---
Author Organization [employer] Address [address] [facility] 7 [place] [address] Care Team Providers Care Lens Gauger Name Role Phone Nai Menendez MD Primary Care Provider [phone] Reason for Visit * Reason Comments Med Refill Encounter Details Date Type Department Care Team ([facility] Contact Info) Description 12/27/2024 Refill [facility] [address] [place], [place] [phone] Analy Chen MD [address] [place] [address] Anxiety; Adjustment insomnia Social History Tobacco Use [...] Upcoming Encounters Date Type Department Care Team ([facility] st Contact Info) Description 02/12/2025 9:00 AM EDT Office Visit [facility] [address] [place] [address] Nai Menendez MD [address] [place] [address] documented as of this encounter Visit Diagnoses Diagnosis Anxiety Anxiety state, unspecified Adjustment insomnia Insomnia, unspecified documented in this encounter Additional Health Concerns Assessment Noted Time PHQ-9 Depression Total Score: 10 025 9:07 AM EST documented as of this encounter Care Teams Lens Gauger Relationship Specialty Start Date End Date Nai Menendez MD [address] [place] [address] PCP - General Internal Medicine 09/25/24 Phuong Fink Credit HistorianDock Manager 12/05/24 documented as of this encounter
--- OUTSIDE RECORDS SUMMARY | 2025-01-11 17:57 | XMS_ITS | Encounter Summary ---
Author Organization [employer] Address [address] [facility] [address] 7[address] [place] [address] Care Team Providers Care Hay Baler Name Role Phone Nai Menendez MD Primary Care Provider [phone] Encounter Details Date Type Department Care Team [facility] [address] [place] [address] Nai Menendez MD [address] [place] [address] documented as of this encounter Visit Diagnoses Not on filedocumented in this encounter Additional Health Concerns Assessment Noted Time PHQ-9 Depression Total Score: 10 025 9:07 AM EST documented as of this encounter Care Teams Hay Baler Relationship Specialty Start Date End Date Nai Menendez MD [address] [place] [address] PCP - General Internal Medicine 09/25/24 Phuong Fink Obstetrics Scrub NurseWastewater Plant Operator 12/05/24 documented as of this encounter
[2025-01-11 17:58] LABS: Appearance Urine Clear; Color Urine Yellow; Glucose Urine UA Negative (Negative); Leukocyte Esterase Urine Negative (Negative); Nitrite Urine Negative (Negative); PH 7.5 (5.0-9.0); Urine Blood Negative (Negative); Urine Ketones Negative (Negative); Urine Protein Negative (Neg-Trace)
--- OUTSIDE RECORDS SUMMARY | 2025-01-11 17:58 | XMS_ITS | Encounter Summary ---
Author Organization [facility] Address [address] [place] [address] Care Team Providers Care Eye Physician Name Role Phone Nai Menendez MD Primary Care Provider [phone] Reason for Visit * Reason Comments Consult New patient Bulge In groin area Encounter Details Date Type Department Care Team ([facility] st Contact Info) Description 12/20/2024 8:45 AM EST Office Visit Bariatric Surgery - [place] [address] [place] [address] Zayra Cuevas MD [address] [place] [address] Recurrent inguinal hernia of right [...] About a month ago had U/S at [facility] which the patient states showed bilateral ing [...] Body: 431 mGy*cm. COMPARISON: 11/17/2023, 11/01/2023. FINDINGS: Sorting Livestock Worker View Findings, Lines and Tubes: None. [...] and I agree with this report. WSN: [id number] Ordering Physician: Gary Christie Signature Line Dictated By: Raman Deutsch MD Dictated Date/Time: 06/01/24 8:43 am Reviewed By: Kim Murillo MD Signed By: Kim Mruillo MD Signed Date/Time: 06/01/24 8:48 am Transcribed [...] and I agree with this report. WSN: [id number] Ordering Physician: Pj Thomas Signature Line Dictated [...] to optimize exposure parameters. COMPARISON: None. FINDINGS: Sorting Livestock Worker View Findings, Lines and Tubes: None. [...] Mildly fatty liver. Results were relayed by [facility] by Dr. Deutsch to Sydnie Solitario DO on 11/01/2023 6:30 AM. I have personally reviewed the images and I agree with this report. WSN: [id number] Ordering Physician: Sydnie Solitario Signature Line Dictated [...] the other. From his medical record at [facility], it appears that he has seen the [...] Description 01/18/2025 10:30 AM EDT Hospital Encounter [facility] [place] [address] [place] [phone] Zayra Cuevas MD [address] [address] 01/18/2025 10:30 AM EDT - 01/18/2025 1:00 PM EDT Surgery [facility] [place] [address] [place] [phone] Zayra Cuevas MD [address] [address] DAVINCI REPAIR RECURRENT RIGHT INGUINAL HERNIA; ? LEFT W/MESH REMOVAL OF RIGHT INGUINAL REGION [69688 (CPT??)] 02/05/2025 9:15 AM EDT Office Visit Bariatric Surgery - [place] [address] [facility] [address] [place] [address] Zayra Cuevas MD 175 [facility] [address] [place] [address] Scheduled Procedures Name Priority Associated [...] repair documented in this encounter Care Teams Eye Physician Relationship Specialty Start Date End Date Nai Menendez MD [address] [place] [address] PCP - General Internal Medicine 12/14/24 documented as of this encounter
--- OUTSIDE RECORDS SUMMARY | 2025-01-11 17:58 | XMS_ITS | Encounter Summary ---
Author Organization [employer] Address [address] [facility] 7t [place] [address] Care Team Providers Care Placement Specialist Name Role Phone Analy Chen MD Primary Care Provider [phone] Nai Menendez MD Primary Care Provider [phone] Reason for Visit * Reason Onset Date Comments ER Follow-up 02/11/2024 Encounter Details Date Type Department Care Team (Late st Contact Info) Description 02/11/[address] [facility] [address] [place] [address] Analy Chen MD [address] [place], [place] [phone] ER Follow-up Social History Tobacco Use Types [...] ED visit on : Date: 02/08 Hospital: [facility] Seen for: Skin Lump had surgery on 01/26 for hernia and still had pain with a lump Patient advised will forward to team nurse for follow up documented in this encounter Plan of Treatment Upcoming Encounters Date Type Department Care Team (Late st Contact Info) Description 02/12/2025 9:00 AM EDT Office Visit [facility] [address] [place] [address] Nai Menendez MD [address] [place] [address] documented as of this encounter Visit Diagnoses Not on filedocumented in this encounter Additional Health Concerns Assessment Noted Time PHQ-9 Depression Total Score: 4 02/02/20 24 9:37 AM EDT documented as of this encounter Care Teams Placement Specialist Relationship Specialty Start Date End Date Analy Chen MD [address] [place] [address] PCP - General Internal Medicine 02/02/24 09/24/24 Nai Menendez MD [address] [place] [address] PCP - General Internal Medicine 09/25/24 Phuong Fink Optical Fabrication TechnicianVoip Technician 12/05/24 documented as of this encounter
--- OUTSIDE RECORDS SUMMARY | 2025-01-11 17:58 | XMS_ITS | Clinical Summary ---
Author Organization [facility] Address [address] [place] [address] Care Team Providers Care Policy Service Coordinator Name Role Phone Unavailable Primary Care Provider [...] 01/23/2017 Imm-Zoster, Recombinant (1 of 2) 01/23/2022 [id number] (3 - season) 2024 021, 03/06/2021 Imm-Influenza (#1) 2024 Alcohol and Drug Screen 11/01/2024 Depression Annual Screen 11/01/2024 Insurance COVID19 [facility] UNINSURED TESTING AND TREATMENT FUND
--- OUTSIDE RECORDS SUMMARY | 2025-01-11 17:58 | XMS_ITS | Encounter Summary ---
Author Organization [facility] Address [address] [place] [address] Care Team Providers Care Classification Analyst Name Role Phone Nai Menendez MD Primary Care Provider [phone] Encounter Details Date Type Department Care Team (Late st Contact Info) Description 12/20/2024 Telephone General Surgery - [place] [address] [address] Yolande Avendano MA Social History [...] Description 01/18/2025 10:30 AM EDT Hospital Encounter [facility] [place] [address] [place] [address] Zayra Cuevas MD [address] [address] 01/18/2025 10:30 AM EDT - 01/18/2025 1:00 PM EDT Surgery [facility] [place] [address] [place] [phone] Zayra Cuevas MD [address] [address] DAVINCI REPAIR RECURRENT RIGHT INGUINAL HERNIA; ? LEFT W/MESH REMOVAL OF RIGHT INGUINAL REGION [30159 (CPT??)] 02/05/2025 9:15 AM EDT Office Visit Bariatric Surgery - [place] 175 [facility] [address] [place] [address] Zayra Cuevas MD 175 [facility] [address] [place] [address] Scheduled Procedures Name Priority Associated Diagnoses Date/Ti me REPAIR HERNIA INGUINAL BILATERAL ROBOT Recurrent right inguinal hernia Hx of bilateral inguinal hernia repair 01/18/2025 10:30 AM EDT documented as of this encounter Visit Diagnoses Not on filedocumented in this encounter Care Teams Classification Analyst Relationship Specialty Start Date End Date Nai Menendez MD [address] [place] [address] PCP - General Internal Medicine 12/14/24 documented as of this encounter
--- OUTSIDE RECORDS SUMMARY | 2025-01-11 17:58 | XMS_ITS | Encounter Summary ---
Author Organization [employer] Address 75 [facility] 7 [place] [address] Care Team Providers Care Players Club Representative Name Role Phone Nai Menendez MD Primary Care Provider [phone] Reason for Visit * Reason Comments Med Refill Encounter Details Date Type Department Care Team ([facility] Contact Info) Description 01/02/2025 Refill [facility] MED & PEDS [address] [place], [place] [phone] Nai Menendez MD 505 [place] [address] Dysuria Social History Tobacco Use Types Packs/Day [...] Upcoming Encounters Date Type Department Care Team ([facility] st Contact Info) Description 02/12/2025 9:00 AM EDT Office Visit [facility] MED & PEDS [address] [place] [address] Nai Menendez MD [address] [place] [address] documented as of this encounter Visit Diagnoses Diagnosis Dysuria documented in this encounter Additional Health Concerns Assessment Noted Time PHQ-9 Depression Total Score: 10 025 9:07 AM EST documented as of this encounter Care Teams Players Club Representative Relationship Specialty Start Date End Date Nai Menendez MD [address] [place] [address] PCP - General Internal Medicine 09/25/24 Phuong Fink Manager Decision SupportPrecision Instrument Maker And Repairer 12/05/24 documented as of this encounter
--- OUTSIDE RECORDS SUMMARY | 2025-01-11 17:58 | XMS_ITS | Encounter Summary ---
Author Organization [employer] Address 75 [facility] 7t [place] [address] Care Team Providers Care Manager Pulmonary Name Role Phone Analy Chen MD Primary Care Provider [phone] Nai Menendez MD Primary Care Provider [phone] Reason for Visit * Reason Onset Date Comments Nurse Triage 02/09/2024 Encounter Details Date Type Department Care Team (Late st Contact Info) Description 02/09/2024 Telephone [facility] MEDICINE [address] [place] [address] Analy Chen MD 505 [place] [address] Nurse Triage Social History Tobacco Use Types [...] of previous surgery. No apts available in [facility] today or tomorrow. Pt is advised to come [facility] today for provider to see Pt and [...] 9:00 AM EDT Office Visit [facility] MED & PEDS [address] [place] [address] Nai Menendez MD [address] [place] [address] documented as of this encounter Visit Diagnoses Not on filedocumented in this encounter Additional Health Concerns Assessment Noted Time PHQ-9 Depression Total Score: 4 02/02/20 24 9:37 AM EDT documented as of this encounter Care Teams Manager Pulmonary Relationship Specialty Start Date End Date Analy Chen MD 505 [place] [address] PCP - General Internal Medicine 02/02/24 09/24/24 Nai Menendez MD [address] [place] [address] PCP - General Internal Medicine 09/25/24 Phuong Fink Supervisor Coil WindingBlueprinting And Photocopy Supervisor 12/05/24 documented as of this encounter
[2025-01-11 18:01] LABS: Basophils Absolute Auto 0.1 X10*3/uL (0.0-0.2); Basophils Percent Auto 0.8 % (0-2); Eosinophils Absolute Auto 0.1 X10*3/uL (0.0-0.4); Eosinophils Percent Auto 1.7 % (0-4); Hematocrit 42.7 % (42.0-52.0); Hemoglobin 14.2 g/dl (14.0-18.0); Imm Gran Abs Auto 0.02 X10*3/uL (0.00-0.03); Imm Gran Pct Auto 0.3 % (0.0-0.4); Lymphocytes Absolute Auto 1.7 X10*3/uL (1.2-4.9); Lymphocytes Percent Auto 28.3 % (20-40); Mean Corpuscular HGB Conc 33.3 g/dl (31.0-36.0); Mean Corpuscular Hemoglobin 30.3 pg (27.0-33.0); Mean Platelet Volume 10.4 fL (9.4-12.4); Monocytes Absolute Auto 0.7 X10*3/uL (0.1-1.2); Monocytes Percent Auto 10.8 % (2-11); Neutrophils Absolute Auto 3.5 x10*3/uL (2.0-8.3); Neutrophils Percent Auto 58.1 % (45-73); Platelet Count 239 X10*3/uL (160-400); Red Blood Count 4.69 X10*6/uL (4.60-5.80); Red Cell Distribution Width 12.8 % (11.0-16.0)
[2025-01-11 18:03] LABS: Bacteria Urine None Seen (None Seen); Hyaline Casts Urine 0-2 /LPF (0-2); RBC Urine 0-2 /HPF (0-2); Squamous Epithelial Cell Urine 0-2 /HPF (0-2); WBC Urine 0-5 /HPF (0-5)
[2025-01-11 18:08] LABS: Alanine Aminotransferase 45 U/L (0-40); Alkaline Phosphatase 48 U/L (39-117); Anion Gap 12 (12-20); Aspartate Amino Transferase 23 U/L (5-37); Bilirubin Direct 0.3 mg/dL (0.0-0.5); Bilirubin Total 1.1 mg/dL (0.0-1.0); Blood Urea Nitrogen 19 mg/dL (9-16); Calcium 9.4 mg/dL (8.4-10.2); Carbon Dioxide 28 mmol/L (22-29); Chloride 107 mmol/L (96-108); Estimated Glomerular Filt Rate > 60; Glucose Random 83 mg/dL (60-115); Potassium 4.2 mmol/L (3.3-5.1); Sodium 143 mmol/L (135-145); Total Protein 7.4 g/dL (6.5-8.0)
== END 2025-01-11 14:10 | disposition home or self-care (01) ==
LOC: HO.CHCLDS 14:09
PROVIDERS: Visit Provider Pediatrics
DX: Z01.818 Encounter for other preprocedural examination (principal)
CPT/HCPCS: 36415; 80048; 80076; 81001; 85025; 85610

== ENCOUNTER 2025-02-13 13:55 | Outpatient (AMB) | payer OTHER, SELFPAY ==
--- NOTE | 2025-02-13 14:04 | A.OFFVIS_ITS ---
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 Patient was seen with SHARON Stewart for left hip pain and was referred to physiatry. 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 Currently he has constant pain in his lower back and left hip. He tried and failed PT and lumbar injections. Hx of left knee surgery due to torn ligament and meniscus from the same injury. States that he has a labrum tear giving him problems due to his back. Finds little to no relief with use of lidocaine patches, most relief with fentalyn patch Allergies No Known Allergies Allergy (Verified 02/13/25 14:05) Medication List - Last Reconciled 02/13/25 by Nikky Okeefe MD diclofenac sodium 1% topical TID fentanyl 12 mcg/hr 1 patch transdermal Q72H gabapentin 300 mg PO TID lidocaine 5% 1 patch topical DAILY lisinopril 20 mg PO DAILY mirtazapine 7.5 mg PO BEDTIME omeprazole 20 mg PO BID sumatriptan succinate mg PO DAILY tadalafil (Cialis) 5 mg PO DAILY 90 days tadalafil (Cialis) 10 mg PO DAILY PRN 30 days tamsulosin mg PO DAILY HPI Comments Details: WC injury on 09/22/22. Patient seen by [facility] for left hip pain. Per their last note, findings of labral tear was addressed and discussed with patient. However, question component of pain coming from lumbar spine, therefore referred to physiatry for further evaluation. He's had lumbar epidural injections, 2 years ago, at [facility]. It did not help more than a week. He does not remember much. Also had left hip injections? SI joint does not sound familiar. Last PT 2023 but did not have relief. Pain medications including Fentanyl (given due to recent abdominal hernia surgery at [facility]). Lower back pain, different from the left hip/buttock pain. Axial but towards left. Sometimes goes down to left leg. Sometimes numbness on both legs, when he is sitting down but not with walking. He uses cane and limps. Needle sensation on bottom of both feet. PCP says high risk for DM. [facility] Medical History Subclinical hyperthyroidism Palpitation Shortness of breath Chest pain Hernia No known health problems Surgical History Hx of hernia repair H/O knee surgery Family History Maternal Grandmother Heart problem Paternal Grandmother Heart problem Social History Alcohol intake: never Patient Tobacco Use Status: Never used Tobacco Current occupational status: unemployed Physical Exam Vital Signs: BMI result Body Mass Index 25.0 Constitutional: Patient appears to be in no acute distress, well nourished and well developed. Patient was appropriately conversant and oriented. Good historian. MSK: No specific abnormalities found on inspection of the spine and all extremities. Tender on paraspinals, level L3 and L4. Denied tenderness over SI joint or piriformis or GT. Lumbar ROM was full. Bilateral hip, knee and ankle ROM WNL. No ligamentous laxity or crepitance. No increased effusion. Straight-leg raising test negative. FABERE test positive left groin pain and lower back/hip. Strength is 5/5 in all muscle groups tested. No increased tone noted. Neurological: Neurologic examination of the upper and lower extremities was nonfocal with intact sensation, muscle stretch reflexes and without focal motor deficits . Carroll?s negative bilaterally. Babinski was down going bilaterally. Clonus was negative. He carries a cane but he was able to get up on bed without problem. Gait appeared nonantalgic except for the cane. Results Reviewed Results Reviewed: Reviewed notes from ortho. Ordering Physician: Amairani Ellison PA-C Date of Service: 01/09/25 Procedure(s): XR hip LT min 2V Accession Number(s): [id number] cc: Amairani Ellison PA-C~ EXAMINATION: XR HIP 2 OR MORE VIEWS LEFT HISTORY: M25.559 - Pain in unspecified hip COMPARISON: Comparison is made with the prior examination dated 10/14/2022. FINDINGS: A single AP view of the pelvis and an additional view of the left hip are submitted. Osseous mineralization is normal. There is no fracture or dislocation. There is mild superior joint space narrowing. The soft tissues are unremarkable. XR/XR hip LT min 2V IMPRESSION: Mild superior joint space narrowing. Assessment & Plan Assessment & Plan (1) Chronic lower back pain: Code(s): M54.50 - Low back pain, unspecified; G89.29 - Other chronic pain Category: Medical Qualifiers: Back pain laterality: left Sciatica presence: with sciatica Sciatica laterality: sciatica of left side Qualified Code(s): M54.42 - Lumbago with sciatica, left side; G89.29 - Other chronic pain Plan Chronic left-sided lower back pain. History of past lumbar epidural injections. No neurologic deficits on exam today. I would like to obtain past records from [facility] about what kind of injections were done, and past MRI. Would like to see results 1st before deciding whether we need to repeat further imaging. Exam does not show red flags. Not sure if patient would like to return to injection therapy. Telehealth visit after I review records. Assessment and plan discussed with patient, and patient was agreeable. All questions were answered thoroughly. Total of 45 minutes spent today including chart review, results review, history taking, physical examination, discussion of assessment and plan, and coordination of care. Nikky Okeefe MD, TEETEE Board Certified, [place] Board of Physical Medicine and Rehabilitation (ABPMR) Board Certified, [place] Board of Electrodiagnostic Medicine (ABEM) Coding Level of Care Code New Pt Level 4 (16048) Diagnoses Chronic left-sided low back pain with left-sided sciatica M54.42; G89.29 Back pain laterality: left Sciatica presence: with sciatica Sciatica laterality: sciatica of left side
[2025-02-13 14:13] VITALS: BMI 25.0
--- OUTSIDE RECORDS SUMMARY | 2025-02-13 17:08 | XMS_ITS | Encounter Summary ---
Author Organization [employer] Address 75 [facility] 7t [place] [address] Care Team Providers Care Refrigeration Tech Name Role Phone Nai Menendez MD Primary Care Provider [phone] Encounter Details Date Type Department Care Team (Late st Contact Info) Description 01/02/2025 Orders Only [facility] [address] [place] [address] ProviderDarrian MD Social History Tobacco Use Types [...] Care Team (Late st Contact Info) Description 05/24/2025 9:45 AM EDT Office Visit [facility] MED & PEDS [address] [place] [address] Nai Menendez MD 505 [place] [address] documented as of this encounter Procedures Procedure [...] documented as of this encounter Care Teams Refrigeration Tech Relationship Specialty Start Date End Date Nai Menendez MD 505 [place] [address] PCP - General Internal Medicine 09/25/24 Phuong Fink Battery Tester And RepairerRespiratory Equipment Assistant 12/05/24 documented as of this encounter
--- OUTSIDE RECORDS SUMMARY | 2025-02-13 17:08 | XMS_ITS | Clinical Summary ---
Author Organization [facility] Address [address] [place] [address] Care Team Providers Care Machinist Helper Name Role Phone Unavailable Primary Care Provider Unavailabl e Source Comments PLEASE NOTE, if this patient is a minor, it may be UNLAWFUL to discuss sensitive information that is contained in these records (such as FAMILY PLANNING, MENTAL HEALTH or SUBSTANCE ABUSE) with the minor patient's parent or other person without the patient's specific authorization.[facility] Immunizations Immunization Administration Dates Next Due PFIZER COVID VACCINE, [...] Health Maintenance Due Date Last Done Comments Anxiety Screening 1972 Diabetes Screening 1972 Hepatitis C Screening 1972 Lipid Screening 1972 Tobacco Screening 1972 HIV Screening 01/23/1987 Hypertension Screening (#1) 01/23/1990 Imm-DTaP/Tdap/Td (1 - Tdap) 01/23/1991 Imm-Hepatitis B (1 of 3 - 19 + 3-dose series) 01/23/1991 CT Colonography 01/23/2017 Colonoscopy 01/23/2017 Colorectal Cancer Screening 01/23/2017 FIT/gFOBT 01/23/2017 Fecal DNA 01/23/2017 Flexible Sigmoidoscopy 01/23/2017 Imm-Zoster, Recombinant (1 of 2) 01/23/2022 [id number] ( - season) 2024 021, 03/06/2021 Imm-Influenza (#1) 2024 Alcohol and Drug Screen 11/01/2024 Depression Annual Screen 11/01/2024 Insurance COVID19 [facility] UNINSURED TESTING AND TREATMENT FUND
--- OUTSIDE RECORDS SUMMARY | 2025-02-13 17:08 | XMS_ITS | Encounter Summary ---
Author Organization [employer] Address 75 [facility] 7t [place] [address] Care Team Providers Care Fabrication Specialist Name Role Phone Analy Chen MD Primary Care Provider [phone] Nai Menendez MD Primary Care Provider [phone] Reason for Visit * Reason Onset Date Comments Nurse Triage 09/12/2024 Encounter Details Date Type Department Care Team (Late st Contact Info) Description 09/12/[address] [facility] MEDICINE [address] [place] [address] Analy Chen MD [address] [place] [address] Nurse Triage Social History Tobacco Use Types [...] Description 05/24/2025 9:45 AM EDT Office Visit [facility] MED & PEDS [address] [place] [address] Nai Menendez MD [address] [place] [address] documented as of this encounter Visit Diagnoses Not on filedocumented in this encounter Additional Health Concerns Assessment Noted Time PHQ-9 Depression Total Score: 4 02/02/20 9:37 AM EDT documented as of this encounter Care Teams Fabrication Specialist Relationship Specialty Start Date End Date Analy Chen MD [address] [place] [address] PCP - General Internal Medicine 02/02/24 09/24/24 Nai Menendez MD [address] [place] [address] PCP - General Internal Medicine 09/25/24 Phuong Fink Railroad Shop InspectorStorage Architect 12/05/24 documented as of this encounter
--- OUTSIDE RECORDS SUMMARY | 2025-02-13 17:08 | XMS_ITS | Encounter Summary ---
Author Organization [employer] Address 75 [facility] 7t [place] [address] Care Team Providers Care Cooker Casing Name Role Phone Analy Chen MD Primary Care Provider [phone] Nai Menendez MD Primary Care Provider [phone] Reason for Visit * Reason Onset Date Comments Call Back Request 06/09/2024 Encounter Details Date Type Department Care Team (Late st Contact Info) Description 06/09/2024 Telephone [facility] MEDICINE [address] [place] [address] Analy Chen MD [address] [place] [address] Call Back Request Social History Tobacco Use [...] Description 05/24/2025 9:45 AM EDT Office Visit [facility] & PEDS [address] [place] [address] Nai Menendez MD [address] [place] [address] documented as of this encounter Visit Diagnoses Not on filedocumented in this encounter Additional Health Concerns Assessment Noted Time PHQ-9 Depression Total Score: 4 02/02/20 9:37 AM EDT documented as of this encounter Care Teams Cooker Casing Relationship Specialty Start Date End Date Analy Chen MD [address] [place] [address] PCP - General Internal Medicine 02/02/24 09/24/24 Nai Menendez MD [address] [place] [address] PCP - General Internal Medicine 09/25/24 Phuong Fink Field Sales EngineerBox Office Agent 12/05/24 documented as of this encounter
--- OUTSIDE RECORDS SUMMARY | 2025-02-13 17:08 | XMS_ITS | Encounter Summary ---
Author Organization [employer] Address 75 [facility] 7 [place] [address] Care Team Providers Care Supervisor Beater Room Name Role Phone Nai Menendez MD Primary Care Provider [phone] Reason for Visit * Reason Onset Date Comments Medication Question 12/01/2024 Encounter Details Date Type Department Care Team ([facility] st Contact Info) Description 12/01/2024 Telephone [facility] MEDICINE [address] [place] [address] Nai Menendez MD [address] [place], [place] [phone] Medication Question Social History Tobacco Use Types [...] has questions regarding medication prescribed on 11/30/24. Paperhanger And Painter explained cetirizine 10mg for allergies/post nasal drip, [...] Description 05/24/2025 9:45 AM EDT Office Visit [facility] MED & PEDS [address] [place] [address] Nai Menendez MD [address] [place] [address] documented as of this encounter Visit Diagnoses Not on filedocumented in this encounter Additional Health Concerns Assessment Noted Time PHQ-9 Depression Total Score: 4 02/02/20 24 9:37 AM EDT documented as of this encounter Care Teams Supervisor Beater Room Relationship Specialty Start Date End Date Nai Menendez MD [address] [place] [address] PCP - General Internal Medicine 09/25/24 Phuong Fink Roll Up Guider OperatorWelding Machine Assembler 12/05/24 documented as of this encounter
--- OUTSIDE RECORDS SUMMARY | 2025-02-13 17:08 | XMS_ITS | Encounter Summary ---
Author Organization [employer] Address 75 [facility] 7t [place] [address] Care Team Providers Care Post Secondary Professional Name Role Phone Analy Chen MD Primary Care Provider [phone] Nai Menendez MD Primary Care Provider [phone] Encounter Details Date Type Department Care Team ([facility] st Contact Info) Description 06/14/2024 Orders Only [facility] MED & PEDS [address] [place], [place] [phone] Nai Menendez MD [address] [place] [address] Tremor (Primary Dx); Low TSH level Social [...] Description 05/24/2025 9:45 AM EDT Office Visit [facility] MED & PEDS [address] [place] [address] Nai Menendez MD [address] [place] [address] documented as of this encounter Visit Diagnoses Diagnosis Tremor- Primary Abnormal involuntary movements Low TSH level documented in this encounter Additional Health Concerns Assessment Noted Time PHQ-9 Depression Total Score: 4 02/02/20 9:37 AM EDT documented as of this encounter Care Teams Post Secondary Professional Relationship Specialty Start Date End Date Analy Chen MD [address] [place] [address] PCP - General Internal Medicine 02/02/24 09/24/24 Nai Menendez MD [address] [place] [address] PCP - General Internal Medicine 09/25/24 Phuong Fink Staff Field EngineerSkip Pit Worker 12/05/24 documented as of this encounter
--- OUTSIDE RECORDS SUMMARY | 2025-02-13 17:08 | XMS_ITS | Encounter Summary ---
Author Organization [employer] Address 75 [facility] 7t [place] [address] Care Team Providers Care Lockstitch Machine Operator Name Role Phone Analy Chen MD Primary Care Provider [phone] Nai Menendez MD Primary Care Provider [phone] Reason for Visit * Reason Onset Date Comments ER Follow-up 02/11/2024 Encounter Details Date Type Department Care Team (Late st Contact Info) Description 02/11/2024 Telephone [facility] MEDICINE [address] [place] [address] Analy Chen MD [address] [place], [place] [phone] ER Follow-up Social History Tobacco Use Types [...] ED visit on : Date: 02/08 [place] [facility] Seen for: Skin Lump had surgery on 01/26 for hernia and still had pain with a lump Patient advised will forward to team nurse for follow up documented in this encounter Plan of Treatment Upcoming Encounters Date Type Department Care Team (Late st Contact Info) Description 05/24/2025 9:45 AM EDT Office Visit [facility] MED & PEDS [address] [place] [address] Nai Mennedez MD [address] [place] [address] documented as of this encounter Visit Diagnoses Not on filedocumented in this encounter Additional Health Concerns Assessment Noted Time PHQ-9 Depression Total Score: 4 02/02/20 9:37 AM EDT documented as of this encounter Care Teams Lockstitch Machine Operator Relationship Specialty Start Date End Date Analy Chen MD [address] [place] [address] PCP - General Internal Medicine 02/02/24 09/24/24 Nai Menendez MD [address] [place] [address] PCP - General Internal Medicine 09/25/24 Phuong Fink Investment Banking AssociateHedge Fund Accountant 12/05/24 documented as of this encounter
--- OUTSIDE RECORDS SUMMARY | 2025-02-13 17:08 | XMS_ITS | Encounter Summary ---
Author Organization [employer] Address 75 [facility] [address] [address] Care Team Providers Care Salesperson Burial Plots Name Role Phone Analy Chen MD Primary Care Provider [phone] Nai Menendez MD Primary Care Provider [phone] Reason for Referral * Consultation (Routine) - Closed Specialty Diagnoses / Procedures Referred By Contac t Referred To Contact Cardiology Diagnoses Primary hypertension Other chest pain Nai Menendez MD [address] [place] [address] Phone: tel: fax: Stephan Batista MD [address] [place] [address] Phone: tel: fax: Referral ID Status Reason Start Date Expiration Date V isits Requested Visits Authorized [id number] Closed Specialty Services Required 04/17/2024 04/17/2025 1 1 Encounter Details Date Type Department Care Team (Late st Contact Info) Description 04/17/2024 Orders Only [facility]S [address] [place] [phone] Nai Menendez MD [address] [place] [address] Primary hypertension (Primary Dx); Other chest pain [...] Description 05/24/2025 9:45 AM EDT Office Visit [facility] MED & PEDS [address] [place] [address] Nai Menendez MD [address] [place] [address] Scheduled Referrals Name Type Priority Associated Diagnoses [...] documented as of this encounter Care Teams Salesperson Burial Plots Relationship Specialty Start Date End Date Analy Chen MD [address] [place] [address] PCP - General Internal Medicine 02/02/24 09/24/24 Nai Menendez MD [address] [place] [address] PCP - General Internal Medicine 09/25/24 Phuong Fink Visual DesignerClinical Pathologist 12/05/24 documented as of this encounter
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
--- OUTSIDE RECORDS SUMMARY | 2025-02-13 17:08 | XMS_ITS | Clinical Summary ---
Author Organization [employer] Address [address] [facility] [address] [place] [address] Care Team Providers Care Telephone Engineer Name Role Phone Nai Menendez MD Primary Care Provider [phone] Allergies No known active allergies Medications * [...] um Nitrate 1.1-5 % pasteIndications :Dental caries [place] teeth for 2 minutes, morning and night. [...] 24 hours. 9 tablet 3 4 Active chlorhexidine (Peridex) 0.12 % solution [...] TIMES DAILY 100 g 3 4 Active chlorhexidine (Peridex) 0.12 % solutionIndicati ons:History of tooth extraction, unspecified edentulism class Swish 15 mL morning and night for 1 minute. Spit, do not swallow. Do not eat or drink for 30 minutes following use. 473 mL 4 Active lidocaine (Lidoderm) 5 % patch APPLY 1 PATCH TOPICALLY EVERY MORNING AND REMOVE AND DISCARD AFTER 12 HOURS 30 patch 3 4 Active cetirizine (ZyrTEC) 10 MG tabletIndication s:Nasal congestion Take 1 tablet (10 mg) by mouth Once per day. 30 tablet 11 5 026 Active Omeprazole 20 MG tablet delayed-releaseI ndications:Gastr oesophageal reflux disease without esophagitis Take 1 tablet (20 mg) by mouth Once per day. 30 tablet 3 5 Active acetaminophen (Tylenol 8 Hour) 650 MG ER tabletIndication s:Severe right groin pain,Primary hypertension Take 1 tablet (650 mg) by mouth every 8 (eight) hours if needed for mild pain. Do not crush, chew, or split. 90 tablet 3 5 025 Active cyclobenzaprine (Flexeril) 10 MG tablet Take 1 tablet (10 mg) by mouth 3 times daily for 10 days. 30 tablet 5 Active gabapentin (Neurontin) 300 MG capsuleIndicatio ns:Left hip pain Take 1 capsule (300 mg) by mouth 3 times daily. 90 capsule 3 5 Active amLODIPine (Norvasc) 5 MG tabletIndication s:Primary hypertension Take 1 tablet (5 mg) by mouth Once per day. 30 tablet 11 5 026 Active mirtazapine (Remeron) 7.5 MG tabletIndication s:Anxiety,Adjust ment insomnia TAKE 1 TABLET(7.5 MG) BY MOUTH AT BEDTIME 30 tablet 1 5 Active tamsulosin (Flomax) 0.4 MG 24 hr capsuleIndicatio ns:Dysuria TAKE 2 CAPSULES(0.8 MG) BY MOUTH DAILY 30 capsule 11 5 Active omeprazole OTC (PriLOSEC OTC) 20 MG EC tablet Take 20 mg by mouth. 4 Active Active Problems Problem Noted Date Diagnosed Date Polydipsia 02/12/2025 Adjustment disorder with mixed anxiety and depre [...] organization. Date Type Department Care Team Description 02/12/2025 9:00 AM EDT Office Visit [facility] [address] [place] [address] Nai Menendez MD Polydipsia (Primary Dx); Unilateral inguinal hernia without obstruction or gangrene, recurrence not specified; Primary hypertension 02/12/2025 Travel 02/06/2025 Patient Outreach [facility] [address] [place] [phone] Nai Menendez MD Care Coordination (CHW outreach for SDOH food needs-referral completed /) 02/06/2025 Travel 02/05/2025 Patient Outreach [facility] [address] [place] [address] Nai Menendez MD Pre-visit Planning (SDOH screening positive and Tobacco screening negative) 02/05/2025 Patient Outreach [facility] [address] [place] [phone] Nai Menendez MD Pre-visit Planning (Pre visit planning LVM ) 02/01/2025 Telephone [facility] [address] [place] [phone] Nai Menendez MD Nurse Triage 01/12/2025 Population Health Risk Score [facility] (C3) Department [address] [place] [address] [phone] Provider, Population Health Generic 01/12/2025 Telephone [facility] [address] [place] [address] Analy Chen MD FAX: Pre-op 01/11/2025 1:30 PM EDT Office Visit [facility] [address], [place] [phone] Analy Chen MD Preop examination (Primary Dx); Primary hypertension; Adjustment disorder with mixed anxiety and depressed mood 01/11/2025 Travel 01/02/2025 [facility] [address] [place] [phone] ProviderDarrian MD 01/02/2025 Refill [facility] [address], [place] [phone] Nai Menendez MD Dysuria 12/27/2024 Travel 12/27/2024 Refill [facility] [address], [place] [phone] Analy Chen MD Anxiety; Adjustment insomnia 12/21/2024 Telephone [facility] [address], [place] [phone] Nai Menendez MD pre op 12/21/2024 Telephone [facility] [address] [place] [address] Nai Menendez MD 12/20/2024 Telephone [facility] [address], [place] [phone] Nai Menendez MD Results 12/18/2024 Travel 12/12/2024 10:45 AM EST Office Visit [facility] [address] [place] [address] Nai Menendez MD Left hip pain (Primary Dx); Primary hypertension; Bulge in groin area; Severe right groin pain; Dysuria 12/11/2024 Travel 12/11/2024 Telephone [facility] [address] [place] [phone] Nai Menendez MD Nurse Triage 12/05/2024 Telephone [facility] [address] [place] [address] Nai Menendez MD Care Coordination ([facility] Entry Clerk) 12/01/[address] [address] Nai Menendez MD Medication Question 11/30/2024 1:45 PM EST Office Visit [facility] [address] [place] [address] Nai Menendez MD Severe right groin pain (Primary Dx); Primary hypertension; Nasal congestion; Gastroesophageal reflux disease without esophagitis; Anxiety; Adjustment insomnia; Left hip pain; Right upper quadrant pain 11/30/2024 Travel 11/29/2024 Telephone [facility] [address] [place] [address] Nai Menendez MD CHART PREP 11/24/2024 Travel 11/23/2024 Telephone [facility] [address] [place] [address] Nai Menendez MD recall appt (Pt needs appt) from Last 3 Months Immunizations Name Administration [...] housing situation today? I have [place] solitario 02/05/[address] you li [...] Mass Index 25.5 02/12/2025 8:55 AM EDT Plan of Treatment Upcoming Encounters Date Type Department Care Team ([facility] st Contact Info) Description 05/24/2025 9:45 AM EDT Office Visit [facility] [address] [place] [address] Nai Menendez MD [address] [place] [address] Health Maintenance Due Date Last Done Comments CT Colonography 1970 Colonoscopy 1972 FIT 1970 FOBT 1970 Sigmoidoscopy 1970 Hepatitis A Vaccines (1 of 2 - Risk 2-dose series) 01/23/1991 Hepatitis B Vaccines (1 of 3 - 19+ 3-dose series) 01/23/1991 Pneumococcal Vaccine: 50+ Years (1 of 1 - PCV) 01/23/2022 Influenza Vaccine (#1) 2024 Dental Prophylaxis 10/21/2024 04/20/2024 Dental Oral Exam 02/14/2025 08/15/2024, 03/15/2024 Dental X-Ray: Bitewings 03/16/2025 03/15/20 24, 02/09/2024 Depression Monitoring 06/24/2025 12/25/2024 , 12/25/2024 COVID-19 Vaccine (3 - 2023-2 5 season) 2025 04/03/2021, 03/06/2021 Postponed from 07/02/2024 (Patient Refused) Zoster Vaccines (1 of 2) 09/25/2025 Pos tponed from 01/23/2022 (Patient Refused) Depression Screening 12/25/2025 12/25/2024, 12/25/2024 SDOH Screening 02/05/2026 02/05/2025 Alcohol/Substance Use Screening 02/12/2026 02/12/2025 Diabetes: Hemoglobin A1C 02/12/202602/12/ 025, 09/25/2024 Tobacco Screening 02/12/2026 02/12/2025 Colorectal Cancer Screening 02/20/2027 FIT DNA/Cologuard 02/20/2027 [...] GLUCOSE Routine 02/12/2025 9:43 AM EDT Polydipsia URINALYSIS, COMPLETE Routine 01/11/2025 2:30 PM EDT Preop examination HEPATIC FUNCTION PANEL Routine 01/11/2025 2:10 PM EDT Preop examination PROTHROMBIN TIME-INR Routine 01/11/2025 2:10 PM EDT Preop examination BASIC METABOLIC PANEL Routine 01/11/2025 2:10 PM EDT Preop examination CBC WITH AUTO DIFFERENTIAL Routine 01/11/2025 2:10 PM EDT Preop examination ECG 12-LEAD Routine 01/11/2025 1:48 PM EDT Preop examination ECG 12-LEAD Routine 01/01/2025 3:54 PM EST AMB REFERRAL TO GENERAL SURGERY Routine 12/20/2024 Bulge in groin area US ABDOMEN COMPLETE Routine 12/16/2024 8 :38 AM EST Right upper quadrant pain PERIODIC ORAL EVALUATION - ESTABLISHED PATIENT Routine 08/15/2024 9:30 AM EDT Periodontal disease Defective dental tenriism Symptomatic irreversible pulpitis PROPHYLAXIS - ADULT Routine [...] Health Maintenance Results * POCT HGB A1C (02/12/2025 9:43 AM EDT) Hemoglobin A1C 5.7 4.0 - 6.0 % QC Media Lot # [id number] Lot# Expiration Date ,827 Blood 02/12/2025 9:43 AM EDT us Nai Menendez MD POINT OF CARE TEST ENTER/ED IT ORDERABLES Final Result * POCT Glucose (02/12/2025 9:43 AM EDT) Glucose Blood, POC 115 60 - 200 mg/dL [employer] Media Lot # [id number] Lot# Expiration Date 998, Comment:random Blood Capillary blood specimen / Unknown 02/12/2025 9:43 AM EDT Nai Menendez MD POINT OF CARE TEST ENTER/ED IT ORDERABLES Final Result * Urinalysis Complete (01/11/2025 2:30 PM EDT) Color Urine Yellow [facility] Appearance Urine Clear [facility] PH 7.5 5.0 - 9.0 [facility] Glucose Urine UA Negative Negative mg/dL [facility] Urine Blood Negative Negative [facility] Specific [place] - Urine 1.020 1.005 - 1.025 [facility] Urine Protein Negative Neg-Trace mg/dL [facility] Urine Ketones Negative Negative mg/dL [facility] Nitrite Urine Negative Negative [facility] Leukocyte Esterase Urine Negative Negative [facility] RBC Urine 0-2 0 - 2 /HPF [facility] Urine WBC 0-5 0 - 5 /HPF [facility] Urine Squamous Epithelial Cell 0-2 0 - 2 /HPF [facility] Urine Bacteria None Seen None Seen [facility] Hyaline Casts, Urine 0-2 0 - 2 /LPF [facility] Urine (Urine, Random) 01/11/2025 2:30 PM EDT 01/11/2025 5:25 PM EDT Analy Chen MD LAB URINE ORDERABLES Final Re sult [facility] [address] [place] [phone] * CBC auto differential (01/11/2025 2:10 PM EDT) White Blood Count 6.0 4.8 - 10.8 X10*3/uL [facility] Red Blood Count 4.69 4.60 - 5.80 X10*6/uL [facility] Hemoglobin 14.2 14.0 - 18.0 g/dl [facility] Hematocrit 42.7 42.0 - 52.0 % [facility] Mean Corpuscular Volume 91.0 80.0 - 98.0 fL [facility] Mean Corpuscular Hemoglobin 30.3 27.0 - 33.0 pg [facility] Mean Corpuscular HGB Conc 33.3 31.0 - 36.0 g/dl [facility] Red Cell Distribution Width 12.8 11.0 - 16.0 % [facility] Platelet Count 239 160 - 400 X10*3/uL [facility] Mean Platelet Volume 10.4 9.4 - 12.4 fL [facility] Neutrophils Percent Auto 58.1 45 - 73 % [facility] Imm Gran Pct Auto 0.3 0.0 - 0.4 % [facility] Lymphocytes Percent Auto 28.3 20 - 40 % [facility] Monocytes Percent Auto 10.8 2 - 11 % [facility] Eosinophils Percent Auto 1.7 0 - 4 % [facility] Basophils Percent Auto 0.8 0 - 2 % [facility] NRBC Pct Auto 0.0 0.0 - 0.2 /100WBC [facility] Neutrophils Absolute Auto 3.5 2.0 - 8.3 x10*3/uL [facility] Imm Gran Abs Auto 0.02 0.00 - 0.03 X10*3/uL [facility] Lymphocytes Absolute Auto 1.7 1.2 - 4.9 X10*3/uL [facility] Monocytes Absolute Auto 0.7 0.1 - 1.2 X10*3/uL [facility] Eosinophils Absolute Auto 0.1 0.0 - 0.4 X10*3/uL [facility] Basophils Absolute Auto 0.1 0.0 - 0.2 X10*3/uL [facility] NRBC Abs Auto 0.000 0.0 - 0.012 X10*3/uL [facility] Blood Venous blood specimen / Unknown 01/11/2025 2:10 PM EDT 01/11/2025 5:37 PM EDT Analy Chen MD LAB BLOOD ORDERABLES Final Re sult Performing Organization Address [facility] Co de Phone Number [facility] [address] [place] [phone] * Prothrombin Time-INR (01/11/2025 2:10 PM EDT) Prothrombin Time 12.4 10.9 - 12.4 SEC [facility] INTERNATIONAL NORM RATIO 1.1 0.9 - 1.1 [facility] Comment:INTERNATIONAL NORMAL IZED RATIO (INR) [...] 2:10 PM EDT 01/11/2025 5:37 PM EDT Analy Chen MD LAB BLOOD ORDERABLES Final Re sult Performing Organization Address [facility] Co de Phone Number [facility] [address] [place] [phone] * (ABNORMAL) Hepatic Function Panel (01/11/2025 2:10 PM EDT) Bilirubin, Total 1.1(H) 0.0 - 1.0 mg/dL [facility] Bilirubin, Direct 0.3 0.0 - 0.5 mg/dL [facility] Aspartate Amino Transferase 23 5 - 37 U/L [facility] Alanine Aminotransferase 45(H) 0 - 40 U/L [facility] Total Protein 7.4 6.5 - 8.0 g/dL [facility] Albumin Level 4.0 3.5 - 5.0 g/dL [facility] Alkaline Phosphatase 48 39 - 117 U/L [facility] Blood Venous blood specimen / Unknown 01/11/2025 2:10 PM EDT 01/11/2025 5:37 PM EDT us Analy Chen MD LAB BLOOD ORDERABLES Final Re sult [facility] [address] [place] [phone] * (ABNORMAL) Basic Metabolic Panel (01/11/2025 2:10 PM EDT) Sodium 143 135 - 145 mmol/L [facility] Potassium 4.2 3.3 - 5.1 mmol/L [facility] Chloride 107 96 - 108 mmol/L [facility] Carbon Dioxide 28 22 - 29 mmol/L [facility] Anion Gap 12 12 - 20 [facility] Urea Nitrogen (BUN) 19(H) 9 - 16 mg/dL [facility] Creatinine, Serum 0.89 0.5 - 1.4 mg/dL [facility] Estimated Glomerular Filt Rate >60 [facility] Comment:Chronic Kidney Disea se: Estimated GFR < 60 mL/min/1.70x9Jmvofr Kidney Disease: Estimated GFR < 15 mL/min/1.73m2 Glucose 83 60 - 115 mg/dL [facility] Calcium 9.4 8.4 - 10.2 mg/dL [facility] Blood Venous blood specimen / Unknown 01/11/2025 2:10 PM EDT 01/11/2025 5:37 PM EDT us Analy Chen MD LAB BLOOD ORDERABLES Final Re sult [facility] [address] [place], [place] [phone] * ECG 12 lead (01/11/2025 1:48 [...] [facility] ?[address] ? [place] [address] ? Ultrasound Report ? Signed ? Patient: Osei Fink ?MR#: [id number] ?? 9 ? : 1970 ?Acct:[id number] ? Age/Sex: 54 / M ?ADM Date: 12/15/24 ? Loc: HO.HMGCX ? Attending Dr: Nai Menendez MD ? Ordering Physician: Nai Menendez MD ?? Date of Service: 12/15/24 ?? Procedure(s): US abdomen complete ?? Accession Number(s): [id number] ? cc: Nai Menendez MD ? CLINICAL [...] ?12/16/24 0839 ? DD/ 0838 ? TD/TT: 12/16/2438 ? Supervisor Grading: ? Procedure Note [place], Image - 12/16/2024 [facility] [place] [address] Ultrasound Report Signed Patient: Osei Fink#: [id number] 9 : 1970Acct:[id number] Age/Sex: 54 / MADM Date: 12/15/24 Loc: HO.HMGCX Attending Dr: Nai Menendez MD Ordering Physician: Nai Menendez MD Date of Service: 12/15/24 Procedure(s): US abdomen complete Accession Number(s): [id number] cc: Nai Menendez MD CLINICAL HISTORY: Right [...] in OV> 12/16/2439 DD/ 7 TD/TT: 12/16/24837 Supervisor Grading: Nai Menendez MD [facility] US PROCEDURES Edited Re sult - Final * Cologuard?? colon cancer screening (02/21/2024 7:45 AM EDT) Cologuard Result Negative Negative 03/01/20 3:29 AM EDT [facility] (CLIA #:[id number]) Comment: NEGATIVE TEST RESULT. A negative Cologuard [...] cancer. ??Following a negative Cologuard result, the [employer] and U.S. Multi-Society Task Force screening guidelines recommend a Cologuard re-screening interval of 3 years. References: [employer] Guideline for Colorectal Cancer Screening: https://www.cancer.org/cancer/vkrgn-jhxpol-ziglqk/ilmneydak-kgcrleppw-auhrcwh/ac s-rec ommendations.html.; Peña WILL, Ra WILEY, Alisa SUMMERS, Colorectal Cancer Screening: Recommendations for Physicians and Patients from the U.S. Multi-Society Task Force on Colorectal Cancer Screening , Am J Gastroenterology 2017; 112:5789-1774. TEST DESCRIPTION: Composite algorithmic analysis of stool [...] Tomas et al, N Engl J Med 2014;370(14):5738-4839.) Cologuard may produce a false negative or false positive result (no colorectal cancer or precancerous polyp present at colonoscopy follow up). A negative Cologuard test result does not guarantee the absence of CRC or advanced adenoma (pre-cancer). The current Cologuard screening interval is every 3 years. ([employer] and U.S. Multi-Society Task Force). Cologuard performance data in a 10,000 patient pivotal study using colonoscopy as the reference method can be accessed at the following location: www.[employer]Me.[employer]FundCom/results. Additional description of the Cologuard test process, warnings and precautions can be found at www.[employer].com. Stool specimen (specimen) 02/21/2024 7:45 AM EDT 02/23/2024 10:44 AM EDT us Analy Chen MD LAB MOLECULAR DIAGNOSTICS ORD ERABLES Final Result [facility] (CLIA #:[id number]) [place] [address] [place] [address], * Hepatitis A,B,C Profile (02/02/2024 10:43 AM EDT) Hepatitis A IgM Nonreactive Nonreactive [facility] Comment:IgM antibodies to QUINTANILLA V not detected; does not exclude earlyacute or recovered HAV infection. ~Hepatitis B Surface Antibody NONREACTIVE Nonreactive [facility] Comment:Nonreactive: < 8.00 mIU/mL Hepatitis B Core Antibody Nonreactive Nonreactive [facility] Hepatitis C Antibody Nonreactive Nonreactive [facility] Comment:Antibodies to HCV no t detected; does not exclude early acuteHCV infection. Hepatitis B Surface Ag Negative Negative [facility] Blood Venous blood specimen / Unknown 02/02/2024 10:43 AM EDT 02/02/2024 2:10 PM EDT Analy Chen MD LAB BLOOD ORDERABLES Final Re sult Performing Organization Address [facility]/ZIP Co de Phone Number [facility] [address] [place] [phone] * HIV-1/2 Antigen and Antibodies, Fourth Generation, with Reflexes (02/02/2024 10:43 AM EDT) HIV AB/AG Nonreactive Nonreactive [facility] Comment:HIV-1 p24 Ag and/or HIV-1/HIV-2 Ab not detected.A test result that is nonreactive does not exclude thepossibility of exposure to or infection with HIV-1 and/orHIV-2. Nonreactive results in this assay for individualswith prior exposure to HIV-1 and/or HIV-2 may be due toantigen and antibody levels that are below the limit ofdetection of this assay.The [employer] HIV Ag/Ab Combo assay result andsupplemental assay results should be interpreted inconjunction with the patient's clinical presentation,history and other laboratory results. If the results areinconsistent with clinical evidence, additional testing issuggested to confirm the result. Blood Venous blood specimen / Unknown 02/02/2024 10:43 AM EDT 02/02/2024 2:10 PM EDT Analy Chen MD LAB BLOOD ORDERABLES Final Re sult Performing Organization Address [facility] Co de Phone Number [facility] [address] [place] [phone] * (ABNORMAL) Lipid Panel, Standard (02/02/2024 10:43 AM EDT) Triglycerides 143 <150 mg/dL [facility] Comment:Desirable Triglyceri de: less than 150 mg/dLBorderline High Triglyceride 150-199 mg/dLHigh Triglyceride: 200-499 mg/dLVery High Triglyceride: greater than or equal to 5OO mg/dL Cholesterol 174 <200 mg/dL [facility] Comment:Desirable Cholestero l: less than 200 mg/dLBorderline High Cholesterol: 200-239 mg/dLHigh Cholesterol: greater than 239 mg/dL LDL Cholesterol Calculated 105(H) <100 mg/dL [facility] Comment:Desirable LDL: less than 100 mg/dLNear Optimal/Above Optimal LDL: 110- 129 mg/dLBorderline High LDL: 130-159 mg/dLHigh LDL: 160-189 mg/dLVery High LDL: greater than or equal to 190 mg/dL HDL Cholesterol 41 >40 mg/dL [facility] Comment:Desirable HDL: great er than 40 mg/dL Note: This HDL assay may give artificially low results in patients with liver disease. Blood Venous blood specimen / Unknown 02/02/2024 10:43 AM EDT 02/02/2024 2:10 PM EDT us Analy Chen MD LAB BLOOD ORDERABLES Final Re sult [facility] [address] [place] [phone] from Last 3 Months or Most Recently Relevant to Health Maintenance Insurance [place] [employer] MEDICA[employer] STAND ADULT Care Teams Telephone Engineer Relationship Specialty Start Date End Date Nai Menendez MD [address] [place] [phone] PCP - General Internal Medicine 09/25/24 Phuong Fink Project Management ProfessionalMonomer Purification Operator 12/05/24
--- OUTSIDE RECORDS SUMMARY | 2025-02-13 17:08 | XMS_ITS | Encounter Summary ---
Author Organization [employer] Address [address] [facility] 7 [place] [address] Care Team Providers Care Administrative Volunteer Name Role Phone Nai Menendez MD Primary Care Provider [phone]- [phone] Reason for Visit * Reason Onset Date Comments Pt1 10/10/2024 Encounter Details Date Type Department Care Team ([facility] Contact Info) Description 10/10/2024 Telephone [facility] [address] [place] [address] Nai Menendez MD [address] [place] [address] Pt1 Social History Tobacco Use Types Packs/Day [...] Y/N: Yes Provider name or facility name: [facility] Address: [address] [place] [address] [place] [address] Escort needed: Y/N: No Do you have a wheelchair: Y/N: No If yes- Manual or electric: n/a Visits: 2-3 times a month for 6 months documented in this encounter Plan of Treatment Upcoming Encounters Date Type Department Care Team ([facility] st Contact Info) Description 05/24/2025 9:45 AM EDT Office Visit [facility] [address] [place] [address] Nai Menendez MD [address] [place] [address] documented as of this encounter Visit Diagnoses Not on filedocumented in this encounter Additional Health Concerns Assessment Noted Time PHQ-9 Depression Total Score: 4 02/02/20 9:37 AM EDT documented as of this encounter Care Teams Administrative Volunteer Relationship Specialty Start Date End Date Nai Menendez MD [address] [place] [address] PCP - General Internal Medicine 09/25/24 Phuong Fink Assistant Account ExecutiveBand Tier 12/05/24 documented as of this encounter
--- OUTSIDE RECORDS SUMMARY | 2025-02-13 17:08 | XMS_ITS | Encounter Summary ---
Author Organization [employer] Address [address] [facility] 7t [place] [address] Care Team Providers Care Associate Professor Of Engineering Name Role Phone Analy Chen MD Primary Care Provider [phone] Nai Menendez MD Primary Care Provider [phone] Reason for Visit * Reason Onset Date Comments Nurse Triage 02/09/2024 Encounter Details Date Type Department Care Team (Late st Contact Info) Description 02/09/2024 Telephone [facility] [address] [place] [address] Analy Chen MD [address] [place] [address] Nurse Triage Social History Tobacco Use Types [...] of previous surgery. No apts available in [facility] today or tomorrow. Pt is advised to come [facility] today for provider to see Pt [...] 9:45 AM EDT Office Visit [facility] [address] [place] [address] Nai Menendez MD [address] [place] [address] documented as of this encounter Visit Diagnoses Not on filedocumented in this encounter Additional Health Concerns Assessment Noted Time PHQ-9 Depression Total Score: 4 02/02/20 24 9:37 AM EDT documented as of this encounter Care Teams Associate Professor Of Engineering Relationship Specialty Start Date End Date Analy Chen MD [address] [place] [address] PCP - General Internal Medicine 02/02/24 09/24/24 Nai Menendez MD [address] [place] [address] PCP - General Internal Medicine 09/25/24 Phuong Fink Cashiers SupervisorNitro Worker 12/05/24 documented as of this encounter
--- OUTSIDE RECORDS SUMMARY | 2025-02-13 17:08 | XMS_ITS | Clinical Summary ---
Author Organization [facility] Address [address] [place] [address] Phone Care Team Providers Care Fountain Roller Assembler Name Role Phone Nai Menendez MD Primary Care Provider [phone] Allergies No known active allergies Medications amLODIPine (NORVASC) 5 mg tablet Take 1 tablet (5 mg total) by mouth daily. 5 12/12/19 26 Active celecoxib (CeleBREX) 100 mg capsule 4 Active cetirizine (ZyrTEC) 10 mg tablet Take 1 tablet (10 mg total) by mouth daily. 5 11/30/19 26 Active cyclobenzaprine (FLEXERIL) 10 mg tablet Take 1 tablet (10 mg total) by mouth 3 times daily. 5 Active gabapentin (NEURONTIN) 300 mg capsule Take 1 capsule (300 mg total) by mouth 3 times daily. 4 Active lisinopriL (PRINIVIL,ZESTR IL) 20 mg tablet Take 1 tablet (20 mg total) by mouth 1 (one) time each day. 4 Active omeprazole (PRILOSEC) 20 mg tablet,delayed release (DR/EC) Take 1 tablet (20 mg total) by mouth daily. 5 Active Imitrex 25 mg tablet Take 1 tablet (25 mg total) by mouth 1 (one) time if needed. 4 Active tamsulosin (FLOMAX) 0.4 mg 24 hr capsule Take 2 capsules (0.8 mg total) by mouth daily. 4 Active mirtazapine (REMERON) 7.5 mg tablet Take 1 tablet (7.5 mg total) by mouth at bedtime. 4 Active acetaminophen (TYLENOL) 500 mg tablet Take 2 tablets (1,000 mg total) by mouth every 8 (eight) hours. 24 tablet 5 Active oxyCODONE (ROXICODONE) 5 mg immediate release tablet Take 1 tablet (5 mg total) by mouth every 6 (six) hours if needed for severe pain. Max Daily Amount: 20 mg 8 tablet 5 Active docusate sodium (COLACE) 100 mg capsule Take 1 capsule (100 mg total) by mouth 2 (two) times a day. 14 each 5 Active fentaNYL (DURAGESIC) 25 mcg/hr Place 1 patch on the skin every 3rd (third) day. Max Daily Amount: 1 patch 10 patch 5 03/07/20 25 Active acetaminophen (TYLENOL 8 HOUR) 650 mg 8 hr tablet Take 1 tablet (650 mg total) by mouth every 8 hours as needed. 5 01/19/20 25 Discontinu ed(Stop Taking at Discharge) Active Problems Problem Noted Date Diagnosed Date Recurrent right inguinal hernia 12/20/2024 Hx of bilateral inguinal hernia repair 5 Encounters Date Type Department Care Team Description 02/05/2025 9:15 AM EDT Office Visit Bariatric Surgery [facility] [address] [address] Zayra Cuevas MD S/P laparoscopic hernia repair (Primary Dx); Right groin pain; Seroma due to trauma (CMS/[facility] V24) 02/04/2025 11:11 AM EDT - 02/04/2025 11:59 PM EDT Hospital Encounter [facility] Ultrasound [address] [place] [phone] Right groin pain; Hx of right inguinal hernia repair Discharge Disposition: Home or Self Care 02/01/2025 Telephone Bariatric Surgery [facility] [address] [address] Zayra Cuevas MD Advice Only (PO in pain) 01/18/2025 11:13 AM EDT Anesthesia Event [facility] OR [address] [place] [phone] Aguilar Presley MD Sobo, Kathleen, CRNA 01/18/2025 10:30 AM EDT - 01/18/2025 1:00 PM EDT Surgery [facility] OR [address] [place] [phone] Zayra Cuevas MD DAVINCI REPAIR RECURRENT RIGHT INGUINAL HERNIA; WITH MESH [12020 (CPT??)] 01/18/2025 9:00 AM EDT - 01/18/2025 4:50 PM EDT Hospital Encounter [facility] OR [address] [place] [phone] Zayra Cuevas MD Recurrent right inguinal hernia; Hx of bilateral inguinal hernia repair Discharge Disposition: Home or Self Care 12/20/2024 8:45 AM EST Office Visit Bariatric Surgery - [place] 175 [facility] [address] [place] [address] Zayra Cuevas MD Recurrent inguinal hernia of right side without obstruction or gangrene (Primary Dx); Inguinal pain, unspecified laterality 12/20/2024 Telephone General Surgery - [place] 175 [facility] [address] [place] [address] Yolande Avendano MA from Last 3 Months Surgical History Surgery Date Site/Laterality Comments MENISCECTOMY HERNIA REPAIR APPENDECTOMY OTHER SURGICAL HISTORY 11/01/1984 - 10/31/1985 testicular tortion UPPER GASTROINTESTINAL ENDOSCOPY Medical History Medical History Date Comments Hypertension GERD (gastroesophageal reflux disease) Liver disease Kidney stones Hiatal hernia Social History Tobacco Use Types Packs/Day Years Used Date Smoking Tobacco: Never Smokeless Tobacco: Never Tobacco Cessation:Counseling Given: Not Answered Interpersonal Safety Answer Date Record ed Physical Abuse 01/18/2025 Verbal Abuse 01/18/2025 Sex and Gender Information Value Date Recorded Sex Assigned at Male 12/27/2024 2:37 PM EST Legal Sex Male 11:39 AM EDT Gender Identity Male 12/27/2024 2:37 PM EST Sexual Orientation Straight 12/27/2024 2: 37 PM EST Obstetrics History Last Filed Vital Signs Vital Sign Reading Time Taken Comments Blood Pressure 135/91 02/05/2025 9:06 AM EDT Pulse 96 02/05/2025 9:06 AM EDT Temperature 36.5 ??C (97.7 ??F) 02/05/2025 9:06 AM ED T Respiratory Rate 16 01/18/2025 3:37 PM EDT Oxygen Saturation 99% 01/18/2025 3:37 PM EDT Inhaled Oxygen Concentration - - Weight 69.9 kg (154 lb) 02/05/2025 9:06 AM EDT Height 167.6 cm (5' 6 ) 02/05/2025 9:06 AM EDT Body Mass Index 24.86 02/05/2025 9:06 AM EDT Plan of Treatment Upcoming Encounters Date Type Department Care Team (Late st Contact Info) Description 03/12/2025 9:30 AM EDT Office Visit Bariatric Surgery - [place] 175 [facility] [address] [place] [address] Zayra Cuevas MD 175 [facility] [address] [place] [address] Health Maintenance Due Date Last Done Comments Hepatitis A Vaccines (1 of 2 - Risk 2-dose series) 01/23/1991 Hepatitis B Vaccines (1 of 3 - 19+ 3-dose series) 01/23/1991 Pneumococcal Vaccine: 50+ Years (1 of 1 - PCV) 01/23/2022 Zoster Vaccines (1 of 2) 01/23/2022 COVID-19 Vaccine (3 - 2023-2 5 season) 2024 04/03/2021, 03/06/2021 Hepatitis C Screening 08/09/2024 Social Influencers of Health Screening 08/09/2024 Influenza Vaccine (Season Ended) 2025 Depression Screening 12/25/2025 12/25/2024 Hypertension/CHF/CAD Annual BMP Blood Test 01/11/2026 01/11/2025, 09/25/2024 Colorectal Cancer Screening: FIT-DNA (Cologuard) 02/20/2027 [...] age to complete this topic Meningococcal B Vaccine Aged Out No l onger eligible based on patient's age to complete [...] on patient's age to complete this topic Medical Devices Implanted Type Area Travel Trailer Components Assembler Device Identifier Shelf Expiration Date Model / Serial / Lot Mesh 3dmax Lght Lg 4.1x6.2 R 4.1x6.2in - Sn/A - [id number] Implanted:Qty: 1 on 01/18/2025 by Zayra Cuevas MD at [facility] Surgical Mesh Sling Implants Right: Abdomen CR BARD - DAVOL DIV 04/28/2029 [id number] / N/A / [id number] Procedures Procedure Name Priority Date/Time Associated Diagnosis Comments US ABDOMEN LIMITED STAT 02/04/2025 12 :06 PM EDT Right groin pain Hx of right inguinal hernia repair OXYGEN THERAPY, ADULT Routine 01/18/2025 1:41 PM EDT TISSUE EXAM Routine 01/18/2025 12:40 PM EDT Recurrent right inguinal hernia Hx of bilateral inguinal hernia repair TH AN ENDOTRACHEAL(NO CHARGE) Routine 01/18/2025 11:36 AM EDT NM LAP SURG REPR INITIAL INGUINAL HERNIA 01/18/2025 11:15 AM EDT Recurrent right inguinal hernia Hx of bilateral inguinal hernia repair PROCEDURAL ECG Routine 01/01/2025 11:22 AM EST from Last 3 Months Results * US Abdomen Limited (02/04/2025 12:06 PM EDT) Anatomical Region Laterality Modality Body Ultrasound 02/04/2025 12:2 0 PM EDT Impressions 02/04/2025 12:24 PM EDT Up to 7.0 cm hypoechoic mass/collection in the area of clinical concern. The margins suggest the presence of mesh. Possibilities include a postoperative seroma. No peristalsing bowel demonstrated -------- FINAL REPORT -------- Dictated By: Mark Oneil Dictated Date: 02/04/2025 12:20 ET Assigned Physician: Mark Oneil Reviewed and Electronically Signed By: Mark Oneil Signed Date: 02/04/2025 12:24 ET Workstation ID: [id number] Transcribed By: Self Edit Transcribed Date: 02/04/2025 12:20 ET Narrative 02/04/2025 12:24 PM EDT EXAMINATION: US , RIGHT LOWER QUADRANT CLINICAL INFORMATION: Recent right inguinal hernia repair. Severe pain. Palpable abnormality COMPARISON: None. TECHNIQUE: High-frequency linear transducer examination with attention to the area of clinical concern The area of clinical concern in the area of previous right inguinal hernia repair was examined with a high-frequency linear transducer. FINDINGS: QUALITY: Adequate In the area of clinical concern there is a 7.0 x 4.1 x 5.0 cm irregular hypoechoic abnormality which appears to be between the subcutaneous tissues and the bony structures. There is no bowel signature. There is no peristalsis. No definite evidence of gas. The margins have a somewhat serpiginous corrugated appearance raising the possibility of some mesh. Procedure Note Mark Oneil MD - 02/04/2025 EXAMINATION: US , RIGHT LOWER QUADRANT CLINICAL INFORMATION: Recent right inguinal hernia repair. Severe pain. Palpable abnormality COMPARISON: None. TECHNIQUE: High-frequency linear transducer examination with attention to the area ofclinical concern The area of clinical concern in the area of previous right inguinal herniarepair was examined with a high-frequency linear transducer. FINDINGS: QUALITY: Adequate In the area of clinical concern there is a 7.0 x 4.1 x 5.0 cm irregularhypoechoic abnormality which appears to be between the subcutaneoustissues and the bony structures. There is no bowel signature. There is no peristalsis. No definite evidenceof gas. The margins have a somewhat serpiginous corrugated appearance raising thepossibility of some mesh. IMPRESSION: Up to 7.0 cm hypoechoic mass/collection in the area of clinical concern. The margins suggest the presence of mesh. Possibilities include apostoperative seroma. No peristalsing bowel demonstrated -------- FINAL REPORT -------- Dictated By: Mark Oneil Dictated Date: 02/04/2025 12:20 ET Assigned Physician: Mark Oneil Reviewed and Electronically Signed By: Mark Oneil Signed Date: 02/04/2025 12:24 ET Workstation ID: [id number] Transcribed By: Self Edit Transcribed Date: 02/04/2025 12:20 ET us Zayra Cuevas MD IMG US PROCEDURES Final Result * Tissue exam (01/18/2025 12:40 PM EDT) Final Diagnosis Hernia, Inguinal Canal, right-herniorrha phy: -HERNIA SAC 01/25/2025 9:09 AM EDT [facility] Gross Description A. Inguinal Canal, right hernia content: Labeled right ing Canal . Received in formalin is a 2.5 x 1.5 x 1.0 cm soft, pink to yellow fibrovascular portion of adipose tissue which is sectioned. The cut surfaces show two pace-pink lymph nodes measuring 0.35 cm and 0.9 cm in greatest diameter surrounded by unremarkable fibrovascular adipose tissue. The specimen is submitted in entirety in two cassettes (1-larger lymph node with surrounding tissue, 2-smaller lymph node with surrounding tissue), one piece. TS 01/25/2025 9:09 AM EDT [facility] Disclaimer Unless otherwise specified, all tissue is 10% NB formalin fixed and paraffin embedded. 01/25/2025 9:09 AM EDT [facility] Tissue Inguinal canal structure / Unknown 01/18/2025 12:40 PM EDT 01/18/2025 2:40 PM EDT us Zayra Cuevas MD LAB PATHOLOGY ORDERABLE S Final Result [facility] [address] [place] [address], [place] [phone] * TH AN ENDOTRACHEAL(NO CHARGE) (01/18/2025 11:36 AM EDT) Narrative Shahnaz Wade CRNA - 01/18/2025 11:36 AM EDT Shahnaz Wade CRNA ? 01/18/2025 11:37 AM General Information and Staff Patient location during procedure: OR Performed by: Shahnaz Wade CRNA Authorized by: Iggy Solares MD ?? Intubation Airway not difficult Urgency: elective Final Airway Details Successful airway: ETT Successful intubation technique: direct laryngoscopy Facilitating devices/methods: intubating stylet Endotracheal tube insertion site: oral Blade: Emili Blade size: #4 ETT size (mm): 8.0 Cormack-Lehane Classification: grade IIb - view of arytenoids or posterior of glottis only Placement verified by: chest auscultation and capnometry Measured from: teeth ETT to teeth (cm): 22 Number of attempts at approach: 1Final airway type: endotracheal airway Indications and Patient Condition Indications for airway management: anesthesia Spontaneous Ventilation: absent Sedation level: Yes Preoxygenated: yes Soft Tissue Damage: No Dentition Unchanged: Yes Patient position: sniffing MILS maintained throughout Mask difficulty assessment: 2 - vent by mask + OA or adjuvant +/- NMBA us Iggy Solares MD ANESTHESIA ORDERABLES Final Re sult * ECG 12 lead - Procedural (No Charge) (01/01/2025 11:22 AM EST) Ventricular Rate ECG 69 BPM GEMUSE Atrial Rate 69 BPM GEMUSE P-R Interval 148 ms GEMUSE QRS Duration 104 ms GEMUSE Q-T Interval 370 ms GEMUSE QTc 396 ms GEMUSE P Wave [place] 58 degrees GEMUSE R [place] 6 degrees GEMUSE T [place] 42 degrees GEMUSE ECG Interpretation Normal sinus rhythm Normal ECG When compared with ECG of 23-MAY-2024 14:03, QRS axis Shifted right Confirmed by Edgar CHEW JOHN ([id number]) on 01/01/2025 8:08:21 PM GEMUSE 01/01/2025 11:2 2 AM EST 01/01/2025 8:08 PM EST us Zayra Cuevas MD ECG ORDERABLES Final R esult GEMUSE from Last 3 Months Insurance MEDICAID - [place] Care Teams Fountain Roller Assembler Relationship Specialty Start Date End Date Nai Menendez MD [address] [place], [place] PCP - General Internal Medicine 12/14/24
--- OUTSIDE RECORDS SUMMARY | 2025-02-13 17:08 | XMS_ITS | Encounter Summary ---
Author Organization [employer] Address [address] [place] [address] Care Team Providers Care Air Plant Engineer Name Role Phone Nai Menendez MD Primary Care Provider [phone] Encounter Details Date Type Department Care Team (Latest Contact Info) Description 02/12/2025 Travel Social History Tobacco Use Types Packs/Day [...] 05/24/2025 9:45 AM EDT Office Visit [facility] [address] [place] [address] Nai Menendez MD [address] [place] [address] documented as of this encounter Visit Diagnoses Not on filedocumented in this encounter Additional Health Concerns Assessment Noted Time PHQ-9 Depression Total Score: 10 025 9:07 AM EST documented as of this encounter Care Teams Air Plant Engineer Relationship Specialty Start Date End Date Nai Menendez MD [address] [place] [address] PCP - General Internal Medicine 09/25/24 Phuong Fink Evaporative Cooler InstallerOracle Manager 12/05/24 documented as of this encounter
--- OUTSIDE RECORDS SUMMARY | 2025-02-13 17:08 | XMS_ITS | Encounter Summary ---
Author Organization [employer] Address [address] [facility] [address] [place] [address] Care Team Providers Care Cistern Room Working Supervisor Name Role Phone Nai Menendez MD Primary Care Provider [phone] Encounter Details Date Type Department Care Team (Late st Contact Info) Description 12/21/2024 Telephone [facility] MED[facility] [address] [place] [address] Nai Menendez MD [address] [place], [place] [phone] Social History Tobacco Use Types Packs/Day Years [...] Description 05/24/2025 9:45 AM EDT Office Visit [facility] MED & PEDS [address] [place] [address] Nai Menendez MD [address] [place] [address] documented as of this encounter Visit Diagnoses Not on filedocumented in this encounter Additional Health Concerns Assessment Noted Time PHQ-9 Depression Total Score: 4 02/02/20 9:37 AM EDT documented as of this encounter Care Teams Cistern Room Working Supervisor Relationship Specialty Start Date End Date Nai Menendez MD [address] [place] [address] PCP - General Internal Medicine 09/25/24 Phuong Fink Manager AgencyDirector Of Mechanical Engineering 12/05/24 documented as of this encounter
--- OUTSIDE RECORDS SUMMARY | 2025-02-13 17:08 | XMS_ITS | Encounter Summary ---
Author Organization [employer] Address [address] [facility] [address] [place] [address] Care Team Providers Care Sandwich Hand Name Role Phone Nai Menendez MD Primary Care Provider [phone] Reason for Visit * Reason Onset Date Comments pre op 12/21/2024 Encounter Details Date Type Department Care Team ([facility] Contact Info) Description 12/21/2024 Telephone [facility] MED [facility] PEDS [address] [place] [address] Nai Menendez MD [address] [place] [address] pre op Social History Tobacco Use Types [...] Yes EKG: Yes Surgeon's name: Facility name: [facility]. Procedure will be done at [facility] Surgeon's office number: [phone] Surgeon's office fax number: [phone] Contact name (person you spoke with): Kim Last office note from surgeon requested: No Send Message to Sima Ferraro and Josef Muhammad documented in this encounter Plan of Treatment Upcoming Encounters Date Type Department Care Team ([facility] st Contact Info) Description 05/24/2025 9:45 AM EDT Office Visit [facility] MED & PEDS [address] [place] [address] Nai Menendez MD [address] [place] [address] documented as of this encounter Visit Diagnoses Not on filedocumented in this encounter Additional Health Concerns Assessment Noted Time PHQ-9 Depression Total Score: 4 02/02/20 24 9:37 AM EDT documented as of this encounter Care Teams Sandwich Hand Relationship Specialty Start Date End Date Nai Menendez MD [address] [place] [address] PCP - General Internal Medicine 09/25/24 Phuong Fink Nutritional AssistantFalsework Builder 12/05/24 documented as of this encounter
== END 2025-02-13 15:10 | disposition home or self-care (01) ==
LOC: HO.HOS 13:55
PROVIDERS: Visit Provider Physical Medicine & Rehabilitation
DX: M54.42 Lumbago with sciatica, left side (principal); G89.29 Other chronic pain; Z04.2 Encounter for examination and observation following work accident
CPT/HCPCS: 99204

== ENCOUNTER → 2025-02-13 13:55 | Outpatient (BNVA) | payer MEDICAID, SELFPAY | PROVIDERS: Visit Provider Physical Medicine & Rehabilitation | DX: M54.42 Lumbago with sciatica, left side (principal); G89.29 Other chronic pain | CPT/HCPCS: 99202 ==

== ENCOUNTER 2025-02-20 08:53 | Outpatient (AMB) | payer MEDICAID, SELFPAY ==
[2025-02-20 08:56] VITALS: BP 120/78; PULSE 77; O2SAT 97; BMI 25.3
--- NOTE | 2025-02-20 08:56 | MHC.OFFVIS ---
Vital Signs 02/20/25 08:56 Height 5 ft 6 in Weight 156 lb 11.979 oz BMI 25.3 BP 120/78 Blood Pressure Location Lt brachial Position Sitting Pulse 77 Pulse Source Pulse Oximeter Pulse Oximetry (%) 97 Oxygen Delivery Method Room Air Intake Visit Reasons: Low TSH Intake Note: Patient present today for Low TSH office visit. Manager Mall Required: No Accompanied by: Self / Same As Patient Allergies No Known Allergies Allergy (Verified 02/20/25 08:59) Medication List - Last Reconciled 02/20/25 by Virginie Duarte MD diclofenac sodium 1% topical TID fentanyl 12 mcg/hr 1 patch transdermal Q72H gabapentin 300 mg PO TID lidocaine 5% 1 patch topical DAILY lisinopril 20 mg PO DAILY mirtazapine 7.5 mg PO BEDTIME omeprazole 20 mg PO BID sumatriptan succinate mg PO DAILY tadalafil (Cialis) 5 mg PO DAILY 90 days tadalafil (Cialis) 10 mg PO DAILY PRN 30 days tamsulosin mg PO DAILY HPI Comments Details: 54-year-old male coming in today for follow up of subclinical hyperthyroidism. HPI from prior visit Lab workup from 06/13/2024 showed low TSH of 0.16 with normal free T4 of 0.96. Was checked because of tremors that have been worsening for a couple of years. Denies any exposure to contrast. No preceding viral illness. He has also been having epsiodes of chest discomfort and has been worked up by a pilot control operator helper. Chest discomfort starts in jaw and radiates down. also endorses palpitations. Workup reportedly has been unremarkable. No heat or cold intolerance. gets loose stools but he says this has been going on for 3 months. no diaphoresis. Feels tired. No skin or hair changes. ? Patient denies any difficulty swallowing, pain on swallowing. Feels voice is more raspy. difficulty breathing with walking but not at rest. Patient denies any history of childhood neck radiation. Denies having ever used lithium, amiodarone or biotin supplements. Patient denies any family history of thyroid cancer . Mother has thyroid disease. sister has thyroid disease. Maternal grandmother has some sort of cancer. No fractures recently. Broken humerus at the age of 12 years by slipping from a slide. Interval history Repeat lab workup from June 2024 showed all of his labs had normalized with normal TSH of 0.36 with free T4 of 0.84. TSI was undetectable. He also underwent thyroid ultrasound in July 2024, I reviewed the images myself and no nodules were seen, the gland is slightly hypervascular but homogeneous. He continues to have the tremors. He is pending an appointment with the Neurology. Not sure when it happened. He was supposed to get blood work for me prior to this appointment, however no blood work done recently. Still continues to have non specific atypical chest pain, follows with cardiology , unremarkable work up. HAd hernia surgery last month, needs fup. Reports intermittent palpitations Physical exam General: sitting comfortably in bed in no acute distress HEENT: normocephalic/atraumatic, EOM intact, moist oral mucosa Neck: supple, symmetrical, no thyromegaly , no dorsocervical or supraclavicular fat pads Cardiac: normal heart sounds Pulm: normal breath sounds B/L, no added breath sounds Abd: not distended, no tenderness Extremities: no edema, no signs of myxedema, does have a very mild tremor Neuro: AAO x3, Speech: normal, no facial droop, moving all 4 extremities Skin: no rash Laboratory Tests 02/02/24 06/13/24 10:43 09:55 TSH 0.16 L 0.16 L Free T4 0.93 0.96 Laboratory Tests 06/13/24 06/28/24 09:55 09:17 TSH 0.16 L 0.36 Free T4 0.96 0.84 Total T3 104 Thyroid Stim Immunoglob <89 US THYROID 07/04/24 CLINICAL INFORMATION: Low TSH. COMPARISON: None available. TECHNIQUE: Linear transducer grayscale and color Doppler examination with attention to the region of the thyroid. FINDINGS: SIZE: Measurements of the thyroid lobes and nodules are given in sagittal, anteroposterior and transverse dimensions respectively. Right Thyroid Lobe: 5.6 x 1.3 x 2.0 cm, volume 7.6 mL. Parenchyma: The gland echotexture is homogeneous. Thyroid vascularity is increased. Left Thyroid Lobe: 5.0 x 1.2 x 2.2 cm, volume 6.9 mL. Parenchyma: The gland echotexture is homogeneous. Thyroid vascularity is increased. Isthmus: 0.6 cm in maximum AP dimension. No focal thyroid nodule is seen. NODES: No lymphadenopathy is seen in the tissue surrounding the thyroid gland. US/US thyroid IMPRESSION: Normal-sized gland with hypervascularity and no nodule seen. [facility] Medical History Subclinical hyperthyroidism Palpitation Shortness of breath Chest pain Hernia No known health problems Surgical History Hx of hernia repair H/O knee surgery Family History Maternal Grandmother Heart problem Paternal Grandmother Heart problem Social History Alcohol intake: never Patient Tobacco Use Status: Never used Tobacco Current occupational status: unemployed Physical Exam Vital Signs: Last Vital Signs Pulse 77 02/20/25 08:56 BP 120/78 02/20/25 08:56 Pulse Ox 97 02/20/25 08:56 Oxygen Delivery Method Room Air 02/20/25 08:56 BMI result Body Mass Index 25.3 Assessment & Plan Assessment & Plan (1) Subclinical hyperthyroidism: Code(s): E05.90 - Thyrotoxicosis, unspecified without thyrotoxic crisis or storm Category: Medical Plan: Patient with labs from 06/13/2024 that showed low TSH of 0.16 with normal free T4 of 0.96 , with similar labs from December 2023, who is also reporting significant symptoms with palpitations, tremors. Least labs were consistent with subclinical hyperthyroidism and given significant symptoms of chest discomfort intermittently plus tremors that has been worsening with possible need for treatment needed further evaluation to figure out the etiology. TSI was negative. Also repeat labs from late June 2024 showed normalization of TSH to 0.36. He could have possibly had thyroiditis that has now resolved. He also underwent thyroid ultrasound in July 2024 that did not show any discrete nodules, showed a hypervascular gland however homogeneous in appearance. He is denying taking any exogenous supplementation. No goiter palpated. At this point given resolution of abnormalities on blood work, we had ordered blood work for him to do prior to this follow up, however patient did not obtain blood work due to being overwhelmed with multiple health issues. I have asked him to do blood work today. If his blood work is still normal we will discharge back to primary care physician. Plan: -ordered TSH, free T4, total T3, to be done now Plan see above Orders: Orders Thyroid Stimulating Hormone Today E05. - Thyrotoxicosis, unspecified without thyrotoxic crisis or storm Free T4 (Free Thyroxine) Today E05 - Thyrotoxicosis, unspecified without thyrotoxic crisis or storm Triiodothyronine T3 Total Today E0. - Thyrotoxicosis, unspecified without thyrotoxic crisis or storm Coding Level of Care Code Est Pt Level 3 (63942) Diagnoses Subclinical hyperthyroidism E0
--- OUTSIDE RECORDS SUMMARY | 2025-02-20 09:19 | XMS_ITS | Encounter Summary ---
Author Organization [employer] Address [address] [facility] [address] [place] [address] Care Team Providers Care Wigs Salesperson Name Role Phone Analy Chen MD Primary Care Provider [phone] Nai Menendez MD Primary Care Provider [phone] Reason for Visit * Reason Onset Date Comments ER Follow-up 02/11/2024 Encounter Details Date Type Department Care Team (Late st Contact Info) Description 02/11/2024 Telephone [facility] [address] [place] [address] Analy Chen MD [address] [place], [place] [phone] ER Follow-up Social History Tobacco Use Types [...] ED visit on : Date: 02/08 [place] [facility] [place]en for: Skin Lump had surgery on 01/26 for hernia and still had pain with a lump Patient advised will forward to team nurse for follow up documented in this encounter Plan of Treatment Upcoming Encounters Date Type Department Care Team (Late st Contact Info) Description 05/24/2025 9:45 AM EDT Office Visit [facility] MED & PEDS [address] [place] [address] Nai Menendez MD [address] [place] [address] documented as of this encounter Visit Diagnoses Not on filedocumented in this encounter Additional Health Concerns Assessment Noted Time PHQ-9 Depression Total Score: 4 02/02/20 9:37 AM EDT documented as of this encounter Care Teams Wigs Salesperson Relationship Specialty Start Date End Date Analy Chen MD [address] [place] [address] PCP - General Internal Medicine 02/02/24 09/24/24 Nai Menendez MD [address] [place] [address] PCP - General Internal Medicine 09/25/24 Phuong Fink Bow MakerLocal Combination Truck Driver 12/05/24 documented as of this encounter
--- OUTSIDE RECORDS SUMMARY | 2025-02-20 09:19 | XMS_ITS | Encounter Summary ---
Author Organization [employer] Address [address] [facility] 7t [place] [address] Care Team Providers Care Java Groovy Developer Name Role Phone Analy Chen MD Primary Care Provider [phone] Nai Menendez MD Primary Care Provider [phone] Reason for Visit * Reason Onset Date Comments Nurse Triage 02/09/2024 Encounter Details Date Type Department Care Team (Late st Contact Info) Description 02/09/2024 Telephone [facility]INE [address] [place] [address] Analy Chen MD [address] [place] [address] Nurse Triage Social History Tobacco Use Types [...] of previous surgery. No apts available in [facility] today or tomorrow. Pt is advised to come [facility] today for provider to see Pt and [...] Description 05/24/2025 9:45 AM EDT Office Visit [facility] MED & PEDS [address] [place] [address] Nai Menendez MD [address] [place] [address] documented as of this encounter Visit Diagnoses Not on filedocumented in this encounter Additional Health Concerns Assessment Noted Time PHQ-9 Depression Total Score: 4 02/02/20 24 9:37 AM EDT documented as of this encounter Care Teams Java Groovy Developer Relationship Specialty Start Date End Date Analy Chen MD [address] [place] [address] PCP - General Internal Medicine 02/02/24 09/24/24 Nai Menendez MD [address] [place] [address] PCP - General Internal Medicine 09/25/24 Phuong Fink ShactorLeather Stamper 12/05/24 documented as of this encounter
--- OUTSIDE RECORDS SUMMARY | 2025-02-20 09:19 | XMS_ITS | Encounter Summary ---
Author Organization [employer] Address [address] [facility] 7t [place] [address] Care Team Providers Care Qa Auditor Name Role Phone Analy Chen MD Primary Care Provider [phone] Nai Menendez MD Primary Care Provider [phone] Reason for Visit * Reason Onset Date Comments Nurse Triage 09/12/2024 Encounter Details Date Type Department Care Team (Late st Contact Info) Description 09/12/2024 Telephone [facility] MEDICINE [address] [place] [address] Analy Chen MD [address] [place] [address] Nurse Triage Social History Tobacco Use Types [...] Description 05/24/2025 9:45 AM EDT Office Visit [facility] [address] [place] [address] Nia Menendez MD [address] [place] [address] documented as of this encounter Visit Diagnoses Not on filedocumented in this encounter Additional Health Concerns Assessment Noted Time PHQ-9 Depression Total Score: 4 02/02/20 9:37 AM EDT documented as of this encounter Care Teams Qa Auditor Relationship Specialty Start Date End Date Analy Chen MD [address] [place] [address] PCP - General Internal Medicine 02/02/24 09/24/24 Nai Menendez MD [address] [place] [address] PCP - General Internal Medicine 09/25/24 Phuong Fink Marine Tower OperatorAssistant Chief Of Police 12/05/24 documented as of this encounter
--- OUTSIDE RECORDS SUMMARY | 2025-02-20 09:19 | XMS_ITS | Clinical Summary ---
Author Organization [facility] Address [address] [place] [address] Care Team Providers Care Media Assistant Name Role Phone Unavailable Primary Care [...] 01/23/2017 Imm-Zoster, Recombinant (1 of 2) 01/23/2022 Odx-QTMFW-20 ( - season) 2024 021, 03/06/2021 Imm-Influenza (#1) 2024 Alcohol and Drug Screen 11/01/2024 Depression Annual Screen 11/01/2024 Insurance COVID19 [facility] UNINSURED TESTING AND TREATMENT FUND
--- OUTSIDE RECORDS SUMMARY | 2025-02-20 09:19 | XMS_ITS | Encounter Summary ---
Author Organization [employer] Address [address] [facility] 7t [place] [address] Care Team Providers Care Plant And Maintenance Technician Name Role Phone Analy Chen MD Primary Care Provider [phone] Nai Menendez MD Primary Care Provider [phone] Reason for Visit * Reason Onset Date Comments Call Back Request 06/09/2024 Encounter Details Date Type Department Care Team (Late st Contact Info) Description 06/09/2024 Telephone [facility] MEDICINE [address] [place] [address] Analy Chen MD [address] [place] [address] Call Back Request Social History Tobacco Use [...] Description 05/24/2025 9:45 AM EDT Office Visit [facility] MED & PEDS [address] [place] [address] Nai Menendez MD [address] [place] [address] documented as of this encounter Visit Diagnoses Not on filedocumented in this encounter Additional Health Concerns Assessment Noted Time PHQ-9 Depression Total Score: 4 02/02/20 9:37 AM EDT documented as of this encounter Care Teams Plant And Maintenance Technician Relationship Specialty Start Date End Date Analy Chen MD [address] [place] [address] PCP - General Internal Medicine 02/02/24 09/24/24 Nai Menendez MD [address] [place] [address] PCP - General Internal Medicine 09/25/24 Phuong Fink Picker Box OperatorSales Account Manager 12/05/24 documented as of this encounter
--- OUTSIDE RECORDS SUMMARY | 2025-02-20 09:19 | XMS_ITS | Encounter Summary ---
Author Organization [employer] Address [address] [facility] 7 [place] [address] Care Team Providers Care Linux Vmware Administrator Name Role Phone Nai Menendez MD Primary Care Provider [phone] Reason for Visit * Reason Onset Date Comments pre op 12/21/2024 Encounter Details Date Type Department Care Team ([facility] Contact Info) Description 12/21/2024 Telephone [facility] MED & PEDS [address] [place] [address] Nai Menendez MD [address] [place] [address] pre op Social History Tobacco Use Types [...] Yes EKG: Yes Surgeon's name: Facility name: [facility]. Procedure will be done at [facility] Surgeon's office number: [phone] Surgeon's office fax number: [phone] Contact name (person you spoke with): Kim Last office note from surgeon requested: No Send Message to Sima Ferraro and Josef Muhammad documented in this encounter Plan of Treatment Upcoming Encounters Date Type Department Care Team ([facility] st Contact Info) Description 05/24/2025 9:45 AM EDT Office Visit [facility] MED & PEDS [address] [place] [address] Nai Menendez MD [address] [place] [address] documented as of this encounter Visit Diagnoses Not on filedocumented in this encounter Additional Health Concerns Assessment Noted Time PHQ-9 Depression Total Score: 4 02/02/20 24 9:37 AM EDT documented as of this encounter Care Teams Linux Vmware Administrator Relationship Specialty Start Date End Date Nai Menendez MD [address] [place] [address] PCP - General Internal Medicine 09/25/24 Phuong Fink Steam EngineerMachine Set Up Operator Paper Goods 12/05/24 documented as of this encounter
--- OUTSIDE RECORDS SUMMARY | 2025-02-20 09:19 | XMS_ITS | Encounter Summary ---
Author Organization [employer] Address [address] [facility] 7 [place] [address] Care Team Providers Care Literary Agent Name Role Phone Nai Menendez MD Primary Care Provider [phone] Reason for Visit * Reason Onset Date Comments Medication Question 12/01/2024 Encounter Details Date Type Department Care Team ([facility] st Contact Info) Description 12/01/2024 Telephone [facility] MEDICINE [address] [place] [address] Nai Menendez MD [address] [place], [place] [phone] Medication Question Social History Tobacco Use Types [...] has questions regarding medication prescribed on 11/30/24. Testing Lead explained cetirizine 10mg for allergies/post nasal drip, [...] Description 05/24/2025 9:45 AM EDT Office Visit [facility] MED & PEDS [address] [place] [address] Nai Menendez MD [address] [place] [address] documented as of this encounter Visit Diagnoses Not on filedocumented in this encounter Additional Health Concerns Assessment Noted Time PHQ-9 Depression Total Score: 4 02/02/20 24 9:37 AM EDT documented as of this encounter Care Teams Literary Agent Relationship Specialty Start Date End Date Nai Menendez MD [address] [place] [address] PCP - General Internal Medicine 09/25/24 Phuong Fink Fire WatcherElectrical Line Mechanic 12/05/24 documented as of this encounter
--- OUTSIDE RECORDS SUMMARY | 2025-02-20 09:19 | XMS_ITS | Encounter Summary ---
Author Organization [employer] Address [address] [facility] 7t [place] [address] Care Team Providers Care Pickling Grader Name Role Phone Nai Menendez MD Primary Care Provider [phone] Encounter Details Date Type Department Care Team (Late st Contact Info) Description 12/21/2024 Telephone [facility] MEDICINE [address] [place] [address] Nai Menendez MD [address] [place], [place] [phone] Social History Tobacco Use Types Packs/Day Years [...] 05/24/2025 9:45 AM EDT Office Visit [facility] [address] [place] [address] Nai Menendez MD [address] [place] [address] documented as of this encounter Visit Diagnoses Not on filedocumented in this encounter Additional Health Concerns Assessment Noted Time PHQ-9 Depression Total Score: 4 02/02/20 9:37 AM EDT documented as of this encounter Care Teams Pickling Grader Relationship Specialty Start Date End Date Nai Menendez MD [address] [place] [address] PCP - General Internal Medicine 09/25/24 Phuong Fink Divorce MediatorQuality Assurance Project Manager 12/05/24 documented as of this encounter
--- OUTSIDE RECORDS SUMMARY | 2025-02-20 09:19 | XMS_ITS | Clinical Summary ---
Author Organization [address] [facility] Address [address] [place] [address] Phone Care Team Providers Care Installations Inspector Name Role Phone Nai Menendez MD Primary Care Provider [phone] Allergies No known active allergies Medications amLODIPine [...] mg total) by mouth daily. 07/06/2024 Active mirtazapine (REMERON) 7.5 mg tablet Take 1 tablet (7.5 mg total) by mouth at bedtime. 06/09/2024 Active acetaminophen (TYLENOL) 500 mg tablet Take 2 tablets (1,000 mg total) by mouth every 8 (eight) hours. 24 tablet 01/18/2025 Active oxyCODONE (ROXICODONE) 5 mg immediate release tablet Take 1 tablet (5 mg total) by mouth every 6 (six) hours if needed for severe pain. Max Daily Amount: 20 mg 8 tablet 01/18/2025 Active docusate sodium (COLACE) 100 mg capsule Take 1 capsule (100 mg total) by mouth 2 (two) times a day. 14 each 01/18/2025 Active fentaNYL (DURAGESIC) 25 mcg/hr Place 1 patch on the skin every 3rd (third) day. Max Daily Amount: 1 patch 10 patch 02/05/2025 03/07/20 25 Active Active Problems Problem Noted Date Diagnosed Date Recurrent right inguinal hernia 12/20/2024 Hx of bilateral inguinal hernia repair Encounters Date Type Department Care Team Description 02/05/2025 9:15 AM EDT Office Visit Bariatric Surgery [address] [address] Zayra Cuevas MD S/P laparoscopic hernia repair (Primary Dx); Right groin pain; Seroma due to trauma ([facility] V24) 02/04/2025 11:11 AM EDT - 02/04/2025 11:59 PM EDT Hospital Encounter [facility] Ultrasound [address] [place] [address] Right groin pain; Hx of right inguinal hernia repair Discharge Disposition: Home or Self Care 02/01/2025 Telephone Bariatric Surgery [facility] [address] [address] Zayra Cuevas MD Advice Only (PO in pain) 01/18/2025 11:13 AM EDT Anesthesia Event [facility] Main OR [address] [place] [phone] Aguilar Prelsey MD Sobo, Kathleen, CRNA 01/18/2025 10:30 AM EDT - 01/18/2025 1:00 PM EDT Surgery [facility] Main OR [address] [place] [phone] Zayra Cuevas MD DAVINCI REPAIR RECURRENT RIGHT INGUINAL HERNIA; WITH MESH [[id number] (CPT??)] 01/18/2025 9:00 AM EDT - 01/18/2025 4:50 PM EDT Hospital Encounter [facility] Main OR [address] [place] [phone] Zayra Cuevas MD Recurrent right inguinal hernia; Hx of bilateral inguinal hernia repair Discharge Disposition: Home or Self Care 12/20/2024 8:45 AM EST Office Visit [facility] [place] [address] [facility] [address] [place] [address] Zayra Cuevas MD Recurrent inguinal hernia of right side without obstruction or gangrene (Primary Dx); Inguinal pain, unspecified laterality 12/20/2024 Telephone General Surgery [facility] [address] [facility] [address] [place] [address] Yolande Avendano MA from Last [...] AM EDT Office Visit [facility] - [place] [address] [facility] [address] [place] [address] Zayra Cuevas MD 175 [facility] [address] [place] [address] Health Maintenance Due Date Last [...] this topic Medical Devices Implanted Type Area Back Order Clerk Device Identifier Shelf Expiration Date Model / Serial / Lot Mesh 3dmax Lght Lg 4.1x6.2 R 4.1x6.2in - Sn/A - [id number] Implanted:Qty: 1 on 01/18/2025 by Zayra Cuevas MD at [facility] Surgical Mesh Sling Implants Right: Abdomen CR BARD - DAVOL DIV 04/28/2029 [id number] / N/A / [id number] Procedures Procedure Name Priority Date/Time Associated Diagnosis Comments US ABDOMEN LIMITED STAT 02/04/2025 12 :06 PM EDT Right groin pain Hx of right inguinal hernia repair OXYGEN THERAPY, ADULT Routine 01/18/2025 1:41 PM EDT TISSUE EXAM Routine 01/18/2025 12:40 PM EDT Recurrent right inguinal hernia Hx of bilateral inguinal hernia repair TH AN ENDOTRACHEAL(NO CHARGE) Routine 01/18/2025 11:36 AM EDT WI LAP SURG REPR INITIAL INGUINAL HERNIA 01/18/2025 [...] Signed Date: 02/04/2025 12:24 ET Workstation ID: [id number] Transcribed By: Self Edit Transcribed Date: 02/04/2025 [...] Date: 02/04/2025 12:20 ET Assigned Physician: Mark nOeil Reviewed and Electronically Signed By: Mark Oneil Signed Date: 02/04/2025 12:24 ET Workstation ID: [id number] Transcribed By: Self Edit Transcribed Date: 02/04/2025 12:20 ET us Zayra Cuevas MD IMG US PROCEDURES Final Result * Tissue exam (01/18/2025 12:40 PM EDT) Final Diagnosis Hernia, Inguinal Canal, right-herniorrha phy: -HERNIA SAC 01/25/2025 9:[address] [facility] Gross Description A. Inguinal Canal, [...] tissue), one piece. TS 01/25/2025 9:[address] [facility] Disclaimer Unless otherwise specified, all tissue is 10% NB formalin fixed and paraffin embedded. 01/25/2025 9:09 AM EDT [facility] Tissue Inguinal canal structure / Unknown 01/18/2025 12:40 PM EDT 01/18/2025 2:40 PM EDT Zayra Cuevas MD LAB PATHOLOGY ORDERABLE S Final Result [facility] [address] [place] [address], [place] [phone] * TH AN ENDOTRACHEAL(NO CHARGE) (01/18/2025 11:36 [...] GEMUSE QTc 396 ms GEMUSE P Wave Bath 58 degrees GEMUSE R Bath 6 degrees GEMUSE T Bath 42 degrees GEMUSE ECG Interpretation Normal sinus rhythm Normal ECG When compared with ECG of 23-MAY-2024 14:03, QRS axis Shifted right Confirmed by Edgar CHEW JOHN ([id number]) on 01/01/2025 8:08:21 PM GEMUSE 01/01/2025 11:2 2 AM EST 01/01/2025 8:08 PM EST us Zayra Cuevas MD ECG ORDERABLES Final R esult GEMUSE from Last 3 Months Insurance MEDICAID - [place] Care Teams Installations Inspector Relationship Specialty Start Date End Date Nai Menendez MD [address] [place] [address] PCP - General Internal Medicine 12/14/24
--- OUTSIDE RECORDS SUMMARY | 2025-02-20 09:19 | XMS_ITS | Encounter Summary ---
Author Organization [employer] Address [address] [facility] [address], [place] [address] Care Team Providers Care Wood Crew Supervisor Name Role Phone Analy Chen MD Primary Care Provider [phone] Nai Menendez MD Primary Care Provider [phone] Reason for Referral * Consultation (Routine) - Closed Specialty Diagnoses / Procedures Referred By Contac t Referred To Contact Cardiology Diagnoses Primary hypertension Other chest pain Nai Menendez MD [address] [place] [phone] Phone: tel: fax: Stephan Batista MD [address] [place] [address] Phone: tel: fax: Referral ID Status Reason Start Date Expiration Date V isits Requested Visits Authorized [id number] Closed Specialty Services Required 04/17/2024 04/17/2025 1 1 Encounter Details Date Type Department Care Team (Late st Contact Info) Description 04/17/2024 Orders Only [facility] [address] [place] [address] [phone] Nai Menendez MD [address] [place] [phone] Primary hypertension (Primary Dx); Other chest pain [...] Description 05/24/2025 9:45 AM EDT Office Visit [facility]EDS [address] [place] [address] Nai Menendez MD [address] [place] [address] Scheduled Referrals Name Type Priority Associated Diagnoses [...] documented as of this encounter Care Teams Wood Crew Supervisor Relationship Specialty Start Date End Date Analy Chen MD [address] [place] [address] PCP - General Internal Medicine 02/02/24 09/24/24 Nai Menendez MD [address] [place] [address] PCP - General Internal Medicine 09/25/24 Phuong Fink Vascular SurgeonWomen'S Health Care Nurse Practitioner 12/05/24 documented as of this encounter
--- OUTSIDE RECORDS SUMMARY | 2025-02-20 09:19 | XMS_ITS | Clinical Summary ---
Author Organization [employer] Address [address] [facility] 7t [place] [address] Care Team Providers Care Senior Mechanical Project Manager Name Role Phone Nai Menendez MD Primary Care Provider [phone] Allergies No known active allergies Medications * [...] um Nitrate 1.1-5 % pasteIndications :Dental caries [place] teeth for 2 minutes, morning and night. [...] 9:00 AM EDT Office Visit [facility] MED & PEDS [address] [place] [address] Nai Menendez MD Polydipsia (Primary Dx); Unilateral inguinal hernia without obstruction or gangrene, recurrence not specified; Primary hypertension 02/12/2025 Travel 02/06/2025 Patient Outreach [facility] [address] [place] [phone] Nai Menendez MD Care Coordination (CH[facility] outreach for SDOH food needs-referral completed /) 02/06/2025 Travel 02/05/2025 Patient Outreach [facility] [address] [place] [address] Nai Menendez MD Pre-visit Planning (SDOH screening positive and Tobacco screening negative) 02/05/2025 Patient Outreach [facility] [address] [place] [address] Nai Menendez MD Pre-visit Planning (Pre visit planning LVM ) 02/01/2025 Telephone [facility] [address] [place] [phone] Nai Menendez MD Nurse Triage 01/12/2025 Population Health Risk Score [facility] (C3) Department [address] [place] [address] [phone] Provider, Population Health Generic 01/12/2025 Telephone [facility] MED & PEDS [address] [place] [address] Analy Chen MD FAX: Pre-op 01/11/2025 1:30 PM EDT Office Visit [facility] MED & PEDS [address] [place], [place] [phone] Analy Chen MD Preop examination (Primary Dx); Primary hypertension; Adjustment disorder with mixed anxiety and depressed mood 01/11/2025 Travel 01/02/2025 [facility] Health Information Management [address] [place] [address] ProviderDarrian MD 01/02/2025 Refill [facility] PEDS [address] [place], [place] [phone] Nai Menendez MD Dysuria 12/27/2024 Travel 12/27/2024 Refill [facility] MED & PEDS [address] [place], [place] [phone] Analy Chen MD Anxiety; Adjustment insomnia 12/21/2024 Telephone [facility] MED & PEDS [address] [place], [place] [phone] Nai Menendez MD pre op 12/21/2024 Telephone [facility] [address] [place] [address] Nai Menendez MD 12/20/2024 Telephone [facility] MED & PEDS [address] [place], [place] [phone] Nai Menendez MD Results 12/18/2024 Travel 12/12/2024 10:45 AM EST Office Visit [facility] MED & PEDS [address] [place] [address] Nai Menendez MD Left hip pain (Primary Dx); Primary hypertension; Bulge in groin area; Severe right groin pain; Dysuria 12/11/2024 Travel 12/11/2024 Telephone [facility] [address] [place] [address] Nai Menendez MD Nurse Triage 12/05/2024 Telephone [facility] MED & PEDS [address] [place] [address] Nai Menendez MD Care Coordination ([facility] Asbestos Brake Lining Finisher) 12/01/[address] [address] Nai Menendez MD Medication Question 11/30/2024 1:45 PM EST Office Visit [facility] MED & PEDS [address] [place] [address] Nai Menendez MD Severe right groin pain (Primary Dx); Primary hypertension; Nasal congestion; Gastroesophageal reflux disease without esophagitis; Anxiety; Adjustment insomnia; Left hip pain; Right upper quadrant pain 11/30/2024 Travel 11/29/2024 Telephone [facility] MED & PEDS [address] [place] [address] Nai Menendez MD CHART PREP 11/24/2024 Travel 11/23/2024 Telephone [facility] MED & PEDS [address] [place] [address] Nai Menendez MD recall appt (Pt needs [...] Upcoming Encounters Date Type Department Care Team ([facility] st Contact Info) Description 05/24/2025 9:45 AM EDT Office Visit [facility] MED & PEDS [address] [place] [address] Nai Menendez MD [address] [place] [address] Health Maintenance Due Date Last Done Comments [...] 9:30 AM EDT Periodontal disease 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 PROPHYLAXIS - ADULT Routine [...] Media Lot # [id number] Lot# Expiration Date ,134 Blood 02/12/2025 9:43 AM EDT us Nai Menendez MD POINT OF CARE TEST ENTER/ED IT ORDERABLES Final Result * POCT Glucose (02/12/2025 9:43 AM EDT) Glucose Blood, POC 115 60 - 200 mg/dL QC Media Lot # [id number] Lot# Expiration Date 879, Comment:random Blood Capillary blood specimen / Unknown 02/12/2025 9:43 AM EDT Nai Menendez MD POINT OF CARE TEST ENTER/ED IT ORDERABLES Final Result * Urinalysis Complete (01/11/2025 2:30 PM EDT) Color Urine Yellow [facility] Appearance Urine Clear [facility] PH 7.5 5.0 - 9.0 [facility] Glucose Urine UA Negative Negative mg/dL [facility] Urine Blood Negative Negative [facility] Specific Icard - Urine 1.020 1.005 - 1.025 [facility] Urine Protein Negative Neg-Trace mg/dL [facility] Urine Ketones Negative Negative mg/dL [facility] Nitrite Urine Negative Negative [facility] Leukocyte Esterase Urine Negative Negative [facility] RBC Urine 0-2 0 - 2 /HPF [facility] Urine WBC 0-5 0 - 5 /HPF [facility] Urine Squamous Epithelial Cell 0-2 0 - 2 /HPF [facility] Urine Bacteria None Seen None Seen [facility] Hyaline Casts, Urine 0-2 0 - 2 /LPF [facility] Urine (Urine, Random) 01/11/2025 2:30 PM EDT 01/11/2025 5:25 PM EDT Analy Chen MD LAB URINE ORDERABLES Final Re sult [facility] [address] [place] [phone] * CBC auto differential (01/11/2025 2:10 PM EDT) White Blood Count 6.0 4.8 - 10.8 X10*3/uL [facility] Red Blood Count 4.69 4.60 - 5.80 X10*6/uL [facility] Hemoglobin 14.2 14.0 - 18.0 g/dl [facility] Hematocrit 42.7 42.0 - 52.0 % [facility] Mean Corpuscular Volume 91.0 80.0 - 98.0 fL [facility] Mean Corpuscular Hemoglobin 30.3 27.0 - 33.0 pg [facility] Mean Corpuscular HGB Conc 33.3 31.0 - 36.0 g/dl [facility] Red Cell Distribution Width 12.8 11.0 - 16.0 % [facility] Platelet Count 239 160 - 400 X10*3/uL [facility] Mean Platelet Volume 10.4 9.4 - 12.4 fL [facility] Neutrophils Percent Auto 58.1 45 - 73 % [facility] Imm Gran Pct Auto 0.3 0.0 - 0.4 % [facility] Lymphocytes Percent Auto 28.3 20 - 40 % [facility] Monocytes Percent Auto 10.8 2 - 11 % [facility] Eosinophils Percent Auto 1.7 0 - 4 % [facility] Basophils Percent Auto 0.8 0 - 2 % [facility] NRBC Pct Auto 0.0 0.0 - 0.2 /100WBC [facility] Neutrophils Absolute Auto 3.5 2.0 - 8.3 x10*3/uL [facility] Imm Gran Abs Auto 0.02 0.00 - 0.03 X10*3/uL [facility] Lymphocytes Absolute Auto 1.7 1.2 - 4.9 X10*3/uL [facility] Monocytes Absolute Auto 0.7 0.1 - 1.2 X10*3/uL [facility] Eosinophils Absolute Auto 0.1 0.0 - 0.4 X10*3/uL [facility] Basophils Absolute Auto 0.1 0.0 - 0.2 X10*3/uL [facility] NRBC Abs Auto 0.000 0.0 - 0.012 X10*3/uL [facility] Blood Venous blood specimen / Unknown 01/11/2025 2:10 PM EDT 01/11/2025 5:37 PM EDT Analy Chen MD LAB BLOOD ORDERABLES Final Re sult Performing Organization Address [facility] [[email or web address]] Co de Phone Number [facility] [address] [place] [phone] * Prothrombin Time-INR (01/11/2025 2:10 PM EDT) Prothrombin Time 12.4 10.9 - 12.4 SEC [facility] INTERNATIONAL NORM RATIO 1.1 0.9 - 1.1 [facility] Comment:INTERNATIONAL NORMAL IZED RATIO (INR) REFERENCE [...] ORDERABLES Final Re sult Performing Organization Address [facility] [[email or web address]] Co de Phone Number [facility] [address] [place] [phone] * (ABNORMAL) Hepatic Function Panel (01/11/2025 2:10 PM EDT) Bilirubin, Total 1.1(H) 0.0 - 1.0 mg/dL [facility] Bilirubin, Direct 0.3 0.0 - 0.5 mg/dL [facility] Aspartate Amino Transferase 23 5 - 37 U/L [facility] Alanine Aminotransferase 45(H) 0 - 40 U/L [facility] Total Protein 7.4 6.5 - 8.0 g/dL [facility] Albumin Level 4.0 3.5 - 5.0 g/dL [facility] Alkaline Phosphatase 48 39 - 117 U/L [facility] Blood Venous blood specimen / Unknown 01/11/2025 2:10 PM EDT 01/11/2025 5:37 PM EDT us Analy Chen MD LAB BLOOD ORDERABLES Final Re sult [facility] [address] [place] [address] [phone] * (ABNORMAL) Basic Metabolic Panel (01/11/2025 2:10 PM EDT) Sodium 143 135 - 145 mmol/L [facility] Potassium 4.2 3.3 - 5.1 mmol/L [facility] Chloride 107 96 - 108 mmol/L [facility] Carbon Dioxide 28 22 - 29 mmol/L [facility] Anion Gap 12 12 - 20 [facility] Urea Nitrogen (BUN) 19(H) 9 - 16 mg/dL [facility] Creatinine, Serum 0.89 0.5 - 1.4 mg/dL [facility] Estimated Glomerular Filt Rate >60 [facility] Comment:Chronic Kidney Disea se: Estimated GFR < 60 mL/min/1.02l0Ymlhgu Kidney Disease: Estimated GFR < 15 mL/min/1.73m2 Glucose 83 60 - 115 mg/dL [facility] Calcium 9.4 8.4 - 10.2 mg/dL [facility] Blood Venous blood specimen / Unknown 01/11/2025 2:10 PM EDT 01/11/2025 5:37 PM EDT us Analy Chen MD LAB BLOOD ORDERABLES Final Re sult [facility] [address] [place], [place] [phone] * ECG 12 lead (01/11/2025 1:48 [...] EST ? [facility] ?[address] ? [place] [address] ? Ultrasound Report ? Signed ? Patient: Osei Fink ?MR#: [id number] ?? 9 ? : 1970 ?Acct:[id number] ? Age/Sex: 54 / M ?ADM Date: 12/15/24 ? Loc: HO.HMGCX ? Attending Dr: Nai Menendez MD ? Ordering Physician: Nai Menendez MD ?? Date of Service: 12/15/24 ?? Procedure(s): US abdomen complete ?? Accession Number(s): [id number] ? cc: Nai Menendez MD ? CLINICAL [...] ? DD/ 0838 ? TD/TT: 12/16/2438 ? Environmental Health Technologist: ? Procedure Note Donarchie, Image - 12/16/2024 [facility] [place] [address] Ultrasound Report Signed Patient: Osei Fink#: [id number] 9 : 1970Acct:[id number] Age/Sex: 54 / MADM Date: 12/15/24 Loc: HO.HMGCX Attending Dr: Nai Menendez MD Ordering Physician: Nai Menendez MD Date of Service: 12/15/24 Procedure(s): US abdomen complete Accession Number(s): [id number] cc: Nai Menendez MD CLINICAL HISTORY: Right [...] in OV> 12/16/2439 DD/ 7 TD/TT: 12/16/24837 Environmental Health Technologist: Nai Menendez MD [facility] [place] PROCEDURES Edited Re sult - Final * Cologuard?? colon cancer screening (02/21/2024 7:45 AM EDT) Cologuard Result Negative Negative 03/01/20 3:29 AM EDT [facility] (CLIA #:[id number]) Comment: NEGATIVE TEST RESULT. A negative Cologuard [...] cancer. ??Following a negative Cologuard result, the [place] Cancer Society and U.S. Multi-Society Task Force screening guidelines recommend a Cologuard re-screening interval of 3 years. References: [place] [employer] Guideline for Colorectal Cancer Screening: https://www.cancer.org/cancer/elbqu-hxqowm-nnpyoo/mvgssheac-uggsckmfy-grofwqw/ac s-rec ommendations.html.; Peña WILL, Ra WILEY, Alisa SUMMERS, Colorectal Cancer Screening: Recommendations for Physicians and Patients from the U.S. Multi-Society Task Force on Colorectal Cancer Screening , Am J Gastroenterology 2017; 112:2299-7206. TEST DESCRIPTION: Composite algorithmic analysis of stool [...] Tomas et al, N Engl J Med 2014;370(14):5931-1558.) Cologuard may produce a false negative or false positive result (no colorectal cancer or precancerous polyp present at colonoscopy follow up). A negative Cologuard test result does not guarantee the absence of CRC or advanced adenoma (pre-cancer). The current Cologuard screening interval is every 3 years. ([place] [employer] Society and U.S. Multi-Society Task Force). Cologuard performance data in a 10,000 patient pivotal study using colonoscopy as the reference method can be accessed at the following location: www.[email or web address].Gimmie/results. Additional description of the Cologuard test process, warnings and precautions can be found at www.[email or web address].com. Stool specimen (specimen) 02/21/2024 7:45 AM EDT 02/23/2024 10:44 AM EDT us Analy Chen MD LAB MOLECULAR DIAGNOSTICS ORD ERABLES Final Result [facility] (CLIA #:[id number]) [place] [address] [place] [address], * Hepatitis A,B,C Profile (02/02/2024 10:43 AM EDT) Hepatitis A IgM Nonreactive Nonreactive [facility] Comment:IgM antibodies to QUINTANILLA V not detected; does not exclude earlyacute or recovered HAV infection. ~Hepatitis B Surface Antibody NONREACTIVE Nonreactive [facility] Comment:Nonreactive: < 8.00 mIU/mL Hepatitis B Core Antibody Nonreactive Nonreactive [facility] Hepatitis C Antibody Nonreactive Nonreactive [facility] Comment:Antibodies to HCV no t detected; does not exclude early acuteHCV infection. Hepatitis B Surface Ag Negative Negative [facility] Blood Venous blood specimen / Unknown 02/02/2024 10:43 AM EDT 02/02/2024 2:10 PM EDT Analy Chen MD LAB BLOOD ORDERABLES Final Re sult Performing Organization Address [facility]/ZIP Co de Phone Number [facility] [address] [place] [phone] * HIV-1/2 Antigen and Antibodies, Fourth Generation, with Reflexes (02/02/2024 10:43 AM EDT) HIV AB/AG Nonreactive Nonreactive [facility] Comment:HIV-1 p24 Ag and/or HIV-1/HIV-2 Ab not detected.A test result that is nonreactive does not exclude thepossibility of exposure to or infection with HIV-1 and/orHIV-2. Nonreactive results in this assay for individualswith prior exposure to HIV-1 and/or HIV-2 may be due toantigen and antibody levels that are below the limit ofdetection of this assay.The [employer] HIV Ag/Ab Combo assay result andsupplemental assay results should be interpreted inconjunction with the patient's clinical presentation,history and other laboratory results. If the results areinconsistent with clinical evidence, additional testing issuggested to confirm the result. Blood Venous blood specimen / Unknown 02/02/2024 10:43 AM EDT 02/02/2024 2:10 PM EDT Analy Chen MD LAB BLOOD ORDERABLES Final Re sult Performing Organization Address [facility] [[email or web address]] Co de Phone Number [facility] [address] [place] [phone] * (ABNORMAL) Lipid Panel, Standard (02/02/2024 10:43 AM EDT) Triglycerides 143 <150 mg/dL [facility] Comment:Desirable Triglyceri de: less than 150 mg/dLBorderline High Triglyceride 150-199 mg/dLHigh Triglyceride: 200-499 mg/dLVery High Triglyceride: greater than or equal to 5OO mg/dL Cholesterol 174 <200 mg/dL [facility] Comment:Desirable Cholestero l: less than 200 mg/dLBorderline High Cholesterol: 200-239 mg/dLHigh Cholesterol: greater than 239 mg/dL LDL Cholesterol Calculated 105(H) <100 mg/dL [facility] Comment:Desirable LDL: less than 100 mg/dLNear Optimal/Above Optimal LDL: 110- 129 mg/dLBorderline High LDL: 130-159 mg/dLHigh LDL: 160-189 mg/dLVery High LDL: greater than or equal to 190 mg/dL HDL Cholesterol 41 >40 mg/dL [facility] Comment:Desirable HDL: great er than 40 mg/dL Note: This HDL assay may give artificially low results in patients with liver disease. Blood Venous blood specimen / Unknown 02/02/2024 10:43 AM EDT 02/02/2024 2:10 PM EDT us Analy Chen MD LAB BLOOD ORDERABLES Final Re sult [facility] [address] [place] [phone] from Last 3 Months or Most Recently Relevant to Health Maintenance Insurance [facility] STAND ADULT Care Teams Senior Mechanical Project Manager Relationship Specialty Start Date End Date Nai Menendez MD [address] [place] [phone] PCP - General Internal Medicine 09/25/24 Phuong Fink Reliability ManagerRolled Glass Crosscutter 12/05/24
--- OUTSIDE RECORDS SUMMARY | 2025-02-20 09:19 | XMS_ITS | Encounter Summary ---
Author Organization [email or web address] Address [address] [facility] 7t [place] [address] Care Team Providers Care Customer Relations Coordinator Name Role Phone Analy Chen MD Primary Care Provider [phone] Nai Menendez MD Primary Care Provider [phone] Encounter Details Date Type Department Care Team ([facility] st Contact Info) Description 06/14/2024 Orders Only [facility]S [address] [place], [place] [phone] Nai Menendez MD [address] [place] [address] Tremor (Primary Dx); Low TSH level Social [...] Description 05/24/2025 9:45 AM EDT Office Visit [facility]S [address] [place] [address] Nai Menendez MD [address] [place] [address] documented as of this encounter Visit Diagnoses Diagnosis Tremor- Primary Abnormal involuntary movements Low TSH level documented in this encounter Additional Health Concerns Assessment Noted Time PHQ-9 Depression Total Score: 4 02/02/20 9:37 AM EDT documented as of this encounter Care Teams Customer Relations Coordinator Relationship Specialty Start Date End Date Analy Chen MD [address] [place] [address] PCP - General Internal Medicine 02/02/24 09/24/24 Nai Menendez MD [address] [place] [address] PCP - General Internal Medicine 09/25/24 Phuong Fink Bookbinding Machine OperatorBuilding Principal 12/05/24 documented as of this encounter
--- OUTSIDE RECORDS SUMMARY | 2025-02-20 09:19 | XMS_ITS | Encounter Summary ---
Author Organization [employer] Address [address] [facility] 7[address] [place] [address] Care Team Providers Care Presidential Support Specialist Name Role Phone Nai Menendez MD Primary Care Provider [phone] Encounter Details Date Type Department Care Team (Late st Contact Info) Description 01/02/2025 Orders Only [place] [facility] Information [facility] [address] [place] [address] ProviderDarrian MD Social History Tobacco Use Types [...] AM EDT Office Visit [facility] & [facility]ED[facility] [address] [place] [address] Nai Menendez MD [address] [place] [address] documented as of this encounter Procedures Procedure [...] documented as of this encounter Care Teams Presidential Support Specialist Relationship Specialty Start Date End Date Nai Menendez MD [address] [place] [address] PCP - General Internal Medicine 09/25/24 Phuong Fink Drafter Tool DesignTelephone Solicitor Supervisor 12/05/24 documented as of this encounter
--- OUTSIDE RECORDS SUMMARY | 2025-02-20 09:19 | XMS_ITS | Encounter Summary ---
Author Organization [employer] Address 75 [facility] 7 [place] [address] Care Team Providers Care Receiving Specialist Name Role Phone Nai Menendez MD Primary Care Provider [phone] Reason for Visit * Reason Onset Date Comments Pt1 10/10/2024 Encounter Details Date Type Department Care Team ([facility] Contact Info) Description 10/10/2024 Telephone [facility] CHC MED & PEDS [address] [place] [address] Nai Menendez MD 505 [place] [address] Pt1 Social History Tobacco Use Types Packs/Day [...] Y/N: Yes Provider name or facility name: [facility] Physical Therapy Facility Address: [address] [place] [address] [place] [address] Escort needed: Y/N: No Do you have a wheelchair: Y/N: No If yes- Manual or electric: n/a Visits: 2-3 times a month for 6 months documented in this encounter Plan of Treatment Upcoming Encounters Date Type Department Care Team ([facility] st Contact Info) Description 05/24/2025 9:45 AM EDT Office Visit [facility] CHC MED & PEDS [address] [place] [address] Nai Menendez MD [address] [place] [address] documented as of this encounter Visit Diagnoses Not on filedocumented in this encounter Additional Health Concerns Assessment Noted Time PHQ-9 Depression Total Score: 4 02/02/20 9:37 AM EDT documented as of this encounter Care Teams Receiving Specialist Relationship Specialty Start Date End Date Nai Menendez MD [address] [place] [address] PCP - General Internal Medicine 09/25/24 Phuong Fink Information Delivery AnalystCross Cut Saw Operator 12/05/24 documented as of this encounter
== END 2025-02-20 09:17 | disposition home or self-care (01) ==
LOC: HO.ENCR 08:54
PROVIDERS: PCP Pediatrics; Visit Provider Student in an Organized Health Care Education/Training Program
DX: E05.90 Thyrotoxicosis, unspecified without thyrotoxic crisis or storm (principal)
CPT/HCPCS: 99213

== ENCOUNTER → 2025-02-20 08:53 | Outpatient (BNVA) | payer MEDICAID, SELFPAY | PROVIDERS: PCP Pediatrics; Visit Provider Student in an Organized Health Care Education/Training Program | DX: E05.90 Thyrotoxicosis, unspecified without thyrotoxic crisis or storm (principal) | CPT/HCPCS: 99212 ==

== ENCOUNTER 2025-02-20 11:10 | Outpatient (REF) | payer MEDICAID, SELFPAY ==
--- OUTSIDE RECORDS SUMMARY | 2025-02-20 13:25 | XMS_ITS | Encounter Summary ---
Author Organization [employer] Address 75 [facility] 7t [place] [address] Care Team Providers Care Construction Estimator Name Role Phone Analy Chen MD Primary Care Provider [phone] Nai Menendez MD Primary Care Provider [phone] Encounter Details Date Type Department Care Team ([facility] st Contact Info) Description 06/14/2024 Orders Only [facility] CHC MED & PEDS [address] [place], [place] [phone] Nai Menendez MD 505 [place] [address] Tremor (Primary Dx); Low TSH level Social [...] Description 05/24/2025 9:45 AM EDT Office Visit [facility] CHC MED & PEDS [address] [place] [address] Nai Menendez MD [address] [place] [address] documented as of this encounter Visit Diagnoses Diagnosis Tremor- Primary Abnormal involuntary movements Low TSH level documented in this encounter Additional Health Concerns Assessment Noted Time PHQ-9 Depression Total Score: 4 02/02/20 9:37 AM EDT documented as of this encounter Care Teams Construction Estimator Relationship Specialty Start Date End Date Analy Chen MD [address] [place] [address] PCP - General Internal Medicine 02/02/24 09/24/24 Nai Menendez MD [address] [place] [address] PCP - General Internal Medicine 09/25/24 Phuong Fink Skylights AssemblerWelt Beater 12/05/24 documented as of this encounter
--- OUTSIDE RECORDS SUMMARY | 2025-02-20 13:25 | XMS_ITS | Clinical Summary ---
Author Organization 175 [facility] Address [address] [place] [address] Phone Care Team Providers Care Offal Roller Name Role Phone Nai Menendez MD Primary Care Provider [phone] Allergies No known active allergies Medications amLODIPine [...] 9:15 AM EDT Office Visit Bariatric Surgery [address] [address] Zayra Cuevas MD S/P laparoscopic hernia repair (Primary Dx); Right groin pain; Seroma due to trauma ([facility] V24) 02/04/2025 11:11 AM EDT - 02/04/2025 11:59 PM EDT Hospital Encounter [facility] Ultrasound [address] [place] [address] Right groin pain; Hx of right inguinal hernia repair Discharge Disposition: Home or Self Care 02/01/2025 Telephone Bariatric Surgery [facility] [address] [address] Zayra Cuevas MD Advice Only (PO in pain) 01/18/2025 11:13 AM EDT Anesthesia Event [facility] Main OR [address] [place] [phone] Aguilar Presley MD Sobo, Kathleen, CRNA 01/18/2025 10:30 AM EDT - 01/18/2025 1:00 PM EDT Surgery [facility] Main OR [address] [place] [phone] Zayra Cuevas MD DAVINCI REPAIR RECURRENT RIGHT INGUINAL HERNIA; WITH MESH [[id number] (CPT??)] 01/18/2025 9:00 AM EDT - 01/18/2025 4:50 PM EDT Hospital Encounter [facility] Main OR [address] [place] [phone] Zayra Cuevas MD Recurrent right inguinal hernia; Hx of bilateral inguinal hernia repair Discharge Disposition: Home or Self Care 12/20/2024 8:45 AM EST Office Visit Bariatric Surgery - [place] 175 [facility] [address] [place] [address] Zayra Cuevas MD Recurrent inguinal hernia of right side without obstruction or gangrene (Primary Dx); Inguinal pain, unspecified laterality 12/20/2024 Telephone General Surgery [facility] 175 [facility] [address] [place] [address] Yolande Avendano MA from Last [...] AM EDT Office Visit Bariatric Surgery - [place] 175 [facility] [address] [place] [address] Zayra Cuevas MD 175 [facility] 120 [place] [address] Health Maintenance Due Date Last [...] this topic Medical Devices Implanted Type Area Crew Member Device Identifier Shelf Expiration Date Model / Serial / Lot Mesh 3dmax Lght Lg 4.1x6.2 R 4.1x6.2in - Sn/A - [id number] Implanted:Qty: 1 on 01/18/2025 by Zayra Cuevas MD at [facility] Surgical Mesh Sling Implants Right: Abdomen CR BARD - DAVOL DIV 04/28/2029 [id number] / N/A / [id number] Procedures Procedure Name Priority Date/Time Associated Diagnosis Comments US ABDOMEN LIMITED STAT 02/04/2025 12 :06 PM EDT Right groin pain Hx of right inguinal hernia repair OXYGEN THERAPY, ADULT Routine 01/18/2025 1:41 PM EDT TISSUE EXAM Routine 01/18/2025 12:40 PM EDT Recurrent right inguinal hernia Hx of bilateral inguinal hernia repair TH AN ENDOTRACHEAL(NO CHARGE) Routine 01/18/2025 11:36 AM EDT OR LAP SURG REPR INITIAL INGUINAL HERNIA 01/18/2025 [...] Signed Date: 02/04/2025 12:24 ET Workstation ID: [id number] Transcribed By: Self Edit Transcribed Date: 02/04/2025 [...] Signed Date: 02/04/2025 12:24 ET Workstation ID: [id number] Transcribed By: Self Edit Transcribed Date: 02/04/2025 12:20 ET us Zayra Cuevas MD IMG US PROCEDURES Final Result * Tissue exam (01/18/2025 12:40 PM EDT) Final Diagnosis Hernia, Inguinal Canal, right-herniorrha phy: -HERNIA SAC 01/25/2025 9:09 AM [facility] Gross Description A. Inguinal Canal, right [...] tissue), one piece. TS 01/25/2025 9:09 AM [facility] Disclaimer Unless otherwise specified, all tissue is 10% NB formalin fixed and paraffin embedded. 01/25/2025 9:09 AM EDT [facility] Tissue Inguinal canal structure / Unknown 01/18/2025 12:40 PM EDT 01/18/2025 2:40 PM EDT Zayra Cuevas MD LAB PATHOLOGY ORDERABLE S Final Result [facility] [address] [place] [address], [place] [phone] * TH AN ENDOTRACHEAL(NO CHARGE) (01/18/2025 11:36 [...] GEMUSE QTc 396 ms GEMUSE P Wave [place] 58 degrees GEMUSE R [place] 6 degrees GEMUSE T [place] 42 degrees GEMUSE ECG Interpretation Normal sinus rhythm Normal ECG When compared with ECG of 23-MAY-2024 14:03, QRS axis Shifted right Confirmed by Edgar CHEW JOHN ([id number]) on 01/01/2025 8:08:21 PM GEMUSE 01/01/2025 11:2 2 AM EST 01/01/2025 8:08 PM EST us Zayra Cuevas MD ECG ORDERABLES Final R esult GEMUSE from Last 3 Months Insurance MEDICAID - [place] Care Teams Offal Roller Relationship Specialty Start Date End Date Nai Menendez MD [address] [place] [address] PCP - General Internal Medicine 12/14/24
--- OUTSIDE RECORDS SUMMARY | 2025-02-20 13:25 | XMS_ITS | Encounter Summary ---
Author Organization [employer] Address [address] [facility] [address] 7t [place] [address] Care Team Providers Care Primary Products Inspectors Name Role Phone Nai Menendez MD Primary Care Provider [phone] Encounter Details Date Type Department Care Team (Latest Contact Info) Description 02/20/2025 Travel Social History Tobacco Use Types Packs/Day [...] Description 05/24/2025 9:45 AM EDT Office Visit [facility] MED & PEDS [address] [place] [address] Nai Menendez MD 505 [place] [address] documented as of this encounter Visit Diagnoses Not on filedocumented in this encounter Additional Health Concerns Assessment Noted Time PHQ-9 Depression Total Score: 10 025 9:07 AM EST documented as of this encounter Care Teams Primary Products Inspectors Relationship Specialty Start Date End Date Nai Menendez MD [address] [place] [address] PCP - General Internal Medicine 09/25/24 Phuong Fink Golf Ball InspectorSenior Research Manager 12/05/24 documented as of this encounter
--- OUTSIDE RECORDS SUMMARY | 2025-02-20 13:25 | XMS_ITS | Encounter Summary ---
Author Organization [employer] Address 75 [facility] 7 [place] [address] Care Team Providers Care Automatic Wheel Line Operator Name Role Phone Nai Menendez MD Primary Care Provider [phone] Reason for Visit * Reason Onset Date Comments Pt1 10/10/2024 Encounter Details Date Type Department Care Team ([facility] Contact Info) Description 10/10/2024 Telephone [facility] CHC MED & PEDS [address] [place] [address] Nai Menendez MD [address] [place] [address] Pt1 Social History Tobacco Use Types Packs/Day [...] Y/N: Yes Provider name or facility name: [facility] Physical Therapy Facility Address: [address] [place] [address] [place] [address] Escort needed: Y/N: No Do you have a wheelchair: Y/N: No If yes- Manual or electric: n/a Visits: 2-3 times a month for 6 months documented in this encounter Plan of Treatment Upcoming Encounters Date Type Department Care Team ([facility] st Contact Info) Description 05/24/2025 9:45 AM EDT Office Visit [facility] CHC MED & PEDS [address] [place] [address] Nai Menendez MD [address] [place] [address] documented as of this encounter Visit Diagnoses Not on filedocumented in this encounter Additional Health Concerns Assessment Noted Time PHQ-9 Depression Total Score: 4 02/02/20 9:37 AM EDT documented as of this encounter Care Teams Automatic Wheel Line Operator Relationship Specialty Start Date End Date Nai Menendez MD [address] [place] [address] PCP - General Internal Medicine 09/25/24 Phuong Fink Netezza DeveloperAssociate Engineer 12/05/24 documented as of this encounter
--- OUTSIDE RECORDS SUMMARY | 2025-02-20 13:25 | XMS_ITS | Encounter Summary ---
Author Organization [employer] Address 75 [facility] 7t [place] [address] Care Team Providers Care Solar Applications Development Engineer Name Role Phone Nai Menendez MD Primary Care Provider [phone] Encounter Details Date Type Department Care Team (Late st Contact Info) Description 12/21/2024 Telephone [facility] MEDICINE [address] [place] [address] Nai Menendez MD [address] [place], [place] [phone] Social History Tobacco Use Types Packs/Day Years [...] 05/24/2025 9:45 AM EDT Office Visit [facility] MED & PEDS 505 [place] [address] Nai Menendez MD 505 [place] [address] documented as of this encounter Visit Diagnoses Not on filedocumented in this encounter Additional Health Concerns Assessment Noted Time PHQ-9 Depression Total Score: 4 02/02/20 9:37 AM EDT documented as of this encounter Care Teams Solar Applications Development Engineer Relationship Specialty Start Date End Date Nai Menendez MD [address] [place] [address] PCP - General Internal Medicine 09/25/24 Phuong Fink Manager StorageHighway Design Engineer 12/05/24 documented as of this encounter
--- OUTSIDE RECORDS SUMMARY | 2025-02-20 13:25 | XMS_ITS | Encounter Summary ---
Author Organization [employer] Address 75 [facility] 7 [place] [address] Care Team Providers Care Heel Builder Machine Name Role Phone Nai Menendez MD Primary Care Provider [phone] Reason for Visit * Reason Onset Date Comments pre op 12/21/2024 Encounter Details Date Type Department Care Team ([facility] Contact Info) Description 12/21/2024 Telephone [facility] CHC MED & PEDS [address] [place] [address] Nai Menendez MD [address] [place] [address] pre op Social History Tobacco Use Types [...] Yes EKG: Yes Surgeon's name: Facility name: [facility]. Procedure will be done at [facility] Surgeon's office number: [phone] Surgeon's office fax number: [phone] Contact name (person you spoke with): Kim Last office note from surgeon requested: No Send Message to Sima Ferraro and Josef Muahmmad documented in this encounter Plan of Treatment Upcoming Encounters Date Type Department Care Team ([facility] st Contact Info) Description 05/24/2025 9:45 AM EDT Office Visit [facility] MED & PEDS [address] [place] [address] Nai Menendez MD [address] [place] [address] documented as of this encounter Visit Diagnoses Not on filedocumented in this encounter Additional Health Concerns Assessment Noted Time PHQ-9 Depression Total Score: 4 02/02/20 24 9:37 AM EDT documented as of this encounter Care Teams Heel Builder Machine Relationship Specialty Start Date End Date Nai Menendez MD [address] [place] [address] PCP - General Internal Medicine 09/25/24 Phuong Fink Gem Stone CutterColor Grinder 12/05/24 documented as of this encounter
--- OUTSIDE RECORDS SUMMARY | 2025-02-20 13:25 | XMS_ITS | Clinical Summary ---
Author Organization [facility] Address [address] [place] [address] Care Team Providers Care Director Content Marketing Name Role Phone Unavailable Primary Care Provider [...] 01/23/2017 Imm-Zoster, Recombinant (1 of 2) 01/23/2022 [id number] ( - season) 2024 021, 03/06/2021 Imm-Influenza (#1) 2024 Alcohol and Drug Screen 11/01/2024 Depression Annual Screen 11/01/2024 Insurance COVID19 [facility] UNINSURED [facility]ING [place] [address]
--- OUTSIDE RECORDS SUMMARY | 2025-02-20 13:25 | XMS_ITS | Encounter Summary ---
Author Organization [employer] Address 75 [facility] 7t [place] [address] Care Team Providers Care Travel Clerk Name Role Phone Nai Menendez MD Primary Care Provider [phone] Encounter Details Date Type Department Care Team (Late st Contact Info) Description 01/02/2025 Orders Only [facility] [address] [place] [address] ProviderDarrian MD Social History Tobacco Use Types [...] 9:45 AM EDT Office Visit [facility] MED & PEDS [address] [place] [address] Nai Menendez MD [address] [place] [address] documented as of this encounter Procedures Procedure [...] as of this encounter Care Teams Travel Clerk Relationship Specialty Start Date End Date Nai Menendez MD [address] [place] [address] PCP - General Internal Medicine 09/25/24 Phuong Fink Lap WelderLinux Support Engineer 12/05/24 documented as of this encounter
--- OUTSIDE RECORDS SUMMARY | 2025-02-20 13:25 | XMS_ITS | Encounter Summary ---
Author Organization [employer] Address 75 [facility] [address], [place] [address] Care Team Providers Care Oracle R12 Developer Name Role Phone Analy Chen MD Primary Care Provider [phone] Nai Menendez MD Primary Care Provider [phone] Reason for Referral * Consultation (Routine) - Closed Specialty Diagnoses / Procedures Referred By Contac t Referred To Contact Cardiology Diagnoses Primary hypertension Other chest pain Nai Menendez MD [address] [place] [address] Phone: tel: fax: Stephan Batista MD [address] [place] [address] Phone: tel: fax: Referral ID Status Reason Start Date Expiration Date V isits Requested Visits Authorized [id number] Closed Specialty Services Required 04/17/2024 04/17/2025 1 1 Encounter Details Date Type Department Care Team (Late st Contact Info) Description 04/17/2024 Orders Only [facility] MED & PEDS [address] [place] [phone] Nai Menendez MD [address] [place] [address] Primary hypertension (Primary Dx); Other chest pain [...] Description 05/24/2025 9:45 AM EDT Office Visit [facility] CHC MED & PEDS [address] [place] [address] Nai Menendez MD 505 [place] [address] Scheduled Referrals Name Type Priority Associated Diagnoses [...] documented as of this encounter Care Teams Oracle R12 Developer Relationship Specialty Start Date End Date Analy Chen MD 505 [place] [address] PCP - General Internal Medicine 02/02/24 09/24/24 Nai Menendez MD 505 [place] [address] PCP - General Internal Medicine 09/25/24 Phuong Fink Investment Fund ManagerChair 12/05/24 documented as of this encounter
--- OUTSIDE RECORDS SUMMARY | 2025-02-20 13:25 | XMS_ITS | Encounter Summary ---
Author Organization [employer] Address 75 [facility] 7 [place] [address] Care Team Providers Care E Merchant Name Role Phone Nai Menendez MD Primary Care Provider [phone] Reason for Visit * Reason Onset Date Comments Walk-In 02/20/2025 Encounter Details Date Type Department Care Team ([facility] Contact Info) Description 02/20/2025 Telephone [facility] CHC MED & PEDS [address] [place] [address] Nai Menendez MD [address] [place] [address] Walk-In Social History Tobacco Use Types Packs/Day Years [...] your housing situation today? [facility] 02/05/[address] you li [...] encounter Miscellaneous Notes * Telephone Encounter - Pamela Redmond RN - 02/20/2025 9:49 AM EDT Same day appointment made for 10:40 in [facility]. * Telephone Encounter - Rosy Bradley - 02/20/2025 9:30 AM EDT Right lower abdominal pain stated had surgery 1 month ago in same area, pt sitting in waiting room documented in this encounter Plan of Treatment Upcoming Encounters Date Type Department Care Team (Late st Contact Info) Description 05/24/2025 9:45 AM EDT Office Visit [facility] MED & PEDS [address] [place] [address] Nai Menendez MD [address] [place] [address] documented as of this encounter Visit Diagnoses Not on filedocumented in this encounter Additional Health Concerns Assessment Noted Time PHQ-9 Depression Total Score: 10 025 9:07 AM EST documented as of this encounter Care Teams E Merchant Relationship Specialty Start Date End Date Nai Menendez MD [address] [place] [address] PCP - General Internal Medicine 09/25/24 Phuong Fink Web Site ManagerSupervisor Cured Meats 12/05/24 documented as of this encounter
--- OUTSIDE RECORDS SUMMARY | 2025-02-20 13:25 | XMS_ITS | Encounter Summary ---
Author Organization [employer] Address 75 [facility] 7t [place] [address] Care Team Providers Care Scowman Name Role Phone Analy Chen MD Primary Care Provider [phone] Nai Menendez MD Primary Care Provider [phone] Reason for Visit * Reason Onset Date Comments ER Follow-up 02/11/2024 Encounter Details Date Type Department Care Team (Late st Contact Info) Description 02/11/2024 Telephone [facility] MEDICINE [address] [place] [address] Analy Chen MD [address] [place], [place] [phone] ER Follow-up Social History Tobacco Use Types [...] ED visit on : Date: 02/08 Hospital: [facility] Seen for: Skin Lump had surgery on 01/26 for hernia and still had pain with a lump Patient advised will forward to team nurse for follow up documented in this encounter Plan of Treatment Upcoming Encounters Date Type Department Care Team (Late st Contact Info) Description 05/24/2025 9:45 AM EDT Office Visit [facility] CHC MED & PEDS [address] [place] [address] Nai Menendez MD [address] [place] [address] documented as of this encounter Visit Diagnoses Not on filedocumented in this encounter Additional Health Concerns Assessment Noted Time PHQ-9 Depression Total Score: 4 02/02/20 9:37 AM EDT documented as of this encounter Care Teams Scowman Relationship Specialty Start Date End Date Analy Chen MD [address] [place] [address] PCP - General Internal Medicine 02/02/24 09/24/24 Nai Menendez MD [address] [place] [address] PCP - General Internal Medicine 09/25/24 Phuong Fink Molecular TechnologistClass 1 Owner Operator 12/05/24 documented as of this encounter
--- OUTSIDE RECORDS SUMMARY | 2025-02-20 13:25 | XMS_ITS | Encounter Summary ---
Author Organization [employer] Address 75 [facility] 7 [place] [address] Care Team Providers Care Golf Ball Winder Name Role Phone Nai Menendez MD Primary Care Provider [phone] Reason for Visit * Reason Onset Date Comments Medication Question 12/01/2024 Encounter Details Date Type Department Care Team ([facility] st Contact Info) Description 12/01/2024 Telephone [facility] MEDICINE [address] [place] [address] Nai Menendez MD [address] [place], [place] [phone] Medication Question Social History Tobacco Use Types [...] has questions regarding medication prescribed on 11/30/24. Cnc Service Engineer explained cetirizine 10mg for allergies/post nasal drip, [...] [facility] MED & PEDS [address] [place] [address] Nai Menendez MD [address] [place] [address] documented as of this encounter Visit Diagnoses Not on filedocumented in this encounter Additional Health Concerns Assessment Noted Time PHQ-9 Depression Total Score: 4 02/02/20 24 9:37 AM EDT documented as of this encounter Care Teams Golf Ball Winder Relationship Specialty Start Date End Date Nai Menendez MD [address] [place] [address] PCP - General Internal Medicine 09/25/24 Phuong Fink Hospital LiaisonSupervisor Train Operations 12/05/24 documented as of this encounter
--- OUTSIDE RECORDS SUMMARY | 2025-02-20 13:25 | XMS_ITS | Encounter Summary ---
Author Organization [employer] Address 75 [facility] 7t [place] [address] Care Team Providers Care Manager Oracle Retail Name Role Phone Analy Chen MD Primary Care Provider [phone] Nai Menendez MD Primary Care Provider [phone] Reason for Visit * Reason Onset Date Comments Call Back Request 06/09/2024 Encounter Details Date Type Department Care Team (Late st Contact Info) Description 06/09/2024 Telephone [facility] MEDICINE [address] [place] [address] Analy Chen MD [address] [place] [address] Call Back Request Social History Tobacco Use [...] Description 05/24/2025 9:45 AM EDT Office Visit [facility] MED & PEDS [address] [place] [address] Nai Menendez MD 505 [place] [address] documented as of this encounter Visit Diagnoses Not on filedocumented in this encounter Additional Health Concerns Assessment Noted Time PHQ-9 Depression Total Score: 4 02/02/20 9:37 AM EDT documented as of this encounter Care Teams Manager Oracle Retail Relationship Specialty Start Date End Date Analy Chen MD [address] [place] [address] PCP - General Internal Medicine 02/02/24 09/24/24 Nai Menendez MD [address] [place] [address] PCP - General Internal Medicine 09/25/24 Phuong Fink [employer] Physical Education TeacherRehab Director Occupational Therapist 12/05/24 documented as of this encounter
--- OUTSIDE RECORDS SUMMARY | 2025-02-20 13:25 | XMS_ITS | Encounter Summary ---
Author Organization [employer] Address [address] [facility] [address] [place] [address] Care Team Providers Care Shirt Folder Name Role Phone Analy Chen MD Primary Care Provider [phone] Nai Menendez MD Primary Care Provider [phone] Reason for Visit * Reason Onset Date Comments Nurse Triage 09/12/2024 Encounter Details Date Type Department Care Team (Late st Contact Info) Description 09/12/2024 Telephone [facility] [address] [place] [address] Analy Chen MD [address] [place] [address] Nurse Triage Social History Tobacco Use Types [...] 05/24/2025 9:45 AM EDT Office Visit [facility] [address] [place] [address] Nai Menendez MD [address] [place] [address] documented as of this encounter Visit Diagnoses Not on filedocumented in this encounter Additional Health Concerns Assessment Noted Time PHQ-9 Depression Total Score: 4 02/02/20 9:37 AM EDT documented as of this encounter Care Teams Shirt Folder Relationship Specialty Start Date End Date Analy Chen MD [address] [place] [address] PCP - General Internal Medicine 02/02/24 09/24/24 Nai Menendez MD [address] [place] [address] PCP - General Internal Medicine 09/25/24 Phuong Fink Technical FellowParish Nurse 12/05/24 documented as of this encounter
--- OUTSIDE RECORDS SUMMARY | 2025-02-20 13:25 | XMS_ITS | Clinical Summary ---
Author Organization [employer] Address [address] [facility] [address] [place] [address] Care Team Providers Care Asphalt Mixing Machine Operator Name Role Phone Nai Menendez MD Primary Care Provider [phone] Allergies No known active allergies Medications * [...] ium Nitrate 1.1-5 % pasteIndication s:Dental caries [place] teeth for 2 minutes, morning and night. [...] minutes following use. 473 mL 024 Active lisinopril (Prinivil) 20 MG tabletIndicatio [...] per day. 30 tablet 025 2025 Active acetaminophen (Tylenol 8 Hour) 650 MG [...] mouth 3 times daily. 90 capsule 3 025 Active amLODIPine (Norvasc) 5 MG tabletIndicatio ns:Primary hypertension Take 1 tablet (5 mg) by mouth Once per day. 30 tablet 025 2025 Active mirtazapine (Remeron) 7.5 MG tabletIndicatio ns:Anxiety,Adju stment insomnia TAKE 1 TABLET(7.5 MG) BY MOUTH AT BEDTIME 30 tablet 1 Active tamsulosin (Flomax) 0.4 MG 24 hr capsuleIndicati ons:Dysuria TAKE 2 CAPSULES(0.8 MG) BY MOUTH DAILY 30 capsule 11 Active omeprazole OTC (PriLOSEC OTC) 20 MG EC tablet Take 20 mg by mouth. Active meloxicam (Mobic) 15 MG tabletIndicatio ns:Subcutaneous nodule of abdominal wall Take 1 tablet (15 mg) by mouth Once per day. 30 tablet 1 025 2025 Active traMADol (Ultram) 50 MG tabletIndicatio ns:Subcutaneous nodule of abdominal wall Take 1 tablet (50 mg) by mouth every 6 (six) hours if needed for severe pain for up to 5 days. 15 tablet 025 2024 Active Omeprazole 20 MG tablet delayed-release Indications:Gas troesophageal reflux disease without esophagitis Take 1 tablet (20 mg) by mouth Once per day. 30 tablet 3 Active doxycycline (Vibra-Tabs) 100 MG tabletIndicatio ns:Subcutaneous nodule of abdominal wall Take 1 tablet (100 mg) by mouth 2 times daily for 10 days. Take with a full glass of water and do not lie down for at least 30 minutes after. 20 tablet 025 2024 Active hydrOXYzine pamoate (Vistaril) 50 MG capsuleIndicati ons:Anxiety,Oth er insomnia 1 to 2 capsules at bedtime 60 capsule Active tadalafil (Cialis) 5 MG tabletIndicatio ns:Erectile disorder,Dysuri a Take 1 tablet (5 mg) by mouth Once per day. 30 tablet 3 024 2024 Discontinued(T herapy completed) Omeprazole 20 MG tablet delayed-release Indications:Gas troesophageal reflux disease without esophagitis Take 1 tablet (20 mg) by mouth Once per day. 30 tablet 3 025 2024 Discontinued(R eorder (will not trigger [...] organization. Date Type Department Care Team Description 02/20/2025 10:40 AM EDT Office Visit [facility] [address] [place] [address] Nai Menendez MD Subcutaneous nodule of abdominal wall (Primary Dx); Gastroesophageal reflux disease without esophagitis; Anxiety; Other insomnia 02/20/2025 Travel 02/20/2025 Telephone [facility] [address] [place] [address] Nai Menendez MD Walk-In 02/12/2025 9:00 AM EDT Office Visit [facility] [address] [place] [address] Nai Menendez MD Polydipsia (Primary Dx); Unilateral inguinal hernia without obstruction or gangrene, recurrence not specified; Primary hypertension 02/12/2025 Travel 02/06/2025 Patient Outreach [facility] [address] [place] [phone] Nai Menendez MD Care Coordination (CHW outreach for SDOH food needs-referral completed /) 02/06/2025 Travel 02/05/2025 Patient Outreach [facility] [address] [place] [phone] Nai Menendez MD Pre-visit Planning (SDOH screening positive and Tobacco screening negative) 02/05/2025 Patient Outreach [facility] [address] [place] [address] Nai Menendez MD Pre-visit Planning (Pre visit planning LVM ) 02/01/2025 Telephone [facility] [address] [place] [address] Nai Menendez MD Nurse Triage 01/12/2025 Population Health Risk Score [facility] ([facility] Department [address] [place] [phone] Provider, Population Health Generic 01/12/2025 Telephone [facility] [address] [place] [address] Analy Chen MD FAX: Pre-op 01/11/2025 1:30 PM EDT Office Visit [facility] [address] [place] [address] Analy Chen MD Preop examination (Primary Dx); Primary hypertension; Adjustment disorder with mixed anxiety and depressed mood 01/11/2025 Travel 01/02/2025 [facility] Information Management [address] [place] [address] ProviderDarrian MD 01/02/2025 Refill [facility] [address] [place] [address] Nai Menendez MD Dysuria 12/27/2024 Travel 12/27/2024 Refill [facility] [address] [place] [address] Analy Chen MD Anxiety; Adjustment insomnia 12/21/2024 Telephone [facility] [address] [place] [address] Nai Menendez MD pre op 12/21/2024 Telephone [facility] [address] [place] [address] Nai Menendez MD 12/20/2024 Telephone [facility] [address] [place] [address] Nai Menendez MD Results 12/18/2024 Travel 12/12/2024 10:45 AM EST Office Visit [facility] [address] [place] [address] Nai Menendez MD Left hip pain (Primary Dx); Primary hypertension; Bulge in groin area; Severe right groin pain; Dysuria 12/11/2024 Travel 12/11/[address] [address] Nai Menendez MD Nurse Triage 12/05/2024 Telephone [facility] [address] [place] [address] Nai Menendez MD Care Coordination ([facility] Teacher Advisor) 12/01/[address] [address] Nai Menendez MD Medication Question 11/30/2024 1:45 PM EST Office Visit [facility] [address] [place] [address] Nai Menendez MD Severe right groin pain (Primary Dx); Primary hypertension; Nasal congestion; Gastroesophageal reflux disease without esophagitis; Anxiety; Adjustment insomnia; Left hip pain; Right upper quadrant pain 11/30/2024 Travel 11/29/2024 Telephone [facility] [address] [place] [address] Nai Menendez MD CHART PREP 11/24/2024 Travel 11/23/2024 Telephone [facility] [address] [place] [address] Nai Menendez MD recall appt (Pt needs [...] Sign Reading Time Taken Comments Blood Pressure 133/91 02/20/2025 10:13 AM EDT Pulse 76 02/20/2025 10:13 AM EDT Temperature 36.6 ??C (97.9 ??F) 02/20/2025 10:13 AM E DT Respiratory Rate 20 02/20/2025 10:13 AM EDT Oxygen Saturation 97% 02/20/2025 10:13 AM EDT Inhaled Oxygen Concentration - - Weight 70.8 kg (156 lb) 02/20/2025 10:13 AM EDT Height 167.6 cm (5' 6 ) 02/20/2025 10:13 AM EDT Body Mass Index 25.18 02/20/2025 10:13 AM EDT Plan of Treatment Upcoming Encounters Date Type Department Care Team (Late st Contact Info) Description 05/24/2025 9:45 AM EDT Office Visit [facility] [address] [place] [address] Nai Menendez MD [address] [place] [address] Health Maintenance Due Date Last Done Comments [...] 03/15/2024 Dental X-Ray: Bitewings 03/16/2025 03/15/20, 02/09/2024 COVID-19 Vaccine (3 - 2023-2 5 season) 2025 04/03/2021, 03/06/2021 Postponed from 07/02/2024 (Patient Refused) Zoster Vaccines (1 of 2) 09/25/2025 Pos tponed from 01/23/2022 (Patient Refused) Depression Screening 12/25/2025 12/25/2024, 12/25/2024 SDOH Screening 02/05/2026 02/05/2025 Alcohol/Substance Use Screening 02/12/2026 02/12/2025 Diabetes: Hemoglobin A1C 02/12/2026 025, 09/25/2024 Tobacco Screening 02/20/2026 02/20/2025 Colorectal Cancer Screening 02/20/2027 FIT DNA/Cologuard 02/20/2027 [...] 9:30 AM EDT Periodontal disease Defective dental muslim Symptomatic irreversible pulpitis PROPHYLAXIS - ADULT Routine [...] Media Lot # [id number] Lot# Expiration Date , Blood 02/12/2025 9:43 AM EDT Nai Menendez MD POINT OF CARE TEST ENTER/ED IT ORDERABLES Final Result * POCT Glucose (02/12/2025 9:43 AM EDT) Glucose Blood, POC 115 60 - 200 mg/dL QC Media Lot # [id number] Lot# Expiration Date [id number] Comment:random Blood Capillary blood specimen / Unknown 02/12/2025 9:43 AM EDT us Nai Menendez MD POINT OF CARE TEST ENTER/ED IT ORDERABLES Final Result * Urinalysis Complete (01/11/2025 2:30 PM EDT) Color Urine Yellow [facility] Appearance Urine Clear [facility] PH 7.5 5.0 - 9.0 [facility] Glucose Urine UA Negative Negative mg/dL [facility] Urine Blood Negative Negative [facility] Specific [place] - Urine 1.020 1.005 - 1.025 [facility] Urine Protein Negative Neg-Trace mg/dL [facility] Urine Ketones Negative Negative mg/dL [facility] Nitrite Urine Negative Negative [facility] Leukocyte Esterase Urine Negative Negative [facility] RBC Urine 0-2 0 - 2 /HPF [facility] Urine WBC 0-5 0 - 5 /HPF [facility] Urine Squamous Epithelial Cell 0-2 0 - 2 /HPF [facility] Urine Bacteria None Seen None Seen [facility] Hyaline Casts, Urine 0-2 0 - 2 /LPF [facility] Urine (Urine, Random) 01/11/2025 2:30 PM EDT 01/11/2025 5:25 PM EDT us Analy Chen MD LAB URINE ORDERABLES Final Re sult [facility] [address] [place] [phone] * CBC auto differential (01/11/2025 2:10 PM EDT) White Blood Count 6.0 4.8 - 10.8 X10*3/uL [facility] Red Blood Count 4.69 4.60 - 5.80 X10*6/uL [facility] Hemoglobin 14.2 14.0 - 18.0 g/dl [facility] Hematocrit 42.7 42.0 - 52.0 % [facility] Mean Corpuscular Volume 91.0 80.0 - 98.0 fL [facility] Mean Corpuscular Hemoglobin 30.3 27.0 - 33.0 pg [facility] Mean Corpuscular HGB Conc 33.3 31.0 - 36.0 g/dl [facility] Red Cell Distribution Width 12.8 11.0 - 16.0 % [facility] Platelet Count 239 160 - 400 X10*3/uL [facility] Mean Platelet Volume 10.4 9.4 - 12.4 fL [facility] Neutrophils Percent Auto 58.1 45 - 73 % [facility] Imm Gran Pct Auto 0.3 0.0 - 0.4 % [facility] Lymphocytes Percent Auto 28.3 20 - 40 % [facility] Monocytes Percent Auto 10.8 2 - 11 % [facility] Eosinophils Percent Auto 1.7 0 - 4 % [facility] Basophils Percent Auto 0.8 0 - 2 % [facility] NRBC Pct Auto 0.0 0.0 - 0.2 /100WBC [facility] Neutrophils Absolute Auto 3.5 2.0 - 8.3 x10*3/uL [facility] Imm Gran Abs Auto 0.02 0.00 - 0.03 X10*3/uL [facility] Lymphocytes Absolute Auto 1.7 1.2 - 4.9 X10*3/uL [facility] Monocytes Absolute Auto 0.7 0.1 - 1.2 X10*3/uL [facility] Eosinophils Absolute Auto 0.1 0.0 - 0.4 X10*3/uL [facility] Basophils Absolute Auto 0.1 0.0 - 0.2 X10*3/uL [facility] NRBC Abs Auto 0.000 0.0 - 0.012 X10*3/uL [facility] Blood Venous blood specimen / Unknown 01/11/2025 2:10 PM EDT 01/11/2025 5:37 PM EDT us Analy Chen MD LAB BLOOD ORDERABLES Final Re sult Performing Organization Address [facility]/ZIP Co de Phone Number [facility] [address] [place] [phone] * Prothrombin Time-INR (01/11/2025 2:10 PM EDT) Prothrombin Time 12.4 10.9 - 12.4 SEC [facility] INTERNATIONAL NORM RATIO 1.1 0.9 - 1.1 [facility] Comment:INTERNATIONAL NORMAL IZED RATIO (INR) REFERENCE [...] ORDERABLES Final Re sult Performing Organization Address [facility] Co de Phone Number [facility] [address] [place] [phone] * (ABNORMAL) Hepatic Function Panel (01/11/2025 2:10 PM EDT) Bilirubin, Total 1.1(H) 0.0 - 1.0 mg/dL [facility] Bilirubin, Direct 0.3 0.0 - 0.5 mg/dL [facility] Aspartate Amino Transferase 23 5 - 37 U/L [facility] Alanine Aminotransferase 45(H) 0 - 40 U/L [facility] Total Protein 7.4 6.5 - 8.0 g/dL [facility] Albumin Level 4.0 3.5 - 5.0 g/dL [facility] Alkaline Phosphatase 48 39 - 117 U/L [facility] Blood Venous blood specimen / Unknown 01/11/2025 2:10 PM EDT 01/11/2025 5:37 PM EDT us Analy Chen MD LAB BLOOD ORDERABLES Final Re sult Performing Organization Address [facility] Co de Phone Number [facility] [address] [place] [phone] [phone] * (ABNORMAL) Basic Metabolic Panel (01/11/2025 2:10 PM EDT) Sodium 143 135 - 145 mmol/L [facility] Potassium 4.2 3.3 - 5.1 mmol/L [facility] Chloride 107 96 - 108 mmol/L [facility] Carbon Dioxide 28 22 - 29 mmol/L [facility] Anion Gap 12 12 - 20 [facility] Urea Nitrogen (BUN) 19(H) 9 - 16 mg/dL [facility] Creatinine, Serum 0.89 0.5 - 1.4 mg/dL [facility] Estimated Glomerular Filt Rate >60 [facility] Comment:Chronic Kidney Disea se: Estimated GFR < 60 mL/min/1.51o4Syheun Kidney Disease: Estimated GFR < 15 mL/min/1.73m2 Glucose 83 60 - 115 mg/dL [facility] Calcium 9.4 8.4 - 10.2 mg/dL [facility] Blood Venous blood specimen / Unknown 01/11/2025 2:10 PM EDT 01/11/2025 5:37 PM EDT us Analy Chen MD LAB BLOOD ORDERABLES Final Re sult Performing Organization Address [facility]/ZIP Co de Phone Number [facility] [address] [place] [phone] * ECG 12 lead (01/11/2025 1:48 [...] EST ? [facility] ?[address] [facility] [address] ? [place] [address] ? Ultrasound Report ? Signed ? Patient: DanaeOsei ?MR#: [id number] ?? 9 ? : 1970 ?Acct:[id number] ? Age/Sex: 54 / M ?ADM Date: 12/15/24 ? Loc: HO.HMGCX ? Attending Dr: Nai Menendez MD ? Ordering Physician: Nai Menendez MD ?? Date of Service: 12/15/24 ?? Procedure(s): US abdomen complete ?? Accession Number(s): [id number] ? cc: Nai Menendez MD ? CLINICAL [...] OV> ?12/16/24838 ? DD/ 7 ? TD/TT: 12/16/24837 ? Well Site Drilling Engineer: ? Procedure Note Donotdanielter, Image - 12/16/2024 [facility] [place] [facility] [address] [place] [address] [place] [address] Ultrasound Report Signed Patient: Osei Fink#: [id number] 9 : 1970Acct:[id number] Age/Sex: 54 / MADM Date: 12/15/24 Loc: .HMGCX Attending Dr: Nai Menendez MD Ordering Physician: Nai Menendez MD Date of Service: 12/15/24 Procedure(s): US abdomen complete Accession Number(s): [id number] cc: Nai Menendez MD CLINICAL HISTORY: Right [...] signed by Emiliano Roberts MD in OV> 12/16/24838 DD/ 7 TD/TT: 12/16/24837 Well Site Drilling Engineer: Nai Menendez MD [facility] US PROCEDURES Edited Re sult - Final * Cologuard?? colon cancer screening (02/21/2024 7:45 AM EDT) Cologuard Result Negative Negative 03/01/20 3:29 AM EDT [facility] (CLIA #:[id number]) Comment: NEGATIVE TEST RESULT. A negative Cologuard [...] Tomas et al, N Engl J Med 2014;370(14):1286- 1297) The normal value (reference range) for this assay is negative. COLOGUARD RE-SCREENING RECOMMENDATION: Periodic colorectal cancer screening is an important part of preventive healthcare for asymptomatic individuals at average risk for colorectal cancer. ??Following a negative Cologuard result, the [place] Cancer Society and U.S. Multi-Society Task Force screening guidelines recommend a Cologuard re-screening interval of 3 years. References: [place] [employer] Guideline for Colorectal Cancer Screening: https://www.cancer.org/cancer/lqvfe-xxhhfq-nerlre/rpeylttzo-ntlrwalwt-ebdhtdk/ac s-rec ommendations.html.; Peña DK, Ra CR, Alisa BakerK, Colorectal Cancer Screening: Recommendations for Physicians and Patients from the U.S. Multi-Society Task Force on Colorectal Cancer Screening , Am J Gastroenterology 2017; 112:6124-7387. TEST DESCRIPTION: Composite algorithmic analysis of stool [...] (Lela Jones al, N Engl J Med 2014;370(14):0309-5073.) Cologuard may produce a false negative or false positive result (no colorectal cancer or precancerous polyp present at colonoscopy follow up). A negative Cologuard test result does not guarantee the absence of CRC or advanced adenoma (pre-cancer). The current Cologuard screening interval is every 3 years. ([place] [employer] Society and U.S. Multi-Society Task Force). Cologuard performance data in a 10,000 patient pivotal study using colonoscopy as the reference method can be accessed at the following location: www.[employer].TiVo/results. Additional description of the Cologuard test process, warnings and precautions can be found at www.[email or web address] [email or web address].[email or web address]. Stool specimen (specimen) 02/21/2024 7:45 AM EDT 02/23/2024 10:44 AM EDT Analy Chen MD LAB MOLECULAR DIAGNOSTICS ORD ERABLES Final Result [facility] (CLIA #:[id number]) [place] [address], * Hepatitis A,B,C Profile (02/02/2024 10:43 AM EDT) Hepatitis A IgM Nonreactive Nonreactive [facility] Comment:IgM antibodies to QUINTANILLA V not detected; does not exclude earlyacute or recovered HAV infection. ~Hepatitis B Surface Antibody NONREACTIVE Nonreactive [facility] Comment:Nonreactive: < 8.00 mIU/mL Hepatitis B Core Antibody Nonreactive Nonreactive [facility] Hepatitis C Antibody Nonreactive Nonreactive [facility] Comment:Antibodies to HCV no t detected; does not exclude early acuteHCV infection. Hepatitis B Surface Ag Negative Negative [facility] Blood Venous blood specimen / Unknown 02/02/2024 10:43 AM EDT 02/02/2024 2:10 PM EDT us Analy Chen MD LAB BLOOD ORDERABLES Final Re sult [facility] [address] [place] [phone] * HIV-1/2 Antigen and Antibodies, Fourth Generation, with Reflexes (02/02/2024 10:43 AM EDT) HIV AB/AG Nonreactive Nonreactive [facility] Comment:HIV-1 p24 Ag and/or HIV-1/HIV-2 Ab not detected.A test result that is nonreactive does not exclude thepossibility of exposure to or infection with HIV-1 and/orHIV-2. Nonreactive results in this assay for individualswith prior exposure to HIV-1 and/or HIV-2 may be due toantigen and antibody levels that are below the limit ofdetection of this assay.The [employer] HIV Ag/Ab Combo assay result andsupplemental assay results should be interpreted inconjunction with the patient's clinical presentation,history and other laboratory results. If the results areinconsistent with clinical evidence, additional testing issuggested to confirm the result. Blood Venous blood specimen / Unknown 02/02/2024 10:43 AM EDT 02/02/2024 2:10 PM EDT us Analy Chen MD LAB BLOOD ORDERABLES Final Re sult Performing Organization Address [facility] Co de Phone Number [facility] [address] [place] [phone] * (ABNORMAL) Lipid Panel, Standard (02/02/2024 10:43 AM EDT) Triglycerides 143 <150 mg/dL [facility] Comment:Desirable Triglyceri de: less than 150 mg/dLBorderline High Triglyceride 150-199 mg/dLHigh Triglyceride: 200-499 mg/dLVery High Triglyceride: greater than or equal to 5OO mg/dL Cholesterol 174 <200 mg/dL [facility] Comment:Desirable Cholestero l: less than 200 mg/dLBorderline High Cholesterol: 200-239 mg/dLHigh Cholesterol: greater than 239 mg/dL LDL Cholesterol Calculated 105(H) <100 mg/dL [facility] Comment:Desirable LDL: less than 100 mg/dLNear Optimal/Above Optimal LDL: 110- 129 mg/dLBorderline High LDL: 130-159 mg/dLHigh LDL: 160-189 mg/dLVery High LDL: greater than or equal to 190 mg/dL HDL Cholesterol 41 >40 mg/dL [facility] Comment:Desirable HDL: great er than 40 mg/dL Note: This HDL assay may give artificially low results in patients with liver disease. Blood Venous blood specimen / Unknown 02/02/2024 10:43 AM EDT 02/02/2024 2:10 PM EDT us Analy Chen MD LAB BLOOD ORDERABLES Final Re sult Performing Organization Address [facility]/ZIP Co de Phone Number [facility] [address] [place] [phone] from Last 3 Months or Most Recently Relevant to Health Maintenance Insurance [facility] C[employer]ICA[employer] STAND ADULT Care Teams Asphalt Mixing Machine Operator Relationship Specialty Start Date End Date Nai Menendez MD [address] [place] [phone] PCP - General Internal Medicine 09/25/24 Phuong Fink Hazardous Materials DriverHelper Driver 12/05/24
--- OUTSIDE RECORDS SUMMARY | 2025-02-20 13:25 | XMS_ITS | Encounter Summary ---
Author Organization [employer] Address 75 [facility] 7t [place] [address] Care Team Providers Care Flexo Operator Name Role Phone Analy Chen MD Primary Care Provider [phone] Nai Menendez MD Primary Care Provider [phone] Reason for Visit * Reason Onset Date Comments Nurse Triage 02/09/2024 Encounter Details Date Type Department Care Team (Late st Contact Info) Description 02/09/2024 Telephone [facility] [address] [place] [address] Analy Chen MD [address] [place] [address] Nurse Triage Social History Tobacco Use Types [...] of previous surgery. No apts available in [facility] today or tomorrow. Pt is advised to come [facility] today for provider to see Pt and [...] [facility] [address] [place] [address] Nai Menendez MD [address] [place] [address] documented as of this encounter Visit Diagnoses Not on filedocumented in this encounter Additional Health Concerns Assessment Noted Time PHQ-9 Depression Total Score: 4 02/02/20 24 9:37 AM EDT documented as of this encounter Care Teams Flexo Operator Relationship Specialty Start Date End Date Analy Chen MD [address] [place] [address] PCP - General Internal Medicine 02/02/24 09/24/24 Nai Menendez MD [address] [place] [address] PCP - General Internal Medicine 09/25/24 Phuong Fink Cigarette Package ExaminerCalender Worker Helper 12/05/24 documented as of this encounter
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
[2025-02-20 15:02] LABS: Free T4 (Free Thyroxine) 0.98 ng/dL (0.71-1.85); Thyroid Stimulating Hormone 0.22 uIU/mL (0.32-4.0)
[2025-02-21 04:29] LABS: Triiodothyronine T3 Total 104 ng/dL (76-181)
== END 2025-02-20 11:11 | disposition home or self-care (01) ==
LOC: HO.CHCLDS 11:10
PROVIDERS: Visit Provider Student in an Organized Health Care Education/Training Program
DX: E05.90 Thyrotoxicosis, unspecified without thyrotoxic crisis or storm (principal)
CPT/HCPCS: 36415; 84439; 84443; 84480

== ENCOUNTER 2025-02-21 13:56 | Outpatient (REF) | payer MEDICAID, SELFPAY ==
--- NOTE | ~2025-02-21 | US_ITS ---
CLINICAL HISTORY: SUBCUTANEOUS NODUEL OF ABD WALL US pelvis inguinal canal on the right with color Doppler Comparison: None Findings: Right inguinal lymph node measuring 1.2 x 0.7 x 1.2 cm has cortical thickening without cortical disruption central flow with central fatty hilum. This is probably reactive. Cystic area without flow superior to the inguinal canal measuring 7.1 x 2.9 x 4.3 cm is indeterminate. Impression: 1. Reactive right inguinal lymph node can be followed up until resolution. 2. Slightly complex avascular cystic lesion right inguinal canal as described is indeterminate This document has been electronically signed by: Obinna Dave MD on 02/23/2025 09:44:51
--- OUTSIDE RECORDS SUMMARY | 2025-02-21 16:44 | XMS_ITS | Encounter Summary ---
Author Organization [employer] Address 75 [facility] 7t [place] [address] Care Team Providers Care Store Administrative Assistant Name Role Phone Nai Menendez MD Primary Care Provider [phone] Encounter Details Date Type Department Care Team (Late st Contact Info) Description 12/21/2024 Telephone [facility] MEDICINE [address] [place] [address] Nai Menendez MD [address] [place], [place] [phone] Social History Tobacco Use Types Packs/Day Years [...] 05/24/2025 9:45 AM EDT Office Visit [facility] MED & PEDS [address] [place] [address] Nai Menendez MD [address] [place] [address] documented as of this encounter Visit Diagnoses Not on filedocumented in this encounter Additional Health Concerns Assessment Noted Time PHQ-9 Depression Total Score: 4 02/02/20 9:37 AM EDT documented as of this encounter Care Teams Store Administrative Assistant Relationship Specialty Start Date End Date Nai Menendez MD [address] [place] [address] PCP - General Internal Medicine 09/25/24 Phuong Fink TraderHydrochloric Area Supervisor 12/05/24 documented as of this encounter
--- OUTSIDE RECORDS SUMMARY | 2025-02-21 16:44 | XMS_ITS | Encounter Summary ---
Author Organization [employer] Address [address] [facility] 7t [place] [address] Care Team Providers Care Oral Surgery Assistant Name Role Phone Nai Menendez MD Primary Care Provider [phone] Encounter Details Date Type Department Care Team (Late st Contact Info) Description 01/02/2025 Orders Only [facility] [address] [place] [address] ProviderDarrian MD Social History Tobacco Use Types [...] AM EDT Office Visit [facility] MED & PEDS [address] [place] [address] Nai Menendez MD [address] [place] [address] documented as of this encounter Procedures Procedure [...] documented as of this encounter Care Teams Oral Surgery Assistant Relationship Specialty Start Date End Date Nai Menendez MD [address] [place] [address] PCP - General Internal Medicine 09/25/24 Phuong Fink Malted Milk MasherAudio Visual Secretary 12/05/24 documented as of this encounter
--- OUTSIDE RECORDS SUMMARY | 2025-02-21 16:44 | XMS_ITS | Encounter Summary ---
Author Organization [employer] Address [address] [facility] [address], [place] [address] Care Team Providers Care Diplomatic Interpreter Name Role Phone Analy Chen MD Primary Care Provider [phone] Nai Menendez MD Primary Care Provider [phone] Reason for Referral * Consultation (Routine) - Closed Specialty Diagnoses / Procedures Referred By Contac t Referred To Contact Cardiology Diagnoses Primary hypertension Other chest pain Nai Menendez MD [address] [place] [address] Phone: tel: fax: Stephan Batista MD [address] [place] [address] Phone: tel: fax: Referral ID Status Reason Start Date Expiration Date V isits Requested Visits Authorized [id number] Closed Specialty Services Required 04/17/2024 04/17/2025 1 1 Encounter Details Date Type Department Care Team (Late st Contact Info) Description 04/17/2024 Orders Only [facility]S [address] [place] [phone] Nai Menendez MD [address] [place] [address] Primary hypertension (Primary Dx); Other chest pain [...] Description 05/24/2025 9:45 AM EDT Office Visit [facility] MED & PEDS [address] [place] [address] Nai Menendez MD [address] [place] [address] Scheduled Referrals Name Type Priority Associated Diagnoses [...] documented as of this encounter Care Teams Diplomatic Interpreter Relationship Specialty Start Date End Date Analy Chen MD [address] [place] [address] PCP - General Internal Medicine 02/02/24 09/24/24 Nai Menendez MD [address] [place] [address] PCP - General Internal Medicine 09/25/24 Phuong Fink District Medical ExaminerGold Prospector 12/05/24 documented as of this encounter
--- OUTSIDE RECORDS SUMMARY | 2025-02-21 16:44 | XMS_ITS | Encounter Summary ---
Author Organization [employer] Address 75 [facility] 7 [place] [address] Care Team Providers Care Outcomes Analyst Name Role Phone Nai Menendez MD Primary Care Provider [phone] Reason for Visit * Reason Onset Date Comments Pt1 10/10/2024 Encounter Details Date Type Department Care Team ([facility] Contact Info) Description 10/10/2024 Telephone [facility] CHC MED & PEDS [address] [place] [address] Nai Menendez MD [address] [place] [address] Pt1 Social History Tobacco Use Types Packs/Day [...] Y/N: Yes Provider name or facility name: [facility] Physical Therapy Facility Address: [address] [place] [address] [place] [address] Escort needed: Y/N: No Do you have a wheelchair: Y/N: No If yes- Manual or electric: n/a Visits: 2-3 times a month for 6 months documented in this encounter Plan of Treatment Upcoming Encounters Date Type Department Care Team ([facility] st Contact Info) Description 05/24/2025 9:45 AM EDT Office Visit [facility] CHC MED & PEDS [address] [place] [address] Nai Menendez MD [address] [place] [address] documented as of this encounter Visit Diagnoses Not on filedocumented in this encounter Additional Health Concerns Assessment Noted Time PHQ-9 Depression Total Score: 4 02/02/20 9:37 AM EDT documented as of this encounter Care Teams Outcomes Analyst Relationship Specialty Start Date End Date Nai Menendez MD [address] [place] [address] PCP - General Internal Medicine 09/25/24 Phuong Fink Slicing Machine OperatorManager Client 12/05/24 documented as of this encounter
--- OUTSIDE RECORDS SUMMARY | 2025-02-21 16:44 | XMS_ITS | Clinical Summary ---
Author Organization [facility] Address [address] [place] [address] Care Team Providers Care Supervisor Stage Carpentry Name Role Phone Unavailable Primary Care Provider [...] 01/23/2017 Imm-Zoster, Recombinant (1 of 2) 01/23/2022 Iha-IQIBO-52 ( - season) 2024 021, 03/06/2021 Imm-Influenza (#1) 2024 Alcohol and Drug Screen 11/01/2024 Depression Annual Screen 11/01/[address] [facility] UNINSURED TESTING AND TREATMENT FUND
--- OUTSIDE RECORDS SUMMARY | 2025-02-21 16:44 | XMS_ITS | Encounter Summary ---
Author Organization [employer] Address 75 [facility] 7t [place] [address] Care Team Providers Care Event Marketing Manager Name Role Phone Analy Chen MD Primary Care Provider [phone] Nai Menendez MD Primary Care Provider [phone] Encounter Details Date Type Department Care Team ([facility] st Contact Info) Description 06/14/2024 Orders Only [facility] CHC MED & PEDS [address] [place], [place] [address] Nai Menendez MD [address] [place] [address] Tremor (Primary Dx); Low TSH level Social [...] Description 05/24/2025 9:45 AM EDT Office Visit [facility] CHC MED & PEDS [address] [place] [address] Nai Menendez MD [address] [place] [address] documented as of this encounter Visit Diagnoses Diagnosis Tremor- Primary Abnormal involuntary movements Low TSH level documented in this encounter Additional Health Concerns Assessment Noted Time PHQ-9 Depression Total Score: 4 02/02/20 9:37 AM EDT documented as of this encounter Care Teams Event Marketing Manager Relationship Specialty Start Date End Date Analy Chen MD [address] [place] [address] PCP - General Internal Medicine 02/02/24 09/24/24 Nai Menendez MD [address] [place] [address] PCP - General Internal Medicine 09/25/24 Phuong Fink [employer] ConsultantCost Recovery Technician 12/05/24 documented as of this encounter
--- OUTSIDE RECORDS SUMMARY | 2025-02-21 16:44 | XMS_ITS | Encounter Summary ---
Author Organization [employer] Address 75 [facility] 7 [place] [address] Care Team Providers Care Mutual Fund Manager Name Role Phone Nai Menendez MD Primary Care Provider [phone] Reason for Visit * Reason Onset Date Comments pre op 12/21/2024 Encounter Details Date Type Department Care Team ([facility] Contact Info) Description 12/21/2024 Telephone [facility] MED & PEDS [address] [place] [address] Nai Menendez MD [address] [place] [address] pre op Social History Tobacco Use Types [...] Yes EKG: Yes Surgeon's name: Facility name: [facility]. Procedure will be done at [facility] Surgeon's office number: [phone] Surgeon's office fax number: [phone] Contact name (person you spoke with): Kim Last office note from surgeon requested: No Send Message to Sima Ferraro and Josef Muhammad documented in this encounter Plan of Treatment Upcoming Encounters Date Type Department Care Team ([facility] st Contact Info) Description 05/24/2025 9:45 AM EDT Office Visit [facility] MED & PEDS [address] [place] [address] Nai Menendez MD [address] [place] [address] documented as of this encounter Visit Diagnoses Not on filedocumented in this encounter Additional Health Concerns Assessment Noted Time PHQ-9 Depression Total Score: 4 02/02/20 24 9:37 AM EDT documented as of this encounter Care Teams Mutual Fund Manager Relationship Specialty Start Date End Date Nai Menendez MD [address] [place] [address] PCP - General Internal Medicine 09/25/24 Phuong Fink Biomass Boiler OperatorCivil Engineering Intern 12/05/24 documented as of this encounter
--- OUTSIDE RECORDS SUMMARY | 2025-02-21 16:44 | XMS_ITS | Encounter Summary ---
Author Organization [employer] Address 75 [facility] 7t [place] [address] Care Team Providers Care Railcar Carpenter Name Role Phone Analy Chen MD Primary Care Provider [phone] Nai Menendez MD Primary Care Provider [phone] Reason for Visit * Reason Onset Date Comments Call Back Request 06/09/2024 Encounter Details Date Type Department Care Team (Late st Contact Info) Description 06/09/2024 Telephone [facility] MEDICINE [address] [place] [address] Analy Chen MD [address] [place] [address] Call Back Request Social History Tobacco Use [...] [facility] MED & PEDS [address] [place] [address] Nai Menendez MD [address] [place] [address] documented as of this encounter Visit Diagnoses Not on filedocumented in this encounter Additional Health Concerns Assessment Noted Time PHQ-9 Depression Total Score: 4 02/02/20 9:37 AM EDT documented as of this encounter Care Teams Railcar Carpenter Relationship Specialty Start Date End Date Analy Chen MD [address] [place] [address] PCP - General Internal Medicine 02/02/24 09/24/24 Nai Menendez MD [address] [place] [address] PCP - General Internal Medicine 09/25/24 Phuong Fink Progressive Care Unit Registered NurseStone Processing Machine Operator 12/05/24 documented as of this encounter
--- OUTSIDE RECORDS SUMMARY | 2025-02-21 16:44 | XMS_ITS | Encounter Summary ---
Author Organization [employer] Address [address] [facility] 7t [place] [address] Care Team Providers Care Human Service Coordinator Name Role Phone Analy Chen MD Primary Care Provider [phone] Nai Menendez MD Primary Care Provider [phone] Reason for Visit * Reason Onset Date Comments Nurse Triage 09/12/2024 Encounter Details Date Type Department Care Team (Late st Contact Info) Description 09/12/2024 Telephone [facility] MEDICINE [address] [place] [address] Analy Chen MD [address] [place] [address] Nurse Triage Social History Tobacco Use Types [...] 9:45 AM EDT Office Visit [facility] MED & PEDS [address] [place] [address] Nai Menendez MD [address] [place] [address] documented as of this encounter Visit Diagnoses Not on filedocumented in this encounter Additional Health Concerns Assessment Noted Time PHQ-9 Depression Total Score: 4 02/02/20 9:37 AM EDT documented as of this encounter Care Teams Human Service Coordinator Relationship Specialty Start Date End Date Analy Chen MD [address] [place] [address] PCP - General Internal Medicine 02/02/24 09/24/24 Nai Menendez MD [address] [place] [address] PCP - General Internal Medicine 09/25/24 Phuong Fink Manager CenterPhoto Lab Technician 12/05/24 documented as of this encounter
--- OUTSIDE RECORDS SUMMARY | 2025-02-21 16:44 | XMS_ITS | Clinical Summary ---
Author Organization [employer] Address [address] [facility] [address] [place] [address] Care Team Providers Care Traveling Storekeeper Name Role Phone Nai Menendez MD Primary Care Provider [phone] Allergies No known active allergies Medications * [...] ium Nitrate 1.1-5 % pasteIndication s:Dental caries Tennyson teeth for 2 minutes, morning and night. [...] Description 02/20/2025 10:40 AM EDT Office Visit [facility] [address] [place] [address] Nai Menendez MD Subcutaneous nodule of abdominal wall (Primary Dx); Gastroesophageal reflux disease without esophagitis; Anxiety; Other insomnia 02/20/2025 Travel 02/20/2025 Telephone [facility] [address] [place] [address] Nai Menendez MD Walk-In 02/12/2025 9:00 AM EDT Office Visit [facility] [address] [place] [address] Nai Menendez MD Polydipsia (Primary Dx); Unilateral inguinal hernia without obstruction or gangrene, recurrence not specified; Primary hypertension 02/12/2025 Travel 02/06/2025 Patient Outreach [facility] [address] [place] [phone] Nai Menendez MD Care Coordination (CHW outreach for SDOH food needs-referral completed /) 02/06/2025 Travel 02/05/2025 Patient Outreach [facility] [address] [place] [address] Nai Menendez MD Pre-visit Planning (SDOH screening positive and Tobacco screening negative) 02/05/2025 Patient Outreach [facility] [address] [place] [address] Nai Menendez MD Pre-visit Planning (Pre visit planning LVM ) 02/01/2025 Telephone [facility] [address] [place] [address] Nai Menendez MD Nurse Triage 01/12/2025 Population Health Risk Score Community Care [facility] (C3) Department [address] [place] [phone] Provider, Population Health Generic 01/12/2025 Telephone [facility] [address] [place] [address] Analy Chen MD FAX: Pre-op 01/11/2025 1:30 PM EDT Office Visit [facility] [address] [place] [address] Analy Chen MD Preop examination (Primary Dx); Primary hypertension; Adjustment disorder with mixed anxiety and depressed mood 01/11/2025 Travel 01/02/2025 [facility] [address] [place] [address] ProviderDarrian MD 01/02/2025 Refill [facility] [address] [place] [address] Nai Menendez MD Dysuria 12/27/2024 Travel 12/27/2024 Refill [facility] [address] [place] [address] Analy Chen MD Anxiety; Adjustment insomnia 12/21/2024 Telephone [facility] [address] [place] [address] Nai Menendez MD pre op 12/21/2024 Telephone [facility] [address] [place] [address] Nai Menendez MD 12/20/2024 Telephone [facility] [address] [place] [address] Nai Menendez MD Results 12/18/2024 Travel 12/12/2024 10:45 AM EST Office Visit [facility] [address] [place] [address] Nai Menendez MD Left hip pain (Primary Dx); Primary hypertension; Bulge in groin area; Severe right groin pain; Dysuria 12/11/2024 Travel 12/11/[address] [address] Nai Menendez MD Nurse Triage 12/05/2024 Telephone [facility] [address] [place] [address] Nai Menendez MD Care Coordination ([facility] Inspector Process) 12/01/[address] [address] Nai Menendez MD Medication Question 11/30/2024 1:45 PM EST Office Visit [facility] [address] [place] [address] Nai Menendez MD Severe right groin pain (Primary Dx); Primary hypertension; Nasal congestion; Gastroesophageal reflux disease without esophagitis; Anxiety; Adjustment insomnia; Left hip pain; Right upper quadrant pain 11/30/2024 Travel 11/29/2024 Telephone [facility] [address] [place] [address] Nai Menendez MD CHART PREP 11/24/2024 Travel 11/23/2024 Telephone [facility] [address] [place] [address] Nai Menendez MD recall appt (Pt needs [...] Description 05/24/2025 9:45 AM EDT Office Visit [facility] [address] [place] [address] Nai Menendez MD [address] [place] [address] Health Maintenance Due Date Last Done Comments [...] 9:30 AM EDT Periodontal disease Defective dental scientology Symptomatic irreversible pulpitis PROPHYLAXIS - ADULT Routine [...] Media Lot # [id number] Lot# Expiration Date [id number] Comment:random Blood Capillary blood specimen / Unknown 02/12/2025 9:43 AM EDT us Nai Menendez MD POINT OF CARE TEST ENTER/ED IT ORDERABLES Final Result * Urinalysis Complete (01/11/2025 2:30 PM EDT) Color Urine Yellow [facility] Appearance Urine Clear [facility] PH 7.5 5.0 - 9.0 [facility] Glucose Urine UA Negative Negative mg/dL [facility] Urine Blood Negative Negative [facility] Specific [place] - Urine 1.020 1.005 - 1.025 [facility] Urine Protein Negative Neg-Trace mg/dL [facility] Urine Ketones Negative Negative mg/dL [facility] Nitrite Urine Negative Negative [facility] Leukocyte Esterase Urine Negative Negative [facility] RBC Urine 0-2 0 - 2 /HPF [facility] Urine WBC 0-5 0 - 5 /HPF [facility] Urine Squamous Epithelial Cell 0-2 0 - 2 /HPF [facility] Urine Bacteria None Seen None Seen [facility] Hyaline Casts, Urine 0-2 0 - 2 /LPF [facility] Urine (Urine, Random) 01/11/2025 2:30 PM EDT 01/11/2025 5:25 PM EDT us Analy Chen MD LAB URINE ORDERABLES Final Re sult [facility] [address] [place] [phone] * CBC auto differential (01/11/2025 2:10 PM EDT) White Blood Count 6.0 4.8 - 10.8 X10*3/uL [facility] Red Blood Count 4.69 4.60 - 5.80 X10*6/uL [facility] Hemoglobin 14.2 14.0 - 18.0 g/dl [facility] Hematocrit 42.7 42.0 - 52.0 % [facility] Mean Corpuscular Volume 91.0 80.0 - 98.0 fL [facility] Mean Corpuscular Hemoglobin 30.3 27.0 - 33.0 pg [facility] Mean Corpuscular HGB Conc 33.3 31.0 - 36.0 g/dl [facility] Red Cell Distribution Width 12.8 11.0 - 16.0 % [facility] Platelet Count 239 160 - 400 X10*3/uL [facility] Mean Platelet Volume 10.4 9.4 - 12.4 fL [facility] Neutrophils Percent Auto 58.1 45 - 73 % [facility] Imm Gran Pct Auto 0.3 0.0 - 0.4 % [facility] Lymphocytes Percent Auto 28.3 20 - 40 % [facility] Monocytes Percent Auto 10.8 2 - 11 % [facility] Eosinophils Percent Auto 1.7 0 - 4 % [facility] Basophils Percent Auto 0.8 0 - 2 % [facility] NRBC Pct Auto 0.0 0.0 - 0.2 /100WBC [facility] Neutrophils Absolute Auto 3.5 2.0 - 8.3 x10*3/uL [facility] Imm Gran Abs Auto 0.02 0.00 - 0.03 X10*3/uL [facility] Lymphocytes Absolute Auto 1.7 1.2 - 4.9 X10*3/uL [facility] Monocytes Absolute Auto 0.7 0.1 - 1.2 X10*3/uL [facility] Eosinophils Absolute Auto 0.1 0.0 - 0.4 X10*3/uL [facility] Basophils Absolute Auto 0.1 0.0 - 0.2 X10*3/uL [facility] NRBC Abs Auto 0.000 0.0 - 0.012 X10*3/uL [facility] Blood Venous blood specimen / Unknown 01/11/2025 2:10 PM EDT 01/11/2025 5:37 PM EDT us Analy Chen MD LAB BLOOD ORDERABLES Final Re sult Performing Organization Address [facility]/ZIP Co de Phone Number [facility] [address] [place] [phone] * Prothrombin Time-INR (01/11/2025 2:10 PM EDT) Prothrombin Time 12.4 10.9 - 12.4 SEC [facility] INTERNATIONAL NORM RATIO 1.1 0.9 - 1.1 [facility] Comment:INTERNATIONAL NORMAL IZED RATIO (INR) [...] ORDERABLES Final Re sult Performing Organization Address [facility] Co de Phone Number [facility] [address] [place] [phone] * (ABNORMAL) Hepatic Function Panel (01/11/2025 2:10 PM EDT) Bilirubin, Total 1.1(H) 0.0 - 1.0 mg/dL [facility] Bilirubin, Direct 0.3 0.0 - 0.5 mg/dL [facility] Aspartate Amino Transferase 23 5 - 37 U/L [facility] Alanine Aminotransferase 45(H) 0 - 40 U/L [facility] Total Protein 7.4 6.5 - 8.0 g/dL [facility] Albumin Level 4.0 3.5 - 5.0 g/dL [facility] Alkaline Phosphatase 48 39 - 117 U/L [facility] Blood Venous blood specimen / Unknown 01/11/2025 2:10 PM EDT 01/11/2025 5:37 PM EDT us Analy Chen MD LAB BLOOD ORDERABLES Final Re sult Performing Organization Address [facility] Co de Phone Number [facility] [address] [place] [phone] * (ABNORMAL) Basic Metabolic Panel (01/11/2025 2:10 PM EDT) Sodium 143 135 - 145 mmol/L [facility] Potassium 4.2 3.3 - 5.1 mmol/L [facility] Chloride 107 96 - 108 mmol/L [facility] Carbon Dioxide 28 22 - 29 mmol/L [facility] Anion Gap 12 12 - 20 [facility] Urea Nitrogen (BUN) 19(H) 9 - 16 mg/dL [facility] Creatinine, Serum 0.89 0.5 - 1.4 mg/dL [facility] Estimated Glomerular Filt Rate >60 [facility] Comment:Chronic Kidney Disea se: Estimated GFR < 60 mL/min/[id number] Kidney Disease: Estimated GFR < 15 mL/min/1.73m2 Glucose 83 60 - 115 mg/dL [facility] Calcium 9.4 8.4 - 10.2 mg/dL [facility] Blood Venous blood specimen / Unknown 01/11/2025 2:10 PM EDT 01/11/2025 5:37 PM EDT us Analy Chen MD LAB BLOOD ORDERABLES Final Re sult Performing Organization Address [facility]/ZIP Co de Phone Number [facility] [address] [place] [phone] * ECG 12 lead (01/11/2025 1:48 [...] EST ? [facility] ?[address] [facility] [address] ? [place] [address] ? Ultrasound Report ? Signed ? Patient: DanaeOsei ?MR#: [id number] ?? 9 ? : 1970 ?Acct:[id number] ? Age/Sex: 54 / M ?ADM Date: 12/15/24 ? Loc: HO.HMGCX ? Attending Dr: Nai Menendez MD ? Ordering Physician: Nai Menendez MD ?? Date of Service: 12/15/24 ?? Procedure(s): US abdomen complete ?? Accession Number(s): [id number] ? cc: Nai Menendez MD ? CLINICAL [...] ? DD/ 7 ? TD/TT: 12/16/24837 ? Manager Biologics: ? Procedure Note Donotdanielter, Image - 12/16/2024 [facility] [address] [place] [address] [place] [address] Ultrasound Report Signed Patient: Osei Fink#: [id number] 9 : 1970Acct:[id number] Age/Sex: 54 / MADM Date: 12/15/24 Loc: .HMGCX Attending Dr: Nai Menendez MD Ordering Physician: Nai Menendez MD Date of Service: 12/15/24 Procedure(s): US abdomen complete Accession Number(s): [id number] cc: Nai Menendez MD CLINICAL HISTORY: Right [...] in OV> 12/16/24838 DD/ 7 TD/TT: 12/16/24837 Manager Biologics: Nai Menendez MD [facility] US PROCEDURES Edited Re sult - Final * Cologuard?? colon cancer screening (02/21/2024 7:45 AM EDT) Cologuard Result Negative Negative 03/01/20 3:29 AM EDT [facility] (CLIA #:[id number]) Comment: NEGATIVE TEST RESULT. A negative Cologuard [...] cancer. ??Following a negative Cologuard result, the [place] Cancer Society and U.S. Multi-Society Task Force screening guidelines recommend a Cologuard re-screening interval of 3 years. References: [place] [employer] Society Guideline for Colorectal Cancer Screening: https://www.cancer.org/cancer/cpqwb-fotggg-vbbyjl/dqqslknbj-omdoynxng-cvylpej/ac s-rec ommendations.html.; Peña DK, Ra CR, Alisa BakerK, Colorectal Cancer Screening: Recommendations for Physicians and Patients from the U.S. Multi-Society Task Force on Colorectal Cancer Screening , Am J Gastroenterology 2017; 112:1420-2796. TEST DESCRIPTION: Composite algorithmic analysis of stool [...] (Lela Jones al, N Engl J Med 2014;370(14):5263-6260.) Cologuard may produce a false negative or false positive result (no colorectal cancer or precancerous polyp present at colonoscopy follow up). A negative Cologuard test result does not guarantee the absence of CRC or advanced adenoma (pre-cancer). The current Cologuard screening interval is every 3 years. ([place] Cancer Society and U.S. Multi-Society Task Force). Cologuard performance data in a 10,000 patient pivotal study using colonoscopy as the reference method can be accessed at the following location: www.PaeDae.Kinkaa Search Tools/results. Additional description of the Cologuard test process, warnings and precautions can be found at www.[employer]ov[employer] Pharmaceuticalsoguard.com. Stool specimen (specimen) 02/21/2024 7:45 AM EDT 02/23/2024 10:44 AM EDT Analy Chen MD LAB MOLECULAR DIAGNOSTICS ORD ERABLES Final Result [facility] (CLIA #:[id number]) [place] [address], * Hepatitis A,B,C Profile (02/02/2024 10:43 AM EDT) Hepatitis A IgM Nonreactive Nonreactive [facility] Comment:IgM antibodies to QUINTANILLA V not detected; does not exclude earlyacute or recovered HAV infection. ~Hepatitis B Surface Antibody NONREACTIVE Nonreactive [facility] Comment:Nonreactive: < 8.00 mIU/mL Hepatitis B Core Antibody Nonreactive Nonreactive [facility] Hepatitis C Antibody Nonreactive Nonreactive [facility] Comment:Antibodies to HCV no t detected; does not exclude early acuteHCV infection. Hepatitis B Surface Ag Negative Negative [facility] Blood Venous blood specimen / Unknown 02/02/2024 10:43 AM EDT 02/02/2024 2:10 PM EDT us Analy Chen MD LAB BLOOD ORDERABLES Final Re sult [facility] [address] [place] [phone] * HIV-1/2 Antigen and Antibodies, Fourth [...] below the limit ofdetection of this assay.The [employer] HIV Ag/Ab Combo assay result andsupplemental assay results should be interpreted inconjunction with the patient's clinical presentation,history and other laboratory results. If the results areinconsistent with clinical evidence, additional testing issuggested to confirm the result. Blood Venous blood specimen / Unknown 02/02/2024 10:43 AM EDT 02/02/2024 2:10 PM EDT us Analy Chen MD LAB BLOOD ORDERABLES Final Re sult Performing Organization Address [facility] Co de Phone Number [facility] [address] [place] [address] [phone] * (ABNORMAL) Lipid Panel, Standard (02/02/2024 10:43 AM EDT) Triglycerides 143 <150 mg/dL [facility] Comment:Desirable Triglyceri de: less than 150 mg/dLBorderline High Triglyceride 150-199 mg/dLHigh Triglyceride: 200-499 mg/dLVery High Triglyceride: greater than or equal to 5OO mg/dL Cholesterol 174 <200 mg/dL [facility] Comment:Desirable Cholestero l: less than 200 mg/dLBorderline High Cholesterol: 200-239 mg/dLHigh Cholesterol: greater than 239 mg/dL LDL Cholesterol Calculated 105(H) <100 mg/dL [facility] Comment:Desirable LDL: less than 100 mg/dLNear Optimal/Above Optimal LDL: 110- 129 mg/dLBorderline High LDL: 130-159 mg/dLHigh LDL: 160-189 mg/dLVery High LDL: greater than or equal to 190 mg/dL HDL Cholesterol 41 >40 mg/dL [facility] Comment:Desirable HDL: great er than 40 mg/dL Note: This HDL assay may give artificially low results in patients with liver disease. Blood Venous blood specimen / Unknown 02/02/2024 10:43 AM EDT 02/02/2024 2:10 PM EDT us Analy Chen MD LAB BLOOD ORDERABLES Final Re sult Performing Organization Address [facility]/ZIP Co de Phone Number [facility] [address] [place] [address] [phone] from Last 3 Months or Most Recently Relevant to Health Maintenance Insurance [facility] C3 DENTAL-[facility] MEDICAID STAND ADULT Care Teams Traveling Storekeeper Relationship Specialty Start Date End Date Nai Menendez MD [address] [place] [phone] PCP - General Internal Medicine 09/25/24 Phuong Fink Crystal GazerAsset Protection Manager 12/05/24
--- OUTSIDE RECORDS SUMMARY | 2025-02-21 16:44 | XMS_ITS | Encounter Summary ---
Author Organization [employer] Address [address] [facility] 7 [place] [address] Care Team Providers Care Electrician Research Name Role Phone Nai Menendez MD Primary Care Provider [phone] Reason for Visit * Reason Onset Date Comments Medication Question 12/01/2024 Encounter Details Date Type Department Care Team ([facility] st Contact Info) Description 12/01/2024 Telephone [facility] [address] [place] [address] Nai Menendez MD [address] [place], [place] [phone] Medication Question Social History Tobacco Use Types [...] has questions regarding medication prescribed on 11/30/24. Internal Medicine Veterinary Technician explained cetirizine 10mg for allergies/post nasal drip, [...] [facility] [address] [place] [address] Nai Menendez MD [address] [place] [address] documented as of this encounter Visit Diagnoses Not on filedocumented in this encounter Additional Health Concerns Assessment Noted Time PHQ-9 Depression Total Score: 4 02/02/20 24 9:37 AM EDT documented as of this encounter Care Teams Electrician Research Relationship Specialty Start Date End Date Nai Menendez MD [address] [place] [address] PCP - General Internal Medicine 09/25/24 Phuong Fink Book CutterSoftware Technician 12/05/24 documented as of this encounter
--- OUTSIDE RECORDS SUMMARY | 2025-02-21 16:44 | XMS_ITS | Clinical Summary ---
Author Organization [address] [facility] Address [address] [place] [address] Phone Care Team Providers Care Foxing Painter Name Role Phone Nai Menendez MD Primary Care Provider [phone] Allergies No known active allergies Medications amLODIPine [...] 9:15 AM EDT Office Visit Bariatric Surgery [address] [phone] Zayra Cuevas MD S/P laparoscopic hernia repair (Primary Dx); Right groin pain; Seroma due to trauma ([facility] V24) 02/04/2025 11:11 AM EDT - 02/04/2025 11:59 PM EDT Hospital Encounter [facility] Ultrasound [address] [place] [address] Right groin pain; Hx of right inguinal hernia repair Discharge Disposition: Home or Self Care 02/01/2025 Telephone Bariatric Surgery [facility] [address] [phone] Zayra Cuevas MD Advice Only (PO in pain) 01/18/2025 11:13 AM EDT Anesthesia Event [facility] Main OR [address] [place] [phone] Aguilar Presley MD Sobo, Kathleen, CRNA 01/18/2025 10:30 AM EDT - 01/18/2025 1:00 PM EDT Surgery [facility] Main OR [address] [place] [phone] Zayra Cuevas MD DAVINCI REPAIR RECURRENT RIGHT INGUINAL HERNIA; WITH MESH [[id number] (CPT??)] 01/18/2025 9:00 AM EDT - 01/18/2025 4:50 PM EDT Hospital Encounter [facility] Main OR [address] [place] [phone] Zayra Cuevas MD Recurrent right inguinal hernia; Hx of bilateral inguinal hernia repair Discharge Disposition: Home or Self Care 12/20/2024 8:45 AM EST Office Visit Bariatric Surgery - [place] [address] [facility] [address] [place] [address] Zayra Cuevas MD Recurrent inguinal hernia of right side without obstruction or gangrene (Primary Dx); Inguinal pain, unspecified laterality 12/20/2024 Telephone General Surgery [facility] [address] [facility] [address] [place] [address] Yolande Avendano MA from Last [...] AM EDT Office Visit Bariatric Surgery - [place] [address] [facility] [address] [place] [address] Zayra Cuevas MD [address] [facility] [address] [place] [address] Health Maintenance Due Date Last [...] this topic Medical Devices Implanted Type Area Vocational Rehabilitation Administrator Device Identifier Shelf Expiration Date Model / Serial / Lot Mesh 3dmax Lght Lg 4.1x6.2 R 4.1x6.2in - Sn/A - [id number] Implanted:Qty: 1 on 01/18/2025 by Zayra Cuevas MD at [facility] Surgical Mesh Sling Implants Right: Abdomen CR BARD - DAVOL DIV 04/28/2029 [id number] / N/A / [id number] Procedures Procedure Name Priority Date/Time Associated Diagnosis Comments US ABDOMEN LIMITED STAT 02/04/2025 12 :06 PM EDT Right groin pain Hx of right inguinal hernia repair OXYGEN THERAPY, ADULT Routine 01/18/2025 1:41 PM EDT TISSUE EXAM Routine 01/18/2025 12:40 PM EDT Recurrent right inguinal hernia Hx of bilateral inguinal hernia repair TH AN ENDOTRACHEAL(NO CHARGE) Routine 01/18/2025 11:36 AM EDT [facility] REPR INITIAL INGUINAL HERNIA 01/18/2025 [...] Signed Date: 02/04/2025 12:24 ET Workstation ID: [id number] Transcribed By: Self Edit Transcribed Date: 02/04/2025 [...] Signed Date: 02/04/2025 12:24 ET Workstation ID: [id number] Transcribed By: Self Edit Transcribed Date: 02/04/2025 12:20 ET us Zayra Cuevas MD IMG US PROCEDURES Final Result * Tissue exam (01/18/2025 12:40 PM EDT) Final Diagnosis Hernia, Inguinal Canal, right-herniorrha phy: -HERNIA SAC 01/25/2025 9:09 AM [facility] Gross Description A. Inguinal Canal, [...] tissue), one piece. TS 01/25/2025 9:09 AM [facility] Disclaimer Unless otherwise specified, all tissue is 10% NB formalin fixed and paraffin embedded. 01/25/2025 9:09 AM EDT [facility] Tissue Inguinal canal structure / Unknown 01/18/2025 12:40 PM EDT 01/18/2025 2:40 PM EDT Zayra Cuevas MD LAB PATHOLOGY ORDERABLE S Final Result [facility] [address] [place] [address], [place] [phone] * TH AN ENDOTRACHEAL(NO CHARGE) (01/18/2025 11:36 [...] GEMUSE QTc 396 ms GEMUSE P Wave [place] 58 degrees GEMUSE R [place] 6 degrees GEMUSE T [place] 42 degrees GEMUSE ECG Interpretation Normal sinus rhythm Normal ECG When compared with ECG of 23-MAY-2024 14:03, QRS axis Shifted right Confirmed by Edgar CHEW JOHN ([id number]) on 01/01/2025 8:08:21 PM GEMUSE 01/01/2025 11:2 2 AM EST 01/01/2025 8:08 PM EST us Zayra Cuevas MD ECG ORDERABLES Final R esult GEMUSE from Last 3 Months Insurance MEDICAID - [place] Care Teams Foxing Painter Relationship Specialty Start Date End Date Nai Menendez MD [address] [place] [address] PCP - General Internal Medicine 12/14/24
--- OUTSIDE RECORDS SUMMARY | 2025-02-21 16:44 | XMS_ITS | Encounter Summary ---
Author Organization [employer] Address [address] [facility] 7[address] [place] [address] Care Team Providers Care Neurology Specialist Name Role Phone Analy Chen MD Primary Care Provider [phone] Nai Menendez MD Primary Care Provider [phone] Reason for Visit * Reason Onset Date Comments Nurse Triage 02/09/2024 Encounter Details Date Type Department Care Team (Late st Contact Info) Description 02/09/2024 Telephone [facility] MEDICINE [address] [place] [address] Analy Chen MD [address] [place] [address] Nurse Triage Social History Tobacco Use Types [...] of previous surgery. No apts available in [facility] today or tomorrow. Pt is advised to come [facility] today for provider to see Pt [...] 9:45 AM EDT Office Visit [facility] MED & PEDS [address] [place] [address] Nai Menendez MD [address] [place] [address] documented as of this encounter Visit Diagnoses Not on filedocumented in this encounter Additional Health Concerns Assessment Noted Time PHQ-9 Depression Total Score: 4 02/02/20 24 9:37 AM EDT documented as of this encounter Care Teams Neurology Specialist Relationship Specialty Start Date End Date Analy Chen MD [address] [place] [address] PCP - General Internal Medicine 02/02/24 09/24/24 Nai Menendez MD [address] [place] [address] PCP - General Internal Medicine 09/25/24 Phuong Fink Gaming Floor SupervisorMiller Helper 12/05/24 documented as of this encounter
--- OUTSIDE RECORDS SUMMARY | 2025-02-21 16:44 | XMS_ITS | Encounter Summary ---
Author Organization [employer] Address [address] [facility] [address] [place] [address] Care Team Providers Care Park Worker Supervisor Name Role Phone Analy Chen MD Primary Care Provider [phone] Nai Menendez MD Primary Care Provider [phone] Reason for Visit * Reason Onset Date Comments ER Follow-up 02/11/2024 Encounter Details Date Type Department Care Team (Late st Contact Info) Description 02/11/2024 Telephone [facility] MEDICINE [address] [place] [address] Analy Chen MD [address] [place], [place] [id number] ER Follow-up Social History Tobacco Use Types [...] visit on : Date: 02/08 Hospital: [facility] Seen for: Skin Lump had surgery on 01/26 for hernia and still had pain with a lump Patient advised will forward to team nurse for follow up documented in this encounter Plan of Treatment Upcoming Encounters Date Type Department Care Team (Late st Contact Info) Description 05/24/2025 9:45 AM EDT Office Visit [facility] MED & PEDS [address] [place] [address] Nai Menendez MD [address] [place] [address] documented as of this encounter Visit Diagnoses Not on filedocumented in this encounter Additional Health Concerns Assessment Noted Time PHQ-9 Depression Total Score: 4 02/02/20 9:37 AM EDT documented as of this encounter Care Teams Park Worker Supervisor Relationship Specialty Start Date End Date Analy Chen MD [address] [place] [address] PCP - General Internal Medicine 02/02/24 09/24/24 Nai Menendez MD [address] [place] [address] PCP - General Internal Medicine 09/25/24 Phuong Fink Alodize Machine OperatorUniversity Internship 12/05/24 documented as of this encounter
--- OUTSIDE RECORDS SUMMARY | 2025-02-21 16:45 | XMS_ITS | Encounter Summary ---
Author Organization [employer] Address [address] [facility] [address] [place] [address] Care Team Providers Care Oiler Helper Name Role Phone Nai Menendez MD Primary Care Provider [phone] Encounter Details Date Type Department Care Team [...] Description 05/24/2025 9:45 AM EDT Office Visit [facility] MED & PEDS [address] [place] [address] Nai Menendez MD [address] [place] [address] documented as of this encounter Visit Diagnoses Not on filedocumented in this encounter Additional Health Concerns Assessment Noted Time PHQ-9 Depression Total Score: 10 025 9:07 AM EST documented as of this encounter Care Teams Oiler Helper Relationship Specialty Start Date End Date Nai Menendez MD [address] [place] [address] PCP - General Internal Medicine 09/25/24 Phuong Fink Preschool Assistant PrincipalManufacturing Engineer Paint 12/05/24 documented as of this encounter
--- OUTSIDE RECORDS SUMMARY | 2025-02-21 16:45 | XMS_ITS | Encounter Summary ---
Author Organization [employer] Address [address] [facility] 7 [place] [address] Care Team Providers Care Assistant Boiler Operator Name Role Phone Nai Menendez MD Primary Care Provider [phone] Reason for Visit * Reason Onset Date Comments Walk-In 02/20/2025 Encounter Details Date Type Department Care Team ([facility] Contact Info) Description 02/20/2025 Telephone [facility] CH[facility] MED & PEDS [address] [place] [address] Nai Menendez MD [address] [place] [address] Walk-In Social History Tobacco Use Types Packs/Day [...] 9:45 AM EDT Office Visit [facility] MED & PEDS [address] [place] [address] Nai Menendez MD [address] [place] [address] documented as of this encounter Visit Diagnoses Not on filedocumented in this encounter Additional Health Concerns Assessment Noted Time PHQ-9 Depression Total Score: 10 025 9:07 AM EST documented as of this encounter Care Teams Assistant Boiler Operator Relationship Specialty Start Date End Date Nai Menendez MD [address] [place] [address] PCP - General Internal Medicine 09/25/24 Phuong Fink Grease WorkerObiee Obia Solution Architect 12/05/24 documented as of this encounter
--- OUTSIDE RECORDS SUMMARY | 2025-02-21 16:45 | XMS_ITS | Encounter Summary ---
Author Organization [employer] Address [address] [place] [address] 7 [place] [address] Care Team Providers Care Pole Framer Machine Name Role Phone Nai Menendez MD Primary Care Provider [phone] Reason for Referral * Consultation (Routine) - Closed Specialty Diagnoses / Procedures Referred By Rolando leyva Referred To Contact Behavioral Health Diagnoses Anxiety Other insomnia Nai Menendez MD [address] [place] [address] Phone: tel: fax: Referral ID Status Reason Start Date Expiration Date V isits Requested Visits Authorized [id number] Closed Specialty Services Required 02/20/2025 02/20/2026 1 1 * Imaging (Urgent) - Authorized Specialty Diagnoses / Procedures Referred By Rolando leyva Referred To Contact Radiology Diagnoses Subcutaneous nodule of abdominal wall Procedures US ABDOMINAL WALL, SOFT TISSUE RIGHT Nai Menendez MD [address] [place] [address] Phone: tel: fax: [address] Phone: tel: fax: Referral ID Status Reason Start Date Expiration Date V isits Requested Visits Authorized [id number] Authorized 02/20/2025 02/20/2026 1 1 Reason for Visit * Reason Comments right inguinal subcutanous nodule Encounter Details Date Type Department Care Team (Late st Contact Info) Description 02/20/2025 10:40 AM EDT Office Visit [facility] CHC MED & PEDS [address] [facility] [place] [address] Nai Menendez MD [address] [place] [address] Subcutaneous nodule of abdominal wall (Primary Dx); [...] CONSTIPATION Sod Fluoride-Potassium Nitrate 1.1-5 % paste [place] teeth for 2 minutes, morning and night. [...] 9:45 AM EDT Office Visit [facility] CHC MED & PEDS [address] [place] [address] Nai Menendez MD [address] [place] [address] Scheduled Orders Name Type Priority Associated Diagnoses [...] Date End Date Nai Menendez MD [address] [place] [address] PCP - General Internal Medicine 09/25/[address] JusticeTest Data Developer 12/05/24 documented as of this encounter
== END 2025-02-21 13:57 | disposition home or self-care (01) ==
LOC: HO.US 13:56
PROVIDERS: PCP Pediatrics; Visit Provider Internal Medicine
DX: R22.2 Localized swelling, mass and lump, trunk (principal)
CPT/HCPCS: 76857

== ENCOUNTER → 2025-02-21 13:59 | Outpatient (BNV) | payer MEDICAID, SELFPAY | PROVIDERS: PCP Pediatrics; Visit Provider Radiology Diagnostic Radiology | DX: R19.09 Other intra-abdominal and pelvic swelling, mass and lump (principal); R59.0 Localized enlarged lymph nodes | CPT/HCPCS: 76857 ==

== ENCOUNTER 2025-05-17 14:02 | Outpatient (REF) | payer MEDICAID, SELFPAY ==
--- OUTSIDE RECORDS SUMMARY | 2025-05-17 14:48 | XMS_ITS | Clinical Summary ---
Author Organization [facility] Address [address] [place] [address] Care Team Providers Care Animal Maintenance Supervisor Name Role Phone Unavailable Primary Care Provider [...] 01/23/2017 Fecal DNA 01/23/2017 Flexible Sigmoidoscopy 01/23/2017 Imm-Pneumococcal 50+ (1 of 1 - PCV) 01/23/2022 Imm-Zoster, Recombinant (1 of 2) 01/23/2022 [id number] (3 - season) 2024 021, 03/06/2021 Alcohol and Drug Screen 11/01/2024 Depression Annual Screen 11/01/2024 Imm-Influenza (#1) 2025 [facility]
--- OUTSIDE RECORDS SUMMARY | 2025-05-17 14:48 | XMS_ITS ---
Author Organization [employer] Address [address] [facility] [address] [place] [address] Care Team Providers Care Parking Inspector Name Role Phone Nai Menendez MD Primary Care Provider [phone] CM Complex Status:Enrolled (Active) Start date:02/23/2025 Enrollment date:03/20/2025 Enrollment reason:Referred by provider Overview Provider Referral from Clinician Krystal Owens I would like to refer Osei for care management. Yvrose has chronic pain and multiple chronic conditions. He is feeling overwhelmed managing it all by him self and is looking for support. He endorsed interest in MANAGING CONSULTANT CLINICAL PROFESSOR services, resources for more affordable housing, and financial supports. I have referred him to OP therapy. Thanks Krystal Case Team Name Relationship Phone Marsha Martins RN(Responsible Staff) Registered Nurse [phone] Continued Care and Services Coordination
--- OUTSIDE RECORDS SUMMARY | 2025-05-17 14:48 | XMS_ITS | Clinical Summary ---
Author Organization [facility] Address [address] [place] [address] Phone Care Team Providers Care Damascener Name Role Phone Nai Menendez MD Primary Care Provider [phone] [phone] Allergies No known active allergies Medications amLODIPine [...] times a day. 14 each 01/18/2025 Active Active Problems Problem Noted Date Diagnosed Date Recurrent right inguinal hernia 12/20/2024 Hx of bilateral inguinal hernia repair Encounters Date Type Department Care Team Description 04/30/2025 1:47 PM EDT - 04/30/2025 11:59 PM EDT Hospital Encounter [facility] Ultrasound [address] [place] [address] Right groin pain Discharge Disposition: Home or Self Care 04/16/2025 8:30 AM EDT Office Visit Bariatric Surgery [address] [address] Zayra Cuevas MD Right groin pain (Primary Dx); S/P laparoscopic hernia repair; Subcutaneous nodule 03/23/2025 7:41 AM EDT - 03/23/2025 11:59 PM EDT Hospital Encounter [facility] Ultrasound [address] [place] [address] Right groin pain Discharge Disposition: Home or Self Care 03/12/2025 9:30 AM EDT Office Visit [facility] Surgery [address] [address] Zayra Cuevas MD Right groin pain (Primary Dx); S/P laparoscopic hernia repair; Seroma due to trauma (CMS/HCC V24) from Last 3 Months Surgical History Surgery [...] Sign Reading Time Taken Comments Blood Pressure 132/81 04/16/2025 8:23 AM EDT Pulse 76 04/16/2025 8:23 AM EDT Temperature 36.8 C (98.3 F) 04/16/2025 8:23 AM EDT Respiratory Rate 16 01/18/2025 3:37 PM EDT Oxygen Saturation 99% 01/18/2025 3:37 PM EDT Inhaled Oxygen Concentration - - Weight 71.2 kg (157 lb) 04/16/2025 8:23 AM EDT Height 167.6 cm (5' 6 ) 04/16/2025 8:23 AM EDT Body Mass Index 25.34 04/16/2025 8:23 AM EDT Plan of Treatment Health Maintenance Due Date Last Done Comments Hepatitis A Vaccines (1 of 2 - Risk 2-dose series) 01/23/1991 Hepatitis B Vaccines (1 of 3 - 19+ 3-dose series) 01/23/1991 Pneumococcal Vaccine: 50+ Years (1 of 1 - PCV) 01/23/2022 Zoster Vaccines (1 of 2) 01/23/2022 COVID-19 Vaccine ( - 2023-2 5 season) 2024 04/03/2021, 03/06/2021 Hepatitis C Screening 08/09/2024 Social Influencers of Health Screening 08/09/2024 Influenza Vaccine (#1) 2025 Hypertension/CHF/CAD Annual BMP Blood Test 01/11/2026 01/11/2025, 09/25/2024 Depression Screening 03/23/2026 03/23/2025 Colorectal Cancer Screening: FIT-DNA (Cologuard) 02/20/2027 02/21/2024 [...] this topic Medical Devices Implanted Type Area Primary Care Physician Device Identifier Shelf Expiration Date Model / Serial / Lot Mesh 3dmax Lght Lg 4.1x6.2 R 4.1x6.2in - Sn/A - [id number] Implanted:Qty: 1 on 01/18/2025 by Zayra Cuevas MD at [facility] Surgical Mesh Sling Implants Right: Abdomen CR BARD - DAVOL DIV 04/28/2029 [id number] / N/A / [id number] Procedures Procedure Name Priority Date/Time Associated Diagnosis Comments US BX NDL LYMPH NODE SUPERFICIAL RIGHT Routine 04/30/2025 3:15 PM EDT Right groin pain TISSUE EXAM Routine 04/30/2025 3:15 PM EDT Right groin pain FLOW CYTOMETRY Routine 04/30/2025 3:15 PM EDT Right groin pain US ABDOMEN LIMITED Routine 03/23/2025 8: 04 AM EDT Right groin pain from Last 3 Months Results * US Bx Ndl Lymph Node Superficial Right (04/30/2025 3:15 PM EDT) Anatomical Region Laterality Modality Body Right Ultrasound 04/30/2025 3:46 PM EDT Narrative 04/30/2025 3:50 PM EDT INDICATION: Right inguinal fatty mass as well as small symptomatic nodes. TECHNIQUE: Written informed consent obtained. Patient placed supine on the ultrasound stretcher. Multiple images obtained of the right inguinal region. After review of the images appropriate area the skin was localized under real- time ultrasound. This region was draped and prepped in the usual sterile fashion. 2% buffered lidocaine was used as a local anesthetic. Under real-time ultrasound guidance core biopsy obtained of the superficial fatty mass with 3 core samples performed and placed within formalin. Under ultrasound guidance biopsy performed of normal-sized lymph nodes noted inferiorly and just medial to the fatty mass with 2 samples placed in formalin and one sample placed in flow cytometry. The patient tolerated the procedure well and left the department in stable condition without immediate complications. FINDINGS: Direct comparison made to study from March 23, 2025. Images obtained during needle biopsy demonstrate tip of needle within localized fatty mass as well as lymph node. CONCLUSION: Ultrasound-guided core biopsy of right inguinal fatty mass as well as node located inferior medially. -------- FINAL REPORT -------- Dictated By: Roland Posadas Dictated Date: 04/30/2025 15:46 ET Assigned Physician: Roland Posadas Reviewed and Electronically Signed By: Roland Posadas Signed Date: 04/30/2025 15:50 ET Workstation ID: [id number] Transcribed By: Self Edit Transcribed Date: 04/30/2025 15:46 ET Procedure Note Roland Posadas MD - 04/30/2025 INDICATION: Right inguinal fatty mass as well as small symptomaticnodes. TECHNIQUE: Written informed consent obtained. Patient placed supine on theultrasound stretcher. Multiple images obtained of the right inguinalregion. After review of the images appropriate area the skin was localized underreal- time ultrasound. This region was draped and prepped in the usualsterile fashion. 2% buffered lidocaine was used as a local anesthetic. Under real-time ultrasound guidance core biopsy obtained of thesuperficial fatty mass with 3 core samples performed and placed withinformalin. Under ultrasound guidance biopsy performed of normal-sized lymph nodesnoted inferiorly and just medial to the fatty mass with 2 samples placedin formalin and one sample placed in flow cytometry. The patient tolerated the procedure well and left the department in stablecondition without immediate complications. FINDINGS: Direct comparison made to study from March 23, 2025. Images obtained during needle biopsy demonstrate tip of needle withinlocalized fatty mass as well as lymph node. CONCLUSION: Ultrasound-guided core biopsy of right inguinal fatty mass as well as nodelocated inferior medially. -------- FINAL REPORT -------- Dictated By: Roland Posadas Dictated Date: 04/30/2025 15:46 ET Assigned Physician: Roland Posadas Reviewed and Electronically Signed By: Roland Posadas Signed Date: 04/30/2025 15:50 ET Workstation ID: [id number] Transcribed By: Self Edit Transcribed Date: 04/30/2025 15:46 ET us Zayra Cuevas MD IM US PROCEDURES Final Result * Flow cytometry (04/30/2025 3:15 PM EDT) Flow Cytometry Interpretation Lymph node, right inguinal, flow cytometry: No monotypic B cell population identified. Most of the lymphocytes are CD3-positive T cells including CD4-positive and CD8-positive subsets without diagnostic phenotypic aberrancy. There is no discrete population of [id number] blasts identified. See comment. Comment: The overall findings show a polytypic B-cell population and a population of T cells without diagnostic immunophenotypic aberrancy, findings compatible with a reactive lymphoid population. However, correlation with clinical and morphologic findings ([id number]) is recommended as a negative flow cytometric evaluation does not fully exclude the possibility of a neoplastic process. If the patient's lymphadenopathy progresses or fails to resolve in a clinically appropriate fashion, and if clinical concern for neoplasia at this site exists, additional sampling should be considered, as clinically indicated. Please note that myeloid disorders cannot be reliably excluded by flow cytometry. Clinical correlation recommended. SPECIMEN: Right inguinal lymph node, core biopsy ([id number]) VIABILITY: 88.4% TOTAL CELL YIELD: 0.4x106/mL IMMUNOPHENOTYPIC FINDINGS: Lymphocytes are 97.3% of total. T cells are 86.1% of total (88.5% of cells in lymphocyte gate) with no aberrant phenotype, CD4:CD8= 5.9. B cells are 9.5% of total (9.8% of cells in lymphocyte gate) and are polytypic (kappa:lambda ratio = 1.8). The B cells show no significant expression of CD5, CD10, or CD38 and show no overexpression of CD200. Granulocytes are 1.4% of total and monocytic cells are 0.4% of total. There is no significant CD34 positive blast population seen. REVIEW OF PEREZ-STAINED CYTOSPIN: The cytospin shows mainly small lymphocytes and degenerated cells. There are occasional mast cells and macrophages noted. Many erythrocytes are present. Antibodies (17 markers): CD2, CD3, CD4, CD5, CD7, CD8, CD10, CD19, CD20, CD34, CD38, CD45, CD56, CD200, [place], Lambda, TCR gamma-delta. 05/02/2025 9:52 AM EDT [facility] Disclaimer This test was developed and its performance characteristics determined by [facility]. It has not been cleared or approved by U.S. Food and Drug Administration. The FDA does not require this test to go through premarket FDA review. This test is used for clinical purposes. It should not be regarded as investigational or for research. This laboratory is certified under Clinical Laboratory Improvement Amendments of 1988 (CLIA) as qualified to perform high complexity clinical laboratory testing. 05/02/2025 9:52 AM EDT [facility] Tissue Lymph node specimen / Unknown 04/30/2025 3:15 PM EDT 05/01/2025 7:39 AM EDT us Zayra Cuevas MD LAB BLOOD ORDERABLES Fi nal Result [facility] [address] [place] [address], [place] [phone] * Tissue exam (04/30/2025 3:15 PM EDT) Final Diagnosis A. Lymph node, right inguinal, core biopsy: - Lymph node with nonspecific reactive changes. - Flow cytometric evaluation shows no monotypic B-cell population and no aberrant T-cell population. (See below and separate flow cytometry report ([id number]) for details.) Note: The flow cytometric and support interpretation as a reactive lymphoid population. The morphologic changes are not specific with regard to etiology but are also compatible with reactive lymph node changes. However, clinical relation and follow-up is recommended. If the patient's lymphadenopathy progresses or fails to resolve in an appropriate fashion and if clinical concern for a neoplastic process at this site exists, additional sampling should be considered (as clinically indicated). B. Labeled right inguinal fatty tissue , biopsy: - Minute fragments of mature adipose tissue. Lymph node, right inguinal, flow cytometry (performed at [facility] ([place], [place])): No monotypic B cell population identified. Most of the lymphocytes are CD3-positive T cells including CD4-positive and CD8-positive subsets without diagnostic phenotypic aberrancy. There is no discrete population of [id number]-[id number] blasts identified. SPECIMEN: Right inguinal lymph node, core biopsy VIABILITY: 88.4% TOTAL CELL YIELD: 0.4x106/mL IMMUNOPHENOTYPIC FINDINGS: Lymphocytes are 97.3% of total. T cells are 86.1% of total (88.5% of cells in lymphocyte gate) with no aberrant phenotype, CD4:CD8= 5.9. B cells are 9.5% of total (9.8% of cells in lymphocyte gate) and are polytypic (kappa:lambda ratio = 1.8). The B cells show no significant expression of CD5, CD10, or CD38 and show no overexpression of CD200. Granulocytes are 1.4% of total and monocytic cells are 0.4% of total. There is no significant CD34 positive blast population seen. REVIEW OF PEREZ-STAINED CYTOSPIN: The cytospin shows mainly small lymphocytes and degenerated cells. There are occasional mast cells and macrophages noted. Many erythrocytes are present. Antibodies (17 markers): CD2, CD3, CD4, CD5, CD7, CD8, CD10, CD19, CD20, CD34, CD38, CD45, CD56, CD200, [place], Lambda, TCR gamma-delta. 05/02/2025 9:59 AM EDT [facility] Gross Description A. Lymph Node, right inguinal: Labeled right inguinal lymph node . Received in formalin are two irregular disrupted pink-yellow soft tissue cores, each measuring approximately 0.5 x 0.1 cm, which are wrapped in paper and submitted in toto in two cassettes, one piece each, x 2 with 15 unstained slides cut at 3 m between levels. Also received with the specimen is an additional soft tissue core in RPMI which held for potential future flow cytometry pending review of H&E slides. B. Other, right inguinal fatty tissue: Labeled right inguinal fatty tissue . Received in formalin are four disrupted wispy possible cores of adipose tissue, ranging from 0.2 by less than 0.1 cm to 0.5 by less than 0.1 cm, which are wrapped in paper and submitted in toto in two cassettes, two pieces each, x 2 with 10 unstained slides between levels. MINDI 05/02/2025 9:59 AM EDT [facility] Disclaimer Unless otherwise specified, all tissue is 10% NB formalin fixed and paraffin embedded. 05/02/2025 9:59 AM EDT [facility] Tissue Lymph node specimen / Unknown 04/30/2025 3:15 PM EDT 04/30/2025 3:52 PM EDT Tissue specimen (specimen) Topography unknown / Unknown 04/30/2025 3:23 PM EDT 04/30/2025 3:52 PM EDT us Zayra Cuevas MD LAB PATHOLOGY ORDERABLE S Final Result [facility] [address] [place] [address], * US Abdomen Limited (03/23/2025 8:04 AM EDT) Anatomical Region Laterality Modality Body Ultrasound 03/23/2025 11:5 1 AM EDT Impressions 03/23/2025 11:55 AM EDT The previously demonstrated fluid collection following hernia repair has resolved. No convincing bowel hernia. No residual fluid collection. Altered echotexture is nonspecific and could be related to previous surgery -------- FINAL REPORT -------- Dictated By: Mark Oneil Dictated Date: 03/23/2025 11:51 ET Assigned Physician: Mark Oneil Reviewed and Electronically Signed By: Mark Oneil Signed Date: 03/23/2025 11:55 ET Workstation ID: [id number] Transcribed By: Self Edit Transcribed Date: 03/23/2025 11:51 ET Narrative 03/23/2025 11:55 AM EDT EXAMINATION: US , RIGHT INGUINAL SOFT TISSUES CLINICAL INFORMATION: Previous right inguinal hernia repair. Assess for seroma. Evaluate for interval changes COMPARISON: Portions of previous 02/04/25 TECHNIQUE: High-frequency linear transducer examination with attention to the area of clinical concern The study targeted the right inguinal soft tissues. FINDINGS: QUALITY: Adequate The previously demonstrated fluid collection in the right inguinal area has resolved. There is some heterogeneous altered echotexture but no residual drainable collection. No convincing peristalsing bowel. Some fullness in the superficial soft tissues is nonspecific. Procedure Note Mark Oneil MD - 03/23/2025 EXAMINATION: US , RIGHT INGUINAL SOFT TISSUES CLINICAL INFORMATION: Previous right inguinal hernia repair. Assess for seroma. Evaluate forinterval changes COMPARISON: Portions of previous 02/04/25 TECHNIQUE: High-frequency linear transducer examination with attention to the area ofclinical concern The study targeted the right inguinal soft tissues. FINDINGS: QUALITY: Adequate The previously demonstrated fluid collection in the right inguinal areahas resolved. There is some heterogeneous altered echotexture but no residual drainablecollection. No convincing peristalsing bowel. Some fullness in the superficial soft tissues is nonspecific. IMPRESSION: The previously demonstrated fluid collection following hernia repair hasresolved. No convincing bowel hernia. No residual fluid collection. Altered echotexture is nonspecific and could be related to previoussurgery -------- FINAL REPORT -------- Dictated By: Mark Oneil Dictated Date: 03/23/2025 11:51 ET Assigned Physician: Mark Oneil Reviewed and Electronically Signed By: Mark Oneil Signed Date: 03/23/2025 11:55 ET Workstation ID: [id number] Transcribed By: Self Edit Transcribed Date: 03/23/2025 11:51 ET Zayra Cuevas MD IMG PROCEDURES Final Result from Last 3 Months Insurance MEDICAID - [place] Care Teams Damascener Relationship Specialty Start Date End Date Nai Menendez MD [address] [place] [address] PCP - General Internal Medicine 12/14/24
[2025-05-17 18:17] LABS: Free T4 (Free Thyroxine) 0.94 ng/dL (0.71-1.85); Thyroid Stimulating Hormone 0.31 uIU/mL (0.32-4.0)
== END 2025-05-17 14:03 | disposition home or self-care (01) ==
LOC: HO.CHCLDS 14:02
PROVIDERS: Visit Provider Student in an Organized Health Care Education/Training Program
DX: E05.90 Thyrotoxicosis, unspecified without thyrotoxic crisis or storm (principal)
CPT/HCPCS: 36415; 83520; 84439; 84443; 84480; 86376

== ENCOUNTER 2025-05-24 07:58 | Outpatient (AMB) | payer MEDICAID, SELFPAY ==
[2025-05-24 08:01] VITALS: BP 110/74; PULSE 83; O2SAT 94; BMI 24.2
--- NOTE | 2025-05-24 08:01 | MHC.OFFVIS ---
Vital Signs 05/24/25 08:01 Height 5 ft 6 in Weight 150 lb 2.157 oz BMI 24.2 BP 110/74 Blood Pressure Location Lt brachial Position Sitting Pulse 83 Pulse Source Pulse Oximeter Pulse Oximetry (%) 94 Oxygen Delivery Method Room Air Intake Visit Reasons: Low TSH Intake Note: Patient present today for Low TSH office visit. Pathology Technician Required: No Accompanied by: Self / Same As Patient Allergies No Known Allergies Allergy (Verified 05/24/25 08:05) Medication List - Last Reconciled 05/24/25 by Virginie Duarte MD diclofenac sodium 1% topical TID fentanyl 12 mcg/hr 1 patch transdermal Q72H gabapentin 300 mg PO TID lidocaine 5% 1 patch topical DAILY lisinopril 20 mg PO DAILY mirtazapine 7.5 mg PO BEDTIME omeprazole 20 mg PO BID sumatriptan succinate mg PO DAILY tadalafil (Cialis) 10 mg PO DAILY PRN 30 days HPI Comments Details: 54-year-old male coming in today for follow up of subclinical hyperthyroidism. HPI from prior visit Lab workup from 06/13/2024 showed low TSH of 0.16 with normal free T4 of 0.96. Was checked because of tremors that have been worsening for a couple of years. Denies any exposure to contrast. No preceding viral illness. He has also been having epsiodes of chest discomfort and has been worked up by a embedder. Chest discomfort starts in jaw and radiates down. also endorses palpitations. Workup reportedly has been unremarkable. No heat or cold intolerance. gets loose stools but he says this has been going on for 3 months. no diaphoresis. Feels tired. No skin or hair changes. ? Patient denies any difficulty swallowing, pain on swallowing. Feels voice is more raspy. difficulty breathing with walking but not at rest. Patient denies any history of childhood neck radiation. Denies having ever used lithium, amiodarone or biotin supplements. Patient denies any family history of thyroid cancer . Mother has thyroid disease. sister has thyroid disease. Maternal grandmother has some sort of cancer. No fractures recently. Broken humerus at the age of 12 years by slipping from a slide. Repeat lab workup from June 2024 showed all of his labs had normalized with normal TSH of 0.36 with free T4 of 0.84. TSI was undetectable. He also underwent thyroid ultrasound in July 2024, I reviewed the images myself and no nodules were seen, the gland is slightly hypervascular but homogeneous. Interval history 02/20/2025: TSH again lower down to 0.22, free T4 0.98, total T3 104 05/17/2025: TSH improved but still low at 0.31, free T4 0.94, total T3 101, TPO antibodies less than 1, TSH receptor antibody 1.19 which is also low He continues to have the tremors. Still continues to have non specific atypical chest pain, unremarkable work up cardiology thought to be unrelated to cardiac etiology . Weight stable, only 5 lbs lost since 3 months Physical exam General: sitting comfortably in bed in no acute distress HEENT: normocephalic/atraumatic, EOM intact, moist oral mucosa Neck: supple, symmetrical, no thyromegaly , no dorsocervical or supraclavicular fat pads Cardiac: normal heart sounds Pulm: normal breath sounds B/L, no added breath sounds Abd: not distended, no tenderness Extremities: no edema, no signs of myxedema, does have a mild tremor Neuro: AAO x3, Speech: normal, no facial droop, moving all 4 extremities Skin: no rash Laboratory Tests 02/02/24 06/13/24 10:43 09:55 TSH 0.16 L 0.16 L Free T4 0.93 0.96 Laboratory Tests 06/13/24 06/28/24 09:55 09:17 TSH 0.16 L 0.36 Free T4 0.96 0.84 Total T3 104 Thyroid Stim Immunoglob <89 Laboratory Tests 02/20/25 05/17/25 11:12 14:03 TSH 0.22 L 0.31 L Free T4 0.98 0.94 Total T3 104 101 Thyroid Peroxidase Ab <1 TSH Receptor Ab 1.19 US THYROID 07/04/24 CLINICAL INFORMATION: Low TSH. COMPARISON: None available. TECHNIQUE: Linear transducer grayscale and color Doppler examination with attention to the region of the thyroid. FINDINGS: SIZE: Measurements of the thyroid lobes and nodules are given in sagittal, anteroposterior and transverse dimensions respectively. Right Thyroid Lobe: 5.6 x 1.3 x 2.0 cm, volume 7.6 mL. Parenchyma: The gland echotexture is homogeneous. Thyroid vascularity is increased. Left Thyroid Lobe: 5.0 x 1.2 x 2.2 cm, volume 6.9 mL. Parenchyma: The gland echotexture is homogeneous. Thyroid vascularity is increased. Isthmus: 0.6 cm in maximum AP dimension. No focal thyroid nodule is seen. NODES: No lymphadenopathy is seen in the tissue surrounding the thyroid gland. US/US thyroid IMPRESSION: Normal-sized gland with hypervascularity and no nodule seen. [facility] Medical History Subclinical hyperthyroidism Palpitation Shortness of breath Chest pain Hernia No known health problems Surgical History Hx of hernia repair H/O knee surgery Family History Maternal Grandmother Heart problem Paternal Grandmother Heart problem Social History Alcohol intake: never Patient Tobacco Use Status: Never used Tobacco Current occupational status: unemployed Assessment & Plan Assessment & Plan (1) Subclinical hyperthyroidism: Code(s): E05.90 - Thyrotoxicosis, unspecified without thyrotoxic crisis or storm Category: Medical Plan: Patient with labs from 06/13/2024 that showed low TSH of 0.16 with normal free T4 of 0.96 , with similar labs from December 2023, who is also reporting significant symptoms with palpitations, tremors. But these are not worsening. Labs are consistent with subclinical hyperthyroidism and given significant symptoms of chest discomfort intermittently plus tremors that has been worsening with possible need for treatment needed further evaluation to figure out the etiology. TSI, TPO and TSH receptor antibodies was negative. Also repeat labs from late June 2024 showed normalization of TSH to 0.36. He also underwent thyroid ultrasound in July 2024 that did not show any discrete nodules, showed a hypervascular gland however homogeneous in appearance. He could possibly have underlying seronegative Graves disease. Though no goiter on exam, no orbitopathy to support the diagnosis. He is denying taking any exogenous supplementation. 02/20/2025: TSH again lower down to 0.22, free T4 0.98, total T3 104 05/17/2025: TSH improved but still low at 0.31, free T4 0.94, total T3 101 Blood work repeated in January and May 2025 as shown above, again consistent with subclinical hyperthyroidism. While he does have these nonspecific symptoms, I do not think they are related to his thyroid because he does not have that degree of thyroid dysfunction to cause symptoms. At this point we will keep an eye on his thyroid labs with repeat labs in 8 months prior to follow up. Plan: -ordered TSH, free T4, total T3, to be done prior to follow up in December 2025. -follow up in December 2025 -educated about worsening symptoms of hyperthyroidism and to reach out sooner if those occur. Plan see above Orders: Orders Thyroid Stimulating Hormone 12/17/25 E05.90 - Thyrotoxicosis, unspecified without thyrotoxic crisis or storm Free T4 (Free Thyroxine) 12/17/25 E05.90 - Thyrotoxicosis, unspecified without thyrotoxic crisis or storm Triiodothyronine T3 Total 12/17/25 E05.90 - Thyrotoxicosis, unspecified without thyrotoxic crisis or storm Patient Instructions: Do thyroid blood work 2 weeks prior to next follow up in December 2025 Orders are in IF in the interim you start losing an unexplained amount of drastic weight, develop severe anxiety, or excessive sweating , palpitations, worsening tremors you can reach out for a sooner appointment Coding Level of Care Code Est Pt Level 3 (48049) Diagnoses Subclinical hyperthyroidism E05.90
--- OUTSIDE RECORDS SUMMARY | 2025-05-24 08:01 | XMS_ITS ---
Author Organization [employer] Address [address] [facility] [address] [place] [address] Care Team Providers Care Simulation Technician Name Role Phone Nai Menendez MD Primary Care Provider +1 [phone] CM Complex Status:Enrolled (Active) Start date:02/23/2025 Enrollment date:03/20/2025 Enrollment reason:Referred by provider Overview Provider Referral from Clinician Krystal Owens I would like to refer Osei for care management. Yvrose has chronic pain and multiple chronic conditions. He is feeling overwhelmed managing it all by him self and is looking for support. He endorsed interest in [employer] services, resources for more affordable housing, and financial supports. I have referred him to OP therapy. Thanks Krystal Case Team Name Relationship Phone Marsha Martins RN(Responsible Staff) Registered Nurse [phone] Continued Care and Services Coordination
--- OUTSIDE RECORDS SUMMARY | 2025-05-24 08:01 | XMS_ITS | Clinical Summary ---
Author Organization [facility] Address [phone] Care Team Providers Care Plant Guide Name Role Phone Unavailable Primary Care Provider [...] 01/23/2022 Imm-Zoster, Recombinant (1 of 2) 01/23/2022 [id number] (3 - season) 2024 021, 03/06/2021 Alcohol and Drug Screen 11/01/2024 Depression Annual Screen 11/01/2024 Imm-Influenza (#1) 2025 [facility]
--- OUTSIDE RECORDS SUMMARY | 2025-05-24 08:01 | XMS_ITS | Clinical Summary ---
Author Organization [facility] Address [address] [place] [address] Phone Care Team Providers Care Health Care Manager Name Role Phone Nai Menendez MD Primary Care Provider [phone] [phone] Allergies No known active allergies Medications amLODIPine [...] - 04/30/2025 11:59 PM EDT Hospital Encounter [facility] Ultrasound [address] [place] [address] Right groin pain Discharge Disposition: Home or Self Care 04/16/2025 8:30 AM EDT Office Visit Bariatric Surgery [address] [address] Zayra Cuevas MD Right groin pain (Primary Dx); S/P laparoscopic hernia repair; Subcutaneous nodule 03/23/2025 7:41 AM EDT - 03/23/2025 11:59 PM EDT Hospital Encounter [facility] Ultrasound [address] [place] [address] Right groin pain Discharge Disposition: Home or Self Care 03/12/2025 9:30 AM EDT Office Visit [facility] [address] [address] Zayra Cuevas MD Right groin pain (Primary [...] Influencers of Health Screening 08/09/2024 Depression Screening 11/01/2024 Influenza Vaccine (#1) 2025 Hypertension/CHF/CAD Annual BMP [...] this topic Medical Devices Implanted Type Area Truck Trailer Final Inspector Device Identifier Shelf Expiration Date Model / Serial / Lot Mesh 3dmax Lght Lg 4.1x6.2 R 4.1x6.2in - Sn/A - [id number] Implanted:Qty: 1 on 01/18/2025 by Zayra Cuevas MD at [facility] Surgical Mesh Sling Implants Right: Abdomen CR BARD - DAVOL DIV 04/28/2029 [id number] / N/A / [id number] Procedures Procedure Name Priority Date/Time Associated Diagnosis [...] Signed Date: 04/30/2025 15:50 ET Workstation ID: [id number] Transcribed By: Self Edit Transcribed Date: 04/30/2025 [...] Signed Date: 04/30/2025 15:50 ET Workstation ID: [id number] Transcribed By: Self Edit Transcribed Date: 04/30/2025 15:46 ET us Zayra Cuevas MD [facility] US PROCEDURES Final Result * Flow cytometry (04/30/2025 3:15 PM EDT) Flow Cytometry Interpretation Lymph node, right inguinal, flow cytometry: No monotypic B cell population identified. Most of the lymphocytes are CD3-positive T cells including CD4-positive and CD8-positive subsets without diagnostic phenotypic aberrancy. There is no discrete population of PO85-tuvisdms blasts identified. See comment. Comment: The overall findings show a polytypic B-cell population and a population of T cells without diagnostic immunophenotypic aberrancy, findings compatible with a reactive lymphoid population. However, correlation with clinical and morphologic findings ([id number]) is recommended as a negative flow cytometric [...] SPECIMEN: Right inguinal lymph node, core biopsy ([id number]) VIABILITY: 88.4% TOTAL CELL YIELD: 0.4x106/mL IMMUNOPHENOTYPIC [...] CD19, CD20, CD34, CD38, CD45, CD56, CD200, [place], Lambda, TCR gamma-delta. 05/02/2025 9:52 AM EDT [facility] Disclaimer This test was developed and [...] clinical laboratory testing. 05/02/2025 9:52 AM EDT [facility] Tissue Lymph node specimen / Unknown 04/30/2025 3:15 PM EDT 05/01/2025 7:39 AM EDT us Zayra Cuevas MD LAB BLOOD ORDERABLES Fi nal Result [facility] [address] [place] [address], [place] [phone] * Tissue exam (04/30/2025 3:15 PM EDT) Final Diagnosis A. Lymph node, right inguinal, core biopsy: - Lymph node with nonspecific reactive changes. - Flow cytometric evaluation shows no monotypic B-cell population and no aberrant T-cell population. (See below and separate flow cytometry report ([id number]) for details.) Note: The flow cytometric [...] node, right inguinal, flow cytometry (performed at [facility] ([place], [place])): No monotypic B cell population identified. Most of the lymphocytes are CD3-positive T cells including CD4-positive and CD8-positive subsets without diagnostic phenotypic aberrancy. There is no discrete population of [id number]-[id number] blasts identified. SPECIMEN: Right inguinal lymph node, [...] CD19, CD20, CD34, CD38, CD45, CD56, CD200, [place], Lambda, TCR gamma-delta. 05/02/2025 9:59 AM EDT [facility] Gross Description A. Lymph Node, [...] between levels. MINDI 05/02/2025 9:59 AM EDT [facility] Disclaimer Unless otherwise specified, all tissue is 10% NB formalin fixed and paraffin embedded. 05/02/2025 9:59 AM EDT [facility] Tissue Lymph node specimen / Unknown 04/30/2025 3:15 PM EDT 04/30/2025 3:52 PM EDT Tissue specimen (specimen) Topography unknown / Unknown 04/30/2025 3:23 PM EDT 04/30/2025 3:52 PM EDT us Zayra Cuevas MD LAB PATHOLOGY ORDERABLE S Final Result [facility] [address] [place] [address], * US Abdomen Limited (03/23/2025 8:04 AM [...] Signed Date: 03/23/2025 11:55 ET Workstation ID: [id number] Transcribed By: Self Edit Transcribed Date: 03/23/2025 [...] Signed Date: 03/23/2025 11:55 ET Workstation ID: [id number] Transcribed By: Self Edit Transcribed Date: 03/23/2025 11:51 ET Zayra Cuevas MD IMG PROCEDURES Final Result from Last 3 Months Insurance MEDICAID - [place] Care Teams Health Care Manager Relationship Specialty Start Date End Date Nai Menendez MD [address] [place] [address] PCP - General Internal Medicine 12/14/24
== END 2025-05-24 08:19 | disposition home or self-care (01) ==
LOC: HO.ENCR 07:59
PROVIDERS: PCP Pediatrics; Visit Provider Student in an Organized Health Care Education/Training Program
DX: E05.90 Thyrotoxicosis, unspecified without thyrotoxic crisis or storm (principal)
CPT/HCPCS: 99213

== ENCOUNTER → 2025-05-24 07:58 | Outpatient (BNVA) | payer MEDICAID, SELFPAY | PROVIDERS: PCP Pediatrics; Visit Provider Student in an Organized Health Care Education/Training Program | DX: E05.90 Thyrotoxicosis, unspecified without thyrotoxic crisis or storm (principal); R07.89 Other chest pain | CPT/HCPCS: 99212 ==

== ENCOUNTER 2025-05-25 07:57 | Outpatient (REF) | payer MEDICAID, SELFPAY ==
--- NOTE | ~2025-05-25 | XR_ITS ---
EXAMINATION: XR BILATERAL HIPS WITH AP PELVIS CLINICAL INFORMATION: M25.559 - Pain in unspecified hip COMPARISON: 01/09/2025. TECHNIQUE: AP and frog-leg lateral views of each hip and an AP view of the pelvis. FINDINGS: No fracture, dislocation, or suspicious bone lesion. Hip joint spaces are symmetric with minimal superior narrowing. No significant arthrosis otherwise, and no significant periarticular spurring or sclerosis. Femoral heads are normal in contour without evidence of AVN. Normal acetabular coverage bilaterally. The SI joints have a normal appearance. The sacrum is intact. Soft tissues appear normal. There are herniorrhaphy clips in the right lower abdomen and pelvis. XR/XR hips SHANTE min 3V IMPRESSION: 1. Minimal symmetric superior joint space narrowing bilateral hips. Otherwise normal examination. Electronically signed by: Chepe Cruz MD 05/25/2025 09:13 AM EDT
--- NOTE | ~2025-05-25 | XR_ITS ---
EXAMINATION: XR LUMBOSACRAL SPINE CLINICAL INFORMATION: M54.9 - Dorsalgia, unspecified COMPARISON: Correlated to CT abdomen and pelvis dated February 09, 2024. TECHNIQUE: AP and lateral views FINDINGS: Levoconvex curvature of the lumbar spine. Mild endplate sclerosis at multiple levels. 10% volume loss of the superior endplate L5 and to a lesser extent L4 likely old. No acute cortical disruption or malalignment. No lytic or blastic lesions. Spina bifida occulta S1, congenital. XR/XR lumbar spine 2-3V IMPRESSION: Mild multilevel spondylosis and mild scoliosis. Electronically signed by: Jasen Wolf MD 05/25/2025 09:13 AM EDT
== END 2025-05-25 07:58 | disposition home or self-care (01) ==
LOC: HO.HOSX 07:57
PROVIDERS: PCP Pediatrics; Visit Provider Physical Medicine & Rehabilitation
DX: M54.42 Lumbago with sciatica, left side (principal); G89.29 Other chronic pain; M25.552 Pain in left hip; Z79.899 Other long term (current) drug therapy
CPT/HCPCS: 72100; 73522; 99212

== ENCOUNTER 2025-05-25 07:57 | Outpatient (AMB) | payer MEDICAID, SELFPAY ==
--- OUTSIDE RECORDS SUMMARY | 2025-05-25 07:59 | XMS_ITS | Clinical Summary ---
Author Organization [address] [facility] Address [address] [place] [address] Phone Care Team Providers Care Whiteprinting Machine Operator Name Role Phone Nai Menendez MD Primary Care Provider [phone] Allergies No known active allergies Medications amLODIPine [...] 04/30/2025 11:59 PM EDT Hospital Encounter [facility] Ultrasound [address] [place] [address] Right groin pain Discharge Disposition: Home or Self Care 04/16/2025 8:30 AM EDT Office Visit Bariatric Surgery [address] [address] Zayra Cuevas MD Right groin pain (Primary Dx); S/P laparoscopic hernia repair; Subcutaneous nodule 03/23/2025 7:41 AM EDT - 03/23/2025 11:59 PM EDT Hospital Encounter [facility] Ultrasound [address] [place] [address] Right groin pain Discharge Disposition: Home or Self Care 03/12/2025 9:30 AM EDT Office Visit [facility] Surgery [address] [address] Zayra Cuevas MD Right groin pain (Primary [...] this topic Medical Devices Implanted Type Area Senior Cyber Intelligence Analyst Device Identifier Shelf Expiration Date Model / Serial / Lot Mesh 3dmax Lght Lg 4.1x6.2 R 4.1x6.2in - Sn/A - [id number] Implanted:Qty: 1 on 01/18/2025 by Zayra Cuevas MD at [facility] Surgical Mesh Sling Implants Right: Abdomen CR BARD - DAVOL DIV 04/28/2029 [id number] / N/A / [id number] Procedures Procedure Name Priority Date/Time Associated Diagnosis [...] Signed Date: 04/30/2025 15:50 ET Workstation ID: [id number] Transcribed By: Self Edit Transcribed Date: 04/30/2025 [...] Signed Date: 04/30/2025 15:50 ET Workstation ID: [id number] Transcribed By: Self Edit Transcribed Date: 04/30/2025 15:46 ET us Zayra Cuevas MD [facility] US PROCEDURES Final Result * Flow cytometry (04/30/2025 3:15 PM EDT) Flow Cytometry Interpretation Lymph node, right inguinal, flow cytometry: No monotypic B cell population identified. Most of the lymphocytes are CD3-positive T cells including CD4-positive and CD8-positive subsets without diagnostic phenotypic aberrancy. There is no discrete population of [id number] blasts identified. See comment. Comment: The overall findings show a polytypic B-cell population and a population of T cells without diagnostic immunophenotypic aberrancy, findings compatible with a reactive lymphoid population. However, correlation with clinical and morphologic findings ([id number]) is recommended as a negative flow cytometric [...] SPECIMEN: Right inguinal lymph node, core biopsy ([id number]) VIABILITY: 88.4% TOTAL CELL YIELD: 0.4x106/mL IMMUNOPHENOTYPIC [...] CD19, CD20, CD34, CD38, CD45, CD56, CD200, Sandborn, Lambda, TCR gamma-delta. 05/02/2025 9:52 AM EDT [facility] Disclaimer This test was developed and [...] clinical laboratory testing. 05/02/2025 9:52 AM EDT [facility] Tissue Lymph node specimen / Unknown 04/30/2025 3:15 PM EDT 05/01/2025 7:39 AM EDT us Zayra Cuevas MD LAB BLOOD ORDERABLES Fi nal Result [facility] [address] [place] [address], [place] [phone] * Tissue exam (04/30/2025 3:15 PM EDT) Final Diagnosis A. Lymph node, right inguinal, core biopsy: - Lymph node with nonspecific reactive changes. - Flow cytometric evaluation shows no monotypic B-cell population and no aberrant T-cell population. (See below and separate flow cytometry report ([id number]) for details.) Note: The flow cytometric [...] node, right inguinal, flow cytometry (performed at [facility] ([place], [place])): No monotypic B cell population identified. Most of the lymphocytes are CD3-positive T cells including CD4-positive and CD8-positive subsets without diagnostic phenotypic aberrancy. There is no discrete population of [id number] blasts identified. SPECIMEN: Right inguinal lymph node, [...] CD19, CD20, CD34, CD38, CD45, CD56, CD200, Sandborn, Lambda, TCR gamma-delta. 05/02/2025 9:59 AM EDT [facility] Gross Description A. Lymph Node, right [...] between levels. MINDI 05/02/2025 9:59 AM EDT [facility] Disclaimer Unless otherwise specified, all tissue is 10% NB formalin fixed and paraffin embedded. 05/02/2025 9:59 AM EDT [facility] Tissue Lymph node specimen / Unknown 04/30/2025 3:15 PM EDT 04/30/2025 3:52 PM EDT Tissue specimen (specimen) Topography unknown / Unknown 04/30/2025 3:23 PM EDT 04/30/2025 3:52 PM EDT us Zayra Cuevas MD LAB PATHOLOGY ORDERABLE S Final Result [facility] [address] [place] [address], * US Abdomen Limited (03/23/2025 8:04 AM [...] Signed Date: 03/23/2025 11:55 ET Workstation ID: [id number] Transcribed By: Self Edit Transcribed Date: 03/23/2025 [...] Signed Date: 03/23/2025 11:55 ET Workstation ID: [id number] Transcribed By: Self Edit Transcribed Date: 03/23/2025 11:51 ET Zayra Cuevas MD IMG PROCEDURES Final Result from Last 3 Months Insurance MEDICA[place] - [place] Care Teams Whiteprinting Machine Operator Relationship Specialty Start Date End Date Nai Menendez MD [address] [place] [address] PCP - General Internal Medicine 12/14/24
--- OUTSIDE RECORDS SUMMARY | 2025-05-25 07:59 | XMS_ITS | Clinical Summary ---
Author Organization [facility] Address [address] [place] [address] Care Team Providers Care Chip Silo Tender Name Role Phone Unavailable Primary Care Provider [...] 01/23/2022 Imm-Zoster, Recombinant (1 of 2) 01/23/2022 [id number] (3 - season) 2024 021, 03/06/2021 Alcohol and Drug Screen 11/01/2024 Depression Annual Screen 11/01/2024 Imm-Influenza (#1) 2025 Insurance [facility]
--- OUTSIDE RECORDS SUMMARY | 2025-05-25 07:59 | XMS_ITS ---
Author Organization [employer] Address [address] [facility] [address] [place] [address] Care Team Providers Care Rug Weaver Name Role Phone Nai Menendez MD Primary Care Provider [phone] CM Complex Status:Enrolled (Active) Start date:02/23/2025 Enrollment date:03/20/2025 Enrollment reason:Referred by provider Overview Provider Referral from Clinician Krystal Owens I would like to refer Osei for care management. Yvrose has chronic pain and multiple chronic conditions. He is feeling overwhelmed managing it all by him self and is looking for support. He endorsed interest in [employer] services, resources for more affordable housing, and financial supports. I have referred him to OP therapy. Thanks Krystal Case Team Name Relationship Phone Marsha Martins RN(Responsible Staff) Registered Nurse [phone] Continued Care and Services Coordination
[2025-05-25 08:16] VITALS: BMI 24.2
--- NOTE | 2025-05-25 08:16 | A.OFFVIS_ITS ---
Vital Signs 05/25/25 08:16 Height 5 ft 6 in Weight 150 lb BMI 24.2 Intake Visit Reasons: OV- Lower back pain Intake Note: Osei is a 55 year old male who presents today for a follow up of the Lower back pain WC injury on 09/22/22. Patient was seen by [facility] 02/20/25 for his MRI and received an injection. Patient states no relief from the injection. He added that the pain radiates down the left leg, mild numbness and tingling in the knee. ROM is limited due to the pain, uses cane for mobility as needed. Allergies No Known Allergies Allergy (Verified 05/25/25 08:21) Medication List - Last Reconciled 05/25/25 by Nikky Okeefe MD diclofenac sodium 1% topical TID fentanyl 12 mcg/hr 1 patch transdermal Q72H gabapentin 300 mg PO TID lidocaine 5% 1 patch topical DAILY lisinopril 20 mg PO DAILY mirtazapine 7.5 mg PO BEDTIME omeprazole 20 mg PO BID sumatriptan succinate mg PO DAILY tadalafil (Cialis) 10 mg PO DAILY PRN 30 days tramadol mg PO HPI Comments Details: WC injury on 09/22/22. Patient seen by [facility] for left hip pain. Per their last note, findings of labral tear was addressed and discussed with patient. Ophelia ya, question component of pain coming from lumbar spine, therefore referred to physiatry for further evaluation. He's had lumbar epidural injections, 2 years ago, at [facility]. It did not help more than a week. He does not remember much. Also had left hip injections? SI joint does not sound familiar. Last PT 2023 but did not have relief. Pain medications including Fentanyl (given due to recent abdominal hernia surgery at [facility]). Lower back pain, different from the left hip/buttock pain. Axial but towards left. Sometimes goes down to left leg. Sometimes numbness on both legs, when he is sitting down but not with walking. He uses cane and limps. Needle sensation on bottom of both feet. PCP says high risk for DM. Records from [facility] reviewed. 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 MRI at that time showed degenerative changes L4-5 and L5-S1. With posterior disc protrusion L5-S1. They recommended trial of left L5 TFESI. After injection, patient reported 30% improvement. I think sometime in the past, patient also had GT bursa injection and intra-articular hip injection. They had then recommended interlaminar epidural approach L5-S1. After which patient reported significant improvement of his pain. But pain on the left side continued. MRI done at [facility] 02/09/2023 reported moderate facet arthropathy L4-5 with a mild disc bulge. No central stenosis. Inferior foraminal disc protrusion on the left without nerve root impingement. Posterior disc protrusion at L5-S1 without central stenosis or foraminal narrowing. He is still currently under WC. Last PT more than a year ago. The pain is the across the back. 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 If he stands, his whole weight is on the back. He did have left knee surgery at [facility] and was told to have torn labrum on left hip but not operated on. Knee pain is not always painful. His pain is more on left lateral hip. [facility] Medical History Subclinical hyperthyroidism Palpitation Shortness of breath Chest pain Hernia No known health problems Surgical History Hx of hernia repair H/O knee surgery Family History Maternal Grandmother Heart problem Paternal Grandmother Heart problem Social History Alcohol intake: never Patient Tobacco Use Status: Never used Tobacco Current occupational status: unemployed Physical Exam Vital Signs: BMI result Body Mass Index 24.2 Constitutional: Patient appears to be in no acute distress, well nourished and well developed. Patient was appropriately conversant and oriented. Good historian. MSK: No specific abnormalities found on inspection of the spine and all extremities. He maintains the tenderness is over lower lumbar paraspinals and spinous processes. Denied tenderness over SI joint or piriformis or GT. But indicated would use relieve pain lateral gluteus left side. Lumbar ROM was limited due to pain. Neurological: Carroll?s negative bilaterally. Babinski was down going bilaterally. Clonus was negative. Antalgic gait today. Results Reviewed Results Reviewed: Records as above. Ordering Physician: Amairani Ellison PA-C Date of Service: 01/09/25 Procedure(s): XR hip LT min 2V Accession Number(s): [id number] cc: Amairani Ellison PA-C~ EXAMINATION: XR HIP 2 OR MORE VIEWS LEFT HISTORY: M25.559 - Pain in unspecified hip COMPARISON: Comparison is made with the prior examination dated 10/14/2022. FINDINGS: A single AP view of the pelvis and an additional view of the left hip are submitted. Osseous mineralization is normal. There is no fracture or dislocation. There is mild superior joint space narrowing. The soft tissues are unremarkable. XR/XR hip LT min 2V IMPRESSION: Mild superior joint space narrowing. Assessment & Plan Assessment & Plan (1) Chronic lower back pain: Code(s): M54.50 - Low back pain, unspecified; G89.29 - Other chronic pain Category: Medical Qualifiers: Back pain laterality: left Sciatica presence: with sciatica Sciatica laterality: sciatica of left side Qualified Code(s): M54.42 - Lumbago with sciatica, left side; G89.29 - Other chronic pain (2) Left hip pain: Code(s): M25.552 - Pain in left hip Category: Medical Plan Records from [facility] and previous MRI 2 years ago reviewed, as above. Apparently he also had left hip injury, possibly labral tear, per patient report. I do not have medical records of that or was aware of that. Definitely a left hip pathology would contribute/affect lower back pain. Discussed with patient that etiology for lower back/hip pain 2 years ago may not be the same etiology as of now. The way he describes his pain and movements suggest to me that there is a lot of muscular spasms. Referring patient to physical therapy for both lower back and left hip pain. Work on range of motion. Work on preventing further muscle spasms. Repeating lumbar and left hip x-rays today. We will obtain records from [facility]. Assessment and plan discussed with patient, and patient was agreeable. All questions were answered thoroughly. Follow up 6 weeks. Nikky Okeefe MD, TEETEE Board Certified, [place] Board of [employer] Medicine and Rehabilitation (ABPMR) Board Certified, [place] Board of Electrodiagnostic Medicine (ABEM) Orders: Orders XR lumbar spine 2-3V Today G89.29 - Other chronic pain, M25.552 - Pain in left hip, M54.42 - Lumbago with sciatica, left side, M54.9 - Dorsalgia, unspecified XR hips SHANTE min 3V Today M25.559 - Pain in unspecified hip PT Evaluation and Treatment Today G89.29 - Other chronic pain, M25.552 - Pain in left hip, M54.42 - Lumbago with sciatica, left side Coding Level of Care Code Est Pt Level 4 (07912) Complex EM visit Add On G2211 Diagnoses Chronic left-sided low back pain with left-sided sciatica M54.42; G89.29 Back pain laterality: left Sciatica presence: with sciatica Sciatica laterality: sciatica of left side Left hip pain M25.552
== END 2025-05-25 09:56 | disposition home or self-care (01) ==
LOC: HO.HOS 07:57
PROVIDERS: PCP Pediatrics; Visit Provider Physical Medicine & Rehabilitation
DX: M54.42 Lumbago with sciatica, left side (principal); G89.29 Other chronic pain; M25.552 Pain in left hip
CPT/HCPCS: 99214

== ENCOUNTER → 2025-05-25 08:50 | Outpatient (BNV) | payer MEDICAID, SELFPAY | PROVIDERS: PCP Pediatrics; Visit Provider Radiology Diagnostic Radiology | DX: M25.551 Pain in right hip (principal); M25.552 Pain in left hip; M54.50 Low back pain, unspecified | CPT/HCPCS: 72100; 73522 ==

== ENCOUNTER 2025-07-06 08:19 | Outpatient (AMB) | payer MEDICAID, SELFPAY ==
[2025-07-06 08:21] VITALS: BMI 24.2
--- NOTE | 2025-07-06 08:21 | A.OFFVIS_ITS ---
Vital Signs 07/06/25 08:21 Height 5 ft 6 in Weight 150 lb BMI 24.2 Intake Visit Reasons: OV- Lower back pain Intake Note: Osei is a 55 year old male who presents today as a follow up for his lower back pain. At today's visit he states that no changes to report at this time. He states that his lower back into the left hip has a constant pressure that is now radiating down to his foot. At last visit on 05/25/25 we ordered Physical therapy but he did not attend, states that 'he didn't know . Allergies No Known Allergies Allergy (Verified 07/06/25 08:26) Medication List - Last Reconciled 07/06/25 by Nikky Okeefe MD diclofenac sodium 1% topical TID fentanyl 12 mcg/hr 1 patch transdermal Q72H gabapentin 300 mg PO TID lidocaine 5% 1 patch topical DAILY lisinopril 20 mg PO DAILY magnesium oxide 400 mg PO DAILY mirtazapine 7.5 mg PO BEDTIME omeprazole 20 mg PO BID riboflavin (vitamin B2) 400 mg PO DAILY sumatriptan succinate mg PO DAILY tadalafil (Cialis) 10 mg PO DAILY PRN 30 days tramadol mg PO HPI Comments Details: WC injury on 09/22/22. Patient seen by [facility] for left hip pain. Per their last note, findings of labral tear was addressed and discussed with patient. However, question component of pain coming from lumbar spine, therefore referred to physiatry for further evaluation. He's had lumbar epidural injections, 2 years ago, at [facility]. It did not help more than a week. He does not remember much. Also had left hip injections? SI joint does not sound familiar. Last PT 2023 but did not have relief. Pain medications including Fentanyl (given due to recent abdominal hernia surgery at [facility]). Lower back pain, different from the left hip/buttock pain. Axial but towards left. Sometimes goes down to left leg. Sometimes numbness on both legs, when he is sitting down but not with walking. He uses cane and limps. Needle sensation on bottom of both feet. PCP says high risk for DM. Records from [facility] reviewed. 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 MRI at that time showed degenerative changes L4-5 and L5-S1. With posterior disc protrusion L5-S1. They recommended trial of left L5 TFESI. After injection, patient reported 30% improvement. I think sometime in the past, patient also had GT bursa injection and intra-articular hip injection. They had then recommended interlaminar epidural approach L5-S1. After which patient reported significant improvement of his pain. But pain on the left side continued. MRI done at [facility] 02/09/2023 reported moderate facet arthropathy L4-5 with a mild disc bulge. No central stenosis. Inferior foraminal disc protrusion on the left without nerve root impingement. Posterior disc protrusion at L5-S1 without central stenosis or foraminal narrowing. He is still currently under WC. Last PT more than a year ago. The pain is the across the back. 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 If he stands, his whole weight is on the back. He did have left knee surgery at [facility] and was told to have torn labrum on left hip but not operated on. Knee pain is not always painful. His pain is more on left lateral hip. No change since I last saw him. Nothing new or acute on lumbar xray (minimal spondylosis) and minimal OA on hips. He said he had not received a call about starting PT that I ordered from last visit. [facility] Medical History Subclinical hyperthyroidism Palpitation Shortness of breath Chest pain Hernia No known health problems Surgical History Hx of hernia repair H/O knee surgery Family History Maternal Grandmother Heart problem Paternal Grandmother Heart problem Social History Alcohol intake: never Patient Tobacco Use Status: Never used Tobacco Current occupational status: unemployed Physical Exam Vital Signs: BMI result Body Mass Index 24.2 Constitutional: Patient appears to be in no acute distress, well nourished and well developed. Patient was appropriately conversant and oriented. Good historian. MSK: No specific abnormalities found on inspection of the spine and all extremities. He maintains the tenderness is over lower lumbar paraspinals and spinous processes. Left SI joint under today. Lumbar ROM was limited due to pain. Neurological: Babinski was down going bilaterally. Clonus was negative. Antalgic gait today. Using a cane. Results Reviewed Results Reviewed: Ordering Physician: Nikky Cummins Date of Service: 05/25/25 Procedure(s): XR lumbar spine 2-3V Accession Number(s): [id number] cc: Analy Chen MD; Nikky [facility] EXAMINATION: XR LUMBOSACRAL SPINE CLINICAL INFORMATION: M54.9 - Dorsalgia, unspecified COMPARISON: Correlated to CT abdomen and pelvis dated February 09, 2024. TECHNIQUE: AP and lateral views FINDINGS: Levoconvex curvature of the lumbar spine. Mild endplate sclerosis at multiple levels. 10% volume loss of the superior endplate L5 and to a lesser extent L4 likely old. No acute cortical disruption or malalignment. No lytic or blastic lesions. Spina bifida occulta S1, congenital. XR/XR lumbar spine 2-3V IMPRESSION: Mild multilevel spondylosis and mild scoliosis. Electronically signed by: Jasen Wolf MD 05/25/2025 09:13 AM EDT RP Ordering Physician: Nikky Cummins Date of Service: 05/25/25 Procedure(s): XR hips SHANTE min 3V Accession Number(s): [id number] cc: Analy Chen MD; Nikky [facility] EXAMINATION: XR BILATERAL HIPS WITH AP PELVIS CLINICAL INFORMATION: M25.559 - Pain in unspecified hip COMPARISON: 01/09/2025. TECHNIQUE: AP and frog-leg lateral views of each hip and an AP view of the pelvis. FINDINGS: No fracture, dislocation, or suspicious bone lesion. Hip joint spaces are symmetric with minimal superior narrowing. No significant arthrosis otherwise, and no significant periarticular spurring or sclerosis. Femoral heads are normal in contour without evidence of AVN. Normal acetabular coverage bilaterally. The SI joints have a normal appearance. The sacrum is intact. Soft tissues appear normal. There are herniorrhaphy clips in the right lower abdomen and pelvis. XR/XR hips SHANTE min 3V IMPRESSION: 1. Minimal symmetric superior joint space narrowing bilateral hips. Otherwise normal examination. Electronically signed by: Chepe Cruz MD 05/25/2025 09:13 AM EDT RP Assessment & Plan Assessment & Plan (1) Chronic lower back pain: Code(s): M54.50 - Low back pain, unspecified; G89.29 - Other chronic pain Category: Medical Qualifiers: Back pain laterality: left Sciatica presence: with sciatica Sciatica laterality: sciatica of left side Qualified Code(s): M54.42 - Lumbago with sciatica, left side; G89.29 - Other chronic pain (2) Left hip pain: Code(s): M25.552 - Pain in left hip Category: Medical Plan Records from [facility] and previous MRI 2 years ago reviewed, as above. History of L5-S1 disc protrusion. Apparently he also had left hip injury, possibly labral tear, per patient report. I do not have medical records of that or was aware of that. We will try again to get records regarding hip pathology from an [facility]. Unfortunately PT was not started since last time we saw him. Our office staff with coordinate with PT to get this started. Assessment and plan discussed with patient, and patient was agreeable. All questions were answered thoroughly. Follow up 2 months, only if PT started. Nikky Okeefe MD, TEETEE Board Certified, [place] Board of Physical Medicine and Rehabilitation (ABPMR) Board Certified, [place] Board of Electrodiagnostic Medicine (ABEM) Coding Level of Care Code Est Pt Level 3 (29378) Diagnoses Chronic left-sided low back pain with left-sided sciatica M54.42; G89.29 Back pain laterality: left Sciatica presence: with sciatica Sciatica laterality: sciatica of left side Left hip pain M25.552
--- OUTSIDE RECORDS SUMMARY | 2025-07-06 08:44 | XMS_ITS | Encounter Summary ---
Author Organization [employer] Address [address] [facility] [address] [address] Care Team Providers Care Auto Rental Clerk Name Role Phone Analy Chen MD Primary Care Provider [phone] Nai Menendez MD Primary Care Provider [phone] Reason for Referral * Consultation (Routine) - Closed Specialty Diagnoses / Procedures Referred By Contac t Referred To Contact Cardiology Diagnoses Primary hypertension Other chest pain Nai Menendez MD [address] [place] [address] Phone: tel: fax: Stephan Batista MD [address] [place] [address] Phone: tel: fax: Referral ID Status Reason Start Date Expiration Date V isits Requested Visits Authorized [id number] Closed Specialty Services Required 04/17/2024 04/17/2025 1 1 Encounter Details Date Type Department Care Team (Late st Contact Info) Description 04/17/2024 Orders Only [facility] [address] [place], [place] [phone] Nai Menendez MD [address] [place] [phone] Primary hypertension (Primary Dx); Other chest pain [...] Care Team (Late st Contact Info) Description 08/08/2025 9:00 AM EDT Office Visit [facility] [address] [place] [address] Nai Menendez MD [address] [place] [address] 08/21/2025 9:00 AM EDT Office Visit [facility] OPTOMETRY [address] [place] [address] Sydnie Negro OD [address] [place] [address] Scheduled Referrals Name Type Priority Associated Diagnoses [...] as of this encounter Care Teams Auto Rental Clerk Relationship Specialty Start Date End Date Analy Chen MD [address] [place] [address] PCP - General Internal Medicine 02/02/24 09/24/24 Nai Menendez MD [address] [place] [address] PCP - General Internal Medicine 09/25/24 Phuong Fink Accounts Receivable ManagerLeather Scrubber 12/05/24 documented as of this encounter
--- OUTSIDE RECORDS SUMMARY | 2025-07-06 08:44 | XMS_ITS | Encounter Summary ---
Author Organization [employer] Address [address] [place] [address] [place] [address] Care Team Providers Care Rivet Hole Machine Operator Name Role Phone Nai Menendez MD Primary Care Provider [phone] Reason for Visit * Reason Onset Date Comments Pt1 10/10/2024 Encounter Details Date Type Department Care Team ([facility] st Contact Info) Description 10/10/2024 Telephone [facility] [address] [place] [address] Nai Menendez MD [address] [place] [address] Pt1 Social History Tobacco Use Types Packs/Day [...] Y/N: Yes Provider name or facility name: [facility] Physical Therapy Facility Address: [address] [place] [address] [place] [address] Escort needed: Y/N: No Do you have a wheelchair: Y/N: No If yes- Manual or electric: n/a Visits: 2-3 times a month for 6 months documented in this encounter Plan of Treatment Upcoming Encounters Date Type Department Care Team ([facility] st Contact Info) Description 08/08/2025 9:00 AM EDT Office Visit [facility] [address] [place] [address] Nai Menendez MD [address] [place] [address] 08/21/2025 9:00 AM EDT Office Visit [facility] OPTOMETRY [address] [place], [place] [phone] Sydnie Negro, G[place]ON [address] [place] [address] documented as of this encounter Visit Diagnoses Not on filedocumented in this encounter Additional Health Concerns Assessment Noted Time PHQ-9 Depression Total Score: 4 02/02/20 24 9:37 AM EDT documented as of this encounter Care Teams Rivet Hole Machine Operator Relationship Specialty Start Date End Date Nai Menendez MD [address] [place] [address] PCP - General Internal Medicine 09/25/24 Phuong Fink Station AttendantFilm Projector Operator 12/05/24 documented as of this encounter
--- OUTSIDE RECORDS SUMMARY | 2025-07-06 08:44 | XMS_ITS | Encounter Summary ---
Author Organization [employer] Address [address] [facility] 7 [place] [address] Care Team Providers Care Rn Psych Name Role Phone Analy Chen MD Primary Care Provider [phone] Nai Menendez MD Primary Care Provider [phone] Reason for Visit * Reason Onset Date Comments Nurse Triage 09/12/2024 Encounter Details Date Type Department Care Team (Late st Contact Info) Description 09/12/2024 Telephone [facility] MEDICINE [address] [place] [address] Analy Chen MD [address] [place], [place] [phone] Nurse Triage Social History Tobacco Use Types [...] and goes. Pt reports difficulty with balance aswell. Pt reports drinking adequate liquids. Pt is [...] 9:00 AM EDT Office Visit [facility] [address] [place] [address] Nai Menendez MD [address] [place] [address] 08/21/2025 9:00 AM EDT Office Visit [facility] OPTOMETRY [address] [place] [address] TarkaSydnie, OD [address] [place] [address] documented as of this encounter Visit Diagnoses Not on filedocumented in this encounter Additional Health Concerns Assessment Noted Time PHQ-9 Depression Total Score: 4 02/02/20 24 9:37 AM EDT documented as of this encounter Care Teams Rn Psych Relationship Specialty Start Date End Date Analy Chen MD [address] [place] [address] PCP - General Internal Medicine 02/02/24 09/24/24 Nai Menendez MD [address] [place] [address] PCP - General Internal Medicine 09/25/24 Phuong Fink Chief Sales OfficerMolasses Coloring Operator 12/05/24 documented as of this encounter
--- OUTSIDE RECORDS SUMMARY | 2025-07-06 08:44 | XMS_ITS | Encounter Summary ---
Author Organization [employer] Address [address] [facility] 7 [place] [address] Care Team Providers Care Deputy Editor In Chief Name Role Phone Nai Menendez MD Primary Care Provider [phone] Encounter Details Date Type Department Care Team (Late st Contact Info) Description 03/23/2025 Orders Only [facility] [address] [place] [address] Provider, MD Darrian Social History Tobacco Use Types Packs/Day Years Used Date Smoking Tobacco: Never Smokeless Tobacco: Never Alcohol Use Standard Drinks/Week Comments Never 0 (1 standard drink = 0.6 oz pur e alcohol) Depression Answer Date Recorded Patient Health Questionnaire-9 Score 6 03/23/2025 Patient Health Questionnaire-9 Score 6 03/23/2025 Last PHQ-9: Questionnaire Data Not on file 0 03/23/2025 Housing Stability Answer Date Recorded What is [...] Answer Date Recorded Patient Health Questionnaire-2 Score 2 03/23/2025 Internet Access Answer Date Recorded Internet Access Q1 Yes 02/05/2025 Internet Access Q2 Not on file 02/05/2025 Sex and Gender Information Value Date Recorded Sex Assigned at Male 01/19/2024 10:51 AM EDT Legal Sex Male 1:23 PM EST Gender Identity Male 01/19/2024 10:51 AM EDT Sexual Orientation Straight 01/19/2024 10 :51 AM EDT documented as of this encounter Functional Status * Over the past 2 weeks, how often have you been bothered by any of the following problems? Question Answer Date of Assessment Author Patient Health Questionnaire -2 Score 2 03/23/2025 8:22 AM Marsha Marion RN * Little interest or pleasure in doing things Answer Date of Assessment Author Several days 03/23/2025 8:22 AM Marsha Marion RN * Feeling down, depressed, or hopeless Answer Date of Assessment Author Several days 03/23/2025 8:22 AM Marsha Marion RN * Trouble falling or staying asleep, or sleeping too much Answer Date of Assessment Author Several days 03/23/2025 8:22 AM Marsha Marion RN * Feeling tired or having little energy Answer Date of Assessment Author Several days 03/23/2025 8:22 AM Marsha Marion RN * Poor appetite or overeating Answer Date of Assessment Author Several days 03/23/2025 8:22 AM Marsha Marion RN * Feeling bad about yourself - or that you are a failure or have let yourself or your family down Answer Date of Assessment Author Not at all 03/23/2025 8:22 AM Marsha Marion RN * Trouble concentrating on things, such as reading the newspaper or watching television Answer Date of Assessment Author Several days 03/23/2025 8:22 AM Marsha Marion RN * Moving or speaking so slowly that other people could have noticed? Or the opposite - being so fidgety or restless that you have been moving around a lot more than usual. Answer Date of Assessment Author Not at all 03/23/2025 8:22 AM Marsha Marion RN * Thoughts that you would be better off or hurting yourself in some way Answer Date of Assessment Author Not at all 03/23/2025 8:22 AM Marsha Marion RN * Patient Health Questionnaire-9 Score Answer Date of Assessment Author 6 03/23/2025 8:22 AM Marsha Marion RN * How difficult have these problems made it for you to do your work, take care of things at home, or get along with other people? Answer Date of Assessment Author Somewhat difficult 03/23/2025 8:22 AM Marsha Grover RN * Over the last 2 weeks, how often have you been bothered by any of the following problems? Question Answer Date of Assessment Author Feeling nervous, anxious, or on edge 1 03/23/2025 8:23 AM Marsha Marion RN Not being able to stop or co ntrol worrying 1 03/23/2025 8:23 AM Marsha Marion RN Worrying too much about diff erent things 1 03/23/2025 8:23 AM Marsha Marion RN Trouble relaxing 1 03/23/2025 8:23 AM Marsha Whalen RN Being so restless that it is hard to sit still 1 03/23/2025 8:23 AM Marsha Marion RN Becoming easily annoyed or irritable 0 03/23/2025 8:23 AM Marsha Marion RN Feeling afraid as if somethi ng awful might happen 0 03/23/2025 8:23 AM Marsha Marion RN ASUNCION-7 Total Score 5 03/23/2025 8:23 AM Marsha Marion RN documented as of this encounter Plan of Treatment Upcoming Encounters Date Type Department Care Team (Late st Contact Info) Description 08/08/2025 9:00 AM EDT [facility] Visit [facility]S [address] [place], [place] [phone] Nai Menendez MD [address] [place] [address] 08/21/2025 9:00 AM EDT Office Visit [facility] [address] [place], [place] [phone] Sydnie Negro, OD [address] [place] [address] documented as of this encounter Procedures Procedure Name Priority Date/Time Associated Diagnosis Comments US ABDOMEN LIMITED Routine 03/23/2025 12:44 PM EDT documented in this encounter Results * US Abdomen Limited (03/23/2025 12:44 PM EDT) Anatomical Region Laterality Modality Abdomen Ultrasound us Historical Provider MD FIELDS US PROCEDURES Final R esult documented in this encounter Visit Diagnoses Not on filedocumented in this encounter Additional Health Concerns Assessment Noted Time PHQ-9 Depression Total Score: 6 03/23/20 25 8:22 AM EDT documented as of this encounter Care Teams Deputy Editor In Chief Relationship Specialty Start Date End Date Nai Menendez MD [address] [place] [address] [place] [address] PCP - General Internal Medicine 09/25/24 Phuong Fink Gill Box FixerEquipment Operat0R 12/05/24 documented as of this encounter
--- OUTSIDE RECORDS SUMMARY | 2025-07-06 08:44 | XMS_ITS | Clinical Summary ---
Author Organization [employer] Address [address] [facility] 7t [place] [address] Care Team Providers Care Check And Transfer Beader Name Role Phone Nai Menendez MD Primary Care Provider [phone] Allergies No known active allergies Medications * This document contains information received from the source organization and may not represent a complete record from that organization. omeprazole (PriLOSEC) [address] capsule Take 20 mg by mouth in the morning and 20 mg in the evening. Active oxyCODONE (Roxicodone) 5 MG immediate release tablet Take 5 mg by mouth every 6 (six) hours if needed. Active Senna-Time 8.6 MG tablet TAKE 1 TABLET BY MOUTH TWO TIMES A DAY NEEDED FOR CONSTIPATION Active Blood Pressure kitIndications: Primary hypertension,Ot her chest pain To check the BP Daily. Keep the log for the next visit. 1 kit Active chlorhexidine (Peridex) 0.12 % solutionIndicat ions:History of tooth extraction, unspecified edentulism class Swish 15 mL morning and night for 1 minute. Spit, do not swallow. Do not eat or drink for 30 minutes following use. 473 mL Active cetirizine (ZyrTEC) 10 MG tabletIndicatio ns:Nasal congestion Take 1 tablet (10 mg) by mouth Once per day. 30 tablet 11 025 2025 Active cyclobenzaprine (Flexeril) 10 MG tablet Take 1 tablet (10 mg) by mouth 3 times daily for 10 days. 30 tablet 02/11/2 025 Active gabapentin (Neurontin) 300 MG capsuleIndicati [...] BY MOUTH AT BEDTIME 30 tablet 1 025 Active tamsulosin (Flomax) 0.4 MG 24 hr capsuleIndicati ons:Dysuria TAKE 2 CAPSULES(0.8 MG) BY MOUTH DAILY 30 capsule 11 025 Active omeprazole OTC (PriLOSEC OTC) 20 MG EC tablet Take 20 mg by mouth. 024 Active meloxicam (Mobic) 15 MG tabletIndicatio ns:Subcutaneous nodule of abdominal wall Take 1 tablet (15 mg) by mouth Once per day. 30 tablet 1 025 2025 Active Omeprazole 20 MG tablet delayed-release Indications:Gas troesophageal reflux disease without esophagitis Take 1 tablet (20 mg) by mouth Once per day. 30 tablet 3 025 Active hydrOXYzine pamoate (Vistaril) 50 MG capsuleIndicati ons:Anxiety,Oth er insomnia 1 to 2 capsules at bedtime 60 capsule 025 Active SUMAtriptan (Imitrex) 25 MG tabletIndicatio ns:Migraine with aura and without status migrainosus, not intractable TAKE 1 TABLET BY MOUTH ONCE FOR MIGRAINE, MAY REPEAT DOSE ONCE IN 2 HOURS IF NO RELIEF, MAX 2 DOSE IN 24 HOURS 9 tablet 3 025 Active Diclofenac Sodium 1 % gelIndications: Right inguinal pain APPLY TOPICALLY TO THE AFFECTED AREA THREE TIMES DAILY 100 g 3 025 Active lidocaine (Lidoderm) 5 % patch APPLY 1 PATCH TOPICALLY EVERY MORNING AND REMOVE AND DISCARD AFTER 12 HOURS 30 patch 3 025 Active lisinopril 20 MG tabletIndicatio ns:Primary hypertension TAKE 1 TABLET(20 MG) BY MOUTH DAILY 90 tablet 1 025 Active Sod Fluoride-Potass ium Nitrate (Sodium Fluoride 5000 Enamel) 1.1-5 % gelIndications: Dental caries BRUSH TEETH FOR 2 MINUTES, MORNING AND NIGHT. SPIT, DO NOT RINSE. DO NOT EAT OR DRINK ANYTHING FOR 30 MINUTES FOLLOWING BRUSHING 112 g 11 025 Active chlorhexidine (Peridex) 0.12 % solution SWISH AND SPIT WITH 15ML BY MOUTH EVERY MORNING AND EVERY EVENING FOR 1 MINUTE DO NOT EAT OR DRINK FOR UP TO 30 MINUTES AFTER 473 mL 025 Active tadalafil (Cialis) 5 MG tabletIndicatio ns:Erectile disorder Take 1 tablet (5 mg) by mouth Once per day. 90 tablet 1 025 Active busPIRone (Buspar) 5 MG tabletIndicatio ns:Anxiety Take 1 tablet (5 mg) by mouth 2 times daily. 60 tablet 11 025 2025 Active tadalafil (Cialis) 5 MG tablet Take 5 mg by mouth Once per day. 2024 Discontinued(R eorder (will not trigger notification to Pharmacy)) tadalafil (Cialis) 5 MG tabletIndicatio ns:Erectile disorder Take 1 tablet (5 mg) by mouth Once per day. 90 tablet 1 025 2024 Discontinued(R eorder (will [...] Encounters Date Type Department Care Team Description 06/22/2025 3:15 PM EDT Office Visit [facility] [address] [place], [place] [id number] Nai Menendez MD Primary hypertension (Primary Dx); Erectile disorder; Dizziness, nonspecific; Chronic pain of both knees; Anxiety 06/22/2025 Travel 06/21/2025 Patient Outreach [address] [address] Nai Menendez MD Care Management (C3CM- f/u call) 06/21/2025 Telephone [facility] [address] [place] [address] Nai Menendez MD Chart Prep 06/15/2025 Travel 06/12/2025 Orders Only [facility] [address] [place] [address] Nai Menendez MD Erectile disorder (Primary Dx) 06/12/2025 Patient Outreach [address] [address] Nai Menendez MD Care Management (C3CM- f/u call) 05/31/2025 Patient Outreach [address] [address] Nai Menendez MD Care Coordination (SDOH f/u) 05/31/2025 Patient Outreach [address] [address] Nai Menendez MD Care Management (C3CM- f/u call) 05/19/2025 Refill [facility] [address] [place] [address] Willy Kay, DMD Dental caries 05/18/2025 Patient Outreach [address] [address] Nai Menendez MD Care Management (C3CM- f/u call) 05/11/[address] [address] Mariella Kirby LPN 05/08/2025 Telephone [facility] [address] [place] [address] Nai Menendez MD Nurse Triage 05/01/2025 Orders Only [facility] [address] [place] [address] Nai Menendez MD Primary hypertension (Primary Dx) 05/01/2025 Patient Outreach [address] [address] Nai Menendez MD Care Management (C3CM- f/u call) 04/22/2025 Refill [facility] [address] [place] [address] Nai Menendez MD Subcutaneous nodule of abdominal wall 04/20/2025 Patient Outreach [address] [address] Nai Menendez MD Care Coordination (SDOH) 04/18/2025 Patient Outreach [address] [address] Nai Menendez MD Care Coordination (SDOH f/u) 04/16/2025 Patient Outreach [address] [address] Nai Menendez MD Care Management (C3CM- f/u call) from Last 3 Months Immunizations Immunization Administration Dates Next Due Tdap 09/25/2024 Family [...] Sign Reading Time Taken Comments Blood Pressure 142/83 06/22/2025 3:05 PM EDT Pulse 85 06/22/2025 3:05 PM EDT Temperature 36.8 C (98.2 F) 06/22/2025 3:05 PM EDT Respiratory Rate 20 06/22/2025 3:05 PM EDT Oxygen Saturation 95% 06/22/2025 3:05 PM EDT Inhaled Oxygen Concentration - - Weight 71.7 kg (158 lb) 06/22/2025 3:05 PM EDT Height 167.6 cm (5' 6 ) 06/22/2025 3:05 PM EDT Body Mass Index 25.5 06/22/2025 3:05 PM EDT Plan of Treatment Upcoming Encounters Date Type Department Care Team ([facility] st Contact Info) Description 08/08/2025 9:00 AM EDT Office Visit [facility] [address] [place] [address] Nai Menendez MD [address] [place] [address] 08/21/2025 9:00 AM EDT Office Visit [facility] [address] [place] [address] Sydnie Negro, OD [address] [place] [address] Health Maintenance Due Date Last Done Comments CT Colonography 1970 Colonoscopy 1972 FIT 1970 Sigmoidoscopy 1970 Hepatitis A Vaccines (1 of 2 - Risk 2-dose series) 01/23/1991 Hepatitis B Vaccines (1 of 3 - 19+ 3-dose series) 01/23/1991 Pneumococcal Vaccine: 50+ Years (1 of 1 - PCV) 01/23/2022 Dental Prophylaxis 10/21/2024 04/20/2024 Dental Oral Exam 02/14/2025 08/15/2024, 03/15/2024 FOBT 02/20/2025 02/21/2024 Dental X-Ray: Bitewings 03/16/2025 03/15/20, 02/09/2024 COVID-19 Vaccine (3 - 2024-2 6 season) 2025 04/03/2021, 03/06/2021 Influenza Vaccine (#1) 2025 Zoster Vaccines (1 of 2) 09/25/2025 Pos tponed from 01/23/2022 (Patient Refused) Disability Screening 11/24/2025 11/24/2024 Alcohol/Substance Use Screening 02/12/2026 02/12/2025 Diabetes: Hemoglobin A1C 02/12/2026 025, 09/25/2024 Depression Screening 03/23/2026 03/23/2025, 03/23/2025 SDOH Screening 04/18/2026 04/18/2025 Tobacco Screening 06/22/2026 06/22/2025 Colorectal Cancer Screening 02/20/2027 FIT DNA/Cologuard 02/20/2027 [...] Procedure Name Priority Date/Time Associated Diagnosis Comments XR LUMBAR SPINE 2-3 VIEWS Routine 05/25/2025 7:50 AM EDT XR HIPS BILATERAL 3 OR 4 VIEWS WITH OR WITHOUT PELVIS Routine 05/25/2025 7:50 AM EDT POCT GLYCATED HEMOGLOBIN, TOTAL Routine 02/12/2025 9:43 AM EDT Polydipsia PERIODIC ORAL EVALUATION - ESTABLISHED PATIENT Routine 08/15/2024 9:30 AM EDT Periodontal disease Defective dental orthodoxy Symptomatic irreversible pulpitis PROPHYLAXIS - ADULT Routine 04/20/2024 9 :00 AM EDT INTRAORAL - COMPLETE SERIES OF RADIOGRAPHIC IMAGES Routine 03/15/2024 8:00 AM EDT Periodontal disease Dental caries Full coverage crown needed for root canal-treated tooth LAB COLOGUARD COLON CANCER SCREEN Routine 02/21/2024 7:45 AM [...] Recently Relevant to Health Maintenance Results * XR Hips Bilateral 3 or 4 Views with or without Pelvis (05/25/2025 7:50 AM EDT) Anatomical Region Laterality Modality Lower Extremities, Hip Bilateral Radiograp hic Imaging 05/25/2025 7:50 AM EDT Narrative 05/25/2025 9:16 AM EDT [facility] [address] [place] [address] Drive [address] [place] [address] XRay Report Signed Patient: Osei Fink MR#: [id number] 9 : 1970 Acct:[id number] Age/Sex: 55 / M ADM Date: 05/25/25 Loc: HO.HOSX Attending Dr: Nikky Okeefe MD Ordering Physician: Nikky Cummins Date of Service: 05/25/25 Procedure(s): XR hips SHANTE min 3V Accession Number(s): [id number] cc: Analy Chen MD; Nikky Cummins EXAMINATION: XR BILATERAL HIPS WITH AP PELVIS CLINICAL INFORMATION: M25.559 - Pain in unspecified hip COMPARISON: 01/09/2025. TECHNIQUE: AP and frog-leg lateral views of each hip and an AP view of the pelvis. FINDINGS: No fracture, dislocation, or suspicious bone lesion. Hip joint spaces are symmetric with minimal superior narrowing. No significant arthrosis otherwise, and no significant periarticular spurring or sclerosis. Femoral heads are normal in contour without evidence of AVN. Normal acetabular coverage bilaterally. The SI joints have a normal appearance. The sacrum is intact. Soft tissues appear normal. There are herniorrhaphy clips in the right lower abdomen and pelvis. XR/XR hips SHANTE min 3V IMPRESSION: 1. Minimal symmetric superior joint space narrowing bilateral hips. Otherwise normal examination. Electronically signed by: Chepe Cruz MD 05/25/2025 09:13 AM EDT RP Dictated By: Chepe Cruz MD Signed By: <Electronically signed by Chepe Cruz MD in OV> 05/25/2513 DD/ 0750 TD/TT: 05/25/25 0905 Industrial [employer] Production Operator: Procedure Note Donotuseinterpreter, Image - 05/25/2025 [facility] [address] [place] [address] Drive [address] [place] [address] XRay Report Signed Patient: Osei Fink#: [id number] 9 : 1970Acct:[id number] Age/Sex: 55 / MADM Date: 05/25/25 Loc: HO.HOSX Attending Dr: Nikky Okeefe MD Ordering Physician: Nikky Cummins Date of Service: 05/25/25 Procedure(s): XR hips SHANTE min 3V Accession Number(s): [id number] cc: Analy Chen MD; Nikky Cummins EXAMINATION: XR BILATERAL HIPS WITH AP PELVIS CLINICAL INFORMATION: M25.559 - Pain in unspecified hip COMPARISON: 01/09/2025. TECHNIQUE: AP and frog-leg lateral views of each hip and an AP view of the pelvis. FINDINGS: No fracture, dislocation, or suspicious bone lesion. Hip joint spaces are symmetric with minimal superior narrowing. No significant arthrosis otherwise, and no significant periarticular spurring or sclerosis. Femoral heads are normal in contour without evidence of AVN. Normal acetabular coverage bilaterally. The SI joints have a normal appearance. The sacrum is intact. Soft tissues appear normal. There are herniorrhaphy clips in the right lower abdomen and pelvis. XR/XR hips SHANTE min 3V IMPRESSION: 1. Minimal symmetric superior joint space narrowing bilateral hips. Otherwise normal examination. Electronically signed by: Chepe Cruz MD 05/25/2025 09:13 AM EDT RP Dictated By: Chepe Cruz MD Signed By: <Electronically signed by Chepe Cruz MD in OV> 05/25/25912 DD/ 9 TD/TT: 05/25/25904 Industrial [employer] Production Operator: us [facility] External Provider IMG XR PROCEDURES Edited Result - Final * XR Lumbar Spine 2-3 Views (05/25/2025 7:50 AM EDT) Anatomical Region Laterality Modality Spine, L-spine Radiographic Griselda ging 05/25/2025 7:50 AM EDT Narrative 05/25/2025 9:16 AM EDT [facility] [address] [place] [address] Drive [address] [place] [address] XRay Report Signed Patient: Osei Fink MR#: [id number] 9 : 1970 Acct:[id number] Age/Sex: 55 / M ADM Date: 05/25/25 Loc: DORYS Attending Dr: Nikky Okeefe MD Ordering Physician: Nikky Cummins Date of Service: 05/25/25 Procedure(s): XR lumbar spine 2-3V Accession Number(s): [id number] cc: Analy Chen MD; Nikky Cummins EXAMINATION: XR LUMBOSACRAL SPINE CLINICAL INFORMATION: M54.9 - Dorsalgia, unspecified COMPARISON: Correlated to CT abdomen and pelvis dated February 09, 2024. TECHNIQUE: AP and lateral views FINDINGS: Levoconvex curvature of the lumbar spine. Mild endplate sclerosis at multiple levels. 10% volume loss of the superior endplate L5 and to a lesser extent L4 likely old. No acute cortical disruption or malalignment. No lytic or blastic lesions. Spina bifida occulta S1, congenital. XR/XR lumbar spine 2-3V IMPRESSION: Mild multilevel spondylosis and mild scoliosis. Electronically signed by: Jasen Wolf MD 05/25/2025 09:13 AM EDT Dictated By: Jasen Rivera MD Signed By: <Electronically signed by Jasen Estrada MD in OV> 05/25/2513 DD/ 9 TD/TT: 05/25/25904 [employer] Operator: Procedure Note Donotuseinterpreter, Image - 05/25/2025 [facility] [address] [place] [address] XRay Report Signed Patient: Osei FinkMR#: [id number] 9 : 1970Acct:[id number] Age/Sex: 55 / MADM Date: 05/25/25 Loc: HO.HOSX Attending Dr: Nikky Okeefe MD Ordering Physician: Nikky Cummins Date of Service: 05/25/25 Procedure(s): XR lumbar spine 2-3V Accession Number(s): [id number] cc: Analy Chen MD; Nikky Cummins EXAMINATION: XR LUMBOSACRAL SPINE CLINICAL INFORMATION: M54.9 - Dorsalgia, unspecified COMPARISON: Correlated to CT abdomen and pelvis dated February 09, 2024. TECHNIQUE: AP and lateral views FINDINGS: Levoconvex curvature of the lumbar spine. Mild endplate sclerosis at multiple levels. 10% volume loss of the superior endplate L5 and to a lesser extent L4 likely old. No acute cortical disruption or malalignment. No lytic or blastic lesions. Spina bifida occulta S1, congenital. XR/XR lumbar spine 2-3V IMPRESSION: Mild multilevel spondylosis and mild scoliosis. Electronically signed by: Jasen Wolf MD 05/25/2025 09:13 AM EDT Dictated By: Jasen Rivera MD Signed By: <Electronically signed by Jasen Estrada MDin OV> 05/25/25 0913 DD/ 0750 TD/TT: 05/25/25 0905 Industrial Gas Production Operator: [facility] External Provider IMG XR PROCEDURES Edited Result - Final * POCT HGB A1C (02/12/2025 9:43 AM EDT) Hemoglobin A1C 5.7 4.0 - 6.0 % QC Media Lot # [id number] Lot# Expiration Date Blood 02/12/2025 9:43 AM EDT us Nai Menendez MD POINT OF CARE TEST ENTER/ED IT ORDERABLES Final Result * Cologuard?? colon cancer screening (02/21/2024 7:45 AM EDT) Cologuard Result Negative Negative 03/01/20 3:29 AM EDT [facility] (CLIA #:[id number]) Comment: NEGATIVE TEST RESULT. A negative Cologuard result indicates a low likelihood that a colorectal cancer (CRC) or advanced adenoma (adenomatous polyps with more advanced pre-malignant features) is present. The chance that a person with a negative Cologuard test has a colorectal cancer is less than 1 in 1500 (negative predictive value >99.9%) or has an advanced adenoma is less than 5.3% (negative predictive value 94.7%). These data are based on a prospective cross-sectional study of 10,000 individuals at average risk for colorectal cancer who were screened with both Cologuard and colonoscopy. (Lela Tomas et al, N Engl J Med 2014;370(14):8847-9120) The normal value (reference range) for this assay is negative. COLOGUARD RE-SCREENING RECOMMENDATION: Periodic colorectal cancer screening is an important part of preventive healthcare for asymptomatic individuals at average risk for colorectal cancer. Following a negative Cologuard result, the [place] Cancer Society and U.S. Multi-Society Task Force screening guidelines recommend a Cologuard re-screening interval of 3 years. References: [place] [employer] Guideline for Colorectal Cancer Screening: https://www.cancer.org/cancer/duaai-bqqvhi-xmupjs/vdqcywkms-tplaqvfrn-bvcbler/ac s-rec ommendations.html.; Peña DK, Ra CR, Alisa BakerK, Colorectal Cancer Screening: Recommendations for Physicians and Patients from the U.S. Multi-Society Task Force on Colorectal Cancer Screening , Am J Gastroenterology 2017; 112:2632-6310. TEST DESCRIPTION: Composite algorithmic analysis of stool DNA-biomarkers with hemoglobin immunoassay. Quantitative values of individual biomarkers are not [...] (Lela Jones al, N Engl J Med 2014;370(14):8921-1245.) Cologuard may produce a false negative or false positive result (no colorectal cancer or precancerous polyp present at colonoscopy follow up). A negative Cologuard test result does not guarantee the absence of CRC or advanced adenoma (pre-cancer). The current Cologuard screening interval is every 3 years. ([employer] [employer] and U.S. Multi-Society Task Force). Cologuard performance data in a 10,000 patient pivotal study using colonoscopy as the reference method can be accessed at the following location: www.[employer]/results. Additional description of the Cologuard test process, warnings and precautions can be found at www.[employer] [facility].com. Stool specimen (specimen) 02/21/2024 7:45 AM EDT 02/23/2024 10:44 AM EDT Analy Chen MD LAB MOLECULAR DIAGNOSTICS ORD ERABLES Final Result [facility] (CLIA #:[id number]) [place] [address], * Hepatitis A,B,C Profile (02/02/2024 10:43 AM EDT) Hepatitis A IgM Nonreactive Nonreactive [facility] Comment:IgM antibodies to QUINTANILLA V not detected; does not exclude earlyacute or recovered HAV infection. ~Hepatitis B Surface Antibody NONREACTIVE Nonreactive [facility] Comment:Nonreactive: < 8.00 mIU/mL Hepatitis B Core Antibody Nonreactive Nonreactive [facility] Hepatitis C Antibody Nonreactive Nonreactive [facility] Comment:Antibodies to HCV no t detected; does not exclude early acuteHCV infection. Hepatitis B Surface Ag Negative Negative [facility] Blood Venous blood specimen / Unknown 02/02/2024 10:43 AM EDT 02/02/2024 2:10 PM EDT Analy Chen MD LAB BLOOD ORDERABLES Final Re sult [facility] [address] [place] [phone] * HIV-1/2 Antigen and Antibodies, Fourth Generation, with Reflexes (02/02/2024 10:43 AM EDT) HIV AB/AG Nonreactive Nonreactive [facility] Comment:HIV-1 p24 Ag and/or HIV-1/HIV-2 Ab not detected.A test result that is nonreactive does not exclude thepossibility of exposure to or infection with HIV-1 and/orHIV-2. Nonreactive results in this assay for individualswith prior exposure to HIV-1 and/or HIV-2 may be due toantigen and antibody levels that are below the limit ofdetection of this assay.The [employer] HIV Ag/Ab Combo assay result andsupplemental assay [...] Re sult Performing Organization Address [facility]/ZIP Co de Phone Number [facility] [address] [place] [address] [phone] * (ABNORMAL) Lipid Panel, Standard (02/02/2024 10:43 AM EDT) Triglycerides 143 <150 mg/dL [facility] Comment:Desirable Triglyceri de: less than 150 mg/dLBorderline High Triglyceride 150-199 mg/dLHigh Triglyceride: 200-499 mg/dLVery High Triglyceride: greater than or equal to 5OO mg/dL Cholesterol 174 <200 mg/dL [facility] Comment:Desirable Cholestero l: less than 200 mg/dLBorderline High Cholesterol: 200-239 mg/dLHigh Cholesterol: greater than 239 mg/dL LDL Cholesterol Calculated 105(H) <100 mg/dL [facility] Comment:Desirable LDL: less than 100 mg/dLNear Optimal/Above Optimal LDL: 110- 129 mg/dLBorderline High LDL: 130-159 mg/dLHigh LDL: 160-189 mg/dLVery High LDL: greater than or equal to 190 mg/dL HDL Cholesterol 41 >40 mg/dL [facility] Comment:Desirable HDL: great er than 40 mg/dL Note: This HDL assay may give artificially low results in patients with liver disease. Blood Venous blood specimen / Unknown 02/02/2024 10:43 AM EDT 02/02/2024 2:10 PM EDT us Analy Chen MD LAB BLOOD ORDERABLES Final Re sult Performing Organization Address City/[facility]/ZIP Co de Phone Number [facility] [address] [place] [address] [phone] from Last 3 Months or Most Recently Relevant [place] [id number] [place] [facility] ST[place] ADULT Care Teams Check And Transfer Beader Relationship Specialty Start Date End Date Nai Menendez MD [address] [place] [address] [place] [address] PCP - General Internal Medicine 09/25/24 Phuong Fink Cuff PresserSweeper Brush Maker Machine 12/05/24
--- OUTSIDE RECORDS SUMMARY | 2025-07-06 08:44 | XMS_ITS | Encounter Summary ---
Author Organization [employer] Address 75 [facility] 7 [place] [address] Care Team Providers Care Childcare Center Administrator Name Role Phone Nai Menendez MD Primary Care Provider [phone] Reason for Visit * Reason Comments Med Refill Encounter Details Date Type Department Care Team ([facility] Contact Info) Description 05/19/2025 Refill [facility] [address] [place], [place] [phone] Willy Kay, DMD [address] [place] [address] Dental caries Social History Tobacco Use Types Packs/Day Years [...] encounter Miscellaneous Notes * Telephone Encounter - Willy Kay DMD - 05/21/2025 8:03 AM EDT Approving, but needs appt for additional refills. documented in this encounter Plan of Treatment Upcoming Encounters Date Type Department Care Team (Late st Contact Info) Description 08/08/2025 9:00 AM EDT Office Visit [facility] [address] [place] [address] Nai Menendez MD [address] [place] [address] 08/21/2025 9:00 AM EDT Office Visit [facility] [address] [place] [address] TarkaSydnie, OD [address] [place] [address] documented as of this encounter Visit Diagnoses Diagnosis Dental caries Unspecified dental caries documented in this encounter Additional Health Concerns Assessment Noted Time PHQ-9 Depression Total Score: 6 03/23/20 25 8:22 AM EDT documented as of this encounter Care Teams Childcare Center Administrator Relationship Specialty Start Date End Date Nai Menendez MD [address] [place], [place] [address] [address] PCP - General Internal Medicine 09/25/24 Phuong Fink Plate HangerPantograph I Engraver 12/05/24 documented as of this encounter
--- OUTSIDE RECORDS SUMMARY | 2025-07-06 08:44 | XMS_ITS | Encounter Summary ---
Author Organization [employer] Address 75 [facility] 7 [place] [address] Care Team Providers Care Utilization Engineer Name Role Phone Analy Chen MD Primary Care Provider [phone] Nai Menendez MD Primary Care Provider [phone] Reason for Visit * Reason Onset Date Comments Call Back Request 06/09/2024 Encounter Details Date Type Department Care Team (Late st Contact Info) Description 06/09/2024 Telephone [facility] [address] [place] [address] Analy Chen MD [address] [place] [address] Call Back Request Social History Tobacco Use [...] Description 08/08/2025 9:00 AM EDT Office Visit [facility] [address] [place], [place] [phone] Nai Menendez MD [address] [place] [address] 08/21/2025 9:00 AM EDT Office Visit [facility] [address] [place], [place] [phone] TarkaSydnie, OD [address] [place] [address] documented as of this encounter Visit Diagnoses Not on filedocumented in this encounter Additional Health Concerns Assessment Noted Time PHQ-9 Depression Total Score: 4 02/02/20 24 9:37 AM EDT documented as of this encounter Care Teams Utilization Engineer Relationship Specialty Start Date End Date Analy Chen MD [address] [place] [address] PCP - General Internal Medicine 02/02/24 09/24/24 Nai Menendez MD [address] [place] [address] PCP - General Internal Medicine 09/25/24 Phuong Fink Wrapper OperatorInstallation And Repair Technician 12/05/24 documented as of this encounter
--- OUTSIDE RECORDS SUMMARY | 2025-07-06 08:44 | XMS_ITS | Encounter Summary ---
Author Organization [employer] Address [address] [place] [address] 7 [place] [address] Care Team Providers Care Internet Security Specialist Name Role Phone Analy Chen MD Primary Care Provider [phone] Nai Menendez MD Primary Care Provider [phone] Encounter Details Date Type Department Care Team ([facility] st Contact Info) Description 06/14/2024 Orders Only [facility] CHC MED & PEDS [address] [place], [place] [phone] Nai Menendez MD 505 [place], [place] [phone] Tremor (Primary Dx); Low TSH level Social [...] 9:00 AM EDT Office Visit [facility] CHC MED & PEDS [address] [place] [address] Nai Menendez MD 505 [place] [address] 08/21/2025 9:00 AM EDT Office Visit [facility] OPTOMETRY [address] [place] [address] Tarka, Sydnie, OD [address] [place] [address] documented as of this encounter Visit Diagnoses Diagnosis Tremor- Primary Abnormal involuntary movements Low TSH level documented in this encounter Additional Health Concerns Assessment Noted Time PHQ-9 Depression Total Score: 4 02/02/20 9:37 AM EDT documented as of this encounter Care Teams Internet Security Specialist Relationship Specialty Start Date End Date Analy Chen MD 505 [place] [address] PCP - General Internal Medicine 02/02/24 09/24/24 Nai Menendez MD 505 [place] [address] PCP - General Internal Medicine 09/25/24 Phuong Fink Shingle InspectorDigital Marketing Intern 12/05/24 documented as of this encounter
--- OUTSIDE RECORDS SUMMARY | 2025-07-06 08:44 | XMS_ITS | Encounter Summary ---
Author Organization [employer] Address [address] [place] [address] 7 [place] [address] Care Team Providers Care Esthetics Instructor Name Role Phone Nai Menendez MD Primary Care Provider [phone] Encounter Details Date Type Department Care Team ([facility] st Contact Info) Description 06/12/2025 Orders Only [facility] CHC MED & PEDS [address] [place], [place] [phone] Nai Menendez MD 505 [place], [place] [phone] Erectile disorder (Primary Dx) Social History Tobacco Use Types [...] Description 08/08/2025 9:00 AM EDT Office Visit [facility] CHC MED & PEDS [address] [place] [address] Nai Menendez MD 505 [place] [address] 08/21/2025 9:00 AM EDT Office Visit [facility] OPTOMETRY [address] [place] [address] Tarka, Sydnie, OD [address] [place] [address] documented as of this encounter Visit Diagnoses Diagnosis Erectile disorder- Primary documented in this encounter Additional Health Concerns Assessment Noted Time PHQ-9 Depression Total Score: 6 03/23/20 8:22 AM EDT documented as of this encounter Care Teams Esthetics Instructor Relationship Specialty Start Date End Date Nai Menendez MD 505 [place] [address] PCP - General Internal Medicine 09/25/24 Phuong Fink [facility] Nurse PractitionerNut Roaster Helper 12/05/24 documented as of this encounter
--- OUTSIDE RECORDS SUMMARY | 2025-07-06 08:44 | XMS_ITS | Clinical Summary ---
Author Organization [address] [facility] Address [address] [place] [address] Phone Care Team Providers Care Stove Mounter Name Role Phone Nai Menendez MD Primary Care Provider [phone] Allergies No known active allergies Medications amLODIPine [...] - 04/30/2025 11:59 PM EDT Hospital Encounter [facility] Ultrasound [address] [place] [address] Right groin pain Discharge Disposition: Home or Self Care 04/16/2025 8:30 AM EDT Office Visit Bariatric Surgery - [place] [address] [facility] [address] [place] [id number] Zayra Cuevas MD Right groin pain (Primary Dx); S/P laparoscopic hernia repair; Subcutaneous nodule from Last 3 Months Surgical History Surgery [...] 01/23/2022 Zoster Vaccines (1 of 2) 01/23/2022 Hepatitis C Screening 08/09/2024 Social Influencers of Health Screening 08/09/2024 Depression Screening 11/01/2024 COVID-19 Vaccine (3 - 2024-2 6 season) 2025 04/03/2021, 03/06/2021 Influenza Vaccine (#1) 2025 Hypertension/CHF/CAD Annual BMP [...] this topic Medical Devices Implanted Type Area Integrity Engineer Device Identifier Shelf Expiration Date Model / Serial / Lot Mesh 3dmax Lght Lg 4.1x6.2 R 4.1x6.2in - Sn/A - [id number] Implanted:Qty: 1 on 01/18/2025 by Zayra Cuevas MD at [facility] Surgical Mesh Sling Implants Right: Abdomen CR BARD - DAVOL DIV 04/28/2029 [id number] / N/A / [id number] Procedures Procedure Name Priority Date/Time Associated Diagnosis Comments US BX NDL LYMPH NODE SUPERFICIAL RIGHT Routine 04/30/2025 3:15 PM EDT Right groin pain TISSUE EXAM Routine 04/30/2025 3:15 PM EDT Right groin pain FLOW CYTOMETRY Routine 04/30/2025 3:15 PM EDT Right groin pain from Last 3 [...] Signed Date: 04/30/2025 15:50 ET Workstation ID: [id number] Transcribed By: Self Edit Transcribed Date: 04/30/2025 [...] medially. -------- FINAL REPORT -------- Dictated By: Katharina, Parshant Dictated Date: 04/30/2025 15:46 ET Assigned Physician: Roland Posadas Reviewed and Electronically Signed By: Roland Posadas Signed Date: 04/30/2025 15:50 ET Workstation ID: [id number] Transcribed By: Self Edit Transcribed Date: 04/30/2025 15:46 ET Zayra Cuevas MD IM US PROCEDURES Final Result * Flow cytometry (04/30/2025 3:15 PM EDT) Flow Cytometry Interpretation Lymph node, right inguinal, flow cytometry: No monotypic B cell population identified. Most of the lymphocytes are CD3-positive T cells including CD4-positive and CD8-positive subsets without diagnostic phenotypic aberrancy. There is no discrete population of CF38-kfbcruvs blasts identified. See comment. Comment: The overall findings show a polytypic B-cell population and a population of T cells without diagnostic immunophenotypic aberrancy, findings compatible with a reactive lymphoid population. However, correlation with clinical and morphologic findings ([id number]) is recommended as a negative flow cytometric [...] SPECIMEN: Right inguinal lymph node, core biopsy ([id number]) VIABILITY: 88.4% TOTAL CELL YIELD: 0.4x106/mL IMMUNOPHENOTYPIC [...] CD19, CD20, CD34, CD38, CD45, CD56, CD200, [place], Lambda, TCR gamma-delta. 05/02/2025 9:52 AM EDT [facility] Disclaimer This test was developed and [...] clinical laboratory testing. 05/02/2025 9:52 AM EDT [facility] Tissue Lymph node specimen / Unknown 04/30/2025 3:15 PM EDT 05/01/2025 7:39 AM EDT Zayra Cuevas MD LAB BLOOD ORDERABLES nal Result [facility] [address] [place] [address], [place] [phone] * Tissue exam (04/30/2025 3:15 PM EDT) Final Diagnosis A. Lymph node, right inguinal, core biopsy: - Lymph node with nonspecific reactive changes. - Flow cytometric evaluation shows no monotypic B-cell population and no aberrant T-cell population. (See below and separate flow cytometry report ([id number]) for details.) Note: The flow cytometric [...] node, right inguinal, flow cytometry (performed at [facility] ([place], [place])): No monotypic B cell population identified. Most of the lymphocytes are CD3-positive T cells including CD4-positive and CD8-positive subsets without diagnostic phenotypic aberrancy. There is no discrete population of LN63-zbzfqoth blasts identified. SPECIMEN: Right inguinal lymph node, [...] CD19, CD20, CD34, CD38, CD45, CD56, CD200, [place], Lambda, TCR gamma-delta. 05/02/2025 9:59 AM EDT [facility] Gross Description A. Lymph Node, [...] between levels. MINDI 05/02/2025 9:59 AM EDT [facility] Disclaimer Unless otherwise specified, all tissue is 10% NB formalin fixed and paraffin embedded. 05/02/2025 9:59 AM EDT [facility] Tissue Lymph node specimen / Unknown 04/30/2025 3:15 PM EDT 04/30/2025 3:52 PM EDT Tissue specimen (specimen) Topography unknown / Unknown 04/30/2025 3:23 PM EDT 04/30/2025 3:52 PM EDT Zayra Cuevas MD LAB PATHOLOGY ORDERABLE S Final Result [facility] [address] [place] [address], from Last 3 Months Insurance MEDICA[place] - [place] Care Teams Stove Mounter Relationship Specialty Start Date End Date Nai Menendez MD [address] [place] [address] PCP - General Internal Medicine 12/14/24
--- OUTSIDE RECORDS SUMMARY | 2025-07-06 08:44 | XMS_ITS | Encounter Summary ---
Author Organization [employer] Address [address] 7 [place] [address] Care Team Providers Care Building Engineer Name Role Phone Nai Menendez MD Primary Care Provider [phone] Reason for Visit * Reason Onset Date Comments Medication Question 12/01/2024 Encounter Details Date Type Department Care Team ([facility] st Contact Info) Description 12/01/2024 Telephone [facility] MEDICINE [address] [place] [address] Nai Menendez MD [address] [place], [place] [phone] Medication Question Social History Tobacco Use Types [...] has questions regarding medication prescribed on 11/30/24. Heel Cementer explained cetirizine 10mg for allergies/post nasal drip, [...] Description 08/08/2025 9:00 AM EDT Office Visit [facility] MED & PEDS [address] [place], [place] [phone] Nai Menendez MD [address] [place], [place] [phone] 08/21/2025 9:00 AM EDT Office Visit [facility] OPTOMETRY [address] [place], [place] [phone] Sydnie Negro, OD [address] [place], [place] [phone] documented as of this encounter Visit Diagnoses Not on filedocumented in this encounter Additional Health Concerns Assessment Noted Time PHQ-9 Depression Total Score: 4 02/02/20 24 9:37 AM EDT documented as of this encounter Care Teams Building Engineer Relationship Specialty Start Date End Date Nai Menendez MD [address] [place], [place] [phone] PCP - General Internal Medicine 09/25/24 Phuong Fink Flat Screen WorkerDuralumin Mechanic 12/05/24 documented as of this encounter
--- OUTSIDE RECORDS SUMMARY | 2025-07-06 08:45 | XMS_ITS | Encounter Summary ---
Author Organization [employer] Address [address] [facility] 7 [place] [address] Care Team Providers Care Cable Installer Repairer Name Role Phone Analy Chen MD Primary Care Provider [phone] Nai Menendez MD Primary Care Provider [phone] Reason for Visit * Reason Onset Date Comments Nurse Triage 02/09/2024 Encounter Details Date Type Department Care Team (Late st Contact Info) Description 02/09/2024 Telephone [facility] MEDICINE [address] [place] [address] Analy Chen MD [address] [place], [place] [phone] Nurse Triage Social History Tobacco Use Types [...] of previous surgery. No apts available in [facility] today or tomorrow. Pt is advised to come [facility] today for provider to see Pt [...] * Telephone Encounter - Jules Richar - 02/09/2024 9:10 AM EDT Symptom: Abdominal Pain - Male Outcome: Talk to a nurse or provider within 15 minutes Reason: Pain in the scrotum documented in this encounter Plan of Treatment Upcoming Encounters Date Type Department Care Team (Late st Contact Info) Description 08/08/2025 9:00 AM EDT Office Visit [facility] CHC MED & PEDS [address] [place], [place] [phone] Nai Menendez MD [address] [place] [address] 08/21/2025 9:00 AM EDT Office Visit [facility] OPTOMETRY [address] [place] [address] Tarka, Syndie, OD [address] [place] [address] documented as of this encounter Visit Diagnoses Not on filedocumented in this encounter Additional Health Concerns Assessment Noted Time PHQ-9 Depression Total Score: 4 02/02/20 24 9:37 AM EDT documented as of this encounter Care Teams Cable Installer Repairer Relationship Specialty Start Date End Date Analy Chen MD [address] [place] [address] PCP - General Internal Medicine 02/02/24 09/24/24 Nai Menendez MD [address] [place] [address] PCP - General Internal Medicine 09/25/24 Phuong Fink Assembler MovementConcrete Precast Moulder 12/05/24 documented as of this encounter
--- OUTSIDE RECORDS SUMMARY | 2025-07-06 08:45 | XMS_ITS | Encounter Summary ---
Author Organization [employer] Address [address] 7 [place] [address] Care Team Providers Care Cloth Winding Supervisor Name Role Phone Nai Menendez MD Primary Care Provider [phone] Encounter Details Date Type Department Care Team (Late st Contact Info) Description 12/21/2024 Telephone [facility] MEDICINE [address] [place] [address] Nai Menendez MD [address] [place], [place] [phone] Social History Tobacco Use Types Packs/Day Years [...] Description 08/08/2025 9:00 AM EDT Office Visit [facility] CHC MED & PEDS [address] [place] [address] Nai Menendez MD [address] [place] [address] 08/21/2025 9:00 AM EDT Office Visit [facility] OPTOMETRY [address] [place], [place] [phone] Tarka, Sydnie, OD [address] [place] [address] documented as of this encounter Visit Diagnoses Not on filedocumented in this encounter Additional Health Concerns Assessment Noted Time PHQ-9 Depression Total Score: 4 02/02/20 9:37 AM EDT documented as of this encounter Care Teams Cloth Winding Supervisor Relationship Specialty Start Date End Date Nai Menendez MD [address] [place] [address] PCP - General Internal Medicine 09/25/24 Phuong Fink Tree ScoutMembership Manager 12/05/24 documented as of this encounter
--- OUTSIDE RECORDS SUMMARY | 2025-07-06 08:45 | XMS_ITS | Encounter Summary ---
Author Organization [employer] Address [address] [place] [address] Care Team Providers Care Painter Drum Name Role Phone Nai Menendez MD Primary Care Provider [phone] Reason for Referral * Consultation (Routine) - Closed Specialty Diagnoses / Procedures Referred By Contac t Referred To Contact Optometry Diagnoses Primary hypertension Nai Menendez MD [address] [place] [address] Phone: tel: fax: [facility] OPTOMETRY [address] [place] [address] Phone: tel: fax: Referral ID Status Reason Start Date Expiration Date V isits Requested Visits Authorized [id number] Closed Consult and Treat 05/01/2025 05/01/2026 1 1 Encounter Details Date Type Department Care Team (Late st Contact Info) Description 05/01/2025 Orders Only [facility] CHC MED & PEDS [address] [place], [place] [phone] Nai Menendez MD [address] [place], [place] [phone] Primary hypertension (Primary Dx) Social History Tobacco Use Types [...] Description 08/08/2025 9:00 AM EDT Office Visit [facility] CHC MED & PEDS [address] [place] [address] Nai Menendez MD [address] [place] [address] 08/21/2025 9:00 AM EDT Office Visit [facility] OPTOMETRY [address] [place], [place] [phone] Sydnie Negro, OD [address] [place], [place] [phone] Scheduled Referrals Name Type Priority Associated Diagnoses Orde r Schedule Referral to [facility] Outpatient Referral Routine Primary hypertension Expected: 05/01/2025 (Approximate), Expires: 05/01/2026 documented as of this encounter Procedures Procedure Name Priority Date/Time Associated Diagnosis Comments XR HIPS BILATERAL 3 OR 4 VIEWS WITH OR WITHOUT PELVIS Routine 05/25/2025 7:50 AM EDT XR LUMBAR SPINE 2-3 VIEWS Routine 05/25/2025 7:50 AM EDT documented in this encounter Results * XR Lumbar Spine 2-3 Views (05/25/2025 7:50 AM EDT) Anatomical Region Laterality Modality Spine, L-spine Radiographic Griselda ging 05/25/2025 7:50 AM EDT Narrative 05/25/2025 9:16 AM EDT [facility] [address] [place] [address] Drive [address] [place] [address] XRay Report Signed Patient: Osei Fink MR#: [id number] 9 : 1970 Acct:[id number] Age/Sex: 55 / M ADM Date: 05/25/25 Loc: HO.HOSX Attending Dr: Nikky Okeefe MD Ordering Physician: Nikky Cummins Date of Service: 05/25/25 Procedure(s): XR lumbar spine 2-3V Accession Number(s): [id number] cc: Analy Chen MD; Nikky Cummins EXAMINATION: [...] Jasen Wolf MD 05/25/2025 09:13 AM EDT RP Dictated By: Jasen Rivera MD Signed By: <Electronically signed by Jasen Estrada MD in OV> 05/25/25912 DD/ 0750 TD/TT: 05/25/25 09 Plant Technical Specialist: Procedure Note Donotuseinterpreter, Image - 05/25/2025 [facility] [address] [place] [address] Drive [address] [place] [address] XRay Report Signed Patient: Osei FinkMR#: [id number] 9 : 1970Acct:[id number] Age/Sex: 55 / MADM Date: 05/25/25 Loc: [facility] Attending Dr: Nikky Okeefe MD Ordering Physician: Nikky Cummins Date of Service: 05/25/25 Procedure(s): XR lumbar spine 2-3V Accession Number(s): [id number] cc: Analy Chen MD; Nikky Cummins EXAMINATION: [...] Jasen Wolf MD 05/25/2025 09:13 AM EDT RP Dictated By: Jasen Rivera MD Signed By: <Electronically signed by Jasen Estrada MDin OV> 05/25/25 0913 DD/ 075 TD/TT: 05/25/25 09 Plant Technical Specialist: [facility] External Provider IMG XR PROCEDURES Edited Result - Final * XR Hips Bilateral 3 or 4 Views with or without Pelvis (05/25/2025 7:50 AM EDT) Anatomical Region Laterality Modality Lower Extremities, Hip Bilateral Radiograp hic Imaging 05/25/2025 7:50 AM EDT Narrative 05/25/2025 9:16 AM EDT [facility] [address] [place] [address] XRay Report Signed Patient: Osei Fink MR#: [id number] 9 : 1970 Acct:[id number] Age/Sex: 55 / M ADM Date: 05/25/25 Loc: HO.HOSX Attending Dr: Nikky Okeefe MD Ordering Physician: Nikky Cummins Date of Service: 05/25/25 Procedure(s): XR hips SHANTE min 3V Accession Number(s): [id number] cc: Analy Chen MD; Nikky Cummins EXAMINATION: [...] Chepe Cruz MD 05/25/2025 09:13 AM EDT Dictated By: Chepe Cruz MD Signed By: <Electronically signed by Chepe Cruz MD in OV> 05/25/25912 DD/ 0750 TD/TT: 05/25/25 09 Plant Technical Specialist: Procedure Note Donotuseinterpreter, Image - 05/25/2025 [facility] [address] [place] [address] XRay Report Signed Patient: Osei FinkMR#: [id number] 9 : 1970Acct:[id number] Age/Sex: 55 / MADM Date: 05/25/25 Loc: HO.HOSX Attending Dr: Nikky Okeefe MD Ordering Physician: Nikky Cummins Date of Service: 05/25/25 Procedure(s): XR hips SHANTE min 3V Accession Number(s): [id number] cc: Analy Chen MD; Nikky Cummins EXAMINATION: [...] Chepe Cruz MD 05/25/2025 09:13 AM EDT Dictated By: Chepe Cruz MD Signed By: <Electronically signed by Chepe Cruz MD in OV> 05/25/2513 DD/ 075 TD/TT: 05/25/25904 Plant Technical Specialist: [facility] External Provider IMG XR PROCEDURES Edited Result - Final documented in this encounter Visit Diagnoses Diagnosis Primary hypertension- Primary Unspecified essential hypertension documented in this encounter Additional Health Concerns Assessment Noted Time PHQ-9 Depression Total Score: 6 03/23/20 25 8:22 AM EDT documented as of this encounter Care Teams Painter Drum Relationship Specialty Start Date End Date Nai Menendez MD [address] [place] [address] PCP - General Internal Medicine 09/25/24 Phuong Fink Network Systems EngineerPress Worker Helper 12/05/24 documented as of this encounter
--- OUTSIDE RECORDS SUMMARY | 2025-07-06 08:45 | XMS_ITS | Encounter Summary ---
Author Organization [employer] Address [address] [place] [address] [place] [address] Care Team Providers Care Ict Educator Name Role Phone Nai Menendez MD Primary Care Provider [phone] Reason for Visit * Reason Onset Date Comments pre op 12/21/2024 Encounter Details Date Type Department Care Team ([facility] st Contact Info) Description 12/21/2024 Telephone [facility] CHC MED & PEDS [address] [place] [address] Nai Menendez MD [address] [place] [address] pre op Social History Tobacco Use Types [...] Yes EKG: Yes Surgeon's name: Facility name: [facility]. Procedure will be done at [facility] Surgeon's office number: [phone] Surgeon's office fax number: [phone] Contact name (person you spoke with): Kim Last office note from surgeon requested: No Send Message to Sima Ferraro and Josef Muhammad documented in this encounter Plan of Treatment Upcoming Encounters Date Type Department Care Team ([facility] st Contact Info) Description 08/08/2025 9:00 AM EDT Office Visit [facility] MED & PEDS [address] [place], [place] [phone] Nai Menendez MD [address] [place] [address] 08/21/2025 9:00 AM EDT Office Visit [facility] OPTOMETRY [address] [place], [place] [phone] Marky Sydnie, OD [address] [place] [address] documented as of this encounter Visit Diagnoses Not on filedocumented in this encounter Additional Health Concerns Assessment Noted Time PHQ-9 Depression Total Score: 4 02/02/20 24 9:37 AM EDT documented as of this encounter Care Teams Ict Educator Relationship Specialty Start Date End Date Nai Menendez MD [address] [place] [address] RAKESH Eduardo [address] PCP - General Internal Medicine 09/25/24 Phuong Fink Corporate Director Talent AssessmentDry Cleaning Machine Operator 12/05/24 documented as of this encounter
--- OUTSIDE RECORDS SUMMARY | 2025-07-06 08:45 | XMS_ITS | Encounter Summary ---
Author Organization [employer] Address [address] [facility] 7 [place] [address] Care Team Providers Care Bucket Chucker Name Role Phone Analy Chen MD Primary Care Provider [phone] Nai Menendez MD Primary Care Provider [phone] Reason for Visit * Reason Onset Date Comments ER Follow-up 02/11/2024 Encounter Details Date Type Department Care Team (Late st Contact Info) Description 02/11/[address] [facility] MEDICINE [address] [place] [address] Analy Chen MD [address] [place] [address] ER Follow-up Social History Tobacco Use Types [...] ED visit on : Date: 02/08 Hospital: [facility] Seen for: Skin Lump had surgery on 01/26 for hernia and still had pain with a lump Patient advised will forward to team nurse for follow up documented in this encounter Plan of Treatment Upcoming Encounters Date Type Department Care Team (Late st Contact Info) Description 08/08/2025 9:00 AM EDT Office Visit [facility] CHC MED & PEDS [address] [place], [place] [phone] Nai Menendez MD [address] [place] [address] 08/21/2025 9:00 AM EDT Office Visit [facility] OPTOMETRY [address] [place], [place] [address] TarkaSydnie, OD [address] [place] [address] documented as of this encounter Visit Diagnoses Not on filedocumented in this encounter Additional Health Concerns Assessment Noted Time PHQ-9 Depression Total Score: 4 02/02/20 24 9:37 AM EDT documented as of this encounter Care Teams Bucket Chucker Relationship Specialty Start Date End Date Analy Chen MD [address] [place] [address] PCP - General Internal Medicine 02/02/24 09/24/24 Nai Menendez MD [address] [place] [address] PCP - General Internal Medicine 09/25/24 Phuong Fink Ophthalmic SurgeonCement Storage Worker 12/05/24 documented as of this encounter
--- OUTSIDE RECORDS SUMMARY | 2025-07-06 08:45 | XMS_ITS | Clinical Summary ---
Author Organization [facility] Address [address] [place] [address] Care Team Providers Care Mechanic Chief Name Role Phone Unavailable Primary Care Provider [...] 01/23/2022 Imm-Zoster, Recombinant (1 of 2) 01/23/2022 Alcohol and Drug Screen 11/01/2024 Depression Annual Screen 11/01/2024 [id number] ( - season) 2025 021, 03/06/2021 Imm-Influenza (#1) 2025 [facility] [place] [address]
--- OUTSIDE RECORDS SUMMARY | 2025-07-06 08:45 | XMS_ITS | Encounter Summary ---
Author Organization [employer] Address [address] [facility] 7 [place] [address] Care Team Providers Care Business Development Engineer Name Role Phone Nai Menendez MD Primary Care Provider [phone] Reason for Visit * Reason Comments Med Refill Encounter Details Date Type Department Care Team ([facility] Contact Info) Description 04/22/2025 Refill [facility] CHC MED & PEDS [address] [place], [place] [id number] Nai Menendez MD [address] [place] [address] Subcutaneous nodule of abdominal wall Social History Tobacco Use Types Packs/Day Years [...] Description 08/08/2025 9:00 AM EDT Office Visit [facility] CHC MED & PEDS [address] [place] [address] Nai Menendez MD [address] [place] [address] 08/21/2025 9:00 AM EDT Office Visit [facility] OPTOMETRY [address] [place] [address] Tarka Sydnie, OD [address] [place] [address] documented as of this encounter Visit Diagnoses Diagnosis Subcutaneous nodule of abdominal wall documented in this encounter Additional Health Concerns Assessment Noted Time PHQ-9 Depression Total Score: 6 03/23/20 8:22 AM EDT documented as of this encounter Care Teams Business Development Engineer Relationship Specialty Start Date End Date Nai Menendez MD [address] [place] [address] PCP - General Internal Medicine 09/25/24 Phuong Fink Suction Plate Carrier CleanerWelcome Center Agent 12/05/24 documented as of this encounter
--- OUTSIDE RECORDS SUMMARY | 2025-07-06 08:45 | XMS_ITS | Encounter Summary ---
Author Organization [employer] Address [address] [facility] 7 [place] [address] Care Team Providers Care Alarm Mechanism Adjuster Name Role Phone Nai Menendez MD Primary Care Provider [phone] Encounter Details Date Type Department Care Team (Late st Contact Info) Description 01/02/2025 Orders Only [facility] [address] [place] [address] Provider, MD Darrian Social History Tobacco Use [...] Description 08/08/2025 9:00 AM EDT Office Visit [facility] CHC MED & PEDS [address] [place], [place] [phone] Nai Menendez MD [address] [place], [place] [id number] 08/21/2025 9:00 AM EDT Office Visit [facility] OPTOMETRY [address] [place], [place] [phone] TarkaSydnie, OD [address] [place] [address] documented as of this encounter Procedures Procedure Name Priority Date/Time Associated Diagnosis Comments ECG 12-LEAD Routine 01/01/2025 3:54 PM EST documented in this encounter Results * ECG 12 lead (01/01/2025 3:54 PM EST) Historical Provider ECG ORDERABLES Final Res ult documented in this encounter Visit Diagnoses Not on filedocumented in this encounter Additional Health Concerns Assessment Noted Time PHQ-9 Depression Total Score: 10 025 9:07 AM EST documented as of this encounter Care Teams Alarm Mechanism Adjuster Relationship Specialty Start Date End Date Nai Menendez MD [address] [place] [address] PCP - General Internal Medicine 09/25/24 Phuong Fink Customer Experience Retail ClerkDouble Needle Stitcher 12/05/24 documented as of this encounter
== END 2025-07-06 09:18 | disposition home or self-care (01) ==
LOC: HO.HOS 08:20
PROVIDERS: PCP Pediatrics; Visit Provider Physical Medicine & Rehabilitation
DX: M54.42 Lumbago with sciatica, left side (principal); G89.29 Other chronic pain; M25.552 Pain in left hip
CPT/HCPCS: 99213

== ENCOUNTER → 2025-07-06 08:19 | Outpatient (BNVA) | payer MEDICAID, SELFPAY | PROVIDERS: PCP Pediatrics; Visit Provider Physical Medicine & Rehabilitation | DX: M54.42 Lumbago with sciatica, left side (principal); G89.29 Other chronic pain; M25.552 Pain in left hip | CPT/HCPCS: 99212 ==

== ENCOUNTER 2025-08-09 10:18 | Outpatient (REF) | payer MEDICAID, SELFPAY ==
--- NOTE | ~2025-08-09 | XR_ITS ---
EXAMINATION: XR KNEE, LEFT CLINICAL INFORMATION: pain in left knee COMPARISON: None available. TECHNIQUE: Three views of the left knee. FINDINGS: There is no joint effusion. There is mild narrowing of medial joint space. There are small tricompartmental marginal osteophytes. XR/XR knee LT 3V IMPRESSION: Mild osteoarthritis Electronically signed by: Reji Cazares MD 08/09/2025 10:57 AM EDT
--- NOTE | ~2025-08-09 | XR_ITS ---
EXAMINATION: XR KNEE, RIGHT CLINICAL INFORMATION: knee pain COMPARISON: None available. TECHNIQUE: Three views of the right knee. FINDINGS: There is no joint effusion. There is mild narrowing of medial joint space. There are tricompartmental marginal osteophytes. There is mild lateral patellar tilt. XR/XR knee RT 3V IMPRESSION: Mild osteoarthritis. Mild lateral patellar tilt. Correlate for signs symptoms of patellar maltracking or excess lateral pressure syndrome. Electronically signed by: Reji Cazares MD 08/09/2025 10:56 AM EDT
== END 2025-08-09 10:19 | disposition home or self-care (01) ==
LOC: HO.XRAY 10:18
PROVIDERS: PCP Internal Medicine; Visit Provider Internal Medicine
DX: M25.561 Pain in right knee (principal); M25.562 Pain in left knee; G89.29 Other chronic pain
CPT/HCPCS: 73562

== ENCOUNTER → 2025-08-09 10:21 | Outpatient (BNV) | payer MEDICAID, SELFPAY | PROVIDERS: PCP Internal Medicine; Visit Provider Radiology Diagnostic Radiology | DX: M25.562 Pain in left knee (principal); M25.561 Pain in right knee | CPT/HCPCS: 73562 ==

== ENCOUNTER 2025-09-18 08:52 | Outpatient (RCR) | payer OTHER, MEDICAID, SELFPAY ==
--- NOTE | 2025-08-09 12:04 | MHC.PT.EP ---
[facility] [place] Office [place] Office [place] Office [address] Fany Gastelum [address] [phone] F: [phone] F: [phone] F: [phone] F: [phone] Physical Therapy Plan of Care Date of Evaluation: 08/09/25 Date of Surgery: Diagnosis: LUMBAGO W SCIATICA LEFT, LEFT HIP PAIN , CHRONIC LBP-> PLEASE WORK ON LOWER BACK AND LEFT HIP. MUSCULAR SPASMS, POOR ROM Assessment: 55 YO MALE REF TO PT W H/O WORK SITE INJURY TO LB/ Lt HIP LABRAL TEAR/ Lt MENISCAL INJURY (HE HAS SINCE HAD A MENISCECTOMY) ON 09/22/22- HE HAS HAD MULTIPLE XR/ MRI, INJECTIONS TO HIS LS REGION AND Lt HIP AT [facility] AND [facility]. THE Pt HAS BEEN UNABLE TO RTW OR PERF REG ADLs DUE TO CURRENT / CONTINUED SXS- HE RESIDES ALONE AND USES A CANE W AMB. OBJECTIVE FINDINGS: DECR POSTURAL AWARENESS-> (+) SCOLIOSIS, STRENGTH DEFICITS IN CORE/ PROX LEs, (+) LUMBOPELVIC ASYMM CREATING LLI EFFECT, DECR TRUNK AROM AND HIP FLEXIB, COMPENSATORY GAIT AND BODY MECH, AND PAIN IN HIS CENTRAL L/S WELL Lt POSTERIOR HIP COMPLEX (DENIES RADIC SXS AT THIS TIME). FUNCTIONALLY, THE Pt STATED HE HAS BEEN UNABLE TO PERFORM REGULAR ADLs , HOBBIES, OR RTW DUE TO PERSISTENT SXS AND PAIN. WE DISCUSSED THE Pt'S GOALS, PT POC, AND THE Pt AGREES TO PROCEED ACCORDINGLY. Frequency and Duration: The patient will be seen 2 x WK x 6 WKS Short Term Goals: INCR Pt'S POSTURAL AWARENESS / IMPROVE SELF CORRECT, BODY MECH TO REDUCE Lt HIP/ LB STRESS W ADLs DECR LS/ Lt HIP PAIN TO 3-4/10 INITIATE HEP-> PROMOTE LUMBOPELVIC SYMM WNL TRUNK AROM AND HIP FLEXIB Cipher Expert Goals: Pt INDEP W HEP AND SELF-SX MGMT TECHN IMPROVED FUNCT MOB JAMES (EFFICIENT GAIT MECH ON LEVEL AND STAIRS) -> OSWESTRY AT EVAL30/50 IMPROVE CORE / LS/ PROX LEs STRENGTH BY AT LEAST 1 GRADE IMPROVED TUG SCORE ( AT EVAL 13 SEC, W/O CANE) Treatment Plan: Modalities to reduce pain, spasms and effusion. Manual therapy to restore motion and function. Therapeutic exercise to improve strength and flexibility. Neuromuscular re-education for posture and balance. Therapeutic activities to return to functional activities of daily living. Electronically signed by: MERLYN STALEYPT Please sign and return to therapist. Thank you for your referral.
--- NOTE | 2025-09-18 11:46 | MHC.PT.DC ---
[facility] [place] Office [place] Office [place] Office [address] Fany Gastelum [address] [phone] F: [phone] F: [phone] F: [phone] F: [phone] Physical Therapy Discharge Report Diagnosis: LUMBAGO W SCIATICA LEFT, LEFT HIP PAIN , CHRONIC LBP-> PLEASE WORK ON LOWER BACK AND LEFT HIP. MUSCULAR SPASMS, POOR ROM Date of Surgery: Date of Evaluation: 08/09/25 Date of Discharge: 09/18/25 Treatments to Date: 9 Cancellations to Date: 1 No Shows to Date: Discharge Status: Improved Function Independent with HEP Discharge Summary: IGNACIO SUBJECTIVELY DOES NOT FEEL HE HAS MADE ANY PROGRESS WITH PT INTERVENTION.. HOWEVER, OBJECTIVELY, HEHAS IMPROVED STRENGTH IN HIS LUMBOPELVIC/ PROX LEs EVIDENT W WFL SYMMETRY, MORE EFFICIENT GAIT MECHANICS, AND OVERALL REDUCED GUARDED FUNCTIONAL MOBILITY. HE IS DISCHARGED THIS DATE , HIS INSURANCE END DATE IS 09/21/25-> THE Pt HAS A THOROUGH HEP AND WE HAVE HIGHLIGHTED THESE IMPROVED FUNCTIONAL MOBILITY ADVANCES AND THAT IGNACIO'S PAIN MAY NOT COMPLETELY RESOLVE , BUT CAN BE MANAGED W HIS HEP. Electronically signed by: MERLYN STALEY, PT Please sign and return to therapist. Thank you for your referral.
== END 2025-09-18 11:46 | disposition home or self-care (01) ==
LOC: HO.PT 08:52
PROVIDERS: PCP Internal Medicine; Visit Provider Physical Medicine & Rehabilitation
DX: M54.42 Lumbago with sciatica, left side (principal); M25.552 Pain in left hip; G89.29 Other chronic pain
CPT/HCPCS: 97110; 97112; 97140; 97163; 97530

== ENCOUNTER 2025-10-09 12:37 | Emergency (ER) | payer MEDICAID, SELFPAY ==
[2025-10-09 12:53] VITALS: BP 133/83; PULSE 86; RESP 16; TEMP 36.7; O2SAT 96; BMI 24.9
--- NOTE | 2025-10-09 12:57 | ED.GENADULT ---
HPI - General Adult General Chief complaint: Abdominal Pain Stated complaint: Swelling Of Limb History of Present Illness HPI narrative: patient left before completion of treatment by ED provider Related Data Home Medications ?Medication ?Instructions ?Recorded ?Confirmed diclofenac sodium 1 % topical gel topical TID 06/13/24 07/06/25 gabapentin 300 mg capsule 300 mg PO TID 06/13/24 07/06/25 lidocaine 5 % topical patch 1 patch topical DAILY 06/13/24 07/06/25 lisinopril 20 mg tablet 20 mg PO DAILY 06/13/24 07/06/25 mirtazapine 7.5 mg tablet 7.5 mg PO BEDTIME 06/13/24 07/06/25 omeprazole 20 mg capsule,delayed 20 mg PO BID 06/13/24 07/06/25 release sumatriptan succinate 25 mg tablet mg PO DAILY 06/13/24 07/06/25 tramadol 50 mg tablet mg PO 05/25/25 07/06/25 magnesium oxide 400 mg (241.3 mg 400 mg PO DAILY 07/06/25 07/06/25 magnesium) tablet riboflavin (vitamin B2) 400 mg 400 mg PO DAILY 07/06/25 07/06/25 tablet Previous Rx's ?Medication ?Instructions ?Recorded tadalafil 10 mg tablet (Cialis) 10 mg PO DAILY PRN sexual activity 08/01/24 30 days #30 tabs Allergies Allergy/AdvReac Type Severity Reaction Status Date / Time No Known Allergies Allergy Verified 10/09/25 12:55 [facility] Past Medical History Medical History Subclinical hyperthyroidism Palpitation Shortness of breath Chest pain Hernia No known health problems Surgical History Hx of hernia repair H/O knee surgery Family History Family History Maternal Grandmother Heart problem Paternal Grandmother Heart problem Social History Social History Alcohol intake: never Patient Tobacco Use Status: Never used Tobacco Advance Directives: No Advance Directives Information Provided: No Do you have a plan to hurt others: No Plan Current occupational status: unemployed Physical Exam ED Vital Signs: Vital Signs - 24 hr 10/09/25 12:53 Temperature 98.1 F Pulse Rate 86 Respiratory Rate 16 Blood Pressure 133/83 Pulse Oximetry 96 Oxygen Delivery Method Room Air BMI result Body Mass Index 24.9 Course Course Course Narrative: GINA: 55-year-old male presents to ED for bilateral lower abdominal pain since yesterday. Mostly now in the right lower quadrant. Labs UA ordered Medical Decision Making Lab Data 10/09/25 13:08 10/09/25 13:08 Labs: Lab Results 10/09/25 Range/Units 13:08 WBC 5.8 (4.8-10.8) X10*3/uL RBC 5.14 (4.60-5.80) X10*6/uL Hgb 15.6 (14.0-18.0) g/dl Hct 46.1 (42.0-52.0) % MCV 89.7 (80.0-98.0) fL MCH 30.4 (27.0-33.0) pg MCHC 33.8 (31.0-36.0) g/dl RDW 12.3 (11.0-16.0) % Plt Count 236 (160-400) X10*3/uL MPV 9.8 (9.4-12.4) fL Immature Gran % (Auto) 0.2 (0.0-0.4) % Neut % (Auto) 57.9 (45-73) % Lymph % (Auto) 29.1 (20-40) % [place] % (Auto) 11.1 H (2-11) % Eos % (Auto) 1.2 (0-4) % Baso % (Auto) 0.5 (0-2) % Lymph # (Auto) 1.7 (1.2-4.9) X10*3/uL [place] # (Auto) 0.7 (0.1-1.2) X10*3/uL Eos # (Auto) 0.1 (0.0-0.4) X10*3/uL Baso # (Auto) 0.0 (0.0-0.2) X10*3/uL Abs Immat Gran (auto) 0.01 (0.00-0.03) X10*3/uL Absolute Neuts (auto) 3.4 (2.0-8.3) x10*3/uL Absolute Nucleated RBC 0.000 (0.0-0.012) X10*3/uL Nucleated RBC % (auto) 0.0 (0.0-0.2) /100WBC Sodium 142 (135-145) mmol/L Potassium 4.0 (3.3-5.1) mmol/L Chloride 113 H (96-108) mmol/L Carbon Dioxide 27 (22-29) mmol/L Anion Gap 6 L (12-20) BUN 21 H (9-16) mg/dL Creatinine 0.87 (0.5-1.4) mg/dL Estim Creat Clear Calc 88.6 Estimated GFR > 60 Random Glucose 107 (60-115) mg/dL Calcium 9.3 (8.4-10.2) mg/dL Total Bilirubin 0.9 (0.0-1.0) mg/dL AST 20 (5-37) U/L ALT 26 (0-40) U/L Alkaline Phosphatase 52 (39-117) U/L Total Protein 7.2 (6.5-8.0) g/dL Albumin 4.3 (3.5-5.0) g/dL Lipase 33 (8-78) U/L Discharge Plan Discharge Clinical Impression: Abdominal pain Patient Disposition: Left W/O Completing Treatment Prescriptions: No Action lisinopril 20 mg tablet 20 mg PO DAILY gabapentin 300 mg capsule 300 mg PO TID lidocaine 5 % adhesive patch,medicated 1 patch topical DAILY omeprazole 20 mg capsule,delayed release(DR/EC) 20 mg PO BID mirtazapine 7.5 mg tablet 7.5 mg PO BEDTIME sumatriptan succinate 25 mg tablet PO DAILY diclofenac sodium 1 % gel topical TID tadalafil [Cialis] 10 mg tablet 10 mg PO DAILY PRN (Reason: sexual activity) 30 Days Qty: 30 2RF Rx Instructions: Take 1-2 tablets administer approximately 30-60min before sexual activity; do not use more than 2 tablets per 24hrs BIN PCN Group [facility] [address] [id number] tramadol 50 mg tablet PO magnesium oxide 400 mg (241.3 mg magnesium) tablet 400 mg PO DAILY riboflavin (vitamin B2) 400 mg tablet 400 mg PO DAILY Discharge Date/Time: 10/09/25 18:47
[2025-10-09 13:15] LABS: Hematocrit 46.1 % (42.0-52.0); Hemoglobin 15.6 g/dl (14.0-18.0); Imm Gran Abs Auto 0.01 X10*3/uL (0.00-0.03); Imm Gran Pct Auto 0.2 % (0.0-0.4); Lymphocytes Absolute Auto 1.7 X10*3/uL (1.2-4.9); MANUAL DIFF FLAG NO; Mean Corpuscular HGB Conc 33.8 g/dl (31.0-36.0); Mean Corpuscular Hemoglobin 30.4 pg (27.0-33.0); Mean Corpuscular Volume 89.7 fL (80.0-98.0); NRBC Abs Auto 0.000 X10*3/uL (0.0-0.012); NRBC Pct Auto 0.0 /100WBC (0.0-0.2); Platelet Count 236 X10*3/uL (160-400); Red Blood Count 5.14 X10*6/uL (4.60-5.80); White Blood Count 5.8 X10*3/uL (4.8-10.8)
[2025-10-09 13:37] LABS: Alanine Aminotransferase 26 U/L (0-40); Albumin Level 4.3 g/dL (3.5-5.0); Alkaline Phosphatase 52 U/L (39-117); Anion Gap 6 (12-20); Aspartate Amino Transferase 20 U/L (5-37); Blood Urea Nitrogen 21 mg/dL (9-16); Calcium 9.3 mg/dL (8.4-10.2); Carbon Dioxide 27 mmol/L (22-29); Chloride 113 mmol/L (96-108); Creatinine Clr Calc Pharmacy 88.6; Estimated Glomerular Filt Rate > 60; Lipase 33 U/L (8-78); Potassium 4.0 mmol/L (3.3-5.1); Sodium 142 mmol/L (135-145); Total Protein 7.2 g/dL (6.5-8.0)
--- OUTSIDE RECORDS SUMMARY | 2025-10-09 18:39 | XMS_ITS | Encounter Summary ---
Author Organization [facility] Address [address] [place] [address] Care Team Providers Care Press Leader Name Role Phone Nai Menendez MD Primary Care Provider [phone] Reason for Visit * Reason Comments Abdominal Pain PT reports that he t hinks he has a strangulated hernia. PT states he has had hernia repaired x 2. States the pain is 10 Encounter Details Date Type Department Care Team (Late st Contact Info) Description 10/09/2025 6:39 PM EST Emergency [facility] Emergency [address] [place] [address] Social History Tobacco Use Types Packs/Day Years Used Date Smoking Tobacco: Never Smokeless Tobacco: Never Interpersonal Safety Answer Date Record ed Physical Abuse Unrecognized value 01/18/2025 Verbal Abuse Unrecognized value 01/18/2025 Sex and Gender Information Value Date Recorded Sex Assigned at Male 12/27/2024 2:37 PM EST Legal Sex Male 11:39 AM EDT Gender Identity Male 12/27/2024 2:37 PM EST Sexual Orientation Straight 12/27/2024 2: 37 PM EST documented as of this encounter Last Filed Vital Signs Vital Sign Reading Time Taken Comments Blood Pressure 155/97 10/09/2025 10:15 PM EST Pulse 58 10/09/2025 10:15 PM EST Temperature 36.6 C (97.9 F) 10/09/2025 10:15 PM EST Respiratory Rate 16 10/09/2025 6:51 PM EST Oxygen Saturation 100% 10/09/2025 10:15 PM EST Inhaled Oxygen Concentration - - Weight 67.1 kg (148 lb) 10/09/2025 6:51 PM EST Height 167.6 cm (5' 6 ) 10/09/2025 6:51 PM EST Body Mass Index 23.89 10/09/2025 6:51 PM EST documented in this encounter Functional Status * Calculated C-SSRS Risk Score (Lifetime/Recent) Answer Date of Assessment Author No Risk Indicated 10/09/2025 6:48 PM EST Temi Lauren RN * [place] Suicide Severity Rating Scale (Screener/Recent Self-Report) Question Answer Date of Assessment Author 1. Wish to be (Past 1 Month) No 025 6:48 PM EST Temi Lauren RN 2. Non-Specific Active Suici nixon Thoughts (Past 1 Month) No 10/09/2025 6:48 PM EST Raghavendra Lauren RN 6. Suicidal Behavior (Lifetime) No 6:48 PM EST Temi Lauren RN documented as of this encounter Progress Notes * Temi Lauren RN - 10/09/2025 6:50 PM EST Pt states he is concerned he has a strangulated hernia, reports RLQ pain and constipation, +nausea x 3 days. Denies fevers or chills Hx of hernia in december 2024 documented in this encounter Plan of Treatment Pending Results Name Type Priority Associated Diagnoses Date /Time US Scrotum and Contents Imaging STAT 1 12/10/2024 10:49 PM EST Scheduled Orders Name Type Priority Associated Diagnoses Orde r Schedule Urinalysis with reflex microscopic and culture Lab STAT Once for 1 Occurrences starting 10/09/2025 until 10/09/2025 CT Abdomen Pelvis w Contrast Imaging STAT Once for 1 Occur rences starting 10/09/2025 until 10/09/2025 US Scrotum and Contents Imaging STAT O nce for 1 Occurrences starting 10/09/2025 until 10/09/2025 Urinalysis with reflex microscopic and culture Lab Routine Once for 1 Occurrences starting 10/09/2025 until 10/09/2025 Tate urine culture tube Lab Routine O nce for 1 Occurrences starting 10/09/2025 until 10/09/2025 documented as of this encounter Procedures Procedure Name Priority Date/Time Associated Diagnosis Comments CBC WITH AUTO DIFFERENTIAL STAT 10/09/2025 6:56 PM EST CBC AND DIFFERENTIAL STAT 10/09/2025 6:56 PM EST LIPASE STAT Add-on 10/09/2025 6:56 PM EST COMPREHENSIVE METABOLIC PANEL STAT 10/09/2025 6:56 PM EST documented in this encounter Results * Lipase (10/09/2025 6:56 PM EST) [facility] Lipase 40 12 - 53 unit/L 10/09/2025 10:29 PM EST [facility] Blood Venous blood specimen / Unknown Venipuncture / Unknown 10/09/2025 6:56 PM EST 10/09/2025 7:34 PM EST us Sydnie HERRERA LAB BLOOD ORDERABLES Final Res ult [facility] [address] [place] [address], [place] [phone] * CBC auto differential (10/09/2025 6:56 PM EST) [facility] WBC 7.4 4.8 - 10.8 K/mcL LAB HEMETOLOGY METHOD 10/09/2025 7:45 PM EST [facility] RBC 5.20 4.50 - 5.50 M/mcL LAB HEMETOLOGY METHOD 10/09/2025 7:45 PM EST [facility] Hemoglobin 15.5 13.5 - 17.5 g/dL LAB HEMETOLOGY METHOD 10/09/2025 7:45 PM EST [facility] Hematocrit 47.3 42.0 - 54.0 % LAB HEMETOLOGY METHOD 10/09/2025 7:45 PM [facility] MCV 90.3 79.0 - 98.0 FL LAB HEMETOLOGY METHOD 10/09/2025 7:45 PM [facility] MCH 29.6 27.0 - 32.0 pcg LAB HEMETOLOGY METHOD 10/09/2025 7:45 PM [facility] MCHC 32.8 32.0 - 37.0 g/dL LAB HEMETOLOGY METHOD 10/09/2025 7:45 PM [facility] RDW 12.4 11.0 - 15.0 % LAB HEMETOLOGY METHOD 10/09/2025 7:45 PM [facility] Platelets 246 130 - 400 K/mcL LAB HEMETOLOGY METHOD 10/09/2025 7:45 PM [facility] MPV 10.0 7.0 - 11.0 FL LAB HEMETOLOGY METHOD 10/09/2025 7:45 PM [facility] NRBC 0.0 <1.0 % LAB HEMETOLOGY METHOD 10/09/2025 7:45 PM [facility] NRBC Absolute 0.00 <0.10 K/mcL LAB HEMETOLOGY METHOD 10/09/2025 7:45 PM [facility] Neutrophils Relative 57.2 % LAB HEMETOLOGY METHOD 10/09/2025 7:45 PM [facility] Lymphocytes Relative 32.1 % LAB HEMETOLOGY METHOD 10/09/2025 7:45 PM [facility] Monocytes Relative 8.4 % LAB HEMETOLOGY METHOD 10/09/2025 7:45 PM [facility] Eosinophils Relative 1.5 % LAB HEMETOLOGY METHOD 10/09/2025 7:45 PM [facility] Basophils Relative 0.5 % LAB HEMETOLOGY METHOD 10/09/2025 7:45 PM EST [facility] Immature Granulocytes Relative 0.3 % LAB HEMETOLOGY METHOD 10/09/2025 7:45 PM EST [facility] Neutrophils Absolute 4.20 1.50 - 7.00 K/mcL LAB HEMETOLOGY METHOD 10/09/2025 7:45 PM [facility] Lymphocytes Absolute 2.36 1.00 - 5.00 K/mcL LAB HEMETOLOGY METHOD 10/09/2025 7:45 PM [facility] Monocytes Absolute 0.62 0.20 - 1.00 K/mcL LAB HEMETOLOGY METHOD 10/09/2025 7:45 PM [facility] Eosinophils Absolute 0.11 0.00 - 0.50 K/mcL LAB HEMETOLOGY METHOD 10/09/2025 7:45 PM [facility] Basophils Absolute 0.04 0.00 - 0.20 K/mcL LAB HEMETOLOGY METHOD 10/09/2025 7:45 PM [facility] Immature Granulocytes Absolute 0.02 0.00 - 0.03 K/mcL LAB HEMETOLOGY METHOD 10/09/2025 7:45 PM [facility] Blood Venous blood specimen / Unknown Venipuncture / Unknown 10/09/2025 6:56 PM EST 10/09/2025 7:34 PM EST us Yovanny García MD LAB BLOOD ORDERABLES Final Resu lt [facility] [address] [place] [address], * (ABNORMAL) Comprehensive metabolic panel (10/09/2025 6:56 PM EST) Sodium 143 133 - 145 mmol/L 10/09/2025 8:02 PM EST [facility] Potassium 4.3 3.5 - 5.5 mmol/L 10/09/2025 8:02 PM [facility] Chloride 105 96 - 110 mmol/L 10/09/2025 8:02 PM [facility] CO2 30 21 - 32 mmol/L 10/09/2025 8:02 PM [facility] Anion Gap 8 3 - 11 10/09/2025 8:02 PM [facility] Glucose 103(H) 70 - 100 mg/dL 10/09/2025 8:02 PM [facility] BUN 20 5 - 25 mg/dL 10/09/2025 8:02 PM [facility] Creatinine 1.04 0.70 - 1.30 mg/dL 10/09/2025 8:02 PM [facility] eGFR 86 >=60 mL/min/1. 73m2 10/09/2025 8:02 PM [facility] Comment:Calculation based on the Chronic Kidney Disease Epidemiology Collaboration (CKD-EPI) equation refit without adjustment for race. BUN/Creatinine Ratio 19.2 10/09/2025 8:02 PM [facility] Calcium 9.2 8.5 - 10.5 mg/dL 10/09/2025 8:02 PM [facility] AST (SGOT) 16 10 - 42 unit/L 10/09/2025 8:02 PM [facility] ALT (SGPT) 21 10 - 60 unit/L 10/09/2025 8:02 PM [facility] Alkaline Phosphatase 59 42 - 121 unit/L 10/09/2025 8:02 PM [facility] Total Protein 7.4 6.0 - 8.0 g/dL 10/09/2025 8:02 PM [facility] Albumin 4.4 3.2 - 5.0 g/dL 10/09/2025 8:02 PM EST [facility] Total Bilirubin 1.0 0.0 - 1.4 mg/dL 10/09/2025 8:02 PM EST [facility] Blood Venous blood specimen / Unknown Venipuncture / Unknown 10/09/2025 6:56 PM EST 10/09/2025 7:34 PM EST us Yovanny García MD LAB BLOOD ORDERABLES Final Resu lt [facility] [address] [place] [address], [place] [phone] documented in this encounter Visit Diagnoses Not on filedocumented in this encounter Orders IV Count Last Ordered Date First Orde red Date INSERT PERIPHERAL IV 1 10/09/2025 documented in this encounter Care Teams Press Leader Relationship Specialty Start Date End Date Nai Menendez MD [address] [place] [address] PCP - General Internal Medicine 12/14/24 documented as of this encounter
--- OUTSIDE RECORDS SUMMARY | 2025-10-09 23:05 | XMS_ITS | Encounter Summary ---
Author Organization [employer] Address [address] [facility] 7 [place] [address] Care Team Providers Care Ink Jet Operator Name Role Phone Analy Chen MD Primary Care Provider [phone] Nai Menendez MD Primary Care Provider [phone] Reason for Visit * Reason Onset Date Comments Nurse Triage 09/12/2024 Encounter Details Date Type Department Care Team (Late st Contact Info) Description 09/12/2024 Telephone [facility] [address] [place] [address] Analy Chen MD [address] [place] [address] Nurse Triage Social History Tobacco Use Types [...] ([facility] st Contact Info) Description 11/13/2025 11:30 AM EST Office Visit [facility] MED [facility] PED[facility] [address] [place] [address] Nai Menendez MD [address] [place] [address] documented as of this encounter Visit Diagnoses Not on filedocumented in this encounter Additional Health Concerns Assessment Noted Time PHQ-9 Depression Total Score: 4 02/02/20 24 9:37 AM EDT documented as of this encounter Care Teams Ink Jet Operator Relationship Specialty Start Date End Date Analy Chen MD [address] [place] [address] PCP - General Internal Medicine 02/02/24 09/24/24 Nai Menendez MD [address] [place] [address] PCP - General Internal Medicine 09/25/24 Phuong Fink Beamer HandRailroad Maintenance Clerk 12/05/24 documented as of this encounter
--- OUTSIDE RECORDS SUMMARY | 2025-10-09 23:05 | XMS_ITS | Continuity of Care Document ---
Author Organization [place] - [facility], [facility] Address [address] [place] [address] Care Team Providers Care Boring Mill Operator For Metal Name Role Phone WAGNER NINA Primary Care Provider Assessment Encounter Date Assessment Date Assessment LastModified by Organization Details LastModified Time 08/17/2025 08/17/2025 55 year old male presents for follow up of vestibular migraine and evaluation of throat irritation. Migraine episodes have slightly improved in terms of severity and frequency after starting supplementation with magnesium and riboflavin. Patient was encouraged to keep a migraine diary to better assist with identifying and eliminating potential triggers, including dietary and environmental. Consider referral to neurology for additional workup and intervention if no significant changes with conservative measures. A new order for the MRI scan was also placed to assess his left-sided tinnitus. We will discuss the results once they become available for review. Fiberoptic laryngoscopy is notable for cobblestoning of the posterior pharynx and bilateral arytenoid edema, consistent with his history of acid reflux. Patient does have a hiatal hernia that was seen on prior imaging and takes daily omeprazole with mild relief. We will refer to gastroenterology for further management. Otherwise, he may return to our office as needed. All questions were answered. [email or web address] Not available 08/17/2025 13:57:28 Plan of Treatment Reminders Order Date Submit Date Provider Last Modified By Organization Details Last Modified Time Details Appointments None record ed. Lab None record ed. Referral gastro entero logist referr wes Pickard ce of refrac tory GERD on laryng oscopy ; histor y of hiatal hernia seen on prior camilla hernandez Please evalua te 2024 025 [facility], [address], [place], [address], 15:18:36 Procedures None record ed. Surgeries None record ed. Imaging MRI, brain + international logistics manager al audito ry canal, w/wo contra st - next availa ble... .IAC protoc ol 2024 025 [facility] ([place] [facility]), [address] [facility], [place], [address], 12:26:33 Medication Orders None record ed. Patient TargetsNo targets recorded. Patient InstructionsNo instructions recorded. Reason for Referral Representative Phlebotomy Services Referral for Gastroesophageal reflux disease without esophagitis Evidence of refractory GERD on laryngoscopy; history of hiatal hernia seen on prior imaging. Please evaluate Referring Physician: Kim Mortensen, Otolaryngology, Encounter Date: 08/17/2025 Problems Name Problem SNOMED Code Status Onset Date Resolution Date Notes Provider Name and Address Organization Details Recorded Time Bilateral tinnitus 3281499934700 Active 2024 BRENNAN TEAGUE [address] [address], [place], [address], [facility] - [facility] 15:08:00 Abnormal auditory perception 15468735 Active 2024 BRENNAN TEAGUE [address] [address], [place], [address], [facility] - [facility] 15:08:25 Dizziness 672363124 Active 2024 PATRICIA ALEXIS MD [address] [address], [facility], [address], [place] - [facility] 5 15:43:41 Tinnitus of left ear 1809273573258 Active 2024 PATRICIA ALEXIS MD [address] [address], [facility] [place], [address], [place] - [facility] 5 15:43:47 Migraine variants 827357199 Active 2024 PATRICIA ALEXIS MD [address] [address], [place], [address], [facility] - [facility] [place] 15:45:28 Migraine 66523209 Active 2024 PATRICIA ALEXIS MD [address] [address], [place], [address], [facility] - [facility] [place] 15:45:34 Frequent headache 346028144 Active 2024 PATRICIA ALEXIS MD [address] [address], [place], [address], [facility] - [facility] 15:45:34 Allergic rhinitis 87404274 Active 2024 Jordan Bull DO [address] [address], [place], [address], [facility] - [facility] 16:04:21 Throat irritation 302259581 Active 2024 SHARON PEÑA [address] [address], [place], [address], [facility] - [facility] 13:00:13 Gastroesoph ageal reflux disease without esophagitis 199868354 Active 2024 SHARON PEÑA [address] [address], [place], [address], [facility] - [facility] 13:00:22 Hiatal hernia 82939469 Active 2024 SHARON PEÑA [address] [address], [place], [address], [facility] - [facility] 13:00:32 Problem Notes None recorded. Procedures Surgical History Date Name Laterality Status Provider Name and Address Organization Details Recorded Time FOL_DP completed SHARON PEÑA [address] [facility],[address] [address], [place], [address], [facility] - [facility] 08/17/2025 11:12:14 Comp Audio with Tymps - 77564 & 83519 completed BRENNAN TEAGUE [address] [facility], [place], [address], [facility] - [facility] 06/04/2025 15:07:50 arthroscopy of knee completed PATRICIA THAPA MD [address] [facility],[address], [address], [facility] - [facility] 06/04/2025 15:47:37 repair of inguinal hernia completed PATRICIA THAPA MD [address] [facility], [place], [address], [facility] - [facility] 06/04/2025 15:48:05 Imaging Results None recorded. Procedure Notes None recorded. Medical Equipment None Reported. Allergies No known drug allergies Medications Name Sig Start Date Stop Date Status Note LastModified by Organization Details LastModified Time buspirone 5 mg tablet TAKE ONE TABLET TWICE DAILY active Not Available Not Available No t Available cetirizine 10 mg tablet TAKE 1 TABLET BY MOUTH DAILY active Not Available Not Available No t Available meloxicam 15 mg tablet active Not Available Not Available Not Available sumatriptan 25 mg tablet active Not Available Not Available Not Available lisinopril 20 mg tablet active Not Available Not Available Not Available hydroxyzine pamoate 50 mg capsule TAKE 1 TO 2 CAPSULES BY MOUTH AT BEDTIME active Not Available Not Available No t Available amlodipine 5 mg tablet active Not Available Not Available Not Available acetaminoph en 500 mg tablet TAKE 2 TABLETS BY MOUTH EVERY 8 HOURS 08/17 completed Not Available Not Available Not Available acetaminoph en ER 650 mg tablet,exte nded release active Not Available Not Available Not Available magnesium oxide 400 mg (241.3 mg magnesium) tablet TAKE 1 TABLET BY MOUTH EVERY DAY active Not Available Not Available No t Available lidocaine 5 % topical patch APPLY 1 PATCH TOPICALLY EVERY MORNING AND REMOVE AFTER 12 HOURS active Not Available Not Available No t Available docusate sodium 100 mg capsule TAKE 1 CAPSULE BY MOUTH 2 TIMES A DAY 08/17 completed Not Available Not Available Not Available gabapentin 300 mg capsule TAKE 1 CAPSULE BY MOUTH THREE TIMES DAILY 08/17 completed Not Available Not Available Not Available omeprazole 20 mg capsule,del ayed release active Not Available Not Available Not Available fentanyl 25 mcg/hr transdermal patch 08/17 completed Not Available Not Available Not Available tadalafil 5 mg tablet TAKE ONE TABLET ONCE DAILY active Not Available Not Available No t Available tadalafil 10 mg tablet TAKE 1-2 TABLETS BY MOUTH 30-60 MINUTES BEFORE ACTIVITY DO NOT USE MORE THAN 2 TABLETS PER 24 HOURS 08/17 completed Not Available Not Available Not Available mirtazapine 7.5 mg tablet active Not Available Not Available Not Available chlorhexidi ne gluconate 0.12 % mouthwash SWISH AND SPIT WITH 15ML BY MOUTH EVERY MORNING AND EVERY EVENING FOR 1 MINUTE DO NOT EAT OR DRINK FOR UP TO 30 MINUTES AFTER active Not Available Not Available No t Available sodium fluoride 1.1 %-potassium nitrate 5 % dental paste active Not Available Not Available Not Available diclofenac 1 % topical gel APPLY TOPICALLY TO THE AFFECTED AREA THREE TIMES DAILY active Not Available Not Available No t Available riboflavin (vitamin B2) 400 mg tablet TAKE 1 TABLET BY MOUTH EVERY DAY active Not Available Not Available No t Available magnesium 400 mg (as magnesium oxide) tablet Take 1 tablet every day by oral route. 2024 active Not Available Not Available Not Avai lable Vitals None Recorded Social History None recorded. Functional Status Question Answer Note LastModified by Organization D etails LastModified Time What is your level of alcohol consumption? None [email or web address] Information not available 06/04/2025 Mental Status None recorded. Family History Nothing Reported. Medical History Condition Response Migraines Y Arthritis Y Hypertension Y Anxiety Y Past Encounters Encounter ID Performer Location Encounter Start Date Encounter Closed Date Diagnosis/Indication Diagnosis SNOMED-CT Code Diagnosis ICD10 Code Diagnosis IMO Codes Diagnosis Note [id number] SHARON PÑEA [facility] of [address] [address] 08/17/2025 08:50:35 08/17/2025 10:15:15 Tinnitus of left ear 7466640659 106 H93.12 513071 Migraine variants 504205 005 G43.809 52126824 Throat irritation 684472 007 J39.2 13616976 Gastroesop hageal reflux disease without esophagitis 279294339 K21.9 394184 Hiatal hernia 16904675 K 44.9 9218 Health Concerns Section Related Observation LastModified by Organization Detai ls LastModified Time None Recorded Concern Status LastModified by Organization Details LastModified Time None Recorded Payers Encounter Date Sequence Insurance Name Policy Number Policy Sandoval Covered Member ID Sandoval Member ID Guarantor Name 08/17/2025 1 [place]: [facility] Osei Fink [id number] Osei Fink Notes Date Note Type Note Provider Name and Address Organization Details Recorded Time 08/17/2025 text/html ROS as noted in the HPI 55 year old male presents for follow up of vestibular migraine. Patient is doing slightly better after starting supplementation with magnesium and riboflavin in terms of severity and frequency. He states his migraines typically manifest as a heartbeat sensation in his eyes that alternates between sides or a hammer to the head. Patient also reports hearing waves in his ears with head movements and occasional echoing. Unfortunately, he never received a call regarding the MRI scan. Patient has an additional complaint of globus sensation and throat irritation. 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 Marijuana use but no tobacco. No known environmental allergies, though he takes cetirizine with some relief. History of acid reflux and takes omeprazole 20 mg daily. Diagnosed with a hiatal hernia on imaging during an emergency department visit for acid reflux exacerbation. PATRICIA THAPA MD [address] [place] [address], [place], [address], [place] - [facility] 08/17/2025 14:59:35
--- OUTSIDE RECORDS SUMMARY | 2025-10-09 23:05 | XMS_ITS | Encounter Summary ---
Author Organization [employer] Address [address] [facility] 7 [place] [address] Care Team Providers Care Razor Grinder Name Role Phone Nai Menendez MD Primary Care Provider [phone] Reason for Visit * Reason Onset Date Comments Medication Question 12/01/2024 Encounter Details Date Type Department Care Team ([facility] st Contact Info) Description 12/01/2024 Telephone [facility] [address] [place] [address] Nai Menendez MD [address] [place], [place] [phone] Medication Question Social History Tobacco Use Types [...] has questions regarding medication prescribed on 11/30/24. Perinatal Coordinator explained cetirizine 10mg for allergies/post nasal drip, [...] Care Team (Late st Contact Info) Description 11/13/2025 11:30 AM EST Office Visit [facility] MED & PEDS [address] [place] [address] Nai Menendez MD [address] [place] [address] documented as of this encounter Visit Diagnoses Not on filedocumented in this encounter Additional Health Concerns Assessment Noted Time PHQ-9 Depression Total Score: 4 02/02/20 24 9:37 AM EDT documented as of this encounter Care Teams Razor Grinder Relationship Specialty Start Date End Date Nai Menendez MD [address] [place] [address] PCP - General Internal Medicine 09/25/24 Phuong Fink Proposal Development ManagerJunior Systems Engineer 12/05/24 documented as of this encounter
--- OUTSIDE RECORDS SUMMARY | 2025-10-09 23:05 | XMS_ITS | Encounter Summary ---
Author Organization [employer] Address [address] [facility] 7 [place] [address] Care Team Providers Care Sexer Name Role Phone Nai Menendez MD Primary Care Provider [phone] Encounter Details Date Type Department Care Team (Late st Contact Info) Description 03/23/2025 Orders Only [facility] [address] [place] [address] Provider, MD Darrian Social History Tobacco Use [...] annoyed or irritable 0 03/23/2025 8:23 AM Mrasha Marion RN Feeling afraid as if somethi ng awful might happen 0 03/23/2025 8:23 AM Marsha Marion RN ASUNCION-7 Total Score 5 03/23/2025 8:23 AM Marsha Marion RN documented as of this encounter Plan of Treatment Upcoming Encounters Date Type Department Care Team (Late st Contact Info) Description 11/13/2025 11:30 AM EST Office Visit [facility] MED & PEDS [address] [place], [place] [phone] Nai Menendez MD [address] [place] [address] documented as of this encounter Procedures Procedure [...] documented as of this encounter Care Teams Sexer Relationship Specialty Start Date End Date Nai Menendez MD [address] [place] [address] PCP - General Internal Medicine 09/25/24 Phuong Fink Beauty ArtistNailing Machine Operator 12/05/24 documented as of this encounter
--- OUTSIDE RECORDS SUMMARY | 2025-10-09 23:05 | XMS_ITS | Clinical Summary ---
Author Organization [address] [facility] Address [address] [place] [address] Phone Care Team Providers Care Precast Worker Name Role Phone Nai Menendez MD Primary Care Provider [phone] Allergies No known active allergies Medications amLODIPine [...] Encounters Date Type Department Care Team Description 10/09/2025 6:39 PM EST Emergency [facility] Emergency [address] [place] [address] from Last 3 Months Surgical History Surgery [...] Orientation Straight 12/27/2024 2: 37 PM EST Last Filed Vital Signs Vital Sign Reading [...] Mass Index 23.89 10/09/2025 6:51 PM EST Plan of Treatment Health Maintenance Due Date Last Done Comments Hepatitis A Vaccines (1 of 2 - Risk 2-dose series) 01/23/1991 Hepatitis B Vaccines (1 of 3 - 19+ 3-dose series) 01/23/1991 RSV Immunization Adult Patients (1 - Risk 50-74 years 1-dose series) 01/23/2022 Zoster Vaccines (1 of 2) 01/23/2022 Hepatitis C Screening 08/09/2024 Social Influencers of Health Screening 08/09/2024 Depression Screening 11/01/2024 COVID-19 Vaccine (3 - 2024-2 6 season) 2025 04/03/2021, 03/06/2021 Influenza Vaccine (#1) 2025 Hypertension/CHF/CAD Annual BMP Blood Test 10/09/2026 10/09/2025, 01/11/2025, 09/25/2024 Colorectal Cancer Screening: FIT-DNA (Cologuard) 02/20/2027 02/21/2024 Cholesterol Screening (Lipid Panel) 02/01/2029 02/02/2024 DTaP,Tdap,and Td Vaccines (2 - Td or Tdap) 09/25/2034 09/25/2024 HIV Screening Completed 02/02/2024 Pneumococcal Vaccine: 50+ Years Completed 08/08/2025 HIB Vaccines Aged Out No longer eligi [...] this topic Medical Devices Implanted Type Area Sales Promoter Device Identifier Shelf Expiration Date Model / Serial / Lot Mesh 3dmax Lght Lg 4.1x6.2 R 4.1x6.2in - Sn/A - [id number] Implanted:Qty: 1 on 01/18/2025 by Zayra Cuevas MD at [facility] Surgical Mesh Sling Implants Right: Abdomen CR BARD - DAVOL DIV 04/28/2029 [id number] / N/A / [id number] Procedures Procedure Name Priority Date/Time Associated Diagnosis Comments LIPASE STAT Add-on 10/09/2025 6:56 PM EST CBC WITH AUTO DIFFERENTIAL STAT 10/09/2025 6:56 PM EST COMPREHENSIVE METABOLIC PANEL STAT 10/09/2025 6:56 PM EST CBC AND DIFFERENTIAL STAT 10/09/2025 6:56 PM EST from Last 3 Months Results * CBC auto differential (10/09/2025 6:56 PM EST) WBC 7.4 4.8 - 10.8 K/mcL LAB HEMETOLOGY METHOD 10/09/2025 7:45 PM [facility] RBC 5.20 4.50 - 5.50 M/mcL LAB HEMETOLOGY METHOD 10/09/2025 7:45 PM [facility] Hemoglobin 15.5 13.5 - 17.5 g/dL LAB HEMETOLOGY METHOD 10/09/2025 7:45 PM [facility] Hematocrit 47.3 42.0 - 54.0 % LAB HEMETOLOGY METHOD 10/09/2025 7:45 PM [facility] MCV 90.3 79.0 - 98.0 FL LAB HEMETOLOGY METHOD 10/09/2025 7:45 PM [facility] MCH 29.6 27.0 - 32.0 pcg LAB HEMETOLOGY METHOD 10/09/2025 7:45 PM [facility] MCHC 32.8 32.0 - 37.0 g/dL LAB HEMETOLOGY METHOD 10/09/2025 7:45 PM [facility] RDW 12.4 11.0 - 15.0 % LAB HEMETOLOGY METHOD 10/09/2025 7:45 PM [facility] Platelets 246 130 - 400 K/mcL LAB HEMETOLOGY METHOD 10/09/2025 7:45 PM [facility] MPV 10.0 7.0 - 11.0 FL LAB HEMETOLOGY METHOD 10/09/2025 7:45 PM [facility] NRBC 0.0 <1.0 % LAB HEMETOLOGY METHOD 10/09/2025 7:45 PM [facility] NRBC Absolute 0.00 <0.10 K/mcL LAB HEMETOLOGY METHOD 10/09/2025 7:45 PM [facility] Neutrophils Relative 57.2 % LAB HEMETOLOGY METHOD 10/09/2025 7:45 PM [facility] Lymphocytes Relative 32.1 % LAB HEMETOLOGY METHOD 10/09/2025 7:45 PM [facility] Monocytes Relative 8.4 % LAB HEMETOLOGY METHOD 10/09/2025 7:45 PM [facility] Eosinophils Relative 1.5 % LAB HEMETOLOGY METHOD 10/09/2025 7:45 PM [facility] Basophils Relative 0.5 % LAB HEMETOLOGY METHOD 10/09/2025 7:45 PM [facility] Immature Granulocytes Relative 0.3 % LAB HEMETOLOGY METHOD 10/09/2025 7:45 PM [facility] Neutrophils Absolute 4.20 1.50 - 7.00 K/mcL LAB HEMETOLOGY METHOD 10/09/2025 7:45 PM EST [facility] Lymphocytes Absolute 2.36 1.00 - 5.00 K/mcL LAB HEMETOLOGY METHOD 10/09/2025 7:45 PM EST [facility] Monocytes Absolute 0.62 0.20 - 1.00 K/mcL LAB HEMETOLOGY METHOD 10/09/2025 7:45 PM EST [facility] Eosinophils Absolute 0.11 0.00 - 0.50 K/[facility] LAB HEMETOLOGY METHOD 10/09/2025 7:45 PM EST [facility] Basophils Absolute 0.04 0.00 - 0.20 K/[facility] LAB HEMETOLOGY METHOD 10/09/2025 7:45 PM EST [facility] Immature Granulocytes Absolute 0.02 0.00 - 0.03 K/[facility] LAB HEMETOLOGY METHOD 10/09/2025 7:45 PM EST [facility] Blood Venous blood specimen / Unknown Venipuncture / Unknown 10/09/2025 6:56 PM EST 10/09/2025 7:34 PM EST Yovanny García MD LAB BLOOD ORDERABLES Final Resu lt Performing Organization Address City/[facility]/ZIP Co de Phone Number [facility] [address] [place] [address], * Lipase (10/09/2025 6:56 PM EST) Lipase 40 12 - 53 unit/L 10/09/2025 10:29 PM EST [facility] Blood Venous blood specimen / Unknown Venipuncture / Unknown 10/09/2025 6:56 PM EST 10/09/2025 7:34 PM EST Sydnie HERRERA LAB BLOOD ORDERABLES Final Res ult [facility] [address] [place] [address], [place] [phone] * (ABNORMAL) Comprehensive metabolic panel (10/09/2025 6:56 PM EST) Sodium 143 133 - 145 mmol/L 10/09/2025 8:02 PM [facility] Potassium 4.3 3.5 - 5.5 mmol/L 10/09/2025 8:02 PM [facility] Chloride 105 96 - 110 mmol/L 10/09/2025 8:02 PM [facility] CO2 30 21 - 32 mmol/L 10/09/2025 8:02 PM [facility] Anion Gap 8 3 - 11 10/09/2025 8:02 PM [facility] Glucose 103(H) 70 - 100 mg/dL 10/09/2025 8:02 PM [facility] BUN 20 5 - 25 mg/dL 10/09/2025 8:02 PM [facility] Creatinine 1.04 0.70 - 1.30 mg/dL 10/09/2025 8:02 PM [facility] eGFR 86 >=60 mL/min/1. 73m2 10/09/2025 8:02 PM [facility] Comment:Calculation based on the Chronic Kidney Disease Epidemiology Collaboration (CKD-EPI) equation refit without adjustment for race. BUN/Creatinine Ratio 19.2 10/09/2025 8:02 PM [facility] Calcium 9.2 8.5 - 10.5 mg/dL 10/09/2025 8:02 PM [facility] AST (SGOT) 16 10 - 42 unit/L 10/09/2025 8:02 PM [facility] ALT (SGPT) 21 10 - 60 unit/L 10/09/2025 8:02 PM [facility] Alkaline Phosphatase 59 42 - 121 unit/L 10/09/2025 8:02 PM EST [facility] Total Protein 7.4 6.0 - 8.0 g/dL 10/09/2025 8:02 PM EST [facility] Albumin 4.4 3.2 - 5.0 g/dL 10/09/2025 8:02 PM [facility] Total Bilirubin 1.0 0.0 - 1.4 mg/dL 10/09/2025 8:02 PM [facility] Blood Venous blood specimen / Unknown Venipuncture / Unknown 10/09/2025 6:56 PM EST 10/09/2025 7:34 PM EST us Yovanny García MD LAB BLOOD ORDERABLES Final Resu lt [facility] [address] [place] [address], from Last 3 Months Insurance MEDICAID - [place] Care Teams Precast Worker Relationship Specialty Start Date End Date Nai Menendez MD [address] [place] [address] PCP - General Internal Medicine 12/14/24
--- OUTSIDE RECORDS SUMMARY | 2025-10-09 23:05 | XMS_ITS | Encounter Summary ---
Author Organization [employer] Address [address] [place] [address] [place] [address] Care Team Providers Care Banking Officer Name Role Phone Nai Menendez MD Primary Care Provider [phone] Reason for Visit * Reason Onset Date Comments Pt1 10/10/2024 Encounter Details Date Type Department Care Team ([facility] st Contact Info) Description 10/10/[address] [facility] MED & PEDS [address] [place] [address] Nai Menendez MD [address] [place] [address] Pt1 Social History Tobacco Use Types Packs/Day [...] Y/N: Yes Provider name or facility name: [facility] Physical Therapy Facility Address: [address] [place] [address] [place] [address] Escort needed: Y/N: No Do you have a wheelchair: Y/N: No If yes- Manual or electric: n/a Visits: 2-3 times a month for 6 months documented in this encounter Plan of Treatment Upcoming Encounters Date Type Department Care Team ([facility] st Contact Info) Description 11/13/2025 11:30 AM EST Office Visit [facility]S [address] [place] [address] Nai Menendez MD [address] [place] [address] documented as of this encounter Visit Diagnoses Not on filedocumented in this encounter Additional Health Concerns Assessment Noted Time PHQ-9 Depression Total Score: 4 02/02/20 24 9:37 AM EDT documented as of this encounter Care Teams Banking Officer Relationship Specialty Start Date End Date Nai Menendez MD [address] [place] [address] PCP - General Internal Medicine 09/25/24 Phuong Fink ClammerMill Stenciler 12/05/24 documented as of this encounter
--- OUTSIDE RECORDS SUMMARY | 2025-10-09 23:05 | XMS_ITS | Encounter Summary ---
Author Organization [employer] Address [address] [place] [address] 7 [place] [address] Care Team Providers Care Fertilizer Loader Name Role Phone Nai Menendez MD Primary Care Provider [phone] Encounter Details Date Type Department Care Team ([facility] st Contact Info) Description 06/12/2025 Orders Only [facility] MED & PEDS [address] [place], [place] [phone] Nai Menendez MD [address] [place], [place] [phone] Erectile disorder (Primary Dx) Social History Tobacco [...] Team ([facility] st Contact Info) Description 11/13/2025 11:30 AM EST Office Visit [facility] MED & PEDS [address] [place] [address] Nai Menendez MD [address] [place] [address] documented as of this encounter Visit Diagnoses Diagnosis Erectile disorder- Primary documented in this encounter Additional Health Concerns Assessment Noted Time PHQ-9 Depression Total Score: 6 03/23/20 8:22 AM EDT documented as of this encounter Care Teams Fertilizer Loader Relationship Specialty Start Date End Date Nai Menendez MD [address] [place] [address] PCP - General Internal Medicine 09/25/24 Phuong Fink Line Assembly Utility WorkerBell Cleaner 12/05/24 documented as of this encounter
--- OUTSIDE RECORDS SUMMARY | 2025-10-09 23:05 | XMS_ITS | Clinical Summary ---
Author Organization [employer] Address [address] [facility] 7t [place] [address] Care Team Providers Care Clinical Athletic Instructor Name Role Phone Nai Menendez MD Primary Care Provider [phone] Allergies No known active allergies Medications * This document contains information received from the source organization and may not represent a complete record from that organization. omeprazole (PriLOSEC) [address] capsule Take 20 mg by mouth in the morning and 20 mg in the evening. 4 Active oxyCODONE (Roxicodone) 5 MG immediate release tablet Take 5 mg by mouth every 6 (six) hours if needed. 4 Active Senna-Time 8.6 MG tablet TAKE 1 TABLET BY MOUTH TWO TIMES A DAY NEEDED FOR CONSTIPATION 4 Active Blood Pressure kitIndications:P rimary hypertension,Oth er chest pain To check the BP Daily. Keep the log for the next visit. 1 kit 4 Active chlorhexidine (Peridex) 0.12 % solutionIndicati ons:History of tooth extraction, unspecified edentulism class Swish 15 mL morning and night for 1 minute. Spit, do not swallow. Do not eat or drink for 30 minutes following use. 473 mL 4 Active cetirizine (ZyrTEC) 10 MG tabletIndication s:Nasal congestion Take 1 tablet (10 mg) by mouth Once per day. 30 tablet 11 5 026 Active cyclobenzaprine (Flexeril) 10 MG tablet Take [...] Take 20 mg by mouth. 4 Active meloxicam (Mobic) 15 MG tabletIndication s:Subcutaneous nodule of abdominal wall Take 1 tablet (15 mg) by mouth Once per day. 30 tablet 1 5 026 Active Omeprazole 20 MG tablet delayed-releaseI ndications:Gastr oesophageal reflux disease without esophagitis Take 1 tablet (20 mg) by mouth Once per day. 30 tablet 3 5 Active hydrOXYzine pamoate (Vistaril) 50 MG capsuleIndicatio ns:Anxiety,Other insomnia 1 to 2 capsules at bedtime 60 capsule 5 Active SUMAtriptan (Imitrex) 25 MG tabletIndication s:Migraine with aura and without status migrainosus, not intractable TAKE 1 TABLET BY MOUTH ONCE FOR MIGRAINE, MAY REPEAT DOSE ONCE IN 2 HOURS IF NO RELIEF, MAX 2 DOSE IN 24 HOURS 9 tablet 3 5 Active Diclofenac Sodium 1 % gelIndications:R ight inguinal pain APPLY TOPICALLY TO THE AFFECTED AREA THREE TIMES DAILY 100 g 3 5 Active lisinopril 20 MG tabletIndication s:Primary hypertension TAKE 1 TABLET(20 MG) BY MOUTH DAILY 90 tablet 1 5 Active Sod Fluoride-Potassi um Nitrate (Sodium Fluoride 5000 Enamel) 1.1-5 % gelIndications:D ental caries BRUSH TEETH FOR 2 MINUTES, MORNING AND NIGHT. SPIT, DO NOT RINSE. DO NOT EAT OR DRINK ANYTHING FOR 30 MINUTES FOLLOWING BRUSHING 112 g 11 5 Active chlorhexidine (Peridex) 0.12 % solution SWISH AND SPIT WITH 15ML BY MOUTH EVERY MORNING AND EVERY EVENING FOR 1 MINUTE DO NOT EAT OR DRINK FOR UP TO 30 MINUTES AFTER 473 mL 5 Active tadalafil (Cialis) 5 MG tabletIndication s:Erectile disorder Take 1 tablet (5 mg) by mouth Once per day. 90 tablet 1 5 Active busPIRone (Buspar) 5 MG tabletIndication s:Anxiety Take 1 tablet (5 mg) by mouth 2 times daily. 60 tablet 11 5 026 Active lidocaine (Lidoderm) 5 % patch APPLY 1 PATCH TOPICALLY EVERY MORNING AND REMOVE AFTER 12 HOURS 30 patch 3 5 Active tadalafil (Cialis) 10 MG tabletIndication s:Erectile disorder Take 1 tablet (10 mg) by mouth if needed each day for erectile dysfunction. 10 tablet 10/01/2025 9:16 AM EST 5 025 Active Active Problems Problem Noted Date Diagnosed [...] Date Type Department Care Team Description 10/09/2025 Telephone [facility] MEDICINE [address] [facility] [place] [address] Nai Menendez MD Nurse Triage 10/05/2025 Outside Procedure [facility] OPTOMETRY [address] [place], [place] [phone] Deonte, Helena, OD Presbyopia (Primary Dx) 10/01/2025 1:00 PM EST Office Visit [facility] OPTOMETRY [address] [place] [address] DeonteReubenn, OD Hyperopia of both eyes (Primary Dx) 08/21/2025 9:00 AM EDT Office Visit [facility] OPTOMETRY [address] [place] [address] Sydnie Negro, OD Presbyopia (Primary Dx) 08/21/2025 Travel 08/14/2025 Travel 08/10/2025 Results Follow-Up [facility] [address] [place] [address] Staci Hartman RN XR Knee 3 Views Right 08/09/2025 Orders Only [facility] [address] [place] [address] Nai Menendez MD Chronic pain of both knees (Primary Dx); Bilateral primary osteoarthritis of knee 08/08/2025 9:00 AM EDT Office Visit [facility] [address] [place] [address] Nai Menendez MD Primary hypertension (Primary Dx); Erectile disorder; Chronic left-sided low back pain with left-sided sciatica; Chronic pain of both knees; Encounter for immunization 08/08/2025 Travel 08/06/2025 Telephone [facility] [address] [place] [address] Nai Menendez MD Chart Prep 08/03/2025 Refill [facility] [address] [place] [address] Nai Menendez MD 08/01/2025 Travel from Last 3 Months Immunizations Immunization Administration Dates Next Due Pneumococcal Conjugate PCV 20 08/08/2025 Tdap 09/25/2024 Family History Medical History Relation [...] Sign Reading Time Taken Comments Blood Pressure 130/84 08/08/2025 9:03 AM EDT Pulse 72 08/08/2025 9:03 AM EDT Temperature 36.8 C (98.2 F) 06/22/2025 3:05 PM EDT Respiratory Rate 20 08/08/2025 9:03 AM EDT Oxygen Saturation 96% 08/08/2025 9:03 AM EDT Inhaled Oxygen Concentration - - Weight 71.7 kg (158 lb) 08/08/2025 9:03 AM EDT Height 167.6 cm (5' 6 ) 08/08/2025 9:03 AM EDT Body Mass Index 25.5 08/08/2025 9:03 AM EDT Plan of Treatment Upcoming Encounters Date Type Department Care Team ([facility] st Contact Info) Description 11/13/2025 11:30 AM EST Office Visit [facility] [address] [place] [address] Nai Menendez MD [address] [place] [address] Health Maintenance Due Date Last Done Comments CT Colonography 1972 Colonoscopy 1972 FIT 1972 Sigmoidoscopy 1972 Hepatitis A Vaccines (1 of 2 - Risk 2-dose series) 01/23/1991 Hepatitis B Vaccines (1 of 3 - 19+ 3-dose series) 01/23/1991 RSV Patients and Patients Aged 60 years or older (1 - Risk 50-74 years 1-dose series) 01/23/2022 Zoster Vaccines (1 of 2) 01/23/2022 Dental Prophylaxis 10/21/2024 04/20/2024 Dental Oral Exam 02/14/2025 08/15/2024, 03/15/2024 FOBT 02/20/2025 02/21/2024 Dental X-Ray: Bitewings 03/16/2025 03/15/20 24, 02/09/2024 Disability Screening 11/24/2025 11/24/2024 Alcohol/Substance Use Screening 02/12/2026 02/12/2025 Diabetes: Hemoglobin A1C 02/12/2026 025, 09/25/2024 Depression Screening 03/23/2026 03/23/2025, 03/23/2025 SDOH Screening 04/18/2026 04/18/2025 Influenza Vaccine (#1) 2026 Postp oned from 07/02/2025 (Patient Refused) COVID-19 Vaccine (3 - 2024-2 6 season) 2026 04/03/2021, 03/06/2021 Postponed from 07/02/2025 (Patient Refused) Tobacco Screening 08/21/2026 08/21/2025 Colorectal Cancer Screening 02/20/2027 FIT DNA/Cologuard 02/20/2027 02/21/2024 Dental X-Ray: Full Mouth 03/16/2027 03/15/2024 Lipid Panel 02/01/2029 02/02/2024 DTaP/Tdap/Td Vaccines (2 - T d or Tdap) 09/25/2034 09/25/2024 HIV Screening Completed 02/02/2024 Hepatitis C Screening Completed 02/02/2024 Pneumococcal Vaccine: 50+ Years [...] Name Priority Date/Time Associated Diagnosis Comments XR KNEE 3 VIEWS LEFT Routine 08/09/2025 10:50 AM EDT Chronic pain of both knees XR KNEE 3 VIEWS RIGHT Routine 08/09/2025 10:50 AM EDT Chronic pain of both knees POCT GLYCATED HEMOGLOBIN, TOTAL Routine 02/12/2025 9:43 AM EDT Polydipsia PERIODIC ORAL EVALUATION - ESTABLISHED PATIENT Routine 08/15/2024 9:30 AM EDT Periodontal disease Defective dental adventist Symptomatic irreversible pulpitis PROPHYLAXIS - ADULT Routine [...] Relevant to Health Maintenance Results * XR Knee 3 Views Right (08/09/2025 10:50 AM EDT) Anatomical Region Laterality Modality Lower Extremities, Knee Right Radiogra phic Imaging 08/09/2025 10:5 0 AM EDT Narrative 08/09/2025 10:59 AM EDT [place] [address] XRay Report Signed Patient: Osei Fink MR#: [id number] 9 : 1970 Acct:[id number] Age/Sex: 55 / M ADM Date: 08/09/25 Loc: EZIO Attending Dr: Nai Menendez MD Ordering Physician: Nai Menendez MD Date of Service: 08/09/25 Procedure(s): XR knee RT 3V Accession Number(s): [id number] cc: Nai Menendez MD Reason for Exam: knee pain EXAMINATION: XR KNEE, RIGHT CLINICAL INFORMATION: knee pain COMPARISON: None available. TECHNIQUE: Three views of the right knee. FINDINGS: There is no joint effusion. There is mild narrowing of medial joint space. There are tricompartmental marginal osteophytes. There is mild lateral patellar tilt. XR/XR knee RT 3V IMPRESSION: Mild osteoarthritis. Mild lateral patellar tilt. Correlate for signs symptoms of patellar maltracking or excess lateral pressure syndrome. Electronically signed by: Reji Cazares MD 08/09/2025 10:56 AM EDT RP Dictated By: Reji Cazares MD Signed By: <Electronically signed by Reji Cazares MD in OV> 08/09/25 1056 DD/ 1050 TD/TT: 08/09/251054 County Administrator: Procedure Note Donotuseinterpreter, Image - 08/09/[address] [address] XRay Report Signed Patient: Osei Fink#: [id number] 9 : 1970Acct:[id number] Age/Sex: 55 / MADM Date: 08/09/25 Loc: HO.XRAY Attending Dr: Nai Menendez MD Ordering Physician: Nai Menendez MD Date of Service: 08/09/25 Procedure(s): XR knee RT 3V Accession Number(s): [id number] cc: Nai Menendez MD Reason for Exam: knee pain EXAMINATION: XR KNEE, RIGHT CLINICAL INFORMATION: knee pain COMPARISON: None available. TECHNIQUE: Three views of the right knee. FINDINGS: There is no joint effusion. There is mild narrowing of medial joint space. There are tricompartmental marginal osteophytes. There is mild lateral patellar tilt. XR/XR knee RT 3V IMPRESSION: Mild osteoarthritis. Mild lateral patellar tilt. Correlate for signs symptoms of patellar maltracking or excess lateral pressure syndrome. Electronically signed by: Reji Cazares MD 08/09/2025 10:56 AM EDT RP Dictated By: Reji Cazares MD Signed By: <Electronically signed by Reji Cazares MD in OV> 08/09/25 1056 DD/ 1050 TD/TT: 08/09/251054 County Administrator: us Nai Menendez MD IMG XR PROCEDURES Final Res ult * XR Knee 3 Views Left (08/09/2025 10:50 AM EDT) Anatomical Region Laterality Modality Lower Extremities, Knee Left Radiogra phic Imaging 08/09/2025 10:5 0 AM EDT Narrative 08/09/2025 11:00 AM EDT [address] [address] XRay Report Signed Patient: Osei Fink MR#: [id number] 9 : 1970 Acct:[id number] Age/Sex: 55 / M ADM Date: 08/09/25 Loc: EZIO Attending Dr: Nai Menendez MD Ordering Physician: Nai Menendez MD Date of Service: 08/09/25 Procedure(s): XR knee LT 3V Accession Number(s): [id number] cc: Nai Menendez MD Reason for Exam: pain in left knee EXAMINATION: XR KNEE, LEFT CLINICAL INFORMATION: pain in left knee COMPARISON: None available. TECHNIQUE: Three views of the left knee. FINDINGS: There is no joint effusion. There is mild narrowing of medial joint space. There are small tricompartmental marginal osteophytes. XR/XR knee LT 3V IMPRESSION: Mild osteoarthritis Electronically signed by: Reji Cazares MD 08/09/2025 10:57 AM EDT Dictated By: Reji Cazares MD Signed By: <Electronically signed by Reji Cazares MD in OV> 08/09/25 1057 DD/ 1050 TD/TT: 08/09/25 1055 County Administrator: Procedure Note Donotuseinterpreter, Image - 08/09/[address] [address] XRay Report Signed Patient: Osei FinkMR#: [id number] 9 : 1970Acct:[id number] Age/Sex: 55 / MADM Date: 08/09/25 Loc: EZIO Attending Dr: Nai Menendez MD Ordering Physician: Nai Menendez MD Date of Service: 08/09/25 Procedure(s): XR knee LT 3V Accession Number(s): [id number] cc: Nai Menendez MD Reason for Exam: pain in left knee EXAMINATION: XR KNEE, LEFT CLINICAL INFORMATION: pain in left knee COMPARISON: None available. TECHNIQUE: Three views of the left knee. FINDINGS: There is no joint effusion. There is mild narrowing of medial joint space. There are small tricompartmental marginal osteophytes. XR/XR knee LT 3V IMPRESSION: Mild osteoarthritis Electronically signed by: Reji Cazares MD 08/09/2025 10:57 AM EDT RP Dictated By: Reji Cazares MD Signed By: <Electronically signed by Reji Cazares MD in OV> 08/09/25 1057 DD/ 1050 TD/TT: 08/09/25 1055 County Administrator: Nai Menendez MD IMG XR PROCEDURES Final Res ult * POCT HGB A1C (02/12/2025 9:43 AM EDT) Hemoglobin A1C 5.7 4.0 - 6.0 % QC Media Lot # [id number] Lot# Expiration Date , Blood 02/12/2025 9:43 AM EDT Nai Menendez MD POINT OF CARE TEST ENTER/ED IT ORDERABLES Final Result * Cologuard?? colon cancer screening (02/21/2024 7:45 AM EDT) Cologuard Result Negative Negative 03/01/20 3:29 AM EDT [facility] (CLIA #:[id number]) Comment: NEGATIVE TEST RESULT. A negative Cologuard [...] Tomas et al, N Engl J Med 2014;370(14):1835-1038) The normal value (reference range) for this assay is negative. COLOGUARD RE-SCREENING RECOMMENDATION: Periodic colorectal cancer screening is an important part of preventive healthcare for asymptomatic individuals at average risk for colorectal cancer. Following a negative Cologuard result, the [place] [employer] Society and U.S. Multi-Society Task Force screening guidelines recommend a Cologuard re-screening interval of 3 years. References: [place] [employer] Guideline for Colorectal Cancer Screening: https://www.cancer.org/cancer/trtrb-nvljbb-bblgby/ivcamonxd-mplarpmkc-rhxomyo/ac s-rec ommendations.html.; Peña WILL, Ra WILEY, Alisa BakerK, Colorectal Cancer Screening: Recommendations for Physicians and Patients from the U.S. Multi-Society Task Force on Colorectal Cancer Screening , Am J Gastroenterology 2017; 112:0542-4910. TEST DESCRIPTION: Composite algorithmic analysis of stool [...] (Lela Jones al, N Engl J Med 2014;370(14):6336-7019.) Cologuard may produce a false negative or false positive result (no colorectal cancer or precancerous polyp present at colonoscopy follow up). A negative Cologuard test result does not guarantee the absence of CRC or advanced adenoma (pre-cancer). The current Cologuard screening interval is every 3 years. ([place] [employer] Society and U.S. Multi-Society Task Force). Cologuard performance data in a 10,000 patient pivotal study using colonoscopy as the reference method can be accessed at the following location: www.[employer]/results. Additional description of the Cologuard test process, warnings and precautions can be found at www.[employer]. Stool specimen (specimen) 02/21/2024 7:45 AM EDT 02/23/2024 10:44 AM EDT us Analy Chen MD LAB MOLECULAR DIAGNOSTICS ORD ERABLES Final Result [facility] (CLIA #:[id number]) [place] [address], * Hepatitis A,B,C Profile (02/02/2024 10:43 AM EDT) Hepatitis A IgM Nonreactive Nonreactive [facility] Comment:IgM antibodies to QUINTANILLA V not detected; does not exclude earlyacute or recovered HAV infection. ~Hepatitis B Surface Antibody NONREACTIVE Nonreactive [facility] Comment:Nonreactive: < 8.00 mIU/mL Hepatitis B Core Antibody Nonreactive Nonreactive [facility] Hepatitis C Antibody Nonreactive Nonreactive [facility] Comment:Antibodies to HCV no t detected; does not exclude early acuteHCV infection. Hepatitis B Surface Ag Negative Negative [facility] Blood Venous blood specimen / Unknown 02/02/2024 10:43 AM EDT 02/02/2024 2:10 PM EDT us Analy Chen MD LAB BLOOD ORDERABLES Final Re sult Performing Organization Address [facility]/ZIP Co de Phone Number [facility] [address] [place] [address] [phone] * HIV-1/2 Antigen and Antibodies, Fourth Generation, with Reflexes (02/02/2024 10:43 AM EDT) HIV AB/AG Nonreactive Nonreactive [facility] Comment:HIV-1 p24 Ag and/or HIV-1/HIV-2 Ab not detected.A test result that is nonreactive does not exclude thepossibility of exposure to or infection with HIV-1 and/orHIV-2. Nonreactive results in this assay for individualswith prior exposure to HIV-1 and/or HIV-2 may be due toantigen and antibody levels that are below the limit ofdetection of this assay.The [employer] HIV Ag/Ab Combo assay result andsupplemental assay results should be interpreted inconjunction with the patient's clinical presentation,history and other laboratory results. If the results areinconsistent with clinical evidence, additional testing issuggested to confirm the result. Blood Venous blood specimen / Unknown 02/02/2024 10:43 AM EDT 02/02/2024 2:10 PM EDT us Analy Chen MD LAB BLOOD ORDERABLES Final Re sult Performing Organization Address City/[facility]/ZIP Co de Phone Number [facility] [address] [place] [address] [phone] * (ABNORMAL) Lipid Panel, Standard (02/02/2024 10:43 AM EDT) Triglycerides 143 <150 mg/dL [facility] Comment:Desirable Triglyceri de: less than 150 mg/dLBorderline High Triglyceride 150-199 mg/dLHigh Triglyceride: 200-499 mg/dLVery High Triglyceride: greater than or equal to 5OO mg/dL Cholesterol 174 <200 mg/dL [facility] Comment:Desirable Cholestero l: less than 200 mg/dLBorderline High Cholesterol: 200-239 mg/dLHigh Cholesterol: greater than 239 mg/dL LDL Cholesterol Calculated 105(H) <100 mg/dL [facility] Comment:Desirable LDL: less than 100 mg/dLNear Optimal/Above Optimal LDL: 110- 129 mg/dLBorderline High LDL: 130-159 mg/dLHigh LDL: 160-189 mg/dLVery High LDL: greater than or equal to 190 mg/dL HDL Cholesterol 41 >40 mg/dL [facility] Comment:Desirable HDL: great er than 40 mg/dL Note: This HDL assay may give artificially low results in patients with liver disease. Blood Venous blood specimen / Unknown 02/02/2024 10:43 AM EDT 02/02/2024 2:10 PM EDT us Analy Chen MD LAB BLOOD ORDERABLES Final Re sult [facility] [address] [place] [phone] from Last 3 Months or Most Recently Relevant to Health Maintenance Insurance [facility] C3 DENTAL-[facility] MEDICAID STAND ADULT Care Teams Clinical Athletic Instructor Relationship Specialty Start Date End Date Nai Menendez MD [address] [place] [phone] PCP - General Internal Medicine 09/25/24 Phuong Fink Drug Room ClerkProduction Solderer 12/05/24
--- OUTSIDE RECORDS SUMMARY | 2025-10-09 23:06 | XMS_ITS | Encounter Summary ---
Author Organization [employer] Address [address] [facility] 7 [place] [address] Care Team Providers Care Grain Unloader Name Role Phone Nai Menendez MD Primary Care Provider [phone] Reason for Visit * Reason Comments Med Refill Encounter Details Date Type Department Care Team ([facility] Contact Info) Description 05/19/2025 Refill [facility] ADULT D[facility]AL [address] [place], [place] [phone] Willy Kay, DMD [address] [place] [address] Dental caries Social History Tobacco Use Types [...] Description 11/13/2025 11:30 AM EST Office Visit [facility] [address] [place] [address] Nai Menendez MD [address] [place] [address] documented as of this encounter Visit Diagnoses Diagnosis Dental caries Unspecified dental caries documented in this encounter Additional Health Concerns Assessment Noted Time PHQ-9 Depression Total Score: 6 03/23/20 8:22 AM EDT documented as of this encounter Care Teams Grain Unloader Relationship Specialty Start Date End Date Nai Menendez MD [address] [place] [address] PCP - General Internal Medicine 09/25/24 Phuong Fink Public Affairs ManagerStatistical Programmer Analyst 12/05/24 documented as of this encounter
--- OUTSIDE RECORDS SUMMARY | 2025-10-09 23:06 | XMS_ITS | Encounter Summary ---
Author Organization [employer] Address [address] [facility] 7 [place] [address] Care Team Providers Care Log Truck Driver Name Role Phone Nai Menendez MD Primary Care Provider [phone] Encounter Details Date Type Department Care Team (Late st Contact Info) Description 01/02/2025 Orders Only [facility] [address] [place] [address] Provider, MD Darrian Social History Tobacco Use [...] 11/13/2025 11:30 AM EST Office Visit [facility]EDS [address] [place] [address] Nai Menendez MD [address] [place] [address] documented as of this encounter Procedures Procedure [...] documented as of this encounter Care Teams Log Truck Driver Relationship Specialty Start Date End Date Nai Menendez MD [address] [place] [address] PCP - General Internal Medicine 09/25/24 Phuong Fink Clinical Rehabilitation LiaisonPlumbing Installer 12/05/24 documented as of this encounter
--- OUTSIDE RECORDS SUMMARY | 2025-10-09 23:06 | XMS_ITS | Encounter Summary ---
Author Organization [employer] Address [address] [place] [address] Care Team Providers Care Tosser Name Role Phone Nai Menendez MD Primary Care Provider [phone] Reason for Referral * Consultation (Routine) - Closed Specialty Diagnoses / Procedures Referred By Contac t Referred To Contact Optometry Diagnoses Primary hypertension Nai Menendez MD [address] [place] [address] Phone: tel: fax: [facility] OPTOMETRY [address] [place] [address] Phone: tel: fax: Referral ID Status Reason Start Date Expiration Date V isits Requested Visits Authorized [id number] Closed Consult and Treat 05/01/2025 05/01/2026 1 1 Encounter Details Date Type Department Care Team (Late st Contact Info) Description 05/01/2025 Orders Only [facility]S [address] [place], [place] [phone] Nai Menendez MD [address] [place], [place] [phone] Primary hypertension (Primary Dx) Social History Tobacco [...] Description 11/13/2025 11:30 AM EST Office Visit [facility] [address] [place] [address] Nai Menendez MD [address] [place] [address] Scheduled Referrals Name Type Priority Associated Diagnoses Orde r Schedule Referral to [facility] Eye Care Outpatient Referral Routine Primary hypertension [...] AM EDT Narrative 05/25/2025 9:16 AM EDT [facility] [address] [place] [address] XRay Report Signed Patient: Osei Fink MR#: [id number] 9 : 1970 Acct:[id number] Age/Sex: 55 / M ADM Date: 05/25/25 Loc: DORYS Attending Dr: Nikky Okeefe MD Ordering Physician: Nikky Cummins Date of Service: 05/25/25 Procedure(s): XR lumbar spine 2-3V Accession Number(s): [id number] cc: Analy Chen MD; Nikky Cummins EXAMINATION: [...] Jasen Estrada MD in OV> 05/25/25912 DD/ 9 TD/TT: 05/25/25904 Counterintelligence/Humint Specialist: Procedure Note Donotuseinterpreter, Image - 05/25/2025 [facility] [address] [place] [address] Drive [address] [place] [address] XRay Report Signed Patient: Osei Fink#: [id number] 9 : 1970Acct:[id number] Age/Sex: 55 / MADM Date: 05/25/25 Loc: HO.HOSX Attending Dr: Nikky Okeefe MD Ordering Physician: Nikky Cummins Date of Service: 05/25/25 Procedure(s): XR lumbar spine 2-3V Accession Number(s): [id number] cc: Analy Chen MD; Nikky Cummins EXAMINATION: [...] <Electronically signed by Jasen Estrada MDin OV> 05/25/25912 DD/ 9 TD/TT: 05/25/25904 Counterintelligence/Humint Specialist: [facility] External Provider IMG XR PROCEDURES Edited Result - Final * XR Hips Bilateral 3 or 4 Views with or without Pelvis (05/25/2025 7:50 AM EDT) Anatomical Region Laterality Modality Lower Extremities, Hip Bilateral Radiograp hic Imaging 05/25/2025 7:50 AM EDT Narrative 05/25/2025 9:16 AM EDT [facility] [address] [place] [address] Drive [address] [place] [address] XRay Report Signed Patient: Osei Fink MR#: [id number] 9 : 1970 Acct:[id number] Age/Sex: 55 / M ADM Date: 05/25/25 Loc: HO.HOSX Attending Dr: Nikky Okeefe MD Ordering Physician: Nikky Cummins Date of Service: 05/25/25 Procedure(s): XR hips SHANTE min 3V Accession Number(s): [id number] cc: Analy Chen MD; Nikky Cummins EXAMINATION: [...] signed by Chepe Cruz MD in OV> 05/25/25 0913 DD/ 0750 TD/TT: 05/25/25 0905 Counterintelligence/Humint Specialist: Procedure Note Daoter, Image - 05/25/2025 [facility] [address] [place] [address] XRay Report Signed Patient: Osei FinkMR#: [id number] 9 : 1970Acct:[id number] Age/Sex: 55 / MADM Date: 05/25/25 Loc: HO.HOSX Attending Dr: Nikky Okeefe MD Ordering Physician: Nikky Cummins Date of Service: 05/25/25 Procedure(s): XR hips SHANTE min 3V Accession Number(s): [id number] cc: Analy Chen MD; Nikky Cummins EXAMINATION: [...] signed by Chepe Cruz MD in OV> 05/25/25 0913 DD/ 0750 TD/TT: 05/25/25 0905 Counterintelligence/Humint Specialist: [facility] External Provider IMG XR PROCEDURES Edited Result - Final documented in this encounter Visit Diagnoses Diagnosis Primary hypertension- Primary Unspecified essential hypertension documented in this encounter Additional Health Concerns Assessment Noted Time PHQ-9 Depression Total Score: 6 03/23/20 25 8:22 AM EDT documented as of this encounter Care Teams Tosser Relationship Specialty Start Date End Date Nai Menendez MD [address] [place] [address] PCP - General Internal Medicine 09/25/24 Phuong Fink Mechanic AssistantSeedling Sorter 12/05/24 documented as of this encounter
--- OUTSIDE RECORDS SUMMARY | 2025-10-09 23:06 | XMS_ITS | Encounter Summary ---
Author Organization [employer] Address [address] [facility] 7 [place] [address] Care Team Providers Care Supervisor Compounding And Finishing Name Role Phone Analy Chen MD Primary Care Provider [phone] Nai Menendez MD Primary Care Provider [phone] Reason for Visit * Reason Onset Date Comments ER Follow-up 02/11/2024 Encounter Details Date Type Department Care Team (Late st Contact Info) Description 02/11/2024 Telephone [facility] MEDICINE [address] [place] [address] Analy Chen MD [address] [place] [address] ER Follow-up Social History Tobacco Use Types [...] visit on : Date: 02/08 [place] [facility] [place] for: Skin Lump had surgery on 01/26 for hernia and still had pain with a lump Patient advised will forward to team nurse for follow up documented in this encounter Plan of Treatment Upcoming Encounters Date Type Department Care Team (Late st Contact Info) Description 11/13/2025 11:30 AM EST Office Visit [facility] MED & [facility] [address] [facility] [place] [address] Nai Menendez MD [address] [place] [address] documented as of this encounter Visit Diagnoses Not on filedocumented in this encounter Additional Health Concerns Assessment Noted Time PHQ-9 Depression Total Score: 4 02/02/20 24 9:37 AM EDT documented as of this encounter Care Teams Supervisor Compounding And Finishing Relationship Specialty Start Date End Date Analy Chen MD [address] [place] [address] PCP - General Internal Medicine 02/02/24 09/24/24 Nai Menendez MD [address] [place] [address] PCP - General Internal Medicine 09/25/24 Phuong Fink Survey CoordinatorFleece Tier 12/05/24 documented as of this encounter
--- OUTSIDE RECORDS SUMMARY | 2025-10-09 23:06 | XMS_ITS | Encounter Summary ---
Author Organization [employer] Address [address] [facility] [address] [address] Care Team Providers Care Hose Maker Name Role Phone Analy Chen MD Primary Care Provider [phone] Nai Menendez MD Primary Care Provider [phone] Reason for Referral * Consultation (Routine) - Closed Specialty Diagnoses / Procedures Referred By Contac t Referred To Contact Cardiology Diagnoses Primary hypertension Other chest pain Nai Menendez MD [address] [place] [address] Phone: tel: fax: Stephan Batista MD [address] [place] [address] Phone: tel: fax: Referral ID Status Reason Start Date Expiration Date V isits Requested Visits Authorized [id number] Closed Specialty Services Required 04/17/2024 04/17/2025 1 1 Encounter Details Date Type Department Care Team (Late st Contact Info) Description 04/17/2024 Orders Only [facility] MED & PEDS [address] [place], [place] [phone] Nai Menendez MD [address] [place] [address] Primary hypertension (Primary Dx); Other chest pain [...] Description 11/13/2025 11:30 AM EST Office Visit [facility] MED & PEDS [address] [place] [address] Nai Menendez MD [address] [place] [address] Scheduled Referrals Name Type Priority Associated Diagnoses [...] documented as of this encounter Care Teams Hose Maker Relationship Specialty Start Date End Date Analy Chen MD [address] [place] [address] PCP - General Internal Medicine 02/02/24 09/24/24 Nai Menendez MD [address] [place] [address] PCP - General Internal Medicine 09/25/24 Phuong Fink Dispensary ClerkMetal Organ Pipe Maker 12/05/24 documented as of this encounter
--- OUTSIDE RECORDS SUMMARY | 2025-10-09 23:06 | XMS_ITS | Encounter Summary ---
Author Organization [employer] Address [address] [facility] 7 [place] [address] Care Team Providers Care Fire Extinguisher Repairer Inspector Name Role Phone Nai Menendez MD Primary Care Provider [phone] Encounter Details Date Type Department Care Team (Late st Contact Info) Description 12/21/[address] [facility] MEDICINE [address] [place] [address] Nai Menendez MD [address] [place], [place] [phone] Social History Tobacco Use Types Packs/Day Years [...] Description 11/13/2025 11:30 AM EST Office Visit [facility] MED & PEDS [address] [place] [address] Nai Menendez MD [address] [place] [address] documented as of this encounter Visit Diagnoses Not on filedocumented in this encounter Additional Health Concerns Assessment Noted Time PHQ-9 Depression Total Score: 4 02/02/20 9:37 AM EDT documented as of this encounter Care Teams Fire Extinguisher Repairer Inspector Relationship Specialty Start Date End Date Nai Menendez MD [address] [place] [address] PCP - General Internal Medicine 09/25/24 Phuong Fink Dicer OperatorRail Specialist 12/05/24 documented as of this encounter
--- OUTSIDE RECORDS SUMMARY | 2025-10-09 23:06 | XMS_ITS | Encounter Summary ---
Author Organization [employer] Address [address] [place] [address] [place] [address] Care Team Providers Care Piece Cutter Name Role Phone Nai Menendez MD Primary Care Provider [phone] Reason for Visit * Reason Onset Date Comments pre op 12/21/2024 Encounter Details Date Type Department Care Team ([facility] st Contact Info) Description 12/21/2024 Telephone [facility] CHC MED & PEDS [address] [place] [address] Nai Menendez MD [address] [place] [address] pre op Social History Tobacco Use Types [...] Yes EKG: Yes Surgeon's name: Facility name: [facility]. Procedure will be done at [facility] Surgeon's office number: [phone] Surgeon's office fax number: [phone] Contact name (person you spoke with): Kim Last office note from surgeon requested: No Send Message to Sima Ferraro and Josef Muhammad documented in this encounter Plan of Treatment Upcoming Encounters Date Type Department Care Team ([facility] st Contact Info) Description 11/13/2025 11:30 AM EST Office Visit [facility] CHC MED & PEDS [address] [place], [place] [phone] Nai Menendez MD [address] [place] [address] documented as of this encounter Visit Diagnoses Not on filedocumented in this encounter Additional Health Concerns Assessment Noted Time PHQ-9 Depression Total Score: 4 02/02/20 24 9:37 AM EDT documented as of this encounter Care Teams Piece Cutter Relationship Specialty Start Date End Date Nai Menendez MD [address] [place] [address] RAKESH Eduardo [address] PCP - General Internal Medicine 09/25/24 Phuong Fink Guardian Ad LitemWildlife Conservation Professor 12/05/24 documented as of this encounter
--- OUTSIDE RECORDS SUMMARY | 2025-10-09 23:06 | XMS_ITS | Data Portability ---
Author Organization [place] - [facility], Allergy Address [address] [address] Care Team Providers Care Floor Hand Name Role Phone WAGNER NINA Primary Care Provider Assessment Encounter Date Assessment Date Assessment LastModified by Organization Details LastModified Time 06/04/2025 06/04/2025 - Migraine-relat ed vertigo, left-sided ear pressure. The patient will be prescribed magnesium and vitamin B-2 to help manage migraines. He was counseled on avoiding foods that may trigger migraines, including chocolate, cheese, cold cuts, ham, deli meat, Adobo, Saison, Bob steak seasoning, and any items containing MSG. He was educated on the potential benefits of these dietary changes and provided with a list of foods to avoid. An MRI scan of the brain will be ordered to evaluate for any underlying conditions contributing to his symptoms. Follow-up with a PA will be scheduled in approximately two months to assess progress and response to treatment. Communication regarding results will be facilitated via email, and the patient was instructed to create a password for secure messaging. [email or web address] Not available 06/04/2025 16:12:44 08/17/2025 08/17/2025 55 year old male presents [...] y of hiatal hernia seen on prior imagin g. Please evalua te 2024 025 [facility], [address] [facility], [place], [address], 15:18:36 Procedures None record ed. Surgeries None record ed. Imaging MRI, brain + quality intern al audito ry canal, w/wo contra st - next availa ble... .IAC protoc ol 2024 025 [facility] ([facility]), [address] [facility], [place], [address], 12:26:33 MRI, brain + quality intern al audito ry canal, w/wo contra st - next availa ble... .IAC protoc ol 2024 025 [facility] ([facility]), [address], [place], [address], 14:46:50 Medication Orders magnes ium 400 mg (as magnes ium oxide) tablet 2024 025 [id number], [address] [place], [place], [id number], 15:46:22 ribofl ankit (vitam in B2) 400 mg tablet 2024 025 [facility] #[id number], [address] [place], [place], [phone], 15:46:22 Patient TargetsNo targets recorded. Patient Instructions Encounter Date Encounter Id Patient Instructions Last Modified By Organization Details Last Modified Time 06/04/2025 [id number] Avoid foods that may trigger migraines, including chocolate, cheese, cold cuts, ham, deli meat, Adobo, Saison, [place] steak seasoning, and items containing MSG. Take prescribed magnesium and B vitamins as directed. Create a password for secure email communication regarding test results. Follow up with a PA in approximately two months to assess progress. [email or web address] Not available 06/04/2025 15:47:32 Please note: Parts of this encounter note have been generated by AI based on audio conversation. Patient consent was required prior to utilizing this technology. Content review was required prior to finalizing the note. [email or web address] Not available 06/04/2025 15:47:32 Reason for Referral Felt Carbonizer Referral for Gastroesophageal reflux disease without esophagitis Evidence of refractory GERD on laryngoscopy; history of hiatal hernia seen on prior imaging. Please evaluate Referring Physician: Kim Mortensen, Otolaryngology, Encounter Date: 08/17/2025 Results Created Date Observation Date Name Description Value Unit Range Abnormal Flag Note LastModifiedBy Organization Detail LastModifiedTime 06/04/20 25 audio gram No observ ation record ed. BARCODE Not Available 2024 17:19:19 06/12/20 25 06/09/2025 MRI, brain + brain stem, w/wo contr ast [facility] Access ion Number : [id number] Toño leyva Name: Osei Finkkranthi l Record Number : [id number] Date of : 1969 Date of Exam: 2024 Referr helen Mary ted: Elio Gonzalez [facility] N[facility] [address] [place] [address] Exam: MR Brain (C-/C+ ) CPT 86154 Room Descri ption: [facility] 3.0T MR Brain (C-/C+ ) CPT 06133 INDICA TION / CLINIC AL QUESTI ON: Reason For Exam: H93.12 - Tinnit us, left ear, , next availa ble... .IAC protoc ol\E E\[facility] (MRI, BRAIN + CHIP SILO TENDER AL AUDITO RY CANAL, W/WO CONTRA ST) Reason For Exam: H93.12 - Tinnit us, left ear, , next availa ble... .IAC protoc ol\E E\[facility] (MRI, BRAIN + CHIP SILO TENDER AL AUDITO RY CANAL, W/WO CONTRA ST) TECHNI QUE: MRI of the brain with attent ion to the quality intern al audito ry canals was perfor med with and withou t contra st utiliz ing sagitt al T1, axial T2, axial CISS, axial and avila l T1, and post-c ontras t axial and avila l T1-ritesh ghted sequen fermín. 5 mL Elucir em intrav enous contra st was admini stered . COMPAR MJ: None. FINDIN GS: IAC: There is no mass or abnorm al enhanc ement in the quality intern al audito ry canals or cerebe llopon jeri angles . Course and calibe r of the 7th and 8th crania l nerves is normal bilate rally. Fluid signal is preser ortiz in the inner ear struct ures bilate rally. Brains tem demons trates normal signal . BRAIN and EXTRA- AXIAL SPACES : No signif icant abnorm ality of the visual ized portio ns of the brain and extra- axial spaces . EXTRAC RANIAL SOFT TISSUE S: Visual ized portio ns of the extrac ranial soft tissue s are unrema rkable . BONES: Visual ized marrow signal is preser ortiz. IMPRES LORNA: No retroc ochlea r abnorm ality to explai n the patien t?s sympto ms. Electr onical ly Signed By: Jenny GORDILLO [facility] ([facility]) [address], [place], [address], 06/12/2025 16:13:35 Result Notes Documentation Provider Name and Address Organization Details Recorded Time Mri, Brain + Brain Stem, W/wo Contrast : [facility] Accession Number: [id number] Patient Name: Osei Fink Date of : 1970 Date of Exam: 06-09-2025 Referring Physician: Elio Thapa Nose [address] [facility] 100 [place] [address] Exam: MR Brain (C-/C+) CPT 82869 [facility] Brain (C-/C+) CPT 78953 INDICATION / CLINICAL QUESTION: Reason For Exam: H93.12 - Tinnitus, left ear, , next available....IAC protocol\E E\[facility] (MRI, BRAIN + INTERNAL AUDITORY CANAL, W/WO CONTRAST) Reason For Exam: H93.12 - Tinnitus, left ear, , next available....IAC protocol\E E\[facility] (MRI, BRAIN + INTERNAL AUDITORY CANAL, W/WO CONTRAST) TECHNIQUE: MRI of the brain with attention to the internal auditory canals was performed with and without contrast utilizing sagittal T1, axial T2, axial CISS, axial and coronal T1, and post-contrast axial and coronal T1-weighted sequences. 5 mL Elucirem intravenous contrast was administered. COMPARISON: None. FINDINGS: IAC: There is no mass or abnormal enhancement in the internal auditory canals or cerebellopontine angles. Course and caliber of the 7th and 8th cranial nerves is normal bilaterally. Fluid signal is preserved in the inner ear structures bilaterally. Brainstem demonstrates normal signal. BRAIN and EXTRA-AXIAL SPACES: No significant abnormality of the visualized portions of the brain and extra-axial spaces. EXTRACRANIAL SOFT TISSUES: Visualized portions of the extracranial soft tissues are unremarkable. BONES: Visualized marrow signal is preserved. IMPRESSION: No retrocochlear abnormality to explain the patient?s symptoms. Electronically Signed By: Jenny THAPA MD [address] [place] [address], [address], [facility] - [facility] 06/12/2025 15:28:24 Problems Name Problem SNOMED Code Status Onset Date Resolution Date Notes Provider Name and Address Organization Details Recorded Time Bilateral tinnitus 5464040831751 Active 2024 BRENNAN TEAGUE [address] [facility] [address], [place], [address], [place] - [facility] 15:08:00 Abnormal auditory perception 86347966 Active 2024 KIANA TORY, AUD [address] [facility], [place], [address], [place] - [facility] 15:08:25 Dizziness 764376160 Active 2024 ELIO ALEXIS MD [address] [facility], [address], [place], [address], [place] - [facility] 15:43:41 Tinnitus of left ear 6604762163424 Active 2024 ELIO ALEXIS MD [address] [facility], [address], [place], [address], [place] - [facility] 15:43:47 Migraine variants 126007621 Active 2024 ELIO ALEXIS MD [address] [facility], [address], [place], [address], [place] - [facility] 15:45:28 Migraine 75013822 Active 2024 ELIO ALEXIS MD 100 [facility], [address], [place], [address], [place] - [facility] 15:45:34 Frequent headache 838219495 Active 2024 ELIO ALEXIS MD [address] [facility], [address], [place], [address], [place] - [facility] 15:45:34 Allergic rhinitis 51279695 Active 2024 Jordan Bull DO [address] [facility], [place], [address], [place] - [facility] 16:04:21 Throat irritation 600078791 Active 2024 SHARON PEÑA 100 [facility] [address], [place], [address], [facility] - [facility] 13:00:13 Gastroesoph ageal reflux disease without esophagitis 197905915 Active 2024 SHARON PEÑA [address] [facility] [address], [place], [address], [facility] - [facility] 13:00:22 Hiatal hernia 50544164 Active 2024 SHARON PEÑA [address] [facility] [address], [place], [address], [facility] - [facility] 13:00:32 Problem Notes None recorded. Procedures Surgical History Date Name Laterality Status Provider Name and Address Organization Details Recorded Time FOL_DP completed SHARON PEÑA [address], [address], [facility] 08/17/2025 11:12:14 Comp Audio with Tymps - 08063 & 12072 completed BRENNAN TEAGUE [address], [address], [facility] 06/04/2025 15:07:50 arthroscopy of knee completed ELIO THAPA MD [address], [address], [facility] 06/04/2025 15:47:37 repair of inguinal hernia completed ELIO THAPA MD 100 [facility],[address], [address], [facility] - [facility] 06/04/2025 15:48:05 Imaging Results None recorded. Procedure [...] is your level of alcohol consumption? None [email or web address] Information not available 06/04/2025 Mental Status None recorded. Family History Nothing Reported. Medical History Condition Response Arthritis Y Migraines Y Anxiety Y Hypertension Y Past Encounters Encounter ID Performer Location Encounter Start Date Encounter Closed Date Diagnosis/Indication Diagnosis SNOMED-CT Code Diagnosis ICD10 Code Diagnosis IMO Codes Diagnosis Note [id number] ELIO BAIN MD [facility] [address] [address] 06/04/2025 14:21:25 06/04/2025 16:16:30 Abnormal auditory perception 46300320 H93.293 [id number] Audiologic al evaluation results: Normal auditory thresholds with excellent speech discrimina tion,[place]. Tympanomet ry: Right Ear:Type Ad Left Ear:Type A Dizziness 443238152 R42 05801 Tinnitus of left ear 365 7399401 106 H93.12 617021 Migraine variants 826104 005 G43.809 55443031 Suspect underlying migraine headache. Suggest reduction of cheese, chocolate, citrus fruit, cold cuts, nuts, MSG and alcohol. Suggest trial of magnesium oxide 2 to 400 mg daily and riboflavin 400 mg daily. Associatio n of migraine disorders website given, migrainedi [email or web address] [email or web address] g for additional informatio n. She will contact me in a few weeks with an update. [id number] SHARON PEÑA [facility] [address] [address] 08/17/2025 08:50:35 08/17/2025 10:15:15 Tinnitus of left ear 4091933355 106 H93.12 314728 Migraine variants 360285 005 G43.809 73319561 Throat irritation 576538 007 J39.2 15036423 Gastroesop hageal reflux disease without esophagitis 531435038 K21.9 500785 Hiatal hernia 83165407 K 44.9 9218 Health Concerns Section Related Observation LastModified by Organization Detai ls LastModified Time None Recorded Concern Status LastModified by Organization Details LastModified Time None Recorded Advance Directives Directive None Recorded Payers Insurance Date Sequence Insurance Name Policy Number Policy Sandoval Covered Member ID Sandoval Member ID Guarantor Name 06/04/2025 [facility] Osei Fink [id number] Osei Fink 06/04/2025 1 [place] [facility] Osei Fink [id number] Osei Fink 08/14/2025 1 [place] [facility] Osei Fink [id number] Osei Fink Notes Date Note Type Note Provider Name and Address Organization Details Recorded Time 06/04/2025 text/html ROS as noted in the HPI Osei Fink is a 55-year-old male who presents for evaluation of dizziness, ringing in the ears, and migraines. He reports experiencing dizziness that occurs spontaneously and has been ongoing for several months. He describes ringing in both ears, predominantly in the left ear, and associated left-sided facial or ear pressure. He also notes pain along the scalp and has a history of migraines for approximately eight years. He mentions that certain foods, including chocolate, cheese, cold cuts, ham, deli meat, Adobo, and Saison, may exacerbate his migraines. Additionally, he experiences tremors and uncontrollable shaking when the temperature drops to approximately 40 degrees Fahrenheit. He has been taking vitamin B12 but recently ran out. ELIO THAPA MD [address] [place] [address], [address], [facility] 06/04/2025 16:13:25 08/17/2025 text/html ROS as noted in the [...] emergency department visit for acid reflux exacerbation. ELIO THAPA MD [address] [place] [address], [place], [address], [facility] - [facility] 08/17/2025 14:59:35
--- OUTSIDE RECORDS SUMMARY | 2025-10-09 23:06 | XMS_ITS | Encounter Summary ---
Author Organization [employer] Address [address] [facility] 7 [place] [address] Care Team Providers Care Commercial Collections Driver Name Role Phone Nai Menendez MD Primary Care Provider [phone] Encounter Details Date Type Department Care Team (Latest Contact Info) Description 10/05/2025 Outside Procedure [facility] OPTOMETRY [address] [place] [address] Deonte, Hel[place], OD [address] [place] [address] Presbyopia (Primary Dx) Social History Tobacco Use Types [...] as of this encounter Progress Notes * Helena Clemons OD - 10/05/2025 4:42 PM EST MH glasses were dispensed, 2 of 2. documented in this encounter Plan of Treatment Upcoming Encounters Date Type Department Care Team (Late st Contact Info) Description 11/13/2025 11:30 AM EST Office Visit [facility] [address] [place] [address] Nai Menendez MD [address] [place] [address] documented as of this encounter Visit Diagnoses Diagnosis Presbyopia- Primary documented in this encounter Additional Health Concerns Assessment Noted Time PHQ-9 Depression Total Score: 6 03/23/20 8:22 AM EDT documented as of this encounter Care Teams Commercial Collections Driver Relationship Specialty Start Date End Date Nai Menendez MD [address] [place] [address] PCP - General Internal Medicine 09/25/24 Phuong Fink Transit Bus DriverPouch Maker 12/05/24 documented as of this encounter
--- OUTSIDE RECORDS SUMMARY | 2025-10-09 23:06 | XMS_ITS | Encounter Summary ---
Author Organization [employer] Address [address] [facility] 7 [place] [address] Care Team Providers Care Stroboroma Operator Name Role Phone Analy Chen MD Primary Care Provider [phone] Nai Menendez MD Primary Care Provider [phone] Reason for Visit * Reason Onset Date Comments Call Back Request 06/09/2024 Encounter Details Date Type Department Care Team (Late st Contact Info) Description 06/09/2024 Telephone [facility] MEDICINE [address] [place] [address] Analy Chen MD [address] [place] [address] Call Back Request Social History Tobacco Use [...] Description 11/13/2025 11:30 AM EST Office Visit [facility] [address] [place] [address] Nai Menendez MD [address] [place] [address] documented as of this encounter Visit Diagnoses Not on filedocumented in this encounter Additional Health Concerns Assessment Noted Time PHQ-9 Depression Total Score: 4 02/02/20 24 9:37 AM EDT documented as of this encounter Care Teams Stroboroma Operator Relationship Specialty Start Date End Date Analy Chen MD [address] [place] [address] PCP - General Internal Medicine 02/02/24 09/24/24 Nai Menendez MD [address] [place] [address] PCP - General Internal Medicine 09/25/24 Phuong Fink Hedis CoordinatorCollege Intern 12/05/24 documented as of this encounter
--- OUTSIDE RECORDS SUMMARY | 2025-10-09 23:06 | XMS_ITS | Encounter Summary ---
Author Organization [employer] Address [address] [facility] 7 [place] [address] Care Team Providers Care International Sourcing Manager Name Role Phone Nai Menendez MD Primary Care Provider [phone] Reason for Visit * Reason Onset Date Comments Nurse Triage 10/09/2025 Encounter Details Date Type Department Care Team (Late st Contact Info) Description 10/09/2025 Telephone [facility] MEDICINE [address] [place] [address] Nai Menendez MD [address] [place] [address] Nurse Triage Social History Tobacco Use Types [...] encounter Miscellaneous Notes * Telephone Encounter - Margie Goodman RN - 10/09/2025 12:13 PM EST Telephone call to pt who reports right groin pain x 3 days that has worsened in last day. Originally sharp pains on right and left, today just left. - pain present at same site as past 2 surgeries (last surgery 01/18/25), right upper thigh down to right testicle - 10/10 pain when barely touching the area -mild redness, noticeable bump/swelling -nausea present, denies fever, vomiting, chills RN advised pt to go to ED now for severe, sudden pain at former surgical site. Pt states he will call his surgeon first and then go to [facility] ED. RN advised message will be sent to PCP and team nursesto status check. Pt verbalized understanding, in agreement with plan. Protocol Used: Scrotum Pain (Adult) Protocol-Based Disposition: Go to ED Now Positive Triage Question: * SEVERE pain (e.g., excruciating) * All higher-acuity triage questions were negative. Care Advice Discussed: * Reasons To Call Back * Telephone Encounter - Daija Grimm - 10/09/2025 11:21 AM EST Symptom: Pain - Severe Outcome: Talk to a nurse or provider within 15 minutes Reason: Genital pain The caller accepted this outcome. PCP Dr. Menendez documented in this encounter Plan of Treatment Upcoming Encounters Date Type Department Care Team (Late st Contact Info) Description 11/13/2025 11:30 AM EST Office Visit [facility] MED [facility] PEDS [address] [place] [address] Nai Menendez MD [address] [place] [address] documented as of this encounter Visit Diagnoses Not on filedocumented in this encounter Additional Health Concerns Assessment Noted Time PHQ-9 Depression Total Score: 6 03/23/20 25 8:22 AM EDT documented as of this encounter Care Teams International Sourcing Manager Relationship Specialty Start Date End Date Nai Menendez MD [address] [place] [address] PCP - General Internal Medicine 09/25/24 Phuong Fink Hot Saw HelperGardener 12/05/24 documented as of this encounter
--- OUTSIDE RECORDS SUMMARY | 2025-10-09 23:06 | XMS_ITS | Encounter Summary ---
Author Organization [employer] Address [address] [place] [address] [place] [address] Care Team Providers Care Microstrategy Developer Name Role Phone Nai Menendez MD Primary Care Provider [phone] Reason for Referral * Consultation (Routine) - Closed Specialty Diagnoses / Procedures Referred By Contac t Referred To Contact Physical Therapy Diagnoses Chronic pain of both knees Bilateral primary osteoarthritis of knee Nai Menendez MD [address] [place] [address] Phone: tel: fax: Physical Therapy, [address] [facility] ID Phone: tel: fax: Referral ID Status Reason Start Date Expiration Date V isits Requested Visits Authorized [id number] Closed Specialty Services Required 08/09/2025 08/09/2026 1 1 Encounter Details Date Type Department Care Team (Late st Contact Info) Description 08/09/2025 Orders Only [facility] MED [facility] PEDS [address] [place], [place] [phone] Nai Menendez MD [address] [place], [place] [phone] Chronic pain of both knees (Primary Dx); Bilateral primary osteoarthritis of knee Social History Tobacco Use Types Packs/Day Years [...] Description 11/13/2025 11:30 AM EST Office Visit [facility] MED [facility]EDS [address] [place] [address] Nai Menendez MD [address] [place] [address] Scheduled Referrals Name Type Priority Associated Diagnoses Orde r Schedule Referral to Physical Therapy Outpatient Referral Routine Chronic pain of both knees Bilateral primary osteoarthritis of knee Expected: 08/09/2025 (Approximate), Expires: 08/09/2026 documented as of this encounter Visit Diagnoses Diagnosis Chronic pain of both knees- Primary Bilateral primary osteoarthritis of knee documented in this encounter Additional Health Concerns Assessment Noted Time PHQ-9 Depression Total Score: 6 03/23/20 25 8:22 AM EDT documented as of this encounter Care Teams Microstrategy Developer Relationship Specialty Start Date End Date Nai Menendez MD [address] [place] [address] PCP - General Internal Medicine 09/25/24 Phuong Fink Dental AideJava Engineer 12/05/24 documented as of this encounter
--- OUTSIDE RECORDS SUMMARY | 2025-10-09 23:06 | XMS_ITS | Encounter Summary ---
Author Organization [employer] Address 75 [facility] 7 [place] [address] Care Team Providers Care Job Cost Estimator Name Role Phone Nai Menendez MD Primary Care Provider [phone] Reason for Visit * Reason Comments Med Refill Encounter Details Date Type Department Care Team ([facility] Contact Info) Description 04/22/2025 Refill [facility] MED & PEDS [address] [place], [place] [phone] Nai Menendez MD [address] [place] [address] Subcutaneous nodule of abdominal wall Social History [...] Upcoming Encounters Date Type Department Care Team ([facility] st Contact Info) Description 11/13/2025 11:30 AM EST Office Visit [facility] MED [facility] PEDS [address] [place] [address] Nai Menendez MD [address] [place] [address] documented as of this encounter Visit Diagnoses Diagnosis Subcutaneous nodule of abdominal wall documented in this encounter Additional Health Concerns Assessment Noted Time PHQ-9 Depression Total Score: 6 03/23/20 8:22 AM EDT documented as of this encounter Care Teams Job Cost Estimator Relationship Specialty Start Date End Date Nai Menendez MD [address] [place] [address] PCP - General Internal Medicine 09/25/24 Phuong Fink [employer] Counter AssistantClinic Lpn 12/05/24 documented as of this encounter
--- OUTSIDE RECORDS SUMMARY | 2025-10-09 23:06 | XMS_ITS | Encounter Summary ---
Author Organization [employer] Address [address] [facility] 7 [place] [address] Care Team Providers Care Sales Development Specialist Name Role Phone Analy Chen MD Primary Care Provider [phone] Nai Menendez MD Primary Care Provider [phone] Reason for Visit * Reason Onset Date Comments Nurse Triage 02/09/2024 Encounter Details Date Type Department Care Team (Late st Contact Info) Description 02/09/2024 Telephone [facility] [address] [place] [address] Analy Chen MD [address] [place], [place] [phone] Nurse Triage Social History Tobacco Use Types [...] of previous surgery. No apts available in [facility] today or tomorrow. Pt is advised [...] 11/13/2025 11:30 AM EST Office Visit [facility] [address] [place] [address] Nai Menendez MD [address] [place] [address] documented as of this encounter Visit Diagnoses Not on filedocumented in this encounter Additional Health Concerns Assessment Noted Time PHQ-9 Depression Total Score: 4 02/02/20 24 9:37 AM EDT documented as of this encounter Care Teams Sales Development Specialist Relationship Specialty Start Date End Date Analy Chen MD [address] [place] [address] PCP - General Internal Medicine 02/02/24 09/24/24 Nai Menendez MD [address] [place] [address] PCP - General Internal Medicine 09/25/24 Phuong Fink Clay TransporterAssistant Purchasing Manager 12/05/24 documented as of this encounter
--- OUTSIDE RECORDS SUMMARY | 2025-10-09 23:06 | XMS_ITS | Encounter Summary ---
Author Organization [employer] Address [address] [place] [address] 7 [place] [address] Care Team Providers Care Underbaster Name Role Phone Analy Chen MD Primary Care Provider [phone] Nai Menendez MD Primary Care Provider [phone] Encounter Details Date Type Department Care Team ([facility] st Contact Info) Description 06/14/2024 Orders Only [facility] & PEDS [address] [place], [place] [phone] Nai Menendez MD [address] [place], [place] [phone] Tremor (Primary Dx); Low TSH level Social [...] Description 11/13/2025 11:30 AM EST Office Visit [facility] MED & PEDS [address] [place] [address] Nai Menendez MD [address] [place] [address] documented as of this encounter Visit Diagnoses Diagnosis Tremor- Primary Abnormal involuntary movements Low TSH level documented in this encounter Additional Health Concerns Assessment Noted Time PHQ-9 Depression Total Score: 4 02/02/20 24 9:37 AM EDT documented as of this encounter Care Teams Underbaster Relationship Specialty Start Date End Date Analy Chen MD [address] [place] [address] PCP - General Internal Medicine 02/02/24 09/24/24 Nai Menendez MD [address] [place] [address] PCP - General Internal Medicine 09/25/24 Phuong Fink Equity Sales AssistantChannel Supervisor 12/05/24 documented as of this encounter
== END 2025-10-09 18:47 | disposition left against medical advice (07) ==
LOC: HO.ED 17:55
PROVIDERS: Physician Assistant; Emergency Provider Emergency Medicine
DX: R10.9 Unspecified abdominal pain (principal); R60.0 Localized edema; Z53.29 Procedure and treatment not carried out because of patient's decision for other reasons
CPT/HCPCS: 36415; 80053; 83690; 85025; 99281; 99283

== ENCOUNTER 2025-10-11 09:01 | Outpatient (AMB) | payer OTHER, SELFPAY ==
--- NOTE | 2025-10-11 09:16 | MHC.OFFVIS ---
Vital Signs 10/11/25 09:24 Height 5 ft 6 in Weight 147 lb BMI 23.7 Intake Visit Reasons: OV- Lower back pain, WC Intake Note: Osei is a 55 year old male who presents today as a follow up for his back pain status post physical therapy,WC injury on 09/22/22. Patient has finished physical therapy on 09/18/25 for his back. At last visit it was discussed to get the [facility] records but multiple attempts were made, no response. At today's visit he states that physical therapy stopped his visits due to no improvement. He noted that his contracts attorney is also reaching out to retrieve notes and waiting to hear back from [facility] to set up the spine stimulator (last seen there just last month, under the same WC case). Allergies No Known Allergies Allergy (Verified 10/09/25 12:55) HPI Comments Details: WC injury on 09/22/22. Patient seen by [facility] for left hip pain. Per their last note, findings of labral tear was addressed and discussed with patient. However, question component of pain coming from lumbar spine, therefore referred to physiatry for further evaluation. He's had lumbar epidural injections, 2 years ago, at [facility]. It did not help more than a week. He does not remember much. Also had left hip injections? SI joint does not sound familiar. Last PT 2023 but did not have relief. Pain medications including Fentanyl (given due to recent abdominal hernia surgery at [facility]). Lower back pain, different from the left hip/buttock pain. Axial but towards left. Sometimes goes down to left leg. Sometimes numbness on both legs, when he is sitting down but not with walking. He uses cane and limps. Needle sensation on bottom of both feet. PCP says high risk for DM. Records from [facility] reviewed. 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 MRI at that time showed degenerative changes L4-5 and L5-S1. With posterior disc protrusion L5-S1. They recommended trial of left L5 TFESI. After injection, patient reported 30% improvement. I think sometime in the past, patient also had GT bursa injection and intra-articular hip injection. They had then recommended interlaminar epidural approach L5-S1. After which patient reported significant improvement of his pain. But pain on the left side continued. Today he clarifies that none of the injections helped him. [facility] has [facility] just few days ago that they are working to get approval for spine stimulator. MRI done at [facility] 02/09/2023 reported moderate facet arthropathy L4-5 with a mild disc bulge. No central stenosis. Inferior foraminal disc protrusion on the left without nerve root impingement. Posterior disc protrusion at L5-S1 without central stenosis or foraminal narrowing. He is still currently under WC. The pain is the across the back. 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 If he stands, his whole weight is on the back. He did have left knee surgery at [facility] and was told to have torn labrum on left hip but not operated on. Knee pain is not always painful. His pain is more on left lateral hip. I have referred him to PT and finished/discharged 09/25. [facility] Medical History Subclinical hyperthyroidism Palpitation Shortness of breath Chest pain Hernia No known health problems Surgical History Hx of hernia repair H/O knee surgery Family History Maternal Grandmother Heart problem Paternal Grandmother Heart problem Social History Alcohol intake: never Patient Tobacco Use Status: Never used Tobacco Current occupational status: unemployed Physical Exam Vital Signs: BMI result Body Mass Index 23.7 Constitutional: Patient appears to be in no acute distress, well nourished and well developed. Patient was appropriately conversant and oriented. Neurological: Antalgic gait today. Using a cane. Results Reviewed Results Reviewed: Ordering Physician: Nikky Cummins Date of Service: 05/25/25 Procedure(s): XR lumbar spine 2-3V Accession Number(s): [id number] cc: Analy Chen MD; Nikky Cummins~ EXAMINATION: XR LUMBOSACRAL SPINE CLINICAL INFORMATION: M54.9 - Dorsalgia, unspecified COMPARISON: Correlated to CT abdomen and pelvis dated February 09, 2024. TECHNIQUE: AP and lateral views FINDINGS: Levoconvex curvature of the lumbar spine. Mild endplate sclerosis at multiple levels. 10% volume loss of the superior endplate L5 and to a lesser extent L4 likely old. No acute cortical disruption or malalignment. No lytic or blastic lesions. Spina bifida occulta S1, congenital. XR/XR lumbar spine 2-3V IMPRESSION: Mild multilevel spondylosis and mild scoliosis. Electronically signed by: Jasen Wolf MD 05/25/2025 09:13 AM EDT Ordering Physician: Nikky Cummins Date of Service: 05/25/25 Procedure(s): XR hips SHANTE min 3V Accession Number(s): [id number] cc: Analy Chen MD; Nikky Cummins EXAMINATION: XR BILATERAL HIPS WITH AP PELVIS CLINICAL INFORMATION: M25.559 - Pain in unspecified hip COMPARISON: 01/09/2025. TECHNIQUE: AP and frog-leg lateral views of each hip and an AP view of the pelvis. FINDINGS: No fracture, dislocation, or suspicious bone lesion. Hip joint spaces are symmetric with minimal superior narrowing. No significant arthrosis otherwise, and no significant periarticular spurring or sclerosis. Femoral heads are normal in contour without evidence of AVN. Normal acetabular coverage bilaterally. The SI joints have a normal appearance. The sacrum is intact. Soft tissues appear normal. There are herniorrhaphy clips in the right lower abdomen and pelvis. XR/XR hips SHANTE min 3V IMPRESSION: 1. Minimal symmetric superior joint space narrowing bilateral hips. Otherwise normal examination. Electronically signed by: Chepe Cruz MD 05/25/2025 09:13 AM EDT Assessment & Plan Assessment & Plan (1) Chronic lower back pain: Code(s): M54.50 - Low back pain, unspecified; G89.29 - Other chronic pain Category: Medical Qualifiers: Back pain laterality: left Sciatica presence: with sciatica Sciatica laterality: sciatica of left side Qualified Code(s): M54.42 - Lumbago with sciatica, left side; G89.29 - Other chronic pain (2) Left hip pain: Code(s): M25.552 - Pain in left hip Category: Medical Plan Explained that I am the same specialty as [facility] and I didn't realize earlier that he is still under their care under same WC. I recommend he remains under their care. They are in the process of getting spine stimulator approved, which I explained I do not do here anyway. As for left hip pain, we have not been successful in obtaining any past records from [facility]. Any futher question about left hip, I would recommend seeing orthopedics, not physiatry. Assessment and plan discussed with patient, and patient was agreeable. All questions were answered thoroughly. Nikky Okeefe MD, TEETEE Board Certified, [place] Board of Physical Medicine and Rehabilitation (ABPMR) Board Certified, [place] Board of Electrodiagnostic Medicine (ABEM) Coding Level of Care Code Est Pt Level 3 (16101) Diagnoses Chronic left-sided low back pain with left-sided sciatica M54.42; G89.29 Back pain laterality: left Sciatica presence: with sciatica Sciatica laterality: sciatica of left side Left hip pain M25.552
[2025-10-11 09:24] VITALS: BMI 23.7
== END 2025-10-11 09:51 | disposition home or self-care (01) ==
LOC: HO.HOS 09:02
PROVIDERS: PCP Internal Medicine; Visit Provider Physical Medicine & Rehabilitation
DX: M54.42 Lumbago with sciatica, left side (principal); G89.29 Other chronic pain; M25.552 Pain in left hip
CPT/HCPCS: 99213

== ENCOUNTER → 2025-10-11 09:01 | Outpatient (BNVA) | payer OTHER, MEDICAID, SELFPAY | PROVIDERS: PCP Internal Medicine; Visit Provider Physical Medicine & Rehabilitation | DX: G89.29 Other chronic pain (principal); M25.552 Pain in left hip; M54.42 Lumbago with sciatica, left side | CPT/HCPCS: 99212 ==

== ENCOUNTER 2025-10-29 14:58 | Outpatient (REF) | payer OTHER, SELFPAY ==
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
--- OUTSIDE RECORDS SUMMARY | 2025-10-29 17:19 | XMS_ITS | Encounter Summary ---
Author Organization [employer] Address [address] [facility] 7 [place] [address] Care Team Providers Care Child Advocate Name Role Phone Nai Menendez MD Primary Care Provider [phone] Encounter Details Date Type Department Care Team (Late st Contact Info) Description 03/23/2025 Orders Only [facility] [address] [place] [address] Provider, MD Darrian Social History Tobacco Use [...] Care Team (Late st Contact Info) Description 10/31/2025 2:30 PM EST Clinical Support [facility] MED & PEDS [address] [place] [address] 11/13/2025 11:30 AM EST Office Visit [facility] MED & PEDS [address] [place] [address] Nai Menendez MD [address] [place] [address] documented as of this encounter Procedures Procedure [...] documented as of this encounter Care Teams Child Advocate Relationship Specialty Start Date End Date Nai Menendez MD [address] [place] [address] PCP - General Internal Medicine 09/25/24 Phuong Fink Department AssistantTransporter Driver 12/05/24 documented as of this encounter
--- OUTSIDE RECORDS SUMMARY | 2025-10-29 17:19 | XMS_ITS | Encounter Summary ---
Author Organization [employer] Address [address] [facility] 7t [place] [address] Care Team Providers Care Traveling Phlebotomist Name Role Phone Nai Menendez MD Primary Care Provider [phone] Encounter Details Date Type Department Care Team (Late st Contact Info) Description 10/10/[address] [facility] [address] [place], [place] [id number] Provider, MD Darrian Social History Tobacco Use [...] Description 10/31/2025 2:30 PM EST Clinical Support [facility] [address] [place] [address] 11/13/2025 11:30 AM EST Office Visit [facility] [address] [place] [address] Nai Menendez MD [address] [place] [address] documented as of this encounter Procedures Procedure Name Priority Date/Time Associated Diagnosis Comments CT ABDOMEN PELVIS W CONTRAST Routine 10/10/2025 documented in this encounter Results * CT Abdomen Pelvis w/ Contrast (10/10/2025) Anatomical Region Laterality Modality Body, Pelvis, Abdomen Computed T omography us Historical Provider MD FIELDS CT PROCEDURES Final R esult documented in this encounter Visit Diagnoses Not on filedocumented in this encounter Additional Health Concerns Assessment Noted Time PHQ-9 Depression Total Score: 6 03/23/20 25 8:22 AM EDT documented as of this encounter Care Teams Traveling Phlebotomist Relationship Specialty Start Date End Date Nai Menendez MD [address] [place] [address] PCP - General Internal Medicine 09/25/24 Phuong Fink Smoking Tobacco Cutter OperatorMusic Promoter 12/05/24 documented as of this encounter
--- OUTSIDE RECORDS SUMMARY | 2025-10-29 17:19 | XMS_ITS | Continuity of Care Document ---
Author Organization [place] [facility], [facility] Address [address] [place] [address] Care Team Providers Care Eligibility Manager Name Role Phone WAGNER NINA Primary Care [...] camilla hernandez Please evalua te 2024 025 [facility], [address], [place], [address], 15:18:36 Procedures None record ed. Surgeries None record ed. Imaging MRI, brain + internet database specialist al audito ry canal, w/wo contra st - next availa ble... .IAC protoc ol 2024 025 [facility] ([facility] [address], [place], [address], 12:26:33 Medication Orders None record ed. Patient TargetsNo targets recorded. Patient InstructionsNo instructions recorded. Reason for Referral Campaign Fundraiser Referral for Gastroesophageal reflux disease without esophagitis Evidence of refractory GERD on laryngoscopy; history of hiatal hernia seen on prior imaging. Please evaluate Referring Physician: Kim Mortensen, Otolaryngology, Encounter Date: 08/17/2025 Problems Name Problem SNOMED Code Status Onset Date Resolution Date Notes Provider Name and Address Organization Details Recorded Time Bilateral tinnitus 7206168425774 Active 2024 BRENNAN TEAGUE [address] [address], [place], [address], [facility] - [facility] 15:08:00 Abnormal auditory perception 09425967 Active 2024 BRENNAN TEAGUE [address] [address], [place], [address], [facility] - [facility] 15:08:25 Dizziness 206309100 Active 2024 PATRICIA ALEXIS MD [address] [address], [place], [address], [place] - [facility] 5 15:43:41 Tinnitus of left ear 3674234462715 Active 2024 PATRICIA ALEXIS MD [address] [address], [facility] [place], [address], [place] - [facility] 5 15:43:47 Migraine variants 467549564 Active 2024 PATRICIA ALEXIS MD [address] [address], [place], [address], [facility] 15:45:28 Migraine 36482173 Active 2024 PATRICIA ALEXIS MD [address] [address], [place], [address], [facility] - [facility] 15:45:34 Frequent headache 708781188 Active 2024 PATRICIA ALEXIS MD [address] [address], [place], [address], [facility] - [facility] 15:45:34 Allergic rhinitis 72841379 Active 2024 Jordan Bull DO [address] [address], [place], [address], [facility] - [facility] 16:04:21 Throat irritation 021415879 Active 2024 SHARON PEÑA [address] [address], [place], [address], [facility] - [facility] 13:00:13 Gastroesoph ageal reflux disease without esophagitis 174246096 Active 2024 SHARON PEÑA [address] [address], [place], [address], [facility] - [facility] 13:00:22 Hiatal hernia 08668677 Active 2024 SHARON PEÑA [address] [address], [place], [address], [facility] - [facility] 13:00:32 Problem Notes None recorded. Procedures Surgical History Date Name Laterality Status Provider Name and Address Organization Details Recorded Time FOL_DP completed SHARON PEÑA [address] [facility],[address] [address], [place], [address], [facility] - [facility] 08/17/2025 11:12:14 Comp Audio with Tymps - 41144 & 72611 completed BRENNAN TEAGUE [address] [facility] [address], [place], [address], [facility] - [facility] 06/04/2025 15:07:50 arthroscopy of knee completed PATRICIA THAPA MD [address] [facility],[address], [address], [facility] - [facility] 06/04/2025 15:47:37 repair of inguinal hernia completed PATRICIA THAPA MD [address] [facility] [address], [place], [address], [facility] - [facility] 06/04/2025 15:48:05 Imaging Results None recorded. Procedure [...] is your level of alcohol consumption? None [email or web address] Information not available 06/04/2025 Mental Status None recorded. Family History Nothing Reported. Medical History Condition Response Migraines Y Arthritis Y Anxiety Y Hypertension Y Past Encounters Encounter ID Performer Location Encounter Start Date Encounter Closed Date Diagnosis/Indication Diagnosis SNOMED-CT Code Diagnosis ICD10 Code Diagnosis IMO Codes Diagnosis Note [id number] SHARON PEÑA [facility] of [address] [address] 08/17/2025 08:50:35 08/17/2025 10:15:15 Tinnitus of left ear 9109212542 106 H93.12 612714 Migraine variants 524386 005 G43.809 42168523 Throat irritation 301244 007 J39.2 37398687 Gastroesop hageal reflux disease without esophagitis 595719777 K21.9 050107 Hiatal hernia 15191536 K 44.9 9218 Health Concerns Section Related Observation LastModified by Organization Detai ls LastModified Time None Recorded Concern Status LastModified by Organization Details LastModified Time None Recorded Payers Encounter Date Sequence Insurance Name Policy Number Policy Sandoval Covered Member ID Sandoval Member ID Guarantor Name 08/17/2025 1 [place]: [facility] Osei Fink [id number] Osei Fink Notes Date Note Type Note [...] for acid reflux exacerbation. PATRICIA THAPA MD [address] [place] [address], [place], [address], [place] - [facility] 08/17/2025 14:59:35
--- OUTSIDE RECORDS SUMMARY | 2025-10-29 17:19 | XMS_ITS | Clinical Summary ---
Author Organization [facility] Address [address] [place] [address] Phone Care Team Providers Care Solidworks Designer Name Role Phone Nai Menendez MD Primary Care Provider [phone] Allergies No known active allergies Medications amLODIPine [...] Encounters Date Type Department Care Team Description 10/10/2025 1:03 AM EST - 10/10/2025 3:37 AM EST Emergency [facility] [address] [place] [id number] Right lower quadrant abdominal pain (Primary Dx) Discharge Disposition: Home or Self Care from Last 3 Months Surgical History Surgery [...] Sign Reading Time Taken Comments Blood Pressure 154/99 10/10/2025 3:15 AM EST Pulse 66 10/10/2025 3:15 AM EST Temperature 36.6 C (97.9 F) 10/09/2025 10:15 PM EST Respiratory Rate 16 10/10/2025 3:15 AM EST Oxygen Saturation 99% 10/10/2025 3:15 AM EST Inhaled Oxygen Concentration - - [...] this topic Medical Devices Implanted Type Area Cabinet Builder Device Identifier Shelf Expiration Date Model / Serial / Lot Mesh 3dmax Lght Lg 4.1x6.2 R 4.1x6.2in - Sn/A - [id number] Implanted:Qty: 1 on 01/18/2025 by Zayra Cuevas MD at [facility] Surgical Mesh Sling Implants Right: Abdomen CR BARD - DAVOL DIV 04/28/2029 [id number] / N/A / [id number] Procedures Procedure Name Priority Date/Time Associated Diagnosis Comments CT ABDOMEN PELVIS W CONTRAST STAT 10/10/2025 1:36 AM EST TATE URINE CULTURE TUBE STAT 10/10/2025 12:20 AM EST URINALYSIS WITH REFLEX MICROSCOPIC AND CULTURE STAT 10/10/2025 12:20 AM EST URINALYSIS WITH REFLEX MICROSCOPIC AND CULTURE STAT 10/10/2025 12:20 AM EST US SCROTUM AND CONTENTS STAT 10/09/2025 11:36 PM EST LIPASE STAT Add-on 10/09/2025 6:56 PM EST CBC WITH AUTO DIFFERENTIAL STAT 10/09/2025 6:56 PM EST COMPREHENSIVE METABOLIC PANEL STAT 10/09/2025 6:56 PM EST CBC AND DIFFERENTIAL STAT 10/09/2025 6:56 PM EST from Last 3 Months Results * CT Abdomen Pelvis w Contrast (10/10/2025 1:36 AM EST) Anatomical Region Laterality Modality Body Computed Tomogra phy 10/10/2025 2:15 AM EST Impressions 10/10/2025 2:15 AM EST Impression: 1. No acute intra-abdominal process. 2. Prior right inguinal hernia repair. No recurrent hernia. This document has been electronically signed by: Zenobia Nowak MD on 10/10/2025 02:15:08 Narrative 10/10/2025 2:15 AM EST INDICATION: RLQ pain, palpable hernia. Eval for strangulation/incarceration Exam: CT Abdomen and Pelvis with contrast Comparison: None Clinical history: Right lower quadrant pain Findings: Lung bases are clear The liver, spleen and pancreas do not demonstrate any acute process. Small well-defined hypodense lesions in the liver may represent small cysts or hemangiomas. No gallstones or gallbladder wall thickening to suggest acute cholecystitis No choledocholithiasis or biliary obstruction. Normal adrenal glands. Symmetric enhancement of the kidneys bilaterally. Bilateral renal cysts No renal calculi or hydronephrosis. No abdominal aortic aneurysm. No small bowel obstruction Appendix is not identified and may have been previously removed No colitis or diverticulitis. Moderate colonic fecal load Urinary bladder does not demonstrate stones or wall thickening. No free fluid in the pelvis. Prior right inguinal hernia repair. No recurrent hernia. Procedure Note Zenobia Nowak MD - 10/10/2025 INDICATION: RLQ pain, palpable hernia. Eval for strangulation/incarceration Exam: CT Abdomen and Pelvis with contrast Comparison: None Clinical history: Right lower quadrant pain Findings: Lung bases are clear The liver, spleen and pancreas do not demonstrate any acute process. Small well-defined hypodense lesions in the liver may represent small cysts or hemangiomas. No gallstones or gallbladder wall thickening to suggest acutecholecystitis No choledocholithiasis or biliary obstruction. Normal adrenal glands. Symmetric enhancement of the kidneys bilaterally. Bilateral renal cysts No renal calculi or hydronephrosis. No abdominal aortic aneurysm. No small bowel obstruction Appendix is not identified and may have been previously removed No colitis or diverticulitis. Moderate colonic fecal load Urinary bladder does not demonstrate stones or wall thickening. No free fluid in the pelvis. Prior right inguinal hernia repair. No recurrent hernia. IMPRESSION: Impression: 1. No acute intra-abdominal process. 2. Prior right inguinal hernia repair. No recurrent hernia. This document has been electronically signed by: Zenobia Nowak MD on 10/10/2025 02:15:[address] PROCEDURES Final Result * (ABNORMAL) Urinalysis with reflex microscopic and culture (10/10/2025 12:20 AM [facility] [[email or web address] Specific [place] Urine 1.030 1.003 - 1.030 LAB URINALYSIS - AUTOMATED METHOD 10/10/2025 1:15 AM [facility] pH, Urine 6.0 5.0 - 8.0 pH LAB URINALYSIS - AUTOMATED METHOD 10/10/2025 1:15 AM [facility] Leukocytes, Urine Negative Negative LAB URINALYSIS - AUTOMATED METHOD 10/10/2025 1:15 AM [facility] Nitrite, Urine Negative Negative LAB URINALYSIS - AUTOMATED METHOD 10/10/2025 1:15 AM [facility] Protein, Urine Trace <=Trace mg/dL LAB URINALYSIS - AUTOMATED METHOD 10/10/2025 1:15 AM [facility] Glucose, Urine Negative Negative mg/dL LAB URINALYSIS - AUTOMATED METHOD 10/10/2025 1:15 AM [facility] Ketones, Urine Trace(A) Negative mg/dL LAB URINALYSIS - AUTOMATED METHOD 10/10/2025 1:15 AM [facility] Urobilinogen, Urine 1.0 0.2 - 1.0 mg/dL LAB URINALYSIS - AUTOMATED METHOD 10/10/2025 1:15 AM [facility] Bilirubin, Urine Negative Negative LAB URINALYSIS - AUTOMATED METHOD 10/10/2025 1:15 AM [facility] Blood, Urine Negative Negative LAB URINALYSIS - AUTOMATED METHOD 10/10/2025 1:15 AM [facility] Urine Urine specimen obtained by clean catch procedure / Unknown Non-blood Collection / Unknown 10/10/2025 12:20 AM EST 10/10/2025 1:06 AM EST Sydnie Braxton AR LAB URINE ORDERABLES Final Res ult Performing Organization Address City/[facility]/ZIP Co de Phone Number [facility] [address] [place] [address], [place] [phone] * Tate urine culture tube (10/10/2025 12:20 AM EST) Extra Tube Hold for add-ons. 10/10/2025 3:04 AM EST [facility] Comment:Auto resulted. Urine Urine specimen obtained by clean catch procedure / Unknown Non-blood Collection / Unknown 10/10/2025 12:20 AM EST 10/10/2025 1:06 AM EST Sydnie Braxton AR LAB URINE ORDERABLES Final Res ult Performing Organization Address [facility] Co de Phone Number [facility] [address] [place] [address], [place] [phone] * US Scrotum and Contents (10/09/2025 11:36 PM EST) Anatomical Region Laterality Modality Body Ultrasound 10/10/2025 12:2 7 AM EST Impressions 10/10/2025 12:27 AM EST Impression: No significant abnormality. This document has been electronically signed by: Hao Alvarez MD on 10/10/2025 00:27:26 Narrative 10/10/2025 12:27 AM EST INDICATION: Testicular pain/hernia US scrotum with Doppler Comparison: None provided Static images obtained of scrotum and both testes. Color doppler and spectral wave form analysis performed. Findings: Right testicle normal size and echotexture, 4.5 x 2.0 x 3.1 cm. Left testicle normal size and echotexture, 4.6 x 2.0 x 2.6 cm. Normal color flow and spectral tracing bilaterally. Bilateral epididymal cysts noted. No significant epididymal abnormalities. No hydroceles or varicoceles. Procedure Note Hao Alvarez MD - 10/10/2025 INDICATION: Testicular pain/hernia US scrotum with Doppler Comparison: None provided Static images obtained of scrotum and both testes. Color doppler and spectral wave form analysis performed. Findings: Right testicle normal size and echotexture, 4.5 x 2.0 x 3.1 cm. Left testicle normal size and echotexture, 4.6 x 2.0 x 2.6 cm. Normal color flow and spectral tracing bilaterally. Bilateral epididymal cysts noted. No significant epididymal abnormalities. No hydroceles or varicoceles. IMPRESSION: Impression: No significant abnormality. This document has been electronically signed by: Hao Alvarez MD on 10/10/2025 00:27:26 us Sydnie HERRERA IMG US PROCEDURES Final Result * CBC auto differential (10/09/2025 6:56 PM EST) WBC 7.4 4.8 - 10.8 K/mcL LAB HEMETOLOGY METHOD 10/09/2025 7:45 PM [facility] RBC 5.20 4.50 - 5.50 M/mcL LAB HEMETOLOGY METHOD 10/09/2025 7:45 PM [facility] Hemoglobin 15.5 13.5 - 17.5 g/dL LAB HEMETOLOGY METHOD 10/09/2025 7:45 PM [facility] Hematocrit 47.3 42.0 - 54.0 % LAB HEMETOLOGY METHOD 10/09/2025 7:45 PM [facility] MCV 90.3 79.0 - 98.0 FL LAB HEMETOLOGY METHOD 10/09/2025 7:45 PM [facility] MCH 29.6 27.0 - 32.0 pcg LAB HEMETOLOGY METHOD 10/09/2025 7:45 PM [facility] MCHC 32.8 32.0 - 37.0 g/dL LAB HEMETOLOGY METHOD 10/09/2025 7:45 PM [facility] RDW 12.4 11.0 - 15.0 % LAB HEMETOLOGY METHOD 10/09/2025 7:45 PM [facility] Platelets 246 130 - 400 K/mcL LAB HEMETOLOGY METHOD 10/09/2025 7:45 PM [facility] MPV 10.0 7.0 - 11.0 FL LAB HEMETOLOGY METHOD 10/09/2025 7:45 PM [facility] NRBC 0.0 <1.0 % LAB HEMETOLOGY METHOD 10/09/2025 7:45 PM [facility] NRBC Absolute 0.00 <0.10 K/mcL LAB HEMETOLOGY METHOD 10/09/2025 7:45 PM [facility] Neutrophils Relative 57.2 % LAB HEMETOLOGY METHOD 10/09/2025 7:45 PM [facility] Lymphocytes Relative 32.1 % LAB HEMETOLOGY METHOD 10/09/2025 7:45 PM [facility] Monocytes Relative 8.4 % LAB HEMETOLOGY METHOD 10/09/2025 7:45 PM [facility] Eosinophils Relative 1.5 % LAB HEMETOLOGY METHOD 10/09/2025 7:45 PM [facility] Basophils Relative 0.5 % LAB HEMETOLOGY METHOD 10/09/2025 7:45 PM [facility] Immature Granulocytes Relative 0.3 % LAB HEMETOLOGY METHOD 10/09/2025 7:45 PM [facility] Neutrophils Absolute 4.20 1.50 - 7.00 K/mcL LAB HEMETOLOGY METHOD 10/09/2025 7:45 PM [facility] Lymphocytes Absolute 2.36 1.00 - 5.00 K/mcL LAB HEMETOLOGY METHOD 10/09/2025 7:45 PM [facility] Monocytes Absolute 0.62 0.20 - 1.00 K/mcL LAB HEMETOLOGY METHOD 10/09/2025 7:45 PM EST [facility] Eosinophils Absolute 0.11 0.00 - 0.50 K/[facility] LAB HEMETOLOGY METHOD 10/09/2025 7:45 PM EST [facility] Basophils Absolute 0.04 0.00 - 0.20 K/[facility] LAB HEMETOLOGY METHOD 10/09/2025 7:45 PM EST [facility] Immature Granulocytes Absolute 0.02 0.00 - 0.03 K/[facility] LAB HEMETOLOGY METHOD 10/09/2025 7:45 PM EST [facility] Blood Venous blood specimen / Unknown Venipuncture / Unknown 10/09/2025 6:56 PM EST 10/09/2025 7:34 PM EST Yovanny García MD LAB BLOOD ORDERABLES Final Resu lt [facility] [address] [place] [address], [place] [phone] * Lipase (10/09/2025 6:56 PM EST) Pathologist [facility] Lipase 40 12 - 53 unit/L 10/09/2025 10:29 PM EST [facility] Blood Venous blood specimen / Unknown Venipuncture / Unknown 10/09/2025 6:56 PM EST 10/09/2025 7:34 PM EST Sydnie HERRERA LAB BLOOD ORDERABLES Final Res ult [facility] [address] [place] [address], [place] [phone] * (ABNORMAL) Comprehensive metabolic panel (10/09/2025 6:56 PM EST) Sodium 143 133 - 145 mmol/L 10/09/2025 8:02 PM EST [facility] Potassium 4.3 3.5 - 5.5 mmol/L 10/09/2025 8:02 PM [facility] Chloride 105 96 - 110 mmol/L 10/09/2025 8:02 PM [facility] CO2 30 21 - 32 mmol/L 10/09/2025 8:02 PM [facility] Anion Gap 8 3 - 11 10/09/2025 8:02 PM [facility] Glucose 103(H) 70 - 100 mg/dL 10/09/2025 8:02 PM [facility] BUN 20 5 - 25 mg/dL 10/09/2025 8:02 PM [facility] Creatinine 1.04 0.70 - 1.30 mg/dL 10/09/2025 8:02 PM [facility] eGFR 86 >=60 mL/min/1. 73m2 10/09/2025 8:02 PM [facility] Comment:Calculation based on the Chronic Kidney Disease Epidemiology Collaboration (CKD-EPI) equation refit without adjustment for race. BUN/Creatinine Ratio 19.2 10/09/2025 8:02 PM [facility] Calcium 9.2 8.5 - 10.5 mg/dL 10/09/2025 8:02 PM [facility] AST (SGOT) 16 10 - 42 unit/L 10/09/2025 8:02 PM [facility] ALT (SGPT) 21 10 - 60 unit/L 10/09/2025 8:02 PM [facility] Alkaline Phosphatase 59 42 - 121 unit/L 10/09/2025 8:02 PM [facility] Total Protein 7.4 6.0 - 8.0 g/dL 10/09/2025 8:02 PM [facility] Albumin 4.4 3.2 - 5.0 g/dL 10/09/2025 8:02 PM EST [facility] Total Bilirubin 1.0 0.0 - 1.4 mg/dL 10/09/2025 8:02 PM EST [facility] Blood Venous blood specimen / Unknown Venipuncture / Unknown 10/09/2025 6:56 PM EST 10/09/2025 7:34 PM EST us Yovanny García MD LAB BLOOD ORDERABLES Final Resu lt [facility] [address] [place] [address], from Last 3 Months Insurance MEDICAID - [place] Care Teams Solidworks Designer Relationship Specialty Start Date End Date Nai Menendez MD [address] [place] [address] PCP - General Internal Medicine 12/14/24
--- OUTSIDE RECORDS SUMMARY | 2025-10-29 17:19 | XMS_ITS | Encounter Summary ---
Author Organization [employer] Address [address] [facility] [address] [place] [address] Care Team Providers Care Fashion Journalist Name Role Phone Nai Menendez MD Primary Care Provider [phone] Encounter Details Date Type Department Care Team (Latest Contact Info) Description 10/29/2025 Travel Social History Tobacco Use Types Packs/Day [...] Description 10/31/2025 2:30 PM EST Clinical Support [facility] [address] [place] [address] 11/13/2025 11:30 AM EST Office Visit [facility] [address] [place] [address] Nai Menendez MD [address] [place] [address] documented as of this encounter Visit Diagnoses Not on filedocumented in this encounter Additional Health Concerns Assessment Noted Time PHQ-9 Depression Total Score: 6 03/23/20 8:22 AM EDT documented as of this encounter Care Teams Fashion Journalist Relationship Specialty Start Date End Date Nai Menendez MD [address] [place] [address] PCP - General Internal Medicine 09/25/24 Phuong Fink Edm OperatorHealth Consultant 12/05/24 documented as of this encounter
--- OUTSIDE RECORDS SUMMARY | 2025-10-29 17:19 | XMS_ITS | Encounter Summary ---
Author Organization [employer] Address [address] [facility] 7 [place] [address] Care Team Providers Care Solar Project Coordination Specialist Name Role Phone Analy Chen MD Primary Care Provider [phone] Nai Menendez MD Primary Care Provider [phone] Reason for Visit * Reason Onset Date Comments Nurse Triage 09/12/2024 Encounter Details Date Type Department Care Team (Late st Contact Info) Description 09/12/2024 Telephone [facility] [address] [place] [address] Analy Chen MD [address] [place], [place] [id number] Nurse Triage Social History Tobacco Use Types [...] [facility] [address] [place] [address] 11/13/2025 11:30 AM EST Office Visit [facility] [address] [place] [address] Nai Menendez MD [address] [place] [address] documented as of this encounter Visit Diagnoses Not on filedocumented in this encounter Additional Health Concerns Assessment Noted Time PHQ-9 Depression Total Score: 4 02/02/20 24 9:37 AM EDT documented as of this encounter Care Teams Solar Project Coordination Specialist Relationship Specialty Start Date End Date Analy Chen MD [address] [place] [address] PCP - General Internal Medicine 02/02/24 09/24/24 Nai Menendez MD [address] [place] [address] PCP - General Internal Medicine 09/25/24 Phuong Fink Assistant Art DirectorBusiness Performance Advisor 12/05/24 documented as of this encounter
--- OUTSIDE RECORDS SUMMARY | 2025-10-29 17:19 | XMS_ITS | Encounter Summary ---
Author Organization [employer] Address [address] [place] [address] 7 [place] [address] Care Team Providers Care Quality Assurance Consultant Name Role Phone Analy Chen MD Primary Care Provider [phone] Nai Menendez MD Primary Care Provider [phone] Encounter Details Date Type Department Care Team ([facility] st Contact Info) Description 06/14/2024 Orders Only [facility] [address] [place], [place] [phone] Nai Menendez MD [address] [place], [place] [phone] Tremor (Primary Dx); Low TSH level Social [...] [facility] [address] [place] [address] 11/13/2025 11:30 AM EST Office Visit [facility] [address] [place] [address] Nai Menendez MD [address] [place] [address] documented as of this encounter Visit Diagnoses Diagnosis Tremor- Primary Abnormal involuntary movements Low TSH level documented in this encounter Additional Health Concerns Assessment Noted Time PHQ-9 Depression Total Score: 4 02/02/20 9:37 AM EDT documented as of this encounter Care Teams Quality Assurance Consultant Relationship Specialty Start Date End Date Analy Chen MD [address] [place] [address] PCP - General Internal Medicine 02/02/24 09/24/24 Nai Menendez MD [address] [place] [address] PCP - General Internal Medicine 09/25/24 Phuong Fink Mental TelepathistScrap Stripper Hand 12/05/24 documented as of this encounter
--- OUTSIDE RECORDS SUMMARY | 2025-10-29 17:19 | XMS_ITS | Data Portability ---
Author Organization [place] [facility], Allergy Address [address] [address] Care Team Providers Care Vehicle Washer Name Role Phone WAGNER NINA Primary Care [...] imagin g. Please evalua te 2024 025 [facility], [address] [facility], [place], [address], 15:18:36 Procedures None record ed. Surgeries None record ed. Imaging MRI, brain + college intern al audito ry canal, w/wo contra st - next availa ble... .IAC protoc ol 2024 025 [facility] ([facility]), [address] [facility], [place], [address], 12:26:33 MRI, brain + college intern al audito ry canal, w/wo contra st - next availa ble... .IAC protoc ol 2024 025 [facility] ([facility]), [address], [place], [address], 14:46:50 Medication Orders magnes ium 400 mg (as magnes ium oxide) tablet 2024 025 [id number], [address] [place], [place], [phone], 15:46:22 ribofl ankit (vitam in B2) 400 mg tablet 2024 025 [id number], [address] [place], [place], [phone], 15:46:22 Patient TargetsNo targets recorded. Patient Instructions Encounter Date Encounter Id Patient Instructions Last Modified By Organization Details Last Modified Time 06/04/2025 [id number] Avoid foods that may trigger migraines, including chocolate, cheese, cold cuts, ham, deli meat, Adobo, Saison, Supply steak seasoning, and items containing MSG. Take [...] Not available 06/04/2025 15:47:32 Reason for Referral Irrigator Valve Pipe Referral for Gastroesophageal reflux disease without esophagitis [...] stem, w/wo contr ast [facility] Access ion Number : [id number] Toño leyva Name: Osei Finkkranthi l Record Number : [id number] Date of : 1969 Date of Exam: 2024 Referr helen Mary ted: Elio Gonzalez Ear Nose [address] [place] [address] Exam: MR Brain (C-/C+ ) CPT 14613 Room Descri ption: [facility] 3.0T MR Brain (C-/C+ ) CPT 82076 INDICA TION / CLINIC AL QUESTI ON: Reason For Exam: H93.12 - Tinnit us, left ear, , next availa ble... .IAC protoc ol\E E\[facility] (MRI, BRAIN + HVAC RESIDENTIAL SERVICE TECHNICIAN AL AUDITO RY CANAL, W/WO CONTRA ST) Reason For Exam: H93.12 - Tinnit us, left ear, , next availa ble... .IAC protoc ol\E E\[facility] (MRI, BRAIN + HVAC RESIDENTIAL SERVICE TECHNICIAN AL AUDITO RY CANAL, W/WO CONTRA ST) TECHNI QUE: MRI of the brain with attent ion to the college intern al audito ry canals was perfor [...] or abnorm al enhanc ement in the college intern al audito ry canals or cerebe [...] Electr onical ly Signed By: Jenny GORDILLO [facility] ([facility]) [address], [place], [address], 06/12/2025 16:13:35 Result Notes Documentation Provider Name and Address Organization Details Recorded Time Mri, Brain + Brain Stem, W/wo Contrast : [facility] Accession Number: [id number] Patient Name: Osei Fink Date of : 1970 Date of Exam: 06-09-2025 Referring Physician: Elio Thapa Nose [address] [facility] 100 [place] [address] Exam: MR Brain (C-/C+) CPT 42781 [facility] Brain (C-/C+) CPT 15161 INDICATION / CLINICAL QUESTION: Reason For Exam: [...] symptoms. Electronically Signed By: Jenny THAPA MD [address] [place] [address], [phone], [facility] - [facility] 06/12/2025 15:28:24 Problems Name Problem SNOMED Code Status Onset Date Resolution Date Notes Provider Name and Address Organization Details Recorded Time Bilateral tinnitus 6534988820363 Active 2024 BRENNAN TEAGUE 100 [facility] [address], [place], [address], [place] - [facility] 15:08:00 Abnormal auditory perception 86314229 Active 2024 KIANA TORY, AUD 100 [facility],[address], [place], [address], [place] - [facility] 15:08:25 Dizziness 871118015 Active 2024 ELIO ALEXIS MD 100 [facility], [address], [place], [address], [place] - [facility] 15:43:41 Tinnitus of left ear 2436392093691 Active 2024 ELIO ALEXIS MD 100 [facility], [address], [place], [address], [place] [facility] 15:43:47 Migraine variants 327024888 Active 2024 ELIO ALEXIS MD 100 [facility], [address], [place], [address], [place] - [facility] 15:45:28 Migraine 29861564 Active 2024 ELIO ALEXIS MD 100 [facility], [address], [place], [address], [place] - [facility] 15:45:34 Frequent headache 709687120 Active 2024 ELIO ALEXIS MD 100 [facility], [address], [place], [address], [place] - [facility] 15:45:34 Allergic rhinitis 09043435 Active 2024 Jordan Bull DO 100 [facility],[address], [place], [address], [place] - [facility] 16:04:21 Throat irritation 327197032 Active 2024 SHARON PEÑA 100 [facility] [[email or web address]] 100, [place], [address], [facility] - [facility] 13:00:13 Gastroesoph ageal reflux disease without esophagitis 947643194 Active 2024 SHARON PEÑA 100 [facility] [[email or web address]] 100, [place], [address], [facility] - [facility] 13:00:22 Hiatal hernia 81508625 Active 2024 SHARON PEÑA 100 [facility] [[email or web address]] 100, [place], [address], [facility] 13:00:32 Problem Notes None recorded. Procedures Surgical History Date Name Laterality Status Provider Name and Address Organization Details Recorded Time FOL_DP completed SHARON PEÑA [address], [address], [facility] 08/17/2025 11:12:14 Comp Audio with Tymps - 01294 & 88529 completed BRENNAN TEAGUE [address], [address], [facility] 06/04/2025 15:07:50 arthroscopy of knee completed ELIO THAPA MD [address], [address], [facility] 06/04/2025 15:47:37 repair of inguinal hernia completed ELIO THAPA MD 100 [facility],[address], [address], [facility] - [facility] 06/04/2025 15:48:05 Imaging Results None recorded. [...] is your level of alcohol consumption? None [email or web address] Information not available 06/04/2025 Mental Status None recorded. Family History Nothing Reported. Medical History Condition Response Arthritis Y Migraines Y Anxiety Y Hypertension Y Past Encounters Encounter ID Performer Location Encounter Start Date Encounter Closed Date Diagnosis/Indication Diagnosis SNOMED-CT Code Diagnosis ICD10 Code Diagnosis IMO Codes Diagnosis Note [id number] ELIO BAIN MD [facility] [address] [address] 06/04/2025 14:21:25 06/04/2025 16:16:30 Abnormal auditory perception 71676599 H93.293 [id number] Audiologic al evaluation results: Normal auditory thresholds with excellent speech discrimina tion,AU. Tympanomet ry: Right Ear:Type Ad Left Ear:Type A Dizziness [id number] R42 17870 Tinnitus of left ear 773 3753695 106 H93.12 049884 Migraine variants 989518 005 G43.809 04699109 Suspect underlying migraine headache. Suggest reduction of cheese, chocolate, citrus fruit, cold cuts, nuts, MSG and alcohol. Suggest trial of magnesium oxide 2 to 400 mg daily and riboflavin 400 mg daily. Associatio n of migraine disorders website given, [email or web address] g for additional informatio n. She will contact me in a few weeks with an update. [id number] SHARON PEÑA [facility] [address] [address] 08/17/2025 08:50:35 08/17/2025 10:15:15 Tinnitus of left ear 6727708930 106 H93.12 704002 Migraine variants 121385 005 G43.809 07966644 Throat irritation 463059 007 J39.2 67086834 Gastroesop hageal reflux disease without esophagitis 299932929 K21.9 858363 Hiatal hernia 74462859 K 44.9 9218 Health Concerns Section Related Observation LastModified by Organization Detai ls LastModified Time None Recorded Concern Status LastModified by Organization Details LastModified Time None Recorded Advance Directives Directive None Recorded Payers Insurance Date Sequence Insurance Name Policy Number Policy Sandoval Covered Member ID Sandoval Member ID Guarantor Name 06/04/2025 [facility] Osei Fink [id number] Osei Fink 06/04/2025 1 [place] [facility] Osei Fink [id number] Osei Fink 08/14/2025 1 [place] [facility] Osei Fink [id number] Osei Fink Notes Date Note Type Note [...] but recently ran out. ELIO THAPA MD [address] [place] [address], [address], [facility] 06/04/2025 16:13:25 08/17/2025 text/html ROS as [...] for acid reflux exacerbation. ELIO THAPA MD [address] [place] [address], [place], [address], [facility] - [facility] 08/17/2025 14:59:35
--- OUTSIDE RECORDS SUMMARY | 2025-10-29 17:19 | XMS_ITS | Encounter Summary ---
Author Organization [employer] Address [address] [facility] [address], [place] [address] Care Team Providers Care Rivet Tapping Machine Operator Name Role Phone Analy Chen MD Primary Care Provider [phone] Nai Menendez MD Primary Care Provider [phone] Reason for Referral * Consultation (Routine) - Closed Specialty Diagnoses / Procedures Referred By Contac t Referred To Contact Cardiology Diagnoses Primary hypertension Other chest pain Nai Menendez MD [address] [place] [address] Phone: tel: fax: Stephan Batista MD [address] [place] [address] Phone: tel: fax: Referral ID Status Reason Start Date Expiration Date V isits Requested Visits Authorized [id number] Closed Specialty Services Required 04/17/2024 04/17/2025 1 1 Encounter Details Date Type Department Care Team (Late st Contact Info) Description 04/17/2024 Orders Only [facility] [address] [place], [place] [phone] Nai Menendez MD [address] [place] [address] Primary hypertension (Primary Dx); Other chest pain [...] Description 10/31/2025 2:30 PM EST Clinical Support [facility] [address] [place] [address] 11/13/2025 11:30 AM EST Office Visit [facility] [address] [place] [address] Nai Menendez MD [address] [place] [address] Scheduled Referrals Name Type Priority Associated Diagnoses [...] as of this encounter Care Teams Rivet Tapping Machine Operator Relationship Specialty Start Date End Date Analy Chen MD [address] [place] [address] PCP - General Internal Medicine 02/02/24 09/24/24 Nai Menendez MD [address] [place] [address] PCP - General Internal Medicine 09/25/24 Phuong Fink Script ReaderAssembly Line Inspector 12/05/24 documented as of this encounter
--- OUTSIDE RECORDS SUMMARY | 2025-10-29 17:19 | XMS_ITS | Clinical Summary ---
Author Organization [employer] Address 75 [facility] 7[address] [place] [address] Care Team Providers Care Mold Maintenance Technician Name Role Phone Nai Menendez MD Primary Care Provider [phone] Allergies No known active allergies Medications * [...] Take 20 mg by mouth. 024 Active Omeprazole 20 MG tablet delayed-release Indications:Gas [...] 24 HOURS 9 tablet 3 025 Active Sod Fluoride-Potass ium Nitrate (Sodium Fluoride 5000 Enamel) 1.1-5 % gelIndications: Dental caries BRUSH TEETH FOR 2 MINUTES, MORNING AND NIGHT. SPIT, DO NOT RINSE. DO NOT EAT OR DRINK ANYTHING FOR 30 MINUTES FOLLOWING BRUSHING 112 g 025 Active chlorhexidine (Peridex) 0.12 % solution SWISH AND SPIT WITH 15ML BY MOUTH EVERY MORNING AND EVERY EVENING FOR 1 MINUTE DO NOT EAT OR DRINK FOR UP TO 30 MINUTES AFTER 473 mL 025 Active tadalafil (Cialis) 5 MG tabletIndicatio ns:Erectile disorder Take 1 tablet (5 mg) by mouth Once per day. 90 tablet 1 Active busPIRone (Buspar) 5 MG tabletIndicatio ns:Anxiety Take 1 tablet (5 mg) by mouth 2 times daily. 60 tablet 11 025 2025 Active lidocaine (Lidoderm) 5 % patch APPLY 1 PATCH TOPICALLY EVERY MORNING AND REMOVE AFTER 12 HOURS 30 patch 3 Active tadalafil (Cialis) 10 MG tabletIndicatio ns:Erectile disorder Take 1 tablet (10 mg) by mouth if needed each day for erectile dysfunction. 10 tablet 9:16 AM EST Active Diclofenac Sodium 1 % gelIndications: Right inguinal pain APPLY TOPICALLY TO THE AFFECTED AREA THREE TIMES DAILY 100 g 3 Active Blood Pressure kitIndications: Elevated BP without diagnosis of hypertension Check BP daily 1 kit Active lisinopril 20 MG tabletIndicatio ns:Primary hypertension Take 1 tablet (20 mg) by mouth Once per day. 90 tablet 1 Active meloxicam (Mobic) 15 MG tabletIndicatio ns:Subcutaneous nodule of abdominal wall Take 1 tablet (15 mg) by mouth Once per day. 30 tablet 1 025 2025 Active sulfamethoxazol e-trimethoprim (Bactrim DS) 800-160 MG tabletIndicatio ns:Abscess Take 1 tablet by mouth 2 times daily for 7 days. 14 tablet 025 2025 Active meloxicam (Mobic) 15 MG tabletIndicatio ns:Subcutaneous nodule of abdominal wall Take 1 tablet (15 mg) by mouth Once per day. 30 tablet 1 025 2024 Discontinued(R eorder (will not trigger notification to Pharmacy)) Diclofenac Sodium 1 % gelIndications: Right inguinal pain APPLY TOPICALLY TO THE AFFECTED AREA THREE TIMES DAILY 100 g 3 025 2024 Discontinued lisinopril 20 MG tabletIndicatio ns:Primary hypertension TAKE 1 TABLET(20 MG) BY MOUTH DAILY 90 tablet 1 025 2024 Discontinued(R eorder (will not trigger notification to Pharmacy)) doxycycline (Vibra-Tabs) 100 MG tablet Take 1 tablet (100 mg) by mouth 2 times daily for 10 days. 20 tablet 025 2024 mupirocin (Bactroban) 2 % ointment Apply topically 3 times daily for 10 days. 22 g 025 2024 Active Problems Problem Noted Date Diagnosed Date [...] Encounters Date Type Department Care Team Description 10/29/2025 11:00 AM EST Office Visit [facility] [address] [place] [address] Nai Menendez MD Abscess (Primary Dx) 10/29/2025 Travel 10/29/2025 Telephone [facility] [address] [place] [address] Nai Menendez MD Nurse Triage 10/23/2025 Telephone [facility] [address] [place] [address] Nai Menendez MD 10/17/2025 11:15 AM EST Office Visit [facility] [address] [place] [address] Analy Chen MD Elevated BP without diagnosis of hypertension (Primary Dx); Primary hypertension; Subcutaneous nodule of abdominal wall; Severe right groin pain; Adjustment disorder with mixed anxiety and depressed mood 10/17/2025 Refill [facility] [address] [place] [address] Nai Menendez MD Subcutaneous nodule of abdominal wall 10/17/2025 Travel 10/16/2025 Travel 10/11/2025 Refill [facility] [address] [place] [address] Nai Menendez MD Right inguinal pain 10/10/[address] [address] Nai Menendez MD ER Follow-up 10/10/2025 Orders Only [facility] [address] [place] [address] Darrian Freeman MD 10/09/[address] [address] Nai Menendez MD Nurse Triage 10/05/2025 Outside Procedure [facility] [address] [place] [address] DeonteReuben méndezn, OD Presbyopia (Primary Dx) 10/01/2025 1:00 PM EST Office Visit [facility] [address] [place] [address] Helena Clemons, OD Hyperopia of both eyes (Primary Dx) 08/21/2025 9:00 AM EDT Office Visit [facility] [address] [place] [address] Sydnie Negro, OD Presbyopia (Primary Dx) 08/21/2025 Travel 08/14/2025 Travel 08/10/2025 Results Follow-Up [facility] [address] [place] [address] Staci Hartman RN XR Knee 3 Views Right 08/09/2025 Orders Only [facility] [address] [place] [address] Nai Menendez MD Chronic pain of both knees (Primary Dx); Bilateral primary osteoarthritis of knee 08/08/2025 9:00 AM EDT Office Visit [facility] [address] [place] [address] Nai Menendez MD Primary hypertension (Primary Dx); Erectile disorder; Chronic left-sided low back pain with left-sided sciatica; Chronic pain of both knees; Encounter for immunization 08/08/2025 Travel 08/06/2025 Telephone [facility] [address] [place] [address] Nai Menendez MD Chart Prep 08/03/2025 Refill [facility] [address] [place] [address] Nai Menendez MD 08/01/2025 Travel from Last [...] Mass Index 24.05 10/29/2025 11:02 AM EST Plan of Treatment Upcoming Encounters Date Type Department Care Team (Late st Contact Info) Description 10/31/2025 2:30 PM EST Clinical Support [facility] [address] [place] [address] 11/13/2025 11:30 AM EST Office Visit [facility] [address] [place] [address] Nai Menendez MD [address] [place] [address] Health Maintenance Due Date Last Done Comments [...] oned from 07/02/2025 (Patient Refused) COVID-19 Vaccine (2024-12 6 season) 2026 04/03/2021, 03/06/2021 Postponed from 07/02/2025 (Patient Refused) Tobacco Screening 10/29/2026 10/29/2025 Colorectal Cancer Screening 02/20/2027 FIT DNA/Cologuard 02/20/2027 [...] Procedure Name Priority Date/Time Associated Diagnosis Comments MS INCISION & DRAINAGE ABSCESS SIMPLE/SINGLE Routine 10/29/2025 11:[address] ABDOMEN PELVIS W CONTRAST Routine 10/10/2025 XR KNEE 3 VIEWS LEFT Routine 08/09/2025 10:50 AM EDT Chronic pain of both knees XR KNEE 3 VIEWS RIGHT Routine 08/09/2025 10:50 AM EDT Chronic pain of both knees POCT GLYCATED HEMOGLOBIN, TOTAL Routine 02/12/2025 9:43 AM EDT Polydipsia PERIODIC ORAL EVALUATION - ESTABLISHED PATIENT Routine 08/15/2024 9:30 AM EDT Periodontal disease Defective dental episcopal Symptomatic irreversible pulpitis PROPHYLAXIS - ADULT Routine [...] Recently Relevant to Health Maintenance Results * MS INCISION & DRAINAGE ABSCESS SIMPLE/SINGLE (10/29/2025 11:41 AM EST) Nai Alves MD - 10/29/2025 11:41 AM EST Nai Menendez MD 10/29/2025 11:47 AM Incision and Drainage Date/Time: 10/29/2025 11:41 AM Performed by: Nai Menendez MD Authorized by: Nai Menendez MD Consent: Consent obtained: Verbal and written Consent given by: Patient Risks discussed: Incomplete drainage, bleeding and infection Alternatives discussed: Delayed treatment [place] protocol: Procedure explained and questions answered to [...] Packing materials: 11/04 in iodoform gauze Amount 1/4 iodoform: 18 cm Post-procedure details: Procedure completion: Tolerated well, no immediate complications Comments: Xylocaine 1% used. Lot/Exp [id number] Nai Menendez MD IN CLINIC/BEDSIDE ORDERABLE S Final Result * CT Abdomen Pelvis w/ Contrast (10/10/2025) Anatomical Region Laterality Modality Body, Pelvis, Abdomen Computed T omography Historical Provider IMG CT PROCEDURES Final R esult * XR Knee 3 Views Right (08/09/2025 10:50 AM EDT) Anatomical Region Laterality Modality Lower Extremities, Knee Right Radiogra phic Imaging 08/09/2025 10:5 0 AM EDT Narrative 08/09/2025 10:59 AM EDT [address] [address] XRay Report Signed Patient: Osei Fink MR#: [id number] 9 : 1970 Acct:[id number] Age/Sex: 55 / M ADM Date: 08/09/25 Loc: HO.XRAY Attending Dr: Nai Menendez MD Ordering Physician: Nai Menendez MD Date of Service: 08/09/25 Procedure(s): XR knee RT 3V Accession Number(s): [id number] cc: Nai Menendez MD Reason for Exam: [...] Reji Cazares MD 08/09/2025 10:56 AM EDT Dictated By: Reji Cazares MD Signed By: <Electronically signed by Reji Cazares MD in OV> 08/09/25 1056 DD/ 1050 TD/TT: 08/09/25 105 Surgical Instrument Repair Specialist: Procedure Note Donotuseinterpreter, Image - 08/09/2025 [place] [address] XRay Report Signed Patient: Osei Fink#: [id number] 9 : 1970Acct:[id number] Age/Sex: 55 / MADM Date: 08/09/25 Loc: HO.XRAY Attending Dr: Nai Menendez MD Ordering Physician: Nai Menendez MD Date of Service: 08/09/25 Procedure(s): XR knee RT 3V Accession Number(s): [id number] cc: Nai Menendez MD Reason for Exam: [...] Reji Cazares MD 08/09/2025 10:56 AM EDT Dictated By: Reji Cazares MD Signed By: <Electronically signed by Reji Cazares MD in OV> 08/09/25 1056 DD/ 1050 TD/TT: 08/09/25 1055 Surgical Instrument Repair Specialist: us Nai Menendez MD IMG XR PROCEDURES Final Res ult * XR Knee 3 Views Left (08/09/2025 10:50 AM EDT) Anatomical Region Laterality Modality Lower Extremities, Knee Left Radiogra phic Imaging 08/09/2025 10:5 0 AM EDT Narrative 08/09/2025 11:00 AM EDT [place] [address] XRay Report Signed Patient: Osei Fink MR#: [id number] 9 : 1970 Acct:[id number] Age/Sex: 55 / M ADM Date: 08/09/25 Loc: EZIO Attending Dr: Nai Menendez MD Ordering Physician: Nai Menendez MD Date of Service: 08/09/25 Procedure(s): XR knee LT 3V Accession Number(s): [id number] cc: Nai Menendez MD Reason for Exam: [...] signed by Reji Cazares MD in OV> 08/09/251056 DD/ 105 TD/TT: 08/09/251054 Surgical Instrument Repair Specialist: Procedure Note Donotuseinterpreter, Image - 08/09/[address] [address] XRay Report Signed Patient: Osei Fink#: [id number] 9 : 1970Acct:[id number] Age/Sex: 55 / MADM Date: 08/09/25 Loc: HO.XRAY Attending Dr: Nai Menendez MD Ordering Physician: Nai Menendez MD Date of Service: 08/09/25 Procedure(s): XR knee LT 3V Accession Number(s): [id number] cc: Nai Menendez MD Reason for Exam: [...] by Reji Cazares MD in OV> 08/09/25 105 DD/ 49 TD/TT: 08/09/251054 Surgical Instrument Repair Specialist: us Nai Menendez MD IMG XR PROCEDURES Final Res ult * POCT HGB A1C (02/12/2025 9:43 AM EDT) Hemoglobin A1C 5.7 4.0 - 6.0 % QC Media Lot # [id number] Lot# Expiration Date [id number] Blood 02/12/2025 9:43 AM EDT us Nai Menendez MD POINT OF CARE TEST ENTER/ED IT ORDERABLES Final Result * Cologuard?? colon cancer screening (02/21/2024 7:45 AM EDT) Cologuard Result Negative Negative 03/01/20 3:29 AM EDT [facility] (CLIA #:[id number]) Comment: NEGATIVE TEST RESULT. A negative Cologuard [...] Tomas et al, N Engl J Med 2014;370(14):0222-5759) The normal value (reference range) for this assay is negative. COLOGUARD RE-SCREENING RECOMMENDATION: Periodic colorectal cancer screening is an important part of preventive healthcare for asymptomatic individuals at average risk for colorectal cancer. Following a negative Cologuard result, the [place] [employer] Society and U.S. Multi-Society Task Force screening guidelines recommend a Cologuard re-screening interval of 3 years. References: [place] [employer] Guideline for Colorectal Cancer Screening: https://www.cancer.org/cancer/qwhpx-uqfwxn-xmsijs/vsspsscgd-qvjcadukw-herodgu/ac s-rec ommendations.html.; Peña WILL, Ra WILEY, Alisa SUMMERS, Colorectal Cancer Screening: Recommendations for Physicians and Patients from the U.S. Multi-Society Task Force on Colorectal Cancer Screening , Am J Gastroenterology 2017; 112:2550-9901. TEST DESCRIPTION: Composite algorithmic analysis of stool [...] (Lela Jones al, N Engl J Med 2014;370(14):9858-2931.) Cologuard may produce a false negative or false positive result (no colorectal cancer or precancerous polyp present at colonoscopy follow up). A negative Cologuard test result does not guarantee the absence of CRC or advanced adenoma (pre-cancer). The current Cologuard screening interval is every 3 years. ([place] [employer] Society and U.S. Multi-Society Task Force). Cologuard performance data in a 10,000 patient pivotal study using colonoscopy as the reference method can be accessed at the following location: www.[facility]/results. Additional description of the Cologuard test process, warnings and precautions can be found at www.Presentainrd.com. Stool specimen (specimen) 02/21/2024 7:45 AM EDT 02/23/2024 10:44 AM EDT us Analy Chen MD LAB MOLECULAR DIAGNOSTICS ORD ERABLES Final Result [facility] (CLIA #:[id number]) [place] [address], * Hepatitis A,B,C Profile (02/02/2024 10:43 AM EDT) Hepatitis A IgM Nonreactive Nonreactive [facility] Comment:IgM antibodies to QUINTANILLA V not detected; does not exclude earlyacute or recovered HAV infection. ~Hepatitis B Surface Antibody NONREACTIVE Nonreactive [facility] Comment:Nonreactive: < 8.00 mIU/mL Hepatitis B Core Antibody Nonreactive Nonreactive [facility] Hepatitis C Antibody Nonreactive Nonreactive [facility] Comment:Antibodies to HCV no t detected; does not exclude early acuteHCV infection. Hepatitis B Surface Ag Negative Negative [facility] Blood Venous blood specimen / Unknown 02/02/2024 10:43 AM EDT 02/02/2024 2:10 PM EDT us Analy Chen MD LAB BLOOD ORDERABLES Final Re sult [facility] [address] [place] [address] [phone] * HIV-1/2 Antigen and Antibodies, Fourth Generation, with Reflexes (02/02/2024 10:43 AM EDT) Pathologist [facility] HIV AB/AG Nonreactive Nonreactive [facility] Comment:HIV-1 p24 Ag and/or HIV-1/HIV-2 Ab not detected.A test result that is nonreactive does not exclude thepossibility of exposure to or infection with HIV-1 and/orHIV-2. Nonreactive results in this assay for individualswith prior exposure to HIV-1 and/or HIV-2 may be due toantigen and antibody levels that are below the limit ofdetection of this assay.The [employer] HIV Ag/Ab Combo assay result andsupplemental assay results should be interpreted inconjunction with the patient's clinical presentation,history and other laboratory results. If the results areinconsistent with clinical evidence, additional testing issuggested to confirm the result. Blood Venous blood specimen / Unknown 02/02/2024 10:43 AM EDT 02/02/2024 2:10 PM EDT Analy Chen MD LAB BLOOD ORDERABLES Final Re sult Performing Organization Address [facility] [[email or web address]] Co de Phone Number [facility] [address] [place] [address] [phone] * (ABNORMAL) Lipid Panel, Standard (02/02/2024 10:43 AM EDT) Triglycerides 143 <150 mg/dL [facility] Comment:Desirable Triglyceri de: less than 150 mg/dLBorderline High Triglyceride 150-199 mg/dLHigh Triglyceride: 200-499 mg/dLVery High Triglyceride: greater than or equal to 5OO mg/dL Cholesterol 174 <200 mg/dL [facility] Comment:Desirable Cholestero l: less than 200 mg/dLBorderline High Cholesterol: 200-239 mg/dLHigh Cholesterol: greater than 239 mg/dL LDL Cholesterol Calculated 105(H) <100 mg/dL [facility] Comment:Desirable LDL: less than 100 mg/dLNear Optimal/Above Optimal LDL: 110- 129 mg/dLBorderline High LDL: 130-159 mg/dLHigh LDL: 160-189 mg/dLVery High LDL: greater than or equal to 190 mg/dL HDL Cholesterol 41 >40 mg/dL [facility] Comment:Desirable HDL: great er than 40 mg/dL Note: This HDL assay may give artificially low results in patients with liver disease. Blood Venous blood specimen / Unknown 02/02/2024 10:43 AM EDT 02/02/2024 2:10 PM EDT Analy Chen MD LAB BLOOD ORDERABLES Final Re sult Performing Organization Address [facility]/ZIP Co de Phone Number [facility] [address] [place] [address] [phone] from Last 3 Months or Most Recently Relevant to Health Maintenance Insurance [facility] C3 DENTAL-[facility] MEDICAID STAND ADULT Care Teams Mold Maintenance Technician Relationship Specialty Start Date End Date Nai Menendez MD [address] [place] [address] PCP - General Internal Medicine 09/25/24 Phuong Fink Counter Supply WorkerForming Yardage Control Operator 12/05/24
--- OUTSIDE RECORDS SUMMARY | 2025-10-29 17:19 | XMS_ITS | Encounter Summary ---
Author Organization [employer] Address 75 [facility] 7 [place] [address] Care Team Providers Care Catalyst Plant Supervisor Name Role Phone Nai Menendez MD Primary Care Provider [phone] Reason for Visit * Reason Onset Date Comments Medication Question 12/01/2024 Encounter Details Date Type Department Care Team ([facility] st Contact Info) Description 12/01/2024 Telephone [facility] [address] [place] [address] Nai Menendez MD [address] [place], [place] [phone] Medication Question Social History Tobacco Use Types [...] has questions regarding medication prescribed on 11/30/24. [place] explained cetirizine 10mg for allergies/post nasal drip, [...] Description 10/31/2025 2:30 PM EST Clinical Support [facility] [address] [place] [address] 11/13/2025 11:30 AM EST Office Visit [facility] [address] [place] [address] Nai Menendez MD [address] [place] [address] documented as of this encounter Visit Diagnoses Not on filedocumented in this encounter Additional Health Concerns Assessment Noted Time PHQ-9 Depression Total Score: 4 02/02/20 24 9:37 AM EDT documented as of this encounter Care Teams Catalyst Plant Supervisor Relationship Specialty Start Date End Date Nia Menendez MD [address] [place] [address] PCP - General Internal Medicine 09/25/24 Phuong Fink Fountain WorkerSenior Biostatistician 12/05/24 documented as of this encounter
--- OUTSIDE RECORDS SUMMARY | 2025-10-29 17:19 | XMS_ITS | Encounter Summary ---
Author Organization [employer] Address 75 [facility] 7 [place] [address] Care Team Providers Care Supply Clerk Name Role Phone Nai Menendez MD Primary Care Provider [phone] Reason for Visit * Reason Comments Med Refill Encounter Details Date Type Department Care Team ([facility] Contact Info) Description 05/19/2025 Refill [facility]ULT D[facility]AL [address] [place], [place] [phone] Willy Kay, DMD [address] [place] [address] Dental caries Social History Tobacco Use Types [...] [facility] [address] [place] [address] 11/13/2025 11:30 AM EST Office Visit [facility] [address] [place] [address] Nai Menendez MD [address] [place] [address] documented as of this encounter Visit Diagnoses Diagnosis Dental caries Unspecified dental caries documented in this encounter Additional Health Concerns Assessment Noted Time PHQ-9 Depression Total Score: 6 03/23/20 8:22 AM EDT documented as of this encounter Care Teams Supply Clerk Relationship Specialty Start Date End Date Nai Menendez MD [address] [place] [address] PCP - General Internal Medicine 09/25/24 Phuong Fink Supervisor Industrial Arts EducationShank Sander 12/05/24 documented as of this encounter
--- OUTSIDE RECORDS SUMMARY | 2025-10-29 17:19 | XMS_ITS | Encounter Summary ---
Author Organization [employer] Address [address] [place] [address] [place] [address] Care Team Providers Care Seaman Name Role Phone Nai Menendez MD Primary Care Provider [phone] Reason for Visit * Reason Onset Date Comments Nurse Triage 10/29/2025 Encounter Details Date Type Department Care Team ([facility] st Contact Info) Description 10/29/2025 Telephone [facility] [address] [place] [address] Nai Menendez MD [address] [place] [address] Nurse Triage Social History Tobacco Use Types [...] Telephone Encounter - Pamela Redmond RN - 10/29/2025 9:56 AM EST Appointment schedule for sameday today at 11:00 * Telephone Encounter - Gato Newell - 10/29/2025 9:40 AM EST Symptom: Skin Lump Outcome: Schedule an urgent appointment (within 4 hours) or talk to a nurse or provider soon Reason: Red and larger than 1 inch The caller accepted this outcome. Contact pt at [phone] documented in this encounter Plan of Treatment Upcoming Encounters Date Type Department Care Team ([facility] st Contact Info) Description 10/31/2025 2:30 PM EST Clinical Support [facility] [address] [place] [address] 11/13/2025 11:30 AM EST Office Visit [facility] [address] [place] [address] Nai Menendez MD [address] [place] [address] documented as of this encounter Visit Diagnoses Not on filedocumented in this encounter Additional Health Concerns Assessment Noted Time PHQ-9 Depression Total Score: 6 03/23/20 25 8:22 AM EDT documented as of this encounter Care Teams Seaman Relationship Specialty Start Date End Date Nai Menendez MD [address] [place] [address] PCP - General Internal Medicine 09/25/24 Phuong Fink Hollow Handle Knife AssemblerMedical Biller/Coder 12/05/24 documented as of this encounter
--- OUTSIDE RECORDS SUMMARY | 2025-10-29 17:19 | XMS_ITS | Encounter Summary ---
Author Organization [employer] Address [address] [place] [address] [place] [address] Care Team Providers Care Grocery Cashier Name Role Phone Nai Menendez MD Primary Care Provider [phone] Reason for Visit * Reason Onset Date Comments pre op 12/21/2024 Encounter Details Date Type Department Care Team ([facility] st Contact Info) Description 12/21/2024 Telephone [facility] [address] [place] [address] Nai Menendez MD [address] [place] [address] pre op Social History Tobacco Use Types [...] Yes EKG: Yes Surgeon's name: Facility name: [facility]. Procedure will be done at [facility] Surgeon's office number: [phone] Surgeon's office fax number: [phone] Contact name (person you spoke with): i[employer] Last office note from surgeon requested: No Send Message to Sima Ferraro and Josef Muhammad documented in this encounter Plan of Treatment Upcoming Encounters Date Type Department Care Team ([facility] st Contact Info) Description 10/31/2025 2:30 PM EST Clinical Support [facility] [address] [place] [address] 11/13/2025 11:30 AM EST Office Visit [facility] [address] [place] [address] Nai Menendez MD [address] [place] [address] documented as of this encounter Visit Diagnoses Not on filedocumented in this encounter Additional Health Concerns Assessment Noted Time PHQ-9 Depression Total Score: 4 02/02/20 24 9:37 AM EDT documented as of this encounter Care Teams Grocery Cashier Relationship Specialty Start Date End Date Nai Menendez MD [address] [place] [address] PCP - General Internal Medicine 09/25/24 Phuong Fink Supervisor Kosher Dietary ServiceService Superintendent 12/05/24 documented as of this encounter
--- OUTSIDE RECORDS SUMMARY | 2025-10-29 17:19 | XMS_ITS | Encounter Summary ---
Author Organization [employer] Address [address] [facility] 7 [place] [address] Care Team Providers Care Negative Restorer Name Role Phone Nai Menendez MD Primary Care Provider [phone] Encounter Details Date Type Department Care Team (Late st Contact Info) Description 01/02/2025 Orders Only [facility] [address] [place] [address] Provider, MD Darrian Social History Tobacco Use [...] 2:30 PM EST Clinical Support [facility] MED & PEDS [address] [place] [address] 11/13/2025 11:30 AM EST Office Visit [facility] [address] [place] [address] Nai Menendez MD 505 [place] [address] documented as of this encounter Procedures Procedure [...] documented as of this encounter Care Teams Negative Restorer Relationship Specialty Start Date End Date Nai Menendez MD 505 [place] [address] PCP - General Internal Medicine 09/25/24 Phuong Fink Motel Front Desk AttendantFisher Lobster 12/05/24 documented as of this encounter
--- OUTSIDE RECORDS SUMMARY | 2025-10-29 17:19 | XMS_ITS | Encounter Summary ---
Author Organization [employer] Address [address] [place] [address] 7 [place] [address] Care Team Providers Care Director Employee Safety And Health Name Role Phone Nai Menendez MD Primary Care Provider [phone] Encounter Details Date Type Department Care Team ([facility] st Contact Info) Description 06/12/2025 Orders Only [facility] MED & PEDS [address] [place], [place] [phone] Nai Menendez MD [address] [place], [place] [phone] Erectile disorder (Primary Dx) Social History Tobacco [...] Description 10/31/2025 2:30 PM EST Clinical Support [facility] MED & PEDS [address] [place] [address] 11/13/2025 11:30 AM EST Office Visit [facility] & [facility]EDS [address] [place] [address] Nai Menendez MD [address] [place] [address] documented as of this encounter Visit Diagnoses Diagnosis Erectile disorder- Primary documented in this encounter Additional Health Concerns Assessment Noted Time PHQ-9 Depression Total Score: 6 03/23/20 8:22 AM EDT documented as of this encounter Care Teams Director Employee Safety And Health Relationship Specialty Start Date End Date Nai Menendez MD [address] [place] [address] PCP - General Internal Medicine 09/25/24 Phuong Fink Weasand TrimmerSucker Machine Operator 12/05/24 documented as of this encounter
--- OUTSIDE RECORDS SUMMARY | 2025-10-29 17:19 | XMS_ITS | Encounter Summary ---
Author Organization [employer] Address [address] [place] [address] [place] [address] Care Team Providers Care Park Aide Name Role Phone Nai Menendez MD Primary Care Provider [phone] Reason for Visit * Reason Onset Date Comments Pt1 10/10/2024 Encounter Details Date Type Department Care Team ([facility] st Contact Info) Description 10/10/2024 Telephone [facility] CH[facility] MED & PEDS [address] [place] [address] Nai Menendez MD 505 [place] [address] Pt1 Social History Tobacco Use Types Packs/Day [...] [facility] Physical Therapy Facility Address: [address] [place] [address] [place] [address] Escort needed: Y/N: No Do you have a wheelchair: Y/N: No If yes- Manual or electric: n/a Visits: 2-3 times a month for 6 months documented in this encounter Plan of Treatment Upcoming Encounters Date Type Department Care Team ([facility] st Contact Info) Description 10/31/2025 2:30 PM EST Clinical Support [facility] MED & PEDS [address] [place] [address] 11/13/2025 11:30 AM EST Office Visit [facility] MED & PEDS [address] [place] [address] Nai Menendez MD 505 [place] [address] documented as of this encounter Visit Diagnoses Not on filedocumented in this encounter Additional Health Concerns Assessment Noted Time PHQ-9 Depression Total Score: 4 02/02/20 24 9:37 AM EDT documented as of this encounter Care Teams Park Aide Relationship Specialty Start Date End Date Nai Menendez MD [address] [place] [address] PCP - General Internal Medicine 09/25/24 Phuong Fink Veneer GluerEnvironmental Science Instructor 12/05/24 documented as of this encounter
--- OUTSIDE RECORDS SUMMARY | 2025-10-29 17:19 | XMS_ITS | Encounter Summary ---
Author Organization [employer] Address [address] [facility] 7 [place] [address] Care Team Providers Care Organ Pipe Voicer Name Role Phone Nai Menendez MD Primary Care Provider [phone] Encounter Details Date Type Department Care Team (Late st Contact Info) Description 12/21/2024 Telephone [facility] MEDICINE [address] [place] [address] Nai Menendez MD 505 [place], [place] [phone] Social History Tobacco Use Types Packs/Day Years [...] Description 10/31/2025 2:30 PM EST Clinical Support [facility] MED & PEDS [address] [place] [address] 11/13/2025 11:30 AM EST Office Visit [facility] MED & PEDS [address] [place] [address] Nai Menendez MD 505 [place] [address] documented as of this encounter Visit Diagnoses Not on filedocumented in this encounter Additional Health Concerns Assessment Noted Time PHQ-9 Depression Total Score: 4 02/02/20 24 9:37 AM EDT documented as of this encounter Care Teams Organ Pipe Voicer Relationship Specialty Start Date End Date Nai Menendez MD [address] [place] [address] PCP - General Internal Medicine 09/25/24 Phuong Fink Medical Appointment ClerkFilm Replacement Orderer 12/05/24 documented as of this encounter
--- OUTSIDE RECORDS SUMMARY | 2025-10-29 17:19 | XMS_ITS | Encounter Summary ---
Author Organization [employer] Address 75 [facility] 7 [place] [address] Care Team Providers Care Electrical Engineering Teacher Name Role Phone Analy Chen MD Primary Care Provider [phone] Nai Menendez MD Primary Care Provider [phone] Reason for Visit * Reason Onset Date Comments Call Back Request 06/09/2024 Encounter Details Date Type Department Care Team (Late st Contact Info) Description 06/09/2024 Telephone [facility] MEDICINE 230 [place] [address] Analy Chen MD 505 [place] [address] Call Back Request Social History Tobacco Use [...] 2:30 PM EST Clinical Support [facility] MED & PEDS 505 [place] [address] 11/13/2025 11:30 AM EST Office Visit [facility] MED & PEDS 505 [place] [address] Nai Menendez MD 505 [place] [address] documented as of this encounter Visit Diagnoses Not on filedocumented in this encounter Additional Health Concerns Assessment Noted Time PHQ-9 Depression Total Score: 4 02/02/20 24 9:37 AM EDT documented as of this encounter Care Teams Electrical Engineering Teacher Relationship Specialty Start Date End Date Analy Chen MD [address] [place] [address] PCP - General Internal Medicine 02/02/24 09/24/24 Nai Menendez MD [address] [place] [address] PCP - General Internal Medicine 09/25/24 Phuong Fink Research SpecialistHydraulic Dredge Operator 12/05/24 documented as of this encounter
--- OUTSIDE RECORDS SUMMARY | 2025-10-29 17:20 | XMS_ITS | Encounter Summary ---
Author Organization [employer] Address 75 [facility] 7 [place] [address] Care Team Providers Care Soil Sampler Name Role Phone Analy Chen MD Primary Care Provider [phone] Nai Menendez MD Primary Care Provider [phone] Reason for Visit * Reason Onset Date Comments ER Follow-up 02/11/2024 Encounter Details Date Type Department Care Team (Late st Contact Info) Description 02/11/2024 Telephone [facility] MEDICINE 230 [place] [address] Analy Chen MD [address] [place] [address] ER Follow-up Social History Tobacco Use Types [...] ED visit on : Date: 02/08 Hospital: [facility] Seen for: Skin Lump had surgery on 01/26 for hernia and still had pain with a lump Patient advised will forward to team nurse for follow up documented in this encounter Plan of Treatment Upcoming Encounters Date Type Department Care Team (Late st Contact Info) Description 10/31/2025 2:30 PM EST Clinical Support [facility] MED & PEDS [address] [place] [address] 11/13/2025 11:30 AM EST Office Visit [facility] MED & PEDS [address] [place] [address] Nai Menendez MD [address] [place] [address] documented as of this encounter Visit Diagnoses Not on filedocumented in this encounter Additional Health Concerns Assessment Noted Time PHQ-9 Depression Total Score: 4 02/02/20 9:37 AM EDT documented as of this encounter Care Teams Soil Sampler Relationship Specialty Start Date End Date Analy Chen MD [address] [place] [address] PCP - General Internal Medicine 02/02/24 09/24/24 Nai Menendez MD [address] [place] [address] PCP - General Internal Medicine 09/25/24 Phuong Fink Laboratory ChemistGumming Machine Operator 12/05/24 documented as of this encounter
--- OUTSIDE RECORDS SUMMARY | 2025-10-29 17:20 | XMS_ITS | Encounter Summary ---
Author Organization [employer] Address [address] [facility] 7 [place] [address] Care Team Providers Care Manager Validation Name Role Phone Analy Chen MD Primary Care Provider [phone] Nai Menendez MD Primary Care Provider [phone] Reason for Visit * Reason Onset Date Comments Nurse Triage 02/09/2024 Encounter Details Date Type Department Care Team (Late st Contact Info) Description 02/09/2024 Telephone [facility] MEDICINE [address] [place] [address] Analy Chen MD [address] [place], [place] [phone] Nurse Triage Social History Tobacco Use Types [...] of previous surgery. No apts available in [facility] today or tomorrow. Pt is advised to come [facility] today for provider to see Pt and [...] [facility] MED & PEDS [address] [place] [address] 11/13/2025 11:30 AM EST Office Visit [facility] MED & PEDS [address] [place] [address] Nai Menendez MD [address] [place] [address] documented as of this encounter Visit Diagnoses Not on filedocumented in this encounter Additional Health Concerns Assessment Noted Time PHQ-9 Depression Total Score: 4 02/02/20 24 9:37 AM EDT documented as of this encounter Care Teams Manager Validation Relationship Specialty Start Date End Date Analy Chen MD [address] [place] [address] PCP - General Internal Medicine 02/02/24 09/24/24 Nai Menendez MD [address] [place] [address] PCP - General Internal Medicine 09/25/24 Phuong Fink Radiological Equipment SpecialistWebfocus Developer 12/05/24 documented as of this encounter
--- OUTSIDE RECORDS SUMMARY | 2025-10-29 17:20 | XMS_ITS | Encounter Summary ---
Author Organization [employer] Address [address] [place] [address] [place] [address] Care Team Providers Care Wire Turning Machine Operator Name Role Phone Nai Menendez MD Primary Care Provider [phone] Reason for Referral * Consultation (Routine) - Closed Specialty Diagnoses / Procedures Referred By Contac t Referred To Contact Physical Therapy Diagnoses Chronic pain of both knees Bilateral primary osteoarthritis of knee Nai Menendez MD [address] [place] [address] Phone: tel: fax: Physical Therapy, [address] [facility] [place] Phone: tel: fax: Referral ID Status Reason Start Date Expiration Date V isits Requested Visits Authorized [id number] Closed Specialty Services Required 08/09/2025 08/09/2026 1 1 Encounter Details Date Type Department Care Team (Late st Contact Info) Description 08/09/2025 Orders Only [facility] CHC MED & PEDS [address] [place], [place] [phone] Nai Menendez MD [address] [place], [place] [phone] Chronic pain of both knees (Primary Dx); [...] Upcoming Encounters Date Type Department Care Team ([facility] st Contact Info) Description 10/31/2025 2:30 PM EST Clinical Support [facility] MED & PEDS [address] [place] [address] 11/13/2025 11:30 AM EST Office Visit [facility] MED & PEDS [address] [place] [address] Nai Menendez MD 505 [place] [address] Scheduled Referrals Name Type Priority Associated Diagnoses [...] documented as of this encounter Care Teams Wire Turning Machine Operator Relationship Specialty Start Date End Date Nai Menendez MD [address] [place] [address] PCP - General Internal Medicine 09/25/24 Phuong Fink Electrician AssistantStaff Nurse Midwife 12/05/24 documented as of this encounter
--- OUTSIDE RECORDS SUMMARY | 2025-10-29 17:20 | XMS_ITS | Encounter Summary ---
Author Organization [employer] Address [address] [place] [address] Care Team Providers Care Press Tender Short Goods Name Role Phone Nai Menendez MD Primary Care Provider [phone] Reason for Referral * Consultation (Routine) - Closed Specialty Diagnoses / Procedures Referred By Contac t Referred To Contact Optometry Diagnoses Primary hypertension Nai Menendez MD [address] [place] [address] Phone: tel: fax: [facility] OPTOMETRY [address] [place] [address] Phone: tel: fax: Referral ID Status Reason Start Date Expiration Date V isits Requested Visits Authorized [id number] Closed Consult and Treat 05/01/2025 05/01/2026 1 1 Encounter Details Date Type Department Care Team (Late st Contact Info) Description 05/01/2025 Orders Only [facility] CH[facility] MED & PEDS [address] [place], [place] [phone] Nai Menendez MD [address] [place], [place] [phone] Primary hypertension (Primary Dx) Social History Tobacco [facility] [address] [place] [address] 11/13/2025 11:30 AM EST Office Visit [facility] MED & PEDS [address] [place] [address] Nai Menendez MD [address] [place] [address] Scheduled Referrals Name Type Priority Associated Diagnoses Orde r Schedule Referral to [facility] Eye Care Outpatient Referral Routine Primary hypertension [...] AM EDT Narrative 05/25/2025 9:16 AM EDT [facility] [address] [place] [address] Drive [address] [place] [address] XRay Report Signed Patient: Osei Fink MR#: [id number] 9 : 1970 Acct:[id number] Age/Sex: 55 / M ADM Date: 05/25/25 Loc: HO.HOSX Attending Dr: Nikky Okeefe MD Ordering Physician: Nikky Cummins Date of Service: 05/25/25 Procedure(s): XR lumbar spine 2-3V Accession Number(s): [id number] cc: Analy Chen MD; Nikky Cummins EXAMINATION: [...] in OV> 05/25/25912 DD/ 9 TD/TT: 05/25/25904 Geothermal System Installer: Procedure Note Donotuseinterpreter, Image - 05/25/2025 [facility] [address] [place] [address] XRay Report Signed Patient: Osei Fink#: [id number] 9 : 1970Acct:[id number] Age/Sex: 55 / MADM Date: 05/25/25 Loc: HO.ROSSANAX Attending Dr: Nikky Okeefe MD Ordering Physician: Nikky Cummins Date of Service: 05/25/25 Procedure(s): XR lumbar spine 2-3V Accession Number(s): [id number] cc: Analy Chen MD; Nikky Cummins EXAMINATION: [...] MDin OV> 05/25/25912 DD/ 9 TD/TT: 05/25/25904 Geothermal System Installer: [facility] External Provider IMG XR PROCEDURES Edited Result - Final * XR Hips Bilateral 3 or 4 Views with or without Pelvis (05/25/2025 7:50 AM EDT) Anatomical Region Laterality Modality Lower Extremities, Hip Bilateral Radiograp hic Imaging 05/25/2025 7:50 AM EDT Narrative 05/25/2025 9:16 AM EDT [facility] [address] [place] [address] XRay Report Signed Patient: Osei Fink MR#: [id number] 9 : 1970 Acct:[id number] Age/Sex: 55 / M ADM Date: 05/25/25 Loc: HO.HOSX Attending Dr: Nikky Okeefe MD Ordering Physician: Nikky Cummins Date of Service: 05/25/25 Procedure(s): XR hips SHANTE min 3V Accession Number(s): [id number] cc: Analy Chen MD; Nikky Cummins EXAMINATION: [...] 05/25/25 0913 DD/ 0750 TD/TT: 05/25/25 0905 Geothermal System Installer: Procedure Note Donotuseinterpreter, Image - 05/25/2025 [facility] [address] [place] [address] XRay Report Signed Patient: Osei FinkMR#: [id number] 9 : 1970Acct:[id number] Age/Sex: 55 / MADM Date: 05/25/25 Loc: HO.HOSX Attending Dr: Nikky Okeefe MD Ordering Physician: Nikky Cummins Date of Service: 05/25/25 Procedure(s): XR hips SHANTE min 3V Accession Number(s): [id number] cc: Analy Chen MD; Nikky Cummins EXAMINATION: [...] 05/25/25 0913 DD/ 0750 TD/TT: 05/25/25 0905 Geothermal System Installer: [facility] External Provider IMG XR PROCEDURES Edited Result - Final documented in this encounter Visit Diagnoses Diagnosis Primary hypertension- Primary Unspecified essential hypertension documented in this encounter Additional Health Concerns Assessment Noted Time PHQ-9 Depression Total Score: 6 03/23/20 25 8:22 AM EDT documented as of this encounter Care Teams Press Tender Short Goods Relationship Specialty Start Date End Date Nai Menendez MD [address] [place] [address] PCP - General Internal Medicine 09/25/24 Phuong Fink Ham Rolling Machine OperatorInterior Designer 12/05/24 documented as of this encounter
--- OUTSIDE RECORDS SUMMARY | 2025-10-29 17:20 | XMS_ITS | Encounter Summary ---
Author Organization [employer] Address 75 [facility] 7 [place] [address] Care Team Providers Care Clearance Coordinator Name Role Phone Nai Menendez MD Primary Care Provider [phone] Reason for Visit * Reason Comments Med Refill Encounter Details Date Type Department Care Team ([facility] Contact Info) Description 04/22/[address] [facility] CHC MED & PEDS [address] [place], [place] [phone] Nai Menendez MD [address] [place] [address] Subcutaneous nodule of abdominal wall Social History [...] Description 10/31/2025 2:30 PM EST Clinical Support [facility] MED & PEDS [address] [place] [address] 11/13/2025 11:30 AM EST Office Visit [facility] MED & PEDS [address] [place] [address] Nai Menendez MD [address] [place] [address] documented as of this encounter Visit Diagnoses Diagnosis Subcutaneous nodule of abdominal wall documented in this encounter Additional Health Concerns Assessment Noted Time PHQ-9 Depression Total Score: 6 03/23/20 25 8:22 AM EDT documented as of this encounter Care Teams Clearance Coordinator Relationship Specialty Start Date End Date Nai Menendez MD [address] [place] [address] PCP - General Internal Medicine 09/25/24 Phuong Fink Sports Complex AttendantMarine Pipefitter Helper 12/05/24 documented as of this encounter
== END 2025-10-29 14:59 ==
LOC: HO.CHCLNP 14:58
PROVIDERS: PCP Internal Medicine; Visit Provider Internal Medicine
DX: L02.91 Cutaneous abscess, unspecified (principal)
CPT/HCPCS: 87070; 87205